=== PATIENT | female | born 1970 | race Caucasian/White ===

== ENCOUNTER 2023-05-05 22:23 | Observation (INO) ==
[2023-05-05 22:54] LABS: Basophils # (auto) 0.01 K/uL (0.00-0.20); Basophils % (auto) 0.3 %; Hematocrit (blood only) 36.4 % (37.0-47.0); Hemoglobin 12.7 g/dl (12.0-16.0); Immature Granulocytes # (auto) 0.01 K/uL (0.01-0.20); Immature Granulocytes % (auto) 0.3 %; Lymphocytes # (auto) 1.04 K/uL (1.20-3.40); Lymphocytes % (auto) 31.2 %; Mean Corpuscular Hemoglobin 30.3 pg (25.0-34.0); Mean Corpuscular Hgb Conc 34.9 g/dL (32.0-36.0); Mean Corpuscular Volume 86.9 fL (80.0-100.0); Mean Platelet Volume 9.3 fL (9.4-12.4); Monocytes # (auto) 0.32 K/uL (0.11-0.59); Monocytes % (auto) 9.6 %; Neutrophils # (auto) 1.95 K/uL (1.40-6.50); Neutrophils % (auto) 58.6 %; Platelet Count 197 K/uL (130-400); RDW Coefficient of Variation 12.7 % (11.5-14.5); RDW Standard Deviation 40.1 fL (36.4-46.3); Red Blood Count 4.19 M/uL (4.20-5.40); White Blood Count 3.33 K/ul (4.8-10.8)
[2023-05-05 23:12] LABS: Albumin Globulin Ratio 2.1 (0.9-2); Albumin Level 4.4 gm/dl (3.4-5.0); BUN Creatinine Ratio 19.7 (10-20); Bilirubin,Total 1.1 mg/dl (0.2-1.0); Calcium 9.1 mg/dl (8.6-10.3); Creatinine Clr Calc Pharmacy 80.1 ml/min; Est GFR (African American) 112.7 ml/min; Est GFR (Non-African American) 97.2 ml/min; Globulin 2.1 gm/dl (2.5-4.0); Potassium 3.6 mmol/L (3.5-5.1); Total Protein 6.5 gm/dl (6.0-8.3)
[2023-05-05 23:18] LABS: Troponin I High Sensitivity 9.3 pg/ml (0-14)
[2023-05-05 23:30] LABS: Partial Thromboplastin Ratio 1.2; Partial Thromboplastin Time 33 Seconds (21-31); Prothrombin Time 11.1 Seconds (9.0-12.0)
[2023-05-05 23:39] LABS: Influenza A virus by PCR Negative (Neg); Influenza B virus by PCR Negative (Neg); RSV by PCR Negative (Neg); SARS CoV2 RNA(COVID-19) Ceph NEGATIVE (Negative)
--- NOTE | 2023-05-05 23:42 | Emergency Department Note ---
Impression & Plan Acute hyponatremia, Acute dyspnea ED Provider Note NAME: MONICA ERWIN AGE: 53 SEX: F : 1970 ARRIVES VIA: Walk-In INFORMANT: Patient, ED PROVIDER(S): Pillo Sorto MD CHIEF COMPLAINT: Shortness of breath MEDICAL DECISION MAKING: Patient presents due to concern for shortness of breath. IV was established and blood work was obtained. Chest x-ray also obtained. Chest x-ray without obvious pneumonia or pneumothorax. Patient was ordered a breathing treatment. Patient was noted to have hyponatremia to 120 with no priors for comparison patient does have leukopenia with a normal hemoglobin and platelet count. The patient's kidney function is unremarkable. Chloride also low. Pro-Alvaro is not elevated COVID flu and RSV negative. Troponin is not elevated. No ST elevations on EKG urine and serum electrolytes and osmolality ordered. I did speak to the on-call hospitalist Dr. Ordonez given the patient's hyponatremia and the patient was admitted to the medicine service. Discussion w/ other healthcare providers: Dr. Ordonez inpatient medicine service Prior /Outside records reviewed: I reviewed an EEG report from Dr. Daniel. Patient's interpretation was normal- appearing awake drowsy EEG. Differential diagnosis: Reactive airway disease, pneumonia, pneumothorax, COPD, CHF, ACS, pulmonary embolism, musculoskeletal, GERD as well as other pathologies were considered. Diagnostics, as interpreted by me: ECG: Sinus bradycardia with first-degree AV block, rate of 55 prolonged MA normal QRS, normal axis no ST elevations, T wave version in V2 but not V3. Cardiac monitoring: An order was placed for continuous cardiac monitoring. The monitor shows a rate of with rhythm. Patient was placed on pulse oximetry Medical decision rules: None Imaging studies: I informally interpreted the patient's chest x-ray does not show obvious pneumonia or pneumothorax with formal report to follow. HPI: Patient presents due to concern for shortness of breath. Patient states that this been ongoing for some time but may be worse just within the last week. The patient has had associated dry cough. She feels as though when she takes a big deep breath she does get some right-sided chest pain and feels as though her lungs cannot completely expand. The patient states that she had an issue with a partial collapsed lung 15 years ago. Patient is a former smoker and was smoking about 15 years ago. Patient denies any leg swelling or calf pain. The patient has not been eating or drinking as much and has had about 20 pound weight loss. Patient states that she has been traveling to and from [place] with increasing frequency as her mother was diagnosed with brain cancer. Patient denies any recent surgeries procedures or hospitalizations and no prior history of DVT or PE. PAST MEDICAL HISTORY: See Below PAST SURGICAL HISTORY: See Below SOCIAL HISTORY: See Below HOME MEDICATIONS: See Below ALLERGIES: See Below VITALS: See Below PHYSICAL EXAMINATION: GENERAL: NAD, non-toxic. Thin in appearance. EYE EXAM: Normal conjunctiva. PERRL, no anisocoria and EOM's grossly intact w/o pain. OROPHARYNX: Moist mucus membranes, grossly normal dentition. NECK: Trachea midline, no stridor. LUNGS: Clear to auscultation. Normal chest wall mechanics. HEART: NSR, no MRG. ABDOMEN: Abdomen soft, non-tender, no masses, no rebound or guarding. BACK: No CVA TTP. SKIN: No rashes and no bruising. UPPER EXTREMITIES: Upper extremities are grossly normal. LOWER EXTREMITIES: Grossly normal, no edema. Negative Homans' sign bilaterally. NEURO EXAM: A&O x3, cranial nerves II-XII grossly intact, normal speech, moves all 4 extremities. Past Med/Surg History Medical History Pelvic fracture Lumbar disc disease No chronic diseases present Surgical History Status post endovenous radiofrequency ablation (RFA) of saphenous vein Inguinal hernia No significant past surgical history Family History Mother Breast cancer Social History Smoking Status: Former smoker Preferred Language: Lebanese Feels Safe at Home: Yes Allergies Allergies Allergy/AdvReac Type Severity Reaction Status Date / Time peanut Allergy Severe edema Verified 05/06/23 00:17 latex Allergy Intermediate Rash Verified 05/06/23 00:17 wheat Allergy Intermediate CELIAC Verified 05/06/23 00:17 DISEASE escitalopram AdvReac Severe Seizure Verified 05/06/23 00:17 oxycodone AdvReac Severe Seizure Verified 05/06/23 00:17 acetaminophen AdvReac Intermediate Vomiting Verified 05/06/23 00:17 bupropion [From Wellbutrin] AdvReac Intermediate VISUAL Verified 05/06/23 00:17 DISTURBANCE Home Meds Home Medications Medication Instructions Recorded Confirmed No Known Home Medications 05/06/23 05/06/23 Results & Data (ED) Vital Signs Vital Signs - 24 hr 05/05/23 22:25 05/06/23 00:23 Temperature 35.4 C L Temperature Source Temporal Artery Scan Pulse Rate 56 L 57 L Respiratory Rate 16 Respiratory Effort / Characteristics Non-Labored Spontaneous Respiratory Depth Normal Blood Pressure 142/81 H Blood Pressure Mean 101 Pulse Oximetry 100 Oxygen Delivery Method Room Air Sepsis Recent Fever Within 48 Hours No Sepsis New/Unexplained Change in Mental Status No Sepsis Action Taken by Nursing No Action Required Home Medications Current Medication List: was personally reviewed by me Laboratory Data Attestation: I reviewed the patient's lab results. 05/05/23 22:40 05/05/23 22:40 Lab Results 05/05/23 05/05/23 Range/Units 22:40 22:52 WBC 3.33 L (4.8-10.8) K/ul RBC 4.19 L (4.20-5.40) M/uL Hgb 12.7 (12.0-16.0) g/dl Hct 36.4 L (37.0-47.0) % MCV 86.9 (80.0-100.0) fL MCH 30.3 (25.0-34.0) pg MCHC 34.9 (32.0-36.0) g/dL RDW Std Deviation 40.1 (36.4-46.3) fL RDW Coeff of Emanuel 12.7 (11.5-14.5) % Plt Count 197 (130-400) K/uL MPV 9.3 L (9.4-12.4) fL Immature Gran % (Auto) 0.3 % Neut % (Auto) 58.6 % Lymph % (Auto) 31.2 % [place] % (Auto) 9.6 % Eos % (Auto) 0.0 % Baso % (Auto) 0.3 % Neut # (Auto) 1.95 (1.40-6.50) K/uL Lymph # (Auto) 1.04 L (1.20-3.40) K/uL [place] # (Auto) 0.32 (0.11-0.59) K/uL Eos # (Auto) 0.00 (0.00-0.50) K/uL Baso # (Auto) 0.01 (0.00-0.20) K/uL Immature Gran # (Auto) 0.01 (0.01-0.20) K/uL PT 11.1 (9.0-12.0) Seconds INR 1.0 (0.9-1.1) APTT 33 H (21-31) Seconds PTT Ratio 1.2 Sodium 120 L (136-145) mmol/L Potassium 3.6 (3.5-5.1) mmol/L Chloride 85 L (98-107) mmol/L Carbon Dioxide 28 (21-32) mmol/L Anion Gap 7 (3-11) BUN 14 (6-23) mg/dl Creatinine 0.71 (0.6-1.2) mg/dl Est Cr Clr Drug Dosing 80.1 ml/min Est GFR ( Amer) 112.7 ml/min Est GFR (Non-Af Amer) 97.2 ml/min BUN/Creatinine Ratio 19.7 (10-20) Glucose 77 (70-99(Fasting)) mg/dl Calcium 9.1 (8.6-10.3) mg/dl Total Bilirubin 1.1 H (0.2-1.0) mg/dl AST 27 (13-39) U/L ALT 21 (7-52) U/L Alkaline Phosphatase 73 (34-104) U/L Troponin I High Sens 9.3 (0-14) pg/ml Total Protein 6.5 (6.0-8.3) gm/dl Albumin 4.4 (3.4-5.0) gm/dl Globulin 2.1 L (2.5-4.0) gm/dl Albumin/Globulin Ratio 2.1 H (0.9-2) Procalcitonin < 0.02 (0-0.5) ng/ml SARS-CoV-2 (PCR) NEGATIVE (Negative) Influenza Type A (PCR) Negative (Neg) Influenza Type B (PCR) Negative (Neg) RSV (RT-PCR) Negative (Neg) Administered Medications Discontinued Medications Albuterol (Albut/Ipratrop 3mg/0.5mg Neb 3 Ml Vial) 3 ml NEB NOW STA; Protocol Stop: 05/05/23 23:53 Last Admin: 05/06/23 00:01 Dose: 3 ml Documented By: VALERI Azithromycin (Azithromycin 250 Mg Tab) 500 mg PO NOW ONE Stop: 05/05/23 23:53 Last Admin: 05/06/23 00:01 Dose: 500 mg Documented By: VALERI Discharge Plan Visit Data Chief Complaint: Shortness of Breath/Dyspnea Stated Complaint: SOB, CHEST PAIN, PALPITATIONS ED Provider: Pillo Sorto Discharge Problem: Acute hyponatremia, Acute dyspnea Forms Stand Alone Forms: [facility] Prescriptions Prescriptions: No Action No Known Home Medications Referrals Referrals: Hernando Maki MD [Primary Care Provider] -
[2023-05-06] MEDS: AZITHROMYCIN 250 MG TAB PO ONE (00:01)
[2023-05-06] MEDS: ALBUT/IPRATROP 3MG/0.5MG NEB 3 ML VIAL NEB STA (00:01)
[2023-05-06 01:00] LABS: Magnesium 2.1 mg/dl (1.7-2.4)
[2023-05-06] MEDS: SODIUM CHLORIDE 0.9% 500 ML IV ONE (01:00)
[2023-05-06 01:17] LABS: Thyroid Stimulating Hormone 3.152 uIu/ml (0.300-4.500)
[2023-05-06] MEDS ORDERED: ACETAMINOPHEN 325 MG TAB PO PRN (01:17)
[2023-05-06] MEDS: OPTIRAY 350 500ml IV ONE (01:39)
--- NOTE | 2023-05-06 02:16 | History & Physical Report ---
Date of Service May 06, 2023 Assessment & Plan (1) Acute hyponatremia: Plan: Worsening hyponatremia noted on review of outpatient blood work from January 2023 Possible seizure History multiple concussions hx paranoia/mood disorder/PTSD Patient notably anxious on exam with multiple somatic complaints. Patient currently not on maintenance medications hx pituitary adenoma as per records Recent outpatient MRI negative for tumor past tobacco/alcohol abuse Medical telemetry Careful correction of sodium Hyponatremia workup Nephrology consult Re: Hyponatremia Initiate Keppra for possible new onset seizure Seizure precautions, Ativan prn active seizures Brain MRI for seizure workup Neurology consult Re: Possible new onset seizures (Patient known to [facility]. Defer decision regarding EEG to specialist given recent outpatient EEG from last month.) Inpatient psychiatry consult as per patient request for bipolar disorder. DVT prophylaxis per Lovenox subcu Full code. Text document was generated using [employer] voice recognition software. It may contain grammatical or spelling errors. Kindly contact undersigned for clarification of any documentation item in question. History of Present Illness Chief Complaint: Shortness of breath, chest pain, worsening seizures Primary Care Provider: Hernando Maki MD History obtained from patient, family, and records. Medical history significant for paranoia, mood disorder, PTSD, pituitary adenoma as per records, history of multiple concussions, past tobacco/alcohol abuse Patient thinks she is having more seizures the last few weeks. Patient waking up with with mouth bruising, denies incontinence. Episodic shaking episodes which she has told her doctors about before. Patient admits to a lot of stress at home and at work the last few months. Patient wants to start taking medication again for bipolar disorder. Denies suicidality. Worsening shortness of breath the past week. Dry cough symptoms with poor appetite. Achy abdominal pain with nausea with emesis and transient hematuria symptoms. Does not think she is drinking enough water. Waking up gasping for air. 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 Pleuritic right-sided chest pain. 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 Allergies Allergy/AdvReac Type Severity Reaction Status Date / Time peanut Allergy Severe edema Verified 05/06/23 00:17 latex Allergy Intermediate Rash Verified 05/06/23 00:17 wheat Allergy Intermediate CELIAC Verified 05/06/23 00:17 DISEASE escitalopram AdvReac Severe Seizure Verified 05/06/23 00:17 oxycodone AdvReac Severe Seizure Verified 05/06/23 00:17 acetaminophen AdvReac Intermediate Vomiting Verified 05/06/23 00:17 bupropion [From Wellbutrin] AdvReac Intermediate VISUAL Verified 05/06/23 00:17 DISTURBANCE Home Medications Medication Instructions Recorded Confirmed Type No Known Home Medications 05/06/23 05/06/23 History Past Med/Surg History Medical History Pelvic fracture Lumbar disc disease No chronic diseases present Surgical History Status post endovenous radiofrequency ablation (RFA) of saphenous vein Inguinal hernia No significant past surgical history Family History Mother Breast cancer Social History Smoking Status: Never smoker Hx Alcohol Use: No Hx Substance Use: No Preferred Language: Bulgarian Communication Ability: 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 Beliefs That Will Affect Care: None Feels Safe at Home: Yes Review of Systems Review of Systems: As per HPI, all other systems reviewed and negative Physical Exam Physical Exam: GENERAL: Slightly uncomfortable, anxious, no respiratory distress SKIN: Normal color, warm HEENT: [place] palpebral conjunctivae, no ptosis, dry buccal mucosa NECK : Supple, no tenderness CHEST : CTA, right chest wall tenderness HEART : Bradycardic, no obvious murmurs ABDOMEN: Some distention, nontender EXTREMITIES : No LE swelling/tenderness, no other conspicuous deformities noted NEUROLOGIC : Coherent, no facial asymmetry, no other gross focality Results & Data Results & Data Vital Signs (Past 12 Hours) Vital Signs Temp Pulse Resp BP Pulse Ox O2 Del Method 05/06/23 02:12 Room Air 05/06/23 02:12 98 Room Air 05/06/23 02:11 Room Air 05/06/23 02:00 121/81 05/06/23 02:00 100 05/06/23 01:30 57 L 7 L 99 05/06/23 01:00 58 L 12 99 05/06/23 01:00 120/79 03/21/24 00:30 62 9 L 99 05/06/23 00:23 57 L 9 L 99 05/06/23 00:23 57 L 05/05/23 22:25 35.4 C L 56 L 16 142/81 H 100 Room Air Laboratory Results Laboratory Results WBC 3.33 K/ul (4.8-10.8) L 05/05/23 22:40 RBC 4.19 M/uL (4.20-5.40) L 05/05/23 22:40 Hgb 12.7 g/dl (12.0-16.0) 05/05/23 22:40 Hct 36.4 % (37.0-47.0) L 05/05/23 22:40 MCV 86.9 fL (80.0-100.0) 05/05/23 22:40 MCH 30.3 pg (25.0-34.0) 05/05/23 22:40 MCHC 34.9 g/dL (32.0-36.0) 05/05/23 22:40 RDW Std Deviation 40.1 fL (36.4-46.3) 05/05/23 22:40 RDW Coeff of Emanuel 12.7 % (11.5-14.5) 05/05/23 22:40 Plt Count 197 K/uL (130-400) 05/05/23 22:40 MPV 9.3 fL (9.4-12.4) L 05/05/23 22:40 Immature Gran % (Auto) 0.3 % 05/05/23 22:40 Neut % (Auto) 58.6 % 05/05/23 22:40 Lymph % (Auto) 31.2 % 05/05/23 22:40 [place] % (Auto) 9.6 % 05/05/23 22:40 Eos % (Auto) 0.0 % 05/05/23 22:40 Baso % (Auto) 0.3 % 05/05/23 22:40 Neut # (Auto) 1.95 K/uL (1.40-6.50) 05/05/23 22:40 Lymph # (Auto) 1.04 K/uL (1.20-3.40) L 05/05/23 22:40 [place] # (Auto) 0.32 K/uL (0.11-0.59) 05/05/23 22:40 Eos # (Auto) 0.00 K/uL (0.00-0.50) 05/05/23 22:40 Baso # (Auto) 0.01 K/uL (0.00-0.20) 05/05/23 22:40 Immature Gran # (Auto) 0.01 K/uL (0.01-0.20) 05/05/23 22:40 PT 11.1 Seconds (9.0-12.0) 05/05/23 22:40 INR 1.0 (0.9-1.1) 05/05/23 22:40 APTT 33 Seconds (21-31) H 05/05/23 22:40 PTT Ratio 1.2 05/05/23 22:40 Sodium 120 mmol/L (136-145) L 05/05/23 22:40 Potassium 3.6 mmol/L (3.5-5.1) 05/05/23 22:40 Chloride 85 mmol/L (98-107) L 05/05/23 22:40 Carbon Dioxide 28 mmol/L (21-32) 05/05/23 22:40 Anion Gap 7 (3-11) 05/05/23 22:40 BUN 14 mg/dl (6-23) 05/05/23 22:40 Creatinine 0.71 mg/dl (0.6-1.2) 05/05/23 22:40 Est Cr Clr Drug Dosing 80.1 ml/min 05/05/23 22:40 Est GFR ( Amer) 112.7 ml/min 05/05/23 22:40 Est GFR (Non-Af Amer) 97.2 ml/min 05/05/23 22:40 BUN/Creatinine Ratio 19.7 (10-20) 05/05/23 22:40 Glucose 77 mg/dl (70-99(Fasting)) 05/05/23 22:40 Osmolality 249 mOsm/kg (280-300) L 05/05/23 22:40 Calcium 9.1 mg/dl (8.6-10.3) 05/05/23 22:40 Magnesium 2.1 mg/dl (1.7-2.4) 05/05/23 22:40 Total Bilirubin 1.1 mg/dl (0.2-1.0) H 05/05/23 22:40 AST 27 U/L (13-39) 05/05/23 22:40 ALT 21 U/L (7-52) 05/05/23 22:40 Alkaline Phosphatase 73 U/L (34-104) 05/05/23 22:40 Troponin I High Sens 9.3 pg/ml (0-14) 05/05/23 22:40 Total Protein 6.5 gm/dl (6.0-8.3) 05/05/23 22:40 Albumin 4.4 gm/dl (3.4-5.0) 05/05/23 22:40 Globulin 2.1 gm/dl (2.5-4.0) L 05/05/23 22:40 Albumin/Globulin Ratio 2.1 (0.9-2) H 05/05/23 22:40 Lipase 26 U/L (11-82) 05/05/23 22:40 Procalcitonin < 0.02 ng/ml (0-0.5) 05/05/23 22:40 TSH 3.152 uIu/ml (0.300-4.500) 05/05/23 22:40 SARS-CoV-2 (PCR) NEGATIVE (Negative) 05/05/23 22:52 Influenza Type A (PCR) Negative (Neg) 05/05/23 22:52 Influenza Type B (PCR) Negative (Neg) 05/05/23 22:52 RSV (RT-PCR) Negative (Neg) 05/05/23 22:52 Abdomen/Pelvis CT 05/06/23 01:16 Exam(s): CT ABDOMEN + PELVIS With Contrast IV Amt: 111 cc opti 350 EXAM: CT Abdomen and Pelvis With Intravenous Contrast CLINICAL HISTORY: Reason for exam: abd pain. TECHNIQUE: Axial computed tomography images of the abdomen and pelvis with intravenous contrast. CTDI is 9.46 mGy and DLP is 475.78 mGy-cm. Automated exposure control was utilized for the study. A dose lowering technique was utilized adhering to the principles of ALARA. CONTRAST: Patient received 111 cc opti 350 of IV contrast COMPARISON: No relevant prior studies available. FINDINGS: Lung bases: Unremarkable. No mass. No consolidation. ABDOMEN: Liver: Unremarkable. No mass. Gallbladder and bile ducts: Unremarkable. No calcified stones. No ductal dilation. Pancreas: Unremarkable. No mass. No ductal dilation. Spleen: Unremarkable. No splenomegaly. Adrenals: Unremarkable. No mass. Kidneys and ureters: Unremarkable. No solid mass. No hydronephrosis. Stomach and bowel: Mild wall thickening of small bowel, correlate for mild enteritis. Mild fecal retention. No obstruction. PELVIS: Appendix: No findings to suggest acute appendicitis. Bladder: Unremarkable. No mass. Reproductive: Unremarkable as visualized. ABDOMEN and PELVIS: Intraperitoneal space: Unremarkable. No free air. No significant fluid collection. 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 No acute fracture. No dislocation. Soft tissues: Unremarkable. Vasculature: Unremarkable. No abdominal aortic aneurysm. Lymph nodes: Unremarkable. No enlarged lymph nodes. IMPRESSION: Mild wall thickening of small bowel, correlate for mild enteritis. Electronically signed by: Kevin Hoang MD 05/06/23 03:34 AM Chest CTA 05/06/23 01:16 Exam(s): CTA CHEST IV Amt: 111 cc opti 350 EXAM: CT Angiography Chest With Intravenous Contrast CLINICAL HISTORY: Reason for exam: cp. TECHNIQUE: Axial computed tomographic angiography images of the chest with intravenous contrast. CTDI is 9.55 mGy and DLP is 298.8 mGy-cm. Automated exposure control was utilized for the study. A dose lowering technique was utilized adhering to the principles of ALARA. MIP reconstructed images were created and reviewed. COMPARISON: No relevant prior studies available. FINDINGS: Pulmonary arteries: Unremarkable. No pulmonary embolism. Aorta: No acute findings. No thoracic aortic aneurysm. Lungs: Unremarkable. No mass. No consolidation. Pleural space: Unremarkable. No significant effusion. No pneumothorax. Heart: Unremarkable. No cardiomegaly. No significant pericardial effusion. No evidence of RV dysfunction. Bones/joints: No acute fracture. No dislocation. Soft tissues: Unremarkable. Lymph nodes: Unremarkable. No enlarged lymph nodes. IMPRESSION: Normal chest CTA. No pulmonary embolism. Electronically signed by: Kevin Hoang MD 05/06/23 03:[address] 05/06/23 01:16 Exam(s): CT HEAD Without Contrast EXAM: CT Head Without Intravenous Contrast CLINICAL HISTORY: Reason for exam: ricks, sz. TECHNIQUE: Axial computed tomography images of the head/brain without intravenous contrast. CTDI is 37.78 mGy and DLP is 624.41 mGy-cm. Automated exposure control was utilized for the study. A dose lowering technique was utilized adhering to the principles of ALARA. COMPARISON: Comparison made to prior brain MRI from April 13, 2023. FINDINGS: Brain: Unremarkable. No hemorrhage. No significant white matter disease. No edema. Ventricles: Unremarkable. No ventriculomegaly. Bones/joints: Unremarkable. No acute fracture. Soft tissues: Unremarkable. Sinuses: Unremarkable as visualized. No acute sinusitis. Mastoid air cells: Unremarkable as visualized. No mastoid effusion. IMPRESSION: No evidence of acute intracranial pathology. Electronically signed by: Lara Lucas MD 05/06/23 03:13 AM Diagnostic Findings EKG as per my interpretation : Rate 55, sinus bradycardia, normal axis, 1 AVB, septal infarct, T wave inversions, septal leads
[2023-05-06] MEDS: levETIRAcetam 500 MG/5 ML VIAL IV STA (03:05)
--- NOTE | 2023-05-06 03:09 | CT Scan Report ---
Exam(s): CTA CHEST IV Amt: 111 cc opti 350 EXAM: CT Angiography Chest With Intravenous Contrast CLINICAL HISTORY: Reason for exam: cp. TECHNIQUE: Axial computed tomographic angiography images of the chest with intravenous contrast. CTDI is 9.55 mGy and DLP is 298.8 mGy-cm. Automated exposure control was utilized for the study. A dose lowering technique was utilized adhering to the principles of ALARA. MIP reconstructed images were created and reviewed. COMPARISON: No relevant prior studies available. FINDINGS: Pulmonary arteries: Unremarkable. No pulmonary embolism. Aorta: No acute findings. No thoracic aortic aneurysm. Lungs: Unremarkable. No mass. No consolidation. Pleural space: Unremarkable. No significant effusion. No pneumothorax. Heart: Unremarkable. No cardiomegaly. No significant pericardial effusion. No evidence of RV dysfunction. Bones/joints: No acute fracture. No dislocation. Soft tissues: Unremarkable. Lymph nodes: Unremarkable. No enlarged lymph nodes. IMPRESSION: Normal chest CTA. No pulmonary embolism. Electronically signed by: Kevin Hoang MD 05/06/23 03:08 AM
--- NOTE | 2023-05-06 03:14 | CT Scan Report ---
Exam(s): CT HEAD Without Contrast EXAM: CT Head Without Intravenous Contrast CLINICAL HISTORY: Reason for exam: ricks, sz. TECHNIQUE: Axial computed tomography images of the head/brain without intravenous contrast. CTDI is 37.78 mGy and DLP is 624.41 mGy-cm. Automated exposure control was utilized for the study. A dose lowering technique was utilized adhering to the principles of ALARA. COMPARISON: Comparison made to prior brain MRI from April 13, 2023. FINDINGS: Brain: Unremarkable. No hemorrhage. No significant white matter disease. No edema. Ventricles: Unremarkable. No ventriculomegaly. Bones/joints: Unremarkable. No acute fracture. Soft tissues: Unremarkable. Sinuses: Unremarkable as visualized. No acute sinusitis. Mastoid air cells: Unremarkable as visualized. No mastoid effusion. IMPRESSION: No evidence of acute intracranial pathology. Electronically signed by: Lara Lucas MD 05/06/23 03:13 AM
--- NOTE | 2023-05-06 03:35 | CT Scan Report ---
Exam(s): CT ABDOMEN + PELVIS With Contrast IV Amt: 111 cc opti 350 EXAM: CT Abdomen and Pelvis With Intravenous Contrast CLINICAL HISTORY: Reason for exam: abd pain. TECHNIQUE: Axial computed tomography images of the abdomen and pelvis with intravenous contrast. CTDI is 9.46 mGy and DLP is 475.78 mGy-cm. Automated exposure control was utilized for the study. A dose lowering technique was utilized adhering to the principles of ALARA. CONTRAST: Patient received 111 cc opti 350 of IV contrast COMPARISON: No relevant prior studies available. FINDINGS: Lung bases: Unremarkable. No mass. No consolidation. ABDOMEN: Liver: Unremarkable. No mass. Gallbladder and bile ducts: Unremarkable. No calcified stones. No ductal dilation. Pancreas: Unremarkable. No mass. No ductal dilation. Spleen: Unremarkable. No splenomegaly. Adrenals: Unremarkable. No mass. Kidneys and ureters: Unremarkable. No solid mass. No hydronephrosis. Stomach and bowel: Mild wall thickening of small bowel, correlate for mild enteritis. Mild fecal retention. No obstruction. PELVIS: Appendix: No findings to suggest acute appendicitis. Bladder: Unremarkable. No mass. Reproductive: Unremarkable as visualized. ABDOMEN and PELVIS: Intraperitoneal space: Unremarkable. No free air. No significant fluid collection. 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 No acute fracture. No dislocation. Soft tissues: Unremarkable. Vasculature: Unremarkable. No abdominal aortic aneurysm. Lymph nodes: Unremarkable. No enlarged lymph nodes. IMPRESSION: Mild wall thickening of small bowel, correlate for mild enteritis. Electronically signed by: Kevin Hoang MD 05/06/23 03:34 AM
[2023-05-06] MEDS ORDERED: LORazepam 1 MG in SYRINGE 0.5 ML IV PRN (03:52)
[2023-05-06] MEDS ORDERED: PROMETHAZINE HCL 6.25 MG in SODIUM CHLORIDE 0.9% 50 ML IV PRN (03:52)
[2023-05-06] MEDS: guaiFENesin 600 MG TABCR PO STA (04:42)
[2023-05-06] MEDS: LORazepam 0.25 MG in SYRINGE 0.125 ML IV STA (04:42)
[2023-05-06 04:44] LABS: Basophils # (auto) 0.02 K/uL (0.00-0.20); Basophils % (auto) 0.6 %; Hematocrit (blood only) 40.4 % (37.0-47.0); Hemoglobin 14.3 g/dl (12.0-16.0); Lymphocytes # (auto) 1.23 K/uL (1.20-3.40); Lymphocytes % (auto) 37.3 %; Mean Corpuscular Hemoglobin 30.3 pg (25.0-34.0); Mean Corpuscular Hgb Conc 35.4 g/dL (32.0-36.0); Mean Corpuscular Volume 85.6 fL (80.0-100.0); Mean Platelet Volume 9.4 fL (9.4-12.4); Monocytes # (auto) 0.32 K/uL (0.11-0.59); Monocytes % (auto) 9.7 %; Neutrophils # (auto) 1.73 K/uL (1.40-6.50); Neutrophils % (auto) 52.4 %; Platelet Count 202 K/uL (130-400); RDW Coefficient of Variation 12.3 % (11.5-14.5); RDW Standard Deviation 38.5 fL (36.4-46.3); Red Blood Count 4.72 M/uL (4.20-5.40)
[2023-05-06 05:16] LABS: BUN Creatinine Ratio 16.9 (10-20); Calcium 9.3 mg/dl (8.6-10.3); Creatinine Clr Calc Pharmacy 87.5 ml/min; Est GFR (African American) 117.5 ml/min; Est GFR (Non-African American) 101.4 ml/min; Potassium 3.9 mmol/L (3.5-5.1)
[2023-05-06] MEDS: GADOBUTROL 65ML VIAL IV ONE (05:18)
--- NOTE | 2023-05-06 07:11 | Magnetic Resonance Report ---
MRI OF THE BRAIN COMBO CLINICAL HISTORY: Seizure. COMPARISON STUDY: CT of the brain dated 05/06/2023. MRI of the brain dated 04/13/2023. TECHNIQUE: MRI of the brain was performed utilizing various T1 and T2-weighted sequences in the axial , sagittal, and coronal planes. Contrast-enhanced sequences were acquired following the administratio n of 5.5 cc of Gadavist. The examination is performed using the seizure protocol. The examination is modestly degraded by motion artifact. FINDINGS: Brain parenchyma: The brain parenchyma is normal in appearance. There is no hemorrhage or mass effect . There is no restricted diffusion to suggest acute ischemia. No enhancing mass lesion is identified on the postcontrast images. Farooq-white matter differentiation is preserved. No extra-axial fluid guillermo ection is seen. The cerebellar tonsils are normal in configuration. The hippocampi are normal and sym metric. Ventricles, sulci, and cisterns: Normal in configuration. Pituitary and sella: Unremarkable. Intracranial vasculature: Normal flow voids are maintained at the skull base. Orbits: The bony orbits are grossly intact. Orbital contents are normal in appearance. Sinuses and mastoids: There is an 11 mm retention cyst in the left maxillary sinus. The remaining par anasal sinuses and the mastoid air cells are clear. Calvarium: Unremarkable. Cervical cord: Partially visualized cervical spinal cord is normal in morphology and signal intensity . IMPRESSION: No acute intracranial abnormality. ACT 112: Negative or not required by law. Electronically signed by: Melvin Houston M.D. 05/06/2023 7:08 AM
--- NOTE | 2023-05-06 07:58 | XRay Report ---
XR chest 1V not portable CLINICAL HISTORY: Chest pain, nonspecific COMPARISON STUDY: Chest December 06, 2018. FINDINGS: Lung volumes are normal. Lungs are clear. There is no pneumothorax or pleural effusion. Car diac size is normal. Mediastinal contours are normal. There is no evidence for pulmonary edema. IMPRESSION: No acute cardiopulmonary findings. ACT 112: Negative or not required by law. Electronically signed by: Eben Rey M.D. 05/06/2023 7:57 AM
[2023-05-06] MEDS: levETIRAcetam 500 MG TAB PO SCH (09:15)
[2023-05-06] MEDS: ENOXAPARIN INJ 30 MG/0.3 ML SYR SQ SCH (09:15)
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
--- NOTE | 2023-05-06 09:30 | Electrocardiogram Report ---
Test Reason : Blood Pressure : / mmHG Vent. Rate : 055 BPM Atrial Rate : 055 BPM P-R Int : 226 ms QRS Dur : 086 ms QT Int : 434 ms P-R-T Axes : 070 074 054 degrees QTc Int : 415 ms Sinus bradycardia with 1st degree A-V block Possible Left atrial enlargement Abnormal ECG When compared with ECG of 09-NOV-1997 15:19, WI interval has increased Confirmed by Chris Kay ([id number]) on 05/06/2023 9:30:02 AM Referred By: REFERRED SELF Confirmed By:Devon Kay
[2023-05-06 10:10] LABS: Appearance Urine Clear (Clear); Bilirubin Urine Negative (Negative); Blood Urine Negative (Negative); Color Urine Yellow; Glucose Urine UA Negative (Negative); Ketones Urine Negative (Negative); Leukocyte Esterase Urine Negative (Negative); Nitrite Urine Negative (Negative); Protein Urine Negative (Negative); Specific Gravity Urine 1.029 (1.000-1.030); Urobilinogen Urine Negative (Negative); pH Urine 7.5 (4.5-7.5)
[2023-05-06 10:26] LABS: Urine Potassium 21.9 mmol/L
[2023-05-06 10:34] LABS: Amphetamines+Metham, Urine Neg (Neg); Barbiturates, Urine Neg (Neg); Benzodiazepine, Urine Neg (Neg); Cocaine, Urine Neg (Neg); MDMA (Ecstacy), Urine Neg (Neg); Marijuana, Urine Neg (Neg); Methadone, Urine Neg (Neg); Opiate, Urine Neg (Neg); Phencyclidine, Urine Neg (Neg)
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
[2023-05-06] MEDS: DEXTROSE 5% 1,000 ML IV SCH (11:03)
[2023-05-06] MEDS: DESMOPRESSIN ACETATE 1 MCG in SODIUM CHLORIDE 0.9% 50 ML IV ONE (13:34)
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
--- NOTE | 2023-05-06 15:37 | Communication Note ---
Date of Service: May 06, 2023 consult received, chart reviewed. Patient was seen by liaison: Met with patient for consult service. Patient resting in bed, A&Ox4, able to answer questions. Patient appears distracted but answered questions appropriately. She reports having a history of Bipolar disorder, diagnosed by Dr. Orourke at [facility], "a few years ago"; patient also had therapy at that time. Unsure if patient is a reliable historian, gives vague symptoms and timeframes are non specific. She denies a history of psych inpatient treatment or suicidal i deation/SIB. She feels she has had marisela in the past but again, did not require inpatient treatment. She has had several medication trials, most of which "didn't work well. A lot of side effects". She had been prescribed Pristiq last month, patient reports not taking it currently and does not feel it was effective. She reports a history of visual hallucinations, paranoia and possibly voices. Denies having any of these symptoms in the past few days. She has a history of alcoholism, sober x 3 years. She recently smoked marijuana, "only once" and is regretting this. Patient reports her work is stressful d/t poor concentration and poor sleep; also financially struggling. Patient has been traveling to [place] frequently to support her mother with brain cancer. She is focused on starting medications "for bipolar", psychiatrist will follow-up. She is interested in outpatient referrals for psych med management and therapy; DIEGO signed for [facility]. Will explore options for therapy. Patient reports having supports, including her brother (Abdulaziz), DIEGO signed. Liaison to reach out to brother for collateral. Of note patient was admitted with sodium of 120 and today 129 which can explain some degree of AMS. She is not an immediate candidate to resume psychiatric medication due to this. Unclear to what degree her psychiatric condition is contributing to her polydipsia. Full consult to follow as patient to remain hospitalized.
--- NOTE | 2023-05-06 20:44 | Hospitalist Progress Note ---
Date of Service May 06, 2023 Assessment & Plan (1) Acute hyponatremia: Plan Pt is a 53yoF with PMHx significant for paranoia, mood disorder, PTSD, pituitary adenoma as per records, history of multiple concussions, past tobacco/alcohol abuse presenting with hyponatremia, altered mental status and possible seizures. Hyponatremia- sodium of 120 on admission. Nephrology on board, concerned correcting too quickly. On D5w with DDVAP. Per nephrology goal is to try to correct Na about 10 in 24 hrs and 18 in 48 hrs. Bipolar, paranoia- psych consulted, appreciate recs New seizures- brain MRI with no acutr findings. neurology consulted, pending repeat EEG outpt, recommending not to start antiseizure meds at this time. Keppra discontinued. Seizure precautions, Ativan prn active seizures For full documentation or further discussion of the above, please see History and Physical from the same date of service. DVT prophylaxis per Lovenox subcu Full code. Admission and Anticipated Discharge Date Admission Date: May 06, 2023 Subjective Pt was seen while still down in the ED. States that she was having "trouble breathing with right lung". Was on RA during the exam. Review of Systems Review of Systems: All systems reviewed & are unremarkable except as noted in Subjective Physical Exam Physical Exam: General: Alert, oriented. No acute distress Skin: No noted rashes or bruises Psych: Appropriate mood and affect Neuro: No gross deficits HEENT: NC/AT Chest: Nontender to palpation. CV: RRR, Normal s1, s2. No murmurs appreciated Resp: Breath sounds clear bilaterally, no increased effort of breathing. No crackles/rhonchi/rales. Abdomen: BS+. Soft, nontender, nondistended. No guarding. No organomegaly appreciated. Extremities: No edema in lower extremities bilaterally. Results & Data Results & Data Vital Signs (Past 12 Hours) Vital Signs Temp Pulse Pulse Resp BP BP Pulse Ox 05/06/23 08:00 52 L 10 L 05/06/23 08:00 118/79 05/06/23 07:46 119/79 05/06/23 07:46 56 L 10 L 05/06/23 07:24 51 L 05/06/23 07:00 52 L 10 L 05/06/23 04:36 52 L 14 114/83 100 05/06/23 04:10 55 L 05/06/23 02:12 05/06/23 02:12 98 05/06/23 02:11 05/06/23 02:00 121/81 05/06/23 02:00 100 05/06/23 01:30 57 L 7 L 99 05/06/23 01:00 58 L 12 99 05/06/23 01:00 120/79 05/06/23 00:30 62 9 L 99 05/06/23 00:23 57 L 9 L 99 05/06/23 00:23 57 L 05/05/23 22:25 35.4 C L 56 L 16 142/81 H 100 O2 Del Method 05/06/23 08:00 05/06/23 08:00 05/06/23 07:46 05/06/23 07:46 05/06/23 07:24 05/06/23 07:00 05/06/23 04:36 Room Air 05/06/23 04:10 05/06/23 02:12 Room Air 05/06/23 02:12 Room Air 05/06/23 02:11 Room Air 05/06/23 02:00 05/06/23 02:00 05/06/23 01:30 05/06/23 01:00 05/06/23 01:00 05/06/23 00:30 05/06/23 00:23 05/06/23 00:23 05/05/23 22:25 Room Air
[2023-05-06] MEDS: HYDROCODONE/ACETAMOPHEN 5/325MG TAB PO PRN (20:45)
[2023-05-06] MEDS: guaiFENesin 600 MG TABCR PO SCH (21:49)
[2023-05-06] MEDS ORDERED: Nursing to Pharmacy Communication SCH (22:00)
[2023-05-07 05:08] LABS: Basophils # (auto) 0.02 K/uL (0.00-0.20); Basophils % (auto) 0.8 %; Hematocrit (blood only) 37.9 % (37.0-47.0); Hemoglobin 13.2 g/dl (12.0-16.0); Lymphocytes # (auto) 0.81 K/uL (1.20-3.40); Mean Corpuscular Hemoglobin 29.9 pg (25.0-34.0); Mean Corpuscular Hgb Conc 34.8 g/dL (32.0-36.0); Mean Corpuscular Volume 85.9 fL (80.0-100.0); Mean Platelet Volume 9.3 fL (9.4-12.4); Monocytes # (auto) 0.34 K/uL (0.11-0.59); Neutrophils # (auto) 1.44 K/uL (1.40-6.50); Neutrophils % (auto) 55.2 %; Platelet Count 195 K/uL (130-400); RDW Coefficient of Variation 12.8 % (11.5-14.5); Red Blood Count 4.41 M/uL (4.20-5.40); White Blood Count 2.61 K/ul (4.8-10.8)
[2023-05-07 05:21] LABS: Albumin Globulin Ratio 2.1 (0.9-2); Albumin Level 3.8 gm/dl (3.4-5.0); BUN Creatinine Ratio 10.8 (10-20); Bilirubin,Total 1.1 mg/dl (0.2-1.0); Calcium 8.4 mg/dl (8.6-10.3); Creatinine Clr Calc Pharmacy 87.5 ml/min; Est GFR (African American) 117.5 ml/min; Est GFR (Non-African American) 101.4 ml/min; Globulin 1.8 gm/dl (2.5-4.0); Magnesium 1.8 mg/dl (1.7-2.4); Phosphorus 2.8 mg/dl (2.5-4.9); Potassium 3.4 mmol/L (3.5-5.1); Total Protein 5.6 gm/dl (6.0-8.3)
--- NOTE | 2023-05-07 09:05 | Discharge Summary ---
Discharge Summary Date of Service May 07, 2023 Notes For Next Care Provider Pt eloped from the hospital. Per psych, pursuing a 302 warrant. Medication Changes From Visit None Admission HPI Per Admitting Provider History obtained from patient, family, and records. Medical history significant for paranoia, mood disorder, PTSD, pituitary adenoma as per records, history of multiple concussions, past tobacco/alcohol abuse Patient thinks she is having more seizures the last few weeks. Patient waking up with with mouth bruising, denies incontinence. Episodic shaking episodes which she has told her doctors about before. Patient admits to a lot of stress at home and at work the last few months. Patient wants to start taking medication again for bipolar disorder. Denies suicidality. Worsening shortness of breath the past week. Dry cough symptoms with poor appetite. Achy abdominal pain with nausea with emesis and transient hematuria symptoms. Does not think she is drinking enough water. Waking up gasping for air. 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 Pleuritic right-sided chest pain. 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 Admission Exam Per Admitting Provider GENERAL: Slightly uncomfortable, anxious, no respiratory distress SKIN: Normal color, warm HEENT: [place] palpebral conjunctivae, no ptosis, dry buccal mucosa NECK : Supple, no tenderness CHEST : CTA, right chest wall tenderness HEART : Bradycardic, no obvious murmurs ABDOMEN: Some distention, nontender EXTREMITIES : No LE swelling/tenderness, no other conspicuous deformities noted NEUROLOGIC : Coherent, no facial asymmetry, no other gross focality Principal Dx & Hospital Course #1 = Principal Diagnosis (1) Acute hyponatremia: Plan Pt is a 53yoF with PMHx significant for paranoia, mood disorder, PTSD, pituitary adenoma as per records, history of multiple concussions, past tobacco/alcohol abuse presenting with hyponatremia, altered mental status and possible seizures. Hyponatremia- sodium of 120 on admission. Nephrology on board, concerned correcting too quickly. On D5w with DDVAP. Per nephrology goal is to try to correct Na about 10 in 24 hrs and 18 in 48 hrs. Bipolar, paranoia- psych consulted, appreciate recs. New seizures- brain MRI with no acute findings. neurology consulted, pending repeat EEG outpt, recommending not to start antiseizure meds at this time. Keppra discontinued. Seizure precautions, Ativan prn active seizures. Outpt neurology followup. DVT prophylaxis per Lovenox subcu Full code. Discharge Exam General: Alert, oriented. No acute distress Skin: No noted rashes or bruises Psych: Appropriate mood and affect Neuro: No gross deficits HEENT: NC/AT Chest: Nontender to palpation. CV: RRR, Normal s1, s2. No murmurs appreciated Resp: Breath sounds clear bilaterally, no increased effort of breathing. No crackles/rhonchi/rales. Abdomen: Soft, nontender, nondistended. Extremities: No edema in lower extremities bilaterally. Updated Medication List Medication Instructions Recorded Confirmed Type desvenlafaxine succinate 50 mg 0 mg PO QAM 05/07/23 05/07/23 History tablet,extended release 24 hr fluticasone propionate 50 0 spray intranasal QAM 05/07/23 05/07/23 History mcg/actuation nasal spray,suspension Hospital Stay Data Consultations 05/06/23 00:26 ED Decision to Admit Stat 05/06/23 03:52 Consult Psychiatry Routine 05/06/23 04:34 Consult Nephrology Routine Consult Neurology Routine Diagnostic Imagining Performed 05/06/23 01:16 CT Abd and Pelvis [CT abd pelvis IV con only] Stat CT angio chest PE protocol Stat CT head/brain wo con Stat 05/06/23 03:51 MRI Brain [MR brain seizure wo/w con] Stat Chest X-Ray 05/05/23 22:30 XR chest 1V not portable CLINICAL HISTORY: Chest pain, nonspecific COMPARISON STUDY: Chest December 06, 2018. FINDINGS: Lung volumes are normal. Lungs are clear. There is no pneumothorax or pleural effusion. Cardiac size is normal. Mediastinal contours are normal. There is no evidence for pulmonary edema. IMPRESSION: No acute cardiopulmonary findings. ACT 112: Negative or not required by law. Electronically signed by: Eben Rey M.D. 05/06/2023 7:57 AM Abdomen/Pelvis CT 05/06/23 01:16 Exam(s): CT ABDOMEN + PELVIS With Contrast IV Amt: 111 cc opti 350 EXAM: CT Abdomen and Pelvis With Intravenous Contrast CLINICAL HISTORY: Reason for exam: abd pain. TECHNIQUE: Axial computed tomography images of the abdomen and pelvis with intravenous contrast. CTDI is 9.46 mGy and DLP is 475.78 mGy-cm. Automated exposure control was utilized for the study. A dose lowering technique was utilized adhering to the principles of ALARA. CONTRAST: Patient received 111 cc opti 350 of IV contrast COMPARISON: No relevant prior studies available. FINDINGS: Lung bases: Unremarkable. No mass. No consolidation. ABDOMEN: Liver: Unremarkable. No mass. Gallbladder and bile ducts: Unremarkable. No calcified stones. No ductal dilation. Pancreas: Unremarkable. No mass. No ductal dilation. Spleen: Unremarkable. No splenomegaly. Adrenals: Unremarkable. No mass. Kidneys and ureters: Unremarkable. No solid mass. No hydronephrosis. Stomach and bowel: Mild wall thickening of small bowel, correlate for mild enteritis. Mild fecal retention. No obstruction. PELVIS: Appendix: No findings to suggest acute appendicitis. Bladder: Unremarkable. No mass. Reproductive: Unremarkable as visualized. ABDOMEN and PELVIS: Intraperitoneal space: Unremarkable. No free air. No significant fluid collection. 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 No acute fracture. No dislocation. Soft tissues: Unremarkable. Vasculature: Unremarkable. No abdominal aortic aneurysm. Lymph nodes: Unremarkable. No enlarged lymph nodes. IMPRESSION: Mild wall thickening of small bowel, correlate for mild enteritis. Electronically signed by: Kevin Hoang MD 05/06/23 03:34 AM Chest CTA 05/06/23 01:16 Exam(s): CTA CHEST IV Amt: 111 cc opti 350 EXAM: CT Angiography Chest With Intravenous Contrast CLINICAL HISTORY: Reason for exam: cp. TECHNIQUE: Axial computed tomographic angiography images of the chest with intravenous contrast. CTDI is 9.55 mGy and DLP is 298.8 mGy-cm. Automated exposure control was utilized for the study. A dose lowering technique was utilized adhering to the principles of ALARA. MIP reconstructed images were created and reviewed. COMPARISON: No relevant prior studies available. FINDINGS: Pulmonary arteries: Unremarkable. No pulmonary embolism. Aorta: No acute findings. No thoracic aortic aneurysm. Lungs: Unremarkable. No mass. No consolidation. Pleural space: Unremarkable. No significant effusion. No pneumothorax. Heart: Unremarkable. No cardiomegaly. No significant pericardial effusion. No evidence of RV dysfunction. Bones/joints: No acute fracture. No dislocation. Soft tissues: Unremarkable. Lymph nodes: Unremarkable. No enlarged lymph nodes. IMPRESSION: Normal chest CTA. No pulmonary embolism. Electronically signed by: Kevin Hoang MD 05/06/23 03:[address] 05/06/23 01:16 Exam(s): CT HEAD Without Contrast EXAM: CT Head Without Intravenous Contrast CLINICAL HISTORY: Reason for exam: ricks, sz. TECHNIQUE: Axial computed tomography images of the head/brain without intravenous contrast. CTDI is 37.78 mGy and DLP is 624.41 mGy-cm. Automated exposure control was utilized for the study. A dose lowering technique was utilized adhering to the principles of ALARA. COMPARISON: Comparison made to prior brain MRI from April 13, 2023. FINDINGS: Brain: Unremarkable. No hemorrhage. No significant white matter disease. No edema. Ventricles: Unremarkable. No ventriculomegaly. Bones/joints: Unremarkable. No acute fracture. Soft tissues: Unremarkable. Sinuses: Unremarkable as visualized. No acute sinusitis. Mastoid air cells: Unremarkable as visualized. No mastoid effusion. IMPRESSION: No evidence of acute intracranial pathology. Electronically signed by: Lara Lucas MD 05/06/23 03:13 AM Brain MRI 05/06/23 03:51 MRI OF THE BRAIN COMBO CLINICAL HISTORY: Seizure. COMPARISON STUDY: CT of the brain dated 05/06/2023. MRI of the brain dated 04/13/2023. TECHNIQUE: MRI of the brain was performed utilizing various T1 and T2-weighted sequences in the axial, sagittal, and coronal planes. Contrast-enhanced sequences were acquired following the administration of 5.5 cc of Gadavist. The examination is performed using the seizure protocol. The examination is modestly degraded by motion artifact. FINDINGS: Brain parenchyma: The brain parenchyma is normal in appearance. There is no hemorrhage or mass effect. There is no restricted diffusion to suggest acute ischemia. No enhancing mass lesion is identified on the postcontrast images. Farooq-white matter differentiation is preserved. No extra-axial fluid collection is seen. The cerebellar tonsils are normal in configuration. The hippocampi are normal and symmetric. Ventricles, sulci, and cisterns: Normal in configuration. Pituitary and sella: Unremarkable. Intracranial vasculature: Normal flow voids are maintained at the skull base. Orbits: The bony orbits are grossly intact. Orbital contents are normal in appearance. Sinuses and mastoids: There is an 11 mm retention cyst in the left maxillary sinus. The remaining paranasal sinuses and the mastoid air cells are clear. Calvarium: Unremarkable. Cervical cord: Partially visualized cervical spinal cord is normal in morphology and signal intensity. IMPRESSION: No acute intracranial abnormality. ACT 112: Negative or not required by law. Electronically signed by: Melvin Houston M.D. 05/06/2023 7:08 AM Discharge Instructions Given to Patient (Per Discharging Provider) Pt Eloped Total Time Total Time Spent Total Time Spent (In Minutes): > 30 minutes
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
--- NOTE | 2023-05-07 14:11 | Nephrology Progress Note ---
Date of Service May 07, 2023 Assessment & Plan Admission and Anticipated Discharge Date Admission Date: May 06, 2023 Subjective Please refer to the consult note from 05/06/2023. Assessment & Plan (1) Acute hyponatremia: na was 120 on Admission. last 2 Na+ outpt was 134 and then 132. Was drinking massive amount of water--all day non stop easily more than 20 glasses per day. Not eating much solid food because of Stress and ? nausea. NO Diarrhea. Not on any meds to cause Hyponatremia. cause of Hyponatremia is Combination of Some degree of urinary dilution problem combined with excessive fluid intake. with that much water intake and Serum na expected urine osm is lot lower. na was 129 before she went home. Now dropped again to 122 --Almost certainly she drank a lot of water after getting out of hospital. No need of anything. Not drinking crazy amount of water is enough to get the Na + up. No iv fluid. No meds Check BMP every 6 hrs. goal na around 130 by tomorrow S--She took out her iv lines and took Uber and went home on her own. Police got her back and now admitted as a 302 Physical Exam Physical Exam: GENERAL: anxious, no respiratory distress SKIN: Flushed face HEENT: [place] palpebral conjunctivae, no ptosis, dry buccal mucosa NECK : Supple, no tenderness CHEST : CTA, right chest wall tenderness HEART : RRR. NO murmur ADOMEN: Some distention, nontender EXTREMITIES : No LE swelling/tenderness NEUROLOGIC : Coherent, no facial asymmetry, Anxious Results & Data Vital Signs (Past 12 Hours) Vital Signs Temp Pulse Pulse Pulse Resp BP Pulse Ox 05/07/23 07:34 49 L 05/07/23 07:13 36.4 C L 56 L 16 114/71 98 05/07/23 03:39 36.4 C L 56 L 18 128/75 97 O2 Del Method 05/07/23 07:34 05/07/23 07:13 Room Air 05/07/23 03:39 Room Air
== END 2023-05-07 11:11 | disposition home or self-care (01) | DRG 641 ==
LOC: ED 22:23 → INTOOBSV 05-06 03:49 → EDINP 05-06 03:49 → 2W 05-06 04:34

== ENCOUNTER 2023-05-07 11:00 | Inpatient (IN) ==
--- NOTE | 2023-05-07 12:02 | Emergency Department Note ---
Impression & Plan Acute hyponatremia, Depression with suicidal ideation ED Provider Note NAME: MONICA ERWIN AGE: 53 SEX: F : 1970 ARRIVES VIA: Walk-In INFORMANT: Patient, [facility] Hospitalist ED PROVIDER(S): Evangelist Brown DO CHIEF COMPLAINT: Mental health evaluation HPI: The patient is a 53-year-old female who was admitted earlier this week for hyponatremia. The patient was brought to the emergency department by police. Apparently the patient eloped from the inpatient area where she was being treated for hyponatremia. The patient voiced suicidal ideation and this is why the 302 petition was undertaken. This was done by the [facility] group as well as our inpatient psychiatric team. They feel the patient is not able to make the decision of leaving on her own. She states that she has no suicidal ideation and does not know where this came from. Her morning labs today does show that her sodium is dropping. Patient denies having any lower extremity swelling or pain. She denies having any trauma. ROS: See above HPI for pertinent positives & negatives. A total of 10 systems reviewed and were otherwise negative. PAST MEDICAL HISTORY: See Below PAST SURGICAL HISTORY: See Below FAMILY HISTORY: See Below SOCIAL HISTORY: See Below HOME MEDICATIONS: See Below ALLERGIES: See Below VITALS: See Below PHYSICAL EXAMINATION: GENERAL: Patient is awake and alert. She is somewhat anxious appearing. EYES: The conjunctivae are clear. The pupils are round and reactive. EARS, NOSE, MOUTH AND THROAT: The nose is without any evidence of any deformity. NECK: The neck is nontender and supple. RESPIRATORY: Normal respiratory effort is noted there is no evidence of wheezing rhonchi or rales CARDIOVASCULAR: Regular rate and rhythm noted there no murmurs rubs or gallops normal S1 normal S2. GASTROINTESTINAL: The abdomen is soft. Abdomen is nontender. MUSCULOSKELETAL/EXTREMITIES: There is no evidence of gross deformity full range of motion is noted in the hips and shoulders. SKIN: There is no obvious evidence of any rash. There are no petechiae, pallor or cyanosis noted. NEUROLOGIC: Patient is awake alert and oriented x3 strength is symmetric patellar reflexes are 2+ bilaterally PSYCH: The patient's affect is flat. She makes good eye contact mostly evaluation. She is currently denying any suicidal homicidal ideation. MEDICAL DECISION MAKING: The patient is a 53-year-old female who presented to the emergency department for 302 evaluation. The patient was recently admitted to our facility for hyponatremia. She apparently voiced suicidal ideation. It is unclear if she was having depression with suicidal ideation or if this was a sequelae of the hyponatremia. She eloped from the inpatient status today. 302 petition was filled out and the patient was brought to the emergency department for further evaluation. The patient was medically cleared in the emergency department however she could not be completely medically cleared because of her continued hyponatremia. The 302 petition was upheld by myself I do feel the patient may require further inpatient treatment for this hyponatremia until she can be formally evaluated with clear sensorium. I discussed her condition with the on- call [facility] hospitalist group. They have agreed to evaluate the patient in the emergency department for further management and disposition. Triage Nursing notes reviewed. Prior medical records reviewed Vital Signs: reviewed and remarkable for no significant abnormalities Differential diagnosis: Mood disorder, infection, hypoglycemia, electrolyte abnormalities, cardiac sources, intracerebral event, toxicologic, trauma, neurologic, as well as other pathologies. ER treatment provided: See below Diagnostics interpreted by me: ECG:EKG was obtained in the emergency department. My interpretation is normal sinus rhythm at 67 bpm. There is no ectopy. There is no acute ST segment abnormalities noted. This was compared to a tracing from May 05, 2023. No changes were noted. Cardiac Monitoring: An order was placed for continuous cardiac monitoring. The monitor shows a rate of 82 bpm with sinus rhythm. Laboratory studies: As stated above and show below. Imaging studies: See below. Radiographic imaging was reviewed by myself Consultation(s): I discussed this case with Dr. Rice who is familiar with the patient. She will evaluate the patient in the emergency department. I discussed this case with the emergency department off case finisher. Past Med/Surg History Medical History Pelvic fracture Lumbar disc disease No chronic diseases present Surgical History Status post endovenous radiofrequency ablation (RFA) of saphenous vein Inguinal hernia No significant past surgical history Family History Mother Breast cancer Social History (Reviewed 05/07/23 @ 12:00 by ARLETH Leigh Smoking Status: Never smoker Hx Alcohol Use: No Hx Substance Use: No Preferred Language: Persian Communication Ability: Effective Clinical Documentation Manager Required: No Beliefs That Will Affect Care: None Feels Safe at Home: Yes Allergies Allergies Allergy/AdvReac Type Severity Reaction Status Date / Time peanut Allergy Severe edema Verified 05/06/23 00:17 latex Allergy Intermediate Rash Verified 05/06/23 00:17 wheat Allergy Intermediate CELIAC Verified 05/06/23 00:17 DISEASE escitalopram AdvReac Severe Seizure Verified 05/06/23 00:17 oxycodone AdvReac Severe Seizure Verified 05/06/23 00:17 acetaminophen AdvReac Intermediate Vomiting Verified 05/06/23 00:17 bupropion [From Wellbutrin] AdvReac Intermediate VISUAL Verified 05/06/23 00:17 DISTURBANCE Home Meds Home Medications Medication Instructions Recorded Confirmed desvenlafaxine succinate 50 mg 0 mg PO QAM 05/07/23 05/07/23 tablet,extended release 24 hr fluticasone propionate 50 0 spray intranasal QAM 05/07/23 05/07/23 mcg/actuation nasal spray,suspension Results & Data (ED) Vital Signs Vital Signs - 24 hr 05/07/23 11:10 05/07/23 12:02 05/07/23 12:31 Temperature 35.8 C L Temperature Source Temporal Artery Scan Pulse Rate 77 62 Pulse Rate [Apical] 59 L Respiratory Rate 20 16 Respiratory Effort / Characteristics Non-Labored Spontaneous Non-Labored Respiratory Depth Normal Normal Blood Pressure 117/88 Blood Pressure [Left Arm] 126/91 Blood Pressure Mean 97 Blood Pressure Mean [Left Arm] 102 Pulse Oximetry 98 100 Oxygen Delivery Method Room Air Room Air Sepsis New/Unexplained Change in Mental Status No Sepsis Action Taken by Nursing No Action Required Home Medications Current Medication List: was personally reviewed by me Laboratory Data Attestation: I reviewed the patient's lab results. 05/07/23 12:07 05/07/23 12:30 Lab Results 05/07/23 05/07/23 Range/Units 12:07 12:30 WBC 2.93 L (4.8-10.8) K/ul RBC 5.03 (4.20-5.40) M/uL Hgb 15.2 (12.0-16.0) g/dl Hct 43.4 (37.0-47.0) % MCV 86.3 (80.0-100.0) fL MCH 30.2 (25.0-34.0) pg MCHC 35.0 (32.0-36.0) g/dL RDW Std Deviation 40.2 (36.4-46.3) fL RDW Coeff of Emanuel 12.8 (11.5-14.5) % Plt Count 213 (130-400) K/uL MPV 9.5 (9.4-12.4) fL Immature Gran % (Auto) 0.0 % Neut % (Auto) 72.7 % Lymph % (Auto) 18.8 % Sw[place] % (Auto) 8.2 % Eos % (Auto) 0.0 % Baso % (Auto) 0.3 % Neut # (Auto) 2.13 (1.40-6.50) K/uL Lymph # (Auto) 0.55 L (1.20-3.40) K/uL Swisher # (Auto) 0.24 (0.11-0.59) K/uL Eos # (Auto) 0.00 (0.00-0.50) K/uL Baso # (Auto) 0.01 (0.00-0.20) K/uL Immature Gran # (Auto) 0.00 L (0.01-0.20) K/uL Sodium 123 L (136-145) mmol/L Potassium TNP 3.4 L Chloride 89 L (98-107) mmol/L Carbon Dioxide 26 (21-32) mmol/L Anion Gap 8 (3-11) BUN 8 (6-23) mg/dl Creatinine 0.71 (0.6-1.2) mg/dl Est Cr Clr Drug Dosing 79.1 ml/min Est GFR ( Amer) 112.7 ml/min Est GFR (Non-Af Amer) 97.2 ml/min BUN/Creatinine Ratio 11.3 (10-20) Glucose 107 H (70-99(Fasting)) mg/dl Osmolality 256 L (280-300) mOsm/kg Calcium 9.2 (8.6-10.3) mg/dl Total Bilirubin 1.4 H (0.2-1.0) mg/dl AST TNP ALT 19 (7-52) U/L Alkaline Phosphatase 70 (34-104) U/L Troponin I High Sens 4.2 D (0-14) pg/ml Total Protein 6.7 (6.0-8.3) gm/dl Albumin 4.4 (3.4-5.0) gm/dl Globulin 2.3 L (2.5-4.0) gm/dl Albumin/Globulin Ratio 1.9 (0.9-2) TSH 4.318 (0.300-4.500) uIu/ml Salicylates < 3.0 L (3.0-30) mg/dl Acetaminophen < 3 L (10-30) ug/ml Ethyl Alcohol mg/dL < 10.0 (<10.0) mg/dl Imaging Data Attestation: I personally reviewed and interpreted this imaging study as follows: My Impression: 1 view chest x-ray was obtained in the emergency department. My interpretation is no free air or definite infiltrate, final report below. Radiologist's Impression: Chest X-Ray 05/07/23 11:55 XR chest 1V portable HISTORY: Shortness of breath. COMPARISON: Chest CTA 05/06/2023. FINDINGS: The lungs are clear. Cardiac silhouette is normal in size. No pleural effusions. No pneumothorax. IMPRESSION: No acute process. ACT 112: Negative or not required by law. Electronically signed by: Harvinder Peace M.D. 05/07/2023 2:03 PM Discharge Plan Visit Data Chief Complaint: Mental Health Evaluation Stated Complaint: E ED Provider: Evangelist Brown Discharge Problem: Acute hyponatremia, Depression with suicidal ideation Patient Disposition: Being Evaluated by Hospitalist Forms Stand Alone Forms: My [facility], Suicide Prevention Resources Prescriptions Prescriptions: No Action fluticasone propionate 50 mcg/actuation spray,suspension 0 spray INTRANASAL QAM Rx Instructions: Unable to verify OTC meds with patient at this date/time. Original Directions: 2 sprays into the nostrils once every morning desvenlafaxine succinate 50 mg tablet extended release 24 hr 0 mg PO QAM Rx Instructions: Last filled 03/23/23 x30 day supply. Original Directions: 50mg by mouth every morning Referrals Referrals: Hernando Maki MD [Primary Care Provider] -
--- NOTE | 2023-05-07 12:08 | History & Physical Report ---
Date of Service May 07, 2023 Assessment & Plan (1) Depression with suicidal ideation: (2) Acute hyponatremia: (3) Psychogenic polydipsia: (4) Seizure-like activity: (5) Pituitary adenoma: Plan Pt is a 53yoF with PMHx significant for paranoia, mood disorder, PTSD, pituitar y adenoma as per records, history of multiple concussions, past tobacco/alcohol abuse presenting with hyponatremia and possible seizures. Pt was admitted but eloped on 05/07/23. Stated she called an uber and went home to take care of her dogs after a rough night on the hospital bed. She is currently being managed for the following: Hyponatremia, acute on chronic Polydipsia Sodium levels have ranged from 120-129 since her 05/04 admission. Downtrended once more this AM to 122. Pt with noted polydipsia Nephrology consulted, appreciate recs -was treated yesterday with desmopressin and D5w with concern that her sodium was correcting too quickly -sodium currently at 122, recommending no treatments at this time, anticipates improvement with pt simply not drinking as much as she had been at home Psychiatry consulted for polydipsia and other psychiatric dx- pt originally requested evaluation for bipolar treatment. Appreciate recs Chest Pain Pt reporting this in the ED and on arrival to the floor EKG with NSR, trop normal x2 Chest XR with no acute process PRN tylenol and Ativan Continue to monitor Passive suicidality hx paranoia/mood disorder/PTSD Bipolar disorder Elopement from hospital Patient notably anxious on exam with multiple somatic complaints on initial admission Patient not on maintenance medications currently, last trial of Pristiq last month Pt eloped on 05/07/23, reporting she went home to take care of her dogs after a rough night on the hospital bed. States she never expressed thoughts of hurting herself Brought back to the hospital on a 302 warrant by police Psychiatry consulted, appreciate recs PRN Ativan as above Holding home meds per psych one to one sitter Continue to monitor Possible seizure History multiple concussions Pt evaluated by Neurology during the prior admission on 05/05 Recent EEG Neurology recommending repeat EEG outpt, no need for Keppra/antiseizure meds. Outpatient Neurology follow up hx pituitary adenoma as per records Recent outpatient pituitary MRI negative for tumor Repeat head CT and brain MRI with no acute findings. CODE STATUS: full code DVT prophylaxis: Lovenox SQ Diet: Regular, safe tray, fluid restrict Dispo: Psych unit once medically stable Pt's brother called and updated on 05/06 at about 8:30-9:00PM. Had code word. History of Present Illness Chief Complaint: hyponatremia Primary Care Provider: Hernando Maki MD Pt is a 53yoF with PMHx significant for paranoia, mood disorder, PTSD, pituitary adenoma as per records, history of multiple concussions, past tobacco/alcohol abuse presenting with hyponatremia, and possible seizures. Pt was previously admitted on 05/04 but eloped on 05/07/23. Stated she called an uber and went home to take care of her dogs after a rough night on the hospital bed. She was brought back to the hospital on a 302 warrant by police. She states that she never said she is suicidal. Had previously requested to see psych for treatment of her bipolar disorder. No further seizurelike activity. Denies SI/HI at this time. Notes some chest pain that comes and goes. Per nursing, pt's brother calling for updates.. Pt agreeable to info being given to brother. Pt's brother called and updated on 05/06 at about 8:30-9:00PM. Had code word. Allergies Allergy/AdvReac Type Severity Reaction Status Date / Time peanut Allergy Severe edema Verified 05/06/23 00:17 latex Allergy Intermediate Rash Verified 05/06/23 00:17 wheat Allergy Intermediate CELIAC Verified 05/06/23 00:17 DISEASE escitalopram AdvReac Severe Seizure Verified 05/06/23 00:17 oxycodone AdvReac Severe Seizure Verified 05/06/23 00:17 acetaminophen AdvReac Intermediate Vomiting Verified 05/06/23 00:17 bupropion [From Wellbutrin] AdvReac Intermediate VISUAL Verified 05/06/23 00:17 DISTURBANCE Home Medications Medication Instructions Recorded Confirmed Type desvenlafaxine succinate 50 mg 0 mg PO QAM 05/07/23 05/07/23 History tablet,extended release 24 hr fluticasone propionate 50 0 spray intranasal QAM 05/07/23 05/07/23 History mcg/actuation nasal spray,suspension Past Med/Surg History Medical History Pelvic fracture Lumbar disc disease No chronic diseases present Surgical History Status post endovenous radiofrequency ablation (RFA) of saphenous vein Inguinal hernia No significant past surgical history Family History Mother Breast cancer Social History Smoking Status: Never smoker Hx Alcohol Use: No Hx Substance Use: No Preferred Language: Citizen Of [place] Communication Ability: Effective Municipal Court Judge Required: No Beliefs That Will Affect Care: None Feels Safe at Home: Yes Assistive Devices: None Review of Systems Review of Systems: All systems reviewed & are unremarkable except as noted in HPI & below Physical Exam Physical Exam: General: Alert, oriented. No acute distress Skin: No noted rashes or bruises Psych: euthymic mood and affect Neuro: No gross deficits HEENT: NC/AT, Chest: Nontender to palpation. CV: RRR, Normal s1, s2. No murmurs appreciated Resp: Breath sounds clear bilaterally, no increased effort of breathing. Abdomen: Soft, nontender, nondistended. Extremities: No edema in lower extremities bilaterally. Results & Data Results & Data Vital Signs (Past 12 Hours) Vital Signs Temp Pulse Resp BP Pulse Ox O2 Del Method 05/07/23 12:02 62 05/07/23 11:10 35.8 C L 77 20 117/88 98 Room Air Diagnostic Findings Chest X-Ray 05/07/23 11:55 XR chest 1V portable HISTORY: Shortness of breath. COMPARISON: Chest CTA 05/06/2023. FINDINGS: The lungs are clear. Cardiac silhouette is normal in size. No pleural effusions. No pneumothorax. IMPRESSION: No acute process. ACT 112: Negative or not required by law. Electronically signed by: Harvinder Peace M.D. 05/07/2023 2:03 PM
--- NOTE | 2023-05-07 12:12 | Electrocardiogram Report ---
Test Reason : Blood Pressure : / mmHG Vent. Rate : 067 BPM Atrial Rate : 067 BPM P-R Int : 186 ms QRS Dur : 086 ms QT Int : 424 ms P-R-T Axes : 081 074 071 degrees QTc Int : 448 ms Normal sinus rhythm with sinus arrhythmia Abnormal ECG When compared with ECG of 05-MAY-2023 22:46, [place] interval has decreased Confirmed by Chris Kay ([id number]) on 05/07/2023 12:12:32 PM Referred By: Confirmed By:Devon Kay
[2023-05-07 12:35] LABS: Basophils # (auto) 0.01 K/uL (0.00-0.20); Basophils % (auto) 0.3 %; Hematocrit (blood only) 43.4 % (37.0-47.0); Hemoglobin 15.2 g/dl (12.0-16.0); Lymphocytes # (auto) 0.55 K/uL (1.20-3.40); Lymphocytes % (auto) 18.8 %; Mean Corpuscular Hemoglobin 30.2 pg (25.0-34.0); Mean Corpuscular Volume 86.3 fL (80.0-100.0); Mean Platelet Volume 9.5 fL (9.4-12.4); Monocytes # (auto) 0.24 K/uL (0.11-0.59); Monocytes % (auto) 8.2 %; Neutrophils # (auto) 2.13 K/uL (1.40-6.50); Neutrophils % (auto) 72.7 %; Platelet Count 213 K/uL (130-400); RDW Coefficient of Variation 12.8 % (11.5-14.5); RDW Standard Deviation 40.2 fL (36.4-46.3); Red Blood Count 5.03 M/uL (4.20-5.40); White Blood Count 2.93 K/ul (4.8-10.8)
[2023-05-07 13:06] LABS: Alanine Aminotransferase 19 U/L (7-52); Albumin Globulin Ratio 1.9 (0.9-2); Albumin Level 4.4 gm/dl (3.4-5.0); Alkaline Phosphatase 70 U/L (34-104); Anion Gap 8 (3-11); BUN Creatinine Ratio 11.3 (10-20); Bilirubin,Total 1.4 mg/dl (0.2-1.0); Blood Urea Nitrogen 8 mg/dl (6-23); Calcium 9.2 mg/dl (8.6-10.3); Carbon Dioxide 26 mmol/L (21-32); Chloride 89 mmol/L (98-107); Creatinine Clr Calc Pharmacy 79.1 ml/min; Est GFR (African American) 112.7 ml/min; Est GFR (Non-African American) 97.2 ml/min; Globulin 2.3 gm/dl (2.5-4.0); Glucose 107 mg/dl (70-99(Fasting)); Sodium 123 mmol/L (136-145); Total Protein 6.7 gm/dl (6.0-8.3); Troponin I High Sensitivity 4.2 pg/ml (0-14)
[2023-05-07 13:10] LABS: Thyroid Stimulating Hormone 4.318 uIu/ml (0.300-4.500)
[2023-05-07 13:11] LABS: Acetaminophen < 3 ug/ml (10-30); Salicylate < 3.0 mg/dl (3.0-30)
--- NOTE | 2023-05-07 14:04 | XRay Report ---
XR chest 1V portable HISTORY: Shortness of breath. COMPARISON: Chest CTA 05/06/2023. FINDINGS: The lungs are clear. Cardiac silhouette is normal in size. No pleural effusions. No pneumot horax. IMPRESSION: No acute process. ACT 112: Negative or not required by law. Electronically signed by: Harvinder Peace M.D. 05/07/2023 2:03 PM
[2023-05-07 15:33] LABS: Appearance Urine Clear (Clear); Bilirubin Urine Negative (Negative); Blood Urine Negative (Negative); Color Urine Yellow; Glucose Urine UA Negative (Negative); Ketones Urine Trace (Negative); Leukocyte Esterase Urine Negative (Negative); Nitrite Urine Negative (Negative); Protein Urine Negative (Negative); Specific Gravity Urine 1.005 (1.000-1.030); Urobilinogen Urine Negative (Negative); pH Urine 7.5 (4.5-7.5)
[2023-05-07] MEDS ORDERED: ACETAMINOPHEN 500 MG TAB PO PRN (16:06)
[2023-05-07] MEDS ORDERED: LORazepam 0.5 MG in SYRINGE 0.25 ML IV PRN (16:06)
[2023-05-07] MEDS ORDERED: ONDANSETRON INJ 2 MG/ML 2 ML VIAL IV PRN (16:07)
[2023-05-07 16:12] LABS: Amphetamines+Metham, Urine Neg (Neg); Barbiturates, Urine Neg (Neg); Benzodiazepine, Urine Neg (Neg); Cocaine, Urine Neg (Neg); MDMA (Ecstacy), Urine Neg (Neg); Marijuana, Urine Neg (Neg); Methadone, Urine Neg (Neg); Opiate, Urine Neg (Neg); Phencyclidine, Urine Neg (Neg)
[2023-05-07] MEDS: POTASSIUM CHLORIDE CRTAB 20 MEQ TABCR PO STA (17:27)
[2023-05-07] MEDS: ENOXAPARIN INJ 40 MG/0.4 ML SYR SQ SCH (17:30)
[2023-05-07 18:35] LABS: BUN Creatinine Ratio 11.1 (10-20); Calcium 9.1 mg/dl (8.6-10.3); Est GFR (African American) 110.8 ml/min; Est GFR (Non-African American) 95.6 ml/min; Potassium 3.6 mmol/L (3.5-5.1)
[2023-05-07] MEDS: NITROGLYCERIN SL 0.4 MG/TAB TAB SL STA (22:45)
[2023-05-07 23:23] LABS: Troponin I High Sensitivity 6.6 pg/ml (0-14)
[2023-05-07 23:30] LABS: Partial Thromboplastin Ratio 1.2; Partial Thromboplastin Time 33 Seconds (21-31)
[2023-05-08] MEDS: guaiFENesin 600 MG TABCR PO SCH (02:42)
[2023-05-08] MEDS: SODIUM CHLORIDE 0.65% NA SOLN 45 ML (OCEAN) PRN (02:42)
[2023-05-08 05:10] LABS: Hemoglobin 14.1 g/dl (12.0-16.0); Mean Corpuscular Hemoglobin 30.7 pg (25.0-34.0); Mean Corpuscular Hgb Conc 36.2 g/dL (32.0-36.0); Mean Corpuscular Volume 84.8 fL (80.0-100.0); Mean Platelet Volume 9.4 fL (9.4-12.4); Platelet Count 178 K/uL (130-400); RDW Coefficient of Variation 12.7 % (11.5-14.5); RDW Standard Deviation 39.4 fL (36.4-46.3)
[2023-05-08 05:31] LABS: Albumin Globulin Ratio 1.8 (0.9-2); Albumin Level 3.8 gm/dl (3.4-5.0); BUN Creatinine Ratio 14.1 (10-20); Calcium 8.8 mg/dl (8.6-10.3); Est GFR (African American) 100.6 ml/min; Est GFR (Non-African American) 86.8 ml/min; Globulin 2.1 gm/dl (2.5-4.0); Magnesium 1.9 mg/dl (1.7-2.4); Phosphorus 3.1 mg/dl (2.5-4.9); Potassium 3.9 mmol/L (3.5-5.1); Total Protein 5.9 gm/dl (6.0-8.3)
[2023-05-08 05:45] LABS: Thyroid Stimulating Hormone 3.272 uIu/ml (0.300-4.500)
--- NOTE | 2023-05-08 08:03 | Hospitalist Progress Note ---
Date of Service May 08, 2023 Assessment & Plan (1) Depression with suicidal ideation: (2) Acute hyponatremia: (3) Psychogenic polydipsia: (4) Seizure-like activity: (5) Pituitary adenoma: Plan Pt is a 53yoF with PMHx significant for paranoia, mood disorder, PTSD, pituitar y adenoma as per records, history of multiple concussions, past tobacco/alcohol abuse presenting with hyponatremia and possible seizures. Pt was admitted but eloped on 05/07/23. Stated she called an uber and went home to take care of her dogs after a rough night on the hospital bed. She is currently being managed for the following: Hyponatremia, acute on chronic Polydipsia Sodium levels have ranged from 120-129 since her 05/04 admission. Downtrended once more this AM to 122. Pt with noted polydipsia Nephrology consulted, appreciate recs -was treated yesterday with desmopressin and D5w with concern that her sodium was correcting too quickly -sodium currently at 122, recommending no treatments at this time, anticipates improvement with pt simply not drinking as much as she had been at home Psychiatry consulted for polydipsia and other psychiatric dx- pt originally requested evaluation for bipolar treatment. Appreciate recs 05/07 nephro rec that since on discharge cannot control water intake, can start on low dose lasix to get rid of fluid she takes off Chest Pain Pt reporting this in the ED and on arrival to the floor EKG with NSR, trop normal x2 Chest XR with no acute process PRN tylenol and Ativan Continue to monitor Passive suicidality hx paranoia/mood disorder/PTSD Bipolar disorder Elopement from hospital Patient notably anxious on exam with multiple somatic complaints on initial admission Patient not on maintenance medications currently, last trial of Pristiq last month Pt eloped on 05/07/23, reporting she went home to take care of her dogs after a rough night on the hospital bed. States she never expressed thoughts of hurting herself Brought back to the hospital on a 302 warrant by police Psychiatry consulted, appreciate recs PRN Ativan as above Holding home meds per psych one to one sitter Continue to monitor Psych started on Haldol per psych Possible seizure History multiple concussions Pt evaluated by Neurology during the prior admission on 05/05 Recent EEG Neurology recommending repeat EEG outpt, no need for Keppra/antiseizure meds. Outpatient Neurology follow up hx pituitary adenoma as per records Recent outpatient pituitary MRI negative for tumor Repeat head CT and brain MRI with no acute findings. CODE STATUS: full code DVT prophylaxis: Lovenox SQ Diet: Regular, safe tray, fluid restrict Dispo: Psych unit once medically stable Pt's brother called and updated on 05/06 at about 8:30-9:00PM. Had code word. Admission and Anticipated Discharge Date Admission Date: May 07, 2023 Subjective Pt seen with sitter at bedside. Does not want to stay, states she wants to get out to see her mother on hospice. Stating once more she did not make suicidal statements. Per psyciatry start on Haldol Review of Systems Review of Systems: All systems reviewed & are unremarkable except as noted in Subjective Physical Exam Physical Exam: General: Alert, oriented. No acute distress Skin: No noted rashes or bruises Psych: euthymic mood and affect Neuro: No gross deficits HEENT: NC/AT, Chest: Nontender to palpation. CV: RRR, Normal s1, s2. No murmurs appreciated Resp: Breath sounds clear bilaterally, no increased effort of breathing. Abdomen: Soft, nontender, nondistended. Extremities: No edema in lower extremities bilaterally. Results & Data Results & Data Vital Signs (Past 12 Hours) Vital Signs Temp Pulse Pulse Resp BP Pulse Ox O2 Del Method 05/08/23 07:42 61 05/08/23 07:08 36.3 C L 58 L 17 141/86 H 96 Room Air 05/08/23 04:19 36.5 C 61 18 127/84 97 Room Air 05/07/23 23:00 62 05/07/23 23:00 36.6 C 64 18 116/70 95 Room Air 05/07/23 21:38 36.6 C 61 18 127/78 96 Room Air
--- NOTE | 2023-05-08 08:45 | Electrocardiogram Report ---
Test Reason : Blood Pressure : / mmHG Vent. Rate : 075 BPM Atrial Rate : 075 BPM P-R Int : 184 ms QRS Dur : 082 ms QT Int : 388 ms P-R-T Axes : 070 057 061 degrees QTc Int : 433 ms Normal sinus rhythm Normal ECG When compared with ECG of 07-MAY-2023 11:51, No significant change was found Confirmed by Charles Osorio ([id number]) on 05/08/2023 8:44:39 AM Referred By: REFERRED SELF Confirmed By:Charles Osorio
--- NOTE | 2023-05-08 13:29 | Nephrology Progress Note ---
Date of Service May 08, 2023 Assessment & Plan (1) Acute hyponatremia: Plan: Na was 120 on Admission. last 2 Na+ was 134 and then 132. Was drinking massive amount of water--all day non stop easily more than 20 glasses per day. Not eating much solid food because of Stress and ? nausea. NO Diarrhea. Not on any meds to cause Hyponatremia. cause of Hyponatremia is Combination of Some degree of urinary dilution problem combined with excessive fluid intake. with that much water intake and Serum na expected urine osm is lot lower. Na was 129 before she went home, dropped again to 122 --Almost certainly she drank a lot of water after getting out of hospital. No iv fluid. No meds, FR 1.5 LIT -If she is again adamant to leave, start on 20 mg furosemide daily.Explained in detail that her sodium is not safe to leave and she should be in the hospital until it is in the safe levels, She has agreed to stay -Goal na around 132 by tomorrow (2) Psychogenic polydipsia: Admission and Anticipated Discharge Date Admission Date: May 07, 2023 Subjective Very anxious , wants to leave to attend mother who " is dying" Review of Systems 2 Review of Systems: All systems reviewed & are unremarkable except as noted in HPI & below Physical Exam 2 Physical Exam: Physical Exam: GENERAL: anxious, no respiratory di stress SKIN: Flush ed face HEENT: Pi n[place] palpebral conju nctivae, no ptosis , dry buccal mucos a NECK : Supple, n o tenderness CHEST : CTA, right ches t wall tenderness HEART : RRR. NO mu rmur ADOMEN: Some distention, nonten ivonne EXTREMITIES : No LE swelling/ten derness NEUROLOGI C : Coherent, no f acial asymmetry, A nxious Results & Data Vital Signs (Past 12 Hours) Vital Signs Temp Pulse Pulse Resp BP Pulse Ox O2 Del Method 05/08/23 11:02 36.5 C 63 16 129/82 96 Room Air 05/08/23 07:42 61 05/08/23 07:08 36.3 C L 58 L 17 141/86 H 96 Room Air 05/08/23 04:19 36.5 C 61 18 127/84 97 Room Air Laboratory Results 05/08/23 04:45 05/08/23 04:45
[2023-05-08] MEDS: haloperidoL 1 MG TAB PO PRN (16:00)
[2023-05-08] MEDS: ENOXAPARIN INJ 40 MG/0.4 ML SYR SQ SCH (16:08)
--- NOTE | 2023-05-08 16:21 | Psychiatric Consultation ---
Date of Consultation May 08, 2023 Impression / Recommendations (1) Acute hyponatremia: (2) Psychogenic polydipsia: Plan I believe that this woman has a history of some pretty severe thought disorder or possibly bipolar disorder. She is now on an involuntary 302 and I think she needs more time to get evaluated. This hyponatremia, caused by her psychosis, could easily lead to her . She is trying very hard to look "normal." She is willing to start an antipsychotic to see if this might help with her water intake. We are going to initiate Haldol 5 mg nightly scheduled and 2 mg every 4 hours as needed for worsening anxiety/psychosis. I reviewed the uses, side effects, and time course and the patient gave informed consent. I also discussed this with the attending, Dr. Rice. We will continue to follow. Today I spent about 60 minutes on the case. This included meeting with the patient, discussing the case with the attending, reviewing the chart, orders, and documentation. Psych History Identifying Data Rachel is a 53-year-old female who is readmitted due to hyponatremia related to polydipsia. She had been seen for a psychiatric consultation yesterday by Dr. Torres, but then the patient eloped and so I am asked to see her again today. She is now on a involuntary 302. Chief Complaint "I was not feeling well." History of Present Illness Please refer to the psychiatric consultation from Dr. Torres from yesterday. The patient has a complex history of an eating disorder as a young adult with progression to some form of disorganized psychosis associated with periods of travel and recluse from family that might be related to bipolar disorder. Over the last 2 weeks, she had gotten worse based on collateral history from brother reported that she had made passive suicidal statements and appeared even to be catatonic at times. Excessive water drinking seem to driven by restrictive eating but also due to statements that she might have cancer or a brain tumor. There were some concerns about a pituitary adenoma at 1 time, but imaging done in the last couple of days show no evidence of that. Sodium became dangerously low when she was admitted around 122 yesterday morning and around 125 this morning. After being seen by Dr. Flowers yesterday, the patient eloped from the hospital and was found at home she was picked up by police and brought back into the emergency department and is now on an involuntary 302. She told staff yesterday that she had to go and take care of her dogs. This morning, however, she is telling staff that she needed to go spend time with her mother who is dying. She denies suicidal or homicidal thoughts. She says that the nursing staff have been pretty mean to her in the hospital. She also claims that she has not had a bowel movement in about 2 weeks. Allergies Allergy/AdvReac Type Severity Reaction Status Date / Time peanut Allergy Severe edema Verified 05/06/23 00:17 latex Allergy Intermediate Rash Verified 05/06/23 00:17 wheat Allergy Intermediate CELIAC Verified 05/06/23 00:17 DISEASE escitalopram AdvReac Severe Seizure Verified 05/06/23 00:17 oxycodone AdvReac Severe Seizure Verified 05/06/23 00:17 acetaminophen AdvReac Intermediate Vomiting Verified 05/06/23 00:17 bupropion [From Wellbutrin] AdvReac Intermediate VISUAL Verified 05/06/23 00:17 DISTURBANCE Home Medications Medication Instructions Recorded Confirmed Type desvenlafaxine succinate 50 mg 0 mg PO QAM 05/07/23 05/07/23 History tablet,extended release 24 hr fluticasone propionate 50 0 spray intranasal QAM 05/07/23 05/07/23 History mcg/actuation nasal spray,suspension Patient History Medical History Pelvic fracture Lumbar disc disease No chronic diseases present Surgical History Status post endovenous radiofrequency ablation (RFA) of saphenous vein Inguinal hernia No significant past surgical history Family History Mother Breast cancer Social History Smoking Status: Never smoker Hx Alcohol Use: No Hx Substance Use: No Preferred Language: [place] Communication Ability: Effective [employer] Required: No Beliefs That Will Affect Care: None Feels Safe at Home: Yes Assistive Devices: None Physical Exam Psychiatric: Patient was alert and oriented x 3. She was clean in hospital scrubs. Eye contact was good. Speech was normal. Mood was frustrated. Affect was slightly irritated. Thought process seemed like she was rationalizing and goal-directed only towards getting out of the hospital, not to get help. There was no evidence of any hallucinations, but I suspect that she is having delusions related to her water intake. She denied any suicidal or homicidal thoughts. Memory was good; she knew her date of , the president's name, and the capital of [place]. Concentration was good; she could spell the word world backwards easily. No abnormal movements were seen. I did not evaluate her gait. Insight and judgment are impaired. Vital Signs (Past 24 Hours): Last Vital Signs Temp 36.5 C 05/08/23 16:06 Pulse 80 05/08/23 16:06 Resp 16 05/08/23 16:06 BP 125/89 05/08/23 16:06 Pulse Ox 98 05/08/23 16:06 O2 Del Method Room Air 05/08/23 16:06 Results & Data (PSY) Laboratory Results Sodium this morning was 125. Medications Administered Enoxaparin Sodium (Enoxaparin Inj 40 Mg/0.4 Ml Syr) 40 mg SQ Q24H ANDRE Stop: 06/07/23 16:59 Last Admin: 05/08/23 16:08 Dose: 40 mg Documented By: [id number] Guaifenesin (Guaifenesin 600 Mg Tabcr) 600 mg PO Q12 ANDRE Stop: 06/07/23 01:39 Last Admin: 05/08/23 11:05 Dose: 600 mg Documented By: [id number] Admin: 05/08/23 02:42 Dose: 600 mg Documented By: ARIS Haloperidol (Haloperidol 1 Mg Tab) 2 mg PO Q4H PRN PRN Reason: anxiety/agitation/psychosis Stop: 06/07/23 13:48 Last Admin: 05/08/23 16:00 Dose: 2 mg Documented By: MAYDA Sodium Chloride (Sodium Chloride 0.65% Na Soln 45 Ml ([place])) 2 sprays NA TID PRN PRN Reason: Nasal Congestion Stop: 06/07/23 01:35 Last Admin: 05/08/23 02:42 Dose: 2 sprays Documented By: ARIS Coding Level of Care Code 99620 U Intl Hosp Care Lvl 2 Diagnoses Acute hyponatremia E87.1 Psychogenic polydipsia R63.1; F54
[2023-05-08] MEDS ORDERED: ENOXAPARIN INJ 30 MG/0.3 ML SYR SQ SCH (17:00)
[2023-05-08] MEDS: DOCUSATE SODIUM/SENNA 50/8.6MG TAB PO SCH (22:09)
[2023-05-08] MEDS: LACTULOSE SYRUP 20 GM/30 ML UDC PO SCH (22:09)
[2023-05-08] MEDS: haloperidoL 5 MG TAB PO SCH (22:43)
[2023-05-09 04:57] LABS: Hematocrit (blood only) 40.8 % (37.0-47.0); Hemoglobin 14.1 g/dl (12.0-16.0); Mean Corpuscular Hemoglobin 30.3 pg (25.0-34.0); Mean Corpuscular Hgb Conc 34.6 g/dL (32.0-36.0); Mean Corpuscular Volume 87.6 fL (80.0-100.0); Mean Platelet Volume 9.4 fL (9.4-12.4); Platelet Count 194 K/uL (130-400); RDW Coefficient of Variation 12.8 % (11.5-14.5); Red Blood Count 4.66 M/uL (4.20-5.40); White Blood Count 2.93 K/ul (4.8-10.8)
[2023-05-09 05:18] LABS: Albumin Globulin Ratio 1.9 (0.9-2); Albumin Level 3.8 gm/dl (3.4-5.0); BUN Creatinine Ratio 16.7 (10-20); Bilirubin,Total 0.8 mg/dl (0.2-1.0); Calcium 8.7 mg/dl (8.6-10.3); Est GFR (African American) 84.6 ml/min; Magnesium 2.1 mg/dl (1.7-2.4); Total Protein 5.8 gm/dl (6.0-8.3)
--- NOTE | 2023-05-09 12:27 | Nephrology Progress Note ---
Date of Service May 09, 2023 Assessment & Plan (1) Psychogenic polydipsia: Plan: Na was 120 on Admission. last 2 Na+ was 134 and then 132. Was drinking massive amount of water--all day non stop easily more than 20 glasses per day. Not eating much solid food because of Stress and ? nausea. NO Diarrhea. Not on any meds to cause Hyponatremia. cause of Hyponatremia is Combination of Some degree of urinary dilution problem combined with excessive fluid intake, with that much water intake and Serum na expected urine osm is lower. Na was 129 before she went home, dropped again to 122 --Almost certainly she drank a lot of water after getting out of hospital. No iv fluid., FR 1.5 LIT -If she is again adamant to leave, start on 20 mg furosemide daily.Explained in detail that her sodium is not safe to leave and she should be in the hospital until it is in the safe levels, She has agreed to stay - Sodium is improving , safe rate of rise. - DAILY bmp Admission and Anticipated Discharge Date Admission Date: May 07, 2023 Subjective Pt seen with sitter at bedside. Does not want to stay, states she wants to get out to see her mother on hospice.l Review of Systems 2 Review of Systems: All systems reviewed & are unremarkable except as noted in HPI & below Physical Exam 2 Physical Exam: Physical Exam: GENERAL: anxious, no respiratory di stress SKIN: Flush ed face HEENT: Pi nk palpebral conju nctivae, no ptosis , dry buccal mucos a NECK : Supple, n o tenderness CHEST : CTA, right ches t wall tenderness HEART : RRR. NO mu rmur ADOMEN: Some distention, nonten ivonne EXTREMITIES : No LE swelling/ten derness NEUROLOGI C : Coherent, no f acial asymmetry, A nxious Results & Data Vital Signs (Past 12 Hours) Vital Signs Temp Pulse Pulse Resp BP Pulse Ox O2 Del Method 05/09/23 11:18 36.5 C 83 16 104/74 98 Room Air 05/09/23 09:45 36.5 C 64 16 117/74 95 Room Air 05/09/23 07:31 53 L 05/09/23 04:30 36.5 C 62 18 121/84 97 Room Air Laboratory Results 05/09/23 04:23 05/09/23 04:23
--- NOTE | 2023-05-09 13:06 | Psychiatric Progress Note ---
Date of Service May 09, 2023 Impression / Recommendations Impression 04/10/23: Patient does seem to be improving with the Haldol. Sodium is improved but not good enough to discharge yet from the hospital. (1) Acute hyponatremia: (2) Psychogenic polydipsia: Plan I believe that this woman has a history of some pretty severe thought disorder or possibly bipolar disorder. She is now on an involuntary 302 and I think she needs more time to get evaluated. This hyponatremia, caused by her psychosis, could easily lead to her . She is trying very hard to look "normal." She is willing to start an antipsychotic to see if this might help with her water intake. We are going to initiate Haldol 5 mg nightly scheduled and 2 mg every 4 hours as needed for worsening anxiety/psychosis. I reviewed the uses, side effects, and time course and the patient gave informed consent. I also discussed this with the attending, Dr. Rice. We will continue to follow. 04/10/23: We will continue with the one-to-one for safety. I left the Haldol as it is and advised the patient to only use the as needed form if she really needs it. If the attending feels that she is medically stable tomorrow, we can move forward with the discharge and try to drop at 302. I want her to be able to see her mother is much as possible before she passes. I think we are quickly approaching a point where the patient no longer requires inpatient psychiatric care. Today I spent about 39 minutes on the case. This included meeting with the patient, meeting with brother, discussing the case with the attending, reviewing the chart, and documentation. Suicide Risk Level Suicide Risk Level: Low (q15 min observation checks) Interval History Identifying Information Rachel is a 53-year-old female who is readmitted due to hyponatremia related to polydipsia. She had been seen for a psychiatric consultation yesterday by Dr. Torres, but then the patient eloped and so I am asked to see her again today. She is now on a involuntary 302. Chief Complaint "I was not feeling well." Subjective Subjective Today I met with the patient, reviewed the chart, and discussed the case with the attending physician. I also spoke with the patient's brother who happened to be on the phone when I arrived to the patient's room. Patient is here due to polydipsia and subsequent hyponatremia. Yesterday, she was started on Haldol 5 mg at bedtime and she also has some 2 mg as needed doses available which she has been utilizing. Brother filled me in on the situation with he and his sisters mother. Apparently, she is actively dying of glioblastoma and is already lost her ability to speak. The patient seems to be doing okay on the unit and had just gotten out of the shower when I arrived. Sodium level was 128 this morning. When I met with the patient, she was in a pretty good mood but is hoping that she can get out of the hospital soon. She understands, however, why she needs to be here with low sodium. She is eating food. She has been communicating with family. She was able to get some sleep last night. She denies suicidal or homicidal thoughts. She said that she is tolerating the Haldol but it was making her a little bit woozy. She also talked about how she feels like a burden to her family. Physical Exam Psychiatric Patient was alert and cooperative. She was clean and well-groomed. Speech was normal. Eye contact was good. Mood was described as "good." Affect was definitely brighter and she seemed less frantic. Thought process was logical and more goal-directed. There was no evidence of any hallucinations or delusions. She denied suicidal or homicidal thoughts. Memory and concentration were good. No abnormal movements were seen. Gait was normal. Insight and judgment are improving. Vital Signs (Past 24 Hours) Last Vital Signs Temp 36.5 C 05/09/23 11:18 Pulse 83 05/09/23 11:18 Resp 16 05/09/23 11:18 BP 104/74 05/09/23 11:18 Pulse Ox 98 05/09/23 11:18 O2 Del Method Room Air 05/09/23 11:18 Results & Data ([facility]) Laboratory Results Laboratory Results - last 24 hr 05/09/23 04:23 WBC 2.93 L RBC 4.66 Hgb 14.1 Hct 40.8 MCV 87.6 MCH 30.3 MCHC 34.6 RDW Std Deviation 41.0 RDW Coeff of Emanuel 12.8 Plt Count 194 MPV 9.4 Sodium 128 L Potassium 4.0 Chloride 95 L Carbon Dioxide 28 Anion Gap 5 BUN 15 Creatinine 0.90 Est Cr Clr Drug Dosing 63.0 Est GFR ( Amer) 84.6 Est GFR (Non-Af Amer) 73.0 BUN/Creatinine Ratio 16.7 Glucose 80 Calcium 8.7 Phosphorus 3.0 Magnesium 2.1 Total Bilirubin 0.8 AST 20 ALT 18 Alkaline Phosphatase 65 Total Protein 5.8 L Albumin 3.8 Globulin 2.0 L Albumin/Globulin Ratio 1.9 Current Inpatient Medications Current Inpatient Medications: Current Inpatient Medications Acetaminophen (Acetaminophen 500 Mg Tab) 1,000 mg PO Q8H PRN PRN Reason: Pain or Fever Stop: 06/06/23 16:05 Enoxaparin Sodium (Enoxaparin Inj 40 Mg/0.4 Ml Syr) 40 mg SQ Q24H [facility] Stop: 06/07/23 16:59 Last Admin: 05/08/23 16:08 Dose: 40 mg Guaifenesin (Guaifenesin 600 Mg Tabcr) 600 mg PO Q12 [facility] Stop: 06/07/23 01:39 Last Admin: 05/09/23 09:38 Dose: 600 mg Haloperidol (Haloperidol 1 Mg Tab) 2 mg PO Q4H PRN PRN Reason: anxiety/agitation/psychosis Stop: 06/07/23 13:48 Last Admin: 05/09/23 09:43 Dose: 2 mg Haloperidol (Haloperidol 5 Mg Tab) 5 mg PO HS [facility] Stop: 06/07/23 20:59 Last Admin: 05/08/23 22:43 Dose: 5 mg Lorazepam 0.5 mg/ Syringe 0.5 mls @ 2 mls/min IV Q8H PRN PRN Reason: Anxiety/Agitation Stop: 06/06/23 16:05 Lactulose (Lactulose Syrup 20 Gm/30 Ml Udc) 20 gm PO BID [facility] Stop: 06/07/23 20:59 Last Admin: 05/09/23 09:38 Dose: 20 gm Ondansetron HCl (Ondansetron Inj 2 Mg/Ml 2 Ml Vial) 4 mg IV Q6H PRN PRN Reason: Nausea And Vomiting Stop: 06/06/23 16:06 Senna/Docusate Sodium (Docusate Sodium/Senna 50/8.6mg Tab) 1 tab PO BID [facility] Stop: 06/07/23 20:59 Last Admin: 05/09/23 09:38 Dose: 1 tab Sodium Chloride (Sodium Chloride 0.65% Na Soln 45 Ml ([place])) 2 sprays NA TID PRN PRN Reason: Nasal Congestion Stop: 06/07/23 01:35 Last Admin: 05/08/23 22:11 Dose: 2 sprays
--- NOTE | 2023-05-09 16:05 | Hospitalist Progress Note ---
Date of Service May 09, 2023 Assessment & Plan (1) Depression with suicidal ideation: (2) Acute hyponatremia: (3) Psychogenic polydipsia: (4) Seizure-like activity: (5) Pituitary adenoma: Plan Pt is a 53yoF with PMHx significant for paranoia, mood disorder, PTSD, pituitar y adenoma as per records, history of multiple concussions, past tobacco/alcohol abuse presenting with hyponatremia and possible seizures. Pt was admitted but eloped on 05/07/23. Stated she called an uber and went home to take care of her dogs after a rough night on the hospital bed. She is currently being managed for the following: Hyponatremia, acute on chronic Polydipsia Sodium levels have ranged from 120-129 since her 05/04 admission. Downtrended once more this AM to 122. Pt with noted polydipsia Nephrology consulted, appreciate recs -was treated yesterday with desmopressin and D5w with concern that her sodium was correcting too quickly -sodium currently at 122, recommending no treatments at this time, anticipates improvement with pt simply not drinking as much as she had been at home Psychiatry consulted for polydipsia and other psychiatric dx- pt originally requested evaluation for bipolar treatment. Appreciate recs 05/07 nephro rec that since on discharge cannot control water intake, can start on low dose lasix to get rid of fluid 05/08- sodium improving Chest Pain Pt reporting this in the ED and on arrival to the floor EKG with NSR, trop normal x2 Chest XR with no acute process PRN tylenol and Ativan Continue to monitor Passive suicidality hx paranoia/mood disorder/PTSD Bipolar disorder Elopement from hospital Patient notably anxious on exam with multiple somatic complaints on initial admission Patient not on maintenance medications currently, last trial of Pristiq last month Pt eloped on 05/07/23, reporting she went home to take care of her dogs after a rough night on the hospital bed. States she never expressed thoughts of hurting herself Brought back to the hospital on a 302 warrant by police Psychiatry consulted, appreciate recs PRN Ativan as above Holding home meds per psych one to one sitter Continue to monitor Psych started on Haldol Possible seizure History multiple concussions Pt evaluated by Neurology during the prior admission on 05/05 Recent EEG Neurology recommending repeat EEG outpt, no need for Keppra/antiseizure meds. Outpatient Neurology follow up hx pituitary adenoma as per records Recent outpatient pituitary MRI negative for tumor Repeat head CT and brain MRI with no acute findings. CODE STATUS: full code DVT prophylaxis: Lovenox SQ Diet: Regular, safe tray, fluid restrict Dispo: Psych unit once medically stable Pt's brother called and updated on 05/06 at about 8:30-9:00PM. Had code word. Admission and Anticipated Discharge Date Admission Date: May 07, 2023 Subjective Pt seen with sitter at bedside. Asking about going home. Denied acute concerns. Case discussed with psych- considering discharge tomorrow, now that sodium improving/ Review of Systems Review of Systems: All systems reviewed & are unremarkable except as noted in Subjective Physical Exam Physical Exam: General: Alert, oriented. No acute distress Skin: No noted rashes or bruises Psych: euthymic mood and affect Neuro: No gross deficits HEENT: NC/AT, Chest: Nontender to palpation. CV: RRR, Normal s1, s2. No murmurs appreciated Resp: Breath sounds clear bilaterally, no increased effort of breathing. Abdomen: Soft, nontender, nondistended. Extremities: No edema in lower extremities bilaterally. Results & Data Results & Data Vital Signs (Past 12 Hours) Vital Signs Temp Pulse Pulse Resp BP Pulse Ox O2 Del Method 05/09/23 15:44 73 05/09/23 11:18 36.5 C 83 16 104/74 98 Room Air 05/09/23 09:45 36.5 C 64 16 117/74 95 Room Air 05/09/23 07:31 53 L 05/09/23 04:30 36.5 C 62 18 121/84 97 Room Air
[2023-05-10 06:07] LABS: Hematocrit (blood only) 39.3 % (37.0-47.0); Hemoglobin 13.6 g/dl (12.0-16.0); Mean Corpuscular Hemoglobin 30.2 pg (25.0-34.0); Mean Corpuscular Hgb Conc 34.6 g/dL (32.0-36.0); Mean Corpuscular Volume 87.3 fL (80.0-100.0); Mean Platelet Volume 9.4 fL (9.4-12.4); Platelet Count 200 K/uL (130-400); RDW Coefficient of Variation 12.9 % (11.5-14.5); RDW Standard Deviation 41.8 fL (36.4-46.3)
[2023-05-10 06:26] LABS: Albumin Globulin Ratio 1.9 (0.9-2); Albumin Level 3.7 gm/dl (3.4-5.0); BUN Creatinine Ratio 19.8 (10-20); Bilirubin,Total 0.7 mg/dl (0.2-1.0); Calcium 8.7 mg/dl (8.6-10.3); Creatinine Clr Calc Pharmacy 69.7 ml/min; Est GFR (African American) 96.1 ml/min; Est GFR (Non-African American) 82.9 ml/min; Magnesium 2.1 mg/dl (1.7-2.4); Phosphorus 2.9 mg/dl (2.5-4.9); Potassium 3.6 mmol/L (3.5-5.1); Total Protein 5.7 gm/dl (6.0-8.3)
--- NOTE | 2023-05-10 12:30 | Nephrology Progress Note ---
Date of Service May 10, 2023 Assessment & Plan (1) Psychogenic polydipsia: Plan: Na was 120 on Admission. last 2 Na+ was 134 and then 132. Was drinking massive amount of water--all day non stop easily more than 20 glasses per day. Not eating much solid food because of Stress and ? nausea. NO Diarrhea. Not on any meds to cause Hyponatremia. cause of Hyponatremia is Combination of Some degree of urinary dilution problem combined with excessive fluid intake, with that much water intake and Serum na expected urine osm is lower. Na was 129 before she went home, dropped again to 122 w/ urine osm 144 --she drank a lot of water after getting out of hospital. appropriate correction up to 130 today at appropriate rate >> however on recheck sNa down to 128 this PM >cont 1.5 L FR now and at d/c >pls get an educator to teach her how to do FR above >start K 10 mEq bid >given course she's had would prefer if possible to see stable sodium tomorrow before d/c or at least later today >will need close OP f/u >> hospital d/c appt w/ Dr Odom in 1-2 wks w/ bmp, urine and serum osms, rd urine electrolytes all ordered by neph nurse and checked 3 days before appt >>recommend PCP f/u w/ BMP q mon/thurs until neph HD appt - DAILY bmp NEPHRO d/c recs Ideally she would stay until sodium levels stable, not dropping, and > 130 consistently But w/ her mother being so ill it is not an easy choice; ok with discharge if pt insists but also high risk of repeat admission w/o close f/u >ensure psych f/u and close in PCP f/u >1.5L FR at d/c >continue K 10 mEq bid at d/c and encourage high K diet (pls give teaching) > cannot fix sodium as well w/o K normalizing -protein shakes do not count toward fluid limit >recommend BMP TOMORROW w/ urine and serum osms, mag, phos, and random urine electrolytes as well as every Mon /thurs until sees Dr Odom or myself in f/u; renal nurse has been updated and will order labs >>pls have d/c cyber intel planner arrange hospital d/c appt w/ Dr Odom or hailey in [facility] in 1-2 wks care coordinated 3 times today w/ Dr Rice regarding next steps, d/c plan, pt safety, medications; we are in agreement Admission and Anticipated Discharge Date Admission Date: May 07, 2023 Subjective no acute interval events. pt very anxious for d/c to be w/ her mom who is dying. psych has cleared for d/c. fluid limit reviewed. pt denies sob, n/v, edema, confusion, ambulatory concerns. Review of Systems 2 Review of Systems: All systems reviewed & are unremarkable except as noted in Subjective Physical Exam 2 Constitutional: well developed, + thin, + behavioral limitations (restless in chair, moves things about on tray often) and cooperative; no acute distress Eyes: EOM intact bilaterally ENMT: Ears: no external ear abnormality Nose: no external nose abnormality Mouth: + dry oral mucous membranes Neck: no nuchal rigidity Respiratory: normal respiratory effort Auscultation: + diminished lung sounds Gastrointestinal (Abdomen): Inspection/Auscultation: normal bowel sounds P ercussion/Palpation: abdomen soft; abdomen nontender Musculoskeletal: Extremities: strength 5/5 throughout Skin: no rashes, warm and dry Neurologic: berman, fluent speech, no tremor Psychiatric: Orientation: alert and oriented x 3 Speech: normal rate/rhythm/volume of speech Affect: + anxious affect Results & Data Vital Signs (Past 12 Hours) Vital Signs Temp Pulse Pulse Resp BP Pulse Ox O2 Del Method 05/10/23 07:00 36.8 C 59 L 16 124/82 96 Room Air 05/10/23 06:01 63 05/10/23 04:15 36.5 C 62 18 124/80 97 Room Air 05/10/23 01:35 59 L Laboratory Results 05/10/23 05:09 05/10/23 05:09
[2023-05-10] MEDS: POTASSIUM CHLORIDE 10 MEQ TABCR PO SCH (12:43)
--- NOTE | 2023-05-10 13:30 | Psychiatric Progress Note ---
Date of Service May 10, 2023 Impression / Recommendations Impression 04/11/23: Patient is demonstrating better insight and is goal-directed. There does not seem to be any evidence of psychosis at this time. She is also not a danger to herself or others. (1) Acute hyponatremia: (2) Psychogenic polydipsia: Plan I believe that this woman has a history of some pretty severe thought disorder or possibly bipolar disorder. She is now on an involuntary 302 and I think she needs more time to get evaluated. This hyponatremia, caused by her psychosis, could easily lead to her . She is trying very hard to look "normal." She is willing to start an antipsychotic to see if this might help with her water intake. We are going to initiate Haldol 5 mg nightly scheduled and 2 mg every 4 hours as needed for worsening anxiety/psychosis. I reviewed the uses, side effects, and time course and the patient gave informed consent. I also discussed this with the attending, Dr. Rice. We will continue to follow. 04/11/23: At this point, I do not feel the patient justifies a 302. No longer requires inpatient psychiatric hospitalization and seems to be doing much better. Once the attending physician feels that she is medically stable, ready for discharge back home. We will continue the haloperidol 5 mg p.o. nightly. She will need outpatient psychiatric care and individual therapy. Our psychiatric liaison nurse will help with that. 04/10/23: We will continue with the one-to-one for safety. I left the Haldol as it is and advised the patient to only use the as needed form if she really needs it. If the attending feels that she is medically stable tomorrow, we can move forward with the discharge and try to drop at 302. I want her to be able to see her mother is much as possible before she passes. I think we are quickly approaching a point where the patient no longer requires inpatient psychiatric care. Today I spent about 40 minutes on the case. This included meeting with the patient, discussing the case with the psychiatric nurse liaison, discussing the case with the attending, reviewing the chart, and documentation. Suicide Risk Level Suicide Risk Level Comments: At this point, I do not feel the patient is in acute danger to herself or others. Interval History Identifying Information Rachel is a 53-year-old female who is readmitted due to hyponatremia related to polydipsia. She had been seen for a psychiatric consultation yesterday by Dr. Torres, but then the patient eloped and so I am asked to see her again today. She is now on a involuntary 302. Chief Complaint "I was not feeling well." Subjective Subjective Today I met with the patient, reviewed the chart, and discussed the case with the attending physician. Patient has done pretty well over the last 24 hours. Her sodium is 130 this morning. She finally had a bowel movement. She continues to take the haloperidol scheduled and is tolerating it well. She has been continuing to communicate with her family. She is eager to go home so she can spend her mothers last days with her. She is denying any suicidal or homicidal thoughts. She understands the problems associated with polydipsia and how it can affect her sodium and her health. She also understands how important it is to drink fluids. Physical Exam Psychiatric Patient was alert and cooperative. She was clean but disheveled because I just awakened her from sleep. Speech was normal. Eye contact was good. Mood was described as "good." Affect was definitely bright. Thought process was logical and goal-directed. There was no evidence of any hallucinations or delusions. She denied suicidal or homicidal thoughts. Memory and concentration were good. No abnormal movements were seen. Gait was normal. Insight and judgment are improving. Vital Signs (Past 24 Hours) Last Vital Signs Temp 36.8 C 05/10/23 07:00 Pulse 59 L 05/10/23 07:00 Resp 16 05/10/23 07:00 BP 124/82 05/10/23 07:00 Pulse Ox 96 05/10/23 07:00 O2 Del Method Room Air 05/10/23 07:00 Results & Data ([facility]) Laboratory Results Laboratory Results - last 24 hr 05/10/23 05:09 WBC 2.20 L RBC 4.50 Hgb 13.6 Hct 39.3 MCV 87.3 MCH 30.2 MCHC 34.6 RDW Std Deviation 41.8 RDW Coeff of Emanuel 12.9 Plt Count 200 MPV 9.4 Sodium 130 L Potassium 3.6 Chloride 97 L Carbon Dioxide 28 Anion Gap 5 BUN 16 Creatinine 0.81 Est Cr Clr Drug Dosing 69.7 Est GFR ( Amer) 96.1 Est GFR (Non-Af Amer) 82.9 BUN/Creatinine Ratio 19.8 Glucose 92 Calcium 8.7 Phosphorus 2.9 Magnesium 2.1 Total Bilirubin 0.7 AST 18 ALT 17 Alkaline Phosphatase 61 Total Protein 5.7 L Albumin 3.7 Globulin 2.0 L Albumin/Globulin Ratio 1.9 Current Inpatient Medications Current Inpatient Medications: Current Inpatient Medications Acetaminophen (Acetaminophen 500 Mg Tab) 1,000 mg PO Q8H PRN PRN Reason: Pain or Fever Stop: 06/06/23 16:05 Enoxaparin Sodium (Enoxaparin Inj 40 Mg/0.4 Ml Syr) 40 mg SQ Q24H [facility] Stop: 06/07/23 16:59 Last Admin: 05/09/23 19:44 Dose: Not Given Guaifenesin (Guaifenesin 600 Mg Tabcr) 600 mg PO Q12 [facility] Stop: 06/07/23 01:39 Last Admin: 05/10/23 08:01 Dose: 600 mg Haloperidol (Haloperidol 1 Mg Tab) 2 mg PO Q4H PRN PRN Reason: anxiety/agitation/psychosis Stop: 06/07/23 13:48 Last Admin: 05/09/23 09:43 Dose: 2 mg Haloperidol (Haloperidol 5 Mg Tab) 5 mg PO HS [facility] Stop: 06/07/23 20:59 Last Admin: 05/09/23 19:49 Dose: 5 mg Lorazepam 0.5 mg/ Syringe 0.5 mls @ 2 mls/min IV Q8H PRN PRN Reason: Anxiety/Agitation Stop: 06/06/23 16:05 Lactulose (Lactulose Syrup 20 Gm/30 Ml Udc) 20 gm PO BID [facility] Stop: 06/07/23 20:59 Last Admin: 05/10/23 08:01 Dose: 20 gm Ondansetron HCl (Ondansetron Inj 2 Mg/Ml 2 Ml Vial) 4 mg IV Q6H PRN PRN Reason: Nausea And Vomiting Stop: 06/06/23 16:06 Potassium Chloride (Potassium Chloride 10 Meq Tabcr) 10 meq PO BID [facility] Stop: 06/09/23 12:29 Last Admin: 05/10/23 12:43 Dose: 10 meq Senna/Docusate Sodium (Docusate Sodium/Senna 50/8.6mg Tab) 1 tab PO BID [facility] Stop: 06/07/23 20:59 Last Admin: 05/10/23 08:01 Dose: 1 tab Sodium Chloride (Sodium Chloride 0.65% Na Soln 45 Ml ([place])) 2 sprays NA TID PRN PRN Reason: Nasal Congestion Stop: 06/07/23 01:35 Last Admin: 05/08/23 22:11 Dose: 2 sprays
[2023-05-10 14:38] LABS: BUN Creatinine Ratio 17.6 (10-20); Calcium 8.9 mg/dl (8.6-10.3); Creatinine Clr Calc Pharmacy 61.6 ml/min; Est GFR (African American) 83.5 ml/min; Potassium 3.9 mmol/L (3.5-5.1)
--- NOTE | 2023-05-10 15:31 | Discharge Summary ---
Discharge Summary Date of Service May 10, 2023 Notes For Next Care Provider Please ensure follow up with Psychiatry for psychogenic polydipsia- Psych noting pt stable for discharge and cannot be held on 302 anymore. Please ensure close followup with Nephrology. Per Nephrology: -1.5L fluid restriction -KCl 10mEQ BID -protein shakes that do not count towards the fluid restriction -encourage high potassium diet -BMP tomorrow 05/11/23 with urine osm, mag and phos -Repeat 2 days later, then every Wed and after that -Nephrology follow up in 1-2 weeks. Medication Changes From Visit Haldol 5mg po qhs KCl 10mEq BID Admission HPI Per Admitting Provider Pt is a 53yoF with PMHx significant for paranoia, mood disorder, PTSD, pituitary adenoma as per records, history of multiple concussions, past tobacco/alcohol abuse presenting with hyponatremia, and possible seizures. Pt was previously admitted on 05/04 but eloped on 05/07/23. Stated she called an uber and went home to take care of her dogs after a rough night on the hospital bed. She was brought back to the hospital on a 302 warrant by police. She states that she never said she is suicidal. Had previously requested to see psych for treatment of her bipolar disorder. No further seizurelike activity. Denies SI/HI at this time. Notes some chest pain that comes and goes. Per nursing, pt's brother calling for updates.. Pt agreeable to info being given to brother. Pt's brother called and updated on 05/06 at about 8:30-9:00PM. Had code word. Admission Exam Per Admitting Provider General: Alert, oriented. No acute distress Skin: No noted rashes or bruises Psych: euthymic mood and affect Neuro: No gross deficits HEENT: NC/AT, Chest: Nontender to palpation. CV: RRR, Normal s1, s2. No murmurs appreciated Resp: Breath sounds clear bilaterally, no increased effort of breathing. Abdomen: Soft, nontender, nondistended. Extremities: No edema in lower extremities bilaterally. Principal Dx & Hospital Course #1 = Principal Diagnosis (1) Depression with suicidal ideation: (2) Acute hyponatremia: (3) Psychogenic polydipsia: (4) Seizure-like activity: (5) Pituitary adenoma: Plan Pt is a 53yoF with PMHx significant for paranoia, mood disorder, PTSD, pituitary adenoma as per records, history of multiple concussions, past tobacco/alcohol abuse presenting with hyponatremia and possible seizures. Pt was previously admitted but eloped on 05/07/23. Stated she called an uber and went home to take care of her dogs after a rough night on the hospital bed. She is currently being managed for the following: Hyponatremia, acute on chronic Polydipsia Sodium levels have ranged from 120-130 since her 05/04 admission. Pt with noted polydipsia Nephrology consulted, appreciate recs -was treated during prior admission with desmopressin and D5w with concern that her sodium was correcting too quickly -sodium currently at 129, pt treated mainly with fluid restriction -Per Nephrology the following recommendations are for discharge: --1.5L fluid restriction -KCl 10mEQ BID -protein shakes that do not count towards the fluid restriction -encourage high potassium diet -BMP tomorrow 05/11/23 with urine osm, mag and phos -Repeat 2 days later, then every Wed and after that -Nephrology follow up in 1-2 weeks. Psychiatry consulted for polydipsia and other psychiatric dx, pt was agreeable to treatment with Haldol with which she was discharged. Her brother who had her code word, was contacted on the day of discharge and updated. Close Nephrology and PCP followup after discharge Close Psychiatry follow up after discharge Chest Pain Pt reporting this in the ED and on arrival to the floor EKG with NSR, trop normal x2 Chest XR with no acute process PRN tylenol and Ativan Continue to monitor Passive suicidality hx paranoia/mood disorder/PTSD Bipolar disorder Psychogenic Polydipsia Elopement from hospital Patient notably anxious on exam with multiple somatic complaints on initial admission Patient not on maintenance medications currently, last trial of Pristiq last month Pt eloped on 05/07/23, reporting she went home to take care of her dogs after a rough night on the hospital bed. States she never expressed thoughts of hurting herself Brought back to the hospital on a 302 warrant by police Psychiatry consulted, appreciate recs -stated that pt was making appropriate progress and wanted to go home to see her dying parent (verified with pt's brother) -pt was discharged with Haldol 5mg po qhs to which pt was agreeable and tolerated well. Held other home meds per psych Had a one to one sitter given previous elopement Close psychiatry follow up after discharge. Possible seizure History multiple concussions Pt evaluated by Neurology during the prior admission on 05/05 Possibly occurrred in setting of very low sodium levels Recent EEG in the outpatient setting Neurology recommending repeat EEG outpt, no need for Keppra/antiseizure meds. Outpatient Neurology follow up rec hx pituitary adenoma as per records Recent outpatient pituitary MRI negative for tumor Repeat head CT and brain MRI with no acute findings. Discharge Exam General: Alert, oriented. No acute distress Skin: No noted rashes or bruises Psych: euthymic mood and affect Neuro: No gross deficits HEENT: NC/AT, Chest: Nontender to palpation. CV: RRR, Normal s1, s2. No murmurs appreciated Resp: Breath sounds clear bilaterally, no increased effort of breathing. Abdomen: Soft, nontender, nondistended. Extremities: No edema in lower extremities bilaterally. Updated Medication List Medication Instructions Recorded Confirmed Type fluticasone propionate 50 0 spray intranasal QAM 05/07/23 05/07/23 History mcg/actuation nasal spray,suspension haloperidol 5 mg tablet 5 mg PO HS #30 tabs 05/10/23 Rx potassium chloride 10 mEq 10 meq PO BID #60 tabs 05/10/23 Rx tablet,extended release(part/cryst) Hospital Stay Data Consultations 05/07/23 12:02 ED Decision to Admit Stat 05/07/23 12:08 Consult Nephrology Routine Consult Psychiatry Routine Diagnostic Imagining Performed Chest X-Ray 05/07/23 11:55 XR chest 1V portable HISTORY: Shortness of breath. COMPARISON: Chest CTA 05/06/2023. FINDINGS: The lungs are clear. Cardiac silhouette is normal in size. No pleural effusions. No pneumothorax. IMPRESSION: No acute process. ACT 112: Negative or not required by law. Electronically signed by: Harvinder Peace M.D. 05/07/2023 2:03 PM Discharge Instructions Given to Patient (Per Discharging Provider) Rachel, You were admitted with a very low sodium level in the setting of drinking too much water. We still do not believe that you sodium level is where it needs to be for discharge but you are anxious to leave. We understand that your mother is dying and you would like to see her. You were seen by the field professional and we are recommending that since you are leaving that you keep VERY CLOSE follow up with your primary care provider and nephrology as scheduled after discharge. They would like you to STOP DRINKING so much water, 1500ml is the max you should drink in a day. Take your potassium supplements and try to eat a high protein diet and shakes. The protein shakes do not count towards your fluid limit. Please have blood work repeated tomorrow and then every Wednesday and after that. Please keep follow up with Nephrology in 1-2 weeks. Please keep follow up with your psychiatrist as well after discharge. They recommend that you take the Haldol as prescribed. Please keep close follow up with your primary care provider after discharge. Please do not hesitate to come back to the emergency room if your symptoms worsen or return. It was a pleasure taking care of you while you were here. Total Time Total Time Spent Total Time Spent (In Minutes): > 30 minutes
== END 2023-05-10 19:10 | disposition home or self-care (01) | DRG 641 ==
LOC: ED 11:00 → 2W 12:06
DX: Z91.018 Allergy to other foods; Z91.040 Latex allergy status; R29.818 Other symptoms and signs involving the nervous system; R45.851 Suicidal ideations; Z91.010 Allergy to peanuts; Z88.5 Allergy status to narcotic agent; R07.9 Chest pain, unspecified; Z88.6 Allergy status to analgesic agent; F54 Psychological and behavioral factors associated with disorders or diseases classified elsewhere; E87.1 Hypo-osmolality and hyponatremia; Z88.8 Allergy status to other drugs, medicaments and biological substances; F32.A Depression, unspecified; R63.1 Polydipsia

== ENCOUNTER 2023-06-13 18:08 | Observation (INO) ==
--- OUTSIDE RECORDS SUMMARY | 2023-06-13 18:13 | External Medical Summary ---
Author Name Unknown Address Unknown Organization [id number]:[facility] [address] [place] [address] Laboratory Report Ordering Provider Test Date Status ABY LUNDBERG 06/11/2023 10:48:46 Final Observation Date Value Abnormality Reference (Units ) Status Phosphate 06/11/2023 10:48:46 3.7 2.5-4.8 (m g/dL) Final Performing Location [facility] - [address] [place] [address]
--- OUTSIDE RECORDS SUMMARY | 2023-06-13 18:13 | External Medical Summary ---
Author Name Unknown Address Unknown Organization [id number]:[facility] - [address] [place] [address] Laboratory Report Ordering Provider Test Date Status JOSE ANTONIO LUNDBERGEROS 06/11/2023 10:48:46 Final Observation Date Value Abnormality Reference (Units ) Status Osmolality 06/11/2023 10:48:46 276 Below low normal 27 8-305 (mOsm/kg) Final Performing Location [facility] - [address] [place] [address]
--- OUTSIDE RECORDS SUMMARY | 2023-06-13 18:13 | External Medical Summary ---
Author Name Unknown Address Unknown Organization [id number]:[facility] - [address] [facility] [address] Laboratory Report Ordering Provider Test Date Status ARMANDO NEVAREZ 06/11/2023 10:48:46 Final Observation Date Value Abnormality Reference (Units ) Status SYNC LEUKOCYTES IN BLOOD BY AUTOMATED COUNT 06/11/2023 10:48:46 2.12 Below low normal 4.00-10.80 (K/uL) Final Segs 06/11/2023 10:48:46 52.8 40.0-75.0 (%) Final Lymphs % 06/11/2023 10:48:46 34.0 18.0-42.0 (%) Final Monos 06/11/2023 10:48:46 11.3 Above high normal 1.0-11.0 (%) Final Eosinophils 06/11/2023 10:48:46 0.0 0.0-6.0 (%) Final Basos 06/11/2023 10:48:46 1.9 0.0-2.0 (%) Final Immature Granulocyte, Percent 06/11/2023 10:48:46 0.0 0.0-2.0 (%) Final Absolute Segs 06/11/2023 10:48:46 1.12 Below low normal 1.80-7.70 (K/uL) Final Lymphs, absolute 06/11/2023 10:48:46 0.72 Below low normal 1.00-4.80 (K/ul) Final Monos, Abs 06/11/2023 10:48:46 0.24 0.00-1.10 (K/uL) Final Eos, Abs 06/11/2023 10:48:46 0.00 0.00-0.70 (K/uL) Final Basos, Abs 06/11/2023 10:48:46 0.04 0.00-0.20 (K/uL) Final Immature Granulocytes, Number 06/11/2023 10:48:46 0.00 0.00-0.20 (K/uL) Final Performing Location [facility] - [facility] [address] [facility] [address]
--- OUTSIDE RECORDS SUMMARY | 2023-06-13 18:13 | External Medical Summary ---
Author Name Unknown Address Unknown Organization [id number]:[facility] [place] [address] [place] [address] Laboratory Report Ordering Provider Test Date Status DAO LEON 06/11/2023 10:52:49 Final Observation Date Value Abnormality Reference (Units ) Status Sodium, Urine 06/11/2023 10:52:49 25 (mmol/ L) Final Potassium, Urine 06/11/2023 10:52:49 54.8 (mm ol/L) Final Chloride, Urine 06/11/2023 10:52:49 28 (mmo l/L) Final Performing Location [facility] [place] [address] [place] [address]
--- OUTSIDE RECORDS SUMMARY | 2023-06-13 18:13 | External Medical Summary ---
Author Name Unknown Address Unknown Organization [id number]:[facility] - [address] [place] [address] Laboratory Report Ordering Provider Test Date Status ABY LUNDBERG 06/11/2023 10:48:46 Final Observation Date Value Abnormality Reference (Units ) Status Magnesium 06/11/2023 10:48:46 2.3 1.5-2.6 (m g/dL) Final Performing Location [facility] - [address] [place] [address]
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
--- OUTSIDE RECORDS SUMMARY | 2023-06-13 18:13 | External Medical Summary ---
Author Name Unknown Address Unknown Organization [id number]:LABORATORY [facility] [place] - [address] [place] [address] [place] [address] Laboratory Report Ordering Provider Test Date Status ARMANDO NEVAREZ 06/11/2023 10:48:46 Final Observation Date Value Abnormality Reference (Units ) Status WBC, Total 06/11/2023 10:48:46 2.12 Below low normal 4. 00-10.80 (K/uL) Final RBC 06/11/2023 10:48:46 4.91 3.85-5.15 (M/uL) Final Hemoglobin 06/11/2023 10:48:46 15.4 Above high normal 1 2.0-15.3 (g/dL) Final Anemia reflex testing trigge rs on a HGB < 12.0 for Females and HGB < 13.0 for Males in accordance with the WHO Anemia Guidelines
Anemia reflex testing triggers on a HGB < 12.0 for Females and HGB < 13.0 for Males in accordance with the WHO Anemia Guidelines HCT 06/11/2023 10:48:46 45.2 36.0-45.2 (%) Final MCV 06/11/2023 10:48:46 92.1 81.5-97.5 (fL) Final MCH 06/11/2023 10:48:46 31.4 27.0-34.0 (pg) Final MCHC 06/11/2023 10:48:46 34.1 32.0-36.0 (g/dL) Final RDW 06/11/2023 10:48:46 14.0 11.5-15.5 (%) Final Platelets 06/11/2023 10:48:46 248 140-400 (K /uL) Final MPV 06/11/2023 10:48:46 10.2 6.6-11.1 ( fL) Final Nucleated erythrocytes/100 leukocytes [Ratio] in Blood by Automated count 06/11/2023 10:48:46 0 <=0 (/100 WBCs) Omari soares Performing Location LABORATORY [facility] – [place] - [address] [facility] [address]
--- OUTSIDE RECORDS SUMMARY | 2023-06-13 18:13 | External Medical Summary ---
Author Name Unknown Address Unknown Organization [id number]:LABORATORY [facility] [place] - [address] [place] [place] [address] Laboratory Report Ordering Provider Test Date Status ARMANDO NEVAREZ 06/11/2023 10:48:46 Final Observation Date Value Abnormality Reference (Units ) Status Lipase 06/11/2023 10:48:46 19 13-60 (U/L ) Final Performing Location LABORATORY [facility] - [address] [place] [address]
--- OUTSIDE RECORDS SUMMARY | 2023-06-13 18:13 | External Medical Summary ---
Author Name Unknown Address Unknown Organization [id number]:LABORATORY [facility] [place] - [address] [place] [address] [place] [address] Laboratory Report Ordering Provider Test Date Status JOSE ANTONIO LUNDBERGEROS 06/11/2023 10:52:49 Final Observation Date Value Abnormality Reference (Units ) Status Osmolality, Urine 06/11/2023 10:52:49 463 50 -1200 (mOsm/kg) Final Performing Location LABORATORY [facility] - [address] [place] [address]
--- OUTSIDE RECORDS SUMMARY | 2023-06-13 18:13 | External Medical Summary | Summary of Care ---
Author Name Unknown Organization [facility] Address [address] [place] [address] Phone [phone] Care Team Providers Care Touch Up Painter Hand Name Role Phone Hernando Maki MD Primary Care Provider + Reason for Visit * Reason Onset Date Comments Scheduling 06/11/2023 Encounter Details Date Type Department Care Team (Late st Contact Info) Description 06/11/2023 Telephone Family Practice [facility] [address] [facility] [place] [address] Hernando Maki MD [address] [facility] [place] [address] Scheduling Allergies Active Allergy Reactions Criticality Noted Date Comments [place]-Containing Products Edema airway High 08/15/2021 As per [...] Overview: psychogenic polydipsia, 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 [facility] History of multiple concussions 03/05/2023 History of [...] by Stefanie Paige 04/10 EEG WNL [facility] History of pituitary adenoma 02/09/2013 Lumbar disc [...] encounter Miscellaneous Notes * Telephone Encounter - Le Morris OSA - 06/11/2023 2:15 PM EDT Called patient and left message for patient to call office back. * Telephone Encounter - Vazquez Knapp OSA - 06/11/2023 10:49 AM EDT Please call pt to schedule Colonoscopy and EGD documented in this encounter Plan of Treatment Upcoming Encounters Date Type Department Care Team (Late st Contact Info) Description 06/18/2023 9:30 AM EDT Imaging Radiology [address] [place] [address] 06/29/2023 11:15 AM EDT Imaging Radiology [address] [place] [address] 07/08/2023 8:40 AM EDT Office Visit [facility] [address] [place] [address] Wild Parsons CRNP [address] [place] [address] 09/09/2023 11:40 AM EDT Office Visit [facility] [address] [place] [address] Hernando Maki MD [address] [place] [address] 09/23/2023 9:00 AM EDT Telemedicine Psychiatry, [facility] [address] [facility] [place] [address] Lara Hammond CRNP [address] [facility] [place] [phone] 11/09/2023 11:00 AM EDT Imaging Radiology, [facility] [address] [facility] [place] [address] 02/02/2024 3:00 PM EST Office Visit Gynecology/Obstetrics [facility] [address] [place] [address] Vidhya Campo PA-C [address] [place] [address] Health Maintenance Due Date Last Done Comments [...] Not on filedocumented as of this encounter Care Teams Touch Up Painter Hand Relationship Specialty Start Date End Date Hernando Maki MD [address] [place] [address] PCP - General Family Medicine 05/17/14 documented as of this encounter
--- OUTSIDE RECORDS SUMMARY | 2023-06-13 18:13 | External Medical Summary ---
Author Name Unknown Address Unknown Organization K01:LABORATORY [facility] [place] - [address] [facility] [address] [facility] [address] Laboratory Report Ordering Provider Test Date Status ARMNADO NEVAREZ 06/11/2023 10:48:46 Final Observation Date Value Abnormality Reference (Units ) Status TSH 06/11/2023 10:48:46 3.35 0.27-4.20 (uIU/mL) Final Performing Location LABORATORY [facility] [place] - [address] [facility] [address]
--- OUTSIDE RECORDS SUMMARY | 2023-06-13 18:13 | External Medical Summary ---
Author Name Unknown Address Unknown Organization K01:LABORATORY [address] [facility] [address] Laboratory Report Ordering Provider Test Date Status ARMANDO NEVAREZ 06/11/2023 10:48:46 Final Observation Date Value Abnormality Reference (Units ) Status HIV 1+2 Ab+HIV1 p24 Ag [Presence] in Serum or Plasma by Immunoassay 06/11/2023 10:48:46 Negative Negative Final Negative HIV-1/2 antigen and antibody screening tset results usually indicate the absence of HIV-1 and HIV-2 infection. However, such negative results do not rule-out acute HIV infection. If acute HIV-1 infection is highly suspected, it is recommended that a specimen be submitted for detection of HIV-1 RNA. Performing Location LABORATORY [facility] - [facility] [address]. [facility] [address]
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
--- OUTSIDE RECORDS SUMMARY | 2023-06-13 18:13 | External Medical Summary ---
Author Name Unknown Address Unknown Organization K0G:LABORATORY [facility] [place] [address] - [address] [place] [address] Laboratory Report Ordering Provider Test Date Status ABY LUNDBERG 06/11/2023 10:48:46 Final Observation Date Value Abnormality Reference (Units ) Status BUN 06/11/2023 10:48:46 16 6-20 (mg/dL) Final Creatinine 06/11/2023 10:48:46 0.8 0.5-1.0 (mg/dL) Final Glomerular filtration rate/1.73 sq M.predicted [Volume Rate/Area] in Serum, Plasma or Blood by Creatinine-based formula (CKD-EPI) 06/11/2023 10:48:46 >90 >=60 (mL/min) Final eGFR is calculated based on the CKD-EPI 2020 equation Sodium 06/11/2023 10:48:46 131 Below low normal 135 -146 (mmol/L) Final Potassium 06/11/2023 10:48:46 4.1 3.5-5.1 (m mol/L) Final Cl 06/11/2023 10:48:46 91 Below low normal 98- 107 (mmol/L) Final CO2 06/11/2023 10:48:46 30 22-32 (mmo l/L) Final Anion gap 06/11/2023 10:48:46 10 7-15 (mmol /L) Final Glucose 06/11/2023 10:48:46 84 70-120 (mg /dL) Final Calcium 06/11/2023 10:48:46 9.9 8.4-10.2 ( mg/dL) Final Performing Location LABORATORY [facility] [place] [address] - [address] [place] [address]
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
--- OUTSIDE RECORDS SUMMARY | 2023-06-13 18:14 | External Medical Summary ---
Author Name Unknown Address Unknown Organization K01:LAB[facility]ORY [facility] [address] [place] [address] Laboratory Report Ordering Provider Test Date Status DAO LEON 05/11/2023 16:25:46 Final Observation Date Value Abnormality Reference (Units ) Status Magnesium 05/11/2023 16:25:46 2.1 1.5-2.6 (m g/dL) Final Performing Location LABORATORY [facility] - [address] [place] [address]
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
--- OUTSIDE RECORDS SUMMARY | 2023-06-13 18:14 | External Medical Summary ---
Author Name Unknown Address Unknown Organization K01:LABORATORY [facility] - [address] [place] [address] Laboratory Report Ordering Provider Test Date Status DAO LEON 06/01/2023 15:29:19 Final Observation Date Value Abnormality Reference (Units ) Status Magnesium 06/01/2023 15:29:19 2.3 1.5-2.6 (m g/dL) Final Performing Location LABORATORY [facility] - [address] [place] [address]
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
--- OUTSIDE RECORDS SUMMARY | 2023-06-13 18:14 | External Medical Summary ---
Author Name Unknown Address Unknown Organization [id number]:LABORATORY [facility] [place] - [address] [place] [address] Laboratory Report Ordering Provider Test Date Status DAO LEON 05/11/2023 16:25:46 Final Observation Date Value Abnormality Reference (Units ) Status Osmolality, Urine 05/11/2023 16:25:46 111 50 -1200 (mOsm/kg) Final Performing Location [facility] - [address] [place] [address]
--- OUTSIDE RECORDS SUMMARY | 2023-06-13 18:14 | External Medical Summary ---
Author Name Unknown Address Unknown Organization [id number]:LABORATORY [facility] [place] - [address] [place] [address] Laboratory Report Ordering Provider Test Date Status LEVI QUISPE 05/11/2023 16:25:46 Final Observation Date Value Abnormality Reference (Units ) Status MYCODE SPECIMEN-SST 05/11/2023 16:25:46 Freezing of extracted DNA, whole blood and/or serum. Final Performing Location LABORATORY [facility] - [address] [place] [address]
--- OUTSIDE RECORDS SUMMARY | 2023-06-13 18:14 | External Medical Summary ---
Author Name Unknown Address Unknown Organization [id number]:[facility]AT[facility] - [address] [place] [address] Laboratory Report Ordering Provider Test Date Status DAO LEON 05/11/2023 16:25:46 Final Observation Date Value Abnormality Reference (Units ) Status Osmolality 05/11/2023 16:25:46 268 Below low normal 27 8-305 (mOsm/kg) Final Performing Location [facility] - [address] [place] [address]
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
--- OUTSIDE RECORDS SUMMARY | 2023-06-13 18:14 | External Medical Summary ---
Author Name Unknown Address Unknown Organization K01:LABORATORY [facility] - [address] [place] [address] [place] [address] Laboratory Report Ordering Provider Test Date Status DAO LEON 06/01/2023 15:34:51 Final Observation Date Value Abnormality Reference (Units ) Status Osmolality, Urine 06/01/2023 15:34:51 273 50 -1200 (mOsm/kg) Final Performing Location [facility] - [address] [place] [address]
--- OUTSIDE RECORDS SUMMARY | 2023-06-13 18:14 | External Medical Summary ---
Author Name Unknown Address Unknown Organization K01:[place] [place] [address] [place] [address] [place] [address] Laboratory Report Ordering Provider Test Date Status DAO LEON 06/01/2023 15:29:19 Final Observation Date Value Abnormality Reference (Units ) Status BUN 06/01/2023 15:29:19 20 6-20 (mg/dL) Final Creatinine 06/01/2023 15:29:19 0.7 0.5-1.0 (mg/dL) Final Glomerular filtration rate/1.73 sq M.predicted [Volume Rate/Area] in Serum, Plasma or Blood by Creatinine-based formula (CKD-EPI) 06/01/2023 15:29:19 >90 >=60 (mL/min) Final eGFR is calculated based on the CKD-EPI 2020 equation Sodium 06/01/2023 15:29:19 133 Below low normal 135 -146 (mmol/L) Final Potassium 06/01/2023 15:29:19 4.7 3.5-5.1 (m mol/L) Final Cl 06/01/2023 15:29:19 95 Below low normal 98- 107 (mmol/L) Final CO2 06/01/2023 15:29:19 21 Below low normal 22- 32 (mmol/L) Final Anion gap 06/01/2023 15:29:19 17 Above high normal 7- 15 (mmol/L) Final Glucose 06/01/2023 15:29:19 88 70-120 (mg /dL) Final Calcium 06/01/2023 15:29:19 9.3 8.4-10.2 ( mg/dL) Final Performing Location [facility] [place] [address] [place] [address]
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
--- OUTSIDE RECORDS SUMMARY | 2023-06-13 18:14 | External Medical Summary ---
Author Name Unknown Address Unknown Organization K01:[facility] - [address] [place] [address] Laboratory Report Ordering Provider Test Date Status DAO LEON 05/11/2023 16:25:46 Final Observation Date Value Abnormality Reference (Units ) Status Phosphate 05/11/2023 16:25:46 2.9 2.5-4.8 (m g/dL) Final Performing Location [facility] - [address] [place] [address]
--- OUTSIDE RECORDS SUMMARY | 2023-06-13 18:14 | External Medical Summary | Summary of Care ---
Author Name Unknown Organization [facility] Address [address] [place] [address] Phone [phone] Care Team Providers Care Tire Molder Name Role Phone Hernando Maki MD Primary Care Provider + Reason for Visit * Reason Onset Date Comments Outpatient Testing 05/10/2023 Encounter Details Date Type Department Care Team (Late st Contact Info) Description 05/10/2023 Telephone [facility] 200 [facility] [place] [address] Dianelys Gavin MD 200 [facility] [place] [address] Outpatient Testing Allergies Active Allergy Reactions Criticality Noted Date Comments [place]-Containing Products Edema airway High 08/15/2021 As per [...] 0 08/21/2021 Active Meloxicam 15 MG Oral TabletIndication s:Chronic pain of right knee Take by mouth 1 Tablet in the morning. for pain.. 30 Tablet 1 10/23/2021 Active Additional Information Patient not taking.Reported on 03/14/2022 [facility] [place]. Devices Custom molded orthotics Bilateral bunion, hallux limitus, 2nd toe deformity left, foot discomfort and swelling Consider vargas's extension 1 Each 0 11/14/2021 Active Mupirocin 2 % External Ointment Apply topically to affected area 3 times a day. Apply to affected area--ingrown hairs 22 g 1 04/20/2022 Active Additional Information Patient not taking.Reported on 01/26/2023 Fluticasone Propionate 50 MCG/ACT Nasal Suspension (Flonase)Indicat ions:Chronic rhinitis Administer 2 Sprays into each nostril in the morning. 18 g 5 03/05/2023 Active Desvenlafaxine Succinate ER 50 MG Oral Tablet Extended Release 24 Hour (Pristiq) Take 1 Tablet by mouth in the morning. 30 Tablet 1 03/22/2023 05/11/2023 Discontinue d(Medicatio n/Dose Changed) documented as of [...] Raised by Stefanie Paige 04/10 EEG WNL [facility] History of pituitary adenoma 02/09/2013 [...] Telephone Encounter - Matilde Dueñas RN - 05/11/2023 3:35 PM EDT TE with pt. She is completing her lab work later today. * Telephone Encounter - Matilde Dueñas RN - 05/11/2023 9:08 AM EDT LMAM with call back number regarding lab tests to be completed. * Telephone Encounter - Matilde Dueñas RN - 05/10/2023 3:30 PM EDT LMAM with call back number regarding labs to be completed tomorrow. Will also forward this message to material scheduler for 10-14 day HD follow up.Labs ordered. documented in this encounter Plan of Treatment Upcoming Encounters Date Type Department Care Team (Late st Contact Info) Description 05/13/2023 10:00 AM EDT Telemedicine Psychology, [place] [address] [place] [address] Dana Costa, [facility] [address] [place] [address] 05/18/2023 11:00 AM EDT Office Visit Family Practice [facility] [address] [place] [address] Alina Cabral CRNP 132 [facility] [place] [address] 09/23/2023 9:00 AM EDT Telemedicine Psychiatry, [facility] [address] Lara Hammond [facility]NP [facility] [phone] 02/02/2024 3:00 PM EST Office Visit Gynecology/Obstetrics [facility] [address] [place] [address] Vidhya Campo PA-C [address] [place] [address] Scheduled Orders Name Type Priority Associated Diagnoses Orde r Schedule MAGNESIUM Lab Routine Hyponatremia Every Week for 3 Occurrences starting 05/10/2023 until 05/09/2024 PHOSPHORUS Lab Routine Hyponatremia Every Week for 3 Occurrences starting 05/10/2023 until 05/09/2024 ELECTROLYTES, RANDOM URINE Lab Routine Hyponatremia Every Week for 3 Occurrences starting 05/10/2023 until 05/09/2024 OSMOLALITY, SERUM Lab Routine Hyponatremia Every Week for 3 Occurrences starting 05/10/2023 until 05/09/2024 OSMOLALITY, URINE Lab Routine Hyponatremia Every Week for 3 Occurrences starting 05/10/2023 until 05/09/2024 BASIC METABOLIC PANEL Lab Routine Hyponatremia Every Mon, Thurs for 4 Occurrences starting 05/10/2023 until 05/09/2024 Health Maintenance Due Date Last Done Comments Hepatitis B (1 of 3 - 19+ 3-dose series) 1989 HPV/Co-Test 02/29/2000 Colonoscopy 2015 Fecal Occult Blood Test 2015 Sigmoidoscopy 2015 Mammogram 07/01/2022 07/01/2021 COVID-19 Vaccine ( - 2022-2 4 season) 2022 06/27/2020 Influenza [...] hyponatremia documented in this encounter Care Teams Tire Molder Relationship Specialty Start Date End Date Hernando Maki MD [address] [address] PCP - General Family Medicine 05/17/14 documented as of this encounter
--- OUTSIDE RECORDS SUMMARY | 2023-06-13 18:14 | External Medical Summary | Summary of Care ---
Author Name Unknown Organization [facility] Address [address] [place] [address] Phone [phone] Care Team Providers Care Filter Operator Name Role Phone Hernando Maki MD Primary Care Provider + Encounter Details Date Type Department Care Team (Late st Contact Info) Description 05/24/2023 Orders Only PATIENT PORTAL DO NOT DELETE THIS DEPT USED [place] [address] Allergies Active Allergy Reactions Criticality Noted Date Comments [place]-Containing Products Edema airway High 08/15/2021 As per pt. Does not consume corn containing products Escitalopram Other (Please comment) 04/11/2021 Vision disturbances. Peanut-Containing Drug Products Edema airway High 08/15/2021 As per pt. Does not consume peanut products Bupropion 02/22/2021 hives Wheat Edema airway High 08/15/2021 Per pt. Does not consume wheat products documented as of this encounter (statuses as of 05/24/2023) Medications Medication Sig Dispensed Refills Start Date [...] as of this encounter (statuses as of 05/24/2023) Active Problems Problem Noted Date Diagnosed Date Hyponatremia 05/22/2023 Overview: psychogenic polydipsia, 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 [facility] History of multiple concussions 03/05/2023 [...] as of this encounter (statuses as of 05/24/2023) Resolved Problems Problem Noted Date Diagnosed Date Resolved Date Pituitary adenoma 01/26/2023 03/05/2023 documented as of this encounter (statuses as of 05/24/2023) Immunizations Name Administration Dates Next Due PPD [...] Care Team (Late st Contact Info) Description 05/27/2023 10:40 AM EDT Office Visit Family Practice [facility] [address] [address] Hernando Maki MD [address] [address] 09/23/2023 9:00 AM EDT Telemedicine Psychiatry, [place] [address] [place] [address] Lara Hammond CRNP [address] [place] [phone] 02/02/2024 3:00 PM EST Office Visit Gynecology/Obstetrics [facility] [address] [place] [address] Vidhya Campo PA-C [address] [place] [address] Health Maintenance Due Date Last Done Comments [...] filedocumented as of this encounter Care Teams Filter Operator Relationship Specialty Start Date End Date Hernando Maki MD [address] [address] PCP - General Family Medicine 05/17/14 documented as of this encounter
--- OUTSIDE RECORDS SUMMARY | 2023-06-13 18:14 | External Medical Summary ---
Author Name Unknown Address Unknown Organization K01[facility] [address] [place] [address] Laboratory Report Ordering Provider Test Date Status DAO LEON 05/19/2023 11:08:02 Final Observation Date Value Abnormality Reference (Units ) Status Magnesium 05/19/2023 11:08:02 2.4 1.5-2.6 (m g/dL) Final Performing Location [facility] - [address] [place] [address]
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
--- OUTSIDE RECORDS SUMMARY | 2023-06-13 18:14 | External Medical Summary ---
Author Name Unknown Address Unknown Organization K01:[facility] [place] [address] [place] [address] Laboratory Report Ordering Provider Test Date Status LEVI QUISPE 05/11/2023 16:25:46 Final Observation Date Value Abnormality Reference (Units ) Status MYCODE SPECIMEN-SST 05/11/2023 16:25:46 Freezing of extracted DNA, whole blood and/or serum. Final Performing Location [facility] [place] [address] [place] [address]
--- OUTSIDE RECORDS SUMMARY | 2023-06-13 18:14 | External Medical Summary ---
Author Name Unknown Address Unknown Organization [id number]:[facility] - [address] [place] [address] Laboratory Report Ordering Provider Test Date Status DAO LEON 05/19/2023 11:10:52 Final Observation Date Value Abnormality Reference (Units ) Status Sodium, Urine 05/19/2023 11:10:52 22 (mmol/ L) Final Potassium, Urine 05/19/2023 11:10:52 46.4 (mm ol/L) Final Chloride, Urine 05/19/2023 11:10:52 38 (mmo l/L) Final Performing Location LABORATORY [facility] - [address] [place] [address]
--- OUTSIDE RECORDS SUMMARY | 2023-06-13 18:14 | External Medical Summary ---
Author Name Unknown Address Unknown Organization K01[facility] - [address] [place] [address] Laboratory Report Ordering Provider Test Date Status DAO LEON 05/19/2023 11:08:02 Final Observation Date Value Abnormality Reference (Units ) Status Phosphate 05/19/2023 11:08:02 3.7 2.5-4.8 (m g/dL) Final Performing Location [facility] - [address] [place] [address]
--- OUTSIDE RECORDS SUMMARY | 2023-06-13 18:14 | External Medical Summary | Summary of Care ---
Author Name Unknown Organization [facility] Address [address] [place] [address] Phone [phone] Care Team Providers Care Manager English Name Role Phone Hernando Maki MD Primary Care Provider + Reason for Visit * Reason Onset Date Comments Test Results 06/02/2023 Encounter Details Date Type Department Care Team (Late st Contact Info) Description 06/02/2023 Telephone [facility] [address] [place] [address] Jose Odom MD [address] [place] [address] Test Results Allergies Active Allergy Reactions Criticality Noted Date Comments [place]-Containing Products Edema airway High 08/15/2021 As per [...] Additional Information Patient not taking.Reported on 03/14/2022 [facility] [place]. Devices Custom molded orthotics [...] Hyponatremia 05/22/2023 Overview: psychogenic polydipsia, 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 [facility] History of multiple concussions 03/05/2023 History of [...] Raised by Stefanie Paige 04/10 EEG WNL [facility] History of pituitary adenoma 02/09/2013 Lumbar disc [...] Telephone Encounter - Matilde Dueñas RN - 06/02/2023 1:50 PM EDT Message sent via [employer] and follow up labs ordered. * Telephone Encounter - Matilde Dueñas RN - 06/02/2023 1:39 PM EDT ----- Message from Jose Odom MD sent at 06/02/2023 1:11 PM EDT ----- Na is still low but somewhat stable. Needs to lower fluid intake to 50 oz per day and dramatically raise protein intake. Unless that happens not going to have higher na. Continue same Labs in 2 week. documented in this encounter Plan of Treatment Upcoming Encounters Date Type Department Care Team (Late st Contact Info) Description 06/04/2023 12:40 PM EDT Office Visit [facility] [address] [place] [address] Kiana Bnejamin CRNP [address] [place] [address] 06/11/2023 9:40 AM EDT Office Visit [facility] [address] [address] Hernando Maki MD [address] [place] [phone] 09/23/2023 9:00 AM EDT Telemedicine Psychiatry, [facility] 200 [facility] [place] [address] Lara Hammond CRNP [address] [facility] [place] [phone] 02/02/2024 3:00 PM EST Office Visit Gynecology/Obstetrics [facility] [address] [address] Vidhya Campo PA-C [address] [place] [address] Scheduled Orders Name Type Priority Associated Diagnoses Orde r Schedule OSMOLALITY, URINE Lab Routine Hyponatremia Expected: 06/14/2023 (Approximate), Expires: 06/01/2024 OSMOLALITY, SERUM Lab Routine Hyponatremia Expected: 06/14/2023 (Approximate), Expires: 06/01/2024 BASIC METABOLIC PANEL Lab Routine Hyponatremia Expected: 06/14/2023 (Approximate), Expires: 06/01/2024 PHOSPHORUS Lab Routine Hyponatremia Expected: 06/14/2023 (Approximate), Expires: 06/01/2024 MAGNESIUM Lab Routine Hyponatremia Expected: 06/14/2023 (Approximate), Expires: 06/01/2024 Health Maintenance Due Date [...] hyponatremia documented in this encounter Care Teams Manager English Relationship Specialty Start Date End Date Hernando Maki MD [address] [address] PCP - General Family Medicine 05/17/14 documented as of this encounter
--- OUTSIDE RECORDS SUMMARY | 2023-06-13 18:14 | External Medical Summary ---
Author Name Unknown Address Unknown Organization K01:[facility] - [address] [place] [address] Laboratory Report Ordering Provider Test Date Status ABY LUNDBERG 06/01/2023 15:29:19 Final Observation Date Value Abnormality Reference (Units ) Status Osmolality 06/01/2023 15:29:19 278 278-305 ( mOsm/kg) Final Performing Location [facility] - [address] [place] [address]
--- OUTSIDE RECORDS SUMMARY | 2023-06-13 18:14 | External Medical Summary ---
Author Name Unknown Address Unknown Organization K01:[facility] [place] - [address] [facility] [place] [address] Laboratory Report Ordering Provider Test Date Status DAO LEON 05/11/2023 16:25:46 Final Observation Date Value Abnormality Reference (Units ) Status BUN 05/11/2023 16:25:46 15 6-20 (mg/dL) Final Creatinine 05/11/2023 16:25:46 0.8 0.5-1.0 (mg/dL) Final Glomerular filtration rate/1.73 sq M.predicted [Volume Rate/Area] in Serum, Plasma or Blood by Creatinine-based formula (CKD-EPI) 05/11/2023 16:25:46 >90 >=60 (mL/min) Final eGFR is calculated based on the CKD-EPI 2020 equation Sodium 05/11/2023 16:25:46 128 Below low normal 135 -146 (mmol/L) Final Potassium 05/11/2023 16:25:46 4.4 3.5-5.1 (m mol/L) Final Cl 05/11/2023 16:25:46 91 Below low normal 98- 107 (mmol/L) Final CO2 05/11/2023 16:25:46 28 22-32 (mmo l/L) Final Anion gap 05/11/2023 16:25:46 9 7-15 (mmol /L) Final Glucose 05/11/2023 16:25:46 106 70-120 (mg /dL) Final Calcium 05/11/2023 16:25:46 9.6 8.4-10.2 ( mg/dL) Final Performing Location [facility] [place] - [address] [place] [address]
--- OUTSIDE RECORDS SUMMARY | 2023-06-13 18:14 | External Medical Summary ---
Author Name Unknown Address Unknown Organization K0G:LABORATORY [facility] 57-10 - [address] [place] [address] Laboratory Report Ordering Provider Test Date Status DAO LEON 05/19/2023 11:08:02 Final Observation Date Value Abnormality Reference (Units ) Status BUN 05/19/2023 11:08:02 17 6-20 (mg/dL) Final Creatinine 05/19/2023 11:08:02 0.7 0.5-1.0 (mg/dL) Final Glomerular filtration rate/1.73 sq M.predicted [Volume Rate/Area] in Serum, Plasma or Blood by Creatinine-based formula (CKD-EPI) 05/19/2023 11:08:02 >90 >=60 (mL/min) Final eGFR is calculated based on the CKD-EPI 2020 equation Sodium 05/19/2023 11:08:02 131 Below low normal 135 -146 (mmol/L) Final Potassium 05/19/2023 11:08:02 4.9 3.5-5.1 (m mol/L) Final Cl 05/19/2023 11:08:02 93 Below low normal 98- 107 (mmol/L) Final CO2 05/19/2023 11:08:02 27 22-32 (mmo l/L) Final Anion gap 05/19/2023 11:08:02 11 7-15 (mmol /L) Final Glucose 05/19/2023 11:08:02 95 70-120 (mg /dL) Final Calcium 05/19/2023 11:08:02 9.5 8.4-10.2 ( mg/dL) Final Performing Location LABORATORY [facility] 57-1 0 - [address] [place] [address]
--- OUTSIDE RECORDS SUMMARY | 2023-06-13 18:14 | External Medical Summary ---
Author Name Unknown Address Unknown Organization K[facility] [address] [place] [address] Laboratory Report Ordering Provider Test Date Status ABY LUNDBERG 06/01/2023 15:29:19 Final Observation Date Value Abnormality Reference (Units ) Status BUN 06/01/2023 15:29:19 21 Above high normal 6-20 (mg/dL) Final Creatinine 06/01/2023 15:29:19 0.8 0.5-1.0 (mg/dL) Final Glomerular filtration rate/1.73 sq M.predicted [Volume Rate/Area] in Serum, Plasma or Blood by Creatinine-based formula (CKD-EPI) 06/01/2023 15:29:19 >90 >=60 (mL/min) Final eGFR is calculated based on the CKD-EPI 2020 equation Sodium 06/01/2023 15:29:19 129 Below low normal 135 -146 (mmol/L) Final Potassium 06/01/2023 15:29:19 4.5 3.5-5.1 (m mol/L) Final Cl 06/01/2023 15:29:19 93 Below low normal 98- 107 (mmol/L) Final CO2 06/01/2023 15:29:19 23 22-32 (mmo l/L) Final Anion gap 06/01/2023 15:29:19 13 7-15 (mmol /L) Final Glucose 06/01/2023 15:29:19 92 70-120 (mg /dL) Final Calcium 06/01/2023 15:29:19 9.9 8.4-10.2 ( mg/dL) Final Performing Location LABORATORY [facility] 57-1 0 - [address] [place] [address]
--- OUTSIDE RECORDS SUMMARY | 2023-06-13 18:14 | External Medical Summary | Summary of Care ---
Author Name Unknown Organization [facility] Address [address] [place] [address] Phone [phone] Care Team Providers Care Mailroom Supervisor Name Role Phone Hernando Maki MD Primary Care Provider + Reason for Visit * Reason Comments Outpatient Testing Encounter Details Date Type Department Care Team (Late st Contact Info) Description 05/14/2023 12:50 PM EDT Laboratory Laboratory, [facility] [address] [place] [address] [facility] [address] [place] [address] Hyponatremia Allergies Active Allergy Reactions Criticality Noted Date Comments [place]-Containing Products Edema airway High 08/15/2021 As per [...] Additional Information Patient not taking.[place]14/2022 [facility] [place] Devices Custom molded orthotics [...] Raised by Stefanie Paige 04/10 EEG WNL [facility] History of pituitary adenoma 02/09/2013 [...] 11:00 AM EDT Office Visit Family Practice [facility] [address] [address] Alina Cabral CRNP [address] [place] [address] 05/21/2023 1:00 PM EDT Office Visit [facility] [address] [place] [address] Jose Odom MD [address] [place] [address] 09/23/2023 9:00 AM EDT Telemedicine Psychiatry, [facility] [address] [place] [address] Lara Hammond, ARL[place] [address] [place] [phone] 02/02/2024 3:00 PM EST [facility] [address] [place] [address] Vidhya Campo PA-C [address] [place] [address] Pending Results Name Type Priority Associated Diagnoses Date /Time BASIC METABOLIC PANEL Lab Routine Hyponatremia 05/14/2023 12:57 PM EDT Health Maintenance Due Date Last [...] hyponatremia documented in this encounter Care Teams Mailroom Supervisor Relationship Specialty Start Date End Date Hernando Maki MD [address] [place] [address] PCP - General Family Medicine 05/17/14 documented as of this encounter
--- OUTSIDE RECORDS SUMMARY | 2023-06-13 18:14 | External Medical Summary | Summary of Care ---
Author Name Unknown Organization [facility] Address [address] [place] [address] Phone [phone] Care Team Providers Care University Intern Name Role Phone Hernando Maki MD Primary Care Provider + Reason for Visit * Reason Comments Outpatient Testing Encounter Details Date Type Department Care Team (Late st Contact Info) Description 05/11/2023 4:40 PM EDT Laboratory Laboratory, [facility] [address] [place] [address] [facility] [address] [place] [address] [employer] Other*[id number]; Hyponatremia Allergies Active Allergy Reactions Criticality Noted Date Comments [place]-Containing Products Edema airway High 08/15/2021 As per [...] Additional Information Patient not taking.Reported [place] 03/14/2022 [facility] [place] Devices [...] Raised by Stefanie Paige 04/10 EEG WNL [facility] History of pituitary adenoma 02/09/2013 Lumbar [...] Description 05/13/2023 10:00 AM EDT Telemedicine Psychology, [place] [address] [place] [address] Dana Costa, [facility] [address] [facility] [place] [address] 05/18/2023 11:00 AM EDT Office Visit Family Practice [facility] 132 [facility] [place] [address] Alina Cabral CRNP [address] [place] [address] 09/23/2023 9:00 AM EDT Telemedicine Psychiatry, [facility] 200 [facility] [place] [address] Lara Hammond CRNP [address] [facility] [place] [phone] 02/02/2024 3:00 PM EST Office Visit Gynecology/Obstetrics [facility] [address] [place] [address] Vidhya Campo PA-C [address] [facility] [place] [address] Pending Results Name Type Priority Associated Diagnoses Date /Time MYCODE SUBSEQUENT ADULT Lab Routine [employer] Other*[id number] 05/11/2023 4:25 PM EDT MAGNESIUM Lab Routine Hyponatremia 05/11/2023 4:25 PM EDT PHOSPHORUS Lab Routine Hyponatremia 05/11/2023 4:25 PM EDT ELECTROLYTES, RANDOM URINE Lab Routine Hyponatremia 05/11/2023 4:25 PM EDT OSMOLALITY, SERUM Lab Routine Hyponatremia 05/11/2023 4:25 PM EDT OSMOLALITY, URINE Lab Routine Hyponatremia 05/11/2023 4:25 PM EDT BASIC METABOLIC PANEL Lab Routine Hyponatremia 05/11/2023 4:25 PM EDT MYCODE SST1 Lab Routine [employer] Other*[id number] 05/11/2023 4:25 PM EDT MYCODE SST2 Lab Routine [employer] Other*[id number] 05/11/2023 4:25 PM EDT Health Maintenance Due Date Last [...] as of this encounter Visit Diagnoses Diagnosis [employer] Other*[id number] Hyponatremia Hyposmolality and/or hyponatremia documented in this encounter Care Teams University Intern Relationship Specialty Start Date End Date Hernando Maki MD [address] [place] [address] PCP - General Family Medicine 05/17/14 documented as of this encounter
--- OUTSIDE RECORDS SUMMARY | 2023-06-13 18:14 | External Medical Summary ---
Author Name Unknown Address Unknown Organization K01:[facility] - [address] [place] [address] Laboratory Report Ordering Provider Test Date Status DAO LEON 05/19/2023 11:08:02 Final Observation Date Value Abnormality Reference (Units ) Status Osmolality 05/19/2023 11:08:02 276 Below low normal 27 8-305 (mOsm/kg) Final Performing Location [facility] - [address] [place] [address]
--- OUTSIDE RECORDS SUMMARY | 2023-06-13 18:14 | External Medical Summary ---
Author Name Unknown Address Unknown Organization K01:[facility] [address] [facility] [address] [place] [address] Laboratory Report Ordering Provider Test Date Status DAO LEON 05/19/2023 11:10:52 Final Observation Date Value Abnormality Reference (Units ) Status Osmolality, Urine 05/19/2023 11:10:52 317 50 -1200 (mOsm/kg) Final Performing Location [facility] - [address] [place] [address]
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
--- OUTSIDE RECORDS SUMMARY | 2023-06-13 18:14 | External Medical Summary ---
Author Name Unknown Address Unknown Organization [id number]:[facility]ATORY [facility] - [address] [place] [address] Laboratory Report Ordering Provider Test Date Status DAO LEON 05/14/2023 12:57:37 Final Observation Date Value Abnormality Reference (Units ) Status BUN 05/14/2023 12:57:37 17 6-20 (mg/dL) Final Creatinine 05/14/2023 12:57:37 0.7 0.5-1.0 (mg/dL) Final Glomerular filtration rate/1.73 sq M.predicted [Volume Rate/Area] in Serum, Plasma or Blood by Creatinine-based formula (CKD-EPI) 05/14/2023 12:57:37 >90 >=60 (mL/min) Final eGFR is calculated based on the CKD-EPI 2020 equation Sodium 05/14/2023 12:57:37 129 Below low normal 135 -146 (mmol/L) Final Potassium 05/14/2023 12:57:37 4.1 3.5-5.1 (m mol/L) Final Cl 05/14/2023 12:57:37 93 Below low normal 98- 107 (mmol/L) Final CO2 05/14/2023 12:57:37 29 22-32 (mmo l/L) Final Anion gap 05/14/2023 12:57:37 7 7-15 (mmol /L) Final Glucose 05/14/2023 12:57:37 93 70-120 (mg /dL) Final Calcium 05/14/2023 12:57:37 9.5 8.4-10.2 ( mg/dL) Final Performing Location [facility]ORY [facility] - [address] [place] [address]
--- OUTSIDE RECORDS SUMMARY | 2023-06-13 18:14 | External Medical Summary ---
Author Name Unknown Address Unknown Organization [id number]:[facility] [place] [address] [facility] [address] Laboratory Report Ordering Provider Test Date Status DAO LEON 05/11/2023 16:25:46 Final Observation Date Value Abnormality Reference (Units ) Status Sodium, Urine 05/11/2023 16:25:46 <20 (mmol/ L) Final Potassium, Urine 05/11/2023 16:25:46 24.0 (mm ol/L) Final Chloride, Urine 05/11/2023 16:25:46 <20 (mmo l/L) Final Performing Location [facility] [place] [address] [facility] [address]
--- OUTSIDE RECORDS SUMMARY | 2023-06-13 18:14 | External Medical Summary ---
Author Name Unknown Address Unknown Organization [id number]:[facility] - [address] [place] [address] Laboratory Report Ordering Provider Test Date Status DAO LEON 06/01/2023 15:29:19 Final Observation Date Value Abnormality Reference (Units ) Status Phosphate 06/01/2023 15:29:19 3.6 2.5-4.8 (m g/dL) Final Performing Location LAB[facility]ATORY [facility] - [address] [place] [address]
[2023-06-13 19:20] LABS: BUN Creatinine Ratio 25.7 (10-20); Creatinine Clr Calc Pharmacy 77.3 ml/min; Est GFR (African American) 114.6 ml/min; Est GFR (Non-African American) 98.9 ml/min; Potassium 4.1 mmol/L (3.5-5.1)
[2023-06-13 19:28] LABS: Basophils # (auto) 0.01 K/uL (0.00-0.20); Basophils % (auto) 0.2 %; Hematocrit (blood only) 35.7 % (37.0-47.0); Hemoglobin 12.6 g/dl (12.0-16.0); Lymphocytes # (auto) 0.29 K/uL (1.20-3.40); Lymphocytes % (auto) 6.8 %; Mean Corpuscular Hemoglobin 31.3 pg (25.0-34.0); Mean Corpuscular Hgb Conc 35.3 g/dL (32.0-36.0); Mean Corpuscular Volume 88.8 fL (80.0-100.0); Mean Platelet Volume 9.6 fL (9.4-12.4); Monocytes # (auto) 0.22 K/uL (0.11-0.59); Monocytes % (auto) 5.1 %; Neutrophils # (auto) 3.77 K/uL (1.40-6.50); Neutrophils % (auto) 87.9 %; Platelet Count 179 K/uL (130-400); RDW Coefficient of Variation 13.7 % (11.5-14.5); RDW Standard Deviation 45.3 fL (36.4-46.3); Red Blood Count 4.02 M/uL (4.20-5.40); White Blood Count 4.29 K/ul (4.8-10.8)
--- NOTE | 2023-06-13 19:45 | Emergency Department Note ---
Impression & Plan Acute hyponatremia ED Provider Note NAME: MONICA ERWIN AGE: 53 SEX: F : 1970 ARRIVES VIA: Walk-In INFORMANT: Patient, ED PROVIDER(S): Goldie Albarran MD CHIEF COMPLAINT: Sodium 125 HPI: This is a 53-year-old female presenting for hyponatremia. Patient states that she had outpatient blood work shows a low sodium. She notes that she has had some mild confusion as well as discoordination clinically. This gotten worse over the past few weeks. She feels that she have difficulty thinking. Otherwise she does drink significant water throughout the day and tries dehydrated. Otherwise no nausea, vomiting, diarrhea, chest pain, shortness of breath. Does have a slight headache at this time ROS: See above HPI for pertinent positives & negatives. A total of 10 systems reviewed and were otherwise negative. PHYSICAL EXAMINATION: General: resting comfortably in no acute distress Head: Normocephalic and atraumatic Eyes: Normal inspection, extraocular muscles intact Ear, nose, throat: Normal external exam Neck: Normal range of motion Respiratory: lungs clear to auscultation bilaterally Cardiovascular: Regular rate/rhythm, no murmur GI: soft, nontender, no guarding or rebound Extremities: nontender, moves all extremities Neuro: The patient awake and alert, appropriately conversive, no focal deficits, symmetric faces, no dysmetria, cranial nerves II through XII intact, no motor drift Skin: Warm, dry, and intact MEDICAL DECISION MAKING: This is a 53-year-old female senting for hyponatremia. Patient is have a longstanding history of mild hyponatremia, now slightly worse. Patient having new symptoms concerning for hyponatremia. Unclear if patient is having SIADH versus idiopathic hyponatremia. Will do head CT to rule out stroke versus intracranial mass. -Clinically she does not have any actual neurologic deficits on my exam -CT imaging negative -Patient initially resistant to admission however will eventually does consent to admission at this time -Patient mated under [facility] Hospitalist service Differential diagnosis: See above ER treatment provided: See below Diagnostics interpreted by me: ECG: None Cardiac Monitoring: An order was placed for continuous cardiac monitoring. The monitor shows a rate of 53 with sinus rhythm. Laboratory studies: As stated above and show below. Imaging studies: See below. Past Med/Surg History Medical History Pelvic fracture Lumbar disc disease No chronic diseases present Surgical History Status post endovenous radiofrequency ablation (RFA) of saphenous vein Inguinal hernia No significant past surgical history Family History Mother Breast cancer Social History Smoking Status: Never smoker Hx Alcohol Use: No Hx Substance Use: No Preferred Language: Azeri Communication Ability: Effective [place] Required: No Beliefs That Will Affect Care: None Feels Safe at Home: Yes Assistive Devices: None Allergies Allergies Allergy/AdvReac Type Severity Reaction Status Date / Time latex Allergy Intermediate Rash Verified 06/13/23 20:20 peanut Allergy Intermediate EDEMA/RASH Verified 06/13/23 20:20 wheat Allergy Intermediate CELIAC Verified 06/13/23 20:20 DISEASE escitalopram AdvReac Severe Seizure Verified 06/13/23 20:20 oxycodone AdvReac Severe Seizure Verified 06/13/23 20:20 acetaminophen AdvReac Intermediate Vomiting Verified 06/13/23 20:20 bupropion [From Wellbutrin] AdvReac Intermediate VISUAL Verified 06/13/23 20:20 DISTURBANCE Home Meds Home Medications Medication Instructions Recorded Confirmed fluticasone propionate 50 2 spray intranasal QAM PRN 05/07/23 06/13/23 mcg/actuation nasal Congestion spray,suspension buspirone 7.5 mg tablet 7.5 mg PO BID 06/13/23 06/13/23 Previous Rx's Medication Instructions Recorded haloperidol 5 mg tablet 5 mg PO HS #30 tabs 05/10/23 potassium chloride 10 mEq 10 meq PO BID #60 tabs 05/10/23 tablet,extended release(part/cryst) Results & Data (ED) Vital Signs Vital Signs - 24 hr 06/13/23 18:19 06/13/23 18:48 06/13/23 19:55 Temperature 36.2 C L Temperature Source Temporal Artery Scan Pulse Rate 69 56 L Pulse Rate [Apical] 56 L Pulse Rate from SpO2 Sensor Pulse Rhythm [Apical] Pulse Strength [Apical] Normal Respiratory Rate 19 19 Respiratory Effort / Characteristics Non-Labored Spontaneous Non-Labored Spontaneous Respiratory Depth Normal Normal Respiratory Pattern Regular Blood Pressure 111/77 Blood Pressure [Right Arm] 118/80 Blood Pressure Mean 88 Blood Pressure Mean [Right Arm] 92 Blood Pressure Position [Right Arm] Lying Pulse Oximetry 99 100 Oxygen Delivery Method Room Air Room Air Sepsis Recent Fever Within 48 Hours No Sepsis New/Unexplained Change in Mental Status N/A Sepsis Action Taken by Nursing No Action Required 06/13/23 21:24 06/13/23 21:24 06/13/23 21:30 Temperature Temperature Source Pulse Rate 54 L 54 L Pulse Rate [Apical] 54 L Pulse Rate from SpO2 Sensor 54 L 55 L Pulse Rhythm [Apical] Regular Pulse Strength [Apical] Normal Respiratory Rate 18 15 17 Respiratory Effort / Characteristics Non-Labored Spontaneous Respiratory Depth Normal Respiratory Pattern Regular Blood Pressure 120/86 Blood Pressure [Right Arm] 120/86 Blood Pressure Mean 97 Blood Pressure Mean [Right Arm] 97 Blood Pressure Position [Right Arm] Pulse Oximetry 98 99 99 Oxygen Delivery Method Room Air Room Air Room Air Sepsis Recent Fever Within 48 Hours Sepsis New/Unexplained Change in Mental Status Sepsis Action Taken by Nursing 06/13/23 21:59 06/13/23 22:00 06/13/23 22:30 Temperature Temperature Source Pulse Rate 54 L 53 L Pulse Rate [Apical] 54 L Pulse Rate from SpO2 Sensor 53 L 54 L Pulse Rhythm [Apical] Pulse Strength [Apical] Respiratory Rate 19 14 17 Respiratory Effort / Characteristics Non-Labored Spontaneous Respiratory Depth Normal Respiratory Pattern Regular Blood Pressure 125/86 Blood Pressure [Right Arm] 125/86 Blood Pressure Mean 99 Blood Pressure Mean [Right Arm] 99 Blood Pressure Position [Right Arm] Pulse Oximetry 99 99 98 Oxygen Delivery Method Room Air Room Air Room Air Sepsis Recent Fever Within 48 Hours Sepsis New/Unexplained Change in Mental Status Sepsis Action Taken by Nursing 06/13/23 23:00 06/13/23 23:00 06/13/23 23:22 Temperature Temperature Source Pulse Rate 54 L 83 Pulse Rate [Apical] 53 L Pulse Rate from SpO2 Sensor 53 L Pulse Rhythm [Apical] Regular Pulse Strength [Apical] Normal Respiratory Rate 17 15 Respiratory Effort / Characteristics Non-Labored Spontaneous Respiratory Depth Normal Respiratory Pattern Regular Blood Pressure 119/82 Blood Pressure [Right Arm] 119/82 Blood Pressure Mean 94 Blood Pressure Mean [Right Arm] 94 Blood Pressure Position [Right Arm] Lying Pulse Oximetry 97 98 Oxygen Delivery Method Room Air Room Air Sepsis Recent Fever Within 48 Hours Sepsis New/Unexplained Change in Mental Status Sepsis Action Taken by Nursing 06/13/23 23:30 06/14/23 00:00 Temperature Temperature Source Pulse Rate 53 L 53 L Pulse Rate [Apical] Pulse Rate from SpO2 Sensor 53 L 53 L Pulse Rhythm [Apical] Pulse Strength [Apical] Respiratory Rate 16 17 Respiratory Effort / Characteristics Respiratory Depth Respiratory Pattern Blood Pressure 115/81 Blood Pressure [Right Arm] Blood Pressure Mean 92 Blood Pressure Mean [Right Arm] Blood Pressure Position [Right Arm] Pulse Oximetry 98 97 Oxygen Delivery Method Room Air Room Air Sepsis Recent Fever Within 48 Hours Sepsis New/Unexplained Change in Mental Status Sepsis Action Taken by Nursing Laboratory Data 06/13/23 18:45 06/13/23 18:45 Lab Results 06/13/23 Range/Units 18:45 WBC 4.29 L (4.8-10.8) K/ul RBC 4.02 L (4.20-5.40) M/uL Hgb 12.6 (12.0-16.0) g/dl Hct 35.7 L (37.0-47.0) % MCV 88.8 (80.0-100.0) fL MCH 31.3 (25.0-34.0) pg MCHC 35.3 (32.0-36.0) g/dL RDW Std Deviation 45.3 (36.4-46.3) fL RDW Coeff of Emanuel 13.7 (11.5-14.5) % Plt Count 179 (130-400) K/uL MPV 9.6 (9.4-12.4) fL Immature Gran % (Auto) 0.0 % Neut % (Auto) 87.9 % Lymph % (Auto) 6.8 % [place] % (Auto) 5.1 % Eos % (Auto) 0.0 % Baso % (Auto) 0.2 % Neut # (Auto) 3.77 (1.40-6.50) K/uL Lymph # (Auto) 0.29 L (1.20-3.40) K/uL [place] # (Auto) 0.22 (0.11-0.59) K/uL Eos # (Auto) 0.00 (0.00-0.50) K/uL Baso # (Auto) 0.01 (0.00-0.20) K/uL Immature Gran # (Auto) 0.00 L (0.01-0.20) K/uL Sodium 125 L (136-145) mmol/L Potassium 4.1 (3.5-5.1) mmol/L Chloride 92 L (98-107) mmol/L Carbon Dioxide 26 (21-32) mmol/L Anion Gap 7 (3-11) BUN 18 (6-23) mg/dl Creatinine 0.70 (0.6-1.2) mg/dl Est Cr Clr Drug Dosing 77.3 ml/min Est GFR ( Amer) 114.6 ml/min Est GFR (Non-Af Amer) 98.9 ml/min BUN/Creatinine Ratio 25.7 H (10-20) Glucose 91 (70-99(Fasting)) mg/dl Calcium 9.0 (8.6-10.3) mg/dl Imaging Data Radiologist's Impression: Head CT 06/13/23 19:34 Exam(s): CT HEAD Without Contrast EXAM: CT Head Without Intravenous Contrast CLINICAL HISTORY: not coordinated, difficulty walking, low sodium. TECHNIQUE: Axial computed tomography images of the head/brain without intravenous contrast. CTDI is 38.88 mGy and DLP is 547.75 mGy-cm. Automated exposure control was utilized for the study. A dose lowering technique was utilized adhering to the principles of ALARA. COMPARISON: CT head without contrast 05/06/2023 FINDINGS: Limitations: The most superior aspect of the calvarium at the vertex is partially excluded from the [id number]. Brain: Unremarkable. No hemorrhage. No significant white matter disease. No edema. Ventricles: Unremarkable. No ventriculomegaly. Bones/joints: No skull fracture. No abnormal lesion. Soft tissues: No overlying soft tissue abnormality identified. Sinuses: Unremarkable as visualized. No acute sinusitis. Mastoid air cells: Unremarkable as visualized. No mastoid effusion. IMPRESSION: No acute intracranial process identified. No significant alteration from the prior examination. Electronically signed by: Rodríguez Norris MD 06/13/23 20:46 PM Discharge Plan Visit Data Chief Complaint: Abnormal Labs/Diagnostic Testing Stated Complaint: LOW SODIUM LEVEL, HEADACHE ED Provider: Goldie Albarran Discharge Problem: Acute hyponatremia Forms Stand Alone Forms: My [facility] [employer] Prescriptions Prescriptions: No Action buspirone 7.5 mg tablet 7.5 mg PO BID fluticasone propionate 50 mcg/actuation spray,suspension 2 spray INTRANASAL QAM PRN (Reason: Congestion) potassium chloride 10 mEq Tablet,Er Particles/Crystals 10 meq PO BID Qty: 60 0RF haloperidol 5 mg Tablet 5 mg PO HS Qty: 30 0RF Referrals Referrals: Hernando Maki MD [Primary Care Provider] -
--- NOTE | 2023-06-13 20:47 | CT Scan Report ---
Exam(s): CT HEAD Without Contrast EXAM: CT Head Without Intravenous Contrast CLINICAL HISTORY: not coordinated, difficulty walking, low sodium. TECHNIQUE: Axial computed tomography images of the head/brain without intravenous contrast. CTDI is 38.88 mGy and DLP is 547.75 mGy-cm. Automated exposure control was utilized for the study. A dose lowering technique was utilized adhering to the principles of ALARA. COMPARISON: CT head without contrast 05/06/2023 FINDINGS: Limitations: The most superior aspect of the calvarium at the vertex is partially excluded from the [id number]. Brain: Unremarkable. No hemorrhage. No significant white matter disease. No edema. Ventricles: Unremarkable. No ventriculomegaly. Bones/joints: No skull fracture. No abnormal lesion. Soft tissues: No overlying soft tissue abnormality identified. Sinuses: Unremarkable as visualized. No acute sinusitis. Mastoid air cells: Unremarkable as visualized. No mastoid effusion. IMPRESSION: No acute intracranial process identified. No significant alteration from the prior examination. Electronically signed by: Rodríguez Norris MD 06/13/23 20:46 PM
--- NOTE | 2023-06-14 01:23 | History & Physical Report ---
Date of Service June 14, 2023 Assessment & Plan (1) Acute hyponatremia: Plan: 53-year-old female with past medical history significant for pituitary adenoma, chronic rhinitis, varicose veins of lower extremity, lumbar disc disease, mood disorder, paranoia, food insecurity, history of multiple concussions, history of trauma, history of hyponatremia comes because of low sodium and weakness. Patient was admitted in April with hyponatremia and possible seizures. At the time she eloped but she was brought in back. She was treated for acute on chronic hyponatremia thought to be from polydipsia with fluid restriction. She also given a dose of desmopressin and D5 water with concern that sodium was correcting too quickly. Was advised to drink protein shakes. And increased potassium diet. Psychiatry was consulted for polydipsia and other psych problem s and she was discharged on Haldol . She followed up with nephrology outpatient. Patient states a recent recheck of labs showed low sodium and she told her brother and was brought to the hospital. Currently she does not want to get admitted but after persuading she agreed to stay. She states has some weakness in the legs but she was ambulating okay. Has some headache. No blurred visions. Chronic earache. No runny nose no sore throat. No cough. No fevers. Appetite not great. She denies any chest pain or shortness of breath. She says she had episode of some blood in the stools today. Micturating okay. Resting comfortably and hemodynamically stable. Lately patient states is not following fluid restrictions and drinking a lot of water. Acute hyponatremia Acute on chronic hyponatremia Thought to be from polydipsia Last admission was discharged on fluid restrictions and advised to increase potassium and protein intake Patient states he is not following fluid restriction Will place on fluid restriction 1500 mill per day Follow BMP every 6 hours Follow urine osmolality, serum osmolality and urine sodium levels Slow correction Consult nephrology in a.m. History of paranoia Bipolar disorder Psychogenic polydipsia Currently on Haldol and BuSpar History of pituitary edema Per records Last admitted brain MRI was okay CT head okay today DVT prophylaxis Lovenox Disposition Med/telemetry Full code History of Present Illness Chief Complaint: Hyponatremia and weakness Primary Care Provider: Hernando Maki MD 53-year-old female with past medical history significant for pituitary adenoma, chronic rhinitis, varicose veins of lower extremity, lumbar disc disease, mood disorder, paranoia, food insecurity, history of multiple concussions, history of trauma, history of hyponatremia comes because of low sodium and weakness. Patient was admitted in April with hyponatremia and possible seizures. At the time she eloped but she was brought in back. She was treated for acute on chronic hyponatremia thought to be from polydipsia with fluid restriction. She also given a dose of desmopressin and D5 water with concern that sodium was correcting too quickly. Was advised to drink protein shakes. And increased potassium diet. Psychiatry was consulted for polydipsia and other psych problems and she was discharged on Haldol . She followed up with nephrology outpatient. Patient states a recent recheck of labs showed low sodium and she told her brother and was brought to the hospital. Currently she does not want to get admitted but after persuading she agreed to stay. She states has some weakness in the legs but she was ambulating okay. Has some headache. No blurred visions. Chronic earache. No runny nose no sore throat. No cough. No fevers. Appetite not great. She denies any chest pain or shortness of breath. She says she had episode of some blood in the stools today. Micturating okay. Resting comfortably and hemodynamically stable. Lately patient states is not following fluid restrictions and drinking a lot of water. Past medical history. As mentioned above Past surgical history. Ligation of oviducts. Repair of inguinal hernia. Vein ablation extremity. Social history. Lives alone. Former smoker. No alcohol use. No drug use. Family history. Mother had brain tumor. Breast cancer. Mental disorder. Father had mental disorder. Stomach cancer. Brother has mental disorder. Allergies Allergy/AdvReac Type Severity Reaction Status Date / Time latex Allergy Intermediate Rash Verified 06/13/23 20:20 peanut Allergy Intermediate EDEMA/RASH Verified 06/13/23 20:20 wheat Allergy Intermediate CELIAC Verified 06/13/23 20:20 DISEASE escitalopram AdvReac Severe Seizure Verified 06/13/23 20:20 oxycodone AdvReac Severe Seizure Verified 06/13/23 20:20 acetaminophen AdvReac Intermediate Vomiting Verified 06/13/23 20:20 bupropion [From Wellbutrin] AdvReac Intermediate VISUAL Verified 06/13/23 20:20 DISTURBANCE Home Medications Medication Instructions Recorded Confirmed Type fluticasone propionate 50 2 spray intranasal QAM PRN 05/07/23 06/13/23 History mcg/actuation nasal Congestion spray,suspension haloperidol 5 mg tablet 5 mg PO HS #30 tabs 05/10/23 06/13/23 Rx potassium chloride 10 mEq 10 meq PO BID #60 tabs 05/10/23 06/13/23 Rx tablet,extended release(part/cryst) buspirone 7.5 mg tablet 7.5 mg PO BID 06/13/23 06/13/23 History Past Med/Surg History Medical History Pelvic fracture Lumbar disc disease No chronic diseases present Surgical History Status post endovenous radiofrequency ablation (RFA) of saphenous vein Inguinal hernia No significant past surgical history Family History Mother Breast cancer Social History Smoking Status: Former smoker Smoking End Date: >10 yrs ago; Hx Alcohol Use: No Hx Substance Use: No Preferred Language: Bengali Communication Ability: Effective [employer] Field Technician Required: No Beliefs That Will Affect Care: None Current Living Situation: Alone Feels Safe at Home: Yes Assistive Devices: Glasses Review of Systems Review of Systems: All systems reviewed & are unremarkable except as noted in HPI & below Physical Exam Physical Exam: General- Not in distress Head- atraumatic Eyes- PERRL. ENT- oropharynx clear Neck- supple, no JVD. Lungs- clear to auscultation no wheezing or crackles. Heart- regular rhythm; no murmur, no gallop. Abdomen- normal bowel sounds, soft, nontender, no distension. Extremities- no pretibial edema, no erythema Neuro- alert, oriented PERRL,; no facial palsy; no dysarthria; moves extremities. Results & Data Results & Data Vital Signs (Past 12 Hours) Vital Signs Temp Pulse Pulse Resp BP BP Pulse Ox 06/14/23 00:00 53 L 17 115/81 97 06/13/23 23:30 53 L 16 98 06/13/23 23:22 83 06/13/23 23:00 54 L 15 119/82 98 06/13/23 23:00 53 L 17 119/82 97 06/13/23 22:30 53 L 17 98 06/13/23 22:00 54 L 14 125/86 99 06/13/23 21:59 54 L 19 125/86 99 06/13/23 21:30 54 L 17 99 06/13/23 21:24 54 L 15 120/86 99 06/13/23 21:24 54 L 18 120/86 98 06/13/23 19:55 56 L 06/13/23 18:48 56 L 19 118/80 100 06/13/23 18:19 36.2 C L 69 19 111/77 99 O2 Del Method 06/14/23 00:00 Room Air 06/13/23 23:30 Room Air 06/13/23 23:22 06/13/23 23:00 Room Air 06/13/23 23:00 Room Air 06/13/23 22:30 Room Air 06/13/23 22:00 Room Air 06/13/23 21:59 Room Air 06/13/23 21:30 Room Air 06/13/23 21:24 Room Air 06/13/23 21:24 Room Air 06/13/23 19:55 06/13/23 18:48 Room Air 06/13/23 18:19 Room Air Diagnostic Findings Laboratory Results WBC 4.29 K/ul (4.8-10.8) L 06/13/23 18:45 RBC 4.02 M/uL (4.20-5.40) L 06/13/23 18:45 Hgb 12.6 g/dl (12.0-16.0) 06/13/23 18:45 Hct 35.7 % (37.0-47.0) L 06/13/23 18:45 MCV 88.8 fL (80.0-100.0) 06/13/23 18:45 MCH 31.3 pg (25.0-34.0) 06/13/23 18:45 MCHC 35.3 g/dL (32.0-36.0) 06/13/23 18:45 RDW Std Deviation 45.3 fL (36.4-46.3) 06/13/23 18:45 RDW Coeff of Emanuel 13.7 % (11.5-14.5) 06/13/23 18:45 Plt Count 179 K/uL (130-400) 06/13/23 18:45 MPV 9.6 fL (9.4-12.4) 06/13/23 18:45 Immature Gran % (Auto) 0.0 % 06/13/23 18:45 Neut % (Auto) 87.9 % 06/13/23 18:45 Lymph % (Auto) 6.8 % 06/13/23 18:45 [place] % (Auto) 5.1 % 06/13/23 18:45 Eos % (Auto) 0.0 % 06/13/23 18:45 Baso % (Auto) 0.2 % 06/13/23 18:45 Neut # (Auto) 3.77 K/uL (1.40-6.50) 06/13/23 18:45 Lymph # (Auto) 0.29 K/uL (1.20-3.40) L 06/13/23 18:45 [place] # (Auto) 0.22 K/uL (0.11-0.59) 06/13/23 18:45 Eos # (Auto) 0.00 K/uL (0.00-0.50) 06/13/23 18:45 Baso # (Auto) 0.01 K/uL (0.00-0.20) 06/13/23 18:45 Immature Gran # (Auto) 0.00 K/uL (0.01-0.20) L 06/13/23 18:45 Sodium 125 mmol/L (136-145) L 06/13/23 18:45 Potassium 4.1 mmol/L (3.5-5.1) 06/13/23 18:45 Chloride 92 mmol/L (98-107) L 06/13/23 18:45 Carbon Dioxide 26 mmol/L (21-32) 06/13/23 18:45 Anion Gap 7 (3-11) 06/13/23 18:45 BUN 18 mg/dl (6-23) 06/13/23 18:45 Creatinine 0.70 mg/dl (0.6-1.2) 06/13/23 18:45 Est Cr Clr Drug Dosing 77.3 ml/min 06/13/23 18:45 Est GFR ( Amer) 114.6 ml/min 06/13/23 18:45 Est GFR (Non-Af Amer) 98.9 ml/min 06/13/23 18:45 BUN/Creatinine Ratio 25.7 (10-20) H 06/13/23 18:45 Glucose 91 mg/dl (70-99(Fasting)) 06/13/23 18:45 Calcium 9.0 mg/dl (8.6-10.3) 06/13/23 18:[address] 06/13/23 19:34 Exam(s): CT HEAD Without Contrast EXAM: CT Head Without Intravenous Contrast CLINICAL HISTORY: not coordinated, difficulty walking, low sodium. TECHNIQUE: Axial computed tomography images of the head/brain without intravenous contrast. CTDI is 38.88 mGy and DLP is 547.75 mGy-cm. Automated exposure control was utilized for the study. A dose lowering technique was utilized adhering to the principles of ALARA. COMPARISON: CT head without contrast 05/06/2023 FINDINGS: Limitations: The most superior aspect of the calvarium at the vertex is partially excluded from the [id number]. Brain: Unremarkable. No hemorrhage. No significant white matter disease. No edema. Ventricles: Unremarkable. No ventriculomegaly. Bones/joints: No skull fracture. No abnormal lesion. Soft tissues: No overlying soft tissue abnormality identified. Sinuses: Unremarkable as visualized. No acute sinusitis. Mastoid air cells: Unremarkable as visualized. No mastoid effusion. IMPRESSION: No acute intracranial process identified. No significant alteration from the prior examination. Electronically signed by: Rodríguez Norris MD 06/13/23 20:46 PM ECG Additional Comments: ECG. Sinus bradycardia rate of 56. No significant change was found. Code Status & VTE Plan VTE Prophylaxis Plan VTE Prophylaxis will be ordered: Yes
[2023-06-14] MEDS ORDERED: ZOLPIDEM TARTRATE 5 MG TAB PO PRN (01:35)
[2023-06-14] MEDS ORDERED: POLYETHYLENE (MIRALAX) 17 GM PACK PO PRN (02:10)
[2023-06-14] MEDS ORDERED: FLUTICASONE PROPIONATE NA SPR 16 GM BTL PRN (02:10)
[2023-06-14] MEDS ORDERED: NITROGLYCERIN SL 0.4 MG/TAB TAB SL PRN (02:10)
[2023-06-14] MEDS ORDERED: ACETAMINOPHEN 325 MG TAB PO PRN (02:10)
[2023-06-14] MEDS: busPIRone 7.5 MG TAB PO STA (02:46)
[2023-06-14] MEDS: KETOROLAC TROMETHAMINE 15 MG/ML VIAL IV ONE ×2 (03:09→09:03)
[2023-06-14 06:42] LABS: Calcium 8.6 mg/dl (8.6-10.3); Creatinine Clr Calc Pharmacy 94.8 ml/min; Est GFR (African American) 123.4 ml/min; Est GFR (Non-African American) 106.5 ml/min; Magnesium 1.9 mg/dl (1.7-2.4); Potassium 3.6 mmol/L (3.5-5.1)
[2023-06-14 07:31] LABS: Basophils # (auto) 0.01 K/uL (0.00-0.20); Basophils % (auto) 0.4 %; Hematocrit (blood only) 37.6 % (37.0-47.0); Hemoglobin 12.9 g/dl (12.0-16.0); Lymphocytes # (auto) 0.29 K/uL (1.20-3.40); Lymphocytes % (auto) 12.4 %; Mean Corpuscular Hemoglobin 30.8 pg (25.0-34.0); Mean Corpuscular Hgb Conc 34.3 g/dL (32.0-36.0); Mean Corpuscular Volume 89.7 fL (80.0-100.0); Mean Platelet Volume 9.5 fL (9.4-12.4); Monocytes # (auto) 0.14 K/uL (0.11-0.59); Neutrophils % (auto) 81.2 %; Platelet Count 172 K/uL (130-400); RDW Standard Deviation 45.8 fL (36.4-46.3); Red Blood Count 4.19 M/uL (4.20-5.40); White Blood Count 2.34 K/ul (4.8-10.8)
[2023-06-14] MEDS: ENOXAPARIN INJ 40 MG/0.4 ML SYR SQ SCH (08:18)
[2023-06-14] MEDS: POTASSIUM CHLORIDE 10 MEQ TABCR PO SCH (08:22)
[2023-06-14] MEDS: busPIRone 7.5 MG TAB PO SCH (08:23)
--- NOTE | 2023-06-14 09:36 | Nephrology Consultation ---
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 Urine osm is low. na from 125 to 131 already. No need of salt tab, Urea-na or really any meds. All she needs to do is drink no more than 2.5 liters of fluid per day. does not even need true fluid restriction like we do for [facility] patient. And raise her daily food/Protein intake. Can have nephrology follow up but Dx and Treatment is already established so no real urgency in having a f/u. History of Present Illness Reason for Consultation: Hyponatremia Attending Physician: King Thurston MD History of Present Illness 53/F with h/o Severe Hyponatremia caused by Severe Polydipsia ( Super low urine osm and admitted drinking massive amount) with Sig Psychiatric Problems. Patient was admitted in April with hyponatremia and possible seizures. At the time she eloped but she was brought back by police. She was treated for acute on chronic hyponatremia from classic polydipsia with fluid restriction. She also given a dose of desmopressin and D5 water with concern that sodium was correcting too quickly. Was advised to drink protein shakes. And increased potassium diet. Psychiatry was consulted for polydipsia and other psych problems and she was discharged on Haldol . Lately patient states is not following fluid restrictions and drinking a lot of water. Cannot tell the amount. now na is 131 and She feels fine and wants to go home now ROS---12 Systems reviewed and negative Physical Exam Physical Exam: General- Not in distress Head- atraumatic Eyes- PERRL. ENT- oropharynx clear Neck- supple, no JVD. Lungs- clear to auscultation no wheezing or crackles. Heart- regular rhythm; no murmur, no gallop. Abdomen- normal bowel sounds, soft, nontender, no distension. Extremities- no pretibial edema, no erythema Neuro- alert, oriented PERRL,; no facial palsy; no dysarthria; moves extremities. Allergies Allergy/AdvReac Type Severity Reaction Status Date / Time latex Allergy Intermediate Rash Verified 06/13/23 20:20 peanut Allergy Intermediate EDEMA/RASH Verified 06/13/23 20:20 wheat Allergy Intermediate CELIAC Verified 06/13/23 20:20 DISEASE escitalopram AdvReac Severe Seizure Verified 06/13/23 20:20 oxycodone AdvReac Severe Seizure Verified 06/13/23 20:20 acetaminophen AdvReac Intermediate Vomiting Verified 06/13/23 20:20 bupropion [From Wellbutrin] AdvReac Intermediate VISUAL Verified 06/13/23 20:20 DISTURBANCE Home Medications Medication Instructions Recorded Confirmed Type fluticasone propionate 50 2 spray intranasal QAM PRN 05/07/23 06/13/23 History mcg/actuation nasal Congestion spray,suspension haloperidol 5 mg tablet 5 mg PO HS #30 tabs 05/10/23 06/13/23 Rx potassium chloride 10 mEq 10 meq PO BID #60 tabs 05/10/23 06/13/23 Rx tablet,extended release(part/cryst) buspirone 7.5 mg tablet 7.5 mg PO BID 06/13/23 06/13/23 History Patient History Medical History Pelvic fracture Lumbar disc disease No chronic diseases present Surgical History Status post endovenous radiofrequency ablation (RFA) of saphenous vein Inguinal hernia No significant past surgical history Family History Mother Breast cancer Social History Smoking Status: Former smoker Smoking End Date: >10 yrs ago; Hx Alcohol Use: No Hx Substance Use: No Preferred Language: Irish Communication Ability: Effective Hvac Operations Technician Required: No Beliefs That Will Affect Care: None Current Living Situation: Alone Feels Safe at Home: Yes Assistive Devices: Glasses Results & Data Vital Signs (Past 12 Hours) Vital Signs Temp Pulse Pulse Pulse Resp BP BP 06/14/23 08:03 36.4 C L 62 16 120/76 06/14/23 06:01 60 06/14/23 02:14 52 L 06/14/23 02:10 06/14/23 02:10 36.4 C L 50 L 18 138/83 06/14/23 01:30 55 L 16 06/14/23 01:00 53 L 16 114/80 06/14/23 01:00 16 06/14/23 00:30 55 L 14 06/14/23 00:00 53 L 17 115/81 06/13/23 23:30 53 L 16 06/13/23 23:22 83 06/13/23 23:00 54 L 15 119/82 06/13/23 23:00 53 L 17 119/82 06/13/23 22:30 53 L 17 06/13/23 22:00 54 L 14 125/86 06/13/23 21:59 54 L 19 125/86 Pulse Ox O2 Del Method 06/14/23 08:03 97 Room Air 06/14/23 06:01 06/14/23 02:14 06/14/23 02:10 Room Air 06/14/23 02:10 99 Room Air 06/14/23 01:30 97 Room Air 06/14/23 01:00 97 Room Air 06/14/23 01:00 06/14/23 00:30 97 Room Air 06/14/23 00:00 97 Room Air 06/13/23 23:30 98 Room Air 06/13/23 23:22 06/13/23 23:00 98 Room Air 06/13/23 23:00 97 Room Air 06/13/23 22:30 98 Room Air 06/13/23 22:00 99 Room Air 06/13/23 21:59 99 Room Air
--- NOTE | 2023-06-14 10:57 | Discharge Summary ---
Date of Service June 14, 2023 Admission HPI Per Admitting Provider 53-year-old female with past medical history significant for pituitary adenoma, chronic rhinitis, varicose veins of lower extremity, lumbar disc disease, mood disorder, paranoia, food insecurity, history of multiple concussions, history of trauma, history of hyponatremia comes because of low sodium and weakness. Patient was admitted in April with hyponatremia and possible seizures. At the time she eloped but she was brought in back. She was treated for acute on chronic hyponatremia thought to be from polydipsia with fluid restriction. She also given a dose of desmopressin and D5 water with concern that sodium was correcting too quickly. Was advised to drink protein shakes. And increased potassium diet. Psychiatry was consulted for polydipsia and other psych problems and she was discharged on Haldol . She followed up with nephrology outpatient. Patient states a recent recheck of labs showed low sodium and she told her brother and was brought to the hospital. Currently she does not want to get admitted but after persuading she agreed to stay. She states has some weakness in the legs but she was ambulating okay. Has some headache. No blurred visions. Chronic earache. No runny nose no sore throat. No cough. No fevers. Appetite not great. She denies any chest pain or shortness of breath. She says she had episode of some blood in the stools today. Micturating okay. Resting comfortably and hemodynamically stable. Lately patient states is not following fluid restrictions and drinking a lot of water. Past medical history. As mentioned above Past surgical history. Ligation of oviducts. Repair of inguinal hernia. Vein ablation extremity. Social history. Lives alone. Former smoker. No alcohol use. No drug use. Family history. Mother had brain tumor. Breast cancer. Mental disorder. Father had mental disorder. Stomach cancer. Brother has mental disorder. Admission Exam Per Admitting Provider General- Not in distress Head- atraumatic Eyes- PERRL. ENT- oropharynx clear Neck- supple, no JVD. Lungs- clear to auscultation no wheezing or crackles. Heart- regular rhythm; no murmur, no gallop. Abdomen- normal bowel sounds, soft, nontender, no distension. Extremities- no pretibial edema, no erythema Neuro- alert, oriented PERRL,; no facial palsy; no dysarthria; moves extr emities. Principal Diagnosis Hyponatremia secondary to psychogenic polydipsia Discharge Exam General- slim F in NAD Head- atraumatic Eyes- PERRL. Neck- supple, no JVD. Lungs- clear to auscultation no wheezing or crackles. Heart- regular rhythm; no murmur, no gallop. Abdomen- normal bowel sounds, soft, nontender, no distension. Extremities- no pretibial edema, no erythema Neuro- alert, oriented PERRL,; no facial palsy; no dysarthria; moves extremities. Discharge Data Allergies Allergy/AdvReac Type Severity Reaction Status Date / Time latex Allergy Intermediate Rash Verified 06/13/23 20:20 peanut Allergy Intermediate EDEMA/RASH Verified 06/13/23 20:20 wheat Allergy Intermediate CELIAC Verified 06/13/23 20:20 DISEASE escitalopram AdvReac Severe Seizure Verified 06/13/23 20:20 oxycodone AdvReac Severe Seizure Verified 06/13/23 20:20 acetaminophen AdvReac Intermediate Vomiting Verified 06/13/23 20:20 bupropion [From Wellbutrin] AdvReac Intermediate VISUAL Verified 06/13/23 20:20 DISTURBANCE Consultations 06/13/23 21:58 ED Decision to Admit Stat 06/14/23 08:00 Consult Nephrology Routine Ordered Studies 06/13/23 19:34 CT head/brain wo con Stat FINDINGS: Limitations: The most superior aspect of the calvarium at the vertex is partially excluded from the [id number]. Brain: Unremarkable. No hemorrhage. No significant white matter disease. No edema. Ventricles: Unremarkable. No ventriculomegaly. Bones/joints: No skull fracture. No abnormal lesion. Soft tissues: No overlying soft tissue abnormality identified. Sinuses: Unremarkable as visualized. No acute sinusitis. Mastoid air cells: Unremarkable as visualized. No mastoid effusion. IMPRESSION: No acute intracranial process identified. No significant alteration from the prior examination. Hospital Course (1) Acute hyponatremia: 53-year-old female with past medical history significant for pituitary adenoma, chronic rhinitis, varicose veins of lower extremity, lumbar disc disease, mood disorder, paranoia, food insecurity, history of multiple concussions, history of trauma, history of hyponatremia comes because of low sodium and weakness. Patient was admitted in April with hyponatremia and possible seizures. At the time she eloped but she was brought in back. She was treated for acute on chronic hyponatremia thought to be from polydipsia with fluid restriction. She also given a dose of desmopressin and D5 water with concern that sodium was correcting too quickly. Was advised to drink protein shakes. And increased potassium diet. Psychiatry was consulted for polydipsia and other psych problems and she was discharged on Haldol . She followed up with nephrology outpatient. Patient states a recent recheck of labs showed low sodium and she told her brother and was brought to the hospital. Currently she does not want to get admitted but after persuading she agreed to stay. She states has some weakness in the legs but she was ambulating okay. Has some headache. No blurred visions. Chronic earache. No runny nose no sore throat. No cough. No fevers. Appetite not great. She denies any chest pain or shortness of breath. She says she had episode of some blood in the stools today. Micturating okay. Resting comfortably and hemodynamically stable. Lately patient states is not following fluid restrictions and drinking a lot of water. Acute hyponatremia Acute on chronic hyponatremia Secondary to psychogenic polydipsia Last admission was discharged on fluid restrictions and advised to increase potassium and protein intake Patient states she is not following fluid restriction Follow urine osmolality, serum osmolality and urine sodium levels Slow correction Current sodium 131 Pt reports feeling well and is requesting discharge Discussed w/ nephrology - ok to discharge - Daily fluid amount should not exceed 2.5 L. She should also increase protein intake. History of paranoia Bipolar disorder Psychogenic polydipsia Currently on Haldol and BuSpar History of pituitary edema Per records Last admitted brain MRI was okay CT head unremarkable Total Time Total Time Spent Total Time Spent (In Minutes): 40 Discharge Plan Discharge Items Patient Disposition: Home - Self-Care Reason For Visit: HYPONATREMIA Discharge Diagnosis: Hyponatremia secondary to psychogenic polydipsia Activity: Per Instructions section Non-emergency contact: Primary Care Provider and Shampoo Person Call non-emergency contact if: you have any medication questions and your symptoms worsen Follow-up/Referrals: Hernando Maki MD [Primary Care Provider] - (Date & Time 06/17/2023 10:40 AM Provider Hernando Maki MD [facility] ) Diet: Regular Fluids: 2000ml (8 cups) Addtl Attending Provider Instructions: Follow up with primary care doctor and cuff slitter. Your daily fluid amount should not be higher than 2.5 L. Also, it is recommended that you increase your protein intake. Pending Studies at Discharge: No Stand-Alone Forms: [facility], Pain - Opioid Pain Management, Work/School Release, Smoking Cessation Medications and DC Order Prescriptions: Continued buspirone 7.5 mg tablet 7.5 mg PO BID fluticasone propionate 50 mcg/actuation spray,suspension 2 spray INTRANASAL QAM PRN (Reason: Congestion) potassium chloride 10 mEq Tablet,Er Particles/Crystals 10 meq PO BID Qty: 60 0RF haloperidol 5 mg Tablet 5 mg PO HS Qty: 30 0RF Discharge Orders: Discharge Order (Routine); Ordered 06/14/23 Ordered By: King Thurston Admission Data Admit Date/Time: 06/14/23 00:57 Attending Provider: King Thurston Admit Provider: Ruddy Kirk Primary Care Provider: Hernando Maki Other Providers: Ruddy Kirk; Dianelys Gavin
[2023-06-14 11:27] LABS: BUN Creatinine Ratio 19.4 (10-20); Calcium 8.9 mg/dl (8.6-10.3); Creatinine Clr Calc Pharmacy 73.8 ml/min; Est GFR (African American) 110.8 ml/min; Est GFR (Non-African American) 95.6 ml/min
--- NOTE | 2023-06-14 12:56 | Electrocardiogram Report ---
Test Reason : Blood Pressure : / mmHG Vent. Rate : 056 BPM Atrial Rate : 056 BPM P-R Int : 206 ms QRS Dur : 078 ms QT Int : 428 ms P-R-T Axes : 059 051 034 degrees QTc Int : 413 ms Sinus bradycardia Otherwise normal ECG When compared with ECG of 07-MAY-2023 22:53, No significant change was found Confirmed by Silver Plummre ([id number]) on 06/14/2023 12:55:45 PM Referred By: REFERRED SELF Confirmed By:Silver Plummer
--- NOTE | 2023-06-14 13:00 | Electrocardiogram Report ---
Test Reason : Blood Pressure : / mmHG Vent. Rate : 051 BPM Atrial Rate : 051 BPM P-R Int : 222 ms QRS Dur : 084 ms QT Int : 462 ms P-R-T Axes : 061 061 046 degrees QTc Int : 425 ms Sinus bradycardia with 1st degree A-V block Otherwise normal ECG When compared with ECG of 13-JUN-2023 18:38, (unconfirmed) No significant change was found Confirmed by Silver Plummer ([id number]) on 06/14/2023 1:00:16 PM Referred By: REFERRED SELF Confirmed By:Silver Plummer
[2023-06-14] MEDS ORDERED: haloperidoL 5 MG TAB PO SCH (21:00)
== END 2023-06-14 11:18 | disposition home or self-care (01) | DRG 641 ==
LOC: ED 18:08 → 2N 06-14 00:57 → INTOOBSV 06-14 00:57 → 2N 06-14 01:53

== ENCOUNTER 2023-07-03 15:11 | Inpatient (IN) ==
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
[2023-07-03 16:14] LABS: Hemoglobin 13.4 g/dl (12.0-16.0); Mean Corpuscular Hemoglobin 30.5 pg (25.0-34.0); Mean Corpuscular Hgb Conc 35.3 g/dL (32.0-36.0); Mean Corpuscular Volume 86.6 fL (80.0-100.0); Mean Platelet Volume 9.4 fL (9.4-12.4); Platelet Count 171 K/uL (130-400); RDW Coefficient of Variation 13.1 % (11.5-14.5); RDW Standard Deviation 41.5 fL (36.4-46.3); Red Blood Count 4.39 M/uL (4.20-5.40); White Blood Count 1.53 K/ul (4.8-10.8)
[2023-07-03 16:32] LABS: Albumin Level 4.1 gm/dl (3.4-5.0); BUN Creatinine Ratio 27.5 (10-20); Bilirubin,Total 1.7 mg/dl (0.2-1.0); Calcium 9.3 mg/dl (8.6-10.3); Creatinine Clr Calc Pharmacy 73.4 ml/min; Est GFR (African American) 115.2 ml/min; Est GFR (Non-African American) 99.4 ml/min; Globulin 2.1 gm/dl (2.5-4.0); Potassium 3.4 mmol/L (3.5-5.1); Total Protein 6.2 gm/dl (6.0-8.3)
[2023-07-03 16:34] LABS: Echinocytes 1+
[2023-07-03 16:35] LABS: Immature Granulocytes # (auto) 0.01 K/uL (0.01-0.20); Immature Granulocytes % (auto) 0.7 %; Lymphocytes # (auto) 0.61 K/uL (1.20-3.40); Lymphocytes % (auto) 39.9 %; Monocytes # (auto) 0.16 K/uL (0.11-0.59); Monocytes % (auto) 10.5 %; Neutrophils # (auto) 0.75 K/uL (1.40-6.50); Neutrophils % (auto) 48.9 %
--- NOTE | 2023-07-03 16:38 | CT Scan Report ---
CT head/brain wo con CLINICAL HISTORY: 53 years-old Female with fall. Acute head trauma status post fall TECHNIQUE: Multiple axial CT images of the head were obtained without contrast. A dose lowering tech nique was utilized adhering to the principles of ALARA. CT DOSE: 1026.36 mGy.cm COMPARISON: 06/13/2023 FINDINGS: No acute intracranial hemorrhage, midline shift, intracranial mass, hydrocephalus, territorial ischem ia or abnormal extra-axial collection. The calvarium is intact. The paranasal sinuses, mastoid air cells, and middle ear cavities are clear . IMPRESSION: No acute intracranial abnormality or calvarial fracture. ACT 112: Negative or not required by law. The above report was generated using voice recognition software. It may contain grammatical, syntax o r spelling errors. Electronically signed by: Tino Taylor M.D. 07/03/2023 4:35 PM
[2023-07-03 16:39] LABS: Prothrombin Time 11.2 Seconds (9.0-12.0); Troponin I High Sensitivity 18.6 pg/ml (0-14)
--- NOTE | 2023-07-03 16:41 | CT Scan Report ---
CT cervical spine wo con CLINICAL HISTORY: 53 years-old Female with Fall. Acute neck pain status post fall COMPARISON: Head CT of same day TECHNIQUE: Multiple axial CT images of the cervical spine were obtained without contrast. A dose low ering technique was utilized adhering to the principles of ALARA. FINDINGS: Straightening of the normal cervical lordosis. Mild multilevel intervertebral disc space na rrowing and spondylotic spurring with moderate to severe facet arthrosis. The cervical soft tissues a ppear unremarkable. The visualized lung apices appear clear. IMPRESSION: No acute cervical spine fracture or subluxation. ACT 112: Negative or not required by law. The above report was generated using voice recognition software. It may contain grammatical, syntax o r spelling errors. Electronically signed by: Tino Taylor M.D. 07/03/2023 4:40 PM
--- NOTE | 2023-07-03 19:54 | XRay Report ---
XR chest 1V portable HISTORY: 53 years-old Female fall acute chest trauma status post fall COMPARISON: 05/07/2023 TECHNIQUE: AP view of the chest FINDINGS: Cardiomediastinal and hilar silhouettes are within normal limits. No pneumothorax, pleural effusion o r pulmonary edema. Bones appear intact. IMPRESSION: No acute process. ACT 112: Negative or not required by law. The above report was generated using voice recognition software. It may contain grammatical, syntax o r spelling errors. Electronically signed by: Tino Taylor M.D. 07/03/2023 7:51 PM
--- NOTE | 2023-07-03 19:55 | XRay Report ---
XR hips JOSE 1v w pelvis HISTORY: 53 years-old Female fall acute pelvic pain status post fall COMPARISON: CT abdomen and pelvis 05/06/2023 TECHNIQUE: AP view of the pelvis with frog leg views of the hips FINDINGS: Unchanged appearance of the chronic right pelvic ring fracture deformities with severe degeneration a t the pubic symphysis. Mild osteoarthritis of the hips. No acute fracture, dislocation or avascular n ecrosis. Severe intervertebral disc space narrowing is again seen at L4-L5 and L5-S1. IMPRESSION: 1. No acute fracture or dislocation. 2. Unchanged appearance of the chronic right pelvic ring fracture deformities with severe degeneratio n of the pubic symphysis. ACT 112: Negative or not required by law. The above report was generated using voice recognition software. It may contain grammatical, syntax o r spelling errors. Electronically signed by: Tino Taylor M.D. 07/03/2023 7:54 PM
[2023-07-03 20:00] LABS: Adenovirus PCR Not Detected (NotDetected); Bordetella parapertussis PCR Not Detected (NotDetected); Bordetella pertussis PCR Not Detected (NotDetected); Chlamydia pneumoniae PCR Not Detected (NotDetected); Coronavirus 229E PCR Not Detected (NotDetected); Coronavirus CoV-2 (COVID19)PCR Not Detected (NotDetected); Coronavirus HKU1 PCR Not Detected (NotDetected); Coronavirus NL63 PCR Not Detected (NotDetected); Coronavirus OC43PCR Not Detected (NotDetected); Human Metapneumovirus PCR Not Detected (NotDetected); Influenza A PCR Not Detected (NotDetected); Influenza B PCR Not Detected (NotDetected); Mycoplasma pneumoniae PCR Not Detected (NotDetected); Parainfluenza Virus 1 PCR Not Detected (NotDetected); Parainfluenza Virus 2 PCR Not Detected (NotDetected); Parainfluenza Virus 3 PCR Not Detected (NotDetected); Parainfluenza Virus 4 PCR Not Detected (NotDetected); Respiratory Syncytial VirusPCR Not Detected (NotDetected); Rhinovirus/Enterovirus PCR Not Detected (NotDetected)
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
[2023-07-03 21:27] LABS: Thyroid Stimulating Hormone 4.049 uIu/ml (0.300-4.500)
[2023-07-03 21:40] LABS: Appearance Urine Cloudy (Clear); Bacteria Urine Automated None Seen (None Seen); Bilirubin Urine Negative (Negative); Blood Urine Negative (Negative); Cast Urine Automated 0-2 /lpf (0-2); Color Urine Yellow; Epithelial Cell Urine Auto 0-2 /hpf (0-2); Glucose Urine UA Negative (Negative); Ketones Urine Negative (Negative); Leukocyte Esterase Urine Negative (Negative); Nitrite Urine Negative (Negative); Protein Urine Negative (Negative); RBC Urine Automated 0-2 /hpf (0-2); Specific Gravity Urine 1.007 (1.000-1.030); Urobilinogen Urine Negative (Negative); WBC Urine Automated 0-5 /hpf (0-5); pH Urine 7.5 (4.5-7.5)
[2023-07-03 21:50] LABS: Amphetamines+Metham, Urine Neg (Neg); Barbiturates, Urine Neg (Neg); Benzodiazepine, Urine Neg (Neg); Cocaine, Urine Neg (Neg); MDMA (Ecstacy), Urine Neg (Neg); Marijuana, Urine Neg (Neg); Methadone, Urine Neg (Neg); Opiate, Urine Neg (Neg); Phencyclidine, Urine Neg (Neg)
[2023-07-03] MEDS ORDERED: ALUMINUM/MAGNESIUM SUSP 30 ML UDC PO PRN (22:48)
[2023-07-03] MEDS ORDERED: FLUTICASONE PROPIONATE NA SPR 16 GM BTL PRN (22:48)
[2023-07-03 23:33] LABS: BUN Creatinine Ratio 26.9 (10-20); Calcium 9.5 mg/dl (8.6-10.3); Creatinine Clr Calc Pharmacy 70.2 ml/min; Est GFR (African American) 116.3 ml/min; Est GFR (Non-African American) 100.4 ml/min; Potassium 3.2 mmol/L (3.5-5.1)
[2023-07-03] MEDS: POTASSIUM CHLORIDE CRTAB 20 MEQ TABCR PO STA (23:49)
[2023-07-03] MEDS: SODIUM CHLORIDE 0.9% 1,000 ML IV SCH (23:49)
[2023-07-03] MEDS: ENOXAPARIN INJ 40 MG/0.4 ML SYR SQ SCH (23:49)
[2023-07-04] MEDS: ACETAMINOPHEN 10MG/ML Custom 650 MG in EMPTY BAG 0 ML IV PRN (00:40)
--- OUTSIDE RECORDS SUMMARY | 2023-07-04 03:23 | External Medical Summary ---
Author Name Unknown Address Unknown Organization [id number]:[facility] [address] [place] [id number] Laboratory Report Ordering Provider Test Date Status DAO LEON 06/29/2023 14:51:36 Final Observation Date Value Abnormality Reference (Units ) Status Color of Urine by Auto 06/29/2023 14:51:36 Yellow Light Yellow, Yellow, Dark Yellow Final Clarity, Urine 06/29/2023 14:51:36 Clear Clear Final Glucose [Mass/volume] in Urine by Automated test strip 06/29/2023 14:51:36 Negative Negative (mg/dL) Final Bilirubin.total [Presence] in Urine by Automated test strip 06/29/2023 14:51:36 Negative Negative Final Ketones [Mass/volume] in Urine by Automated test strip 06/29/2023 14:51:36 Trace Abnormal Negative (mg/dL) Final Specific gravity, Urine 06/29/2023 14:51:36 1.015 1.003-1.030 Final Hemoglobin [Presence] in Urine by Automated test strip 06/29/2023 14:51:36 Negative Negative Final pH, Urine 06/29/2023 14:51:36 6.5 5.0-7.5 (Units) Final Protein [Mass/volume] in Urine by Automated test strip 06/29/2023 14:51:36 Negative Negative (mg/dL) Final Urobilinogen [Mass/volume] in Urine by Automated test strip 06/29/2023 14:51:36 0.2 0.2, 1.0 (mg/dL) Final Nitrite [Presence] in Urine by Automated test strip 06/29/2023 14:51:36 Negative Negative Final Leukocyte esterase [Presence] in Urine by Automated test strip 06/29/2023 14:51:36 Negative Negative Final RBC, Urine 06/29/2023 14:51:36 0-2 0-2 (/HPF) Final WBC, Urine 06/29/2023 14:51:36 0-2 0-2 (/HPF) Final Bacteria [#/area] in Urine sediment by Microscopy high power field 06/29/2023 14:51:36 0-25 0-25 (/HPF) Final Calcium oxalate crystals [#/area] in Urine sediment by Microscopy high power field 06/29/2023 14:51:36 1-4 Abnormal None (/HPF) Final Performing Location [facility] [place] [address] [facility] [address]
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
--- OUTSIDE RECORDS SUMMARY | 2023-07-04 03:24 | External Medical Summary ---
Author Name Unknown Address Unknown Organization K01:[facility] [place] [address] [facility] [address] Laboratory Report Ordering Provider Test Date Status DAO LEON 06/29/2023 14:51:36 Final Observation Date Value Abnormality Reference (Units ) Status Sodium, Urine 06/29/2023 14:51:36 <20 (mmol/ L) Final Potassium, Urine 06/29/2023 14:51:36 49.5 (mm ol/L) Final Chloride, Urine 06/29/2023 14:51:36 <20 (mmo l/L) Final Performing Location [facility] [place] [facility] [address] [facility] [address]
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
--- OUTSIDE RECORDS SUMMARY | 2023-07-04 03:24 | External Medical Summary ---
Author Name Unknown Address Unknown Organization K01[facility] [address] [place] [address] Laboratory Report Ordering Provider Test Date Status DAO LEON 06/29/2023 14:51:36 Final Observation Date Value Abnormality Reference (Units ) Status Osmolality 06/29/2023 14:51:36 261 Below low normal 27 8-305 (mOsm/kg) Final Performing Location [facility] [address] [place] [address]
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
--- OUTSIDE RECORDS SUMMARY | 2023-07-04 03:24 | External Medical Summary ---
Author Name Unknown Address Unknown Organization K01:[facility] [address] [place] [address] Laboratory Report Ordering Provider Test Date Status DAO LEON 06/29/2023 14:51:36 Final Observation Date Value Abnormality Reference (Units ) Status Osmolality, Urine 06/29/2023 14:51:36 413 50 -1200 (mOsm/kg) Final Performing Location [facility] - [address] [place] [address]
--- OUTSIDE RECORDS SUMMARY | 2023-07-04 03:24 | External Medical Summary ---
Author Name Unknown Address Unknown Organization K0G:[facility] - [address] [place] [address] Laboratory Report Ordering Provider Test Date Status DAO LEON 06/29/2023 14:51:36 Final Observation Date Value Abnormality Reference (Units ) Status BUN 06/29/2023 14:51:36 21 Above high normal 6-20 (mg/dL) Final Creatinine 06/29/2023 14:51:36 0.8 0.5-1.0 (mg/dL) Final Glomerular filtration rate/1.73 sq M.predicted [Volume Rate/Area] in Serum, Plasma or Blood by Creatinine-based formula (CKD-EPI) 06/29/2023 14:51:36 >90 >=60 (mL/min) Final eGFR is calculated based on the CKD-EPI 2020 equation Sodium 06/29/2023 14:51:36 124 Below low normal 135 -146 (mmol/L) Final Potassium 06/29/2023 14:51:36 4.2 3.5-5.1 (m mol/L) Final Cl 06/29/2023 14:51:36 85 Below low normal 98- 107 (mmol/L) Final CO2 06/29/2023 14:51:36 28 22-32 (mmo l/L) Final Anion gap 06/29/2023 14:51:36 11 7-15 (mmol /L) Final Glucose 06/29/2023 14:51:36 89 70-120 (mg /dL) Final Calcium 06/29/2023 14:51:36 9.4 8.4-10.2 ( mg/dL) Final Performing Location [facility] - [address] [place] [address]
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
--- OUTSIDE RECORDS SUMMARY | 2023-07-04 03:24 | External Medical Summary | Summary of Care ---
Author Name Unknown Organization [facility] Address [address] [place] [address] Phone [phone] Care Team Providers Care Acid Polymerization Operator Name Role Phone Hernando Maki MD Primary Care Provider + Reason for Visit * Reason Onset Date Comments Follow Up 06/29/2023 Encounter Details Date Type Department Care Team (Late st Contact Info) Description 06/29/2023 Telephone Psychology [facility] [address] [facility] [address] Alina Serrano, [facility] [address] [facility] [address] Follow Up Allergies Active Allergy Reactions Criticality Noted Date Comments [place]-Containing Products Edema airway High 08/15/2021 As per [...] 05/22/2023 Overview: psychogenic polydipsia, 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 [facility] History of multiple concussions 03/05/2023 History of [...] by Stefanie Paige 04/10 EEG WNL [facility] History of pituitary adenoma 02/09/2013 Lumbar disc [...] encounter Miscellaneous Notes * Telephone Encounter - Alina Serrano LCSW - 06/29/2023 9:15 AM EDT Therapist called Rachel as we had appointment scheduled for this date. Left message notifying her I am missing seeing her today and if she would like to reschedule to please call the scheduling line at [phone]. If she wants to call me directly to call [phone]. documented in this encounter Plan of Treatment Upcoming Encounters Date Type Department Care Team (Late st Contact Info) Description 06/29/2023 1:45 PM EDT Imaging Radiology [facility]st [facility] [address] [place] [address] 07/08/2023 8:40 AM EDT Office Visit [facility] [address] [place] [address] Wild Parsons CRNP [address] [place] [address] 09/09/2023 11:40 AM EDT Office Visit [facility] [address] [place] [address] Hernando Maki MD [address] [place] [address] 09/23/2023 9:00 AM EDT Telemedicine Psychiatry, [facility] [place] [address] [place] [address] Lara Hammond CRNP [address] [place] [phone] 11/09/2023 11:00 AM EDT Imaging Radiology, [place] [address] [facility] [place] [address] 02/02/2024 3:00 PM EST Office Visit Gynecology/Obstetrics [facility] [address] [place] [address] Vidhya Campo PA-C [address] [place] [address] Health Maintenance Due Date Last Done Comments Hepatitis B (1 of 3 - 19+ 3-dose series) 1989 HPV/Co-Test 02/29/2000 Colonoscopy 2015 Fecal Occult Blood Test 2015 Sigmoidoscopy 2015 COVID-19 Vaccine (2 2022-2 4 season) 2022 [...] filedocumented as of this encounter Care Teams Acid Polymerization Operator Relationship Specialty Start Date End Date Hernando Maki MD [address] [place] [address] PCP - General Family Medicine 05/17/14 documented as of this encounter
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
[2023-07-04 05:39] LABS: BUN Creatinine Ratio 26.7 (10-20); Calcium 9.1 mg/dl (8.6-10.3); Creatinine Clr Calc Pharmacy 78.4 ml/min; Est GFR (African American) 120.6 ml/min; Est GFR (Non-African American) 104.1 ml/min; Phosphorus 3.2 mg/dl (2.5-4.9); Potassium 3.6 mmol/L (3.5-5.1)
[2023-07-04] MEDS: POTASSIUM CHLORIDE CRTAB 20 MEQ TABCR PO SCH (08:30)
--- NOTE | 2023-07-04 09:11 | Electrocardiogram Report ---
Test Reason : Blood Pressure : / mmHG Vent. Rate : 054 BPM Atrial Rate : 054 BPM P-R Int : 208 ms QRS Dur : 086 ms QT Int : 474 ms P-R-T Axes : 074 059 035 degrees QTc Int : 449 ms Sinus bradycardia with Premature supraventricular complexes Otherwise normal ECG When compared with ECG of 14-JUN-2023 02:36, Premature supraventricular complexes are now Present Confirmed by Charles Osorio ([id number]) on 07/04/2023 9:11:17 AM Referred By: REFERRED SELF Confirmed By:Charles Osorio
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
[2023-07-04] MEDS: ONDANSETRON INJ 2 MG/ML 2 ML VIAL IV PRN (13:28)
--- NOTE | 2023-07-04 15:07 | Psychiatric Consultation ---
Date of Consultation July 04, 2023 Impression / Recommendations Impression 53 year old female who presented for hyponatremia. Psych was consulted for medication recommendations. (1) Drug-induced leukopenia: Plan Recommendations: Consider decreasing Haldol to 2.5 mg daily. It is not clear why the patient is on this medication at this time. There is no indication of a history of psychosis and she states that the medication gives her dry mouth. The patient also states that she is not taking the medication on a regular basis. Consider decreasing the Buspar to 5 mg BID. The patient states that she would be willing to have therapy. This would be the most beneficial treatment for her, considering her past history of non compliance with treatment; developing a trust relationship with a therapist might help with compliance. Psych History Identifying Data 53 year old female who presents with hyponatremia. Psych was consulted for medication recommendations Chief Complaint "Haldol gives me dry mouth". History of Present Illness Patient is a 53 year old female who presents due to hyponatremia. She has a complicated psychiatric history that includes a questionable diagnosis of bipolar disorder, a reported history of anorexia nervosa (restricting type), alcohol dependence and likely borderline personality disorder. Collateral information from previous notes reports that she has a long history of non compliance with treatment and reporting that any medications she is prescribed "don't work". She told me that she hasn't been taking the haldol recently because it causes dry mouth. She says that the buspar that she has been taking helps somewhat. At the time of the interview, the patient denied suicidal or homicidal ideation and showed no signs of marisela or psychosis. She did say that she is not in therapy but would be willing to try therapy. Considering her history, therapy would likely be the most beneficial thing that could be done for her. Allergies Allergy/AdvReac Type Severity Reaction Status Date / Time latex Allergy Intermediate Rash Verified 07/03/23 15:56 peanut Allergy Intermediate EDEMA/RASH Verified 07/03/23 15:56 wheat Allergy Intermediate CELIAC Verified 07/03/23 15:56 DISEASE escitalopram AdvReac Severe Seizure Verified 07/03/23 15:56 oxycodone AdvReac Severe Seizure Verified 07/03/23 15:56 acetaminophen AdvReac Intermediate Vomiting Verified 07/03/23 15:56 bupropion [From Wellbutrin] AdvReac Intermediate VISUAL Verified 07/03/23 15:56 DISTURBANCE Home Medications Medication Instructions Recorded Confirmed Type fluticasone propionate 50 2 spray intranasal QAM PRN 05/07/23 07/03/23 History mcg/actuation nasal Congestion spray,suspension haloperidol 5 mg tablet 5 mg PO HS #30 tabs 05/10/23 07/03/23 Rx potassium chloride 10 mEq 10 meq PO BID #60 tabs 05/10/23 07/03/23 Rx tablet,extended release(part/cryst) buspirone 7.5 mg tablet 7.5 mg PO BID 06/13/23 07/03/23 History Patient History Medical History Pelvic fracture Lumbar disc disease No chronic diseases present Surgical History Status post endovenous radiofrequency ablation (RFA) of saphenous vein Inguinal hernia No significant past surgical history Family History Mother Breast cancer Social History Smoking Status: Former smoker Hx Alcohol Use: No Hx Substance Use: No Preferred Language: Georgian Communication Ability: Effective [employer]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 Beliefs That Will Affect Care: None Current Living Situation: Alone Current Living Situation Comment: doesn't live in a great neighborhood Other Information That Helps Us Care for You: No Feels Safe at Home: Yes Safety Concerns: Feels Safe At This Time Assistive Devices: None Physical Exam Psychiatric: Orientation: alert and oriented x 3 Apperance: appropriately groomed and appeared stated age Eye Contact: + fair eye contact Motor Behavior: no abnormal motor movements Speech: normal rate/rhythm/volume of speech Affect: + constricted affect Mood: + dysphoric mood Thought Process: + concrete thought process Thought Content: + cognitive distortions Suicidal Thoughts: denies suicidal thoughts Homicidal Thoughts: denies homicidal thoughts Hallucinations: no auditory hallucinations and no visual hallucinations Cognition: recent memory grossly intact and language grossly intact Estimated Intelligence: average estimated intelligence Insight: + poor insight Judgment: + limited judgement Vital Signs (Past 24 Hours): Last Vital Signs Temp 36.4 C L 07/04/23 11:27 Pulse 61 07/04/23 11:27 Resp 18 07/04/23 11:27 BP 120/81 07/04/23 11:27 Pulse Ox 96 07/04/23 11:27 O2 Del Method Room Air 07/04/23 11:27 Results & Data (PSY) Medications Administered Enoxaparin Sodium (Enoxaparin Inj 40 Mg/0.4 Ml Syr) 40 mg SQ Q24H [facility] Stop: 08/02/23 22:59 Last Admin: 07/03/23 23:49 Dose: 40 mg Documented By: CORRIE Sodium Chloride (Nss) 1,000 mls @ 60 mls/hr IV .[id number] ANDRE Stop: 08/02/23 23:14 Last Infusion: 07/04/23 00:42 Dose: 0 mls/hr Documented By: Admin: 07/03/23 23:49 Dose: 60 mls/hr Documented By: CORRIE Acetaminophen 650 mg/ EMPTY (BAG) 65 mls @ 260 mls/hr IV Q8H PRN PRN Reason: pain/fever Stop: 08/02/23 23:56 Last Admin: 07/04/23 13:28 Dose: 260 mls/hr Documented By: Infusion: 07/04/23 01:00 Dose: Infused Documented By: Admin: 07/04/23 00:40 Dose: 260 mls/hr Documented By: CORRIE Ondansetron HCl (Ondansetron Inj 2 Mg/Ml 2 Ml Vial) 4 mg IV Q6H PRN PRN Reason: Nausea Stop: 08/02/23 22:47 Last Admin: 07/04/23 13:28 Dose: 4 mg Documented By: NEAL Potassium Chloride (Potassium Chloride Crtab 20 Meq Tabcr) 20 meq PO BIDM ANDRE Stop: 08/03/23 07:59 Last Admin: 07/04/23 08:30 Dose: 20 meq Documented By: NE[place] [address] IN/OBS CONSULT LVL 2,35M Patient Type New Medical Decision Making Moderate Complexity Diagnoses Drug-induced leukopenia D70.2
--- NOTE | 2023-07-04 15:12 | Hospitalist Progress Note ---
Date of Service July 04, 2023 Assessment & Plan (1) Acute hyponatremia: (2) Acute metabolic encephalopathy: (3) Psychogenic polydipsia: (4) Concussion: (5) Neutropenia: (6) Chronic leukopenia: (7) Drug-induced leukopenia: (8) Adjustment disorder with mixed anxiety and depressed mood: (9) Hypokalemia: Plan 53-year-old female with depression, leukopenia, etc. Presenting with fall, confusion, hyponatremia. 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 Sodium increased to 130 Nephrology consulted Continue IV fluids Repeat sodium at 1800 Neutropenia In the setting of Haldol use History of depression Psych consulted Monitor CBC Status post fall CT head no acute process Check thoracic and lumbar spine x-ray Check bilateral hip x-ray PT and OT evaluation DVT prophylaxis SCDs plan of care discussed with patient in detail and at length all questions answered she is understanding, agreeable, comfortable with the plan of care Admission and Anticipated Discharge Date Admission Date: July 03, 2023 Subjective Follow-up for hyponatremia, etc. Seen resting in bed, sleeping but easily awakened States that she feels okay overall Reporting low back pain And bilateral hip pain No leg weakness or numbness Has mild headache, no change with vision, nausea vomiting No chest pain, palpitations, dizziness, shortness of breath No other new symptoms Review of Systems Review of Systems: all noted and negative except for above Physical Exam Physical Exam: General- oriented x 3, not in distress, speaks in sentences with no effort or accessory muscle use Eyes- anicteric Neck- no JVD Lungs- clear breath sounds bilaterally, No crackles or wheezes Heart- normal rate, regular rhythm; no murmurs Abdomen- normal bowel sounds, nondistended, soft, No tenderness Extremities- no pretibial edema, no calf tenderness Back-no hematoma, erythema, tenderness Neuro- alert, oriented x 3; no gross focal neurologic deficits Skin- warm & dry Results & Data Results & Data Vital Signs (Past 12 Hours) Vital Signs Temp Pulse Resp BP BP Pulse Ox O2 Del Method 07/04/23 11:27 36.4 C L 61 18 120/81 96 Room Air 07/04/23 07:34 36.3 C L 57 L 17 119/80 99 Room Air 07/04/23 03:56 36.4 C L 52 L 16 128/83 100 Room Air all noted and reviewed including below
--- NOTE | 2023-07-04 16:25 | XRay Report ---
XR lumbar spine 2-3V, XR thoracic spine 3V routine HISTORY: 53 years-old Female pain, s/p fall, r/o fracture acute pain in the mid to low back status p ost fall COMPARISON: CTA chest, CT abdomen and pelvis 05/06/2023 TECHNIQUE: 3 views of the thoracic spine with 3 views of the lumbar spine FINDINGS: LUMBAR: Moderate L4-L5 and severe L5-S1 intervertebral disc space narrowing redemonstrated. Mildly demineral ized appearance of the bones. No acute fracture or subluxation identified. Unremarkable soft tissues. THORACIC: No acute fracture or subluxation identified. Mild multilevel spondylitic spurring and facet arthrosis . Mild chronic T9 compression deformity. IMPRESSION: No acute fracture or subluxation identified by radiography. ACT 112: Negative or not required by law. The above report was generated using voice recognition software. It may contain grammatical, syntax o r spelling errors. Electronically signed by: Tino Taylor M.D. 07/04/2023 4:22 PM
[2023-07-04] MEDS: ACETAMINOPHEN 325 MG TAB PO PRN (17:22)
[2023-07-04] MEDS: haloperidoL 1 MG TAB PO SCH (20:32)
[2023-07-04] MEDS: busPIRone 5 MG TAB PO SCH (20:32)
[2023-07-05 08:05] LABS: BUN Creatinine Ratio 30.1 (10-20); Calcium 9.1 mg/dl (8.6-10.3); Creatinine Clr Calc Pharmacy 50.6 ml/min; Est GFR (African American) 81.3 ml/min; Est GFR (Non-African American) 70.2 ml/min; Potassium 4.6 mmol/L (3.5-5.1)
--- NOTE | 2023-07-05 08:21 | Nephrology Progress Note ---
Date of Service July 05, 2023 Assessment & Plan (1) Acute hyponatremia: Plan: chronic hyponatremia w/ OP level of 124 last week > and at that time w/ atypical parameters (for her) suggesting mild dehydration/volume depletion. Pt has hx of chronic hyponatremia from psychogenic polydipsia. sNa 125 on presentation to hospital with uOsm 256, sOsm 261, Arnel 46, so not her classic polydipsia profile She is also now on Haloperidol which can cause hyponatremia and dose has been lowered since arrival Also w/ ongoing back, hip pain which can increase ADH release Difficult to parse cause of hyponatremia currently but suspect euvolemic hyponatremia -strict I/O needed, joshua UOP measure -encourage protein intake -fluid limit 1.5 L, tightened given stalled sodium -repeat hyponatremia labs this am > orders in ; these are most c/w volume depletion > will give NS 1L ON and repeat labs in AM -held K supplements for now >daily bmp is ok -continue to avoid nsaids in pain control Care coordinated with Dr Brennan regarding hyponatremia workup, care today, pain mgt suggestions; we are in agreement. NEPH D/C recs (preliminary/pls do not act on these yet) -d/c w/ 1.5L FR to start -d/c w/ encouragement to take in 80-100 gm dietary protein daily -d/c on K 20 mEq daily not bid -check bmp, urine osms, serum osms, urine electrolytes at PCP f/u visit w/in one week of d/c -also needs hospital d/c visit w/ Dr Odom (her OP financial assistance advisor) 2 wks after d/c w/ same labs as for PCP visit to be ordered by neph nurse Admission and Anticipated Discharge Date Admission Date: July 03, 2023 Results & Data Vital Signs (Past 12 Hours) Vital Signs Temp Pulse Pulse Resp BP BP Pulse Ox 07/05/23 07:39 36.4 C L 57 L 16 134/86 98 07/05/23 03:52 36.6 C 60 16 121/78 98 07/04/23 23:37 37.0 C 67 16 113/74 97 07/04/23 21:50 61 07/04/23 20:35 O2 Del Method 07/05/23 07:39 Room Air 07/05/23 03:52 Room Air 07/04/23 23:37 Room Air 07/04/23 21:50 07/04/23 20:35 Room Air Laboratory Results 07/03/23 15:50 07/05/23 07:18
[2023-07-05 10:05] LABS: Basophils # (auto) 0.02 K/uL (0.00-0.20); Basophils % (auto) 0.8 %; Hematocrit (blood only) 40.4 % (37.0-47.0); Hemoglobin 14.1 g/dl (12.0-16.0); Lymphocytes # (auto) 0.86 K/uL (1.20-3.40); Lymphocytes % (auto) 34.3 %; Mean Corpuscular Hemoglobin 30.8 pg (25.0-34.0); Mean Corpuscular Hgb Conc 34.9 g/dL (32.0-36.0); Mean Corpuscular Volume 88.2 fL (80.0-100.0); Mean Platelet Volume 10.2 fL (9.4-12.4); Monocytes # (auto) 0.24 K/uL (0.11-0.59); Monocytes % (auto) 9.6 %; Neutrophils # (auto) 1.39 K/uL (1.40-6.50); Neutrophils % (auto) 55.3 %; Platelet Count 179 K/uL (130-400); RDW Coefficient of Variation 13.5 % (11.5-14.5); RDW Standard Deviation 43.8 fL (36.4-46.3); Red Blood Count 4.58 M/uL (4.20-5.40); White Blood Count 2.51 K/ul (4.8-10.8)
[2023-07-05 11:41] LABS: Urine Potassium 43.4 mmol/L
--- NOTE | 2023-07-05 16:16 | Hospitalist Progress Note ---
Date of Service July 05, 2023 Assessment & Plan (1) Acute hyponatremia: (2) Acute metabolic encephalopathy: (3) Psychogenic polydipsia: (4) Concussion: (5) Neutropenia: (6) Chronic leukopenia: (7) Drug-induced leukopenia: (8) Adjustment disorder with mixed anxiety and depressed mood: (9) Hypokalemia: Plan 53-year-old female with depression, leukopenia, etc. Presenting with fall, confusion, hyponatremia. 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 Sodium increased to 130 Nephrology consulted Continue IV fluids Repeat sodium at 1800 07/04 Na 125--> 128--> 130-->128 Fluid restriction 1.5 L repeat Na tomorrow Neutropenia In the setting of Haldol use History of depression Psych consulted Monitor CBC 07/04 ANC improving Haldol, Buspirone decreased monitor Status post fall CT head no acute process thoracic and lumbar spine x-ray: no acute fracture bilateral hip x-ray: no acute fracture PT and OT evaluation Lidoderm patch Ice pack DVT prophylaxis SCDs anticipate d/c home when medically stable plan of care discussed with patient in detail and at length all questions answered she is understanding, agreeable, comfortable with the plan of care Admission and Anticipated Discharge Date Admission Date: July 03, 2023 Subjective ff up for hyponatremia, etc seen resting in bed, comfortable patient's friend at bedside states she feels fine overall has some back pain no chest pain, dyspnea, palpitations, dizziness no abdominal pain, nausea/vomiting, etc eager to go home Review of Systems Review of Systems: all noted and negative except for above Physical Exam Physical Exam: General- oriented x 2, not in distress, speaks in sentences with no effort or accessory muscle use Eyes- anicteric Neck- no JVD Lungs- clear breath sounds bilaterally, no crackles/wheezing Heart- normal rate, regular rhythm; no murmurs Abdomen- normal bowel sounds, nondistended, soft, no tenderness Extremities- no pretibial edema, no calf tenderness Neuro- alert, oriented x 3; no gross focal neurologic deficits Skin- warm & dry Results & Data Results & Data Vital Signs (Past 12 Hours) Vital Signs Temp Pulse Pulse Resp BP BP Pulse Ox 07/05/23 11:28 36.3 C L 61 17 111/71 98 07/05/23 09:00 53 L 07/05/23 07:39 36.4 C L 57 L 16 134/86 98 O2 Del Method 07/05/23 11:28 Room Air 07/05/23 09:00 07/05/23 07:39 Room Air all noted and reviewed including below
[2023-07-05] MEDS: SODIUM CHLORIDE 0.9% 1,000 ML IV SCH (17:19)
[2023-07-06 06:45] LABS: Basophils # (auto) 0.01 K/uL (0.00-0.20); Basophils % (auto) 0.5 %; Hematocrit (blood only) 35.9 % (37.0-47.0); Hemoglobin 12.6 g/dl (12.0-16.0); Lymphocytes # (auto) 0.94 K/uL (1.20-3.40); Lymphocytes % (auto) 42.7 %; Mean Corpuscular Hemoglobin 30.9 pg (25.0-34.0); Mean Corpuscular Hgb Conc 35.1 g/dL (32.0-36.0); Mean Platelet Volume 9.6 fL (9.4-12.4); Monocytes # (auto) 0.21 K/uL (0.11-0.59); Monocytes % (auto) 9.5 %; Neutrophils # (auto) 1.04 K/uL (1.40-6.50); Neutrophils % (auto) 47.3 %; Platelet Count 148 K/uL (130-400); RDW Coefficient of Variation 13.5 % (11.5-14.5); RDW Standard Deviation 44.1 fL (36.4-46.3); Red Blood Count 4.08 M/uL (4.20-5.40)
[2023-07-06 06:59] LABS: BUN Creatinine Ratio 38.4 (10-20); Calcium 8.4 mg/dl (8.6-10.3); Creatinine Clr Calc Pharmacy 58.3 ml/min; Est GFR (African American) 89.4 ml/min; Est GFR (Non-African American) 77.1 ml/min; Potassium 4.1 mmol/L (3.5-5.1)
--- NOTE | 2023-07-06 14:07 | Nephrology Progress Note ---
Date of Service July 06, 2023 Assessment & Plan (1) Acute hyponatremia: Plan: chronic hyponatremia w/ OP level of 124 last week > and at that time w/ atypical parameters (for her) suggesting mild dehydration/volume depletion. Pt has hx of chronic hyponatremia from psychogenic polydipsia. sNa 125 on presentation to hospital with uOsm 256, sOsm 261, Arnel 46, so not her classic polydipsia profile She is also now on Haloperidol which can cause hyponatremia and dose has been lowered since arrival Also w/ ongoing back, hip pain which can increase ADH release Difficult to parse cause of hyponatremia currently but as of 07/04, pt w/ hypovolemic hyponatremia, w/ good response to NS -strict I/O needed, joshua UOP measure -encourage protein intake -fluid limit > will liberalize to 2L daily -held K supplements for now >daily bmp is ok -continue to avoid nsaids in pain control Care coordinated with Dr Brennan regarding hyponatremia workup, care today, pain mgt suggestions; we are in agreement. NEPH D/C recs -d/c w/ 2L FR to start -d/c w/ encouragement to take in 80-100 gm dietary protein daily -d/c on K 20 mEq daily not bid -check bmp, urine osms, serum osms, urine electrolytes at PCP f/u visit w/in one week of d/c -also needs hospital d/c visit w/ Dr Odom (her OP guest services coordinator) 2 wks after d/c w/ same labs as for PCP visit to be ordered by neph nurse Admission and Anticipated Discharge Date Admission Date: July 03, 2023 Subjective seen on AM rounds. ongoing back pain. no sob, no n/v. states slightly dizzy w/ standing Review of Systems 2 Review of Systems: All systems reviewed & are unremarkable except as noted in Subjective Physical Exam 2 Constitutional: well developed, + cachectic and + frail appearing; no acute distress Eyes: EOM intact bilaterally ENMT: Ears: no external ear abnormality Nose: no external nose abnormality Mouth: + dry oral mucous membranes Neck: no nuchal rigidity Respiratory: normal respiratory effort Auscultation: + diminished lung sounds Cardiovascular: RRR, no murmur, no edema Gastrointestinal (Abdomen): Inspection/Auscultation: normal bowel sounds P ercussion/Palpation: abdomen soft; abdomen nontender Musculoskeletal: Extremities: strength 5/5 throughout Skin: no rashes, warm and dry Neurologic: berman, fluent speech, no tremor Results & Data Vital Signs (Past 12 Hours) Vital Signs Temp Pulse Pulse Resp BP BP Pulse Ox 07/06/23 10:08 36.6 C 61 17 112/76 114/73 96 07/06/23 10:08 61 07/06/23 07:54 36.6 C 61 17 112/76 96 07/06/23 03:33 36.6 C 63 14 114/73 96 O2 Del Method 07/06/23 10:08 07/06/23 10:08 07/06/23 07:54 Room Air 07/06/23 03:33 Room Air Laboratory Results 07/06/23 06:06 07/06/23 06:06
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
[2023-07-08 12:12] LABS: Babesia microti DNA Not Detected (Not Detected)
== END 2023-07-06 13:30 | disposition home or self-care (01) | DRG 640 ==
LOC: ED 15:11 → 2S 20:57

== ENCOUNTER 2023-07-27 01:32 | Observation (INO) ==
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
[2023-07-27 02:23] LABS: iSTAT Creatinine 0.7 mg/dl (0.6-1.3); iSTAT Hemoglobin 10.9 g/dl (12.0-16.0); iSTAT Ionized Calcium 1.2 mmol/l (1.12-1.32); iSTAT Potassium 3.7 mmol/L (3.3-5.0)
[2023-07-27 02:42] LABS: Basophils # (auto) 0.01 K/uL (0.00-0.20); Basophils % (auto) 0.4 %; Hematocrit (blood only) 33.4 % (37.0-47.0); Hemoglobin 11.5 g/dl (12.0-16.0); Lymphocytes # (auto) 0.81 K/uL (1.20-3.40); Lymphocytes % (auto) 35.5 %; Mean Corpuscular Hemoglobin 31.4 pg (25.0-34.0); Mean Corpuscular Hgb Conc 34.4 g/dL (32.0-36.0); Mean Corpuscular Volume 91.3 fL (80.0-100.0); Mean Platelet Volume 9.5 fL (9.4-12.4); Monocytes # (auto) 0.21 K/uL (0.11-0.59); Monocytes % (auto) 9.2 %; Neutrophils # (auto) 1.25 K/uL (1.40-6.50); Neutrophils % (auto) 54.9 %; Platelet Count 201 K/uL (130-400); RDW Coefficient of Variation 14.9 % (11.5-14.5); RDW Standard Deviation 49.6 fL (36.4-46.3); Red Blood Count 3.66 M/uL (4.20-5.40); White Blood Count 2.28 K/ul (4.8-10.8)
[2023-07-27 02:50] LABS: Albumin Globulin Ratio 1.8 (0.9-2); Albumin Level 3.5 gm/dl (3.4-5.0); BUN Creatinine Ratio 40.9 (10-20); Bilirubin,Total 0.8 mg/dl (0.2-1.0); Calcium 8.6 mg/dl (8.6-10.3); Est GFR (African American) 116.9 ml/min; Est GFR (Non-African American) 100.9 ml/min; Potassium 3.7 mmol/L (3.5-5.1); Total Protein 5.5 gm/dl (6.0-8.3)
[2023-07-27 02:56] LABS: Troponin I High Sensitivity 24.3 pg/ml (0-14)
[2023-07-27 04:01] LABS: Appearance Urine Clear (Clear); Bilirubin Urine Negative (Negative); Blood Urine Negative (Negative); Color Urine Yellow; Glucose Urine UA Negative (Negative); Ketones Urine Negative (Negative); Leukocyte Esterase Urine Negative (Negative); Nitrite Urine Negative (Negative); Protein Urine Negative (Negative); Specific Gravity Urine 1.008 (1.000-1.030); Urobilinogen Urine Negative (Negative)
[2023-07-27] MEDS: SODIUM CHLORIDE 0.9% 1,000 ML IV ONE (04:07)
[2023-07-27] MEDS: ASPIRIN CHEW 324 MG PO STA (07:10)
--- NOTE | 2023-07-27 07:32 | XRay Report ---
XR chest 1V portable CLINICAL HISTORY: Chest pain. COMPARISON STUDY: Chest CT May 06, 2023. Chest radiograph July 03, 2023. FINDINGS: Lung volumes are normal. Lungs are clear. There is no pneumothorax or pleural effusion. Car diac size is normal. Mediastinal contours are normal. There is no evidence for pulmonary edema. IMPRESSION: No acute cardiopulmonary findings. ACT 112: Negative or not required by law. Electronically signed by: Eben Rey M.D. 07/27/2023 7:31 AM
--- NOTE | 2023-07-27 08:02 | History & Physical Report ---
Date of Service July 27, 2023 Assessment & Plan (1) Eating disorder: Plan: 53-year-old female with past medical history significant for pituitary adenoma, chronic rhinitis, varicose veins of lower extremity, lumbar disc disease, mood disorder, paranoia, food insecurity, history of multiple concussions, history of trauma, history of hyponatremia comes because of eating disorder, patient went to [facility] with her brother to get admitted for eating disorder but there is no bed available so it was advised to get admitted here and get transferred to [facility] when bed is available. Patient states she is eating only once daily. Denies any headache. No dizziness. No blurred vision. No runny nose or sore throat. No cough. No chest pain or shortness of breath. No nausea or vomiting. No abdominal pain. Normal bowel and bladder movements. Resting comfortably and hemodynamically stable. 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 She was discharged on Fluid restriction 2.5 L a day.Patient saw PCP on July 21, 2023. PCP notes " 1 week of anorexia. Patient had history of anorexia when she was age 14 because of a of a family member. In late teens and early 20s she was doing bingeing. She never received a formal treatment but her weight stabilized. And again since her mother she has increased stress and weight decreased from 136 pounds in February to now 103 pounds. Eating very little. Brother visits couple of times a week. Also has financial stress. Because of leukopenia Haldol was decreased to 2.5 mg in the hospital, BuSpar was decreased to 5 mg twice daily." Patient was advised to go to [facility] for eval and admission. Eating disorder went to [facility] peds but to get admitted but as there were no beds available came here to get admitted here and transfer to [facility] with bedside available consult psychiatry consult dietitian will monitor psychogenic polydipsia hyponatremia sodium 131 was recently in the hospital and at the time of discharge nephrology recommended 2 L fluid restriction, 80 to 100 g of protein daily, and potassium supplement 20 mg daily and follows outpatient will follow labs leukopenia neutropenia last admission Haldol and buspirone dose was reduced will follow labs mild elevation troponin asymptomatic we will follow serial cardiac enzymes mood disorder paranoia continue buspirone and Haldol DVT prophylaxis heparin subcu disposition med/telemetry full code History of Present Illness Chief Complaint: Eating disorder and hyponatremia Primary Care Provider: Hernando Maki MD 53-year-old female with past medical history significant for pituitary adenoma, chronic rhinitis, varicose veins of lower extremity, lumbar disc disease, mood disorder, paranoia, food insecurity, history of multiple concussions, history of trauma, history of hyponatremia comes because of eating disorder, patient went to [facility] with her brother to get admitted for eating disorder but there is no bed available so it was advised to get admitted here and get transferred to [facility] when bed is available. Patient states she is eating only once daily. Denies any headache. No dizziness. No blurred vision. No runny nose or sore throat. No cough. No chest pain or shortness of breath. No nausea or vomiting. No abdominal pain. Normal bowel and bladder movements. Resting comfortably and hemodynamically stable. 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 She was discharged on Fluid restriction 2.5 L a day.Patient saw PCP on July 21, 2023. PCP notes " 1 week of anorexia. Patient had history of anorexia when she was age 14 because of a of a family member. In late teens and early 20s she was doing bingeing. She never received a formal treatment but her weight stabilized. And again since her mother she has increased stress and weight decreased from 136 pounds in February to now 103 pounds. Eating very little. Brother visits couple of times a week. Also has financial stress. Because of leukopenia Haldol was decreased to 2.5 mg in the hospital, BuSpar was decreased to 5 mg twice daily." Patient was advised to go to [facility] for eval and admission. past medical history. As mentioned above Past surgical history. Ligation of oviducts. Repair of inguinal hernia. Vein ablation extremity. Social history. Lives alone. Former smoker. No alcohol use. No drug use. Family history. Mother had brain tumor. Breast cancer. Mental disorder. Father had mental disorder. Stomach cancer. Brother has mental disorder. Allergies Allergy/AdvReac Type Severity Reaction Status Date / Time latex Allergy Intermediate Rash Verified 07/03/23 15:56 peanut Allergy Intermediate EDEMA/RASH Verified 07/03/23 15:56 wheat Allergy Intermediate CELIAC Verified 07/03/23 15:56 DISEASE escitalopram AdvReac Severe Seizure Verified 07/03/23 15:56 oxycodone AdvReac Severe Seizure Verified 07/03/23 15:56 acetaminophen AdvReac Intermediate Vomiting Verified 07/03/23 15:56 bupropion [From Wellbutrin] AdvReac Intermediate VISUAL Verified 07/03/23 15:56 DISTURBANCE Home Medications Medication Instructions Recorded Confirmed Type fluticasone propionate 50 2 spray intranasal QAM PRN 05/07/23 07/27/23 History mcg/actuation nasal Congestion spray,suspension buspirone 7.5 mg tablet 5 mg (0.6667 x 7.5 mg) PO BID #0 07/06/23 07/27/23 Rx tabs haloperidol 5 mg tablet 2.5 mg (1/2 x 5 mg) PO HS #30 tabs 07/06/23 07/27/23 Rx potassium chloride 10 mEq 20 meq (2 x 10 mEq) PO DAILY #60 07/06/23 07/27/23 Rx tablet,extended release(part/cryst) tabs Past Med/Surg History Problem List (Updated 07/27/23 @ 08:16 by Ruddy Kirk MD) Eating disorder Elevated troponin (Acute) Leukopenia (Acute) Chest pain (Acute) Hypokalemia Acute metabolic encephalopathy Acute hyponatremia (Acute) Drug-induced leukopenia Chronic leukopenia Neutropenia Concussion Acute hyponatremia (Acute) Psychogenic polydipsia Pituitary adenoma Adjustment disorder with mixed anxiety and depressed mood Medical History Pelvic fracture Lumbar disc disease No chronic diseases present Surgical History Status post endovenous radiofrequency ablation (RFA) of saphenous vein Inguinal hernia No significant past surgical history Family History Mother Breast cancer Social History Smoking Status: Former smoker Hx Alcohol Use: No Hx Substance Use: No Preferred Language: [place] Communication Ability: Effective Wire Inserter Required: No Beliefs That Will Affect Care: None Current Living Situation: Alone Current Living Situation Comment: doesn't live in a great neighborhood Feels Safe at Home: Yes Assistive Devices: None Review of Systems Review of Systems: All systems reviewed & are unremarkable except as noted in HPI & below Physical Exam Physical Exam: General- Not in distress Head- atraumatic Eyes- PERRL. ENT- oropharynx clear Neck- supple, no JVD. Lungs- clear to auscultation no wheezing or crackles Heart- regular rate and rhythm; no murmur, no gallop. Abdomen- normal bowel sounds, soft, nontender, no distension. Extremities- no pretibial edema, no erythema seen. Neuro- alert, oriented PERRL, EOMI; no facial palsy; no dysarthria; Skin- warm & dry Results & Data Results & Data Vital Signs (Past 12 Hours) Vital Signs Temp Pulse Pulse Resp BP BP Pulse Ox 07/27/23 04:00 54 L 16 95/67 L 99 07/27/23 02:51 51 L 16 115/80 98 07/27/23 02:45 54 L 07/27/23 02:44 65 18 100 07/27/23 02:44 100 07/27/23 01:37 36.9 C 61 18 103/75 99 O2 Del Method 07/27/23 04:00 Room Air 07/27/23 02:51 Room Air 07/27/23 02:45 07/27/23 02:44 Room Air 07/27/23 02:44 Room Air 07/27/23 01:37 Room Air Diagnostic Findings Laboratory Results WBC 2.28 K/ul (4.8-10.8) L 07/27/23 02:08 RBC 3.66 M/uL (4.20-5.40) L 07/27/23 02:08 Hgb 11.5 g/dl (12.0-16.0) L 07/27/23 02:08 POC Hgb 10.9 g/dl (12.0-16.0) L 07/27/23 02:09 Hct 33.4 % (37.0-47.0) L 07/27/23 02:08 POC Hct 32 % (37-47) L 07/27/23 02:09 MCV 91.3 fL (80.0-100.0) 07/27/23 02:08 MCH 31.4 pg (25.0-34.0) 07/27/23 02:08 MCHC 34.4 g/dL (32.0-36.0) 07/27/23 02:08 RDW Std Deviation 49.6 fL (36.4-46.3) H 07/27/23 02:08 RDW Coeff of Emanuel 14.9 % (11.5-14.5) H 07/27/23 02:08 Plt Count 201 K/uL (130-400) 07/27/23 02:08 MPV 9.5 fL (9.4-12.4) 07/27/23 02:08 Immature Gran % (Auto) 0.0 % 07/27/23 02:08 Neut % (Auto) 54.9 % 07/27/23 02:08 Lymph % (Auto) 35.5 % 07/27/23 02:08 [place] % (Auto) 9.2 % 07/27/23 02:08 Eos % (Auto) 0.0 % 07/27/23 02:08 Baso % (Auto) 0.4 % 07/27/23 02:08 Neut # (Auto) 1.25 K/uL (1.40-6.50) L 07/27/23 02:08 Lymph # (Auto) 0.81 K/uL (1.20-3.40) L 07/27/23 02:08 [place] # (Auto) 0.21 K/uL (0.11-0.59) 07/27/23 02:08 Eos # (Auto) 0.00 K/uL (0.00-0.50) 07/27/23 02:08 Baso # (Auto) 0.01 K/uL (0.00-0.20) 07/27/23 02:08 Immature Gran # (Auto) 0.00 K/uL (0.01-0.20) L 07/27/23 02:08 POC Sodium 131 mmol/L (135-144) L 07/27/23 02:09 Sodium 131 mmol/L (136-145) L 07/27/23 02:08 POC Potassium 3.7 mmol/L (3.3-5.0) 07/27/23 02:09 Potassium 3.7 mmol/L (3.5-5.1) 07/27/23 02:08 POC Chloride 93 mmol/L (101-112) L 07/27/23 02:09 Chloride 98 mmol/L (98-107) 07/27/23 02:08 Carbon Dioxide 32 mmol/L (21-32) 07/27/23 02:08 POC Total CO2 28 mmol/L (24-31) 07/27/23 02:09 Anion Gap 1 (3-11) L 07/27/23 02:08 POC Anion Gap 14.0 mmol/L (16-25) L 07/27/23 02:09 POC BUN 25 mg/dl (7-18) H 07/27/23 02:09 BUN 27 mg/dl (6-23) H 07/27/23 02:08 Creatinine 0.66 mg/dl (0.6-1.2) 07/27/23 02:08 POC Creatinine 0.7 mg/dl (0.6-1.3) 07/27/23 02:09 Est Cr Clr Drug Dosing 80.0 ml/min 07/27/23 02:08 Est GFR ( Amer) 116.9 ml/min 07/27/23 02:08 Est GFR (Non-Af Amer) 100.9 ml/min 07/27/23 02:08 BUN/Creatinine Ratio 40.9 (10-20) H 07/27/23 02:08 Glucose 66 mg/dl (70-99(Fasting)) L 07/27/23 02:08 POC Glucose 86 mg/dl (70-99) 07/27/23 02:52 POC Glucose (other) 63 mg/dl (70-99) L* 07/27/23 02:09 Calcium 8.6 mg/dl (8.6-10.3) 07/27/23 02:08 POC Ioniz Calcium Vivek 1.20 mmol/l (1.12-1.32) 07/27/23 02:09 Magnesium 2.0 mg/dl (1.7-2.4) 07/27/23 02:08 Total Bilirubin 0.8 mg/dl (0.2-1.0) 07/27/23 02:08 AST 22 U/L (13-39) 07/27/23 02:08 ALT 19 U/L (7-52) 07/27/23 02:08 Alkaline Phosphatase 54 U/L (34-104) 07/27/23 02:08 Troponin I High Sens 24.3 pg/ml (0-14) H 07/27/23 02:08 Total Protein 5.5 gm/dl (6.0-8.3) L 07/27/23 02:08 Albumin 3.5 gm/dl (3.4-5.0) 07/27/23 02:08 Globulin 2.0 gm/dl (2.5-4.0) L 07/27/23 02:08 Albumin/Globulin Ratio 1.8 (0.9-2) 07/27/23 02:08 Lipase 47 U/L (11-82) 07/27/23 02:08 Urine Color Yellow 07/27/23 03:45 Urine Appearance Clear (Clear) 07/27/23 03:45 Urine pH 7.0 (4.5-7.5) 07/27/23 03:45 Ur Specific [place] 1.008 (1.000-1.030) 07/27/23 03:45 Urine Protein Negative (Negative) 07/27/23 03:45 Urine Glucose (UA) Negative (Negative) 07/27/23 03:45 Urine Ketones Negative (Negative) 07/27/23 03:45 Urine Blood Negative (Negative) 07/27/23 03:45 Urine Nitrite Negative (Negative) 07/27/23 03:45 Urine Bilirubin Negative (Negative) 07/27/23 03:45 Urine Urobilinogen Negative (Negative) 07/27/23 03:45 Ur Leukocyte Esterase Negative (Negative) 07/27/23 03:45 Impressions Chest X-Ray 07/27/23 02:21 XR chest 1V portable CLINICAL HISTORY: Chest pain. COMPARISON STUDY: Chest CT May 06, 2023. Chest radiograph July 03, 2023. FINDINGS: Lung volumes are normal. Lungs are clear. There is no pneumothorax or pleural effusion. Cardiac size is normal. Mediastinal contours are normal. There is no evidence for pulmonary edema. IMPRESSION: No acute cardiopulmonary findings. ACT 112: Negative or not required by law. Electronically signed by: Eben Rey M.D. 07/27/2023 7:31 AM Code Status & VTE Plan VTE Prophylaxis Plan VTE Prophylaxis will be ordered: Yes
[2023-07-27] MEDS ORDERED: NITROGLYCERIN SL 0.4 MG/TAB TAB SL PRN (09:29)
[2023-07-27] MEDS ORDERED: ACETAMINOPHEN 325 MG TAB PO PRN (09:29)
[2023-07-27] MEDS ORDERED: FLUTICASONE PROPIONATE NA SPR 16 GM BTL PRN (09:29)
[2023-07-27] MEDS: HEPARIN SOD 5,000 UNIT/0.5 ML VIAL SQ SCH (10:23)
[2023-07-27] MEDS: busPIRone 5 MG TAB PO SCH (10:23)
[2023-07-27] MEDS: POTASSIUM CHLORIDE CRTAB 20 MEQ TABCR PO SCH (10:23)
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
--- OUTSIDE RECORDS SUMMARY | 2023-07-27 11:42 | External Medical Summary | Summary of Care ---
Author Name Unknown Organization [facility] Address [address] [place] [address] Phone [phone] Care Team Providers Care Straight Slicing Machine Operator Name Role Phone Hernando Maki MD Primary Care Provider + Reason for Visit * Reason Comments Outpatient Testing Encounter Details Date Type Department Care Team (Late st Contact Info) Description 07/21/2023 11:40 AM EDT Laboratory Laboratory, [facility] [address] [place] [address] [facility] [address] [place] [address] Anorexia nervosa, restricting type; Hyponatremia Allergies Active Allergy Reactions Criticality Noted [...] 1 capful daily. 578 g 06/17/2023 Active lamoTRIgine 25 MG Oral Tablet (LaMICtal) Take 1 Tablet by mouth in the morning. 07/16/2023 Active documented as of this encounter (statuses as of 07/21/2023) Active Problems Problem Noted Date Diagnosed Date Problem related to housing a nd economic circumstances, unspecified 07/15/2023 Anorexia nervosa, restricting type 07/15/2023 Hyponatremia 05/22/2023 Overview: psychogenic polydipsia, admit/seizure '. [facility] History of multiple concussions 03/05/2023 History of major trauma 03/05/2023 Chronic rhinitis 03/05/2023 Mood disorder 03/05/2023 Paranoia 03/05/2023 Pituitary adenoma 01/26/2023 Overview: 2021 MRI brain WNL Food insecurity 01/25/2023 Overview: Per [facility] Protocol Varicose veins of right lower extremity with com plications 07/17/2021 Routine general medical exam ination at a health care facility 02/09/2013 Overview: psychogenic polydipsia -' admit seizure. Sees [facility]--Dwight Lee. Unsure who biological parents are. Raised by Stefanie Paige 04/10 EEG WNL [facility] History of pituitary adenoma 02/09/2013 Lumbar disc [...] Description 07/28/2023 3:20 PM EDT Office Visit [facility] [address] [place] [address] Hernando Maki MD [address] [place] [address] 08/03/2023 1:40 PM EDT Office Visit [facility] [address] [place] [address] Wild Parsons CRNP [address] [place] [address] 09/09/2023 11:40 AM EDT Office Visit [facility] [address] [place] [address] Hernando Maki MD [address] [place] [address] 09/23/2023 9:00 AM EDT Telemedicine Psychiatry, [facility] [address] [facility] [place] [address] Lara Hammond CRNP [address] [facility] [place] [phone] 11/09/2023 11:00 AM EDT Imaging Radiology, [place] [id number] [facility] [place] [address] 02/02/2024 3:00 PM EST Office Visit Gynecology/Obstetrics [facility] [address] [place] [address] Vidhya Campo PA-C [address] [place] [id number] Pending Results Name Type Priority Associated Diagnoses Date /Time BASIC METABOLIC PANEL Lab Routine Anorexia nervosa, restricting type Hyponatremia 07/21/2023 11:43 AM EDT Health Maintenance Due Date Last [...] as of this encounter Visit Diagnoses Diagnosis Anorexia nervosa, restricting type Anorexia nervosa Hyponatremia Hyposmolality and/or hyponatremia documented in this encounter Care Teams Straight Slicing Machine Operator Relationship Specialty Start Date End Date Hernando Maki MD [address] [place] [address] PCP - General Family Medicine 05/17/14 documented as of this encounter
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
--- OUTSIDE RECORDS SUMMARY | 2023-07-27 11:42 | External Medical Summary | Summary of Care ---
Author Name Unknown Organization [facility] Address [address] [place] [address] Phone [phone] Care Team Providers Care Substation Operator Helper Name Role Phone Hernando Maki MD Primary Care Provider + Reason for Visit * Reason Comments Re-Check 1 week return-has fo for employer Encounter Details Date Type Department Care Team (Late st Contact Info) Description 07/21/2023 10:40 AM EDT Office Visit Family Practice [facility] [address] [place] [address] Hernando Maki MD 132 [facility] [place] [address] Anorexia nervosa, restricting type*; Hyponatremia; Paranoia (HCC) Allergies Active Allergy Reactions Criticality Noted Date Comments [place]-Containing Products Edema airway High 08/15/2021 As per [...] Hyponatremia 05/22/2023 Overview: psychogenic polydipsia, 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 [facility] History of multiple concussions 03/05/2023 History [...] Overview: psychogenic polydipsia -'24 admit seizure. Sees [facility]--Dwight Lee. Unsure who biological parents are. Raised by Stefanie Paige 04/[address] [facility] History of pituitary adenoma 02/09/2013 Lumbar [...] Sign Reading Time Taken Comments Blood Pressure 108/80 07/21/2023 10:51 AM EDT Pulse 80 07/21/2023 10:51 AM EDT Temperature - - Respiratory Rate 18 07/21/2023 10:46 AM EDT Oxygen Saturation 98% 07/21/2023 10:46 AM EDT Inhaled Oxygen Concentration - - Weight 47.2 kg (104 lb) 07/21/2023 10:46 AM EDT Height 166.4 cm (5' 5.5") 07/21/2023 10:46 AM ED T Body Mass Index 17.04 07/21/2023 10:46 AM EDT documented in this encounter Progress Notes * Hernando Maki MD - 07/21/2023 10:59 AM EDT SUBJECTIVE: Rachel Paige is a 53 year old female here for Re-Check (1 week return-has form for employer ) . Here for 1 week f/u anorexia, new dx June 2023. Mult recent hospitalizations for hyponatremia. C/o feeling cold , fatigued. No fever/chills, cp, sob. Discussed case with patient's permission w./her brother Abdulaziz Paige today on her cell phone. From 07/15/23 OV " She had previously been admitted with hyponatremia and it had been determined that she was not eating much and was drinking quite a bit of water hence the hyponatremia. She was encouraged to eat more and was discharged home. At this point she [...] 103lb Now now. She is 5 ft 5-2", with a BMI of 16.97. She states [...] stress. 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 She sees [facility] Dwight Lee. Due to having decreased WBCs her Haldol was decreased from 5 mg to 2.5 mg in the hospital and BuSpar was decreased from 7.5-5 mg twice a day. She states she has not started the lower dose that she has not been able to to workman's to get these prescriptions yet. " 07/21/2023 07/21/2023 07/21/2023 BP: 108/80 117/77 123/82 BP Site: Left Arm Left Arm Left Arm BP Position: Standing Sitting Supine BP Cuff Size: Pediatric Pediatric Pediatric Pulse: 80 65 64 Resp: -- -- 18 SpO2: -- -- 98 % Weight: -- -- 47.2 kg (104 lb) Height: -- -- 1.664 m (5' 5.5") BMI 17.04 Physical: BP 108/80 (BP Site: Left Arm, BP Position: Standing, BP Cuff Size: Pediatric) | Pulse 80 | Resp 18 | Ht 1.664 m (5' 5.5") | Wt 47.2 kg (104 lb) | LMP (LMP Unknown) | SpO2 98% | BMI 17.04 kg/m | BSA1.48 m General-No apparent Distress Head, Eyes, Ears, Nose, Throat--Normocephalic, atraumatic Neck-Supple Lymph-no lymphadenopathy Lungs-Clear to Auscultation bilaterally Cardiovascular--Regular rate & Rhythm, +s1, s2, no murmur Abdomen-soft, nontender, nondistended + bowel sounds Extremities--no edema Neuro-alert & oriented x3 (F50.01) Anorexia nervosa, restricting type (primary encounter diagnosis) Plan: discussed options--inpatient is best option--rec she go to [facility] for eval/admission -work form completed-unable to work as planning for hospitalization -other option is outpatient medical wraparond if accepted -will need oil field caser, consider apply SSI (E87.1) Hyponatremia Plan: ely today 129 last week I spent a total of 40-54 minutes (exact time 44 mins) on the date of service in [...] Nursing Notes * Kenna Hale LPN - 07/21/2023 10:46 AM EDT The patient has been properly identified by confirmation of name and date of . Chief Complaint Patient presents with Re-Check 1 week return documented in this encounter Plan of Treatment Upcoming Encounters Date Type Department Care Team (Late st Contact Info) Description 07/28/2023 3:20 PM EDT Office Visit Family [facility] [address] [address] Hernando Maki MD [address] [place] [address] 08/03/2023 1:40 PM EDT Office Visit [facility] [address] [place] [address] Wild Parsons CRNP [address] [place] [address] 09/09/2023 11:40 AM EDT Office Visit [facility] [address] [place] [address] Hernando Maki MD 132 [facility] [place] [address] 09/23/2023 9:00 AM EDT Telemedicine Psychiatry, [facility] 200 [facility] [place] [address] Lara Hammond CRNP 200 [facility] [place] [phone] 11/09/2023 11:00 AM EDT Imaging Radiology, [place] [id number] [facility] [place] [address] 02/02/2024 3:00 PM EST Office Visit Gynecology/Obstetrics [facility] 132 [facility] [place] [address] Vidhya Campo PA-C 132 [facility] [place] [address] Pending Results Name Type Priority Associated Diagnoses Date /Time BASIC METABOLIC PANEL Lab Routine Anorexia nervosa, restricting type Hyponatremia 07/21/2023 11:43 AM EDT Scheduled Orders Name Type Priority Associated Diagnoses Orde r Schedule BASIC METABOLIC PANEL Lab Routine Anorexia nervosa, restricting type Hyponatremia Expected: 07/21/2023 (Approximate), Expires: 07/20/2024 Health Maintenance Due Date Last Done Comments Hepatitis B (1 of 3 - 19+ 3-dose series) 1989 HPV/Co-Test 02/29/2000 Colonoscopy 2015 Fecal Occult Blood Test 2015 Sigmoidoscopy 2015 COVID-19 Vaccine (2 - 2 4 season) 2022 06/27/2020 Depression, Most Recent [...] encounter Visit Diagnoses Diagnosis Anorexia nervosa, restricting type- Primary Anorexia nervosa Hyponatremia Hyposmolality and/or hyponatremia Paranoia (HCC) Delusional disorder documented in this encounter Care Teams Substation Operator Helper Relationship Specialty Start Date End Date Hernando Maki MD [address] [address] PCP - General Family Medicine 05/17/14 documented as of this encounter
--- OUTSIDE RECORDS SUMMARY | 2023-07-27 11:42 | External Medical Summary ---
Author Name Unknown Address Unknown Organization K0G:[facility]ATORY [facility] - [address] [place] [address] Laboratory Report Ordering Provider Test Date Status ARMANDO NEVAREZ 07/21/2023 11:43:28 Final Observation Date Value Abnormality Reference (Units ) Status BUN 07/21/2023 11:43:28 24 Above high normal 6-20 (mg/dL) Final Creatinine 07/21/2023 11:43:28 0.8 0.5-1.0 (mg/dL) Final Glomerular filtration rate/1.73 sq M.predicted [Volume Rate/Area] in Serum, Plasma or Blood by Creatinine-based formula (CKD-EPI) 07/21/2023 11:43:28 >90 >=60 (mL/min) Final eGFR is calculated based on the CKD-EPI 2020 equation Sodium 07/21/2023 11:43:28 129 Below low normal 135 -146 (mmol/L) Final Potassium 07/21/2023 11:43:28 4.3 3.5-5.1 (m mol/L) Final Cl 07/21/2023 11:43:28 91 Below low normal 98- 107 (mmol/L) Final CO2 07/21/2023 11:43:28 31 22-32 (mmo l/L) Final Anion gap 07/21/2023 11:43:28 7 7-15 (mmol /L) Final Glucose 07/21/2023 11:43:28 83 70-120 (mg /dL) Final Calcium 07/21/2023 11:43:28 9.2 8.4-10.2 ( mg/dL) Final Performing Location LABORATORY [facility] - [address] [place] [address]
--- OUTSIDE RECORDS SUMMARY | 2023-07-27 11:42 | External Medical Summary | Summary of Care ---
Author Name Unknown Organization [facility] Address [address] [place] [address] Phone [phone] Care Team Providers Care Assistant Professor Of Religion Name Role Phone Hernando Maki MD Primary Care Provider + Reason for Visit * Reason Onset Date Comments Appointment 07/09/2023 Encounter Details Date Type Department Care Team (Late st Contact Info) Description 07/09/2023 Telephone [facility] [address] [place] [address] Jose Odom MD 200 [facility] [place] [address] Appointment Allergies Active Allergy Reactions Criticality Noted Date Comments [place]-Containing Products Edema airway High 08/15/2021 As per [...] Hyponatremia 05/22/2023 Overview: psychogenic polydipsia, 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 Sees [place]--Dwight Lee. Unsure who biological parents are. Raised by Stefanie Paige 04/10 EEG WNL [facility] History of pituitary adenoma 02/09/2013 [...] encounter Miscellaneous Notes * Telephone Encounter - Cat Ponce OSA - 07/16/2023 2:04 PM EDT 07/16/23 Called patient, left message. Trying to get patient scheduled with Nephrology for a hospital discharge appointment with Dr. Odom. Please offer 08/18/[address] at [address] Odom for hospital discharge. Please let patient know to get labs done prior to appointment also. * Telephone Encounter - Cat Ponce OSA - 07/09/2023 11:11 AM EDT 07/09/23 Called patient, left message. Trying to get patient scheduled with Nephrology for a hospital discharge appointment with Dr. Odom. Please offer 08/18/23 or 09/09/23 at [address] Odom for hospital discharge. Please let patient know to get labs done prior to appointment also. My G message being sent out as well. documented in this encounter Plan of Treatment Upcoming Encounters Date Type Department Care Team (Late st Contact Info) Description 07/21/2023 10:40 AM EDT Office Visit [facility] [address] [address] Hernando Maki MD [address] [address] 08/03/2023 1:40 PM EDT Office Visit [facility] [address] [address] Wild Parsons CRNP [address] [address] 09/09/2023 11:40 AM EDT Office Visit [facility] [address] [place] [address] Hernando Maki MD [address] [place] [address] 09/23/2023 9:00 AM EDT Telemedicine Psychiatry, [facility] 200 [facility] [place] [address] Lara Hammond CRNP 200 [facility] [place] [phone] 11/09/2023 11:00 AM EDT Imaging Radiology, [facility] [address] [facility] [place] [address] 02/02/2024 3:00 PM EST Office Visit Gynecology/Obstetrics [facility] [address] [address] Vidhya Campo PA-C [address] [place] [address] Health Maintenance Due Date Last Done Comments [...] filedocumented as of this encounter Care Teams Assistant Professor Of Religion Relationship Specialty Start Date End Date Hernando Maki MD [address] [place] [address] PCP - General Family Medicine 05/17/14 documented as of this encounter
--- OUTSIDE RECORDS SUMMARY | 2023-07-27 11:43 | External Medical Summary ---
Author Name Unknown Address Unknown Organization K01:[facility] [address] [place] [address] Laboratory Report Ordering Provider Test Date Status ARMANDO NEVAREZ 07/15/2023 12:06:53 Final Observation Date Value Abnormality Reference (Units ) Status WBC, Total 07/15/2023 12:06:53 1.96 Below low normal 4. 00-10.80 (K/uL) Final RBC 07/15/2023 12:06:53 4.51 3.85-5.15 (M/uL) Final Hemoglobin 07/15/2023 12:06:53 14.0 12.0-15.3 (g/dL) Final Anemia reflex testing trigge rs on a HGB < 12.0 for Females and HGB < 13.0 for Males in accordance with the WHO Anemia Guidelines
Anemia reflex testing triggers on a HGB < 12.0 for Females and HGB < 13.0 for Males in accordance with the WHO Anemia Guidelines HCT 07/15/2023 12:06:53 41.2 36.0-45.2 (%) Final MCV 07/15/2023 12:06:53 91.4 81.5-97.5 (fL) Final MCH 07/15/2023 12:06:53 31.0 27.0-34.0 (pg) Final MCHC 07/15/2023 12:06:53 34.0 32.0-36.0 (g/dL) Final RDW 07/15/2023 12:06:53 13.8 11.5-15.5 (%) Final Platelets 07/15/2023 12:06:53 261 140-400 (K /uL) Final MPV 07/15/2023 12:06:53 9.7 6.6-11.1 ( fL) Final Nucleated erythrocytes/100 leukocytes [Ratio] in Blood by Automated count 07/15/2023 12:06:53 0 <=0 (/100 WBCs) [facility] Performing Location LAB[facility]ORY [facility] - [address] [facility] [address]
--- OUTSIDE RECORDS SUMMARY | 2023-07-27 11:43 | External Medical Summary | Summary of Care ---
Author Name Unknown Organization [facility] Address [address] [place] [address] Phone [phone] Care Team Providers Care Research Executive Name Role Phone Hernando Maki MD Primary Care Provider + Reason for Visit * Reason Comments Outpatient Testing Encounter Details Date Type Department Care Team (Late st Contact Info) Description 07/15/2023 12:10 PM EDT Laboratory Laboratory, [facility] [address] [place] [address] [facility] [address] [place] [address] Anorexia nervosa, restricting type Allergies Active Allergy Reactions Criticality Noted Date Comments [place]-Containing Products Edema airway High 08/15/2021 As per [...] Hyponatremia 05/22/2023 Overview: psychogenic polydipsia, admit/seizure '. [facility] History of multiple concussions 03/05/2023 [...] Raised by Stefanie Paige 04/10 EEG WNL [facility] History of pituitary adenoma 02/09/2013 [...] Description 07/21/2023 10:40 AM EDT Office Visit [facility] [address] [address] Hernando Maki MD [address] [place] [address] [address] 08/03/2023 1:40 PM EDT Office Visit [facility] [address] [address] Wild Parsons CRNP [address] [place] [address] 09/09/2023 11:40 AM EDT Office Visit [facility] [address] [address] Hernando Maki MD [address] [place] [address] 09/23/2023 9:00 AM EDT Telemedicine Psychiatry, [facility] 200 [facility] [place] [address] Lara Hammond CRNP 200 [facility] [place] [phone] 11/09/2023 11:00 AM EDT Imaging Radiology, [place] [phone] [facility] [place], [place] [address] 02/02/2024 3:00 PM EST Office Visit Gynecology/Obstetrics [facility] [address] [address] Vidhya Campo PA-C [address] [place] [address] Pending Results Name Type Priority Associated Diagnoses Date /Time CBC WITH WBC DIFFERENTIAL AND ANEMIA REFLEX WORKUP Lab Routine Anorexia nervosa, restricting type 07/15/2023 12:06 PM EDT ANEMIA CBC Lab Routine Anorexia nervosa, restricting type 07/15/2023 12:06 PM EDT DIFFERENTIAL, AUTOMATED Lab Routine Anorexia nervosa, restricting type 07/15/2023 12:06 PM EDT ANEMIA REFLEX CHEMISTRY HOLD Lab Routine Anorexia nervosa, restricting type 07/15/2023 12:06 PM EDT Health Maintenance Due Date Last [...] Diagnosis Anorexia nervosa, restricting type Anorexia nervosa documented in this encounter Care Teams Research Executive Relationship Specialty Start Date End Date Hernando Maki MD [address] [address] PCP - General Family Medicine 05/17/14 documented as of this encounter
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
--- OUTSIDE RECORDS SUMMARY | 2023-07-27 11:43 | External Medical Summary ---
Author Name Unknown Address Unknown Organization K01[place] [place] [address] [place] [address] Laboratory Report Ordering Provider Test Date Status ARMANDO NEVAREZ 07/15/2023 12:05:00 Final Observation Date Value Abnormality Reference (Units ) Status BUN 07/15/2023 12:05:00 15 6-20 (mg/dL) Final Creatinine 07/15/2023 12:05:00 0.8 0.5-1.0 (mg/dL) Final Glomerular filtration rate/1.73 sq M.predicted [Volume Rate/Area] in Serum, Plasma or Blood by Creatinine-based formula (CKD-EPI) 07/15/2023 12:05:00 >90 >=60 (mL/min) Final eGFR is calculated based on the CKD-EPI 2020 equation Sodium 07/15/2023 12:05:00 129 Below low normal 135 -146 (mmol/L) Final Potassium 07/15/2023 12:05:00 4.4 3.5-5.1 (m mol/L) Final Cl 07/15/2023 12:05:00 90 Below low normal 98- 107 (mmol/L) Final CO2 07/15/2023 12:05:00 27 22-32 (mmo l/L) Final Anion gap 07/15/2023 12:05:00 12 7-15 (mmol /L) Final Glucose 07/15/2023 12:05:00 81 70-120 (mg /dL) Final Calcium 07/15/2023 12:05:00 9.6 8.4-10.2 ( mg/dL) Final Performing Location [facility] [place] [address] [place] [address]
--- OUTSIDE RECORDS SUMMARY | 2023-07-27 11:43 | External Medical Summary ---
Author Name Unknown Address Unknown Organization K01:[facility] [place] [address] [facility] [address] Laboratory Report Ordering Provider Test Date Status ARMANDO NEVAREZ 07/15/2023 12:06:53 Final Observation Date Value Abnormality Reference (Units ) Status SYNC LEUKOCYTES IN BLOOD BY AUTOMATED COUNT 07/15/2023 12:06:53 1.96 Below low normal 4.00-10.80 (K/uL) Final Segs 07/15/2023 12:06:53 59.7 40.0-75.0 (%) Final Lymphs % 07/15/2023 12:06:53 31.1 18.0-42.0 (%) Final Monos 07/15/2023 12:06:53 8.7 1.0-11.0 (%) Final Eosinophils 07/15/2023 12:06:53 0.0 0.0-6.0 (%) Final Basos 07/15/2023 12:06:53 0.5 0.0-2.0 (%) Final Immature Granulocyte, Percent 07/15/2023 12:06:53 0.0 0.0-2.0 (%) Final Absolute Segs 07/15/2023 12:06:53 1.17 Below low normal 1.80-7.70 (K/uL) Final Lymphs, absolute 07/15/2023 12:06:53 0.61 Below low normal 1.00-4.80 (K/ul) Final Monos, Abs 07/15/2023 12:06:53 0.17 0.00-1.10 (K/uL) Final Eos, Abs 07/15/2023 12:06:53 0.00 0.00-0.70 (K/uL) Final Basos, Abs 07/15/2023 12:06:53 0.01 0.00-0.20 (K/uL) Final Immature Granulocytes, Number 07/15/2023 12:06:53 0.00 0.00-0.20 (K/uL) Final Performing Location [facility] [place] [address] [facility] [address]
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
--- OUTSIDE RECORDS SUMMARY | 2023-07-27 11:43 | External Medical Summary ---
Author Name Unknown Address Unknown Organization K[facility] [address] [place] [address] Laboratory Report Ordering Provider Test Date Status ARMANDO NEVAREZ 07/15/2023 12:05:00 Final Observation Date Value Abnormality Reference (Units ) Status Phosphate 07/15/2023 12:05:00 3.7 2.5-4.8 (m g/dL) Final Performing Location [facility] - [address] [place] [address]
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
--- OUTSIDE RECORDS SUMMARY | 2023-07-27 11:43 | External Medical Summary ---
Author Name Unknown Address Unknown Organization K01[facility] - [address] [place] [address] Laboratory Report Ordering Provider Test Date Status ARMANDO NEVAREZ 07/15/2023 12:05:00 Final Observation Date Value Abnormality Reference (Units ) Status Magnesium 07/15/2023 12:05:00 2.4 1.5-2.6 (m g/dL) Final Performing Location [facility] - [address] [place] [address]
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
[2023-07-27] MEDS: THIAMINE HCL 200 MG in SODIUM CHLORIDE 0.9% 50 ML IV SCH (11:44)
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
[2023-07-27 13:33] LABS: BUN Creatinine Ratio 36.4 (10-20); Calcium 8.8 mg/dl (8.6-10.3); Est GFR (African American) 124.1 ml/min; Est GFR (Non-African American) 107.1 ml/min; Potassium 4.2 mmol/L (3.5-5.1)
--- NOTE | 2023-07-27 14:11 | Communication Note ---
Date of Service: July 27, 2023 Patient seen and examined at bedside. She is comfortably lying in the bed; not in distress She is alert oriented x 3. Patient and her brother had gone to [facility] for possible admission for eating disorder as per recommendation by her primary care doctor. They came back to [place] and in [facility] as they did not have beds at the facility. 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 Her brother is concerned about her staggering gait and unsteadiness on her feet. On physical examination: Constitutional: Alert oriented x 3; not in distress. Respiratory: normal respiratory effort, lungs clear to auscultation, no wheeze, rales, rhonchi. Normal insp/exp effort, no accessory muscle use Cardiovascular: RRR, no murmur, no edema Vessels: no JVD or carotid bruit Chest: normal inspection of chest Abdomen: normal bowel sounds, soft, nontender, no hepatosplenomegaly Musculoskeletal: no cyanosis or clubbing, extremities motor strength 5/5 Skin: no rashes, warm and dry normal turgor Neurologic: PERRL, EOMI, accommodation nl, no face palsy, no dysarthria CN's II- XI intact bilaterally and moves all extremities Psychiatric: A+Ox3, flat affect Assessment/plan Hyponatremia likely secondary to psychogenic polydipsia Ambulatory dysfunction Sodium of 131 presently Fluid restriction of 1200 cc BMP daily PT OT evaluation. Empirically started on thiamine 200 mg IV every 8 hours. Continue till patient is hospitalized; plan to discharge on oral thiamine. Discussed with transfer center regarding transferring to [facility]. Transfer center recommends reaching out to psychiatric liaison as they do not handle psychiatric hospitalization. Discussed with psychiatric liaison; they recommend patient to be discharged once medically stable and then to drive to [facility]. No acute reason for psychiatric hospitalization at present time. Please note the above document was generated using voice recognition software. It may contain grammatical, syntax or spelling errors. Any formal questions or concerns about the content, text or information contained within the body of this dictation should be directly addressed to the provider for clarification
--- NOTE | 2023-07-27 14:18 | Psychiatric Consultation ---
Date of Consultation July 27, 2023 Impression / Recommendations Impression 53 yo woman with a history of anorexia in her teens, alcohol use disorder, possible history of bipolar disorder, and psychogenic polydipsia admitted medically for concern for lack of po intake and hyponatremia. Psychiatry consulted for recommendations related to eating disorder. Diagnostically presents as somewhat hypomanic, possible this is due to resolving hyperactive delirium from hyponatremia but sodium has improved and no evidence for confusion that would be typical with delirium. Suspect BPAD with recent rapid cycling since the of her mother. Sounds as though stress of her has lead to worsening mood symptoms for which has no current outpatient providers or significant supports apart from her brother who attempts to visit frequently and help encourage her to eat regular meals. Eating disorder possible but she describes lack of po intake more related to mood symptoms of lack of motivation and energy and due to physical symptoms of nausea. Certainly could be component of gastroparesis from prolonged restriction but in past has eaten well in inpatient setting without significant nausea or pain. Given concerns for lack of ability to meet her basic nutritional needs, i.e. hyponatremia on admission, she would likely meet 302 criteria if she changed her mind about voluntary inpatient psychiatric admission. Overall, I spent a total of 60 minutes with this case including review of chart records, review of labwork, review of EKG QTc, direct evaluation of the patient at bedside, counseling the patient, discussion of the patient with the Nurse and with the hospitalist provider, discussion with the psychiatric liason during clinical rounds and documentation in the electronic health record. (1) Unspecified mood [affective] disorder: (2) Psychogenic polydipsia: (3) Dietary restriction: Plan -Psychiatry to continue to follow -Plan for inpatient psychiatric admission once medically stable -She consents to trial of olanzapine 2.5mg HS tonight to help with mood stabilization, appetite, sedation. Reviewed side effects, QTc <500ms, Na+ within normal range. Psych History Identifying Data 53 yo woman with a history of anorexia in her teens, alcohol use disorder, possible BPD and possible bipolar disorder admitted medically for concern for lack of po intake and hyponatremia. Psychiatry consulted for recommendations related to eating disorder. Chief Complaint "I haven't been able to function, I can hardly even take care of my dogs anymore". History of Present Illness Rachel has previously been seen by the psychiatry consult service on multiple occasions due to presentations for hyponatremia, felt to be due to psychogenic polydipsia, and lack of po intake. During past assessments she has denied purposeful restriction and rather lack of po intake has seemed to be driven by possible delusions and disorganization vs delirium from hyponatremia. Today she denies purposeful restriction and rather reports lack of po intake due to persistent nausea which she recognizes is made worse by not eating. Then she will "binge" due to hunger but then feels sick and doesn't want to eat. She denies any episodes of purging. Agrees she likely drinks too much water, she isn't sure why. She reports family history of her father dying from stomach cancer and has previously wondered if she could have cancer causing her symptoms. Significant worsening in her functioning since her mother from brain cancer in April. Since then her mood has been cycling and she reports increased difficulty getting out of bed and caring for herself. She's been missing work and worries about being fired. 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 She isn't sure if she's ever experienced psychosis or marisela. Stopped taking haldol due to dry mouth side effects. She notes her brother was trying to get her treatment at [facility] eating disorder inpatient facility but there were no beds and "7 people in front of me" so she left AMA and knows her brother is upset because of this. She is willing to consider medication changes and willing for inpatient psychiatric treatment to help with her mood symptoms, poor functioning, poor po intake once medically stable. Allergies Allergy/AdvReac Type Severity Reaction Status Date / Time latex Allergy Intermediate Rash Verified 07/03/23 15:56 peanut Allergy Intermediate EDEMA/RASH Verified 07/03/23 15:56 wheat Allergy Intermediate CELIAC Verified 07/03/23 15:56 DISEASE escitalopram AdvReac Severe Seizure Verified 07/03/23 15:56 oxycodone AdvReac Severe Seizure Verified 07/03/23 15:56 acetaminophen AdvReac Intermediate Vomiting Verified 07/03/23 15:56 bupropion [From Wellbutrin] AdvReac Intermediate VISUAL Verified 07/03/23 15:56 DISTURBANCE Home Medications Medication Instructions Recorded Confirmed Type fluticasone propionate 50 2 spray intranasal QAM PRN 05/07/23 07/27/23 History mcg/actuation nasal Congestion spray,suspension buspirone 7.5 mg tablet 5 mg (0.6667 x 7.5 mg) PO BID #0 07/06/23 07/27/23 Rx tabs haloperidol 5 mg tablet 2.5 mg (1/2 x 5 mg) PO HS #30 tabs 07/06/23 07/27/23 Rx potassium chloride 10 mEq 20 meq (2 x 10 mEq) PO DAILY #60 07/06/23 07/27/23 Rx tablet,extended release(part/cryst) tabs Patient History Medical History Pelvic fracture Lumbar disc disease No chronic diseases present Surgical History Status post endovenous radiofrequency ablation (RFA) of saphenous vein Inguinal hernia No significant past surgical history Family History Mother Breast cancer Social History Smoking Status: Former smoker Hx Alcohol Use: No Hx Substance Use: No Preferred Language: Bruneian Communication Ability: Effective Knockout Man Required: No Beliefs That Will Affect Care: None Current Living Situation: Alone Current Living Situation Comment: doesn't live in a great neighborhood Feels Safe at Home: Yes Safety Concerns: Feels Safe At This Time Assistive Devices: None Physical Exam Psychiatric: Orientation: alert, oriented to person and oriented to place Apperance: appropriately dressed and + disheveled Eye Contact: good eye contact Motor Behavior: no abnormal motor movements Speech: + abnormal rate/rhythm/volume of speech (rapid) Affect: + labile affect Mood: + depressed mood, + anxious mood and + irritable mood Thought Process: + tangential thought process Thought Content: + preoccupation and reality based without delusions Suicidal Thoughts: denies suicidal thoughts Homicidal Thoughts: denies homicidal thoughts Hallucinations: no auditory hallucinations and no visual hallucinations Insight: + limited insight Judgment: + limited judgement Vital Signs (Past 24 Hours): Last Vital Signs Temp 37.0 C 07/27/23 10:44 Pulse 75 07/27/23 14:11 Resp 16 07/27/23 14:11 BP 127/89 07/27/23 14:11 Pulse Ox 98 07/27/23 14:11 O2 Del Method Room Air 07/27/23 14:11 Review of Systems All systems reviewed & are unremarkable except as noted in HPI & below (nausea, memory issues) Results & Data (PSY) Medications Administered Buspirone HCl (Buspirone 5 Mg Tab) 5 mg PO BID [facility] Stop: 08/26/23 09:28 Last Admin: 07/27/23 10:23 Dose: 5 mg Documented By: KILLIAN Heparin Sodium (Porcine) (Heparin Sod 5,000 Unit/0.5 Ml Vial) 5,000 units SQ Q12 ANDRE Stop: 08/26/23 09:28 Last Admin: 07/27/23 10:23 Dose: Not Given Documented By: KILLIAN Thiamine HCl 200 mg/ Sodium (Chloride) 52 mls @ 210 mls/hr IV Q8H [facility] Stop: 08/26/23 10:59 Last Infusion: 07/27/23 12:52 Dose: Infused Documented By: Admin: 07/27/23 11:44 Dose: 210 mls/hr Documented By: KILLIAN Potassium Chloride (Potassium Chloride Crtab 20 Meq Tabcr) 20 meq PO DAILY ANDRE Stop: 08/26/23 09:28 Last Admin: 07/27/23 10:23 Dose: 20 meq Documented By: KILLIAN Coding Level of Care Code 55832 IN/OBS CONSULT LVL 4,60M Diagnoses Unspecified mood [affective] disorder F39 Psychogenic polydipsia R63.1; F54 Dietary restriction Z71.3
[2023-07-27 15:58] LABS: Troponin I High Sensitivity 18.7 pg/ml (0-14)
--- NOTE | 2023-07-27 17:16 | Electrocardiogram Report ---
Test Reason : Blood Pressure : / mmHG Vent. Rate : 051 BPM Atrial Rate : 051 BPM P-R Int : 216 ms QRS Dur : 078 ms QT Int : 442 ms P-R-T Axes : 076 079 062 degrees QTc Int : 407 ms Sinus bradycardia with 1st degree A-V block Abnormal ECG When compared with ECG of 03-JUL-2023 15:21, Premature supraventricular complexes are no longer Present Confirmed by Chris Kay ([id number]) on 07/27/2023 5:16:10 PM Referred By: REFERRED SELF Confirmed By:Devon Kay
[2023-07-27] MEDS ORDERED: haloperidoL 0.5 MG TAB PO SCH (21:00)
[2023-07-27] MEDS: OLANZAPINE 2.5 MG TAB PO SCH (21:40)
[2023-07-28 05:56] LABS: Basophils # (auto) 0.02 K/uL (0.00-0.20); Basophils % (auto) 0.7 %; Hematocrit (blood only) 33.1 % (37.0-47.0); Hemoglobin 11.2 g/dl (12.0-16.0); Immature Granulocytes # (auto) 0.01 K/uL (0.01-0.20); Immature Granulocytes % (auto) 0.3 %; Lymphocytes % (auto) 40.7 %; Mean Corpuscular Hemoglobin 30.9 pg (25.0-34.0); Mean Corpuscular Hgb Conc 33.8 g/dL (32.0-36.0); Mean Corpuscular Volume 91.2 fL (80.0-100.0); Mean Platelet Volume 9.4 fL (9.4-12.4); Monocytes # (auto) 0.23 K/uL (0.11-0.59); Monocytes % (auto) 7.8 %; Neutrophils # (auto) 1.49 K/uL (1.40-6.50); Neutrophils % (auto) 50.5 %; Platelet Count 203 K/uL (130-400); RDW Coefficient of Variation 14.8 % (11.5-14.5); RDW Standard Deviation 49.5 fL (36.4-46.3); Red Blood Count 3.63 M/uL (4.20-5.40); White Blood Count 2.95 K/ul (4.8-10.8)
[2023-07-28 06:14] LABS: BUN Creatinine Ratio 34.9 (10-20); Calcium 8.4 mg/dl (8.6-10.3); Creatinine Clr Calc Pharmacy 61.4 ml/min; Est GFR (African American) 89.4 ml/min; Est GFR (Non-African American) 77.1 ml/min; Phosphorus 3.2 mg/dl (2.5-4.9); Potassium 3.9 mmol/L (3.5-5.1)
--- NOTE | 2023-07-28 11:28 | Psychiatric Progress Note ---
Date of Service July 28, 2023 Impression / Recommendations Impression 53 yo woman with a history of anorexia in her teens, alcohol use disorder, possible history of bipolar disorder, and psychogenic polydipsia admitted medically for concern for lack of po intake and hyponatremia. Psychiatry consulted for recommendations related to eating disorder. Diagnostically presents as somewhat hypomanic, possible this is due to resolving hyperactive delirium from hyponatremia but sodium has improved and no evidence for confusion that would be typical with delirium. Suspect BPAD with recent rapid cycling since the of her mother. Sounds as though stress of her has lead to worsening mood symptoms for which has no current outpatient providers or significant supports apart from her brother who attempts to visit frequently and help encourage her to eat regular meals. Eating disorder possible but she describes lack of po intake more related to mood symptoms of lack of motivation and energy and due to physical symptoms of nausea. Certainly could be component of gastroparesis from prolonged restriction but in past has eaten well in inpatient setting without significant nausea or pain. Given concerns for lack of ability to meet her basic nutritional needs, i.e. hyponatremia on admission, she would likely meet 302 criteria if she changed her mind about voluntary inpatient psychiatric admission. 07/28/2023: Less lability today, speech more normal rate, appears more depressed today. Remains agreeable to inpatient psychiatric treatment to help with psychogenic polydipsia, mood changes, poor intake. Eating her meals and no emesis, slight discomfort of being full but denies nausea. Now medically stable. She prefers to be placed at [facility] so will await bed availability. COVID test to be done. Overall, I spent a total of 45 minutes with this case including review of chart records, review of labwork, review of EKG QTc, direct evaluation of the patient at bedside, counseling the patient, discussion of the patient with the Nurse and with the hospitalist provider, discussion with the psychiatric liason during clinical rounds and documentation in the electronic health record. (1) Unspecified mood [affective] disorder: (2) Psychogenic polydipsia: (3) Dietary restriction: Plan -Now medically stable, awaiting inpatient psychiatric placement-she prefers [facility] -Continue olanzapine 2.5mg HS Interval History Identifying Information 53 yo woman with a history of anorexia in her teens, alcohol use disorder, possible BPD and possible bipolar disorder admitted medically for concern for lack of po intake and hyponatremia. Psychiatry consulted for recommendations related to eating disorder. Chief Complaint "I feel ok". Subjective Subjective Patient was seen & assessed and interval progress reviewed. States she meet with the hospitalist provider this morning and agrees with what he told her that "my mental illness was causing me to drink excessive amounts of water, leading to a decreased appetite and feelings of sickness". She tolerated the olanzapine, had some sedation last night but slept well. Patient has a history of being diagnosed with bipolar disorder by Dr. Tineo at [facility] psych clinic in the past and was previously on Prozac. She expresses concerns about overeating and the possibility of developing bulimia. She denies intentionally restricting food intake due to weight gain concerns but admits to feeling sick after eating, which has led to a pattern of avoiding food. Thinks she has lost 30 pounds and acknowledges the need to gain weight to reach a healthy point. Remains agreeable to inpatient treatment. Physical Exam Psychiatric Orientation: alert, oriented to person and oriented to place Apperance: appropriately dressed and + disheveled Eye Contact: good eye contact Motor Behavior: no abnormal motor movements Speech: normal rate/rhythm/volume of speech Affect: + constricted affect Mood: + depressed mood Thought Process: goal directed thought process Thought Content: reality based without delusions Suicidal Thoughts: denies suicidal thoughts Homicidal Thoughts: denies homicidal thoughts Hallucinations: no auditory hallucinations and no visual hallucinations Insight: + limited insight Judgment: + limited judgement Vital Signs (Past 24 Hours) Last Vital Signs Temp 36.6 C 07/28/23 10:58 Pulse 72 07/28/23 10:58 Resp 14 07/28/23 10:58 BP 110/77 07/28/23 10:58 Pulse Ox 98 07/28/23 10:58 O2 Del Method Room Air 07/28/23 10:58 Results & Data ([facility]) Laboratory Results Laboratory Results - last 24 hr 07/27/23 07/27/23 07/27/23 09:49 12:36 14:09 WBC RBC Hgb Hct MCV MCH MCHC RDW Std Deviation RDW Coeff of Emanuel Plt Count MPV Immature Gran % (Auto) Neut % (Auto) Lymph % (Auto) Craven % (Auto) Eos % (Auto) Baso % (Auto) Neut # (Auto) Lymph # (Auto) Craven # (Auto) Eos # (Auto) Baso # (Auto) Immature Gran # (Auto) Sodium 136 Potassium 4.2 Chloride 102 Carbon Dioxide 31 Anion Gap 3 BUN 20 Creatinine 0.55 L Est Cr Clr Drug Dosing 96.0 Est GFR ( Amer) 124.1 Est GFR (Non-Af Amer) 107.1 BUN/Creatinine Ratio 36.4 H Glucose 74 POC Glucose 120 H Calcium 8.8 Phosphorus Magnesium Troponin I High Sens 18.7 H Vitamin B12 552 07/27/23 07/28/23 07/28/23 21:10 02:12 05:25 WBC 2.95 L RBC 3.63 L Hgb 11.2 L Hct 33.1 L MCV 91.2 MCH 30.9 MCHC 33.8 RDW Std Deviation 49.5 H RDW Coeff of Emanuel 14.8 H Plt Count 203 MPV 9.4 Immature Gran % (Auto) 0.3 Neut % (Auto) 50.5 Lymph % (Auto) 40.7 Craven % (Auto) 7.8 Eos % (Auto) 0.0 Baso % (Auto) 0.7 Neut # (Auto) 1.49 Lymph # (Auto) 1.20 Craven # (Auto) 0.23 Eos # (Auto) 0.00 Baso # (Auto) 0.02 Immature Gran # (Auto) 0.01 Sodium 135 L Potassium 3.9 Chloride 103 Carbon Dioxide 29 Anion Gap 3 BUN 30 H Creatinine 0.86 D Est Cr Clr Drug Dosing 61.4 Est GFR ( Amer) 89.4 Est GFR (Non-Af Amer) 77.1 BUN/Creatinine Ratio 34.9 H Glucose 81 POC Glucose 85 Calcium 8.4 L Phosphorus 3.2 Magnesium 2.0 Troponin I High Sens 20.7 H Vitamin B12 07/28/23 07/28/23 05:50 09:51 WBC RBC Hgb Hct MCV MCH MCHC RDW Std Deviation RDW Coeff of Emanuel Plt Count MPV Immature Gran % (Auto) Neut % (Auto) Lymph % (Auto) Craven % (Auto) Eos % (Auto) Baso % (Auto) Neut # (Auto) Lymph # (Auto) Craven # (Auto) Eos # (Auto) Baso # (Auto) Immature Gran # (Auto) Sodium Potassium Chloride Carbon Dioxide Anion Gap BUN Creatinine Est Cr Clr Drug Dosing Est GFR ( Amer) Est GFR (Non-Af Amer) BUN/Creatinine Ratio Glucose POC Glucose 81 139 H Calcium Phosphorus Magnesium Troponin I High Sens Vitamin B12 Current Inpatient Medications Current Inpatient Medications: Current Inpatient Medications Acetaminophen (Acetaminophen 325 Mg Tab) 650 mg PO Q4H PRN PRN Reason: Pain or Fever Stop: 08/26/23 09:28 Buspirone HCl (Buspirone 5 Mg Tab) 5 mg PO BID ANDRE Stop: 08/26/23 09:28 Last Admin: 07/28/23 07:31 Dose: 5 mg Fluticasone Propionate (Fluticasone Propionate Na Spr 16 Gm Btl) 2 sprays NA QAM PRN PRN Reason: Congestion Stop: 08/26/23 09:28 Heparin Sodium (Porcine) (Heparin Sod 5,000 Unit/0.5 Ml Vial) 5,000 units SQ Q12 ANDRE Stop: 08/26/23 09:28 Last Admin: 07/28/23 07:31 Dose: 5,000 units Thiamine HCl 200 mg/ Sodium (Chloride) 52 mls @ 210 mls/hr IV Q8H ANDRE Stop: 08/26/23 10:59 Last Infusion: 07/28/23 11:12 Dose: Infused Nitroglycerin (Nitroglycerin Sl 0.4 Mg/Tab Tab) 0.4 mg SL Q5M PRN PRN Reason: Chest Pain Stop: 08/26/23 09:28 Olanzapine (Olanzapine 2.5 Mg Tab) 2.5 mg PO HS [facility] Stop: 08/26/23 20:59 Last Admin: 07/27/23 21:40 Dose: 2.5 mg Polyethylene Glycol (Polyethylene (Miralax) 17 Gm Pack) 17 gm PO DAILY PRN PRN Reason: Constipation Stop: 08/26/23 09:28 Potassium Chloride (Potassium Chloride Crtab 20 Meq Tabcr) 20 meq PO DAILY ANDRE Stop: 08/26/23 09:28 Last Admin: 07/28/23 07:31 Dose: 20 meq
--- NOTE | 2023-07-28 13:53 | Hospitalist Progress Note ---
Date of Service July 28, 2023 Assessment & Plan (1) Eating disorder: (2) Psychogenic polydipsia: (3) Chronic leukopenia: Plan Patient with acute hyponatremia due to excessive water intake related to psychogenic polydipsia. Patient now agreeable to voluntary behavioral health unit admission Reviewed psychiatry consultation, communication with psychiatry, willing to accept patient [facility] tomorrow when bed available Screen for COVID as per required for U admission Nutrition consult for generalized nutrition counseling and encouragement with appropriate diet choices Activity as tolerated Okay for MedSurg, discontinue telemetry Admission and Anticipated Discharge Date Admission Date: July 27, 2023 Subjective Patient had questions about her low sodium. Answered them. Is willing to voluntarily go to [facility]. No chest pain, no shortness of breath. Physical Exam Physical Exam: Constitutional: Alert HEENT: Mucous membranes moist. Lungs: Clear to auscultation, decreased, no wheezes rales or rhonchi CV: S1-S2, regular Abdomen: Soft, nontender, nondistended Extremities: No significant edema Neuro: No focal deficits Psych: Cooperative, flat affect Results & Data Results & Data Vital Signs (Past 12 Hours) Vital Signs Temp Pulse Pulse Resp BP Pulse Ox O2 Del Method 07/28/23 10:58 36.6 C 72 14 110/77 98 Room Air 07/28/23 07:11 36.8 C 58 L 14 121/80 97 Room Air 07/28/23 04:09 36.8 C 59 L 20 109/75 98 Room Air Diagnostic Findings Reviewed imaging, laboratory and diagnostic studies. Pertinent findings as below. Hemoglobin stable Sodium 135, significantly improved
[2023-07-28] MEDS: POLYETHYLENE (MIRALAX) 17 GM PACK PO PRN (16:27)
--- NOTE | 2023-07-29 11:22 | Discharge Summary ---
Discharge Summary Date of Service July 29, 2023 Principal Dx & Hospital Course #1 = Principal Diagnosis (1) Psychogenic polydipsia: (2) Eating disorder: (3) Chronic leukopenia: Plan Patient was admitted to the hospital. She was placed on fluid restriction. Her sodium was closely monitored. She also had known issues with eating disorder and suspect some of her hyponatremia may be induced to poor solute intake as well as the polydipsia. Also patient is on Haldol which also can cause some hyponatremia. With fluid restriction the patient sodium rapidly normalized. She was seen by nutrition and given recommendations on healthy diet. Patient was seen by psychiatry. Due to her mental health disorder that put her physical health a great risk with severe hyponatremia is determined that the patient would need behavioral health admission. Patient initially was resistant but after some time to consider this treatment plan and possibility of staying here at [facility] patient was agreeable to a voluntary admission to [facility]. Her sodium stabilized. Other vital signs are stabilized. She can be discharged to [facility]. Notes For Next Care Provider Recommend strict fluid restriction 1.5 L daily Check sodium level weekly or as needed Medication Changes From Visit None Admission HPI Per Admitting Provider 53-year-old female with past medical history significant for pituitary adenoma, chronic rhinitis, varicose veins of lower extremity, lumbar disc disease, mood disorder, paranoia, food insecurity, history of multiple concussions, history of trauma, history of hyponatremia comes because of eating disorder, patient went to [facility] with her brother to get admitted for eating disorder but there is no bed available so it was advised to get admitted here and get transferred to [facility] when bed is available. Patient states she is eating only once daily. Denies any headache. No dizziness. No blurred vision. No runny nose or sore throat. No cough. No chest pain or shortness of breath. No nausea or vomiting. No abdominal pain. Normal bowel and bladder movements. Resting comfortably and hemodynamically stable. 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 She was discharged on Fluid restriction 2.5 L a day.Patient saw PCP on July 21, 2023. PCP notes " 1 week of anorexia. Patient had history of anorexia when she was age 14 because of a of a family member. In late teens and early 20s she was doing bingeing. She never received a formal treatment but her weight stabilized. And again since her mother she has increased stress and weight decreased from 136 pounds in February to now 103 pounds. Eating very little. Brother visits couple of times a week. Also has financial stress. Because of leukopenia Haldol was decreased to 2.5 mg in the hospital, BuSpar was decreased to 5 mg twice daily." Patient was advised to go to [facility] for eval and admission. past medical history. As mentioned above Past surgical history. Ligation of oviducts. Repair of inguinal hernia. Vein ablation extremity. Social history. Lives alone. Former smoker. No alcohol use. No drug use. Family history. Mother had brain tumor. Breast cancer. Mental disorder. Father had mental disorder. Stomach cancer. Brother has mental disorder. Admission Exam Per Admitting Provider Per H&P Discharge Exam Constitutional: Alert thin and underweight HEENT: Mucous membranes moist. Lungs: Clear to auscultation, decreased, no wheezes rales or rhonchi CV: S1-S2, regular Abdomen: Soft, nontender, nondistended Extremities: No significant edema Neuro: No focal deficits Psych: Cooperative, flat mood Updated Medication List Medication Instructions Recorded Confirmed Type fluticasone propionate 50 2 spray intranasal QAM PRN 05/07/23 07/27/23 History mcg/actuation nasal Congestion spray,suspension buspirone 7.5 mg tablet 5 mg (0.6667 x 7.5 mg) PO BID #0 07/06/23 07/27/23 Rx tabs haloperidol 5 mg tablet 2.5 mg (1/2 x 5 mg) PO HS #30 tabs 07/06/23 07/27/23 Rx potassium chloride 10 mEq 20 meq (2 x 10 mEq) PO DAILY #60 07/06/23 07/27/23 Rx tablet,extended release(part/cryst) tabs Hospital Stay Data Consultations 07/27/23 02:47 ED Decision to Admit Stat 07/27/23 09:29 Consult Psychiatry Routine Diagnostic Imagining Performed Reviewed imaging, laboratory and diagnostic studies. Pertinent findings as below. Hemoglobin 11.2, WBCs 2.9, platelets 203 Sodium 135, potassium 3.9 Pending Results Patient Have Any Pending Studies at Discharge: No Discharge Instructions Given to Patient (Per Discharging Provider) Encourage and recommend regular meals Total Time Total Time Spent Total Time Spent (In Minutes): 32
== END 2023-07-29 15:50 ==
LOC: ED 01:32 → SUATTDRO 06:22 → EDINP 06:22 → INTOOBSV 06:22 → EDINP 09:27 → 2N 13:58 → 3W 07-28 19:45

== ENCOUNTER 2023-07-29 13:56 | Inpatient (IN) ==
[2023-07-29] MEDS ORDERED: BISMUTH SUBSALICYLATE LIQD 236 ML PO PRN ×2 (16:15→16:19)
[2023-07-29] MEDS ORDERED: hydrOXYzine HCl 25 MG TAB PO PRN ×3 (16:15→16:19)
[2023-07-29] MEDS ORDERED: SODIUM CHLORIDE 0.65% NA SOLN 45 ML (OCEAN) PRN ×2 (16:15→16:19)
[2023-07-29] MEDS ORDERED: MAGNESIUM HYDROXIDE SUSP 30 ML UDC PO PRN (16:19)
[2023-07-29] MEDS ORDERED: ALUMINUM/MAGNESIUM SUSP 30 ML UDC PO PRN (16:19)
[2023-07-29] MEDS ORDERED: ACETAMINOPHEN 325 MG TAB PO PRN (16:19)
[2023-07-29] MEDS: hydrOXYzine HCl 25 MG TAB PO PRN (17:27)
[2023-07-29] MEDS: OLANZAPINE 2.5 MG TAB PO SCH (21:51)
--- NOTE | 2023-07-30 09:12 | History & Physical ---
Date of Service July 30, 2023 Impression / Recommendations Impression 53 yo woman with a history of anorexia, psychogenic polydipsia and depression vs BPAD admitted for increased restriction, weight loss, depression and excessive fluid intake. Diagnostically meets criteria for anorexia in the context of recent psychosocial stressors of her mother's in April as well as possible unspecified mood disorder of BPAD vs major depression vs depression due to caloric restriction in addition to possible resolving delirium from hyponatremia due to psychogenic polydipsia. Discussed medication treatment options in detail. Discussed risks, benefits and alternatives. She is willing to continue with olanzapine at a lower dose as an off-label use for psychogenic polydipsia and ruminative thoughts about food and she would like to restart buspar which she was taking previously for anxiety. Reviewed side effects including but not limited to: nausea, CORDERO, fatigue with Buspar and movement (TD, NMS), cardiac (QTc prolongation), and metabolic (stroke, insulin resistance) and necessity for fasting lipid and glucose labwork and AIMS done with score of 0 with olanzapine. Reviewed that there are no FDA- approved medications for anorexia and that treatment typically includes residential or IOP eating disorder treatment which she is willing to consider. Overall I spent a total of 75 minutes for this admission including review of chart records, review of labwork, direct evaluation of the patient, counseling the patient, ordering medication, risk assessment, discussion with the psychiatric liason RN and documentation in the electronic health record. (1) Eating disorder: (2) Unspecified mood [affective] disorder: (3) Psychogenic polydipsia: Plan 07/30/2023: The patient was admitted to the [facility] ([facility] mental health unit) on q15 min checks (behavioral with suicide precautions) for safety. The patient will participate in group, recreational, and milieu therapies and will be offered additional individual and family sessions as clinically appropriate. -Reduce olanzapine to 1.25mg HS po -Start Buspar 3.75mg BID -Mood Disorder Questionnaire to better assess for possible history of BPAD -Fluid restriction of 1.5L per day -Sodium monitoring weekly or prn -Fasting lipid panel and glucose tomorrow AM with Na+ re-check given some difficulty enforcing fluid restrictions on inpatient psychiatric setting Inventory Assets Strengths: supportive relationships, willing to get treatment Needs: safety and stabilization, medication adjustment, additional coping skills, increased outpatient services Suicide Risk Level Suicide Risk Level: Moderate (q15 min suicide checks) (denies current SI but with depression, flat affect, periods of mood lability. Feels safe on the unit and able to ask for support if needed) Risk Factors Assessment Male: No : Yes Do You Have Access To A Gun?: No Mental Health Diagnoses: Yes Previous Attempt: No Family History of Suicide: Yes Previous Psychiatric Hospitalization: No Hopelessness: No Protective Factors Assessment Supportive Family: Yes (brother) Psychiatric History Identifying Data RACHEL ERWIN is a 53-year-old F who currently lives in [place] alone with her dogs (2), has a history of BPAD and eating disorder, and was admitted on 07/29/23 16:06 on a 201 voluntary commitment for depression, inability to function and significant weight loss as well as psychogenic polydipsia. Chief Complaint "Not so great". History of Present Illness Rachel was admitted from the medical floor for psychogenic polydipsia, mood lability and significant recent weight loss with restriction. Additional recent history per my consult note on 07/27/2023: "Rachel has previously been seen by the psychiatry consult service on multiple occasions due to presentations for hyponatremia, felt to be due to psychogenic polydipsia, and lack of po intake. During past assessments she has denied purposeful restriction and rather lack of po intake has seemed to be driven by possible delusions and disorganization vs delirium from hyponatremia. Today she denies purposeful restriction and rather reports lack of po intake due to persistent n ausea which she recognizes is made worse by not eating. Then she will "binge" due to hunger but then feels sick and doesn't want to eat. She denies any episodes of purging. Agrees she likely drinks too much water, she isn't sure why. She reports family history of her father dying from stomach cancer and has previously wondered if she could have cancer causing her symptoms. Significant worsening in her functioning since her mother from brain cancer in April. Since then her mood has been cycling and she reports increased difficulty getting out of bed and caring for herself. She's been missing work and worries about being fired. 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 She isn't sure if she's ever experienced psychosis or marisela. Stopped taking haldol due to dry mouth side effects. She notes her brother was trying to get her treatment at [facility] eating disorder inpatient facility but there were no beds and "7 people in front of me" so she left AMA and knows her brother is upset because of this. She is willing to consider medication changes and willing for inpatient psychiatric treatment to help with her mood symptoms, poor functioning, poor po intake once medically stable." Today she presents with very flat affect and reports depressed mood with fatigue. She attributes the fatigue to starting olanzapine. She doesn't feel this is helping with ruminative worries about eating and worries about weight gain. She is willing to consider a lower dose and trying it for a few more days. She feels like the anorexia and lack of eating has gotten worse since April due to the stress and grief of her mother's . She describes depression symptoms including anhedonia, low energy, low motivation, decreased concentration, increased sleep. Denies any SI. She agrees she may be experiencing anorexia with recent worsened restriction and compulsive thoughts about food including "ruminating after I ate about what I ate and just the thought of eating". States she may be interested in possible residential eating disorder treatment. She feels she drinks a lot of fluid due to thirst and doesn't feel this at all due to her eating disorder or as a substitute to feel less hungry. She feels like this has been going on for a couple of years. She notes that when she doesn't drink enough water she gets "dehydrated, and I feel tired, and I haven't peed all morning". She says typically she pees "once an hour". This frequency of urination is also disruptive at work. She seems somewhat surprised to hear such frequency of urination is abnormal. Currently prescribed psychiatric medications of haldol 2.5mg HS (stopped taking this 1-2 months ago due to dry mouth side effect) and Buspar 3.75mg BID (has been taking this, finds this helpful for anxiety, seems to wear off quickly). Psychiatric ROS notable for her denial of any history of past episodes of marisela nor psychosis (both at odds with chart review notable for past history of paranoia/psychosis and multiple prior mood stabilizer trials and past impulsive behaviors per collateral suggestive of possible marisela) nor OCD. Reports history of anorexia and as a teenager had binging/purging episodes. Past Psychiatric History Current Psychiatric Diagnosis: Unspecified Depression Disorder, BPAD, eating disorder Outpatient Services: [facility], no current therapist Previous Psych Admissions: none Do You Have Access To A Gun?: No History of Previous Suicide Attempt: No Past Medication Trials: Seroquel (made me tired), Prozac (yeah it helped, no side effects), Haldol (made my mouth dry), [place] (liked it), Lamictal (I'm supposed to be taking that but never picked it up), Abilify (didn't feel well), escitalopram (seizure), We llbutrin (visual disturbance) Past Head Trauma/Neuro History History of Concussion/Seizure: Yes hx multiple concussions and seizures in the past (reports she sees neurology about once per year) Allergies Allergy/AdvReac Type Severity Reaction Status Date / Time latex Allergy Intermediate Rash Verified 07/03/23 15:56 peanut Allergy Intermediate EDEMA/RASH Verified 07/03/23 15:56 wheat Allergy Intermediate CELIAC Verified 07/03/23 15:56 DISEASE escitalopram AdvReac Severe Seizure Verified 07/03/23 15:56 oxycodone AdvReac Severe Seizure Verified 07/03/23 15:56 acetaminophen AdvReac Intermediate Vomiting Verified 07/03/23 15:56 bupropion [From Wellbutrin] AdvReac Intermediate VISUAL Verified 07/03/23 15:56 DISTURBANCE Home Medications Medication Instructions Recorded Confirmed Type fluticasone propionate 50 2 spray intranasal QAM PRN 05/07/23 07/27/23 History mcg/actuation nasal Congestion spray,suspension buspirone 7.5 mg tablet 5 mg (0.6667 x 7.5 mg) PO BID #0 07/06/23 07/27/23 Rx tabs haloperidol 5 mg tablet 2.5 mg (1/2 x 5 mg) PO HS #30 tabs 07/06/23 07/27/23 Rx potassium chloride 10 mEq 20 meq (2 x 10 mEq) PO DAILY #60 07/06/23 07/27/23 Rx tablet,extended release(part/cryst) tabs Family History Family History of: Depression (father) and Suicide Completion (paternal grandfa ther) Alcohol History Hx of Alcohol Use Over the Past 12 Months: No AUDIT Total Score: 0 Smoking Use Have You Smoked or Used Tobacco Products in the Last 30 Days: No Smoking Status: Former smoker Substance History Hx of Over the Counter Med Misuse Over the Past 12 Months: No Hx of Organic Substance Use Over the Past 12 Months: No Hx of Illegal Substances/Street Drug Use Over Past 12 Months: No Personal History Childhood: Supportive brother. Her mother in April. 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[employer]) Marital Status: Single Number Of Children: 0 Beliefs That Will Affect Care: None Current Legal Problems: No Hx Legal Problems: No Hx Traumatic Life Events: Yes Patient History Medical History Pelvic fracture Lumbar disc disease No chronic diseases present Surgical History Status post endovenous radiofrequency ablation (RFA) of saphenous vein Inguinal hernia No significant past surgical history Family History Mother Breast cancer Social History Smoking Status: Former smoker Hx Alcohol Use: No Hx Substance Use: No Preferred Language: Italian Communication Ability: Effective Buyer Required: No Beliefs That Will Affect Care: None Current Living Situation: Alone Current Living Situation Comment: doesn't live in a great neighborhood Feels Safe at Home: Yes Gender Identity: Female Assistive Devices: None Review of Systems Review of Systems: All systems reviewed & are unremarkable except as noted in HPI & below Physical Exam Psychiatric: Orientation: alert and oriented x 3 Apperance: appropriately dressed and appropriately groomed Eye Contact: + fair eye contact Motor Behavior: no abnormal motor movements Speech: normal rate/rhythm/volume of speech Affect: + flat affect Mood: + depressed mood Thought Process: + concrete thought process Thought Content: reality based without delusions Suicidal Thoughts: denies suicidal thoughts Homicidal Thoughts: denies homicidal thoughts Hallucinations: no auditory hallucinations and no visual hallucinations Cognition: recent memory grossly intact, remote memory grossly intact, attention grossly intact and language grossly intact Estimated Intelligence: consistent with education level Insight: + limited insight Judgment: + limited judgement Vital Signs (Past 24 Hours): Last Vital Signs Temp 36.9 C 07/30/23 06:43 Pulse 83 06/14/24 06:44 Resp 16 07/30/23 06:43 BP 113/79 07/30/23 06:44 Pulse Ox 98 07/29/23 17:09 O2 Del Method Room Air 07/29/23 17:09 Exam Statement: A physical exam was performed on the medical floor by Dr. Ballard for the purposes of medical clearance. I accept that physical as correct and adequate for the purposes of the inpatient physical exam. Results & Data ([facility]) Current Inpatient Medications Current Inpatient Medications: Current Inpatient Medications Acetaminophen (Acetaminophen 325 Mg Tab) 650 mg PO Q4H PRN PRN Reason: Headache or Minor Fever Stop: 08/28/23 16:14 Al Hydrox/Mg Hydrox/Simethicone (Aluminum/Magnesium Susp 30 Ml Udc) 30 ml PO Q4H PRN PRN Reason: GI Upset Stop: 08/28/23 16:14 Bismuth Subsalicylate (Bismuth Subsalicylate Liqd 236 Ml) 15 ml PO PRN PRN PRN Reason: Loose Stool Stop: 08/28/23 16:14 Hydroxyzine HCl (Hydroxyzine Hcl 25 Mg Tab) 50 mg PO HSZ PRN PRN Reason: Insomnia Stop: 08/28/23 16:14 Hydroxyzine HCl (Hydroxyzine Hcl 25 Mg Tab) 25 mg PO Q4H PRN PRN Reason: Anxiety Stop: 08/28/23 16:14 Last Admin: 07/29/23 17:27 Dose: 25 mg Magnesium Hydroxide (Magnesium Hydroxide Susp 30 Ml Udc) 30 ml PO DAILY PRN PRN Reason: Constipation Stop: 08/28/23 16:14 Olanzapine (Olanzapine 2.5 Mg Tab) 2.5 mg PO HS ANDRE Stop: 08/28/23 21:59 Last Admin: 07/29/23 21:51 Dose: 2.5 mg Sodium Chloride (Sodium Chloride 0.65% Na Soln 45 Ml ([place])) 1 - 2 sprays NA PRN PRN PRN Reason: Nasal Dryness/Congestion Stop: 08/28/23 16:14
[2023-07-30] MEDS: busPIRone 7.5 MG TAB PO SCH (21:00)
[2023-07-30] MEDS: OLANZAPINE 2.5 MG TAB PO SCH (21:01)
[2023-07-31 08:26] LABS: Chol HDL Ratio 2.7 (0-5)
--- NOTE | 2023-07-31 14:10 | Psychiatric Progress Note ---
Date of Service July 31, 2023 Impression / Recommendations Impression 53 yo woman with a history of anorexia, psychogenic polydipsia and depression vs BPAD admitted for increased restriction, weight loss, depression and excessive fluid intake. Labs reviewed and sodium within low normal range; blood glucose and lipid panel within normal limits. Patient presents in a depressed state with a flat affect, no reactivity. She is concerned about medication contribution to appetite stimulation and presents somatic response to her low dose of medications. Gathered collateral from patient's brother. Concern for psychotic depression with poor reality testing and paranoia. Low suspicion for past marisela however unclear given limited history. Given family history of success with SNRI plan to start Effexor. Will start scheduled Ativan during the day and night for anxiety and sleep. Patient would benefit from an increase in nightly olanzapine however currently resistant to increase.Patient may benefit from ECT on an outpatient basis and admission to inpatient residential eating disorder rehab. [facility] due to on-going psychosis and severe depression. Overall I spent a total of 90 minutes for this admission including review of chart records, review of labwork, direct evaluation of the patient, counseling the patient, ordering medication, risk assessment, gathering collateral, orders and documentation in the electronic health record. (1) MDD (major depressive disorder), recurrent, severe, with psychosis: (2) Eating disorder: (3) Psychogenic polydipsia: (4) Anorexia nervosa: Plan 07/31/2023: Start Effexor XR 37.5 mg daily. Start lorazepam 0.5 mg twice daily and morning and afternoon and lorazepam 1 mg at bedtime. Continue olanzapine and BuSpar. Recheck sodium in 2 days. Continue fluid restriction. Patient MNPR giviesidney ongoing paranoia and concern for delusional thoughts. Continue other medications and treatment plan. 07/30/2023: The patient was [facility] to the [facility] on q15 min checks (behavioral with suicide precautions) for safety. The patient will participate in group, recreational, and milieu therapies and will be offered additional individual and family sessions as clinically appropriate. -Reduce olanzapine to 1.25mg HS po -Start Buspar 3.75mg BID -Mood Disorder Questionnaire to better assess for possible history of BPAD -Fluid restriction of 1.5L per day -Sodium monitoring weekly or prn -Fasting lipid panel and glucose tomorrow AM with Na+ re-check given some difficulty enforcing fluid restrictions on inpatient psychiatric setting Inventory Assets Strengths: supportive relationships, willing to get treatment Needs: safety and stabilization, medication adjustment, additional coping skills, increased outpatient services Suicide Risk Level Suicide Risk Level: Moderate (q15 min suicide checks) (denies current SI but with depression, flat affect, periods of mood lability. Feels safe on the unit and able to ask for support if needed) Risk Factors Assessment Male: No : Yes Do You Have Access To A Gun?: No Mental Health Diagnoses: Yes Previous Attempt: No Family History of Suicide: Yes Previous Psychiatric Hospitalization: No Hopelessness: No Protective Factors Assessment Supportive Family: Yes (brother) Interval History Chief Complaint "[]". Review of Systems Sleep Information Total Hours of Sleep: 8.75 Sleep Comments: EMILY Malloy Meal Information Percent Meal Consumed - Breakfast: 100 Percent Meal Consumed - Lunch: 100 Percent Meal Consumed - Dinner: 75 Subjective Subjective Patient was seen & assessed and interval progress reviewed with treatment team nursing and social work Overnight no acute events. Patient presenting very flat affect with no reactivity. Providing minimal responses to questions. Reports presenting to the hospital because of concentration difficulties at work and getting in trouble for small mistakes. Confirms past eating disorder diagnosis. Reports excessively sleeping without feeling rested; complains of low energy. Reports past antidepressant treatment; unclear on names. Reports initially coming to the hospital confused. Reports ongoing increase in thirst. Provided permission to speak to her brother. She denies suicidal ideation. Reviewed mood disorder questionnaire with patient. Attempted to clarify past marisela and hypomania; patient reported symptoms of hypertalkativeness, racing thoughts, increased activity however stated these periods were short-lived lasting less than a day to hours. Lives alone. Grieving over the of her mother in April. Main support is her brother. She was updated about her labs. She is goal-oriented to return to work. Called Brother (Abdulaziz Paige [phone]) for collateral: Mental health problems since childhood. Last 6 months worse concentration, less function for simple tasks, memory. Slowed movements as if in a "Trance." Difficulty holding a job. Trauma with loss of mother. Minimal responses in conversation. Restricting food; only drink fluids (alternate between large bottle of water or large cups of herbal tea). Apartment in disorganized state; fridge only has bottles of fluids. Over consume during family dinner once a week; "only solid food she was eating per week." Eating almond milk, pumpkin protein. Lost 30 lbs last few months. Times of poor communication, inc anxiety, paranoia. Has presented c/o FBI watching her. Worried she is becoming "delusional." Past concern for depression. Personally struggled with MDE. Maternal uncle schizophrenia. Past periods in her 20s, 30s presenting odd behaviors such as exercising heavily for days. Brother dx with MDE, did not do well with SSRIs (Prozac, Zoloft) was on for a month or less each; Pristiq with CBT effective. Physical Exam Mental Examination Appearance: Disheveled Eye Contact: Direct Eye Contact Motor Behavior: Slowed Speech: Soft and Delayed Mood: Anxious Affect: Flat (non reactive) Thought Process: [place] (illogical at times) Thought Content: Goal Oriented (paranoia, delusional at times) Hallucinations: None Insight: Poor Judgement: Poor Vital Signs (Past 24 Hours) Last Vital Signs Temp 36.9 C 07/31/23 06:36 Pulse 83 07/31/23 06:37 Resp 16 07/31/23 06:36 BP 98/67 L 07/31/23 06:37 Pulse Ox 98 07/29/23 17:09 O2 Del Method Room Air 07/29/23 17:09 Results & Data ([facility]) Laboratory Results Laboratory Results - last 24 hr 07/31/23 07:31 Sodium 136 Fasting Glucose 92 Triglycerides 46 Cholesterol 179 LDL Cholesterol, Calc 104 VLDL Cholesterol, Calc 9 HDL Cholesterol 66 Cholesterol/HDL Ratio 2.7 Current Inpatient Medications Current Inpatient Medications: Current Inpatient Medications Acetaminophen (Acetaminophen 325 Mg Tab) 650 mg PO Q4H PRN PRN Reason: Headache or Minor Fever Stop: 08/28/23 16:14 Al Hydrox/Mg Hydrox/Simethicone (Aluminum/Magnesium Susp 30 Ml Udc) 30 ml PO Q4H PRN PRN Reason: GI Upset Stop: 08/28/23 16:14 Bismuth Subsalicylate (Bismuth Subsalicylate Liqd 236 Ml) 15 ml PO PRN PRN PRN Reason: Loose Stool Stop: 08/28/23 16:14 Buspirone HCl (Buspirone 7.5 Mg Tab) 3.75 mg PO BID ANDRE Stop: 08/29/23 20:59 Last Admin: 07/31/23 08:58 Dose: 3.75 mg Hydroxyzine HCl (Hydroxyzine Hcl 25 Mg Tab) 50 mg PO HSZ PRN PRN Reason: Insomnia Stop: 08/28/23 16:14 Hydroxyzine HCl (Hydroxyzine Hcl 25 Mg Tab) 25 mg PO Q4H PRN PRN Reason: Anxiety Stop: 08/28/23 16:14 Last Admin: 07/29/23 17:27 Dose: 25 mg Lorazepam (Lorazepam 0.5 Mg Tab) 0.5 mg PO BID@0800,1400 ANDRE Stop: 08/30/23 13:59 Lorazepam (Lorazepam 1 Mg Tab) 1 mg PO HS ANDRE Stop: 08/30/23 21:59 Magnesium Hydroxide (Magnesium Hydroxide Susp 30 Ml Udc) 30 ml PO DAILY PRN PRN Reason: Constipation Stop: 08/28/23 16:14 Olanzapine (Olanzapine 2.5 Mg Tab) 1.25 mg PO HS ANDRE Stop: 08/29/23 21:59 Last Admin: 07/30/23 21:01 Dose: 1.25 mg Sodium Chloride (Sodium Chloride 0.65% Na Soln 45 Ml ([place])) 1 - 2 sprays NA PRN PRN PRN Reason: Nasal Dryness/Congestion Stop: 08/28/23 16:14 Venlafaxine HCl (Venlafaxine Hcl Xr 37.5 Mg Capxr) 37.5 mg PO QAM ANDRE Stop: 08/30/23 13:59 Mental Health & Subst Abuse Tx Psychiatrist Name of Psychiatrist: JOSHUA Psychiatrist's Date Of Appointment With Psychiatric Provider: 08/05/23 Time of Appointment with Psychiatrist: 1:15pm Psychiatric Appointment Comment: post hospital visit Therapist Name of Therapist: willing for referral Resource Development Director Name of Resource Development Director: willing for referral Post Discharge Appointments Primary Care Physician Name Of Family Doctor/PCP: Dr. Maki Date of Future Appointment with PCP: 08/03/23 Time of Appointment with PCP: 1:20pm Provider Appointment Comment: post hospital visit - will see P.ABerenice
[2023-07-31] MEDS: LORazepam 0.5 MG TAB PO SCH (14:16)
[2023-07-31] MEDS: VENLAFAXINE HCL XR 37.5 MG CAPXR PO SCH (14:16)
[2023-07-31] MEDS: LORazepam 1 MG TAB PO SCH (21:11)
[2023-08-01] MEDS: CALCIUM 600MG + VIT D 400 IU TAB PO SCH (12:48)
[2023-08-01] MEDS: MULTIVITAMIN CHEWABLE TAB PO SCH (12:48)
--- NOTE | 2023-08-01 13:32 | Psychiatric Progress Note ---
Date of Service August 01, 2023 Impression / Recommendations Impression 53 yo woman with a history of anorexia, psychogenic polydipsia and depression vs BPAD admitted for increased restriction, weight loss, depression and excessive fluid intake. A: Patient presents a long history of anorexia. Currently has associated binge eating episodes. Presents a history of body image issues which are prevalent in her past activities and profession in [employer] and dance. Concern for pre-existing depression and anxiety in early adulthood. Concern for compulsive behaviors such as food restriction and excess exercise. Patient is highly focused on discharge and presents poor insight into medical and psychiatric issues. Is agreeable to try another antipsychotic and will start Invega 1.5 mg at bedtime. Start vitamin supplementation. We will draw labs tomorrow to check electrolytes, inflammation. Check daily weights. MNPR due to on-going psychosis and severe depression. Overall I spent a total of 60 minutes for this admission including review of chart records, review of labwork, direct evaluation of the patient, counseling the patient, ordering medication, risk assessment, gathering collateral, orders and documentation in the electronic health record. (1) MDD (major depressive disorder), recurrent, severe, with psychosis: (2) Eating disorder: (3) Psychogenic polydipsia: (4) Anorexia nervosa: Plan 08/01/2023: Check daily weights. Daily multivitamin, calcium and vitamin D supplement twice daily. Labs for CMP and ESR tomorrow morning. Continue Effexor. D/C olanzapine (pt refusing). Start paliperidone 1.5 mg at bedtime. 07/31/2023: Start Effexor XR 37.5 mg daily. Start lorazepam 0.5 mg twice daily and morning and afternoon and lorazepam 1 mg at bedtime. Continue olanzapine and BuSpar. Recheck sodium in 2 days. Continue fluid restriction. Patient MNPR given ongoing paranoia and concern for delusional thoughts. Continue other medications and treatment plan. 07/30/2023: The patient was admitted to the [facility] ([facility] unit) on q15 min checks (behavioral with suicide precautions) for safety. The patient will participate in group, recreational, and milieu therapies and will be offered additional individual and family sessions as clinically appropriate. -Reduce olanzapine to 1.25mg HS po -Start Buspar 3.75mg BID -Mood Disorder Questionnaire to better assess for possible history of BPAD -Fluid restriction of 1.5L per day -Sodium monitoring weekly or prn -Fasting lipid panel and glucose tomorrow AM with Na+ re-check given some difficulty enforcing fluid restrictions on inpatient psychiatric setting Inventory Assets Strengths: supportive relationships, willing to get treatment Needs: safety and stabilization, medication adjustment, additional coping skills, increased outpatient services Suicide Risk Level Suicide Risk Level: Moderate (q15 min suicide checks) (denies current SI but with depression, flat affect, periods of mood lability. Feels safe on the unit and able to ask for support if needed) Risk Factors Assessment Male: No : Yes Do You Have Access To A Gun?: No Mental Health Diagnoses: Yes Previous Attempt: No Family History of Suicide: Yes Previous Psychiatric Hospitalization: No Hopelessness: No Protective Factors Assessment Supportive Family: Yes (brother) Interval History Chief Complaint "[]". Review of Systems Sleep Information Total Hours of Sleep: 8.5 Sleep Comments: HS Zyprexa Meal Information Percent Meal Consumed - Breakfast: 80 Percent Meal Consumed - Lunch: 100 Percent Meal Consumed - Dinner: 100 Subjective Subjective Patient was seen & assessed and interval progress reviewed with nursing and social work Overnight nursing reported paranoia. Refused nightly olanzapine and BuSpar. Eating her meals. No evidence of diverting water intake. Patient reports sleeping better last night with Ativan. Reports not wanting olanzapine or BuSpar last night due to "side effects". She is concerned about weight gain. We reflect on her childhood, adolescence, and early adulthood. Reports growing up in [place] and having a stable and supportive household. Denies significant abuse. Was in track and dance in high school and continued both at [employer] where she studied psychology. 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 Prefers modern dance. Reports at that time was struggling with depression and anxiety which caused concentration problems. Reports having "anorexia" since 14 years of age due to body image issues. Confirms that she binges once a week due to excess starvation and often feels sick afterwards. Reports relief from activities such as not eating, being outside, exercising on a bike. Denies compensatory behaviors such as vomiting, laxative use, and enemas. She feels safe in the hospital. Highly focused on discharge and seems ambivalent about her low body weight. Agreeable to vitamin supplementation. Reports she will refuse olanzapine and is amenable to trying another antipsychotic medication. She denies suicidal ideation. Physical Exam Mental Examination Appearance: Disheveled Eye Contact: Direct Eye Contact Motor Behavior: Slowed Speech: Soft and Delayed Mood: Anxious Affect: Flat (non reactive) Thought Process: [place] (illogical at times) Thought Content: Goal Oriented (paranoia, delusional at times) Hallucinations: None Insight: Poor Judgement: Poor Vital Signs (Past 24 Hours) Last Vital Signs Temp 36.9 C 08/01/23 06:37 Pulse 121 H 08/01/23 06:37 Resp 16 08/01/23 06:37 BP 118/76 08/01/23 06:37 Pulse Ox 98 07/29/23 17:09 O2 Del Method Room Air 07/29/23 17:09 Results & Data ([facility]) Current Inpatient Medications Current Inpatient Medications: Current Inpatient Medications Acetaminophen (Acetaminophen 325 Mg Tab) 650 mg PO Q4H PRN PRN Reason: Headache or Minor Fever Stop: 08/28/23 16:14 Al Hydrox/Mg Hydrox/Simethicone (Aluminum/Magnesium Susp 30 Ml Udc) 30 ml PO Q4H PRN PRN Reason: GI Upset Stop: 08/28/23 16:14 Bismuth Subsalicylate (Bismuth Subsalicylate Liqd 236 Ml) 15 ml PO PRN PRN PRN Reason: Loose Stool Stop: 08/28/23 16:14 Buspirone HCl (Buspirone 7.5 Mg Tab) 3.75 mg PO BID ANDRE Stop: 08/29/23 20:59 Last Admin: 08/01/23 09:00 Dose: 3.75 mg Calcium/Vitamin D (Calcium 600mg + Vit D 400 Iu Tab) 1 tab PO BID ANDRE Stop: 08/31/23 11:29 Last Admin: 08/01/23 12:48 Dose: 1 tab Hydroxyzine HCl (Hydroxyzine Hcl 25 Mg Tab) 50 mg PO HSZ PRN PRN Reason: Insomnia Stop: 08/28/23 16:14 Hydroxyzine HCl (Hydroxyzine Hcl 25 Mg Tab) 25 mg PO Q4H PRN PRN Reason: Anxiety Stop: 08/28/23 16:14 Last Admin: 07/29/23 17:27 Dose: 25 mg Lorazepam (Lorazepam 0.5 Mg Tab) 0.5 mg PO BID@0800,1400 ANDRE Stop: 08/30/23 13:59 Last Admin: 08/01/23 09:00 Dose: 0.5 mg Lorazepam (Lorazepam 1 Mg Tab) 1 mg PO HS ANDRE Stop: 08/30/23 21:59 Last Admin: 07/31/23 21:11 Dose: 1 mg Magnesium Hydroxide (Magnesium Hydroxide Susp 30 Ml Udc) 30 ml PO DAILY PRN PRN Reason: Constipation Stop: 08/28/23 16:14 Multivitamins/Folic Acid/Vitamin C (Multivitamin Chewable Tab) 1 tab PO QAM ANDRE Stop: 08/31/23 11:29 Last Admin: 08/01/23 12:48 Dose: 1 tab Paliperidone (Paliperidone 1.5 Mg Tabcr) 1.5 mg PO HS ANDRE Stop: 08/31/23 21:59 Sodium Chloride (Sodium Chloride 0.65% Na Soln 45 Ml ([place])) 1 - 2 sprays NA PRN PRN PRN Reason: Nasal Dryness/Congestion Stop: 08/28/23 16:14 Venlafaxine HCl (Venlafaxine Hcl Xr 37.5 Mg Capxr) 37.5 mg PO QAM ANDRE Stop: 08/30/23 13:59 Last Admin: 08/01/23 09:01 Dose: 37.5 mg Mental Health & Subst Abuse Tx Psychiatrist Name of Psychiatrist: JOSHUA Psychiatrist's Date Of Appointment With Psychiatric Provider: 08/05/23 Time of Appointment with Psychiatrist: 1:15pm Psychiatric Appointment Comment: post hospital visit Therapist Name of Therapist: willing for referral Product Inspection Coordinator Name of Product Inspection Coordinator: willing for referral Post Discharge Appointments Primary Care Physician Name Of Family Doctor/PCP: Dr. Maki Date of Future Appointment with PCP: 08/03/23 Time of Appointment with PCP: 1:20pm Provider Appointment Comment: post hospital visit - will see Lalitha
[2023-08-01] MEDS: PALIPERIDONE 1.5 MG TABCR PO SCH (21:10)
[2023-08-02 08:10] LABS: Albumin Globulin Ratio 1.6 (0.9-2); Albumin Level 3.2 gm/dl (3.4-5.0); BUN Creatinine Ratio 52.8 (10-20); Bilirubin,Total 0.6 mg/dl (0.2-1.0); Calcium 8.7 mg/dl (8.6-10.3); Creatinine Clr Calc Pharmacy 71.8 ml/min; Est GFR (African American) 110.8 ml/min; Est GFR (Non-African American) 95.6 ml/min; Total Protein 5.2 gm/dl (6.0-8.3)
[2023-08-02 10:07] LABS: Magnesium 1.9 mg/dl (1.7-2.4); Phosphorus 3.8 mg/dl (2.5-4.9)
--- NOTE | 2023-08-02 15:10 | Consultation ---
Date of Consultation August 02, 2023 Assessment & Plan (1) Psychogenic polydipsia: (2) Chronic hyponatremia: (3) Anorexia nervosa: (4) MDD (major depressive disorder), recurrent, severe, with psychosis: Plan Patient with very mild hyponatremia. This change may even be within the diagnostic error of the lab machine. However, it does appear that the patient has been over her fluid restriction the last 2 days. Patient's symptoms this morning is not attributable to her sodium level. A sodium of 133 would not give her any symptoms. I would look more towards the new medication she just started as a potential source of her symptoms. Recommendation is to strictly adhere to the 1500 cc fluid restriction. I believe we have more success of maintaining her to 1500 cc then to restrict her fluid intake even more. Patient may also have a liberal salt diet. Recommend rechecking sodium level in 2 to 3 days. Please contact covering hospitalist if sodium level less than 126. Nursing staff reported that patient has a family history of Maryann's. Had been following with outpatient neurology but did not follow-up with appointments or testing. Would recommend outpatient neurology follow-up after discharge from [facility] to pursue evaluation outpatient. No recommendation for in- hospital evaluation at this time. Will sign off, please call with new questions or concerns History of Present Illness Requesting Physician: Dr. Ramires Reason for Consultation: Hyponatremia Attending Physician: Hong Ramires MD History of Present Illness Patient on the [facility] unit for psychogenic polydipsia and eating disorder. Requested to reevaluate the patient for a slight decrease in her sodium levels. Communication with the nurse reports that she has been pretty well compliant with fluid restriction. It was concerned that the patient seemed a little bit off on her mental status today and may have had a little bit of issue with coordination today. Time of my evaluation patient is resting comfortably in bed. She thinks that she is eating too much. She also feels that she is really dehydrated and is not getting enough water. She denies any chest pain or shortness of breath. Allergies Allergy/AdvReac Type Severity Reaction Status Date / Time latex Allergy Intermediate Rash Verified 07/03/23 15:56 peanut Allergy Intermediate EDEMA/RASH Verified 07/03/23 15:56 wheat Allergy Intermediate CELIAC Verified 07/03/23 15:56 DISEASE escitalopram AdvReac Severe Seizure Verified 07/03/23 15:56 oxycodone AdvReac Severe Seizure Verified 07/03/23 15:56 acetaminophen AdvReac Intermediate Vomiting Verified 07/03/23 15:56 bupropion [From Wellbutrin] AdvReac Intermediate VISUAL Verified 07/03/23 15:56 DISTURBANCE Home Medications Medication Instructions Recorded Confirmed Type fluticasone propionate 50 2 spray intranasal QAM PRN 05/07/23 07/27/23 History mcg/actuation nasal Congestion spray,suspension buspirone 7.5 mg tablet 5 mg (0.6667 x 7.5 mg) PO BID #0 07/06/23 07/27/23 Rx tabs haloperidol 5 mg tablet 2.5 mg (1/2 x 5 mg) PO HS #30 tabs 07/06/23 07/27/23 Rx potassium chloride 10 mEq 20 meq (2 x 10 mEq) PO DAILY #60 07/06/23 07/27/23 Rx tablet,extended release(part/cryst) tabs Patient History Medical History Pelvic fracture Lumbar disc disease No chronic diseases present Surgical History Status post endovenous radiofrequency ablation (RFA) of saphenous vein Inguinal hernia No significant past surgical history Family History Mother Breast cancer Social History Smoking Status: Former smoker Hx Alcohol Use: No Hx Substance Use: No Preferred Language: Tamaz[place] Communication Ability: Effective Agricultural Produce 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 Lungs: Clear to auscultation, decreased, no wheezes rales or rhonchi CV: S1-S2, regular Abdomen: Soft, nontender, nondistended Extremities: No significant edema Neuro: No focal deficits Psych: Cooperative, flat affect Results & Data Vital Signs (Past 12 Hours) Vital Signs Temp Pulse Resp BP 08/02/23 06:47 101 H 105/72 08/02/23 06:46 36.8 C 93 H 16 118/83 Diagnostic Findings Reviewed imaging, laboratory and diagnostic studies. Pertinent findings as below. Reviewing I&O, if they are correct, patient is already over her 1500 cc fluid restriction today. She was over yesterday as well. Sodium 133
[2023-08-02] MEDS: MAGNESIUM HYDROXIDE SUSP 30 ML UDC PO PRN (17:28)
--- NOTE | 2023-08-02 18:42 | Psychiatric Progress Note ---
Date of Service August 02, 2023 Impression / Recommendations Impression 53 yo woman with a history of anorexia, psychogenic polydipsia and depression vs BPAD admitted for increased restriction, weight loss, depression and excessive fluid intake. A: Concern for severe depression with psychosis. Given the patient's severe depression, psychotic features and significantly poor food intake in the setting of hyponatremia and psychogenic polydipsia may benefit from electroconvulsive therapy for quick resolution of symptoms especially given concerns that psychotropics for depression and psychosis may further contribute towards hyponatremia. Elevated thirst response. Labs reviewed: ESR, creatinine, phosphorus, magnesium within range. Sodium of 133. Hospitalist consulted for recommendations: Slight variation in sodium may be machine error and likely not symptomatic, continue to check every 2 to 3 days, and force 1500 cc fluid restriction. Documented family history of Maryann's and recommend outpatient neurology follow-up. Plan to increase lorazepam to 2 mg at bedtime. MNPR due to on-going psychosis and severe depression. Overall I spent a total of 60 minutes for this admission including review of chart records, review of labwork, direct evaluation of the patient, counseling the patient, ordering medication, risk assessment, gathering collateral, orders and documentation in the electronic health record. (1) MDD (major depressive disorder), recurrent, severe, with psychosis: (2) Eating disorder: (3) Psychogenic polydipsia: (4) Anorexia nervosa: Plan 08/02/2023: Increase lorazepam to 2 mg at bedtime. Recheck sodium and electrolytes in 2 to 3 days. Considering transfer for ECT. 08/01/2023: Check daily weights. Daily multivitamin, calcium and vitamin D supplement twice daily. Labs for CMP and ESR tomorrow morning. Continue Effexor. D/C olanzapine (pt refusing). Start paliperidone 1.5 mg at bedtime. 07/31/2023: Start Effexor XR 37.5 mg daily. Start lorazepam 0.5 mg twice daily and morning and afternoon and lorazepam 1 mg at bedtime. Continue olanzapine and BuSpar. Recheck sodium in 2 days. Continue fluid restriction. Patient MNPR given ongoing paranoia and concern for delusional thoughts. Continue other medications and treatment plan. 07/30/2023: The patient was admitted to the [facility] ([facility] unit) on q15 min checks (behavioral with suicide precautions) for safety. The patient will participate in group, recreational, and milieu therapies and will be offered additional individual and family sessions as clinically appropriate. -Reduce olanzapine to 1.25mg HS po -Start Buspar 3.75mg BID -Mood Disorder Questionnaire to better assess for possible history of BPAD -Fluid restriction of 1.5L per day -Sodium monitoring weekly or prn -Fasting lipid panel and glucose tomorrow AM with Na+ re-check given some difficulty enforcing fluid restrictions on inpatient psychiatric setting Inventory Assets Strengths: supportive relationships, willing to get treatment Needs: safety and stabilization, medication adjustment, additional coping skills, increased outpatient services Suicide Risk Level Suicide Risk Level: Moderate (q15 min suicide checks) (denies current SI but with depression, flat affect, periods of mood lability. Feels safe on the unit and able to ask for support if needed) Risk Factors Assessment Male: No : Yes Do You Have Access To A Gun?: No Mental Health Diagnoses: Yes Previous Attempt: No Family History of Suicide: Yes Previous Psychiatric Hospitalization: No Hopelessness: No Protective Factors Assessment Supportive Family: Yes (brother) Interval History Identifying Information 53 yo woman with a history of anorexia, psychogenic polydipsia and depression vs BPAD admitted for increased restriction, weight loss, depression and excessive fluid intake. Chief Complaint Depression, anxiety, paranoia Review of Systems Sleep Information Total Hours of Sleep: 11.25 Sleep Comments: HS Zyprexa Meal Information Percent Meal Consumed - Breakfast: 100 Percent Meal Consumed - Lunch: 100 Percent Meal Consumed - Dinner: 100 Subjective Subjective Patient was seen & assessed and interval progress reviewed with treatment team nursing and social work Patient presents a flat and nonreactive affect. Minimal answers to questions and limited spontaneous speech. She isolates to her room and turns the lights off. She presents increased thirst. She confirms that depression and anxiety have been a problem for her and have caused dysfunction. She appears goal-oriented to go home with no clear discharge plan and was educated about potential consequences to her health. Introduced electroconvulsive therapy as a treatment option. Physical Exam Mental Examination Appearance: Disheveled Eye Contact: Direct Eye Contact Motor Behavior: Slowed Speech: Soft and Delayed (limited spontaneous speech) Mood: Anxious Affect: Flat (non reactive) Thought Process: [place] (illogical at times) Thought Content: Goal Oriented (paranoia, delusional at times) Hallucinations: None Insight: Poor Judgement: Poor Vital Signs (Past 24 Hours) Last Vital Signs Temp 36.8 C 08/02/23 06:46 Pulse 101 H 08/02/23 06:47 Resp 16 08/02/23 06:46 BP 105/72 08/02/23 06:47 Pulse Ox 98 07/29/23 17:09 O2 Del Method Room Air 07/29/23 17:09 Results & Data ([facility]) Laboratory Results Laboratory Results - last 24 hr 08/02/23 07:28 ESR 4 Sodium 133 L Potassium 4.0 Chloride 102 Carbon Dioxide 29 Anion Gap 2 L BUN 38 H Creatinine 0.72 Est Cr Clr Drug Dosing 71.8 Est GFR ( Amer) 110.8 Est GFR (Non-Af Amer) 95.6 BUN/Creatinine Ratio 52.8 H Glucose 98 Calcium 8.7 Phosphorus 3.8 Magnesium 1.9 Total Bilirubin 0.6 AST 28 ALT 37 Alkaline Phosphatase 43 Total Protein 5.2 L Albumin 3.2 L Globulin 2.0 L Albumin/Globulin Ratio 1.6 Current Inpatient Medications Current Inpatient Medications: Current Inpatient Medications Acetaminophen (Acetaminophen 325 Mg Tab) 650 mg PO Q4H PRN PRN Reason: Headache or Minor Fever Stop: 08/28/23 16:14 Al Hydrox/Mg Hydrox/Simethicone (Aluminum/Magnesium Susp 30 Ml Udc) 30 ml PO Q4H PRN PRN Reason: GI Upset Stop: 08/28/23 16:14 Bismuth Subsalicylate (Bismuth Subsalicylate Liqd 236 Ml) 15 ml PO PRN PRN PRN Reason: Loose Stool Stop: 08/28/23 16:14 Buspirone HCl (Buspirone 7.5 Mg Tab) 3.75 mg PO BID ANDRE Stop: 08/29/23 20:59 Last Admin: 08/02/23 08:29 Dose: 3.75 mg Calcium/Vitamin D (Calcium 600mg + Vit D 400 Iu Tab) 1 tab PO BID ANDRE Stop: 08/31/23 11:29 Last Admin: 08/02/23 08:29 Dose: 1 tab Hydroxyzine HCl (Hydroxyzine Hcl 25 Mg Tab) 50 mg PO HSZ PRN PRN Reason: Insomnia Stop: 08/28/23 16:14 Hydroxyzine HCl (Hydroxyzine Hcl 25 Mg Tab) 25 mg PO Q4H PRN PRN Reason: Anxiety Stop: 08/28/23 16:14 Last Admin: 07/29/23 17:27 Dose: 25 mg Lorazepam (Lorazepam 0.5 Mg Tab) 0.5 mg PO BID@0800,1400 ANDRE Stop: 08/30/23 13:59 Last Admin: 08/02/23 14:49 Dose: 0.5 mg Lorazepam (Lorazepam 1 Mg Tab) 2 mg PO HS ANDRE Stop: 09/01/23 21:59 Magnesium Hydroxide (Magnesium Hydroxide Susp 30 Ml Udc) 30 ml PO DAILY PRN PRN Reason: Constipation Stop: 08/28/23 16:14 Last Admin: 08/02/23 17:28 Dose: 30 ml Multivitamins/Folic Acid/Vitamin C (Multivitamin Chewable Tab) 1 tab PO QAM ANDRE Stop: 08/31/23 11:29 Last Admin: 08/02/23 08:29 Dose: 1 tab Paliperidone (Paliperidone 1.5 Mg Tabcr) 1.5 mg PO HS ANDRE Stop: 08/31/23 21:59 Last Admin: 08/01/23 21:10 Dose: 1.5 mg Sodium Chloride (Sodium Chloride 0.65% Na Soln 45 Ml ([place])) 1 - 2 sprays NA PRN PRN PRN Reason: Nasal Dryness/Congestion Stop: 08/28/23 16:14 Venlafaxine HCl (Venlafaxine Hcl Xr 37.5 Mg Capxr) 37.5 mg PO QAM ANDRE Stop: 08/30/23 13:59 Last Admin: 08/02/23 08:29 Dose: 37.5 mg Mental Health & Subst Abuse Tx Psychiatrist Name of Psychiatrist: JOSHUA Psychiatrist's Date Of Appointment With Psychiatric Provider: 08/05/23 Time of Appointment with Psychiatrist: 1:15pm Psychiatric Appointment Comment: post hospital visit Therapist Name of Therapist: willing for referral Staff Analyst Name of Staff Analyst: willing for referral Post Discharge Appointments Primary Care Physician Name Of Family Doctor/PCP: Dr. Maki Date of Future Appointment with PCP: 08/03/23 Time of Appointment with PCP: 1:20pm Provider Appointment Comment: post hospital visit - will see P.ABerenice
[2023-08-02] MEDS: ALUMINUM/MAGNESIUM SUSP 30 ML UDC PO PRN (19:19)
[2023-08-02] MEDS: LORazepam 1 MG TAB PO SCH (21:12)
--- NOTE | 2023-08-03 13:01 | Psychiatric Progress Note ---
Date of Service August 03, 2023 Impression / Recommendations Impression 53 yo woman with a history of anorexia, psychogenic polydipsia and depression vs BPAD admitted for increased restriction, weight loss, depression and excessive fluid intake. A: Concern for severe depression with psychosis. Given the patient's severe depression, psychotic features and significantly poor food intake in the setting of hyponatremia and psychogenic polydipsia may benefit from electroconvulsive therapy for quick resolution of symptoms especially given concerns that psychotropics for depression and psychosis may further contribute towards hyponatremia. Elevated thirst response. Plan to recheck sodium tomorrow. We will optimize her antidepressant and antipsychotic today. Plan to gather collateral from brother regarding patient's progress. We will introduce ECT and educate patient. MNPR due to on-going psychosis and severe depression. Overall I spent a total of 60 minutes for this admission including review of chart records, review of labwork, direct evaluation of the patient, counseling the patient, ordering medication, risk assessment, gathering collateral, orders and documentation in the electronic health record. (1) MDD (major depressive disorder), recurrent, severe, with psychosis: (2) Eating disorder: (3) Psychogenic polydipsia: (4) Anorexia nervosa: Plan 08/03/2023: Increase Effexor XR to 75 mg daily. Increase paliperidone to 3 mg at bedtime. Recheck sodium tomorrow. 08/02/2023: Increase lorazepam to 2 mg at bedtime. Recheck sodium and electrolytes in 2 to 3 days. Considering transfer for ECT. 08/01/2023: Check daily weights. Daily multivitamin, calcium and vitamin D supplement twice daily. Labs for CMP and ESR tomorrow morning. Continue Effexor. D/C olanzapine (pt refusing). Start paliperidone 1.5 mg at bedtime. 07/31/2023: Start Effexor XR 37.5 mg daily. Start lorazepam 0.5 mg twice daily and morning and afternoon and lorazepam 1 mg at bedtime. Continue olanzapine and BuSpar. Recheck sodium in 2 days. Continue fluid restriction. Patient MNPR given ongoing paranoia and concern for delusional thoughts. Continue other medications and treatment plan. 07/30/2023: The patient was admitted to the [facility] ([facility]) on q15 min checks (behavioral with suicide precautions) for safety. The patient will participate in group, recreational, and milieu therapies and will be offered additional individual and family sessions as clinically appropriate. -Reduce olanzapine to 1.25mg HS po -Start Buspar 3.75mg BID -Mood Disorder Questionnaire to better assess for possible history of BPAD -Fluid restriction of 1.5L per day -Sodium monitoring weekly or prn -Fasting lipid panel and glucose tomorrow AM with Na+ re-check given some difficulty enforcing fluid restrictions on inpatient psychiatric setting Inventory Assets Strengths: supportive relationships, willing to get treatment Needs: safety and stabilization, medication adjustment, additional coping skills, increased outpatient services Suicide Risk Level Suicide Risk Level: Moderate (q15 min suicide checks) (denies current SI but with depression, flat affect, periods of mood lability. Feels safe on the unit a nd able to ask for support if needed) Risk Factors Assessment Male: No : Yes Do You Have Access To A Gun?: No Mental Health Diagnoses: Yes Previous Attempt: No Family History of Suicide: Yes Previous Psychiatric Hospitalization: No Hopelessness: No Protective Factors Assessment Supportive Family: Yes (brother) Interval History Identifying Information 53 yo woman with a history of anorexia, psychogenic polydipsia and depression vs BPAD admitted for increased restriction, weight loss, depression and excessive fluid intake. Chief Complaint Anxiety, depression, psychosis Review of Systems Sleep Information Total Hours of Sleep: 7 Sleep Comments: HS Zyprexa Meal Information Percent Meal Consumed - Breakfast: 100 Percent Meal Consumed - Lunch: 100 Percent Meal Consumed - Dinner: 100 Subjective Subjective Patient was seen & assessed and interval progress reviewed with nursing and social work On interview patient reports feeling worse when eating. has appetite and is able to eat. minimally responsive with a flat affect; limited spontaneous speech. reports that she is worrying about her dog who are with her brother. Confirms that brother can take care of them. Complains of being tired and has low energy. Reports sleeping well at the beginning of the night and then cannot sleep after. Feels safe in her surroundings and denies feelings that anyone is out to get her. Denies suicidal ideation and auditory visual hallucinations. Interested in ECT and wants to learn more. Updated about reasons for hospitalization and concern about depression. Confirms that her depression has been bad lately and she has not been able to function at the same. Updated about medication changes and agreeable. No other concerns presented. Physical Exam Mental Examination Appearance: Disheveled Eye Contact: Direct Eye Contact Motor Behavior: Slowed Speech: Soft and Delayed (limited spontaneous speech) Mood: Anxious Affect: Flat (non reactive) Thought Process: [place] (illogical at times) Thought Content: Goal Oriented (paranoia, delusional at times) Hallucinations: None Insight: Poor Judgement: Poor Vital Signs (Past 24 Hours) Last Vital Signs Temp 37.4 C 08/03/23 06:43 Pulse 125 H 08/03/23 06:44 Resp 16 08/03/23 06:43 BP 102/77 08/03/23 06:44 Pulse Ox 98 07/29/23 17:09 O2 Del Method Room Air 07/29/23 17:09 Results & Data (U) Current Inpatient Medications Current Inpatient Medications: Current Inpatient Medications Acetaminophen (Acetaminophen 325 Mg Tab) 650 mg PO Q4H PRN PRN Reason: Headache or Minor Fever Stop: 08/28/23 16:14 Al Hydrox/Mg Hydrox/Simethicone (Aluminum/Magnesium Susp 30 Ml Udc) 30 ml PO Q4H PRN PRN Reason: GI Upset Stop: 08/28/23 16:14 Last Admin: 08/02/23 19:19 Dose: 30 ml Bismuth Subsalicylate (Bismuth Subsalicylate Liqd 236 Ml) 15 ml PO PRN PRN PRN Reason: Loose Stool Stop: 08/28/23 16:14 Buspirone HCl (Buspirone 7.5 Mg Tab) 3.75 mg PO BID ANDRE Stop: 08/29/23 20:59 Last Admin: 08/03/23 09:11 Dose: 3.75 mg Calcium/Vitamin D (Calcium 600mg + Vit D 400 Iu Tab) 1 tab PO BID ANDRE Stop: 08/31/23 11:29 Last Admin: 08/03/23 09:10 Dose: 1 tab Hydroxyzine HCl (Hydroxyzine Hcl 25 Mg Tab) 50 mg PO HSZ PRN PRN Reason: Insomnia Stop: 08/28/23 16:14 Hydroxyzine HCl (Hydroxyzine Hcl 25 Mg Tab) 25 mg PO Q4H PRN PRN Reason: Anxiety Stop: 08/28/23 16:14 Last Admin: 07/29/23 17:27 Dose: 25 mg Lorazepam (Lorazepam 0.5 Mg Tab) 0.5 mg PO BID@0800,1400 ANDRE Stop: 08/30/23 13:59 Last Admin: 08/03/23 09:11 Dose: 0.5 mg Lorazepam (Lorazepam 1 Mg Tab) 2 mg PO HS ANDRE Stop: 09/01/23 21:59 Last Admin: 08/02/23 21:12 Dose: 2 mg Magnesium Hydroxide (Magnesium Hydroxide Susp 30 Ml Udc) 30 ml PO DAILY PRN PRN Reason: Constipation Stop: 08/28/23 16:14 Last Admin: 08/02/23 17:28 Dose: 30 ml Multivitamins/Folic Acid/Vitamin C (Multivitamin Chewable Tab) 1 tab PO QAM ANDRE Stop: 08/31/23 11:29 Last Admin: 08/03/23 09:10 Dose: 1 tab Paliperidone (Paliperidone 3 Mg Tabcr) 3 mg PO HS ANDRE Stop: 08/31/23 21:59 Sodium Chloride (Sodium Chloride 0.65% Na Soln 45 Ml ([place])) 1 - 2 sprays NA PRN PRN PRN Reason: Nasal Dryness/Congestion Stop: 08/28/23 16:14 Venlafaxine HCl (Venlafaxine Hcl Xr 75 Mg Capxr) 75 mg PO QAM ANDRE Stop: 09/03/23 08:59 Mental Health & Subst Abuse Tx Psychiatrist Name of Psychiatrist: JOSHUA Psychiatrist's Date Of Appointment With Psychiatric Provider: 08/05/23 Time of Appointment with Psychiatrist: 1:15pm Psychiatric Appointment Comment: post hospital visit Therapist Name of Therapist: willing for referral Echo Vascular Tech Name of Echo Vascular Tech: [facility] - Francesca Phone Number for Echo Vascular Tech: Case Management Appointment Comment: Francesca will meet with you at your home. Post Discharge Appointments Primary Care Physician Name Of Family Doctor/PCP: Dr. Maki Date of Future Appointment with PCP: . Time of Appointment with PCP: . Provider Appointment Comment: . Contact Information [facility] [facility] [address] [facility] [facility] [address]
--- NOTE | 2023-08-03 13:34 | Communication Note ---
Date of Service: August 03, 2023 Called pt Brother (RISHI ERWIN -[phone]): Updated about care planm, progress, medications. Pt has not mentioned anything about paranoid to brother. Pt presents self criticism that is non constructive. "Feels awful and selfish" which is out of the ordinary. Blaming self for illness. Brother has been providing reassurance. Seeing improvement.
[2023-08-03] MEDS: PALIPERIDONE 3 MG TABCR PO SCH (21:14)
[2023-08-04] MEDS: VENLAFAXINE HCL XR 75 MG CAPXR PO SCH (08:28)
[2023-08-04] MEDS: POLYETHYLENE (MIRALAX) 17 GM PACK PO ONE (12:58)
[2023-08-04] MEDS ORDERED: LORazepam 0.5 MG TAB PO SCH (14:00)
[2023-08-04] MEDS: DOCUSATE SODIUM 100 MG CAP PO SCH (14:16)
[2023-08-04] MEDS: LORazepam 0.5 MG TAB PO SCH (14:16)
--- NOTE | 2023-08-04 15:21 | Psychiatric Progress Note ---
Date of Service August 04, 2023 Impression / Recommendations Impression 53 yo woman with a history of anorexia, psychogenic polydipsia and depression vs BPAD admitted for increased restriction, weight loss, depression and excessive fluid intake. A: Patient continues to present a a flat and nonreactive affect. Depression is slowly improving however still severe. No recent signs of psychosis and improving. Concern for mild delirium as she is recovering from hyponatremia and may contribute to gait problems. Today sodium level has increased to 135; continue water restriction and liberal salt diet. Will schedule Colace and start MiraLAX as needed for bowel movement and constipation. Plan to recheck sodium in 2 days. MNPR due to on-going psychosis and severe depression. Overall I spent a total of 60 minutes for this admission including review of chart records, review of labwork, direct evaluation of the patient, counseling the patient, ordering medication, risk assessment, gathering collateral, orders and documentation in the electronic health record. (1) MDD (major depressive disorder), recurrent, severe, with psychosis: (2) Eating disorder: (3) Psychogenic polydipsia: (4) Anorexia nervosa: Plan 08/04/2023: Start Colace 100 mg twice daily and MiraLAX as needed for constipation. Recheck sodium levels in 2 days. Continue other medications and treatment plan. 08/03/2023: Increase Effexor XR to 75 mg daily. Increase paliperidone to 3 mg at bedtime. Recheck sodium tomorrow. 08/02/2023: Increase lorazepam to 2 mg at bedtime. Recheck sodium and electrolytes in 2 to 3 days. Considering transfer for ECT. 08/01/2023: Check daily weights. Daily multivitamin, calcium and vitamin D supplement twice daily. Labs for CMP and ESR tomorrow morning. Continue Effexor. D/C olanzapine (pt refusing). Start paliperidone 1.5 mg at bedtime. 07/31/2023: Start Effexor XR 37.5 mg daily. Start lorazepam 0.5 mg twice daily and morning and afternoon and lorazepam 1 mg at bedtime. Continue olanzapine and BuSpar. Recheck sodium in 2 days. Continue fluid restriction. Patient MNPR given ongoing paranoia and concern for delusional thoughts. Continue other medications and treatment plan. 07/30/2023: The patient was admitted to the [facility] (locked inpatient mental health unit) on q15 min checks (behavioral with suicide precautions) for safety. The patient will participate in group, recreational, and milieu therapies and will be offered additional individual and family sessions as clinically appropriate. -Reduce olanzapine to 1.25mg HS po -Start Buspar 3.75mg BID -Mood Disorder Questionnaire to better assess for possible history of BPAD -Fluid restriction of 1.5L per day -Sodium monitoring weekly or prn -Fasting lipid panel and glucose tomorrow AM with Na+ re-check given some difficulty enforcing fluid restrictions on inpatient psychiatric setting Inventory Assets Strengths: supportive relationships, willing to get treatment Needs: safety and stabilization, medication adjustment, additional coping skills, increased outpatient services Suicide Risk Level Suicide Risk Level: Moderate (q15 min suicide checks) (denies current SI but with depression, flat affect, periods of mood lability. Feels safe on the unit and able to ask for support if needed) Risk Factors Assessment Male: No : Yes Do You Have Access To A Gun?: No Mental Health Diagnoses: Yes Previous Attempt: No Family History of Suicide: Yes Previous Psychiatric Hospitalization: No Hopelessness: No Protective Factors Assessment Supportive Family: Yes (brother) Interval History Identifying Information 53 yo woman with a history of anorexia, psychogenic polydipsia and depression vs BPAD admitted for increased restriction, weight loss, depression and excessive fluid intake. Chief Complaint Depression Review of Systems Sleep Information Total Hours of Sleep: 6.5 Sleep Comments: HS Zyprexa Meal Information Percent Meal Consumed - Breakfast: 100 Percent Meal Consumed - Lunch: 100 Percent Meal Consumed - Dinner: 90 Subjective Subjective Patient was seen & assessed and interval progress reviewed with treatment team nursing and social work Patient reports dropping her tray this morning. Reports that she was clumsy and had difficulty walking straight even at home prior to hospitalization. Reports that her mood is better. Feels "uneasy" whenever she eats food. Asking to be discharged so she can go to her and get back to work. Reports not being as thirsty as she was on admission however asked for extra fluids. Denies suicidal ideation. Reports future plans to spend time with her dog. Reports that she still enjoys dancing at home. Is complaining of constipation and lack of bowel movement. Updated about sodium status. No further concerns reported. Physical Exam Mental Examination Appearance: Disheveled Eye Contact: Direct Eye Contact Motor Behavior: Slowed Speech: Soft and Delayed (limited spontaneous speech) Mood: Anxious Affect: Flat (non reactive) Thought Process: [place] (illogical at times) Thought Content: Goal Oriented (paranoia, delusional at times) Hallucinations: None Insight: Poor Judgement: Poor Vital Signs (Past 24 Hours) Last Vital Signs Temp 36.4 C L 08/04/23 14:36 Pulse 70 08/04/23 14:36 Resp 16 08/04/23 14:36 BP 108/70 08/04/23 14:36 Pulse Ox 98 07/29/23 17:09 O2 Del Method Room Air 07/29/23 17:09 Results & Data ([facility]) Laboratory Results Laboratory Results - last 24 hr 08/04/23 07:44 Sodium 135 L Current Inpatient Medications Current Inpatient Medications: Current Inpatient Medications Acetaminophen (Acetaminophen 325 Mg Tab) 650 mg PO Q4H PRN PRN Reason: Headache or Minor Fever Stop: 08/28/23 16:14 Al Hydrox/Mg Hydrox/Simethicone (Aluminum/Magnesium Susp 30 Ml Udc) 30 ml PO Q4H PRN PRN Reason: GI Upset Stop: 08/28/23 16:14 Last Admin: 08/02/23 19:19 Dose: 30 ml Bismuth Subsalicylate (Bismuth Subsalicylate Liqd 236 Ml) 15 ml PO PRN PRN PRN Reason: Loose Stool Stop: 08/28/23 16:14 Calcium/Vitamin D (Calcium 600mg + Vit D 400 Iu Tab) 1 tab PO BID ANDRE Stop: 08/31/23 11:29 Last Admin: 08/04/23 08:27 Dose: 1 tab Docusate Sodium (Docusate Sodium 100 Mg Cap) 100 mg PO BID ANDRE Stop: 09/03/23 12:29 Last Admin: 08/04/23 14:16 Dose: 100 mg Hydroxyzine HCl (Hydroxyzine Hcl 25 Mg Tab) 50 mg PO HSZ PRN PRN Reason: Insomnia Stop: 08/28/23 16:14 Hydroxyzine HCl (Hydroxyzine Hcl 25 Mg Tab) 25 mg PO Q4H PRN PRN Reason: Anxiety Stop: 08/28/23 16:14 Last Admin: 07/29/23 17:27 Dose: 25 mg Lorazepam (Lorazepam 1 Mg Tab) 2 mg PO HS ANDRE Stop: 09/01/23 21:59 Last Admin: 08/03/23 21:14 Dose: 2 mg Lorazepam (Lorazepam 0.5 Mg Tab) 0.5 mg PO BID@0800,1400 ANDRE Stop: 09/03/23 13:59 Last Admin: 08/04/23 14:16 Dose: 0.5 mg Magnesium Hydroxide (Magnesium Hydroxide Susp 30 Ml Udc) 30 ml PO DAILY PRN PRN Reason: Constipation Stop: 08/28/23 16:14 Last Admin: 08/02/23 17:28 Dose: 30 ml Multivitamins/Folic Acid/Vitamin C (Multivitamin Chewable Tab) 1 tab PO QAM ANDRE Stop: 08/31/23 11:29 Last Admin: 08/04/23 08:28 Dose: 1 tab Paliperidone (Paliperidone 3 Mg Tabcr) 3 mg PO HS ANDRE Stop: 08/31/23 21:59 Last Admin: 08/03/23 21:14 Dose: 3 mg Polyethylene Glycol (Polyethylene (Miralax) 17 Gm Pack) 17 gm PO DAILY PRN PRN Reason: Constipation Stop: 09/03/23 13:08 Sodium Chloride (Sodium Chloride 0.65% Na Soln 45 Ml ([place])) 1 - 2 sprays NA PRN PRN PRN Reason: Nasal Dryness/Congestion Stop: 08/28/23 16:14 Venlafaxine HCl (Venlafaxine Hcl Xr 75 Mg Capxr) 75 mg PO QAM ANDRE Stop: 09/03/23 08:59 Last Admin: 08/04/23 08:28 Dose: 75 mg Mental Health & Subst Abuse Tx Psychiatrist Name of Psychiatrist: JOSHUA Psychiatrist's Date Of Appointment With Psychiatric Provider: 08/20/23 Time of Appointment with Psychiatrist: 11:15 am Psychiatric Appointment Comment: post hospital visit Therapist Name of Therapist: willing for referral Wet Cotton Feeder Name of Wet Cotton Feeder: [facility] Phone Number for Wet Cotton Feeder: Case Management Appointment Comment: Francesca will meet with you at your home. Post Discharge Appointments Primary Care Physician Name Of Family Doctor/PCP: Dr. Maki Date of Future Appointment with PCP: . Time of Appointment with PCP: . Provider Appointment Comment: . Contact Information Discharge Discharge Address: [address], [facility] [address]
[2023-08-04] MEDS: SENNA 8.6 MG TAB PO STA (20:27)
[2023-08-05] MEDS: POLYETHYLENE (MIRALAX) 17 GM PACK PO PRN (09:09)
[2023-08-05] MEDS: SOD PHOSPHATE/SOD BIPHOSPHATE ENEMA 132 ML BTL PR STA (12:07)
--- NOTE | 2023-08-05 14:53 | Psychiatric Progress Note ---
Date of Service August 05, 2023 Impression / Recommendations Impression 53 yo woman with a history of anorexia, psychogenic polydipsia and depression vs BPAD admitted for increased restriction, weight loss, depression and excessive fluid intake. A: Today patient presents a brighter and more reactive affect. Increased spontaneous speech and appears to be more energetic. Mild lower extremity edema common and refeeding and does not appear to be problematic. Colace increased to 200 mg twice daily given constipation concerns. Patient presents an improved future outlook and presents an improved view of self. Plan to recheck electrolytes. MNPR due to severe depression and recent psychosis. Overall I spent a total of 60 minutes for this admission including review of chart records, review of labwork, direct evaluation of the patient, counseling the patient, ordering medication, risk assessment, gathering collateral, orders and documentation in the electronic health record. (1) MDD (major depressive disorder), recurrent, severe, with psychosis: Present on Admission?: Yes (2) Eating disorder: (3) Psychogenic polydipsia: (4) Anorexia nervosa: (5) Chronic hyponatremia: Plan 08/05/2023: Colace 200 mg twice daily. Tomorrow a.m. BMP/phosphorus/magnesium levels. Continue medications and treatment plan. Plan to decrease benzodiazepines prior to discharge. 08/04/2023: Start Colace 100 mg twice daily and MiraLAX as needed for constipation. Recheck sodium levels in 2 days. Continue other medications and treatment plan. 08/03/2023: Increase Effexor XR to 75 mg daily. Increase paliperidone to 3 mg at bedtime. Recheck sodium tomorrow. 08/02/2023: Increase lorazepam to 2 mg at bedtime. Recheck sodium and electrolytes in 2 to 3 days. Considering transfer for ECT. 08/01/2023: Check daily weights. Daily multivitamin, calcium and vitamin D supplement twice daily. Labs for CMP and ESR tomorrow morning. Continue Effexor. D/C olanzapine (pt refusing). Start paliperidone 1.5 mg at bedtime. 07/31/2023: Start Effexor XR 37.5 mg daily. Start lorazepam 0.5 mg twice daily and morning and afternoon and lorazepam 1 mg at bedtime. Continue olanzapine and BuSpar. Recheck sodium in 2 days. Continue fluid restriction. Patient MNPR given ongoing paranoia and concern for delusional thoughts. Continue other medications and treatment plan. 07/30/2023: The patient was admitted to the [facility] ([facility] inpatient mental health unit) on q15 min checks (behavioral with suicide precautions) for safety. The patient will participate in group, recreational, and milieu therapies and will be offered additional individual and family sessions as clinically appropriate. -Reduce olanzapine to 1.25mg HS po -Start Buspar 3.75mg BID -Mood Disorder Questionnaire to better assess for possible history of BPAD -Fluid restriction of 1.5L per day -Sodium monitoring weekly or prn -Fasting lipid panel and glucose tomorrow AM with Na+ re-check given some difficulty enforcing fluid restrictions on inpatient psychiatric setting Inventory Assets Strengths: supportive relationships, willing to get treatment Needs: safety and stabilization, medication adjustment, additional coping skills, increased outpatient services Suicide Risk Level Suicide Risk Level: Moderate (q15 min suicide checks) (denies current SI but with depression, flat affect, periods of mood lability. Feels safe on the unit and able to ask for support if needed) Risk Factors Assessment Male: No : Yes Do You Have Access To A Gun?: No Mental Health Diagnoses: Yes Previous Attempt: No Family History of Suicide: Yes Previous Psychiatric Hospitalization: No Hopelessness: No Protective Factors Assessment Supportive Family: Yes (brother) Interval History Identifying Information 53 yo woman with a history of anorexia, psychogenic polydipsia and depression vs BPAD admitted for increased restriction, weight loss, depression and excessive fluid intake. Chief Complaint Anxiety, depression, hyponatremia. Review of Systems Sleep Information Total Hours of Sleep: 6.5 Sleep Comments: HS Zyprexa Meal Information Percent Meal Consumed - Breakfast: 100 Percent Meal Consumed - Lunch: 100 Percent Meal Consumed - Dinner: 100 Subjective Subjective Patient was seen & assessed and interval progress reviewed with nursing and social work Overnight patient had impacted stool. MiraLAX and senna and effective. Fleet enema given an effective for bowel movement. Mild pitting edema in lower extremities. Patient appears more bright and reactive today. Smiling at times and appears energetic. Reports having more energy and is seen brushing her teeth. Reports having increased anxiety in the afternoon and likes the Ativan. Embarrassed by the help that she needed for a bowel movement. Looking forward to her brother visiting today. Interested in leaving middle next week so she can prepare and go to her mother's neck Wednesday. Updated about her health status and reassured. She denies suicidal ideation. Is interested in returning to work and asked for a letter. Physical Exam Mental Examination Appearance: Disheveled Eye Contact: Direct Eye Contact Motor Behavior: Slowed Speech: Soft and Delayed Mood: Anxious Affect: Constricted Thought Process: [place] and Linear Thought Content: Goal Oriented Hallucinations: None Insight: Fair (improved) Judgement: Poor (improving) Vital Signs (Past 24 Hours) Last Vital Signs Temp 36.9 C 08/05/23 06:38 Pulse 106 H 08/05/23 06:39 Resp 16 08/05/23 06:38 BP 94/61 L 08/05/23 06:39 Pulse Ox 98 07/29/23 17:09 O2 Del Method Room Air 07/29/23 17:09 Results & Data ([facility]) Current Inpatient Medications Current Inpatient Medications: Current Inpatient Medications Acetaminophen (Acetaminophen 325 Mg Tab) 650 mg PO Q4H PRN PRN Reason: Headache or Minor Fever Stop: 08/28/23 16:14 Al Hydrox/Mg Hydrox/Simethicone (Aluminum/Magnesium Susp 30 Ml Udc) 30 ml PO Q4H PRN PRN Reason: GI Upset Stop: 08/28/23 16:14 Last Admin: 08/02/23 19:19 Dose: 30 ml Bismuth Subsalicylate (Bismuth Subsalicylate Liqd 236 Ml) 15 ml PO PRN PRN PRN Reason: Loose Stool Stop: 08/28/23 16:14 Calcium/Vitamin D (Calcium 600mg + Vit D 400 Iu Tab) 1 tab PO BID ANDRE Stop: 08/31/23 11:29 Last Admin: 08/05/23 08:52 Dose: 1 tab Docusate Sodium (Docusate Sodium 100 Mg Cap) 200 mg PO BID ANDRE Stop: 09/04/23 20:59 Hydroxyzine HCl (Hydroxyzine Hcl 25 Mg Tab) 50 mg PO HSZ PRN PRN Reason: Insomnia Stop: 08/28/23 16:14 Hydroxyzine HCl (Hydroxyzine Hcl 25 Mg Tab) 25 mg PO Q4H PRN PRN Reason: Anxiety Stop: 08/28/23 16:14 Last Admin: 07/29/23 17:27 Dose: 25 mg Lorazepam (Lorazepam 1 Mg Tab) 2 mg PO HS ANDRE Stop: 09/01/23 21:59 Last Admin: 08/04/23 21:15 Dose: 2 mg Lorazepam (Lorazepam 0.5 Mg Tab) 0.5 mg PO BID@0800,1400 ANDRE Stop: 09/03/23 13:59 Last Admin: 08/05/23 14:20 Dose: 0.5 mg Magnesium Hydroxide (Magnesium Hydroxide Susp 30 Ml Udc) 30 ml PO DAILY PRN PRN Reason: Constipation Stop: 08/28/23 16:14 Last Admin: 08/04/23 19:43 Dose: 30 ml Multivitamins/Folic Acid/Vitamin C (Multivitamin Chewable Tab) 1 tab PO QAM ANDRE Stop: 08/31/23 11:29 Last Admin: 08/05/23 08:52 Dose: 1 tab Paliperidone (Paliperidone 3 Mg Tabcr) 3 mg PO HS ANDRE Stop: 08/31/23 21:59 Last Admin: 08/04/23 21:13 Dose: 3 mg Polyethylene Glycol (Polyethylene (Miralax) 17 Gm Pack) 17 gm PO DAILY PRN PRN Reason: Constipation Stop: 09/03/23 13:08 Last Admin: 08/05/23 09:09 Dose: 17 gm Sodium Chloride (Sodium Chloride 0.65% Na Soln 45 Ml ([place])) 1 - 2 sprays NA PRN PRN PRN Reason: Nasal Dryness/Congestion Stop: 08/28/23 16:14 Venlafaxine HCl (Venlafaxine Hcl Xr 75 Mg Capxr) 75 mg PO QAM ANDRE Stop: 09/03/23 08:59 Last Admin: 08/05/23 08:52 Dose: 75 mg Mental Health & Subst Abuse Tx Psychiatrist Name of Psychiatrist: JOSHUA Psychiatrist's Date Of Appointment With Psychiatric Provider: 08/20/23 Time of Appointment with Psychiatrist: 11:15 am Psychiatric Appointment Comment: post hospital visit Therapist Name of Therapist: willing for referral Chairperson Anesthesiology Name of Chairperson Anesthesiology: [facility] Phone Number for Chairperson Anesthesiology: Case Management Appointment Comment: Francesca will meet with you at your home. Post Discharge Appointments Primary Care Physician Name Of Family Doctor/PCP: Dr. Maki Date of Future Appointment with PCP: . Time of Appointment with PCP: . Provider Appointment Comment: . Contact Information Discharge Discharge Address: [address], [facility] [address]
[2023-08-05] MEDS: DOCUSATE SODIUM 100 MG CAP PO SCH (21:18)
[2023-08-06 08:46] LABS: BUN Creatinine Ratio 38.4 (10-20); Calcium 8.6 mg/dl (8.6-10.3); Creatinine Clr Calc Pharmacy 80.1 ml/min; Phosphorus 4.7 mg/dl (2.5-4.9)
--- NOTE | 2023-08-06 14:11 | Psychiatric Progress Note ---
Date of Service August 06, 2023 Impression / Recommendations Impression 53 yo woman with a history of anorexia, psychogenic polydipsia and depression vs BPAD admitted for increased restriction, weight loss, depression and excessive fluid intake. A: Patient presents in an brighter and more reactive affect. Increase spontaneous speech. Engaging in self-care and future planning. Anxious about returning to work however would benefit from slow return. Depression appears to be improving however patient continues to make concerning statements suspicious of psychosis. Labs reviewed: Sodium 136 and now within normal limits; phosphate and magnesium within normal limits. Hyponatremia resolved and no severe risk of refeeding. Plan to decrease nightly lorazepam dose. MNPR due to severe depression and recent psychosis. Overall I spent a total of 60 minutes for this admission including review of chart records, review of labwork, direct evaluation of the patient, counseling the patient, ordering medication, risk assessment, gathering collateral, orders and documentation in the electronic health record. (1) MDD (major depressive disorder), recurrent, severe, with psychosis: (2) Eating disorder: (3) Psychogenic polydipsia: (4) Anorexia nervosa: (5) Chronic hyponatremia: Plan 08/06/2023: Decrease lorazepam at bedtime to 1.5 mg. Continue medications and treatment plan. 08/05/2023: Colace 200 mg twice daily. Tomorrow a.m. BMP/phosphorus/magnesium levels. Continue medications and treatment plan. Plan to decrease benzodiazepines prior to discharge. 08/04/2023: Start Colace 100 mg twice daily and MiraLAX as needed for constipation. Recheck sodium levels in 2 days. Continue other medications and treatment plan. 08/03/2023: Increase Effexor XR to 75 mg daily. Increase paliperidone to 3 mg at bedtime. Recheck sodium tomorrow. 08/02/2023: Increase lorazepam to 2 mg at bedtime. Recheck sodium and electrolytes in 2 to 3 days. Considering transfer for ECT. 08/01/2023: Check daily weights. Daily multivitamin, calcium and vitamin D supplement twice daily. Labs for CMP and ESR tomorrow morning. Continue Effexor. D/C olanzapine (pt refusing). Start paliperidone 1.5 mg at bedtime. 07/31/2023: Start Effexor XR 37.5 mg daily. Start lorazepam 0.5 mg twice daily and morning and afternoon and lorazepam 1 mg at bedtime. Continue olanzapine and BuSpar. Recheck sodium in 2 days. Continue fluid restriction. Patient MNPR given ongoing paranoia and concern for delusional thoughts. Continue other medications and treatment plan. 07/30/2023: The patient was admitted to the [facility] ([facility]) on q15 min checks (behavioral with suicide precautions) for safety. The patient will participate in group, recreational, and milieu therapies and will be offered additional individual and family sessions as clinically appropriate. -Reduce olanzapine to 1.25mg HS po -Start Buspar 3.75mg BID -Mood Disorder Questionnaire to better assess for possible history of BPAD -Fluid restriction of 1.5L per day -Sodium monitoring weekly or prn -Fasting lipid panel and glucose tomorrow AM with Na+ re-check given some difficulty enforcing fluid restrictions on inpatient psychiatric setting Inventory Assets Strengths: supportive relationships, willing to get treatment Needs: safety and stabilization, medication adjustment, additional coping skills, increased outpatient services Suicide Risk Level Suicide Risk Level: Moderate (q15 min suicide checks) (denies current SI but with depression, flat affect, periods of mood lability. Feels safe on the unit and able to ask for support if needed) Risk Factors Assessment Male: No : Yes Do You Have Access To A Gun?: No Mental Health Diagnoses: Yes Previous Attempt: No Family History of Suicide: Yes Previous Psychiatric Hospitalization: No Hopelessness: No Protective Factors Assessment Supportive Family: Yes (brother) Interval History Identifying Information 53 yo woman with a history of anorexia, psychogenic polydipsia and depression vs BPAD admitted for increased restriction, weight loss, depression and excessive fluid intake. Chief Complaint Depression Review of Systems Sleep Information Total Hours of Sleep: 8.30 Sleep Comments: HS Ativan Meal Information Percent Meal Consumed - Breakfast: 100 Percent Meal Consumed - Lunch: 100 Percent Meal Consumed - Dinner: 90 Subjective Subjective Patient was seen & assessed and interval progress reviewed with treatment team nursing and social work Patient seen walking around the unit. Reports feeling "okay" asking about edema in her legs appears to be 1+ and reassured. Has future plans to return to work. Reports having a "nice" visit from her brother yesterday. 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 She woke up at 7 AM and felt more energetic than usual. Reports often sleeping in at home and feeling tired. Reports concentration difficulties that have been present for the past few months and inquiring about ADHD. Reassured and encouraged resolution of depression prior to further evaluation. Nursing reported patient made concerning statement in groups about methamphetamine being in her food. Physical Exam Mental Examination Appearance: Disheveled Eye Contact: Direct Eye Contact Motor Behavior: Slowed Speech: Soft and Delayed Mood: Anxious Affect: Constricted Thought Process: [place] and Linear Thought Content: Goal Oriented Hallucinations: None Insight: Fair (improved) Judgement: Poor (improving) Vital Signs (Past 24 Hours) Last Vital Signs Temp 36.9 C 08/06/23 06:32 Pulse 106 H 08/06/23 06:33 Resp 16 08/06/23 06:32 BP 106/73 08/06/23 06:33 Pulse Ox 98 07/29/23 17:09 O2 Del Method Room Air 07/29/23 17:09 Results & Data ([facility]) Laboratory Results Laboratory Results - last 24 hr 08/06/23 07:16 Sodium 136 Potassium 4.0 Chloride 102 Carbon Dioxide 30 Anion Gap 4 BUN 28 H Creatinine 0.73 Est Cr Clr Drug Dosing 80.1 Est GFR ( Amer) 109.0 Est GFR (Non-Af Amer) 94.0 BUN/Creatinine Ratio 38.4 H Glucose 94 Calcium 8.6 Phosphorus 4.7 Magnesium 2.0 Current Inpatient Medications Current Inpatient Medications: Current Inpatient Medications Acetaminophen (Acetaminophen 325 Mg Tab) 650 mg PO Q4H PRN PRN Reason: Headache or Minor Fever Stop: 08/28/23 16:14 Al Hydrox/Mg Hydrox/Simethicone (Aluminum/Magnesium Susp 30 Ml Udc) 30 ml PO Q4H PRN PRN Reason: GI Upset Stop: 08/28/23 16:14 Last Admin: 08/02/23 19:19 Dose: 30 ml Bismuth Subsalicylate (Bismuth Subsalicylate Liqd 236 Ml) 15 ml PO PRN PRN PRN Reason: Loose Stool Stop: 08/28/23 16:14 Calcium/Vitamin D (Calcium 600mg + Vit D 400 Iu Tab) 1 tab PO BID ANDRE Stop: 08/31/23 11:29 Last Admin: 08/06/23 08:13 Dose: 1 tab Docusate Sodium (Docusate Sodium 100 Mg Cap) 200 mg PO BID ANDRE Stop: 09/04/23 20:59 Last Admin: 08/06/23 08:13 Dose: 200 mg Hydroxyzine HCl (Hydroxyzine Hcl 25 Mg Tab) 50 mg PO HSZ PRN PRN Reason: Insomnia Stop: 08/28/23 16:14 Hydroxyzine HCl (Hydroxyzine Hcl 25 Mg Tab) 25 mg PO Q4H PRN PRN Reason: Anxiety Stop: 08/28/23 16:14 Last Admin: 07/29/23 17:27 Dose: 25 mg Lorazepam (Lorazepam 1 Mg Tab) 2 mg PO HS ANDRE Stop: 09/01/23 21:59 Last Admin: 08/05/23 21:21 Dose: 2 mg Lorazepam (Lorazepam 0.5 Mg Tab) 0.5 mg PO BID@0800,1400 ANDRE Stop: 09/03/23 13:59 Last Admin: 08/06/23 13:32 Dose: 0.5 mg Magnesium Hydroxide (Magnesium Hydroxide Susp 30 Ml Udc) 30 ml PO DAILY PRN PRN Reason: Constipation Stop: 08/28/23 16:14 Last Admin: 08/04/23 19:43 Dose: 30 ml Multivitamins/Folic Acid/Vitamin C (Multivitamin Chewable Tab) 1 tab PO QAM ANDRE Stop: 08/31/23 11:29 Last Admin: 08/06/23 08:13 Dose: 1 tab Paliperidone (Paliperidone 3 Mg Tabcr) 3 mg PO HS ANDRE Stop: 08/31/23 21:59 Last Admin: 08/05/23 21:19 Dose: 3 mg Polyethylene Glycol (Polyethylene (Miralax) 17 Gm Pack) 17 gm PO DAILY PRN PRN Reason: Constipation Stop: 09/03/23 13:08 Last Admin: 08/05/23 09:09 Dose: 17 gm Sodium Chloride (Sodium Chloride 0.65% Na Soln 45 Ml ([place])) 1 - 2 sprays NA PRN PRN PRN Reason: Nasal Dryness/Congestion Stop: 08/28/23 16:14 Venlafaxine HCl (Venlafaxine Hcl Xr 75 Mg Capxr) 75 mg PO QAM ANDRE Stop: 09/03/23 08:59 Last Admin: 08/06/23 08:45 Dose: 75 mg Mental Health & Subst Abuse Tx Psychiatrist Name of Psychiatrist: JOSHUA Psychiatrist's Date Of Appointment With Psychiatric Provider: 08/20/23 Time of Appointment with Psychiatrist: 11:15 am Psychiatric Appointment Comment: post hospital visit Therapist Name of Therapist: willing for referral Ammonia Print Operator Name of Ammonia Print Operator: [facility] Phone Number for Ammonia Print Operator: Case Management Appointment Comment: Francesca will meet with you at your home. Post Discharge Appointments Primary Care Physician Name Of Family Doctor/PCP: Dr. Maki Date of Future Appointment with PCP: . Time of Appointment with PCP: . Provider Appointment Comment: . Contact Information Discharge Discharge Address: [address], [facility] [address]
--- NOTE | 2023-08-07 09:31 | Psychiatric Progress Note ---
Date of Service August 07, 2023 Impression / Recommendations Impression 53 yo woman with a history of anorexia, psychogenic polydipsia and depression vs BPAD admitted for increased restriction, weight loss, depression and excessive fluid intake. Diagnostically consistent with anorexia and bipolar affective disorder with current depressive episode. A: Mood improving, less depression and still constricted affect but better able to communicate and no evidence of paranoia or psychosis today. Will continue to taper lorazepam to discontinuation, starting with adjusting daytime lorazepam and then reducing HS dose. She would like to restart buspar for anxiety as this was well tolerated and helpful in the past. Discussed risks, benefits and alternatives and reviewed side effects. Reviewed that lower extremity edema is common after period of severe restriction and should resolve with time, will continue to monitor and can consider addition of spironolactone if persists/worsens or becomes distressing enough to impact her po intake. MNPR due to recent psychosis and polydipsia. Overall, I spent a total of 45 minutes on this case including meeting with the patient, reviewing the chart, nursing report, multidisciplinary team meeting, orders, and documentation. (1) MDD (major depressive disorder), recurrent, severe, with psychosis: (2) Eating disorder: (3) Psychogenic polydipsia: (4) Anorexia nervosa: (5) Chronic hyponatremia: Plan 08/07/2023: Discontinue daytime scheduled lorazepam, switch to prn. Decrease lorazepam to 1mg HS. Start buspar 5mg BID. 08/06/2023: Decrease lorazepam at bedtime to 1.5 mg. Continue medications and treatment plan. 08/05/2023: Colace 200 mg twice daily. Tomorrow a.m. BMP/phosphorus/magnesium levels. Continue medications and treatment plan. Plan to decrease benzodiazepines prior to discharge. 08/04/2023: Start Colace 100 mg twice daily and MiraLAX as needed for constipation. Recheck sodium levels in 2 days. Continue other medications and treatment plan. 08/03/2023: Increase Effexor XR to 75 mg daily. Increase paliperidone to 3 mg at bedtime. Recheck sodium tomorrow. 08/02/2023: Increase lorazepam to 2 mg at bedtime. Recheck sodium and electrolytes in 2 to 3 days. Considering transfer for ECT. 08/01/2023: Check daily weights. Daily multivitamin, calcium and vitamin D supplement twice daily. Labs for CMP and ESR tomorrow morning. Continue Effexor. D/C olanzapine (pt refusing). Start paliperidone 1.5 mg at bedtime. 07/31/2023: Start Effexor XR 37.5 mg daily. Start lorazepam 0.5 mg twice daily and morning and afternoon and lorazepam 1 mg at bedtime. Continue olanzapine and BuSpar. Recheck sodium in 2 days. Continue fluid restriction. Patient MNPR given ongoing paranoia and concern for delusional thoughts. Continue other medications and treatment plan. 07/30/2023: The patient was admitted to the [facility] on q15 min checks (behavioral with suicide precautions) for safety. The patient will participate in group, recreational, and milieu therapies and will be offered additional individual and family sessions as clinically appropriate. -Reduce olanzapine to 1.25mg HS po -Start Buspar 3.75mg BID -Mood Disorder Questionnaire to better assess for possible history of BPAD -Fluid restriction of 1.5L per day -Sodium monitoring weekly or prn -Fasting lipid panel and glucose tomorrow AM with Na+ re-check given some difficulty enforcing fluid restrictions on inpatient psychiatric setting Inventory Assets Strengths: supportive relationships, willing to get treatment Needs: safety and stabilization, medication adjustment, additional coping skills, increased outpatient services Suicide Risk Level Suicide Risk Level: Moderate (q15 min suicide checks) (denies current SI but with recent severe depression and psychosis, mood starting to improve, feels safe on the unit and able to ask for support if needed) Risk Factors Assessment Male: No : Yes Do You Have Access To A Gun?: No Mental Health Diagnoses: Yes Previous Attempt: No Family History of Suicide: Yes Previous Psychiatric Hospitalization: No Hopelessness: No Protective Factors Assessment Supportive Family: Yes (brother) Interval History Identifying Information 53 yo woman with a history of anorexia, psychogenic polydipsia and depression vs BPAD admitted for increased restriction, weight loss, depression and excessive fluid intake. Chief Complaint "I'm ok but tired". Review of Systems Sleep Information Total Hours of Sleep: 7 Sleep Comments: HS Ativan Meal Information Percent Meal Consumed - Breakfast: 100 Percent Meal Consumed - Lunch: 100 Percent Meal Consumed - Dinner: 90 Subjective Subjective Patient was seen & assessed and interval progress reviewed with treatment team nursing and social work. Feels a lot more tired today compared with yesterday. Has more insight into role of her eating disorder noting that she sought help because "I was so hungry I couldn't starve myself any longer and I came to the hospital because I was worried I would binge and purge." She is pleased she is eating more and gained some weight and has not purged. She is bothered by some lower extremity edema. Reviewed no symptoms of DVT, bilateral swelling consistent with electrolyte shifts and kidney changes in context of refeeding. Electrolytes yesterday including Mag and Phos are stable. She's interested in restarting Buspar as she felt this was very helpful for anxiety and ruminative thoughts and prefers this to ativan which causes her fatigue. Physical Exam Psychiatric Orientation: alert and oriented x 3 Apperance: appropriately dressed and appropriately groomed Eye Contact: + fair eye contact Motor Behavior: no abnormal motor movements Speech: normal rate/rhythm/volume of speech Affect: + constricted affect Mood: + anxious mood Thought Process: goal directed thought process Thought Content: reality based without delusions Suicidal Thoughts: denies suicidal thoughts Homicidal Thoughts: denies homicidal thoughts Hallucinations: no auditory hallucinations and no visual hallucinations Insight: + fair insight Judgment: + limited judgement Vital Signs (Past 24 Hours) Last Vital Signs Temp 36.8 C 08/07/23 06:50 Pulse 79 08/07/23 06:50 Resp 16 08/07/23 06:50 BP 94/61 L 08/07/23 06:51 Pulse Ox 96 08/07/23 06:50 O2 Del Method Room Air 08/07/23 06:50 Results & Data ([facility]) Current Inpatient Medications Current Inpatient Medications: Current Inpatient Medications Acetaminophen (Acetaminophen 325 Mg Tab) 650 mg PO Q4H PRN PRN Reason: Headache or Minor Fever Stop: 08/28/23 16:14 Al Hydrox/Mg Hydrox/Simethicone (Aluminum/Magnesium Susp 30 Ml Udc) 30 ml PO Q4H PRN PRN Reason: GI Upset Stop: 08/28/23 16:14 Last Admin: 08/02/23 19:19 Dose: 30 ml Bismuth Subsalicylate (Bismuth Subsalicylate Liqd 236 Ml) 15 ml PO PRN PRN PRN Reason: Loose Stool Stop: 08/28/23 16:14 Calcium/Vitamin D (Calcium 600mg + Vit D 400 Iu Tab) 1 tab PO BID ANDRE Stop: 08/31/23 11:29 Last Admin: 08/07/23 08:32 Dose: 1 tab Docusate Sodium (Docusate Sodium 100 Mg Cap) 200 mg PO BID ANDRE Stop: 09/04/23 20:59 Last Admin: 08/07/23 08:32 Dose: 200 mg Hydroxyzine HCl (Hydroxyzine Hcl 25 Mg Tab) 50 mg PO HSZ PRN PRN Reason: Insomnia Stop: 08/28/23 16:14 Hydroxyzine HCl (Hydroxyzine Hcl 25 Mg Tab) 25 mg PO Q4H PRN PRN Reason: Anxiety Stop: 08/28/23 16:14 Last Admin: 08/06/23 17:50 Dose: 25 mg Lorazepam (Lorazepam 1 Mg Tab) 2 mg PO HS [facility] Stop: 09/01/23 21:59 Last Admin: 08/06/23 20:25 Dose: 2 mg Lorazepam (Lorazepam 0.5 Mg Tab) 0.5 mg PO BID@0800,1400 [facility] Stop: 09/03/23 13:59 Last Admin: 08/07/23 08:33 Dose: 0.5 mg Magnesium Hydroxide (Magnesium Hydroxide Susp 30 Ml Udc) 30 ml PO DAILY PRN PRN Reason: Constipation Stop: 08/28/23 16:14 Last Admin: 08/04/23 19:43 Dose: 30 ml Multivitamins/Folic Acid/Vitamin C (Multivitamin Chewable Tab) 1 tab PO QAM ANDRE Stop: 08/31/23 11:29 Last Admin: 08/07/23 08:32 Dose: 1 tab Paliperidone (Paliperidone 3 Mg Tabcr) 3 mg PO HS ANDRE Stop: 08/31/23 21:59 Last Admin: 08/06/23 20:23 Dose: 3 mg Polyethylene Glycol (Polyethylene (Miralax) 17 Gm Pack) 17 gm PO DAILY PRN PRN Reason: Constipation Stop: 09/03/23 13:08 Last Admin: 08/05/23 09:09 Dose: 17 gm Sodium Chloride (Sodium Chloride 0.65% Na Soln 45 Ml ([place])) 1 - 2 sprays NA PRN PRN PRN Reason: Nasal Dryness/Congestion Stop: 08/28/23 16:14 Venlafaxine HCl (Venlafaxine Hcl Xr 75 Mg Capxr) 75 mg PO QAM ANDER Stop: 09/03/23 08:59 Last Admin: 08/07/23 08:32 Dose: 75 mg Mental Health & Subst Abuse Tx Psychiatrist Name of Psychiatrist: JOSHUA Psychiatrist's Date Of Appointment With Psychiatric Provider: 08/20/23 Time of Appointment with Psychiatrist: 11:15 am Psychiatric Appointment Comment: post hospital visit Therapist Name of Therapist: willing for referral Outside Operator Name of Outside Operator: [facility]ca Phone Number for Outside Operator: Case Management Appointment Comment: Francesca will meet with you at your home. Post Discharge Appointments Primary Care Physician Name Of Family Doctor/PCP: Dr. Maki Date of Future Appointment with PCP: . Time of Appointment with PCP: . Provider Appointment Comment: . Contact Information [facility] [address] [facility] [facility] [address]
[2023-08-07] MEDS ORDERED: LORazepam 0.5 MG TAB PO PRN (11:07)
[2023-08-07] MEDS: LORazepam 0.5 MG TAB PO PRN (15:39)
[2023-08-07] MEDS: LORazepam 1 MG TAB PO SCH (21:03)
[2023-08-07] MEDS: busPIRone 5 MG TAB PO SCH (21:04)
[2023-08-08] MEDS: PALIPERIDONE 1.5 MG TABCR PO SCH (13:44)
--- NOTE | 2023-08-08 15:31 | Psychiatric Progress Note ---
Date of Service August 08, 2023 Impression / Recommendations Impression 53 yo woman with a history of anorexia, psychogenic polydipsia and depression vs BPAD admitted for increased restriction, weight loss, depression and excessive fluid intake. Diagnostically consistent with anorexia and bipolar affective disorder with current depressive episode. A: Ongoing symptoms of her eating disorder including significant anxiety related to meals, perseveration about food choices, periods of increased hungry/binging and ruminative anxiety about weight gain and lower extremity swelling. Tolerating medication adjustments though with some anticipated increase in anxiety with taper of benzodiazepines. No current signs of polydipsia. Consents to further titration of Invega to target ongoing ruminative anxiety and mood stabilization. MNPR due to recent psychosis and polydipsia. Overall, I spent a total of 40 minutes on this case including meeting with the patient, reviewing the chart, nursing report, multidisciplinary team meeting, orders, and documentation. (1) MDD (major depressive disorder), recurrent, severe, with psychosis: (2) Anorexia nervosa: (3) Eating disorder: (4) Psychogenic polydipsia: (5) Chronic hyponatremia: Plan 08/08/2023: Increase Invega to 1.5mg qbreakfast, 1.5mg qlunch and 3mg qdinner. 08/07/2023: Discontinue daytime scheduled lorazepam, switch to prn. Decrease lorazepam to 1mg HS. Start buspar 5mg BID. 08/06/2023: Decrease lorazepam at bedtime to 1.5 mg. Continue medications and treatment plan. 08/05/2023: Colace 200 mg twice daily. Tomorrow a.m. BMP/phosphorus/magnesium levels. Continue medications and treatment plan. Plan to decrease benzodiazepines prior to discharge. 08/04/2023: Start Colace 100 mg twice daily and MiraLAX as needed for constipation. Recheck sodium levels in 2 days. Continue other medications and treatment plan. 08/03/2023: Increase Effexor XR to 75 mg daily. Increase paliperidone to 3 mg at bedtime. Recheck sodium tomorrow. 08/02/2023: Increase lorazepam to 2 mg at bedtime. Recheck sodium and electrolytes in 2 to 3 days. Considering transfer for ECT. 08/01/2023: Check daily weights. Daily multivitamin, calcium and vitamin D supplement twice daily. Labs for CMP and ESR tomorrow morning. Continue Effexor. D/C olanzapine (pt refusing). Start paliperidone 1.5 mg at bedtime. 07/31/2023: Start Effexor XR 37.5 mg daily. Start lorazepam 0.5 mg twice daily and morning and afternoon and lorazepam 1 mg at bedtime. Continue olanzapine and BuSpar. Recheck sodium in 2 days. Continue fluid restriction. Patient MNPR given ongoing paranoia and concern for delusional thoughts. Continue other medications and treatment plan. 07/30/2023: The patient was admitted to the [facility] (health system mental health unit) on q15 min checks (behavioral with suicide precautions) for safety. The patient will participate in group, recreational, and milieu therapies and will be offered additional individual and family sessions as clinically appropriate. -Reduce olanzapine to 1.25mg HS po -Start Buspar 3.75mg BID -Mood Disorder Questionnaire to better assess for possible history of BPAD -Fluid restriction of 1.5L per day -Sodium monitoring weekly or prn -Fasting lipid panel and glucose tomorrow AM with Na+ re-check given some difficulty enforcing fluid restrictions on inpatient psychiatric setting Inventory Assets Strengths: supportive relationships, willing to get treatment Needs: safety and stabilization, medication adjustment, additional coping skills, increased outpatient services Suicide Risk Level Suicide Risk Level: Moderate (q15 min suicide checks) (denies current SI but with recent severe depression and psychosis, mood starting to improve, feels safe on the unit and able to ask for support if needed) Risk Factors Assessment Male: No : Yes Do You Have Access To A Gun?: No Mental Health Diagnoses: Yes Previous Attempt: No Family History of Suicide: Yes Previous Psychiatric Hospitalization: No Hopelessness: No Protective Factors Assessment Supportive Family: Yes (brother) Interval History Identifying Information 53 yo woman with a history of anorexia, psychogenic polydipsia and depression vs BPAD admitted for increased restriction, weight loss, depression and excessive fluid intake. Chief Complaint "Alright but I definitely noticed a change with the meds". Review of Systems Sleep Information Total Hours of Sleep: 7.75 Sleep Comments: HS Ativan Meal Information Percent Meal Consumed - Breakfast: 100 Percent Meal Consumed - Lunch: 100 Percent Meal Consumed - Dinner: 100 Subjective Subjective Patient was seen & assessed and interval progress reviewed with treatment team nursing and social work. Attending groups. Remains very preoccupied and perseverative about meal choices and items on her meal tray, even to point of calling down to the hospital kitchen herself yesterday to request additional items she had not ordered. Remains very ruminative especially about weight gain and lower extremity edema despite frequent reassurance and discussions with myself and RNs. She feels more anxious with reducing benzodiazepine doses. Reviewed importance of finding medication regimen that will be safe and effective long-term which she is in agreement with. She consents to increasing Invega and wonders about timing around meals as this is when she feels most anxious. She doesn't like Vistaril as caused some blurry vision so prefers to use ativan for severe anxiety during the day. Physical Exam Psychiatric Orientation: alert and oriented x 3 Apperance: appropriately dressed and appropriately groomed Eye Contact: + fair eye contact Motor Behavior: no abnormal motor movements Speech: normal rate/rhythm/volume of speech Affect: + constricted affect Mood: + anxious mood Thought Process: + perseveration Thought Content: + preoccupation (about food, weight gain) and reality based without delusions Suicidal Thoughts: denies suicidal thoughts Homicidal Thoughts: denies homicidal thoughts Hallucinations: no auditory hallucinations and no visual hallucinations Insight: + fair insight Judgment: + limited judgement Vital Signs (Past 24 Hours) Last Vital Signs Temp 36.3 C L 08/08/23 06:31 Pulse 94 H 08/08/23 06:32 Resp 16 08/08/23 06:31 BP 105/81 08/08/23 06:32 Pulse Ox 97 08/08/23 06:31 O2 Del Method Room Air 08/08/23 06:31 Results & Data ([facility]) Current Inpatient Medications Current Inpatient Medications: Current Inpatient Medications Acetaminophen (Acetaminophen 325 Mg Tab) 650 mg PO Q4H PRN PRN Reason: Headache or Minor Fever Stop: 08/28/23 16:14 Al Hydrox/Mg Hydrox/Simethicone (Aluminum/Magnesium Susp 30 Ml Udc) 30 ml PO Q4H PRN PRN Reason: GI Upset Stop: 08/28/23 16:14 Last Admin: 08/02/23 19:19 Dose: 30 ml Bismuth Subsalicylate (Bismuth Subsalicylate Liqd 236 Ml) 15 ml PO PRN PRN PRN Reason: Loose Stool Stop: 08/28/23 16:14 Buspirone HCl (Buspirone 5 Mg Tab) 5 mg PO BID ANDRE Stop: 09/06/23 20:59 Last Admin: 08/08/23 08:24 Dose: 5 mg Calcium/Vitamin D (Calcium 600mg + Vit D 400 Iu Tab) 1 tab PO BID ANDRE Stop: 08/31/23 11:29 Last Admin: 08/08/23 08:24 Dose: 1 tab Docusate Sodium (Docusate Sodium 100 Mg Cap) 200 mg PO BID ANDRE Stop: 09/04/23 20:59 Last Admin: 08/08/23 08:24 Dose: 200 mg Hydroxyzine HCl (Hydroxyzine Hcl 25 Mg Tab) 50 mg PO HSZ PRN PRN Reason: Insomnia Stop: 08/28/23 16:14 Hydroxyzine HCl (Hydroxyzine Hcl 25 Mg Tab) 25 mg PO Q4H PRN PRN Reason: Anxiety Stop: 08/28/23 16:14 Last Admin: 08/07/23 14:23 Dose: 25 mg Lorazepam (Lorazepam 1 Mg Tab) 1 mg PO HS ANDRE Stop: 09/06/23 21:59 Last Admin: 08/07/23 21:03 Dose: 1 mg Lorazepam (Lorazepam 0.5 Mg Tab) 0.25 mg PO BID PRN PRN Reason: Anxiety Stop: 09/06/23 15:29 Last Admin: 08/07/23 15:39 Dose: 0.25 mg Magnesium Hydroxide (Magnesium Hydroxide Susp 30 Ml Udc) 30 ml PO DAILY PRN PRN Reason: Constipation Stop: 08/28/23 16:14 Last Admin: 08/04/23 19:43 Dose: 30 ml Multivitamins/Folic Acid/Vitamin C (Multivitamin Chewable Tab) 1 tab PO QAM ANDRE Stop: 08/31/23 11:29 Last Admin: 08/08/23 08:25 Dose: 1 tab Paliperidone (Paliperidone 3 Mg Tabcr) 3 mg PO DAILYBD ANDRE Stop: 09/07/23 17:14 Paliperidone (Paliperidone 1.5 Mg Tabcr) 1.5 mg PO BID@0800,1100 [facility] Stop: 09/08/23 07:59 Polyethylene Glycol (Polyethylene (Miralax) 17 Gm Pack) 17 gm PO DAILY PRN PRN Reason: Constipation Stop: 09/03/23 13:08 Last Admin: 08/05/23 09:09 Dose: 17 gm Sodium Chloride (Sodium Chloride 0.65% Na Soln 45 Ml (Ceex Haci)) 1 - 2 sprays NA PRN PRN PRN Reason: Nasal Dryness/Congestion Stop: 08/28/23 16:14 Venlafaxine HCl (Venlafaxine Hcl Xr 75 Mg Capxr) 75 mg PO QAM ANDRE Stop: 09/03/23 08:59 Last Admin: 08/08/23 08:25 Dose: 75 mg Mental Health & Subst Abuse Tx Psychiatrist Name of Psychiatrist: JOSHUA Psychiatrist's Date Of Appointment With Psychiatric Provider: 08/20/23 Time of Appointment with Psychiatrist: 11:15 am Psychiatric Appointment Comment: post hospital visit Therapist Name of Therapist: willing for referral Manager Mission Name of Manager Mission: [facility] Phone Number for Manager Mission: Case Management Appointment Comment: Francesca will meet with you at your home. Post Discharge Appointments Primary Care Physician Name Of Family Doctor/PCP: Dr. Maki Date of Future Appointment with PCP: . Time of Appointment with PCP: . Provider Appointment Comment: . Contact Information [facility] [address] [facility] [address]
[2023-08-08] MEDS: PALIPERIDONE 3 MG TABCR PO SCH (17:06)
[2023-08-09] MEDS: PALIPERIDONE 1.5 MG TABCR PO SCH (08:32)
--- NOTE | 2023-08-09 09:13 | Psychiatric Progress Note ---
Date of Service August 09, 2023 Impression / Recommendations Impression 53 yo woman with a history of anorexia, psychogenic polydipsia and depression vs BPAD admitted for increased restriction, weight loss, depression and excessive fluid intake. Diagnostically consistent with anorexia and bipolar affective disorder with current depressive episode vs MDD with psychotic features. A: Ongoing severe ruminations, anxiety, perseveration and vocalizing paranoid delusions last evening. Reports some nausea today, but no evidence of any purging. She requests discontinuation of Buspar so will do this. She consents to continuing with Invega as I feel her reported possible side effects are due to anxiety and recent severe restriction. She agrees to labwork tomorrow to recheck electrolytes. MNPR due to recent psychosis and polydipsia. Overall, I spent a total of 45 minutes on this case including meeting with the patient, reviewing the chart, nursing report, multidisciplinary team meeting, orders, and documentation. (1) MDD (major depressive disorder), recurrent, severe, with psychosis: (2) Anorexia nervosa: (3) Eating disorder: (4) Psychogenic polydipsia: (5) Chronic hyponatremia: Plan 08/09/2023: Discontinue Buspar. Recheck BMP, phosphorus/magnesium. Will attempt to reduce HS lorazepam further tomorrow. 08/08/2023: Increase Invega to 1.5mg qbreakfast, 1.5mg qlunch and 3mg qdinner. 08/07/2023: Discontinue daytime scheduled lorazepam, switch to prn. Decrease lorazepam to 1mg HS. Start buspar 5mg BID. 08/06/2023: Decrease lorazepam at bedtime to 1.5 mg. Continue medications and treatment plan. 08/05/2023: Colace 200 mg twice daily. Tomorrow a.m. BMP/phosphorus/magnesium levels. Continue medications and treatment plan. Plan to decrease benzodiazepines prior to discharge. 08/04/2023: Start Colace 100 mg twice daily and MiraLAX as needed for constipation. Recheck sodium levels in 2 days. Continue other medications and treatment plan. 08/03/2023: Increase Effexor XR to 75 mg daily. Increase paliperidone to 3 mg at bedtime. Recheck sodium tomorrow. 08/02/2023: Increase lorazepam to 2 mg at bedtime. Recheck sodium and electrolytes in 2 to 3 days. Considering transfer for ECT. 08/01/2023: Check daily weights. Daily multivitamin, calcium and vitamin D supplement twice daily. Labs for CMP and ESR tomorrow morning. Continue Effexor. D/C olanzapine (pt refusing). Start paliperidone 1.5 mg at bedtime. 07/31/2023: Start Effexor XR 37.5 mg daily. Start lorazepam 0.5 mg twice daily and morning and afternoon and lorazepam 1 mg at bedtime. Continue olanzapine and BuSpar. Recheck sodium in 2 days. Continue fluid restriction. Patient MNPR given ongoing paranoia and concern for delusional thoughts. Continue other medications and treatment plan. 07/30/2023: The patient was admitted to the [facility] ([facility] mental health unit) on q15 min checks (behavioral with suicide precautions) for safety. The patient will participate in group, recreational, and milieu therapies and will be of fered additional individual and family sessions as clinically appropriate. -Reduce olanzapine to 1.25mg HS po -Start Buspar 3.75mg BID -Mood Disorder Questionnaire to better assess for possible history of BPAD -Fluid restriction of 1.5L per day -Sodium monitoring weekly or prn -Fasting lipid panel and glucose tomorrow AM with Na+ re-check given some difficulty enforcing fluid restrictions on inpatient psychiatric setting Inventory Assets Strengths: supportive relationships, willing to get treatment Needs: safety and stabilization, medication adjustment, additional coping skills, increased outpatient services Suicide Risk Level Suicide Risk Level: Moderate (q15 min suicide checks) (denies current SI but with recent severe depression and psychosis, mood starting to improve, feels safe on the unit and able to ask for support if needed) Risk Factors Assessment Male: No : Yes Do You Have Access To A Gun?: No Mental Health Diagnoses: Yes Previous Attempt: No Family History of Suicide: Yes Previous Psychiatric Hospitalization: No Hopelessness: No Protective Factors Assessment Supportive Family: Yes (brother) Interval History Identifying Information 53 yo woman with a history of anorexia, psychogenic polydipsia and depression vs BPAD admitted for increased restriction, weight loss, depression and excessive fluid intake. Chief Complaint "I wish I was successful like my brother". Review of Systems Sleep Information Total Hours of Sleep: 7.15 Sleep Comments: HS Ativan and Buspar Meal Information Percent Meal Consumed - Breakfast: 100 Percent Meal Consumed - Lunch: 100 Percent Meal Consumed - Dinner: 90 Subjective Subjective Patient was seen & assessed and interval progress reviewed with treatment team nursing and social work. Last evening said she wasn't eating prior to admission because her neighbors were poisoning her and coming into her home. Eliecer reports her mood is "not feeling good" with ongoing significant anxiety, frequent ruminations about weight gain and food intake, nausea, and questioning if hospitalization was a good choice and if her medications are right. Wonders if she should go back on haldol. Reviewed that she had dry mouth side effects on this which she then recalls. States she worries Invega is causing weight gain or causing nausea. Reviewed that it can cause weight gain but typically not to the same degree as some of the other mood stabilizer/antipsychotic medications. She consents to remaining on Invega but asks to discontinue Buspar. Processed how her anxiety and distress related to her anorexia seems to cause her to oscillate between decisions and get overwhelmed easily. She reports her lower extremity swelling did improve this morning, got a bit worse after she walked laps this mo rning. Reports feeling guilty that she can't help with planning for her mother's service and that she isn't working. However, she then acknowledges that she couldn't help with much for the even if she wasn't in the hospital and that she wasn't able to work before coming to the hospital but of weakness associated with her severe restriction. Physical Exam Psychiatric Orientation: alert and oriented x 3 Apperance: appropriately dressed and appropriately groomed Eye Contact: + fair eye contact Motor Behavior: no abnormal motor movements Speech: normal rate/rhythm/volume of speech Affect: + constricted affect Mood: + anxious mood Thought Process: + perseveration Thought Content: + preoccupation (about food, weight gain) and + paranoid Suicidal Thoughts: denies suicidal thoughts Homicidal Thoughts: denies homicidal thoughts Hallucinations: no auditory hallucinations and no visual hallucinations Insight: + limited insight Judgment: + limited judgement Vital Signs (Past 24 Hours) Last Vital Signs Temp 36.6 C 08/09/23 06:37 Pulse 94 H 08/09/23 06:38 Resp 16 08/09/23 06:37 BP 104/70 08/09/23 06:38 Pulse Ox 97 08/08/23 06:31 O2 Del Method Room Air 08/08/23 06:31 Results & Data ([facility]) Current Inpatient Medications Current Inpatient Medications: Current Inpatient Medications Acetaminophen (Acetaminophen 325 Mg Tab) 650 mg PO Q4H PRN PRN Reason: Headache or Minor Fever Stop: 08/28/23 16:14 Al Hydrox/Mg Hydrox/Simethicone (Aluminum/Magnesium Susp 30 Ml Udc) 30 ml PO Q4H PRN PRN Reason: GI Upset Stop: 08/28/23 16:14 Last Admin: 08/02/23 19:19 Dose: 30 ml Bismuth Subsalicylate (Bismuth Subsalicylate Liqd 236 Ml) 15 ml PO PRN PRN PRN Reason: Loose Stool Stop: 08/28/23 16:14 Buspirone HCl (Buspirone 5 Mg Tab) 5 mg PO BID ANDRE Stop: 09/06/23 20:59 Last Admin: 08/09/23 08:31 Dose: 5 mg Calcium/Vitamin D (Calcium 600mg + Vit D 400 Iu Tab) 1 tab PO BID ANDRE Stop: 08/31/23 11:29 Last Admin: 08/09/23 08:31 Dose: 1 tab Docusate Sodium (Docusate Sodium 100 Mg Cap) 200 mg PO BID ANDRE Stop: 09/04/23 20:59 Last Admin: 08/09/23 08:32 Dose: 200 mg Hydroxyzine HCl (Hydroxyzine Hcl 25 Mg Tab) 50 mg PO HSZ PRN PRN Reason: Insomnia Stop: 08/28/23 16:14 Hydroxyzine HCl (Hydroxyzine Hcl 25 Mg Tab) 25 mg PO Q4H PRN PRN Reason: Anxiety Stop: 08/28/23 16:14 Last Admin: 08/07/23 14:23 Dose: 25 mg Lorazepam (Lorazepam 1 Mg Tab) 1 mg PO HS ANDRE Stop: 09/06/23 21:59 Last Admin: 08/08/23 20:52 Dose: 1 mg Lorazepam (Lorazepam 0.5 Mg Tab) 0.25 mg PO BID PRN PRN Reason: Anxiety Stop: 09/06/23 15:29 Last Admin: 08/08/23 15:42 Dose: 0.25 mg Magnesium Hydroxide (Magnesium Hydroxide Susp 30 Ml Udc) 30 ml PO DAILY PRN PRN Reason: Constipation Stop: 08/28/23 16:14 Last Admin: 08/04/23 19:43 Dose: 30 ml Multivitamins/Folic Acid/Vitamin C (Multivitamin Chewable Tab) 1 tab PO QAM ANDRE Stop: 08/31/23 11:29 Last Admin: 08/09/23 08:31 Dose: 1 tab Paliperidone (Paliperidone 3 Mg Tabcr) 3 mg PO DAILYBD ANDRE Stop: 09/07/23 17:14 Last Admin: 08/08/23 17:06 Dose: 3 mg Paliperidone (Paliperidone 1.5 Mg Tabcr) 1.5 mg PO BID@0800,1100 ANDRE Stop: 09/08/23 07:59 Last Admin: 08/09/23 08:32 Dose: 1.5 mg Polyethylene Glycol (Polyethylene (Miralax) 17 Gm Pack) 17 gm PO DAILY PRN PRN Reason: Constipation Stop: 09/03/23 13:08 Last Admin: 08/05/23 09:09 Dose: 17 gm Sodium Chloride (Sodium Chloride 0.65% Na Soln 45 Ml ([place])) 1 - 2 sprays NA PRN PRN PRN Reason: Nasal Dryness/Congestion Stop: 08/28/23 16:14 Venlafaxine HCl (Venlafaxine Hcl Xr 75 Mg Capxr) 75 mg PO QAM ANDRE Stop: 09/03/23 08:59 Last Admin: 08/09/23 08:31 Dose: 75 mg Mental Health & Subst Abuse Tx Psychiatrist Name of Psychiatrist: JOSHUA Psychiatrist's Date Of Appointment With Psychiatric Provider: 08/20/23 Time of Appointment with Psychiatrist: 11:15 am Psychiatric Appointment Comment: post hospital visit Therapist Name of Therapist: willing for referral Rehab Therapist Name of Rehab Therapist: [facility] Phone Number for Rehab Therapist: Case Management Appointment Comment: Francesca will meet with you at your home. Post Discharge Appointments Primary Care Physician Name Of Family Doctor/PCP: Dr. Maki Date of Future Appointment with PCP: . Time of Appointment with PCP: . Provider Appointment Comment: . Contact Information [place] [address]
[2023-08-10 08:12] LABS: BUN Creatinine Ratio 38.3 (10-20); Calcium 8.4 mg/dl (8.6-10.3); Creatinine Clr Calc Pharmacy 96.4 ml/min; Est GFR (African American) 120.6 ml/min; Est GFR (Non-African American) 104.1 ml/min; Magnesium 1.9 mg/dl (1.7-2.4); Phosphorus 4.2 mg/dl (2.5-4.9); Potassium 3.8 mmol/L (3.5-5.1)
--- NOTE | 2023-08-10 08:49 | Psychiatric Progress Note ---
Date of Service August 10, 2023 Impression / Recommendations Impression 53 yo woman with a history of anorexia, psychogenic polydipsia and depression vs BPAD admitted for increased restriction, weight loss, depression and excessive fluid intake. Diagnostically consistent with anorexia and bipolar affective disorder with current depressive episode vs MDD with psychotic features. A: Anxiety lessening slightly, still with some paranoia but able to reality-test a bit more. Labwork reassuring, will discontinue fluid restrictions. Discussed aftercare options, she is not interested in residential eating disorder programs at this time. MNPR due to paranoia and polydipsia. Overall, I spent a total of 40 minutes on this case including meeting with the patient, reviewing the chart, nursing report, multidisciplinary team meeting, orders, and documentation. (1) MDD (major depressive disorder), recurrent, severe, with psychosis: (2) Anorexia nervosa: (3) Eating disorder: (4) Psychogenic polydipsia: (5) Chronic hyponatremia: Plan 08/10/2023: Continue current medications and tx plan. D/c fluid restrictions. 08/09/2023: Discontinue Buspar. Recheck BMP, phosphorus/magnesium. Will attempt to reduce HS lorazepam further tomorrow. 08/08/2023: Increase Invega to 1.5mg qbreakfast, 1.5mg qlunch and 3mg qdinner. 08/07/2023: Discontinue daytime scheduled lorazepam, switch to prn. Decrease lorazepam to 1mg HS. Start buspar 5mg BID. 08/06/2023: Decrease lorazepam at bedtime to 1.5 mg. Continue medications and treatment plan. 08/05/2023: Colace 200 mg twice daily. Tomorrow a.m. BMP/phosphorus/magnesium levels. Continue medications and treatment plan. Plan to decrease benzodiazepines prior to discharge. 08/04/2023: Start Colace 100 mg twice daily and MiraLAX as needed for constipation. Recheck sodium levels in 2 days. Continue other medications and treatment plan. 08/03/2023: Increase Effexor XR to 75 mg daily. Increase paliperidone to 3 mg at bedtime. Recheck sodium tomorrow. 08/02/2023: Increase lorazepam to 2 mg at bedtime. Recheck sodium and electrolytes in 2 to 3 days. Considering transfer for ECT. 08/01/2023: Check daily weights. Daily multivitamin, calcium and vitamin D supplement twice daily. Labs for CMP and ESR tomorrow morning. Continue Effexor. D/C olanzapine (pt refusing). Start paliperidone 1.5 mg at bedtime. 07/31/2023: Start Effexor XR 37.5 mg daily. Start lorazepam 0.5 mg twice daily and morning and afternoon and lorazepam 1 mg at bedtime. Continue olanzapine and BuSpar. Recheck sodium in 2 days. Continue fluid restriction. Patient MNPR given ongoing paranoia and concern for delusional thoughts. Continue other medications and treatment plan. 07/30/2023: The patient was admitted to the [facility] ([facility] mental health unit) on q15 min checks (behavioral with suicide precautions) for safety. The patient will participate in group, recreational, and milieu therapies and will be offered additional individual and family sessions as clinically appropriate. -Reduce olanzapine to 1.25mg HS po -Start Buspar 3.75mg BID -Mood Disorder Questionnaire to better assess for possible history of BPAD -Fluid restriction of 1.5L per day -Sodium monitoring weekly or prn -Fasting lipid panel and glucose tomorrow AM with Na+ re-check given some difficulty enforcing fluid restrictions on inpatient psychiatric setting Inventory Assets Strengths: supportive relationships, willing to get treatment Needs: safety and stabilization, medication adjustment, additional coping skills, increased outpatient services Suicide Risk Level Suicide Risk Level: Moderate (q15 min suicide checks) (denies current SI but with recent severe depression and psychosis, mood improving, feels safe on the unit and able to ask for support if needed) Risk Factors Assessment Male: No : Yes Do You Have Access To A Gun?: No Mental Health Diagnoses: Yes Previous Attempt: No Family History of Suicide: Yes Previous Psychiatric Hospitalization: No Hopelessness: No Protective Factors Assessment Supportive Family: Yes (brother) Interval History Identifying Information 53 yo woman with a history of anorexia, psychogenic polydipsia and depression vs BPAD admitted for increased restriction, weight loss, depression and excessive fluid intake. Chief Complaint "Do you think that was a good decision, for me not to move in there?". Review of Systems Sleep Information Total Hours of Sleep: 8 Sleep Comments: HS Ativan and Buspar Meal Information Percent Meal Consumed - Breakfast: 100 Percent Meal Consumed - Lunch: 100 Percent Meal Consumed - Dinner: 100 Subjective Subjective Patient was seen & assessed and interval progress reviewed with treatment team nursing and social work. Continues to ruminate on past decisions and whether or not she made the "right" choices. Wants reassurance regarding this. She reports improvement in her leg swelling, stating that it is less swollen overall. She continues to struggle with ruminations, particularly focusing on past decisions and regrets. She expresses a desire to collaborate with her brother in the future and acknowledges his recent supportive behavior. She has been experiencing paranoia intermittently, suspecting that her neighbor has been drugging her drinks and taking her stuff possibly for the purpose of human trafficking. Also notes she saw people at work "messing" with her drinks. She acknowledges this could be her mind playing tricks on her but isn't sure. She recalls while not eating and during this time of concerns about the neighbor giving her meth that she was feeling wired and hyper, which she attributes to the suspected drugging. We discuss and she offers that this could have been from not eating and drinking a lot of caffeine and I raise concern for possible hypomania or marisela or as a result of her severe restriction. She agrees this could be possible. Rachel also acknowledges ongoing difficulty with eating and nutrition, recognizing that her eating disorder has impacted her decision-making abilities in the past. She reports experiencing nausea but is continuing to eat consistently and thinks this will get better over time. Physical Exam Psychiatric Orientation: alert and oriented x 3 Apperance: appropriately dressed and appropriately groomed Eye Contact: + fair eye contact Motor Behavior: no abnormal motor movements Speech: normal rate/rhythm/volume of speech Affect: + constricted affect Mood: + anxious mood Thought Process: + circumstantial thought process Thought Content: + paranoid Suicidal Thoughts: denies suicidal thoughts Homicidal Thoughts: denies homicidal thoughts Hallucinations: no auditory hallucinations and no visual hallucinations Insight: + limited insight Judgment: + limited judgement Vital Signs (Past 24 Hours) Last Vital Signs Temp 36.9 C 08/10/23 06:36 Pulse 93 H 08/10/23 06:37 Resp 16 08/10/23 06:36 BP 110/70 08/10/23 06:37 Pulse Ox 97 08/08/23 06:31 O2 Del Method Room Air 08/08/23 06:31 Results & Data ([facility] [place]) Laboratory Results Laboratory Results - last 24 hr 08/10/23 07:15 Sodium 138 Potassium 3.8 Chloride 104 Carbon Dioxide 29 Anion Gap 5 BUN 23 Creatinine 0.60 Est Cr Clr Drug Dosing 96.4 Est GFR ( Amer) 120.6 Est GFR (Non-Af Amer) 104.1 BUN/Creatinine Ratio 38.3 H Glucose 94 Calcium 8.4 L Phosphorus 4.2 Magnesium 1.9 Current Inpatient Medications Current Inpatient Medications: Current Inpatient Medications Acetaminophen (Acetaminophen 325 Mg Tab) 650 mg PO Q4H PRN PRN Reason: Headache or Minor Fever Stop: 08/28/23 16:14 Al Hydrox/Mg Hydrox/Simethicone (Aluminum/Magnesium Susp 30 Ml Udc) 30 ml PO Q4H PRN PRN Reason: GI Upset Stop: 08/28/23 16:14 Last Admin: 08/02/23 19:19 Dose: 30 ml Bismuth Subsalicylate (Bismuth Subsalicylate Liqd 236 Ml) 15 ml PO PRN PRN PRN Reason: Loose Stool Stop: 08/28/23 16:14 Calcium/Vitamin D (Calcium 600mg + Vit D 400 Iu Tab) 1 tab PO BID ANDRE Stop: 08/31/23 11:29 Last Admin: 08/09/23 21:16 Dose: 1 tab Docusate Sodium (Docusate Sodium 100 Mg Cap) 200 mg PO BID ANDRE Stop: 09/04/23 20:59 Last Admin: 08/09/23 21:17 Dose: 200 mg Hydroxyzine HCl (Hydroxyzine Hcl 25 Mg Tab) 50 mg PO HSZ PRN PRN Reason: Insomnia Stop: 08/28/23 16:14 Hydroxyzine HCl (Hydroxyzine Hcl 25 Mg Tab) 25 mg PO Q4H PRN PRN Reason: Anxiety Stop: 08/28/23 16:14 Last Admin: 08/07/23 14:23 Dose: 25 mg Lorazepam (Lorazepam 1 Mg Tab) 1 mg PO HS ANDRE Stop: 09/06/23 21:59 Last Admin: 08/09/23 21:18 Dose: 1 mg Lorazepam (Lorazepam 0.5 Mg Tab) 0.25 mg PO BID PRN PRN Reason: Anxiety Stop: 09/06/23 15:29 Last Admin: 08/09/23 12:45 Dose: 0.25 mg Magnesium Hydroxide (Magnesium Hydroxide Susp 30 Ml Udc) 30 ml PO DAILY PRN PRN Reason: Constipation Stop: 08/28/23 16:14 Last Admin: 08/04/23 19:43 Dose: 30 ml Multivitamins/Folic Acid/Vitamin C (Multivitamin Chewable Tab) 1 tab PO QAM ANDRE Stop: 08/31/23 11:29 Last Admin: 08/09/23 08:31 Dose: 1 tab Paliperidone (Paliperidone 3 Mg Tabcr) 3 mg PO DAILYBD ANDRE Stop: 09/07/23 17:14 Last Admin: 08/09/23 17:18 Dose: 3 mg Paliperidone (Paliperidone 1.5 Mg Tabcr) 1.5 mg PO BID@0800,1100 ANDRE Stop: 09/08/23 07:59 Last Admin: 08/09/23 11:01 Dose: 1.5 mg Polyethylene Glycol (Polyethylene (Miralax) 17 Gm Pack) 17 gm PO DAILY PRN PRN Reason: Constipation Stop: 09/03/23 13:08 Last Admin: 08/05/23 09:09 Dose: 17 gm Sodium Chloride (Sodium Chloride 0.65% Na Soln 45 Ml ([place])) 1 - 2 sprays NA PRN PRN PRN Reason: Nasal Dryness/Congestion Stop: 08/28/23 16:14 Venlafaxine HCl (Venlafaxine Hcl Xr 75 Mg Capxr) 75 mg PO QAM ANDRE Stop: 09/03/23 08:59 Last Admin: 08/09/23 08:31 Dose: 75 mg Mental Health & Subst Abuse Tx Psychiatrist Name of Psychiatrist: JOSHUA Psychiatrist's Date Of Appointment With Psychiatric Provider: 08/20/23 Time of Appointment with Psychiatrist: 11:15 am Psychiatric Appointment Comment: post hospital visit Therapist Name of Therapist: willing for referral Heel Cover Softener Name of Heel Cover Softener: [facility] Phone Number for Heel Cover Softener: Date of Appointment with Heel Cover Softener: 08/17/23 Time of Appointment with Heel Cover Softener: 1:00 PM Case Management Appointment Comment: Xiao will meet with you at your home. Post Discharge Appointments Primary Care Physician Name Of Family Doctor/PCP: Dr. Maki Date of Future Appointment with PCP: . Time of Appointment with PCP: . Provider Appointment Comment: . Contact Information Discharge Discharge Address: [address], [facility] [address]
[2023-08-10] MEDS: ACETAMINOPHEN 325 MG TAB PO PRN (16:37)
--- NOTE | 2023-08-11 09:10 | Psychiatric Progress Note ---
Date of Service August 11, 2023 Impression / Recommendations Impression 53 yo woman with a history of anorexia, psychogenic polydipsia and depression vs BPAD admitted for increased restriction, weight loss, depression and excessive fluid intake. Diagnostically consistent with anorexia and bipolar affective disorder with current depressive episode vs MDD with psychotic features. A: Depression has improved significantly and no longer with symptoms of acute psychosis though continues at times to intermittently discuss past belief of food being poisoned, but can now reality-test this. Anxiety persists and she often attributes any type of somatic symptom, which seem to be closely tied to periods of anxiety, to her medication and then requires frequent reassurance. She consents to tapering ativan further as she agrees this could have contributed to her morning dizziness. Also agrees the dizziness and nausea are symptoms she has often experienced in the past with anxiety. Remains anxiety about eating more and worries about her future including if her job will keep her and if she and her brother will continue to get along. She remains interested in discharging in time for her mother's [facility] services. No signs of excessive fluid intake with discontinuation of the fluid restrictions yesterday. Ongoing motivational interviewing regarding eating disorder treatment, she is not interested in this currently. MNPR due to recent paranoia and frequently seeks reassurance for anxiety symptoms Overall, I spent a total of 45 minutes on this case including meeting with the patient, reviewing the chart, nursing report, multidisciplinary team meeting, orders, return to work paperwork and documentation. (1) MDD (major depressive disorder), recurrent, severe, with psychosis: (2) Anorexia nervosa: (3) Eating disorder: (4) Psychogenic polydipsia: (5) Chronic hyponatremia: Plan 08/11/2023: Decrease ativan to 0.5mg HS. Consolidate Invega dose to 3mg BID. She declines further Effexor increase at this time due to concern for possible side effects. 08/10/2023: Continue current medications and tx plan. D/c fluid restrictions. 08/09/2023: Discontinue Buspar. Recheck BMP, phosphorus/magnesium. Will attempt to reduce HS lorazepam further tomorrow. 08/08/2023: Increase Invega to 1.5mg qbreakfast, 1.5mg qlunch and 3mg qdinner. 08/07/2023: Discontinue daytime scheduled lorazepam, switch to prn. Decrease lorazepam to 1mg HS. Start buspar 5mg BID. 08/06/2023: Decrease lorazepam at bedtime to 1.5 mg. Continue medications and treatment plan. 08/05/2023: Colace 200 mg twice daily. Tomorrow a.m. BMP/phosphorus/magnesium levels. Continue medications and treatment plan. Plan to decrease benzodiazepines prior to discharge. 08/04/2023: Start Colace 100 mg twice daily and MiraLAX as needed for constipation. Recheck sodium levels in 2 days. Continue other medications and treatment plan. 08/03/2023: Increase Effexor XR to 75 mg daily. Increase paliperidone to 3 mg at bedtime. Recheck sodium tomorrow. 08/02/2023: Increase lorazepam to 2 mg at bedtime. Recheck sodium and electrolytes in 2 to 3 days. Considering transfer for ECT. 08/01/2023: Check daily weights. Daily multivitamin, calcium and vitamin D supplement twice daily. Labs for CMP and ESR tomorrow morning. Continue Effexor. D/C olanzapine (pt refusing). Start paliperidone 1.5 mg at bedtime. 07/31/2023: Start Effexor XR 37.5 mg daily. Start lorazepam 0.5 mg twice daily and morning and afternoon and lorazepam 1 mg at bedtime. Continue olanzapine and BuSpar. Recheck sodium in 2 days. Continue fluid restriction. Patient MNPR given ongoing paranoia and concern for delusional thoughts. Continue other medications and treatment plan. 07/30/2023: The patient was admitted to the [facility] ([facility] mental health unit) on q15 min checks (behavioral with suicide precautions) for safety. The patient will participate in group, recreational, and milieu therapies and will be offered additional individual and family sessions as clinically appropriate. -Reduce olanzapine to 1.25mg HS po -Start Buspar 3.75mg BID -Mood Disorder Questionnaire to better assess for possible history of BPAD -Fluid restriction of 1.5L per day -Sodium monitoring weekly or prn -Fasting lipid panel and glucose tomorrow AM with Na+ re-check given some difficulty enforcing fluid restrictions on inpatient psychiatric setting Inventory Assets Strengths: supportive relationships, willing to get treatment Needs: safety and stabilization, medication adjustment, additional coping skills, increased outpatient services Suicide Risk Level Suicide Risk Level: Moderate (q15 min suicide checks) (denies current SI but with recent severe depression and psychosis, mood improving, feels safe on the unit and able to ask for support if needed) Risk Factors Assessment Male: No : Yes Do You Have Access To A Gun?: No Mental Health Diagnoses: Yes Previous Attempt: No Family History of Suicide: Yes Previous Psychiatric Hospitalization: No Hopelessness: No Protective Factors Assessment Supportive Family: Yes (brother) Interval History Identifying Information 53 yo woman with a history of anorexia, psychogenic polydipsia and depression vs BPAD admitted for increased restriction, weight loss, depression and excessive fluid intake. Chief Complaint "I'm dizzy, I think it's from the Invega or the Effexor". Review of Systems Sleep Information Total Hours of Sleep: 5.30 Sleep Comments: Meal Information Percent Meal Consumed - Breakfast: 100 Percent Meal Consumed - Lunch: 75 Percent Meal Consumed - Dinner: 90 Subjective Subjective Patient was seen & assessed and interval progress reviewed with treatment team nursing and social work. More somatic last evening with dizziness, declined offer for vital assessment. Refused her medications last evening initially but then accepted them. Declined the Effexor XR and Invega this morning initially but later accepted them with encouragement. Reported dizziness this morning and this afternoon reports nausea. She thinks her symptoms are from the Effexor and Invega. Reviewed that these symptoms were both present before she started either medication based on past conversations we've had. Reviewed that ativan was most likely medication to cause dizziness. She would like to decrease the ativan. Later acknowledges some of her symptoms could be due to stress after having a difficult phone call with her brother because she told him about two overdue credit card bills she has. She remains focused on goal of returning to her job as soon as possible. We review the paperwork from her job that she would like me to complete. She wishes for only one week of transition work and then full work, agrees to allow me to request that she get two weeks to ensure she has time to build back some of her strength. Ongoing motivational interviewing regarding the importance of her medication, she asks that Invega be moved to twice day instead of three times a day as she is feeling better able to eat her meals. Remains very future focused but not interested in further eating disorder treatment, wants to get back to work and to attend her mother's [facility] service this weekend. Physical Exam Psychiatric Orientation: alert and oriented x 3 Apperance: appropriately dressed and appropriately groomed Eye Contact: + fair eye contact Motor Behavior: no abnormal motor movements Speech: normal rate/rhythm/volume of speech Affect: + constricted affect Mood: + anxious mood Thought Process: + perseveration Thought Content: reality based without delusions Suicidal Thoughts: denies suicidal thoughts Homicidal Thoughts: denies homicidal thoughts Hallucinations: no auditory hallucinations and no visual hallucinations Insight: + limited insight Judgment: + limited judgement Vital Signs (Past 24 Hours) Last Vital Signs Temp 36.3 C L 08/11/23 06:00 Pulse 82 08/11/23 06:00 Resp 16 08/11/23 06:00 BP 114/76 08/11/23 06:00 Pulse Ox 98 08/11/23 06:00 O2 Del Method Room Air 08/11/23 06:00 Results & Data ([facility]) Current Inpatient Medications Current Inpatient Medications: Current Inpatient Medications Acetaminophen (Acetaminophen 325 Mg Tab) 650 mg PO Q4H PRN PRN Reason: Headache or Minor Fever Stop: 08/28/23 16:14 Last Admin: 08/10/23 16:37 Dose: 650 mg Al Hydrox/Mg Hydrox/Simethicone (Aluminum/Magnesium Susp 30 Ml Udc) 30 ml PO Q4H PRN PRN Reason: GI Upset Stop: 08/28/23 16:14 Last Admin: 08/02/23 19:19 Dose: 30 ml Bismuth Subsalicylate (Bismuth Subsalicylate Liqd 236 Ml) 15 ml PO PRN PRN PRN Reason: Loose Stool Stop: 08/28/23 16:14 Calcium/Vitamin D (Calcium 600mg + Vit D 400 Iu Tab) 1 tab PO BID ANDRE Stop: 08/31/23 11:29 Last Admin: 08/11/23 08:29 Dose: 1 tab Docusate Sodium (Docusate Sodium 100 Mg Cap) 200 mg PO BID ANDRE Stop: 09/04/23 20:59 Last Admin: 08/11/23 08:29 Dose: 200 mg Hydroxyzine HCl (Hydroxyzine Hcl 25 Mg Tab) 50 mg PO HSZ PRN PRN Reason: Insomnia Stop: 08/28/23 16:14 Hydroxyzine HCl (Hydroxyzine Hcl 25 Mg Tab) 25 mg PO Q4H PRN PRN Reason: Anxiety Stop: 08/28/23 16:14 Last Admin: 08/07/23 14:23 Dose: 25 mg Lorazepam (Lorazepam 1 Mg Tab) 1 mg PO HS ANDRE Stop: 09/06/23 21:59 Last Admin: 08/10/23 23:08 Dose: 1 mg Lorazepam (Lorazepam 0.5 Mg Tab) 0.25 mg PO BID PRN PRN Reason: Anxiety Stop: 09/06/23 15:29 Last Admin: 08/09/23 12:45 Dose: 0.25 mg Magnesium Hydroxide (Magnesium Hydroxide Susp 30 Ml Udc) 30 ml PO DAILY PRN PRN Reason: Constipation Stop: 08/28/23 16:14 Last Admin: 08/04/23 19:43 Dose: 30 ml Multivitamins/Folic Acid/Vitamin C (Multivitamin Chewable Tab) 1 tab PO QAM ANDRE Stop: 08/31/23 11:29 Last Admin: 08/11/23 08:29 Dose: 1 tab Paliperidone (Paliperidone 3 Mg Tabcr) 3 mg PO DAILYBD ANDRE Stop: 09/07/23 17:14 Last Admin: 08/10/23 17:59 Dose: Not Given Paliperidone (Paliperidone 1.5 Mg Tabcr) 1.5 mg PO BID@0800,1100 ANDRE Stop: 09/08/23 07:59 Last Admin: 08/10/23 11:53 Dose: 1.5 mg Polyethylene Glycol (Polyethylene (Miralax) 17 Gm Pack) 17 gm PO DAILY PRN PRN Reason: Constipation Stop: 09/03/23 13:08 Last Admin: 08/05/23 09:09 Dose: 17 gm Sodium Chloride (Sodium Chloride 0.65% Na Soln 45 Ml ([place])) 1 - 2 sprays NA PRN PRN PRN Reason: Nasal Dryness/Congestion Stop: 08/28/23 16:14 Venlafaxine HCl (Venlafaxine Hcl Xr 75 Mg Capxr) 75 mg PO QAM ANDRE Stop: 09/03/23 08:59 Last Admin: 08/10/23 08:55 Dose: 75 mg Mental Health & Subst Abuse Tx Psychiatrist Name of Psychiatrist: JOSHUA Psychiatrist's Date Of Appointment With Psychiatric Provider: 08/20/23 Time of Appointment with Psychiatrist: 11:15 am Psychiatric Appointment Comment: post hospital visit Therapist Name of Therapist: Alina Amaya Telehealth Appointment Therapist's Date of Therapist Appointment: 09/15/23 Time of Therapist Appointment: 1:00 PM Respite Care Provider Name of Respite Care Provider: [facility] Phone Number for Respite Care Provider: Date of Appointment with Respite Care Provider: 08/17/23 Time of Appointment with Respite Care Provider: 1:00 PM Case Management Appointment Comment: Xiao will meet with you at your home. Post Discharge Appointments Primary Care Physician Name Of Family Doctor/PCP: Dr. [facility] Date of Future Appointment with PCP: 08/17/23 Time of Appointment with PCP: 2:40pm Provider Appointment Comment: ask PCP for referral for neurology and a dialysis registered nurse Contact Information Discharge Discharge Address: [facility] [place] [phone]
[2023-08-11] MEDS: PALIPERIDONE 3 MG TABCR PO SCH (17:28)
[2023-08-11] MEDS: LORazepam 0.5 MG TAB PO SCH (21:17)
[2023-08-12] MEDS ORDERED: DESTROY THIS MEDICATION ONE (08:36)
--- NOTE | 2023-08-12 09:29 | Discharge Summary ---
Date of Service August 12, 2023 History of Present Illness Rachel was admitted from the medical floor for psychogenic polydipsia, mood lability and significant recent weight loss with restriction. Additional recent history per my consult note on 07/27/2023: "Rachel has previously been seen by the psychiatry consult service on multiple occasions due to presentations for hyponatremia, felt to be due to psychogenic polydipsia, and lack of po intake. During past assessments she has denied purposeful restriction and rather lack of po intake has seemed to be driven by possible delusions and disorganization vs delirium from hyponatremia. Today she denies purposeful restriction and rather reports lack of po intake due to persistent nausea which she recognizes is made worse by not eating. Then she will "binge" due to hunger but then feels sick and doesn't want to eat. She denies any episodes of purging. Agrees she likely drinks too much water, she isn't sure why. She reports family history of her father dying from stomach cancer and has previously wondered if she could have cancer causing her symptoms. Significant worsening in her functioning since her mother from brain cancer in April. Since then her mood has been cycling and she reports increased difficulty getting out of bed and caring for herself. She's been missing work and worries about being fired. 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 She isn't sure if she's ever experienced psychosis or marisela. Stopped taking haldol due to dry mouth side effects. She notes her brother was trying to get her treatment at [facility] eating disorder inpatient facility but there were no beds and "7 people in front of me" so she left AMA and knows her brother is upset because of this. She is willing to consider medication changes and willing for inpatient psychiatric treatment to help with her mood symptoms, poor functioning, poor po intake once medically stable." Today she presents with very flat affect and reports depressed mood with fatigue. She attributes the fatigue to starting olanzapine. She doesn't feel this is helping with ruminative worries about eating and worries about weight gain. She is willing to consider a lower dose and trying it for a few more days. She feels like the anorexia and lack of eating has gotten worse since April due to the stress and grief of her mother's . She describes depression symptoms including anhedonia, low energy, low motivation, decreased concentration, increased sleep. Denies any SI. She agrees she may be experiencing anorexia with recent worsened restriction and compulsive thoughts about food including "ruminating after I ate about what I ate and just the thought of eating". States she may be interested in possible residential eating disorder treatment. She feels she drinks a lot of fluid due to thirst and doesn't feel this at all due to her eating disorder or as a substitute to feel less hungry. She feels like this has been going on for a couple of years. She notes that when she doesn't drink enough water she gets "dehydrated, and I feel tired, and I haven't peed all morning". She says typically she pees "once an hour". This frequency of urination is also disruptive at work. She seems somewhat surprised to hear such frequency of urination is abnormal. Currently prescribed psychiatric medications of haldol 2.5mg HS (stopped taking this 1-2 months ago due to dry mouth side effect) and Buspar 3.75mg BID (has been taking this, finds this helpful for anxiety, seems to wear off quickly). Psychiatric ROS notable for her denial of any history of past episodes of marisela nor psychosis (both at odds with chart review notable for past history of paranoia/psychosis and multiple prior mood stabilizer trials and past impulsive behaviors per collateral suggestive of possible marisela) nor OCD. Reports history of anorexia and as a teenager had binging/purging episodes. Physical Exam Vital Signs (Past 24 Hours) Last Vital Signs Temp 36.3 C L 08/12/23 06:00 Pulse 92 H 08/12/23 06:14 Resp 16 08/12/23 06:00 BP 120/80 08/12/23 06:14 Pulse Ox 98 08/11/23 06:00 O2 Del Method Room Air 08/11/23 06:00 See admission H&P and DOD summary. Principal Diagnosis Anorexia, Bipolar affective disorder current depressive episode Psychiatric Data See daily stay summary. In short, patient was engaged with the social/therapeutic milieu of the unit, safety was maintained and the patient was cooperative with care. Rachel consistently ate her meals but was noted to be quite ruminative at times about meal selections and anxiety about her weight. However, she responded well to limits set on this as she frequently desired repeated reassurance as a means of trying to cope with her anxiety. She tolerated her fluid restriction and did not engage in psychogenic polydipsia once restrictions were lifted. She experienced frequent somatic symptoms and often attributed this to medication side effects but responded well to discussions about this and was able to remain on her medications. Medication changes included initiation of Invega 3mg BID for BPAD/paranoia and off-label for ruminations related to eating, Effexor XR 75mg for bipolar depression, and taper of lorazepam 0.5mg HS for 7 days then 0.25mg HS for 7 days then discontinue with additional lorazepam 0.25mg daily prn (7 tabs for one month) for panic attack and she tolerated this well. Baseline labs of fasting glucose, fasting lipid profile, and weight were preformed and within normal limits. Recommend repeat fasting glucose, HbA1c and fasting lipid profile every 12 weeks and then annually. If symptoms arise recommend checking BP, EKG, prolactin level as clinically indicated or relevant. A family session was held and safety plan was completed prior to discharge. She was able to acknowledge the lack of control she can experience related to her anorexia and was regretful that she had been restricting prior to hospitalization. She does not desire inpatient or IOP eating disorder treatment at this time but is willing to consider this in the future if she starts to struggle with restriction or urges to binge/purge once back at home. On the day of discharge she stated her mood was "alright" and remained future-oriented including being with her brother, attending her mother's services, seeing extended family, seeing her dogs, getting back to work and engaging in aftercare appointments for psychiatry, therapy, case management, primary care and neurology. Day of Discharge Assessment Today the patient voices readiness for discharge. They note improvement in mood and anxiety. They deny thoughts of harm to self or others. Thoughts are organized and they are clinically improved from admission. There is no evidence of psychosis. They improved in the hospital with support and medication adjustments. They agree to take medications as prescribed and keep follow-up appointments. At the time of the discharge they are deemed to be stable and appropriate for outpatient level of care. They are not deemed to be at imminent risk of harm to self or others. They are aware of emergency and crisis services. Knows to call 911 or go to nearest emergency care center if in a crisis which cannot be handled as an outpatient. Transition of Care Transition Of Care Record: was reviewed with the patient Advance Directives Advance Directives Information Provided: No Advance Directives: No Mental Health Advance Directive: No Advance Directives on File: No Living Will: No Power of Stack Yield Engineer: No Advance Directives Reason:: Declines as Mental Health Visit. Suicide Risk Level Suicide Risk Level Comments: Acute risk is low given improvement in mood and denial of SI, lack of access to lethal means, improvement in sleep, hopefulness and improvement in psychosis. Chronic risk is moderate given multiple non-modifiable risk factors: psychiatric co-morbid diagnoses, emotional reactivity, mood disorder, eating disorder, family history of by suicide but also with protective factors including: employed, good social support, sense of responsibility to family and social supports, outpatient care in place, positive problem solving, capacity to establish therapeutic alliance, capacity for self-observation. Counseled on ways to reduce acute and chronic risk including engaging with outpatient providers, using safety plan if needed, utilizing supports, taking medication, and using coping skills. Modifiable risk factors of depression, paranoia, and food restriction were addressed during hospitalization through development of new coping skills, structured meals, family meeting, safety planning, and medication adjustments. Risk Factors Assessment Male: No : Yes Do You Have Access To A Gun?: No Mental Health Diagnoses: Yes Previous Attempt: No Family History of Suicide: Yes Previous Psychiatric Hospitalization: No Hopelessness: No Protective Factors Assessment Employed: Yes (on leave from work currently) Stable Relationships: Yes Supportive Family: Yes (brother) Good Rapport with Provider: Yes Discharge Data Consultations 08/02/23 09:36 Consult Hospitalist Stat Lab Results 07/31/23 08/02/23 08/04/23 07:31 07:28 07:44 ESR 4 Sodium 136 133 L 135 L Potassium 4.0 Chloride 102 Carbon Dioxide 29 Anion Gap 2 L BUN 38 H Creatinine 0.72 Est Cr Clr Drug Dosing 71.8 Est GFR ( Amer) 110.8 Est GFR (Non-Af Amer) 95.6 BUN/Creatinine Ratio 52.8 H Glucose 98 Fasting Glucose 92 Calcium 8.7 Phosphorus 3.8 Magnesium 1.9 Total Bilirubin 0.6 AST 28 ALT 37 Alkaline Phosphatase 43 Total Protein 5.2 L Albumin 3.2 L Globulin 2.0 L Albumin/Globulin Ratio 1.6 Triglycerides 46 Cholesterol 179 LDL Cholesterol, Calc 104 VLDL Cholesterol, Calc 9 HDL Cholesterol 66 Cholesterol/HDL Ratio 2.7 08/06/23 08/10/23 07:16 07:15 ESR Sodium 136 138 Potassium 4.0 3.8 Chloride 102 104 Carbon Dioxide 30 29 Anion Gap 4 5 BUN 28 H 23 Creatinine 0.73 0.60 Est Cr Clr Drug Dosing 80.1 96.4 Est GFR ( Amer) 109.0 120.6 Est GFR (Non-Af Amer) 94.0 104.1 BUN/Creatinine Ratio 38.4 H 38.3 H Glucose 94 94 Fasting Glucose Calcium 8.6 8.4 L Phosphorus 4.7 4.2 Magnesium 2.0 1.9 Total Bilirubin AST ALT Alkaline Phosphatase Total Protein Albumin Globulin Albumin/Globulin Ratio Triglycerides Cholesterol LDL Cholesterol, Calc VLDL Cholesterol, Calc HDL Cholesterol Cholesterol/HDL Ratio Hospital Course (1) MDD (major depressive disorder), recurrent, severe, with psychosis: (2) Anorexia nervosa: (3) Eating disorder: (4) Psychogenic polydipsia: (5) Chronic hyponatremia: (6) Bipolar affective disorder, depressed, moderate: Plan 08/12/2023: Ready for discharge, no dizziness this morning after reducing ativan dose last evening and was still able to sleep well. 08/11/2023: Decrease ativan to 0.5mg HS. Consolidate Invega dose to 3mg BID. She declines further Effexor increase at this time due to concern for possible side effects. 08/10/2023: Continue current medications and tx plan. D/c fluid restrictions. 08/09/2023: Discontinue Buspar. Recheck BMP, phosphorus/magnesium. Will attempt to reduce HS lorazepam further tomorrow. 08/08/2023: Increase Invega to 1.5mg qbreakfast, 1.5mg qlunch and 3mg qdinner. 08/07/2023: Discontinue daytime scheduled lorazepam, switch to prn. Decrease lorazepam to 1mg HS. Start buspar 5mg BID. 08/06/2023: Decrease lorazepam at bedtime to 1.5 mg. Continue medications and treatment plan. 08/05/2023: Colace 200 mg twice daily. Tomorrow a.m. BMP/phosphorus/magnesium levels. Continue medications and treatment plan. Plan to decrease benzodiazepines prior to discharge. 08/04/2023: Start Colace 100 mg twice daily and MiraLAX as needed for constipation. Recheck sodium levels in 2 days. Continue other medications and treatment plan. 08/03/2023: Increase Effexor XR to 75 mg daily. Increase paliperidone to 3 mg at bedtime. Recheck sodium tomorrow. 08/02/2023: Increase lorazepam to 2 mg at bedtime. Recheck sodium and electrolytes in 2 to 3 days. Considering transfer for ECT. 08/01/2023: Check daily weights. Daily multivitamin, calcium and vitamin D supplement twice daily. Labs for CMP and ESR tomorrow morning. Continue Effexor. D/C olanzapine (pt refusing). Start paliperidone 1.5 mg at bedtime. 07/31/2023: Start Effexor XR 37.5 mg daily. Start lorazepam 0.5 mg twice daily and morning and afternoon and lorazepam 1 mg at bedtime. Continue olanzapine and BuSpar. Recheck sodium in 2 days. Continue fluid restriction. Patient MNPR given ongoing paranoia and concern for delusional thoughts. Continue other medications and treatment plan. 07/30/2023: The patient was admitted to the [facility] ([facility]) on q15 min checks (behavioral with suicide precautions) for safety. The patient will participate in group, recreational, and milieu therapies and will be offered additional individual and family sessions as clinically appropriate. -Reduce olanzapine to 1.25mg HS po -Start Buspar 3.75mg BID -Mood Disorder Questionnaire to better assess for possible history of BPAD -Fluid restriction of 1.5L per day -Sodium monitoring weekly or prn -Fasting lipid panel and glucose tomorrow AM with Na+ re-check given some difficulty enforcing fluid restrictions on inpatient psychiatric setting Mental Health & Subst Abuse Tx Psychiatrist Name of Psychiatrist: JOSHUA Psychiatrist's Date Of Appointment With Psychiatric Provider: 08/20/23 Time of Appointment with Psychiatrist: 11:15 am Psychiatric Appointment Comment: post hospital visit Therapist Name of Therapist: Jose Luis Serrano Therapist's Date of Therapist Appointment: 09/15/23 Time of Therapist Appointment: 1:00 PM Therapy Appointment Comment: Virtual Aligner Name of Aligner: [facility] Phone Number for Aligner: Date of Appointment with Aligner: 08/17/23 Time of Appointment with Aligner: 1:00 PM Case Management Appointment Comment: Xiao will meet with you at your home. Post Discharge Appointments Primary Care Physician Name Of Family Doctor/PCP: Jose Luis Maki Primary Care Date of Future Appointment with PCP: 08/17/23 Time of Appointment with PCP: 2:40pm Provider Appointment Comment: ask PCP for referral for neurology and a chili pepper grinder Neurologist Name of Neurologist: JENNIFER [facility] - [facility] Neurologist's Date of Appointment with Neurologist: 09/29/23 Time of Appointment with Neurologist: 9:30 AM Neurology Appointment Comment: [address] [place] [address] Other #1: Name of Aftercare Appointment: [email or web address] Phone Number of Aftercare Appointment: [email or web address] or call [email or web address] #2: Name of Aftercare Appointment: Jose Luis Hammond Phone Number of Aftercare Appointment: [phone] Date of Aftercare Appointment: 09/23/23 Time of Aftercare Appointment: 9:00 AM Aftercare Appointment Comment: virtual Contact Information Discharge Discharge Address: [address] [place] [address] Discharge Plan Discharge Items Patient Disposition: Home - Self-Care Reason For Visit: UNSPECIFIED DEPRESSIVE DISORDER Discharge Diagnosis: Anorexia, Bipolar affective disorder depressive episode Activity: Resume your previous activity Non-emergency contact: Primary Care Provider, Psychiatrist, Therapist and Director Of State Call non-emergency contact if: you have any medication questions and your symptoms worsen Follow-up/Referrals: Hernando Maki MD [Primary Care Provider] - Diet: Regular Addtl Attending Provider Instructions: SPECIAL CARE INSTRUCTIONS: 1. Follow through with your scheduled aftercare appointments. If unable to keep an appointment, please call to reschedule. 2. Take your medication only as prescribed. Medication should not be changed or stopped without the approval of your doctor. In the event of worsening symptoms or concerns about side effects, contact your doctor immediately. 3. Utilize new healthy coping skills, anger management skills, and stress management skills learned during your hospitalization. Journal feelings and process them with a support person. Identify stressors or situations that may result in relapse, deterioration or inappropriate behaviors and develop a plan to deal with those issues. 4. If your coping skills are ineffective and you are in crisis, contact your outpatient providers for direction. If unable to reach your providers, please call the [facility] CRISIS LINE AT , go to the [facility] walk-in center at [address], [address], [place], or go to the closest Emergency Room. 5. Avoid alcohol and un-prescribed drugs. 6. You have been provided with the Mental Health Advance Directives Pamphlet for your review. 7. Your condition is stable for discharge to outpatient level of care, but recovery is an ongoing process. Ifthoughts to harm yourself or others return, follow the safety plan developed during your stay. Planning for a safe return home includes securing weapons. Our treatment team recommends weaponsbe removed from the home until your outpatient provider reassesses your progress. In rare cases where the items themselvescannot be removed, guns and ammunitionshould be secured separatelyand keys stored by a reliable personoutside of the home. If you were admitted on an involuntary commitment, the police or other legal authorities may be involved in this process. AFTERCARE APPOINTMENTS: * Please call your insurance company prior to your scheduled appointment to confirm your aftercare providers are covered. Take your insurance information to your appointments. WHO TO CALL AND WHEN: Medical Emergencies: For questions or emergencies related to your hospital stay, please contact the Inpatient Behavioral Health Unit at [phone]. A business objects developer is on-call 07/09 for the Behavioral Health Unit for emergencies At any time you feel your situation is an emergency, you may also call 911 immediately. National Crisis Hotline: 988 Pending Studies at Discharge: No Stand-Alone Forms: My [facility] Medications and DC Order Prescriptions: New lorazepam 0.5 mg Tablet 0.25 mg PO DAILY PRN (Reason: panic attack/anxiety) 30 Days Qty: 7 0RF lorazepam 0.5 mg Tablet 0.5 mg PO HS 14 Days Qty: 11 0RF Rx Instructions: Take 1 tab nightly for 7 days and then reduce to 1/2 tab nightly for 7 days and then stop. paliperidone [Invega] 3 mg Tablet Extended Release 24 Hr 3 mg PO BIDM 30 Days Qty: 60 0RF venlafaxine 75 mg Capsule,Extended Release 24hr 75 mg PO QAM 30 Days Qty: 30 0RF Caltrate 600-D Plus Minerals 600 mg calcium- 800 unit-50 mg Tablet 1 tab PO BID 30 Days Qty: 60 0RF docusate sodium 100 mg Capsule 200 mg PO BID 30 Days Qty: 120 0RF Flintstones Complete (iron) Tablet,Chewable 1 tab PO QAM 30 Days Qty: 30 0RF Continued fluticasone propionate 50 mcg/actuation spray,suspension 2 spray INTRANASAL QAM PRN (Reason: Congestion) Discontinued haloperidol 5 mg Tablet 2.5 mg PO HS Qty: 30 0RF buspirone 7.5 mg tablet 5 mg PO BID Qty: 0 0RF potassium chloride 10 mEq Tablet,Er Particles/Crystals 20 meq PO DAILY Qty: 60 0RF Discharge Orders: Discharge Order (Routine); Ordered 08/12/23 Ordered By: Josie Pederson Admission Data Admit Date/Time: 07/29/23 16:06 Attending Provider: Josie Pederson Admit Provider: Josie Pederson Primary Care Provider: Hernando Maki Other Interventions: Discharge Summary Assessment (RN) Last Done: 08/12/23 10:02 PSY Interdisciplinary Discharge Planning Last Done: 08/12/23 11:05 Coding Level of Care Code 74551 D/C day mgmt > 30 min Diagnoses MDD (major depressive disorder), recurrent, severe, with psychosis F33.3 Anorexia nervosa F50.00 Eating disorder F50.9 Psychogenic polydipsia R63.1; F54 Chronic hyponatremia E87.1 Bipolar affective disorder, depressed, moderate F31.32
== END 2023-08-12 11:18 | disposition home or self-care (01) | DRG 885 ==
LOC: 3S 16:06 → SUATTDRO 16:06 → 3S 08-02 16:26

== ENCOUNTER 2023-10-19 12:30 | Inpatient (IN) ==
[2023-10-19 12:48] VITALS: O2SAT 98
[2023-10-19 13:28] LABS: Hematocrit (blood only) 41.3 % (37.0-47.0); Hemoglobin 13.6 g/dl (12.0-16.0); Mean Corpuscular Hemoglobin 31.3 pg (25.0-34.0); Mean Corpuscular Hgb Conc 32.9 g/dL (32.0-36.0); Mean Corpuscular Volume 95.2 fL (80.0-100.0); Red Blood Count 4.34 M/uL (4.20-5.40)
[2023-10-19 13:38] LABS: Appearance Urine Clear (Clear); Bacteria Urine Automated None Seen (None Seen); Bilirubin Urine Negative (Negative); Blood Urine Negative (Negative); Cast Urine Automated 0-2 /lpf (0-2); Color Urine Yellow; Epithelial Cell Urine Auto 0-2 /hpf (0-2); Glucose Urine UA Negative (Negative); Ketones Urine Negative (Negative); Leukocyte Esterase Urine Trace (Negative); Nitrite Urine Negative (Negative); Protein Urine Negative (Negative); RBC Urine Automated 0-2 /hpf (0-2); Specific Gravity Urine 1.019 (1.000-1.030); Urobilinogen Urine Negative (Negative); WBC Urine Automated 0-5 /hpf (0-5); pH Urine 7.5 (4.5-7.5)
[2023-10-19 13:46] LABS: Acetaminophen < 3 ug/ml (10-30); Salicylate < 3.0 mg/dl (3.0-30)
[2023-10-19 13:53] LABS: Albumin Globulin Ratio 1.8 (0.9-2); Albumin Level 4.4 gm/dl (3.4-5.0); BUN Creatinine Ratio 44.4 (10-20); Bilirubin,Total 0.4 mg/dl (0.2-1.0); Calcium 9.3 mg/dl (8.6-10.3); Creatinine Clr Calc Pharmacy 92.8 ml/min; Est GFR (African American) 118.7 ml/min; Est GFR (Non-African American) 102.4 ml/min; Globulin 2.5 gm/dl (2.5-4.0); Potassium 4.5 mmol/L (3.5-5.1); Total Protein 6.9 gm/dl (6.0-8.3)
[2023-10-19 14:04] LABS: Thyroid Stimulating Hormone 1.558 uIu/ml (0.300-4.500)
--- NOTE | 2023-10-19 14:06 | Emergency Department Note ---
Impression & Plan Suicidal ideation, Delusional thoughts, Noncompliance with medications ED Provider Note NAME: MONICA ERWIN AGE: 53 SEX: F : 1970 ARRIVES VIA: Walk-In INFORMANT: [Patient][brother] ED PROVIDER(S): [Melvin Garrison MD] CHIEF COMPLAINT: Mental health evaluation HISTORY OF PRESENT ILLNESS: The patient is a 53-year-old female with a history of bipolar disease. She was discharged from this hospital's psychiatric floor in late July. For the last few weeks, the patient has not been taking her prescribed medications. She has been ruminating about suicide. She has no plan outlined. The thoughts are always there. She also believes that her water has been tampered with. She believes someone put something in the water to cause her to want to eat. She states that she is always thinking about food and eating. When the patient was in the ED waiting room, she asked if we could kill her (as per the brother). The brother is at the bedside. The patient has been talking to crisis over the last few weeks, things are escalating though to the point where a hospital evaluation was felt warranted today. Of note, the patient is asking if she may have had a stroke. She states she had a headache recently and, coupled with her thoughts, this had her concerned. No history of previous CVA. PMHx/PSHx/Social Hx: See Below PHYSICAL EXAM: GENERAL: Patient is in no acute distress. Seems slightly anxious/manic. HEENT: No acute trauma, normocephalic atraumatic, mucous membranes moist, no nasal congestion. NECK: No stridor, no adenopathy, no meningismus, trachea is midline. LUNGS: Clear to auscultation bilaterally, no wheeze, no rhonchi, breath sounds equal. HEART: Without murmurs gallops or rubs, regular rate and rhythm. ABDOMEN: Soft, nontender, no peritonitis. EXTREMITIES: No cyanosis, full range of motion of all the joints without pain or difficulty. NEUROLOGIC: Oriented x 3, no acute motor or sensory deficits, no focal weakness. SKIN: No jaundice, no diaphoresis. Psychiatric: Currently cooperative, currently voluntary. Admits to suicidal thoughts but cannot outline any active plan. DIFFERENTIAL DIAGNOSIS: Psychosis, medication noncompliance, bipolar disease, CVA, intracranial bleeding, electrolyte disturbance, among others. EMERGENCY DEPARTMENT PROCEDURES: MEDICAL DECISION MAKING: There was no leukocytosis or concerning anemia. There was a normal platelet count. No renal failure or significant electrolyte abnormality. No concerning liver enzyme elevation. Patient appeared to be in a euthyroid state. Urinalysis did not show findings of infection. Urine tox was negative. Aspirin, Tylenol and alcohol levels were undetectable. COVID test returned negative. A brain CT was done, there was no acute bleed or mass effect. On exam, the patient admitted to some suicidal thoughts. She was cooperative and voluntary. No acute focal neurologic findings by my exam. No speech slur. The patient was felt medically clear. She was seen by psychiatry case management. Bed referrals were made. The patient was seen by our [facility] psychiatric floor, 3 S. She has been accepted to their unit voluntarily. The appropriate paperwork was completed and signed. Prior/Outside records/notes reviewed: Psychiatric discharge summary note from 08/12/2023 describing her presentation, care in the hospital and discharge plans. Imaging/x-ray results per my interpretation: Chronic Medical/Social conditions affecting care: History of bipolar disease. Care/Management discussed with: Psychiatry case management. Level of care consideration(s): After review of the information above and other included data: --I believe the patient requires escalation of care to admission DISPOSITION: Voluntary psychiatric admission to our hospital psychiatric floor, 3 S. Past Med/Surg History Problem List (Updated 10/19/23 @ 16:24 by Melvin Garrison MD) Noncompliance with medications (Acute) Delusional thoughts (Acute) Suicidal ideation (Acute) Bipolar affective disorder, depressed, moderate Anorexia nervosa Dietary restriction Elevated troponin (Acute) Leukopenia (Acute) Chest pain (Acute) Hypokalemia Acute metabolic encephalopathy Acute hyponatremia (Acute) Drug-induced leukopenia Chronic leukopenia Neutropenia Concussion Acute hyponatremia (Acute) Pituitary adenoma Adjustment disorder with mixed anxiety and depressed mood Medical History Chronic hyponatremia MDD (major depressive disorder), recurrent, severe, with psychosis Unspecified mood [affective] disorder Eating disorder Psychogenic polydipsia Pelvic fracture Lumbar disc disease No chronic diseases present Surgical History Status post endovenous radiofrequency ablation (RFA) of saphenous vein Inguinal hernia No significant past surgical history Family History Mother Breast cancer Social History Smoking Status: Former smoker Hx Alcohol Use: No Hx Substance Use: No Preferred Language: Romansh Communication Ability: Effective Ballistics Expert Required: No Beliefs That Will Affect Care: None Current Living Situation: Alone Current Living Situation Comment: doesn't live in a great neighborhood Feels Safe at Home: Yes Gender Identity: Female Assistive Devices: None Allergies Allergies Allergy/AdvReac Type Severity Reaction Status Date / Time latex Allergy Intermediate Rash Verified 07/03/23 15:56 peanut Allergy Intermediate EDEMA/RASH Verified 07/03/23 15:56 wheat Allergy Intermediate CELIAC Verified 07/03/23 15:56 DISEASE escitalopram AdvReac Severe Seizure Verified 07/03/23 15:56 oxycodone AdvReac Severe Seizure Verified 07/03/23 15:56 acetaminophen AdvReac Intermediate Vomiting Verified 07/03/23 15:56 bupropion [From Wellbutrin] AdvReac Intermediate VISUAL Verified 07/03/23 15:56 DISTURBANCE Home Meds Home Medications Medication Instructions Recorded Confirmed Invega 3 mg PO BID 10/19/23 10/19/23 buspirone 7.5 mg tablet 7.5 mg PO BID 10/19/23 10/19/23 venlafaxine 75 mg PO QAM 10/19/23 10/19/23 Results & Data (ED) Vital Signs Vital Signs - 24 hr 10/19/23 12:45 10/19/23 13:08 Temperature 36.6 C Temperature Source Temporal Artery Scan Pulse Rate 67 Respiratory Rate 18 18 Respiratory Effort / Characteristics Non-Labored Spontaneous Respiratory Depth Normal Respiratory Pattern Regular Blood Pressure 126/93 Blood Pressure Mean 104 Blood Pressure Position Sitting Pulse Oximetry 98 Oxygen Delivery Method Room Air Sepsis Recent Fever Within 48 Hours No Sepsis New/Unexplained Change in Mental Status No Sepsis Action Taken by Nursing No Action Required Home Medications Current Medication List: was personally reviewed by me Laboratory Data Attestation: I reviewed the patient's lab results. 10/19/23 13:06 10/19/23 13:06 Lab Results 10/19/23 10/19/23 Range/Units 13:06 13:14 WBC 5.40 (4.8-10.8) K/ul RBC 4.34 (4.20-5.40) M/uL Hgb 13.6 (12.0-16.0) g/dl Hct 41.3 (37.0-47.0) % MCV 95.2 (80.0-100.0) fL MCH 31.3 (25.0-34.0) pg MCHC 32.9 (32.0-36.0) g/dL RDW Std Deviation 43.6 (36.4-46.3) fL RDW Coeff of Emanuel 12.5 (11.5-14.5) % Plt Count 260 (130-400) K/uL MPV 9.0 L (9.4-12.4) fL Immature Gran % (Auto) 0.2 % Neut % (Auto) 60.9 % Lymph % (Auto) 29.3 % [place] % (Auto) 8.9 % Eos % (Auto) 0.0 % Baso % (Auto) 0.7 % Neut # (Auto) 3.29 (1.40-6.50) K/uL Lymph # (Auto) 1.58 (1.20-3.40) K/uL [place] # (Auto) 0.48 (0.11-0.59) K/uL Eos # (Auto) 0.00 (0.00-0.50) K/uL Baso # (Auto) 0.04 (0.00-0.20) K/uL Immature Gran # (Auto) 0.01 (0.01-0.20) K/uL Sodium 135 L (136-145) mmol/L Potassium 4.5 (3.5-5.1) mmol/L Chloride 100 (98-107) mmol/L Carbon Dioxide 30 (21-32) mmol/L Anion Gap 5 (3-11) BUN 28 H (6-23) mg/dl Creatinine 0.63 (0.6-1.2) mg/dl Est Cr Clr Drug Dosing 92.8 ml/min Est GFR ( Amer) 118.7 ml/min Est GFR (Non-Af Amer) 102.4 ml/min BUN/Creatinine Ratio 44.4 H (10-20) Glucose 90 (70-99(Fasting)) mg/dl Calcium 9.3 (8.6-10.3) mg/dl Total Bilirubin 0.4 (0.2-1.0) mg/dl AST 19 (13-39) U/L ALT 31 (7-52) U/L Alkaline Phosphatase 86 (34-104) U/L Total Protein 6.9 (6.0-8.3) gm/dl Albumin 4.4 (3.4-5.0) gm/dl Globulin 2.5 (2.5-4.0) gm/dl Albumin/Globulin Ratio 1.8 (0.9-2) TSH 1.558 (0.300-4.500) uIu/ml Urine Color Yellow Urine Appearance Clear (Clear) Urine pH 7.5 (4.5-7.5) Ur Specific Pfeifer 1.019 (1.000-1.030) Urine Protein Negative (Negative) Urine Glucose (UA) Negative (Negative) Urine Ketones Negative (Negative) Urine Blood Negative (Negative) Urine Nitrite Negative (Negative) Urine Bilirubin Negative (Negative) Urine Urobilinogen Negative (Negative) Ur Leukocyte Esterase Trace H (Negative) Urine WBC (Auto) 0-5 (0-5) /hpf Urine RBC (Auto) 0-2 (0-2) /hpf U Hyaline Cast (Auto) 0-2 (0-2) /lpf U Epithel Cells (Auto) 0-2 (0-2) /hpf Urine Bacteria (Auto) None Seen (None Seen) Salicylates < 3.0 L (3.0-30) mg/dl Urine Opiates Screen Neg (Neg) Ur Methadone, Qual Neg (Neg) Urine Fentanyl Screen Neg (Neg) Acetaminophen < 3 L (10-30) ug/ml Urine Barbiturates Neg (Neg) Ur Phencyclidine (PCP) Neg (Neg) U Amphetamin/Meth Scrn Neg (Neg) MDMA (Ecstasy) Screen Neg (Neg) U Benzodiazepines Scrn Neg (Neg) Ur Cocaine Metabolite Neg (Neg) U Marijuana (THC) Screen Neg (Neg) Ethyl Alcohol mg/dL < 10.0 (<10.0) mg/dl SARS-CoV-2, RNA, NAAT NEGATIVE (NEGATIVE) Imaging Data Radiologist's Impression: Head CT 10/19/23 13:57 CT head/brain wo con CLINICAL HISTORY: confusion, ricks Technique: Contiguous axial CT images of the head were acquired from the base of the skull to the vertex without intravenous contrast administration. Images were viewed in brain, subdural and bone windows. Automated dose lowering techniques and/or adjustment according to patient size were utilized for this exam. Comparison: Comparison is made to CT head 07/03/2023 Findings: The ventricles, basal cisterns, and cerebral sulci are normal. There is no acute intracranial hemorrhage or evidence of acute territorial infarction. Neither mass effect, shift of the midline structures, nor abnormal extra-axial fluid collections are shown. Imaged portions of the paranasal sinuses and mastoid air cells are clear. The orbits appear normal. There are no acute fractures of the calvaria or scalp swelling. Impression: No acute intracranial hemorrhage, no evidence of acute territorial infarction or other acute intracranial disease process. ACT 112: Negative or not required by law. Electronically signed by: Philippe Jeffries M.D. 10/19/2023 2:39 PM Discharge Plan Visit Data Chief Complaint: Mental Health Evaluation Stated Complaint: HELP STABLIZED ON MEDICATION ED Provider: Melvin Garrison Discharge Problem: Suicidal ideation, Delusional thoughts, Noncompliance with medications Patient Disposition: Admitted As Inpatient Condition: Good Forms Stand Alone Forms: [facility], Suicide Prevention Resources Prescriptions Prescriptions: No Action Invega 3 mg tablet 3 mg PO BID venlafaxine 75 mg capsule 75 mg PO QAM buspirone 7.5 mg tablet 7.5 mg PO BID Referrals Referrals: Hernando Maki MD [Primary Care Provider] -
[2023-10-19 14:16] LABS: Basophils # (auto) 0.04 K/uL (0.00-0.20); Basophils % (auto) 0.7 %; Immature Granulocytes # (auto) 0.01 K/uL (0.01-0.20); Immature Granulocytes % (auto) 0.2 %; Lymphocytes # (auto) 1.58 K/uL (1.20-3.40); Lymphocytes % (auto) 29.3 %; Monocytes # (auto) 0.48 K/uL (0.11-0.59); Monocytes % (auto) 8.9 %; Neutrophils # (auto) 3.29 K/uL (1.40-6.50); Neutrophils % (auto) 60.9 %; Platelet Count 260 K/uL (130-400); RDW Coefficient of Variation 12.5 % (11.5-14.5); RDW Standard Deviation 43.6 fL (36.4-46.3)
[2023-10-19 14:18] LABS: Amphetamines+Metham, Urine Neg (Neg); Barbiturates, Urine Neg (Neg); Benzodiazepine, Urine Neg (Neg); Cocaine, Urine Neg (Neg); Fentanyl, Urine Neg (Neg); MDMA (Ecstacy), Urine Neg (Neg); Marijuana, Urine Neg (Neg); Methadone, Urine Neg (Neg); Opiate, Urine Neg (Neg); Phencyclidine, Urine Neg (Neg)
--- NOTE | 2023-10-19 14:40 | CT Scan Report ---
CT head/brain wo con CLINICAL HISTORY: confusion, ricks Technique: Contiguous axial CT images of the head were acquired from the base of the skull to the niko jerson without intravenous contrast administration. Images were viewed in brain, subdural and bone [facility]. Automated dose lowering techniques and/or adjustment according to patient size were utilized for this exam. Comparison: Comparison is made to CT head 07/03/2023 Findings: The ventricles, basal cisterns, and cerebral sulci are normal. There is no acute intracranial hemorrh age or evidence of acute territorial infarction. Neither mass effect, shift of the midline structures , nor abnormal extra-axial fluid collections are shown. Imaged portions of the paranasal sinuses and mastoid air cells are clear. The orbits appear normal. There are no acute fractures of the calvaria or scalp swelling. Impression: No acute intracranial hemorrhage, no evidence of acute territorial infarction or other acute intracra nial disease process. ACT 112: Negative or not required by law. Electronically signed by: Philippe Jeffries M.D. 10/19/2023 2:39 PM
[2023-10-19] MEDS ORDERED: BISMUTH SUBSALICYLATE LIQD 236 ML PO PRN (17:02)
[2023-10-19] MEDS ORDERED: SODIUM CHLORIDE 0.65% NA SOLN 45 ML (OCEAN) PRN (17:02)
[2023-10-19] MEDS ORDERED: hydrOXYzine HCl 25 MG TAB PO PRN ×2 (17:02)
[2023-10-19] MEDS ORDERED: ACETAMINOPHEN 325 MG TAB PO PRN (17:02)
[2023-10-19] MEDS ORDERED: ALUMINUM/MAGNESIUM SUSP 30 ML UDC PO PRN (17:02)
[2023-10-19] MEDS ORDERED: risperiDONE 0.5 MG TABLET PO PRN (17:29)
--- OUTSIDE RECORDS SUMMARY | 2023-10-19 20:10 | External Medical Summary ---
Author Name Unknown Address Unknown Organization [id number]:[facility] - [address] [place] [address] Laboratory Report Ordering Provider Test Date Status ARMANDO NEVAREZ 10/05/2023 15:54:51 Final Observation Date Value Abnormality Reference (Units ) Status Magnesium 10/05/2023 15:54:51 2.1 1.5-2.6 (m g/dL) Final Performing Location [facility] - [address] [place] [address]
--- OUTSIDE RECORDS SUMMARY | 2023-10-19 20:10 | External Medical Summary ---
Author Name Unknown Address Unknown Organization [id number]:[facility] [place] - [address] [place] [address] Laboratory Report Ordering Provider Test Date Status ARMANDO NEVAREZ 10/05/2023 15:54:51 Final Observation Date Value Abnormality Reference (Units ) Status BUN 10/05/2023 15:54:51 17 6-20 (mg/dL) Final Creatinine 10/05/2023 15:54:51 0.6 0.5-1.0 (mg/dL) Final Glomerular filtration rate/1.73 sq M.predicted [Volume Rate/Area] in Serum, Plasma or Blood by Creatinine-based formula (CKD-EPI) 10/05/2023 15:54:51 >90 >=60 (mL/min) Final eGFR is calculated based on the CKD-EPI 2020 equation. Sodium 10/05/2023 15:54:51 129 Below low normal 135 -146 (mmol/L) Final Potassium 10/05/2023 15:54:51 3.9 3.5-5.1 (m mol/L) Final Cl 10/05/2023 15:54:51 94 Below low normal 98- 107 (mmol/L) Final CO2 10/05/2023 15:54:51 25 22-32 (mmo l/L) Final Anion gap 10/05/2023 15:54:51 10 7-15 (mmol /L) Final Glucose 10/05/2023 15:54:51 88 70-120 (mg /dL) Final Calcium 10/05/2023 15:54:51 9.4 8.4-10.2 ( mg/dL) Final Performing Location [facility] - [address] [address]
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
--- OUTSIDE RECORDS SUMMARY | 2023-10-19 20:10 | External Medical Summary ---
Author Name Unknown Address Unknown Organization K01:[facility] - [address] [place] [address] Laboratory Report Ordering Provider Test Date Status ARMANDO NEVAREZ 10/05/2023 15:54:51 Final Observation Date Value Abnormality Reference (Units ) Status Phosphate 10/05/2023 15:54:51 3.2 2.5-4.8 (m g/dL) Final Performing Location [facility] - [address] [place] [address]
--- OUTSIDE RECORDS SUMMARY | 2023-10-19 20:11 | External Medical Summary ---
Author Name Unknown Address Unknown Organization K01:[facility] [place] [address] [place] [address] Laboratory Report Ordering Provider Test Date Status ARMANDO NEVAREZ 08/23/2023 16:49:45 Final Observation Date Value Abnormality Reference (Units ) Status BUN 08/23/2023 16:49:45 13 6-20 (mg/dL) Final Creatinine 08/23/2023 16:49:45 0.9 0.5-1.0 (mg/dL) Final Glomerular filtration rate/1.73 sq M.predicted [Volume Rate/Area] in Serum, Plasma or Blood by Creatinine-based formula (CKD-EPI) 08/23/2023 16:49:45 73 >=60 (mL/min) Final eGFR is calculated based on the CKD-EPI 2020 equation Sodium 08/23/2023 16:49:45 124 Below low normal 135 -146 (mmol/L) Final Potassium 08/23/2023 16:49:45 4.4 3.5-5.1 (m mol/L) Final Cl 08/23/2023 16:49:45 88 Below low normal 98- 107 (mmol/L) Final CO2 08/23/2023 16:49:45 28 22-32 (mmo l/L) Final Anion gap 08/23/2023 16:49:45 8 7-15 (mmol /L) Final Glucose 08/23/2023 16:49:45 82 70-120 (mg /dL) Final Calcium 08/23/2023 16:49:45 8.9 8.4-10.2 ( mg/dL) Final Performing Location [facility] - [address] [facility] [place] [address]
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
--- OUTSIDE RECORDS SUMMARY | 2023-10-19 20:11 | External Medical Summary ---
Author Name Unknown Address Unknown Organization [id number] - [address] [place] [address] Laboratory Report Ordering Provider Test Date Status ARMANDO NEVAREZ 08/30/2023 15:48:03 Final Observation Date Value Abnormality Reference (Units ) Status Osmolality 08/30/2023 15:48:03 266 Below low normal 27 8-305 (mOsm/kg) Final Performing Location [facility] - [address] [place] [address]
--- OUTSIDE RECORDS SUMMARY | 2023-10-19 20:11 | External Medical Summary ---
Author Name Unknown Address Unknown Organization [facility] - [address] [place] [address] Laboratory Report Ordering Provider Test Date Status ARMANDO NEVAREZ 08/30/2023 15:48:03 Final Observation Date Value Abnormality Reference (Units ) Status Phosphate 08/30/2023 15:48:03 3.9 2.5-4.8 (m g/dL) Final Performing Location [facility] - [address] [place] [address]
--- OUTSIDE RECORDS SUMMARY | 2023-10-19 20:11 | External Medical Summary ---
Author Name Unknown Address Unknown Organization [id number] [place] [address] [place] [place] [address] Laboratory Report Ordering Provider Test Date Status ARMANDO NEVAREZ 08/23/2023 16:49:45 Final Observation Date Value Abnormality Reference (Units ) Status Osmolality, Urine 08/23/2023 16:49:45 192 50 -1200 (mOsm/kg) Final Performing Location [facility] - [address] [address]
--- OUTSIDE RECORDS SUMMARY | 2023-10-19 20:11 | External Medical Summary ---
Author Name Unknown Address Unknown Organization [id number]:[facility] - [address] [place] [address] Laboratory Report Ordering Provider Test Date Status VICTORIA NEVAREZNEELIMA 09/17/2023 14:09:37 Final Observation Date Value Abnormality Reference (Units ) Status Sodium, Urine 09/17/2023 14:09:37 31 (mmol/ L) Final Potassium, Urine 09/17/2023 14:09:37 38.9 (mm ol/L) Final Chloride, Urine 09/17/2023 14:09:37 49 (mmo l/L) Final Performing Location [facility]ORY [facility] - [address] [place] [address]
--- OUTSIDE RECORDS SUMMARY | 2023-10-19 20:11 | External Medical Summary ---
Author Name Unknown Address Unknown Organization K[facility] [place] [address] [place] [address] Laboratory Report Ordering Provider Test Date Status ARMANDO NEVAREZ 09/17/2023 14:09:37 Final Observation Date Value Abnormality Reference (Units ) Status Osmolality, Urine 09/17/2023 14:09:37 511 50 -1200 (mOsm/kg) Final Performing Location [facility] - [address] [place] [address]
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
--- OUTSIDE RECORDS SUMMARY | 2023-10-19 20:11 | External Medical Summary ---
Author Name Unknown Address Unknown Organization [facility] - [address] [place] [address] Laboratory Report Ordering Provider Test Date Status ARMANDO NEVAREZ 09/17/2023 14:09:37 Final Observation Date Value Abnormality Reference (Units ) Status Osmolality 09/17/2023 14:09:37 270 Below low normal 27 8-305 (mOsm/kg) Final Performing Location [facility] - [address] [place] [address]
--- OUTSIDE RECORDS SUMMARY | 2023-10-19 20:11 | External Medical Summary ---
Author Name Unknown Address Unknown Organization K01:[facility] [place] [address] [facility] [address] [place] [address] Laboratory Report Ordering Provider Test Date Status ARMANDO NEVAREZ 08/30/2023 15:48:03 Final Observation Date Value Abnormality Reference (Units ) Status BUN 08/30/2023 15:48:03 17 6-20 (mg/dL) Final Creatinine 08/30/2023 15:48:03 0.7 0.5-1.0 (mg/dL) Final Glomerular filtration rate/1.73 sq M.predicted [Volume Rate/Area] in Serum, Plasma or Blood by Creatinine-based formula (CKD-EPI) 08/30/2023 15:48:03 >90 >=60 (mL/min) Final eGFR is calculated based on the CKD-EPI 2020 equation Sodium 08/30/2023 15:48:03 125 Below low normal 135 -146 (mmol/L) Final Potassium 08/30/2023 15:48:03 4.4 3.5-5.1 (m mol/L) Final Cl 08/30/2023 15:48:03 89 Below low normal 98- 107 (mmol/L) Final CO2 08/30/2023 15:48:03 28 22-32 (mmo l/L) Final Anion gap 08/30/2023 15:48:03 8 7-15 (mmol /L) Final Glucose 08/30/2023 15:48:03 87 70-120 (mg /dL) Final Calcium 08/30/2023 15:48:03 9.1 8.4-10.2 ( mg/dL) Final Performing Location [facility] - [address] [place] [address]
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
--- OUTSIDE RECORDS SUMMARY | 2023-10-19 20:11 | External Medical Summary ---
Author Name Unknown Address Unknown Organization K0G:[facility] - [address] [place] [address] Laboratory Report Ordering Provider Test Date Status ARMANDO NEVAREZ 09/17/2023 14:09:37 Final Observation Date Value Abnormality Reference (Units ) Status BUN 09/17/2023 14:09:37 22 Above high normal 6-20 (mg/dL) Final Creatinine 09/17/2023 14:09:37 0.6 0.5-1.0 (mg/dL) Final Glomerular filtration rate/1.73 sq M.predicted [Volume Rate/Area] in Serum, Plasma or Blood by Creatinine-based formula (CKD-EPI) 09/17/2023 14:09:37 >90 >=60 (mL/min) Final eGFR is calculated based on the CKD-EPI 2020 equation. Sodium 09/17/2023 14:09:37 130 Below low normal 135 -146 (mmol/L) Final Potassium 09/17/2023 14:09:37 4.4 3.5-5.1 (m mol/L) Final Cl 09/17/2023 14:09:37 95 Below low normal 98- 107 (mmol/L) Final CO2 09/17/2023 14:09:37 27 22-32 (mmo l/L) Final Anion gap 09/17/2023 14:09:37 8 7-15 (mmol /L) Final Glucose 09/17/2023 14:09:37 102 70-120 (mg /dL) Final Calcium 09/17/2023 14:09:37 9.0 8.4-10.2 ( mg/dL) Final Performing Location LABORATORY [facility] 0 - [address] [place] [address]
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
--- OUTSIDE RECORDS SUMMARY | 2023-10-19 20:11 | External Medical Summary | Summary of Care ---
Author Name Unknown Organization [facility] Address [address] [place] [address] Phone [phone] Care Team Providers Care Tractor Sweeper Operator Name Role Phone Hernando Maki MD Primary Care Provider + Reason for Visit * Reason Onset Date Comments Order Request 09/17/2023 Encounter Details Date Type Department Care Team (Late st Contact Info) Description 09/17/2023 Telephone Family Practice [facility] [address] [place] [address] Hernando Maki MD [address] [facility] [place] [address] Order Request Allergies Active Allergy Reactions Criticality Noted Date Comments [place]-Containing Products Edema airway High 08/15/2021 As per [...] Hyponatremia 05/22/2023 Overview: psychogenic polydipsia, admit/seizure '. [facility] History of multiple concussions 03/05/2023 History of major trauma 03/05/2023 Chronic rhinitis 03/05/2023 Mood disorder 03/05/2023 Paranoia 03/05/2023 Pituitary adenoma 01/26/2023 Overview: 2021 MRI brain WNL Food insecurity 01/25/2023 Overview: Per [facility] Protocol Varicose veins of right lower extremity with com plications 07/17/2021 Routine general medical exam ination at a health care facility 02/09/2013 Overview: psychogenic polydipsia -' admit seizure. Sees [place]--Dwight Lee. Prior -Dr Chen [facility]-dx Bipolar Unsure who biological parents are. Raised by Stefanie Royal 04/10 EEG WNL [facility] History of pituitary adenoma 02/09/2013 Lumbar disc [...] Description 09/17/2023 2:30 PM EDT Laboratory Laboratory, [facility] [address] [phone] Sera Gibson [address] [address] Anorexia nervosa, restricting type 09/23/2023 9:00 AM EDT Telemedicine Psychiatry, [facility] 200 [facility] [place], [place] [address] Lara Hammond CRNP 200 [facility] [place] [phone] 09/24/2023 2:00 PM EDT Office Visit Nephrology, [facility] [address] [facility] [place] [address] Jose Odom MD 200 [facility] [place], [place] [address] 09/28/2023 3:20 PM EDT Office Visit Family Practice [facility] 132 [facility] [place] [address] Hernando Maki MD [address] [place] [address] 11/09/2023 11:00 AM EDT Imaging Radiology, [place] [address] [facility] [place], [place] [address] 02/02/2024 3:00 PM EST Office Visit Gynecology/Obstetric s [facility] 132 [facility] [place] [address] Vidhya Campo PA-C 132 [facility] [place] [address] Pending Results Name Type Priority Associated Diagnoses Date /Time ELECTROLYTES, RANDOM URINE Lab Routine Anorexia nervosa, restricting type 09/17/2023 2:09 PM EDT OSMOLALITY, URINE Lab Routine Anorexia nervosa, restricting type 09/17/2023 2:09 PM EDT OSMOLALITY, SERUM Lab Routine Anorexia nervosa, restricting type 09/17/2023 2:09 PM EDT BASIC METABOLIC PANEL Lab Routine Anorexia nervosa, restricting type 09/17/2023 2:09 PM EDT Scheduled Orders Name Type Priority Associated Diagnoses Orde r Schedule ELECTROLYTES, RANDOM URINE Lab Routine Anorexia nervosa, restricting type Expected: 09/17/2023 (Approximate), Expires: 09/16/2024 OSMOLALITY, URINE Lab Routine Anorexia nervosa, restricting type Expected: 09/17/2023 (Approximate), Expires: 09/16/2024 OSMOLALITY, SERUM Lab Routine Anorexia nervosa, restricting type Expected: 09/17/2023, Expires: 09/16/2024 BASIC METABOLIC PANEL Lab Routine Anorexia nervosa, restricting type Expected: 09/17/2023 (Approximate), Expires: 09/16/2024 Health Maintenance Due Date Last Done Comments [...] Diagnosis Anorexia nervosa, restricting type Anorexia nervosa Anorexia nervosa, restricting type- Primary Anorexia nervosa documented in this encounter Care Teams Tractor Sweeper Operator Relationship Specialty Start Date End Date Hernando Maki MD [address] [phone] PCP - General Family Medicine 05/17/14 documented as of this encounter
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
--- OUTSIDE RECORDS SUMMARY | 2023-10-19 20:11 | External Medical Summary ---
Author Name Unknown Address Unknown Organization [id number]:LABORATORY [facility] - [address] [place] [address] Laboratory Report Ordering Provider Test Date Status ARMANDO NEVAREZ 08/30/2023 16:00:28 Final Observation Date Value Abnormality Reference (Units ) Status Osmolality, Urine 08/30/2023 16:00:28 119 50 -1200 (mOsm/kg) Final Performing Location [facility]ORY [facility] - [address] [place] [address]
--- OUTSIDE RECORDS SUMMARY | 2023-10-19 20:11 | External Medical Summary ---
Author Name Unknown Address Unknown Organization [id number]:LABORATORY [facility] - [address] [facility] [address] Laboratory Report Ordering Provider Test Date Status ARMANDO NEVAREZ 08/23/2023 16:49:45 Final Observation Date Value Abnormality Reference (Units ) Status Sodium, Urine 08/23/2023 16:49:45 <20 (mmol/ L) Final Potassium, Urine 08/23/2023 16:49:45 15.3 (mm ol/L) Final Chloride, Urine 08/23/2023 16:49:45 <20 (mmo l/L) Final Performing Location LABORATORY [facility] - [address] [facility] [address]
--- OUTSIDE RECORDS SUMMARY | 2023-10-19 20:11 | External Medical Summary ---
Author Name Unknown Address Unknown Organization [id number]:[facility] - [address] [place] [address] Laboratory Report Ordering Provider Test Date Status ARMANDO NEVAREZ 08/23/2023 16:49:45 Final Observation Date Value Abnormality Reference (Units ) Status Osmolality 08/23/2023 16:49:45 261 Below low normal 27 8-305 (mOsm/kg) Final Performing Location [facility] - [address] [place] [address]
--- OUTSIDE RECORDS SUMMARY | 2023-10-19 20:11 | External Medical Summary ---
Author Name Unknown Address Unknown Organization [id number][facility] [place] [address] [facility] [address] Laboratory Report Ordering Provider Test Date Status VICTORIA NEVAREZNEELIMA 08/30/2023 16:00:28 Final Observation Date Value Abnormality Reference (Units ) Status Sodium, Urine 08/30/2023 16:00:28 <20 (mmol/ L) Final Potassium, Urine 08/30/2023 16:00:28 28.0 (mm ol/L) Final Chloride, Urine 08/30/2023 16:00:28 <20 (mmo l/L) Final Performing Location [facility] [address] [facility] [address]
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
--- OUTSIDE RECORDS SUMMARY | 2023-10-19 20:11 | External Medical Summary ---
Author Name Unknown Address Unknown Organization [id number]:[facility] - [address] [place] [address] Laboratory Report Ordering Provider Test Date Status ARMANDO NEVAREZ 08/23/2023 16:49:45 Final Observation Date Value Abnormality Reference (Units ) Status Phosphate 08/23/2023 16:49:45 4.1 2.5-4.8 (m g/dL) Final Performing Location [facility] - [address] [place] [address]
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
[2023-10-19] MEDS: risperiDONE 1 MG TABLET PO SCH (20:38)
[2023-10-20 06:34] VITALS: RESP 16
--- NOTE | 2023-10-20 08:45 | History & Physical ---
Date of Service October 20, 2023 Impression / Recommendations Impression RACHEL ERWIN is a 53-year-old woman who currently lives in [place] alone, has a history of MDD with psychotic features, eating disorder restricting and binge purge type, psychogenic polydipsia, and BPAD, and was admitted on 10/19/23 17:20 on a 201 voluntary commitment for worsening depression with SI and psychosis. Diagnostically consistent with unspecified mood disorder with differential including BPAD current depressive episode with psychosis vs primary psychotic disorder vs MDD with psychotic features vs substance-induced/withdrawal symptoms from recent cannabis use and eating disorder binge purge pattern. Discussed medication treatment options in detail. Discussed risks, benefits and alternatives. Patient would like to start and consented to Invega for mood stabilization and psychosis, Effexor XR for depression and naltrexone as off- label use for binge/purging. Reviewed side effects including but not limited to: GI, CORDERO, sexual side effects with Effexor ; movement (TD, NMS), cardiac (QTc prolongation), and metabolic (stroke, insulin resistance) and necessity for fasting lipid and glucose labwork and AIMS done with score of 0 with INvega; GI symptoms/liver damage with naltrexone. MNPR due to paranoia Overall I spent a total of 75 minutes for this admission including review of chart records, review of labwork, direct evaluation of the patient, counseling the patient, ordering medication, risk assessment, discussion with the psychiatric liason RN and documentation in the electronic health record. (1) Psychosis with severe depression due to bipolar affective disorder: (2) Binge eating disorder: (3) Depression with suicidal ideation: Plan 10/20/2023: The patient was admitted to the [facility] ([facility] unit) on q15 min checks (behavioral with suicide precautions) for safety. The patient will participate in group, recreational, and milieu therapies and will be offered additional individual and family sessions as clinically appropriate. -Start Invega 1.5mg BIDM -Start Effexor XR 75mg qAM -Start naltrexone 25mg qdinner -Severity Of Illness Coordinator consult -Fasting lipid panel, glucose in AM Inventory Assets Strengths: supportive relationships, willing to get treatment Needs: safety and stabilization, medication adjustment, additional coping skills, increased outpatient services Suicide Risk Level Suicide Risk Level: High-Moderate (q15 min suicide checks) (depression with SI and psychosis, but feels safe in the hospital and able to ask for support ) Risk Factors Assessment Male: No : Yes Do You Have Access To A Gun?: No Health Problems: No Mental Health Diagnoses: Yes Substance Use Disorders: No Previous Attempt: No Family History of Suicide: No Previous Psychiatric Hospitalization: Yes Hopelessness: Yes Protective Factors Assessment Employed: Yes Stable Relationships: Yes Supportive Family: Yes Psychiatric History Identifying Data RACHEL ERWIN is a 53-year-old woman who currently lives in [place] alone, has a history of MDD with psychotic features, eating disorder restricting and binge purge type, psychogenic polydipsia, and BPAD, and was admitted on 10/19/23 17:20 on a 201 voluntary commitment for worsening depression with SI and psychosis. Chief Complaint "Do you think I can leave?". History of Present Illness Rachel presented to the hospital with her brother due to his concerns for her worsening depression, SI and possible psychosis. While in the emergency department she made multiple statements of suicide including asking her brother if she could be killed. She also reported concerns for various physical conditions in the emergency department such as fearing she may have experienced a stroke or could some type of infection. Today she wonders if she should leave the hospital but agrees that she needs help and is willing to remain here. She reports that a few weeks ago she used cannabis and then stopped taking her psychiatric medications (Invega 3mg BIDM and Effexor XR 75mg daily). Since then she reports a significant increase in eating disorder problems over the past couple of weeks, including overeating, not eating three meals a day, and ruminative thoughts about food. She describes thoughts such as eating out of trash cans and stealing food off of people's plates due to her ruminations and degree of feeling out of control with food. She admits to binging almost every day and purging twice in the past couple of weeks. She has been off her psychiatric medications, including Invega, for approximately two weeks and believes this may be contributing to her eating disorder problems. She has been experiencing thoughts of suicide for the past two weeks, which she attributes to her eating disorder problems feeling overwhelming and out of control. She reports that even when talking to someone about her issues, she still engages in disordered eating behaviors. She had a video consultation with a therapist during which she wanted to go to the bathroom and throw up. Apparently besides work has been spending almost all of her time lying in bed with low motivation, anhedonia, and poor self-care. She admits to using marijuana twice recently, which caused her to hear voices (mumbled, lessening now) and a sense of paranoia. She reports that these symptoms have started to improve. She also mentions a concern about her neighbors potentially putting an appetite stimulant in her water. Apparently has also recently referenced a possible concern about army men killing people at [employer]. She states that her work has been affected by her eating disorder, making it difficult for her to concentrate. 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 Prior to stopping her psychiatric medications, she felt that they were helping with her eating disorder to some extent. Her brother has been visiting her but she feels their relationship is strained due to her recent suicidal thoughts and depression. She feels he is growing "frustrated with me". Also with apparent recent episodes of self-harm via superficial cuts to her wrist. Past Psychiatric History Current Psychiatric Diagnosis: MDD, Anorexia, Psychogenic polydipsia, and Bipolar Outpatient Services: [facility] at [facility] for psych, [facility] for therapy, [facility] Previous Psych Admissions: [facility] in July 2023 Do You Have Access To A Gun?: No History of Previous Suicide Attempt: No Past Medication Trials: risperidone (that made me groggy), Seroquel (made me tired), Prozac (yeah it helped, no side effects), Haldol (made my mouth dry), Diaz (liked it), Lamictal, Abilify (didn't feel well), escitalopram (seizure), Wellbutrin (visual disturbance) Past Head Trauma/Neuro History History of Concussion/Seizure: Yes hx multiple concussions and seizures in the past (reports she sees neurology about once per year) Allergies Allergy/AdvReac Type Severity Reaction Status Date / Time latex Allergy Intermediate Rash Verified 07/03/23 15:56 peanut Allergy Intermediate EDEMA/RASH Verified 07/03/23 15:56 wheat Allergy Intermediate CELIAC Verified 07/03/23 15:56 DISEASE escitalopram AdvReac Severe Seizure Verified 07/03/23 15:56 oxycodone AdvReac Severe Seizure Verified 07/03/23 15:56 acetaminophen AdvReac Intermediate Vomiting Verified 07/03/23 15:56 bupropion [From Wellbutrin] AdvReac Intermediate VISUAL Verified 07/03/23 15:56 DISTURBANCE Home Medications Medication Instructions Recorded Confirmed Type buspirone 7.5 mg tablet 7.5 mg PO BID 10/19/23 10/19/23 History docusate sodium 100 mg capsule 200 mg PO BID 10/20/23 10/20/23 History paliperidone 3 mg tablet,extended 3 mg PO BID 10/20/23 10/20/23 History release 24 hr venlafaxine 75 mg capsule,extended 75 mg PO DAILY 10/20/23 10/20/23 History release 24 hr Family History Family History of: Other Mood Disorders Family Mental Health History Comment: unsure Alcohol History Hx of Alcohol Use Over the Past 12 Months: No AUDIT Total Score: 0 Smoking Use Have You Smoked or Used Tobacco Products in the Last 30 Days: No Smoking Status: Former smoker Substance History Hx of Prescription Med Misuse Over the Past 12 Months: No Hx of Over the Counter Med Misuse Over the Past 12 Months: No Hx of Inhalent Misuse Over the Past 12 Months: No Hx of Organic Substance Use Over the Past 12 Months: Yes (Marijuana) Hx of Illegal Substances/Street Drug Use Over Past 12 Months: No Problems as a Result of Past Substance Use: Other Problems as a Result of Past Substance Use Comments: used weed one time in the p ast 2 weeks Used twice, caused her to hear voices "mumbling", she endorses increased paranoia "I just felt really weird" Personal History Living Arrangements: Apartment Highest Grade Completed: Some College 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 Marital Status: Single Beliefs That Will Affect Care: None Current Legal Problems: No Hx Legal Problems: No Hx Traumatic Life Events: Yes Patient History Medical History Chronic hyponatremia MDD (major depressive disorder), recurrent, severe, with psychosis Unspecified mood [affective] disorder Eating disorder Psychogenic polydipsia Pelvic fracture Lumbar disc disease No chronic diseases present Surgical History Status post endovenous radiofrequency ablation (RFA) of saphenous vein Inguinal hernia No significant past surgical history Family History Mother Breast cancer Social History Smoking Status: Former smoker Hx Alcohol Use: No Hx Substance Use: No Preferred Language: Polish Communication Ability: Effective Iron Installer Required: No Beliefs That Will Affect Care: None Current Living Situation: Alone Current Living Situation Comment: doesn't live in a great neighborhood Feels Safe at Home: Yes Gender Identity: Female Assistive Devices: None Review of Systems Review of Systems: All systems reviewed & are unremarkable except as noted in HPI & below Physical Exam Psychiatric: Orientation: alert and oriented x 3 Apperance: appropriately dressed and appropriately groomed Eye Contact: + fair eye contact Motor Behavior: no abnormal motor movements Speech: normal rate/rhythm/volume of speech Affect: + depressed affect and + flat affect Mood: + depressed mood and + anxious mood Thought Process: + concrete thought process Thought Content: + preoccupation, + obsessions, + paranoid, + delusions, + hopelessness and + guilt Suicidal Thoughts: denies suicidal plan and denies suicidal intent; + reports suicidal thoughts Homicidal Thoughts: denies homicidal thoughts Hallucinations: no auditory hallucinations and no visual hallucinations Cognition: recent memory grossly intact, remote memory grossly intact, attention grossly intact and language grossly intact Estimated Intelligence: consistent with education level Insight: + limited insight Judgment: + limited judgement Vital Signs (Past 24 Hours): Last Vital Signs Temp 36.5 C 10/20/23 06:32 Pulse 76 10/20/23 06:33 Resp 16 10/20/23 06:32 BP 117/82 10/20/23 06:33 Pulse Ox 98 10/19/23 17:54 O2 Del Method Room Air 10/19/23 17:54 Exam Statement: A physical exam was performed in the ED by Dr. Garrison for the purposes of medical clearance. I accept that physical as correct and adequate for the purposes of the inpatient physical exam. Results & Data (U) Laboratory Results Laboratory Results - last 24 hr 10/19/23 10/19/23 13:06 13:14 WBC 5.40 RBC 4.34 Hgb 13.6 Hct 41.3 MCV 95.2 MCH 31.3 MCHC 32.9 RDW Std Deviation 43.6 RDW Coeff of Emanuel 12.5 Plt Count 260 MPV 9.0 L Immature Gran % (Auto) 0.2 Neut % (Auto) 60.9 Lymph % (Auto) 29.3 [place] % (Auto) 8.9 Eos % (Auto) 0.0 Baso % (Auto) 0.7 Neut # (Auto) 3.29 Lymph # (Auto) 1.58 [place] # (Auto) 0.48 Eos # (Auto) 0.00 Baso # (Auto) 0.04 Immature Gran # (Auto) 0.01 Sodium 135 L Potassium 4.5 Chloride 100 Carbon Dioxide 30 Anion Gap 5 BUN 28 H Creatinine 0.63 Est Cr Clr Drug Dosing 92.8 Est GFR ( Amer) 118.7 Est GFR (Non-Af Amer) 102.4 BUN/Creatinine Ratio 44.4 H Glucose 90 Calcium 9.3 Total Bilirubin 0.4 AST 19 ALT 31 Alkaline Phosphatase 86 Total Protein 6.9 Albumin 4.4 Globulin 2.5 Albumin/Globulin Ratio 1.8 TSH 1.558 Urine Color Yellow Urine Appearance Clear Urine pH 7.5 Ur Specific [place] 1.019 Urine Protein Negative Urine Glucose (UA) Negative Urine Ketones Negative Urine Blood Negative Urine Nitrite Negative Urine Bilirubin Negative Urine Urobilinogen Negative Ur Leukocyte Esterase Trace H Urine WBC (Auto) 0-5 Urine RBC (Auto) 0-2 U Hyaline Cast (Auto) 0-2 U Epithel Cells (Auto) 0-2 Urine Bacteria (Auto) None Seen Salicylates < 3.0 L Urine Opiates Screen Neg Ur Methadone, Qual Neg Urine Fentanyl Screen Neg Acetaminophen < 3 L Urine Barbiturates Neg Ur Phencyclidine (PCP) Neg U Amphetamin/Meth Scrn Neg MDMA (Ecstasy) Screen Neg U Benzodiazepines Scrn Neg Ur Cocaine Metabolite Neg U Marijuana (THC) Screen Neg Ethyl Alcohol mg/dL < 10.0 SARS-CoV-2, RNA, NAAT NEGATIVE Current Inpatient Medications Current Inpatient Medications: Current Inpatient Medications Acetaminophen (Acetaminophen 325 Mg Tab) 650 mg PO Q4H PRN PRN Reason: Headache or Minor Fever Stop: 11/18/23 17:01 Al Hydrox/Mg Hydrox/Simethicone (Aluminum/Magnesium Susp 30 Ml Udc) 30 ml PO Q4H PRN PRN Reason: GI Upset Stop: 11/18/23 17:01 Bismuth Subsalicylate (Bismuth Subsalicylate Liqd 236 Ml) 15 ml PO PRN PRN PRN Reason: Loose Stool Stop: 10/03/24 17:01 Hydroxyzine HCl (Hydroxyzine Hcl 25 Mg Tab) 50 mg PO HSZ PRN PRN Reason: Insomnia Stop: 11/18/23 17:01 Hydroxyzine HCl (Hydroxyzine Hcl 25 Mg Tab) 25 mg PO Q4H PRN PRN Reason: Anxiety Stop: 11/18/23 17:01 Magnesium Hydroxide (Magnesium Hydroxide Susp 30 Ml Udc) 30 ml PO DAILY PRN PRN Reason: Constipation Stop: 11/18/23 17:01 Risperidone (Risperidone 1 Mg Tablet) 1 mg PO QPM ANDRE Stop: 11/18/23 20:59 Last Admin: 10/19/23 20:38 Dose: 1 mg Risperidone (Risperidone 0.5 Mg Tablet) 0.5 mg PO BID PRN PRN Reason: Agitation Sodium Chloride (Sodium Chloride 0.65% Na Soln 45 Ml ([place])) 1 - 2 sprays NA PRN PRN PRN Reason: Nasal Dryness/Congestion Stop: 11/18/23 17:01
[2023-10-20] MEDS ORDERED: PALIPERIDONE 3 MG TABCR PO PRN (10:42)
[2023-10-20] MEDS: VENLAFAXINE HCL XR 75 MG CAPXR PO SCH (11:06)
[2023-10-20] MEDS: PALIPERIDONE 1.5 MG TABCR PO SCH (11:06)
[2023-10-20] MEDS ORDERED: risperiDONE 0.5 MG TABLET PO PRN (11:34)
[2023-10-20] MEDS: NALTREXONE HCL 50 MG TAB PO SCH (17:29)
--- NOTE | 2023-10-21 08:48 | Psychiatric Progress Note ---
Date of Service October 21, 2023 Impression / Recommendations Impression MONICA ERWIN is a 53-year-old woman who currently lives in [place] alone, has a history of MDD with psychotic features, eating disorder restricting and binge purge type, psychogenic polydipsia, and BPAD, and was admitted on 10/19/23 17:20 on a 201 voluntary commitment for worsening depression with SI and psychosis. Diagnostically consistent with unspecified mood disorder with differential including BPAD current depressive episode with psychosis vs primary psychotic disorder vs MDD with psychotic features vs substance-induced/withdrawal symptoms from recent cannabis use and eating disorder binge purge pattern. A: Ongoing flat affect, isolative, ruminations suggestive of depression and eating disorder. Tolerating re-initiation of medications. Fasting labs done, reviewed, safe to continue use of Invega. MNPR due to paranoia Overall, I spent a total of 25 minutes on this case including meeting with the patient, reviewing the chart, nursing report, multidisciplinary team meeting, orders, and documentation. (1) Psychosis with severe depression due to bipolar affective disorder: (2) Binge eating disorder: (3) Depression with suicidal ideation: Plan 10/21/2023: Continue current medications and tx plan. 10/20/2023: The patient was admitted to the [facility] ([facility] inpatient mental health unit) on q15 min checks (behavioral with suicide precautions) for safety. The patient will participate in group, recreational, and milieu therapies and will be offered additional individual and family sessions as clinically appropriate. -Start Invega 1.5mg BIDM -Start Effexor XR 75mg qAM -Start naltrexone 25mg qdinner -Educational Psychology Teacher consult -Fasting lipid panel, glucose in AM Inventory Assets Strengths: supportive relationships, willing to get treatment Needs: safety and stabilization, medication adjustment, additional coping skills, increased outpatient services Suicide Risk Level Suicide Risk Level: High-Moderate (q15 min suicide checks) (depression with SI and psychosis, but feels safe in the hospital and able to ask for support ) Risk Factors Assessment Male: No : Yes Do You Have Access To A Gun?: No Health Problems: No Mental Health Diagnoses: Yes Substance Use Disorders: No Previous Attempt: No Family History of Suicide: No Previous Psychiatric Hospitalization: Yes Hopelessness: Yes Protective Factors Assessment Employed: Yes Stable Relationships: Yes Supportive Family: Yes Interval History Identifying Information MONICA ERWIN is a 53-year-old woman who currently lives in [place] alone, has a history of MDD with psychotic features, eating disorder restricting and binge purge type, psychogenic polydipsia, and BPAD, and was admitted on 10/19/23 17:20 on a 201 voluntary commitment for worsening depression with SI and psychosis. Chief Complaint "Kind of tired, I think it's the medication". Review of Systems Sleep Information Total Hours of Sleep: 6.30 Meal Information Percent Meal Consumed - Breakfast: 100 Percent Meal Consumed - Lunch: 100 Percent Meal Consumed - Dinner: 100 Subjective Subjective Patient was seen & assessed and interval progress reviewed with treatment team nursing and social work. The sales trainee met with her yesterday. Today reports feeling "kind of tired" which she attributes to the medication but remains willing to continue the medication. Denies any side effects from the naltrexone. Continues to have ruminative thoughts about food but reports lessening of binge/purge urges. Focused on LOS, hoping to leave soon and get back to work but agreeable to staying until at least Wednesday. Denies SI today, attributes this change to "I don't want to do that". Physical Exam Psychiatric Orientation: alert and oriented x 3 Apperance: appropriately dressed and appropriately groomed Eye Contact: + fair eye contact Motor Behavior: no abnormal motor movements Speech: normal rate/rhythm/volume of speech Affect: + depressed affect and + flat affect Mood: + depressed mood and + anxious mood Thought Process: + concrete thought process Thought Content: + preoccupation, + obsessions and + paranoid Suicidal Thoughts: denies suicidal plan and denies suicidal intent; + reports suicidal thoughts Homicidal Thoughts: denies homicidal thoughts Hallucinations: no auditory hallucinations and no visual hallucinations Cognition: recent memory grossly intact, remote memory grossly intact, attention grossly intact and language grossly intact Estimated Intelligence: consistent with education level Insight: + limited insight Judgment: + limited judgement Vital Signs (Past 24 Hours) Last Vital Signs Temp 36.2 C L 10/21/23 06:54 Pulse 102 H 10/21/23 06:54 Resp 16 10/21/23 06:54 BP 120/84 10/21/23 06:55 Pulse Ox 98 10/21/23 06:54 O2 Del Method Room Air 10/21/23 06:54 Results & Data ([facility]) Laboratory Results Laboratory Results - last 24 hr 10/21/23 07:51 Estimat Average Glucose Pending Hemoglobin A1c Pending Triglycerides 59 Cholesterol 189 LDL Cholesterol, Calc 115 VLDL Cholesterol, Calc 12 HDL Cholesterol 62 Cholesterol/HDL Ratio 3.0 Current Inpatient Medications Current Inpatient Medications: Current Inpatient Medications Acetaminophen (Acetaminophen 325 Mg Tab) 650 mg PO Q4H PRN PRN Reason: Headache or Minor Fever Stop: 11/18/23 17:01 Al Hydrox/Mg Hydrox/Simethicone (Aluminum/Magnesium Susp 30 Ml Udc) 30 ml PO Q4H PRN PRN Reason: GI Upset Stop: 11/18/23 17:01 Bismuth Subsalicylate (Bismuth Subsalicylate Liqd 236 Ml) 15 ml PO PRN PRN PRN Reason: Loose Stool Stop: 11/18/23 17:01 Hydroxyzine HCl (Hydroxyzine Hcl 25 Mg Tab) 50 mg PO HSZ PRN PRN Reason: Insomnia Stop: 11/18/23 17:01 Hydroxyzine HCl (Hydroxyzine Hcl 25 Mg Tab) 25 mg PO Q4H PRN PRN Reason: Anxiety Stop: 11/18/23 17:01 Magnesium Hydroxide (Magnesium Hydroxide Susp 30 Ml Udc) 30 ml PO DAILY PRN PRN Reason: Constipation Stop: 11/18/23 17:01 Naltrexone HCl (Naltrexone Hcl 50 Mg Tab) 25 mg PO DAILYBD ANDRE Stop: 11/19/23 17:14 Last Admin: 10/20/23 17:29 Dose: 25 mg Paliperidone (Paliperidone 1.5 Mg Tabcr) 1.5 mg PO BIDM ANDRE Stop: 11/19/23 10:39 Last Admin: 10/21/23 08:42 Dose: 1.5 mg Risperidone (Risperidone 0.5 Mg Tablet) 0.5 mg PO BID PRN PRN Reason: Anxiety/Agitation Stop: 11/19/23 11:33 Sodium Chloride (Sodium Chloride 0.65% Na Soln 45 Ml ([place])) 1 - 2 sprays NA PRN PRN PRN Reason: Nasal Dryness/Congestion Stop: 11/18/23 17:01 Venlafaxine HCl (Venlafaxine Hcl Xr 75 Mg Capxr) 75 mg PO QAM ANDRE Stop: 11/19/23 10:44 Last Admin: 10/21/23 08:42 Dose: 75 mg Mental Health & Subst Abuse Tx Therapist Name of Therapist: Psychologist Resident at [facility] Pick Up Driver Name of Pick Up Driver: None Post Discharge Appointments Primary Care Physician Name Of Family Doctor/PCP: Dr. Glynn Amaya
[2023-10-21 10:23] LABS: Estimated Average Glucose 111 mg/dl; Hemoglobin A1C 5.5 % (4.5-5.6)
--- NOTE | 2023-10-22 09:01 | Psychiatric Progress Note ---
Date of Service October 22, 2023 Impression / Recommendations Impression OMNICA ERWIN is a 53-year-old woman who currently lives in [place] alone, has a history of MDD with psychotic features, eating disorder restricting and binge purge type, psychogenic polydipsia, and BPAD, and was admitted on 10/19/23 17:20 on a 201 voluntary commitment for worsening depression with SI and psychosis. Diagnostically consistent with unspecified mood disorder with differential including BPAD current depressive episode with psychosis vs primary psychotic disorder vs MDD with psychotic features vs substance-induced/withdrawal symptoms from recent cannabis use and eating disorder binge purge pattern. A: Continues to present as significantly depressed, ongoing eating disorder symptoms including strong urges to binge and purge, open to referrals for eating disorder residential treatment as suspect eating disorder is playing a significant role in depression. Will titrate naltrexone further to get to effective dose. Consider further Invega titration in coming days as tolerated. MNPR due to paranoia Overall, I spent a total of 30 minutes on this case including meeting with the patient, reviewing the chart, nursing report, multidisciplinary team meeting, orders, and documentation. (1) Psychosis with severe depression due to bipolar affective disorder: (2) Binge eating disorder: (3) Depression with suicidal ideation: Plan 10/22/2023: Increase naltexone to 50mg qdinner. 10/21/2023: Continue current medications and tx plan. 10/20/2023: The patient was admitted to the [facility] ([facility] unit) on q15 min checks (behavioral with suicide precautions) for safety. The patient will participate in group, recreational, and milieu therapies and will be offered additional individual and family sessions as clinically appropriate. 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 but still depressed but feels safe in the hospital and able to ask for support ) Risk Factors Assessment Male: No : Yes Do You Have Access To A Gun?: No Health Problems: No Mental Health Diagnoses: Yes Substance Use Disorders: No Previous Attempt: No Family History of Suicide: No Previous Psychiatric Hospitalization: Yes Hopelessness: Yes Protective Factors Assessment Employed: Yes Stable Relationships: Yes Supportive Family: Yes Interval History Identifying Information MONICA ERWIN is a 53-year-old woman who currently lives in [place] alone, has a history of MDD with psychotic features, eating disorder restricting and binge purge type, psychogenic polydipsia, and BPAD, and was admitted on 10/19/23 17:20 on a 201 voluntary commitment for worsening depression with SI and psychosis. Chief Complaint "Ok". Review of Systems Sleep Information Total Hours of Sleep: 6.30 Sleep Comments: HS medications Meal Information Percent Meal Consumed - Breakfast: 100 Percent Meal Consumed - Lunch: 100 Percent Meal Consumed - Dinner: 80 Subjective Subjective Patient was seen & assessed and interval progress reviewed with treatment team nursing and social work. Had visit with her brother last evening. Feels the medications are helping. Did not attend community meeting last evening. Today lying in bed, staring at the bedside table. Reports her mood is "ok". Denies SI but presents as significantly depressed. Reports ongoing ruminations and continues to have urges to binge and purge. Willing to consider residential eating disorder treatment, open to referrals. Agrees to increasing naltrexone to target binge/purge urges. Physical Exam Psychiatric Orientation: alert and oriented x 3 Apperance: appropriately dressed and appropriately groomed Eye Contact: + poor eye contact Motor Behavior: no abnormal motor movements Speech: normal rate/rhythm/volume of speech Affect: + depressed affect and + flat affect Mood: + depressed mood Thought Process: + concrete thought process Thought Content: + preoccupation, + obsessions and + paranoid Suicidal Thoughts: denies suicidal thoughts, denies suicidal plan and denies suicidal intent Homicidal Thoughts: denies homicidal thoughts Hallucinations: no auditory hallucinations and no visual hallucinations Cognition: recent memory grossly intact, remote memory grossly intact, attention grossly intact and language grossly intact Estimated Intelligence: consistent with education level Insight: + limited insight Judgment: + limited judgement Vital Signs (Past 24 Hours) Last Vital Signs Temp 36.6 C 10/22/23 06:34 Pulse 99 H 10/22/23 06:35 Resp 16 10/22/23 06:34 BP 126/88 10/22/23 06:35 Pulse Ox 98 10/21/23 06:54 O2 Del Method Room Air 10/21/23 06:54 Results & Data ([facility]) Laboratory Results Laboratory Results - last 24 hr 10/21/23 07:51 Estimat Average Glucose 111 Hemoglobin A1c 5.5 Current Inpatient Medications Current Inpatient Medications: Current Inpatient Medications Acetaminophen (Acetaminophen 325 Mg Tab) 650 mg PO Q4H PRN PRN Reason: Headache or Minor Fever Stop: 11/18/23 17:01 Al Hydrox/Mg Hydrox/Simethicone (Aluminum/Magnesium Susp 30 Ml Udc) 30 ml PO Q4H PRN PRN Reason: GI Upset Stop: 11/18/23 17:01 Bismuth Subsalicylate (Bismuth Subsalicylate Liqd 236 Ml) 15 ml PO PRN PRN PRN Reason: Loose Stool Stop: 11/18/23 17:01 Hydroxyzine HCl (Hydroxyzine Hcl 25 Mg Tab) 50 mg PO HSZ PRN PRN Reason: Insomnia Stop: 11/18/23 17:01 Hydroxyzine HCl (Hydroxyzine Hcl 25 Mg Tab) 25 mg PO Q4H PRN PRN Reason: Anxiety Stop: 11/18/23 17:01 Magnesium Hydroxide (Magnesium Hydroxide Susp 30 Ml Udc) 30 ml PO DAILY PRN PRN Reason: Constipation Stop: 11/18/23 17:01 Naltrexone HCl (Naltrexone Hcl 50 Mg Tab) 25 mg PO DAILYBD ANDRE Stop: 11/19/23 17:14 Last Admin: 10/21/23 17:28 Dose: 25 mg Paliperidone (Paliperidone 1.5 Mg Tabcr) 1.5 mg PO BIDM ANDRE Stop: 11/19/23 10:39 Last Admin: 10/21/23 17:28 Dose: 1.5 mg Risperidone (Risperidone 0.5 Mg Tablet) 0.5 mg PO BID PRN PRN Reason: Anxiety/Agitation Stop: 11/19/23 11:33 Sodium Chloride (Sodium Chloride 0.65% Na Soln 45 Ml ([place])) 1 - 2 sprays NA PRN PRN PRN Reason: Nasal Dryness/Congestion Stop: 11/18/23 17:01 Venlafaxine HCl (Venlafaxine Hcl Xr 75 Mg Capxr) 75 mg PO QAM ANDRE Stop: 11/19/23 10:44 Last Admin: 10/21/23 08:42 Dose: 75 mg Mental Health & Subst Abuse Tx Therapist Name of Therapist: Psychologist Resident at [facility] Cocoa Roaster Name of Cocoa Roaster: None Post Discharge Appointments Primary Care Physician Name Of Family Doctor/PCP: Dr. Glynn Amaya
[2023-10-22] MEDS: NALTREXONE HCL 50 MG TAB PO SCH (17:41)
[2023-10-23] MEDS: MAGNESIUM OXIDE 400 MG TAB PO SCH (13:16)
[2023-10-23] MEDS: CHOLECALCIFEROL 125 MCG (5,000 UNITS) TAB PO SCH (13:17)
[2023-10-23] MEDS: MULTIVITAMIN CHEWABLE TAB PO SCH (13:17)
[2023-10-23] MEDS: DOCUSATE SODIUM 100 MG CAP PO SCH (13:17)
--- NOTE | 2023-10-23 13:23 | Psychiatric Progress Note ---
Date of Service October 23, 2023 Impression / Recommendations Impression MONICA ERWIN is a 53-year-old woman who currently lives in [place] alone, has a history of MDD with psychotic features, eating disorder restricting and binge purge type, psychogenic polydipsia, and BPAD, and was admitted on 10/19/23 17:20 on a 201 voluntary commitment for worsening depression with SI and psychosis. A: The patient presents in an objectively depressed state with blunted affect and limited reactivity and limited spontaneous speech. There is concern for fragmented sleep and continued anxiety and thoughts of self judgment. Concern for mood congruent delusions. She presents poor insight evidenced by fixation on returning to work prior to stabilization of her depression and psychosis. Labs reviewed: Sodium from October 18 is 135 and within expected limits. Discussed possibility of long-acting injection prior to discharge. Plan to optimize antipsychotic dose and schedule sleep medication. Redraw sodium level tomorrow. MNPR due to paranoia, psychosis Overall, I spent a total of 35 minutes on this case including meeting with the patient, reviewing the chart, nursing report, multidisciplinary team meeting, orders, and documentation. (1) Psychosis with severe depression due to bipolar affective disorder: (2) Binge eating disorder: (3) Depression with suicidal ideation: Plan 10/23/2023: Start lorazepam 1.5 mg at bedtime. Increase paliperidone to 3 mg twice daily. Sodium level to be checked tomorrow morning. Start vitamin D, multivitamin, magnesium supplement. 10/22/2023: Increase naltexone to 50mg qdinner. 10/21/2023: Continue current medications and tx plan. 10/20/2023: The patient was admitted to the [facility] ([facility] health unit) on q15 min checks (behavioral with suicide precautions) for safety. The patient will participate in group, recreational, and milieu therapies and will be offered additional individual and family sessions as clinically appropriate. 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 but still depressed but feels safe in the hospital and able to ask for support ) Risk Factors Assessment Male: No : Yes Do You Have Access To A Gun?: No Health Problems: No Mental Health Diagnoses: Yes Substance Use Disorders: No Previous Attempt: No Family History of Suicide: No Previous Psychiatric Hospitalization: Yes Hopelessness: Yes Protective Factors Assessment Employed: Yes Stable Relationships: Yes Supportive Family: Yes Interval History Identifying Information MONICA ERWIN is a 53-year-old woman who currently lives in [place] alone, has a history of MDD with psychotic features, eating disorder restricting and binge purge type, psychogenic polydipsia, and BPAD, and was admitted on 10/19/23 17:20 on a 201 voluntary commitment for worsening depression with SI and psychosis. Chief Complaint "Off meds" Review of Systems Sleep Information Total Hours of Sleep: 7.75 Sleep Comments: HS medications Meal Information Percent Meal Consumed - Breakfast: 100 Percent Meal Consumed - Lunch: 90 Percent Meal Consumed - Dinner: 100 Subjective Subjective Patient was seen & assessed and interval progress reviewed with treatment team nursing and social work Patient reports she felt the medications were not working so she decided to stop them. Around the same time she smoked marijuana with a friend. Reports after stopping the medications she felt "disorganized" and was "binging". She denies any associated paranoia. Throughout the interview the patient has limited spontaneous speech and is often answering questions with short responses. She complains of recent voices with no specific detail and cutting behavior weeks ago. Reports sleeping better however not feeling rested. Reports often waking up throughout the night. Through the interview the patient has a blunted affect with limited expression. She reports wanting to go back to work because she is worried about losing her job. He says that her friend can only take care of her dogs for so long. Reports having a disease case manager rn and they worked on a plan to get disability for her. She never completed the application. She reports feeling "depressed" and wants help with that. Physical Exam Mental Examination Appearance: Disheveled Eye Contact: Direct Eye Contact Motor Behavior: Slowed Speech: Poverty of Speech Mood: Depressed Affect: Blunted (minimal reactivity) Thought Process: Intact and [place] Thought Content: Poverty of Content Hallucinations: Auditory Insight: Poor Judgement: Poor Vital Signs (Past 24 Hours) Last Vital Signs Temp 36.3 C L 10/23/23 06:29 Pulse 99 H 10/23/23 06:29 Resp 16 10/23/23 06:29 BP 118/82 10/23/23 06:29 Pulse Ox 98 10/21/23 06:54 O2 Del Method Room Air 10/21/23 06:54 Results & Data ([facility]) Current Inpatient Medications Current Inpatient Medications: Current Inpatient Medications Acetaminophen (Acetaminophen 325 Mg Tab) 650 mg PO Q4H PRN PRN Reason: Headache or Minor Fever Stop: 11/18/23 17:01 Al Hydrox/Mg Hydrox/Simethicone (Aluminum/Magnesium Susp 30 Ml Udc) 30 ml PO Q4H PRN PRN Reason: GI Upset Stop: 11/18/23 17:01 Bismuth Subsalicylate (Bismuth Subsalicylate Liqd 236 Ml) 15 ml PO PRN PRN PRN Reason: Loose Stool Stop: 11/18/23 17:01 Docusate Sodium (Docusate Sodium 100 Mg Cap) 100 mg PO BID ANDRE Stop: 11/22/23 12:44 Hydroxyzine HCl (Hydroxyzine Hcl 25 Mg Tab) 50 mg PO HSZ PRN PRN Reason: Insomnia Stop: 11/18/23 17:01 Hydroxyzine HCl (Hydroxyzine Hcl 25 Mg Tab) 25 mg PO Q4H PRN PRN Reason: Anxiety Stop: 11/18/23 17:01 Lorazepam (Lorazepam 0.5 Mg Tab) 1.5 mg PO HS ANDRE Stop: 11/22/23 21:59 Magnesium Hydroxide (Magnesium Hydroxide Susp 30 Ml Udc) 30 ml PO DAILY PRN PRN Reason: Constipation Stop: 11/18/23 17:01 Magnesium Oxide (Magnesium Oxide 400 Mg Tab) 400 mg PO QAM ANDRE Stop: 11/22/23 12:44 Multivitamins/Folic Acid/Vitamin C (Multivitamin Chewable Tab) 1 tab PO QAM ANDRE Stop: 11/22/23 12:44 Naltrexone HCl (Naltrexone Hcl 50 Mg Tab) 50 mg PO DAILYBD ANDRE Stop: 11/21/23 17:14 Last Admin: 10/22/23 17:41 Dose: 50 mg Paliperidone (Paliperidone 3 Mg Tabcr) 3 mg PO BIDM ANDRE Stop: 11/22/23 17:44 Risperidone (Risperidone 0.5 Mg Tablet) 0.5 mg PO BID PRN PRN Reason: Anxiety/Agitation Stop: 11/19/23 11:33 Sodium Chloride (Sodium Chloride 0.65% Na Soln 45 Ml ([place])) 1 - 2 sprays NA PRN PRN PRN Reason: Nasal Dryness/Congestion Stop: 11/18/23 17:01 Venlafaxine HCl (Venlafaxine Hcl Xr 75 Mg Capxr) 75 mg PO QAM ANDRE Stop: 11/19/23 10:44 Last Admin: 10/23/23 08:49 Dose: 75 mg Vitamin D (Cholecalciferol 125 Mcg (5,000 Units) Tab) 125 mcg PO QAM ANDRE Stop: 11/22/23 12:44 Mental Health & Subst Abuse Tx Therapist Name of Therapist: Psychologist Resident at [facility] Technician Semiconductor Development Name of Technician Semiconductor Development: None Post Discharge Appointments Primary Care Physician Name Of Family Doctor/PCP: Dr. Glynn Amaya
[2023-10-23] MEDS: PALIPERIDONE 3 MG TABCR PO SCH (17:32)
[2023-10-23] MEDS: LORazepam 1 MG TAB PO SCH (21:04)
[2023-10-23] MEDS ORDERED: LORazepam 0.5 MG TAB PO SCH (22:00)
--- NOTE | 2023-10-24 13:49 | Psychiatric Progress Note ---
Date of Service October 24, 2023 Impression / Recommendations Impression MONICA ERWIN is a 53-year-old woman who currently lives in [place] alone, has a history of MDD with psychotic features, eating disorder restricting and binge purge type, psychogenic polydipsia, and BPAD, and was admitted on 10/19/23 17:20 on a 201 voluntary commitment for worsening depression with SI and psychosis. A: Today patient appears more expressive and has more spontaneous speech. She presents very poor insight into her depression and is hyperfocused on returning to work. She was counseled on her concerns about depression and psychosis and preventing recurrent hospitalizations. Discussed long-acting injection and ECT options to ensure medication adherence. Collateral from brother indicates recent worsening depression and associated persecutory delusions. Sodium level resulted at 134 and within expected limit. MNPR due to paranoia, psychosis Overall, I spent a total of 75 minutes on this case including meeting with the patient, reviewing the chart, nursing report, multidisciplinary team meeting, orders, gathering collateral and documentation. (1) Psychosis with severe depression due to bipolar affective disorder: (2) Binge eating disorder: (3) Depression with suicidal ideation: Plan 10/24/2023: Continue medications and treatment plan. 10/23/2023: Start lorazepam 1.5 mg at bedtime. Increase paliperidone to 3 mg tw ice daily. Sodium level to be checked tomorrow morning. Start vitamin D, multivitamin, magnesium supplement. 10/22/2023: Increase naltexone to 50mg qdinner. 10/21/2023: Continue current medications and tx plan. 10/20/2023: The patient was admitted to the [facility] ([facility] mental health unit) on q15 min checks (behavioral with suicide precautions) for safety. The patient will participate in group, recreational, and milieu therapies and will be offered additional individual and family sessions as clinically appropriate. 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 but still depressed but feels safe in the hospital and able to ask for support ) Risk Factors Assessment Male: No : Yes Do You Have Access To A Gun?: No Health Problems: No Mental Health Diagnoses: Yes Substance Use Disorders: No Previous Attempt: No Family History of Suicide: No Previous Psychiatric Hospitalization: Yes Hopelessness: Yes Protective Factors Assessment Employed: Yes Stable Relationships: Yes Supportive Family: Yes Interval History Identifying Information MONICA ERWIN is a 53-year-old woman who currently lives in [place] alone, has a history of MDD with psychotic features, eating disorder restricting and binge purge type, psychogenic polydipsia, and BPAD, and was admitted on 10/19/23 17:20 on a 201 voluntary commitment for worsening depression with SI and psychosis. Chief Complaint "Need to get back to work" Review of Systems Sleep Information Total Hours of Sleep: 8.25 Sleep Comments: HS medications Meal Information Percent Meal Consumed - Breakfast: 100 Percent Meal Consumed - Lunch: 100 Percent Meal Consumed - Dinner: 100 Subjective Subjective Patient was seen & assessed and interval progress reviewed with treatment team nursing and social work Patient was seen this morning brushing her teeth. Reports having a better night. But then recants saying she had trouble sleeping. Endorses a good appetite. When reflecting on her visit with her brother says that her brother is worried she will stop medications. We discussed ECT and she was counseled on what it pertains. She reports worries about losing her job. She denies suicidal ideation or feelings of being paranoid. She reports looking forward to seeing her dogs. Through the interview she appears distracted and has difficulty sitting still. Spoke to patient's brother Abdulaziz with pt permission (30 min): Patient had told brother and that she was taking medications until the days prior to hospitalization. Brother feels patient stopped medications 6 weeks ago after smoking marijuana. Since then he has noticed she has an increase in anxious ruminations which have been getting gradually worse. He has noticed increased suicidal ideation and isolation. 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 She was offered a long-acting injection at [place] but she refused at the time. Physical Exam Mental Examination Appearance: Disheveled Eye Contact: Direct Eye Contact Motor Behavior: Slowed Speech: Poverty of Speech Mood: Depressed Affect: Blunted (minimal reactivity) Thought Process: Intact and [place] Thought Content: Poverty of Content Hallucinations: Auditory Insight: Poor Judgement: Poor Vital Signs (Past 24 Hours) Last Vital Signs Temp 36.5 C 10/24/23 06:35 Pulse 112 H 10/24/23 09:25 Resp 16 10/24/23 06:35 BP 113/81 10/24/23 09:25 Pulse Ox 98 10/21/23 06:54 O2 Del Method Room Air 10/21/23 06:54 Results & Data ([facility]) Laboratory Results Laboratory Results - last 24 hr 10/24/23 08:32 Sodium 134 L Current Inpatient Medications Current Inpatient Medications: Current Inpatient Medications Acetaminophen (Acetaminophen 325 Mg Tab) 650 mg PO Q4H PRN PRN Reason: Headache or Minor Fever Stop: 11/18/23 17:01 Al Hydrox/Mg Hydrox/Simethicone (Aluminum/Magnesium Susp 30 Ml Udc) 30 ml PO Q4H PRN PRN Reason: GI Upset Stop: 11/18/23 17:01 Bismuth Subsalicylate (Bismuth Subsalicylate Liqd 236 Ml) 15 ml PO PRN PRN PRN Reason: Loose Stool Stop: 11/18/23 17:01 Docusate Sodium (Docusate Sodium 100 Mg Cap) 100 mg PO BID ANDRE Stop: 11/22/23 12:44 Last Admin: 10/24/23 09:09 Dose: 100 mg Hydroxyzine HCl (Hydroxyzine Hcl 25 Mg Tab) 50 mg PO HSZ PRN PRN Reason: Insomnia Stop: 11/18/23 17:01 Hydroxyzine HCl (Hydroxyzine Hcl 25 Mg Tab) 25 mg PO Q4H PRN PRN Reason: Anxiety Stop: 11/18/23 17:01 Lorazepam (Lorazepam 1 Mg Tab) 1.5 mg PO HS ANDRE Stop: 11/22/23 21:59 Last Admin: 10/23/23 21:04 Dose: 1.5 mg Magnesium Hydroxide (Magnesium Hydroxide Susp 30 Ml Udc) 30 ml PO DAILY PRN PRN Reason: Constipation Stop: 11/18/23 17:01 Magnesium Oxide (Magnesium Oxide 400 Mg Tab) 400 mg PO QAM ANDRE Stop: 11/22/23 12:44 Last Admin: 10/24/23 09:09 Dose: 400 mg Multivitamins/Folic Acid/Vitamin C (Multivitamin Chewable Tab) 1 tab PO QAM ANDRE Stop: 11/22/23 12:44 Last Admin: 10/24/23 09:09 Dose: 1 tab Naltrexone HCl (Naltrexone Hcl 50 Mg Tab) 50 mg PO DAILYBD ANDRE Stop: 11/21/23 17:14 Last Admin: 10/23/23 17:32 Dose: 50 mg Paliperidone (Paliperidone 3 Mg Tabcr) 3 mg PO BIDM ANDRE Stop: 11/22/23 17:44 Last Admin: 10/24/23 09:09 Dose: 3 mg Risperidone (Risperidone 0.5 Mg Tablet) 0.5 mg PO BID PRN PRN Reason: Anxiety/Agitation Stop: 11/19/23 11:33 Sodium Chloride (Sodium Chloride 0.65% Na Soln 45 Ml ([place])) 1 - 2 sprays NA PRN PRN PRN Reason: Nasal Dryness/Congestion Stop: 11/18/23 17:01 Venlafaxine HCl (Venlafaxine Hcl Xr 75 Mg Capxr) 75 mg PO QAM ANDRE Stop: 11/19/23 10:44 Last Admin: 10/24/23 09:09 Dose: 75 mg Vitamin D (Cholecalciferol 125 Mcg (5,000 Units) Tab) 125 mcg PO QAM ANDRE Stop: 11/22/23 12:44 Last Admin: 10/24/23 09:09 Dose: 125 mcg Mental Health & Subst Abuse Tx Therapist Name of Therapist: Psychologist Resident at [facility] Hat Forming Machine Feeder Name of Hat Forming Machine Feeder: None Post Discharge Appointments Primary Care Physician Name Of Family Doctor/PCP: Dr. Glynn Amaya
--- NOTE | 2023-10-25 15:03 | Electrocardiogram Report ---
Test Reason : Blood Pressure : */* mmHG Vent. Rate : 87 BPM Atrial Rate : 87 BPM P-R Int : 166 ms QRS Dur : 76 ms QT Int : 366 ms P-R-T Axes : 60 61 41 degrees QTcB Int : 440 ms Normal sinus rhythm Normal ECG When compared with ECG of 27-Jul-2023 01:53, AL interval has decreased Vent. rate has increased by 36 bpm Confirmed by Evangelist Murdock ([id number]) on 10/25/2023 3:03:09 PM Referred By: REFERRED SELF Confirmed By: Evangelist Murdock
--- NOTE | 2023-10-25 16:32 | Psychiatric Progress Note ---
Date of Service October 25, 2023 Impression / Recommendations Impression MONICA ERWIN is a 53-year-old woman who currently lives in [place] alone, has a history of MDD with psychotic features, eating disorder restricting and binge purge type, psychogenic polydipsia, and BPAD, and was admitted on 10/19/23 17:20 on a 201 voluntary commitment for worsening depression with SI and psychosis. A: Sleep improved however patient has mild daytime sedation; will decrease nightly Ativan. She continues to be in a depressed state with limited reactivity and expression. We reflected on changes in mood state after medication nonadherence and patient reported worsening depression symptoms; patient was encouraged to stay adherent to medications to control depression. Repeat EKG given acute rise in heart rate and within expected limits. MNPR due to paranoia, psychosis Overall, I spent a total of 35 minutes on this case including meeting with the patient, reviewing the chart, nursing report, multidisciplinary team meeting, orders, and documentation. (1) Psychosis with severe depression due to bipolar affective disorder: (2) Binge eating disorder: (3) Depression with suicidal ideation: Plan 10/25/2023: Decrease lorazepam to 1 mg at bedtime. Repeat EKG. 10/24/2023: Continue medications and treatment plan. 10/23/2023: Start lorazepam 1.5 mg at bedtime. Increase paliperidone to 3 mg twice daily. Sodium level to be checked tomorrow morning. Start vitamin D, multivitamin, magnesium supplement. 10/22/2023: Increase naltexone to 50mg qdinner. 10/21/2023: Continue current medications and tx plan. 10/20/2023: The patient was admitted to the [facility] ([facility]) on q15 min checks (behavioral with suicide precautions) for safety. The patient will participate in group, recreational, and milieu therapies and will be offered additional individual and family sessions as clinically appropriate. 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 but still depressed but feels safe in the hospital and able to ask for support ) Risk Factors Assessment Male: No : Yes Do You Have Access To A Gun?: No Health Problems: No Mental Health Diagnoses: Yes Substance Use Disorders: No Previous Attempt: No Family History of Suicide: No Previous Psychiatric Hospitalization: Yes Hopelessness: Yes Protective Factors Assessment Employed: Yes Stable Relationships: Yes Supportive Family: Yes Interval History Identifying Information MONICA ERWIN is a 53-year-old woman who currently lives in [place] alone, has a history of MDD with psychotic features, eating disorder restricting and binge purge type, psychogenic polydipsia, and BPAD, and was admitted on 10/19/23 17:20 on a 201 voluntary commitment for worsening depression with SI and psychosis. Chief Complaint "Terrible" Review of Systems Sleep Information Total Hours of Sleep: 8.5 Sleep Comments: HS medications Meal Information Percent Meal Consumed - Breakfast: 100 Percent Meal Consumed - Lunch: 100 Percent Meal Consumed - Dinner: 100 Subjective Subjective Patient was seen & assessed and interval progress reviewed with treatment team nursing and social work Patient slept 8.5 hours. She reports being worried about her job. Says her heart rate has increased with Effexor. Reports fair appetite and no excess fluid intake. She presents limited spontaneous speech and often answers with 1 or 2 word answers. I ask her what she has noticed when she stopped taking her antidepressant and reports having a disorganized environment, "schizophrenic behaviors", isolation, difficulties with concentration, memory impairments, decreased motivation. We reflect on how she did not reach out to her director case management for assistance and was encouraged to do so. Physical Exam Mental Examination Appearance: Disheveled Eye Contact: Direct Eye Contact Motor Behavior: Slowed Speech: Poverty of Speech Mood: Depressed Affect: Blunted (minimal reactivity) Thought Process: Intact and [place] Thought Content: Poverty of Content Hallucinations: Auditory Insight: Poor Judgement: Poor Vital Signs (Past 24 Hours) Last Vital Signs Temp 36.6 C 10/25/23 06:28 Pulse 100 H 10/25/23 10:35 Resp 16 10/25/23 06:28 BP 126/88 10/25/23 06:29 Pulse Ox 98 10/21/23 06:54 O2 Del Method Room Air 10/21/23 06:54 Results & Data ([facility]) Current Inpatient Medications Current Inpatient Medications: Current Inpatient Medications Acetaminophen (Acetaminophen 325 Mg Tab) 650 mg PO Q4H PRN PRN Reason: Headache or Minor Fever Stop: 11/18/23 17:01 Al Hydrox/Mg Hydrox/Simethicone (Aluminum/Magnesium Susp 30 Ml Udc) 30 ml PO Q4H PRN PRN Reason: GI Upset Stop: 11/18/23 17:01 Bismuth Subsalicylate (Bismuth Subsalicylate Liqd 236 Ml) 15 ml PO PRN PRN PRN Reason: Loose Stool Stop: 11/18/23 17:01 Docusate Sodium (Docusate Sodium 100 Mg Cap) 100 mg PO BID ANDRE Stop: 11/22/23 12:44 Last Admin: 10/25/23 09:15 Dose: 100 mg Hydroxyzine HCl (Hydroxyzine Hcl 25 Mg Tab) 50 mg PO HSZ PRN PRN Reason: Insomnia Stop: 11/18/23 17:01 Hydroxyzine HCl (Hydroxyzine Hcl 25 Mg Tab) 25 mg PO Q4H PRN PRN Reason: Anxiety Stop: 11/18/23 17:01 Lorazepam (Lorazepam 1 Mg Tab) 1 mg PO HS ANDRE Stop: 11/24/23 21:59 Magnesium Hydroxide (Magnesium Hydroxide Susp 30 Ml Udc) 30 ml PO DAILY PRN PRN Reason: Constipation Stop: 11/18/23 17:01 Magnesium Oxide (Magnesium Oxide 400 Mg Tab) 400 mg PO QAM ANDRE Stop: 11/22/23 12:44 Last Admin: 10/25/23 09:15 Dose: 400 mg Multivitamins/Folic Acid/Vitamin C (Multivitamin Chewable Tab) 1 tab PO QAM ANDRE Stop: 11/22/23 12:44 Last Admin: 10/25/23 09:16 Dose: 1 tab Naltrexone HCl (Naltrexone Hcl 50 Mg Tab) 50 mg PO DAILYBD ANDRE Stop: 11/21/23 17:14 Last Admin: 10/24/23 17:49 Dose: 50 mg Paliperidone (Paliperidone 3 Mg Tabcr) 3 mg PO BIDM ANDRE Stop: 11/22/23 17:44 Last Admin: 10/25/23 09:15 Dose: 3 mg Risperidone (Risperidone 0.5 Mg Tablet) 0.5 mg PO BID PRN PRN Reason: Anxiety/Agitation Stop: 11/19/23 11:33 Sodium Chloride (Sodium Chloride 0.65% Na Soln 45 Ml ([place])) 1 - 2 sprays NA PRN PRN PRN Reason: Nasal Dryness/Congestion Stop: 11/18/23 17:01 Venlafaxine HCl (Venlafaxine Hcl Xr 75 Mg Capxr) 75 mg PO QAM ANDRE Stop: 11/19/23 10:44 Last Admin: 10/25/23 09:16 Dose: 75 mg Vitamin D (Cholecalciferol 125 Mcg (5,000 Units) Tab) 125 mcg PO QAM ANDRE Stop: 11/22/23 12:44 Last Admin: 10/25/23 09:15 Dose: 125 mcg Mental Health & Subst Abuse Tx Psychiatrist Name of Psychiatrist: Dwight Lee @ [facility] Date Of Appointment With Psychiatric Provider: 11/01/23Wednesday Time of Appointment with Psychiatrist: 11:15 Therapist Name of Therapist: Psychologist Resident at [facility] Therapist's Languages And Literature Instructor Name of Languages And Literature Instructor: Heaven Phone Number for Languages And Literature Instructor: [phone] Date of Appointment with Languages And Literature Instructor: 10/29/23 Time of Appointment with Languages And Literature Instructor: 9:00AM Wednesday Case Management Appointment Comment: Meet at [facility] Discharge Appointments Primary Care Physician Name Of Family Doctor/PCP: Dr. Glynn Amaya Specialist Name of Specialist: Stockroom Clerk
[2023-10-25] MEDS: LORazepam 1 MG TAB PO SCH (21:08)
--- NOTE | 2023-10-26 13:19 | Psychiatric Progress Note ---
Date of Service October 26, 2023 Impression / Recommendations Impression MONICA ERWIN is a 53-year-old woman who currently lives in [place] alone, has a history of MDD with psychotic features, eating disorder restricting and binge purge type, psychogenic polydipsia, and BPAD, and was admitted on 10/19/23 17:20 on a 201 voluntary commitment for worsening depression with SI and psychosis. A: Patient is sleeping well. Presents slow improvement of depression symptoms. Continues to have deficits with concentration, motivation, expressivity, spontaneous speech. Presents poor insight regarding her condition and is hyperfocused on returning to work. Gather collateral from brother today and encouraged him to reassure patient about treatment plan. EKG reviewed showing stable HR and NSR. MNPR due to paranoia, psychosis Overall, I spent a total of 45 minutes on this case including meeting with the patient, reviewing the chart, nursing report, multidisciplinary team meeting, orders, and documentation. (1) MDD (major depressive disorder), recurrent, severe, with psychosis: (2) Binge eating disorder: Plan 10/26/2023: Continue medications and treatment plan. 10/25/2023: Decrease lorazepam to 1 mg at bedtime. Repeat EKG. 10/24/2023: Continue medications and treatment plan. 10/23/2023: Start lorazepam 1.5 mg at bedtime. Increase paliperidone to 3 mg twice daily. Sodium level to be checked tomorrow morning. Start vitamin D, multivitamin, magnesium supplement. 10/22/2023: Increase naltexone to 50mg qdinner. 10/21/2023: Continue current medications and tx plan. 10/20/2023: The patient was admitted to the [facility] on q15 min checks (behavioral with suicide precautions) for safety. The patient will participate in group, recreational, and milieu therapies and will be of fered additional individual and family sessions as clinically appropriate. 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 but still depressed but feels safe in the hospital and able to ask for support ) Risk Factors Assessment Male: No : Yes Do You Have Access To A Gun?: No Health Problems: No Mental Health Diagnoses: Yes Substance Use Disorders: No Previous Attempt: No Family History of Suicide: No Previous Psychiatric Hospitalization: Yes Hopelessness: Yes Protective Factors Assessment Employed: Yes Stable Relationships: Yes Supportive Family: Yes Interval History Identifying Information MONICA ERWIN is a 53-year-old woman who currently lives in [place] alone, has a history of MDD with psychotic features, eating disorder restricting and binge purge type, psychogenic polydipsia, and BPAD, and was admitted on 10/19/23 17:20 on a 201 voluntary commitment for worsening depression with SI and psychosis. Chief Complaint "Need to get back to work" Review of Systems Sleep Information Total Hours of Sleep: 10 Sleep Comments: HS medications Meal Information Percent Meal Consumed - Breakfast: 75 Percent Meal Consumed - Lunch: 100 Percent Meal Consumed - Dinner: 100 Nutrition Comment: 175cc with meal Subjective Subjective Patient was seen & assessed and interval progress reviewed with treatment team nursing and social work Nursing reports patient slept 10 hours. On interview patient reports sleeping well. She reports constant worries about her job and being able to maintain finances. Reports if she does not return to work she will get fired and become homeless. Hyperfocused on this. I advised her about her concerns about her mental wellbeing and ongoing depression and she discounts these concerns. Updated about Case management intake next week. Reports okay energy and fair appetite. Reports difficulties with motivation for daily tasks and has concentration issues which are notable when she attempts to read and "spaces out". She presents a blunted affect with limited spontaneous speech. She denies suicidal ideation. RISHI ERWIN -Brother ([phone]) Not aware of pt employement potentially firing her and are accomodating. Since last visit, pt seemed more present and more expressiveness. Smiling briefly. Updated about care plan and concerns. Willing to talk to employer and confirm with pt that she is temporarily off her schedule and this is not permanent. Physical Exam Mental Examination Appearance: Disheveled Eye Contact: Direct Eye Contact Motor Behavior: Slowed Speech: Poverty of Speech Mood: Depressed Affect: Blunted (minimal reactivity) Thought Process: Intact and [place] Thought Content: Poverty of Content Hallucinations: None Insight: Poor Judgement: Poor Vital Signs (Past 24 Hours) Last Vital Signs Temp 36.7 C 10/26/23 06:39 Pulse 130 H 10/26/23 06:40 Resp 16 10/26/23 06:39 BP 132/97 10/26/23 06:40 Pulse Ox 98 10/21/23 06:54 O2 Del Method Room Air 10/21/23 06:54 Results & Data ([facility]) Current Inpatient Medications Current Inpatient Medications: Current Inpatient Medications Acetaminophen (Acetaminophen 325 Mg Tab) 650 mg PO Q4H PRN PRN Reason: Headache or Minor Fever Stop: 11/18/23 17:01 Al Hydrox/Mg Hydrox/Simethicone (Aluminum/Magnesium Susp 30 Ml Udc) 30 ml PO Q4H PRN PRN Reason: GI Upset Stop: 11/18/23 17:01 Bismuth Subsalicylate (Bismuth Subsalicylate Liqd 236 Ml) 15 ml PO PRN PRN PRN Reason: Loose Stool Stop: 11/18/23 17:01 Docusate Sodium (Docusate Sodium 100 Mg Cap) 100 mg PO BID ANDRE Stop: 11/22/23 12:44 Last Admin: 10/26/23 08:27 Dose: 100 mg Hydroxyzine HCl (Hydroxyzine Hcl 25 Mg Tab) 50 mg PO HSZ PRN PRN Reason: Insomnia Stop: 11/18/23 17:01 Hydroxyzine HCl (Hydroxyzine Hcl 25 Mg Tab) 25 mg PO Q4H PRN PRN Reason: Anxiety Stop: 11/18/23 17:01 Lorazepam (Lorazepam 1 Mg Tab) 1 mg PO HS ANDRE Stop: 11/24/23 21:59 Last Admin: 10/25/23 21:08 Dose: 1 mg Magnesium Hydroxide (Magnesium Hydroxide Susp 30 Ml Udc) 30 ml PO DAILY PRN PRN Reason: Constipation Stop: 11/18/23 17:01 Magnesium Oxide (Magnesium Oxide 400 Mg Tab) 400 mg PO QAM ANDRE Stop: 11/22/23 12:44 Last Admin: 10/26/23 08:27 Dose: 400 mg Multivitamins/Folic Acid/Vitamin C (Multivitamin Chewable Tab) 1 tab PO QAM ANDRE Stop: 11/22/23 12:44 Last Admin: 10/26/23 08:27 Dose: 1 tab Naltrexone HCl (Naltrexone Hcl 50 Mg Tab) 50 mg PO DAILYBD ANDRE Stop: 11/21/23 17:14 Last Admin: 10/25/23 17:51 Dose: 50 mg Paliperidone (Paliperidone 3 Mg Tabcr) 3 mg PO BIDM ANDRE Stop: 11/22/23 17:44 Last Admin: 10/26/23 08:27 Dose: 3 mg Risperidone (Risperidone 0.5 Mg Tablet) 0.5 mg PO BID PRN PRN Reason: Anxiety/Agitation Stop: 11/19/23 11:33 Sodium Chloride (Sodium Chloride 0.65% Na Soln 45 Ml ([place])) 1 - 2 sprays NA PRN PRN PRN Reason: Nasal Dryness/Congestion Stop: 11/18/23 17:01 Venlafaxine HCl (Venlafaxine Hcl Xr 75 Mg Capxr) 75 mg PO QAM ANDRE Stop: 11/19/23 10:44 Last Admin: 10/26/23 08:27 Dose: 75 mg Vitamin D (Cholecalciferol 125 Mcg (5,000 Units) Tab) 125 mcg PO QAM ANDRE Stop: 11/22/23 12:44 Last Admin: 10/26/23 08:27 Dose: 125 mcg Mental Health & Subst Abuse Tx Psychiatrist Name of Psychiatrist: Dwight Lee @ [facility] Date Of Appointment With Psychiatric Provider: 11/01/23Wednesday Time of Appointment with Psychiatrist: 11:15 Psychiatric Appointment Comment: Request NIELSEN Carl Sy as it was out of stock at the hospital pharmacy Therapist Name of Therapist: Psychologist Resident at [facility] Therapist's Cloth Bin Packer Name of Cloth Bin Packer: Heaven Phone Number for Cloth Bin Packer: [phone] Date of Appointment with Cloth Bin Packer: 11/01/23 Time of Appointment with Cloth Bin Packer: 10AM (Wednesday) Case Management Appointment Comment: Meet at [facility] Discharge Appointments Primary Care Physician Name Of Family Doctor/PCP: Dr. Glynn Amaya Specialist Name of Specialist: [place] Chief
[2023-10-26] MEDS: MAGNESIUM HYDROXIDE SUSP 30 ML UDC PO PRN (14:32)
[2023-10-27] MEDS: DOCUSATE SODIUM 100 MG CAP PO SCH ×2 (08:43→20:42)
[2023-10-27] MEDS: SENNA 8.6 MG TAB PO ONE (08:43)
--- NOTE | 2023-10-27 13:43 | Psychiatric Progress Note ---
Date of Service October 27, 2023 Impression / Recommendations Impression MONICA ERWIN is a 53-year-old woman who currently lives in [place] alone, has a history of MDD with psychotic features, eating disorder restricting and binge purge type, psychogenic polydipsia, and BPAD, and was admitted on 10/19/23 17:20 on a 201 voluntary commitment for worsening depression with SI and psychosis. A: Patient presents slight improvement in depression. She is less focused on retu rning to work quickly and is reassured about her return. Has been sleeping well and presents slight improvements in affect. Does not report any new delusional thoughts. She was counseled about the effects of severe depression and psychosis. Plan to optimize Effexor dose; will monitor HR; pt asymptomatic and recent EKG within expected limits. MNPR due to paranoia, psychosis Overall, I spent a total of 25 minutes on this case including meeting with the patient, reviewing the chart, nursing report, multidisciplinary team meeting, orders, and documentation. (1) MDD (major depressive disorder), recurrent, severe, with psychosis: (2) Binge eating disorder: Plan 10/27/2023: Increase Effexor XR to 150mg daily. 10/26/2023: Continue medications and treatment plan. 10/25/2023: Decrease lorazepam to 1 mg at bedtime. Repeat EKG. 10/24/2023: Continue medications and treatment plan. 10/23/2023: Start lorazepam 1.5 mg at bedtime. Increase paliperidone to 3 mg twice daily. Sodium level to be checked tomorrow morning. Start vitamin D, multivitamin, magnesium supplement. 10/22/2023: Increase naltexone to 50mg qdinner. 10/21/2023: Continue current medications and tx plan. 10/20/2023: The patient was admitted to the [facility] ([facility] inpatient mental health unit) on q15 min checks (behavioral with suicide precautions) for safety. The patient will participate in group, recreational, and milieu therapies and will be offered additional individual and family sessions as clinically appropriate. 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 but feels safe in the hospital and able to ask for support ) Risk Factors Assessment Male: No : Yes Do You Have Access To A Gun?: No Health Problems: No Mental Health Diagnoses: Yes Substance Use Disorders: No Previous Attempt: No Family History of Suicide: No Previous Psychiatric Hospitalization: Yes Hopelessness: Yes Protective Factors Assessment Employed: Yes Stable Relationships: Yes Supportive Family: Yes Interval History Identifying Information MONICA ERWIN is a 53-year-old woman who currently lives in [place] alone, has a history of MDD with psychotic features, eating disorder restricting and binge purge type, psychogenic polydipsia, and BPAD, and was admitted on 10/19/23 17:20 on a 201 voluntary commitment for worsening depression with SI and psychosis. Chief Complaint "Okay" Review of Systems Sleep Information Total Hours of Sleep: 8.25 Sleep Comments: HS medications Meal Information Percent Meal Consumed - Breakfast: 100 Percent Meal Consumed - Lunch: 100 Percent Meal Consumed - Dinner: 100 Nutrition Comment: 175cc with meal Subjective Subjective Patient was seen & assessed and interval progress reviewed with treatment team nursing and social work Nursing reports patient continues to believe that others put appetite stimulants in her water. Has been focused on returning to her job. Slept 8 hours. Requires less prompting for groups. No new delusions presented. On interview the patient presents limited spontaneous speech and presents a mostly constricted to blunted affect with limited reactivity. She reports talking to her brother and feels more ease about not losing her job. Reports sleeping well. 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 Prior to hospitalization she was not paying attention to details and this was identified by her boss. Reports an improvement in concentration and attention since then however still having some trouble. She denies having palpitations or racing heart throughout the day. She denies having fears about going home or that her coworkers will do anything to her. Feels safe at home and on the unit. She wants to get more of her motivation back. She denies suicidal ideation. Physical Exam Mental Examination Appearance: Disheveled Eye Contact: Direct Eye Contact Motor Behavior: Slowed Speech: Poverty of Speech Mood: Depressed Affect: Blunted (minimal reactivity) Thought Process: Intact and [place] Thought Content: Poverty of Content Hallucinations: None Insight: Poor Judgement: Poor Vital Signs (Past 24 Hours) Last Vital Signs Temp 36.7 C 10/27/23 06:34 Pulse 128 H 10/27/23 06:34 Resp 16 10/27/23 06:34 BP 126/89 10/27/23 06:34 Pulse Ox 98 10/21/23 06:54 O2 Del Method Room Air 10/21/23 06:54 Results & Data ([facility]) Current Inpatient Medications Current Inpatient Medications: Current Inpatient Medications Acetaminophen (Acetaminophen 325 Mg Tab) 650 mg PO Q4H PRN PRN Reason: Headache or Minor Fever Stop: 11/18/23 17:01 Al Hydrox/Mg Hydrox/Simethicone (Aluminum/Magnesium Susp 30 Ml Udc) 30 ml PO Q4H PRN PRN Reason: GI Upset Stop: 11/18/23 17:01 Bismuth Subsalicylate (Bismuth Subsalicylate Liqd 236 Ml) 15 ml PO PRN PRN PRN Reason: Loose Stool Stop: 11/18/23 17:01 Docusate Sodium (Docusate Sodium 100 Mg Cap) 200 mg PO BID ANDRE Stop: 11/26/23 20:59 Hydroxyzine HCl (Hydroxyzine Hcl 25 Mg Tab) 50 mg PO HSZ PRN PRN Reason: Insomnia Stop: 11/18/23 17:01 Hydroxyzine HCl (Hydroxyzine Hcl 25 Mg Tab) 25 mg PO Q4H PRN PRN Reason: Anxiety Stop: 11/18/23 17:01 Lorazepam (Lorazepam 1 Mg Tab) 1 mg PO HS ANDRE Stop: 11/24/23 21:59 Last Admin: 10/26/23 21:24 Dose: 1 mg Magnesium Hydroxide (Magnesium Hydroxide Susp 30 Ml Udc) 30 ml PO DAILY PRN PRN Reason: Constipation Stop: 11/18/23 17:01 Last Admin: 10/26/23 19:44 Dose: 30 ml Magnesium Oxide (Magnesium Oxide 400 Mg Tab) 400 mg PO QAM [facility] Stop: 11/22/23 12:44 Last Admin: 10/27/23 08:42 Dose: 400 mg Multivitamins/Folic Acid/Vitamin C (Multivitamin Chewable Tab) 1 tab PO QAM [facility] Stop: 11/22/23 12:44 Last Admin: 10/27/23 08:42 Dose: 1 tab Naltrexone HCl (Naltrexone Hcl 50 Mg Tab) 50 mg PO DAILYBD ANDRE Stop: 11/21/23 17:14 Last Admin: 10/26/23 17:34 Dose: 50 mg Paliperidone (Paliperidone 3 Mg Tabcr) 3 mg PO BIDM ANDRE Stop: 11/22/23 17:44 Last Admin: 10/27/23 08:43 Dose: 3 mg Risperidone (Risperidone 0.5 Mg Tablet) 0.5 mg PO BID PRN PRN Reason: Anxiety/Agitation Stop: 11/19/23 11:33 Sodium Chloride (Sodium Chloride 0.65% Na Soln 45 Ml ([place])) 1 - 2 sprays NA PRN PRN PRN Reason: Nasal Dryness/Congestion Stop: 11/18/23 17:01 Venlafaxine HCl (Venlafaxine Hcl Xr 150 Mg Capxr) 150 mg PO QAM ANDRE Stop: 11/27/23 08:59 Venlafaxine HCl (Venlafaxine Hcl Xr 75 Mg Capxr) 75 mg PO ONE ONE Stop: 10/27/23 13:36 Vitamin D (Cholecalciferol 125 Mcg (5,000 Units) Tab) 125 mcg PO QAM ANDRE Stop: 11/22/23 12:44 Last Admin: 10/27/23 08:42 Dose: 125 mcg Mental Health & Subst Abuse Tx Psychiatrist Name of Psychiatrist: Dwight Lee @ [place] [facility] Date Of Appointment With Psychiatric Provider: 11/01/23Wednesday Time of Appointment with Psychiatrist: 11:15 Psychiatric Appointment Comment: Request NIELSEN Carl Sy as it was out of stock at the hospital pharmacy Therapist Name of Therapist: Psychologist Resident at [facility] Psych Clinic Therapist's Date of Therapist Appointment: 11/02/23Wednesday Time of Therapist Appointment: 2pm Therapy Appointment Comment: in person Embedded Developer Name of Embedded Developer: Heaven Phone Number for Embedded Developer: [phone] Date of Appointment with Embedded Developer: 11/01/23 Time of Appointment with Embedded Developer: 1PM (Wednesday) Case Management Appointment Comment: Meet at [facility] Post Discharge Appointments Primary Care Physician Name Of Family Doctor/PCP: Dr. Glynn Amaya Specialist Name of Specialist: Deck Steward
[2023-10-27] MEDS: VENLAFAXINE HCL XR 75 MG CAPXR PO ONE (13:55)
[2023-10-27] MEDS: MAGNESIUM CITRATE 296 ML/BTL PO STA (17:18)
[2023-10-28] MEDS: VENLAFAXINE HCL XR 150 MG CAPXR PO SCH (09:01)
[2023-10-28] MEDS: POLYETHYLENE (MIRALAX) 17 GM PACK PO SCH (09:01)
--- NOTE | 2023-10-28 14:45 | Psychiatric Progress Note ---
Date of Service October 28, 2023 Impression / Recommendations Impression MONICA ERWIN is a 53-year-old woman who currently lives in [place] alone, has a history of MDD with psychotic features, eating disorder restricting and binge purge type, psychogenic polydipsia, and BPAD, and was admitted on 10/19/23 17:20 on a 201 voluntary commitment for worsening depression with SI and psychosis. A: Patient does not present evidence of psychosis including new persecutory delusi ons. Concern for excess constipation with antipsychotics and will slightly decrease Invega dose. We will consolidate Invega to a single daily dose. Plan to continue Colace on an outpatient basis given ongoing constipation concerns. MNPR due to paranoia, psychosis Overall, I spent a total of 30 minutes on this case including meeting with the patient, reviewing the chart, nursing report, multidisciplinary team meeting, orders, and documentation. (1) MDD (major depressive disorder), recurrent severe, without psychosis: (2) Binge eating disorder: Plan 10/28/2023: Starting tomorrow we will consolidate Invega to 4.5 mg at bedtime. Miralax daily scheduled. Continue other medications. 10/27/2023: Increase Effexor XR to 150mg daily. 10/26/2023: Continue medications and treatment plan. 10/25/2023: Decrease lorazepam to 1 mg at bedtime. Repeat EKG. 10/24/2023: Continue medications and treatment plan. 10/23/2023: Start lorazepam 1.5 mg at bedtime. Increase paliperidone to 3 mg twice daily. Sodium level to be checked tomorrow morning. Start vitamin D, multivitamin, magnesium supplement. 10/22/2023: Increase naltexone to 50mg qdinner. 10/21/2023: Continue current medications and tx plan. 10/20/2023: The patient was admitted to the [facility] ([facility] inpatient mental [facility] unit) on q15 min checks (behavioral with suicide precautions) for safety. The patient will participate in group, recreational, and milieu therapies and will be offered additional individual and family sessions as clinically appropriate. 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 but still depressed but feels safe in the hospital and able to ask for support ) Risk Factors Assessment Male: No : Yes Do You Have Access To A Gun?: No Health Problems: No Mental Health Diagnoses: Yes Substance Use Disorders: No Previous Attempt: No Family History of Suicide: No Previous Psychiatric Hospitalization: Yes Hopelessness: Yes Protective Factors Assessment Employed: Yes Stable Relationships: Yes Supportive Family: Yes Interval History Identifying Information MONICA ERWIN is a 53-year-old woman who currently lives in [place] alone, has a history of MDD with psychotic features, eating disorder restricting and binge purge type, psychogenic polydipsia, and BPAD, and was admitted on 10/19/23 17:20 on a 201 voluntary commitment for worsening depression with SI and psychosis. Chief Complaint "Okay" Review of Systems Sleep Information Total Hours of Sleep: 6.30 Sleep Comments: HS Ativan Meal Information Percent Meal Consumed - Breakfast: 100 Percent Meal Consumed - Lunch: 100 Percent Meal Consumed - Dinner: 100 Nutrition Comment: 175cc with meal Subjective Subjective Patient was seen & assessed and interval progress reviewed with treatment team nursing and social work Patient presents a blunted affect with limited spontaneous speech. She reports sleeping well overnight and continues to feel sleepy throughout the day. Denies any palpitations or changes in heart rate. Reports having a good bowel movement and denies further intervention. She wants to have improved concentration. She recognizes that it is hard for her to show expressiveness on her face and e xperience pleasure. She reports feeling safe in the hospital and has no concerns about going home. Says that she exercises regularly and this helps her. Denies any further concerns. She denies suicidal ideation. She was encouraged to utilize her resources including case management and family. Physical Exam Mental Examination Appearance: Disheveled Eye Contact: Direct Eye Contact Motor Behavior: Slowed Speech: Poverty of Speech Mood: Depressed Affect: Blunted (minimal reactivity) Thought Process: Intact and [place] Thought Content: Poverty of Content Hallucinations: None Insight: Poor (improved) Judgement: Poor (improved) Vital Signs (Past 24 Hours) Last Vital Signs Temp 36.5 C 10/28/23 06:39 Pulse 116 H 10/28/23 06:39 Resp 16 10/28/23 06:39 BP 134/93 10/28/23 06:39 Pulse Ox 98 10/21/23 06:54 O2 Del Method Room Air 10/21/23 06:54 Results & Data ([facility] [place]) Current Inpatient Medications Current Inpatient Medications: Current Inpatient Medications Acetaminophen (Acetaminophen 325 Mg Tab) 650 mg PO Q4H PRN PRN Reason: Headache or Minor Fever Stop: 11/18/23 17:01 Al Hydrox/Mg Hydrox/Simethicone (Aluminum/Magnesium Susp 30 Ml Udc) 30 ml PO Q4H PRN PRN Reason: GI Upset Stop: 11/18/23 17:01 Bismuth Subsalicylate (Bismuth Subsalicylate Liqd 236 Ml) 15 ml PO PRN PRN PRN Reason: Loose Stool Stop: 11/18/23 17:01 Docusate Sodium (Docusate Sodium 100 Mg Cap) 200 mg PO BID ANDRE Stop: 11/26/23 20:59 Last Admin: 10/28/23 09:01 Dose: 200 mg Hydroxyzine HCl (Hydroxyzine Hcl 25 Mg Tab) 50 mg PO HSZ PRN PRN Reason: Insomnia Stop: 11/18/23 17:01 Hydroxyzine HCl (Hydroxyzine Hcl 25 Mg Tab) 25 mg PO Q4H PRN PRN Reason: Anxiety Stop: 11/18/23 17:01 Lorazepam (Lorazepam 1 Mg Tab) 1 mg PO HS ANDRE Stop: 11/24/23 21:59 Last Admin: 10/27/23 20:42 Dose: 1 mg Magnesium Hydroxide (Magnesium Hydroxide Susp 30 Ml Udc) 30 ml PO DAILY PRN PRN Reason: Constipation Stop: 11/18/23 17:01 Last Admin: 10/26/23 19:44 Dose: 30 ml Magnesium Oxide (Magnesium Oxide 400 Mg Tab) 400 mg PO QAM ANDRE Stop: 11/22/23 12:44 Last Admin: 10/28/23 09:01 Dose: 400 mg Multivitamins/Folic Acid/Vitamin C (Multivitamin Chewable Tab) 1 tab PO QAM ANDRE Stop: 11/22/23 12:44 Last Admin: 10/28/23 09:01 Dose: 1 tab Naltrexone HCl (Naltrexone Hcl 50 Mg Tab) 50 mg PO DAILYBD ANDRE Stop: 11/21/23 17:14 Last Admin: 10/27/23 17:19 Dose: 50 mg Paliperidone (Paliperidone 3 Mg Tabcr) 3 mg PO HS ANDRE Stop: 11/27/23 21:59 Polyethylene Glycol (Polyethylene (Miralax) 17 Gm Pack) 17 gm PO DAILY ANDRE Stop: 11/27/23 08:59 Last Admin: 10/28/23 09:01 Dose: 17 gm Risperidone (Risperidone 0.5 Mg Tablet) 0.5 mg PO BID PRN PRN Reason: Anxiety/Agitation Stop: 11/19/23 11:33 Sodium Chloride (Sodium Chloride 0.65% Na Soln 45 Ml ([place])) 1 - 2 sprays NA PRN PRN PRN Reason: Nasal Dryness/Congestion Stop: 11/18/23 17:01 Venlafaxine HCl (Venlafaxine Hcl Xr 150 Mg Capxr) 150 mg PO QAM ANDRE Stop: 11/27/23 08:59 Last Admin: 10/28/23 09:01 Dose: 150 mg Vitamin D (Cholecalciferol 125 Mcg (5,000 Units) Tab) 125 mcg PO QAM ANDRE Stop: 11/22/23 12:44 Last Admin: 10/28/23 09:00 Dose: 125 mcg Mental Health & Subst Abuse Tx Psychiatrist Name of Psychiatrist: Dwight Lee @ [place] [facility] Date Of Appointment With Psychiatric Provider: 11/01/23Wednesday Time of Appointment with Psychiatrist: 11:15 Psychiatric Appointment Comment: Request NIELSEN Carl Sy as it was out of stock at the hospital pharmacy Therapist Name of Therapist: Psychologist Resident at [facility] Psych Clinic Therapist's Date of Therapist Appointment: 11/02/23Wednesday Time of Therapist Appointment: 2pm Therapy Appointment Comment: in person Web Content Developer Name of Web Content Developer: Heaven Phone Number for Web Content Developer: [phone] Date of Appointment with Web Content Developer: 11/01/23 Time of Appointment with Web Content Developer: 1PM (Wednesday) Case Management Appointment Comment: Meet at [facility] Post Discharge Appointments Primary Care Physician Name Of Family Doctor/PCP: Dr. Glynn Amaya Specialist Name of Specialist: Communications Electrician Supervisor
[2023-10-28] MEDS: PALIPERIDONE 3 MG TABCR PO SCH (22:07)
[2023-10-29 06:46] VITALS: TEMP 97.9
--- NOTE | 2023-10-29 10:55 | Discharge Summary ---
Date of Service October 29, 2023 History of Present Illness Rachel presented to the hospital with her brother due to his concerns for her worsening depression, SI and possible psychosis. While in the emergency department she made multiple statements of suicide including asking her brother if she could be killed. She also reported concerns for various physical conditions in the emergency department such as fearing she may have experienced a stroke or could some type of infection. Today she wonders if she should leave the hospital but agrees that she needs help and is willing to remain here. She reports that a few weeks ago she used cannabis and then stopped taking her psychiatric medications (Invega 3mg BIDM and Effexor XR 75mg daily). Since then she reports a significant increase in eating disorder problems over the past couple of weeks, including overeating, not eating three meals a day, and ruminative thoughts about food. She describes thoughts such as eating out of trash cans and stealing food off of people's plates due to her ruminations and degree of feeling out of control with food. She admits to binging almost every day and purging twice in the past couple of weeks. She has been off her psychiatric medications, including Invega, for approximately two weeks and believes this may be contributing to her eating disorder problems. She has been experiencing thoughts of suicide for the past two weeks, which she attributes to her eating disorder problems feeling overwhelming and out of control. She reports that even when talking to someone about her issues, she still engages in disordered eating behaviors. She had a video consultation with a therapist during which she wanted to go to the bathroom and throw up. Apparently besides work has been spending almost all of her time lying in bed with low motivation, anhedonia, and poor self-care. She admits to using marijuana twice recently, which caused her to hear voices (mumbled, lessening now) and a sense of paranoia. She reports that these symptoms have started to improve. She also mentions a concern about her neighbors potentially putting an appetite stimulant in her water. Apparently has also recently referenced a possible concern about army men killing people at [employer]. She states that her work has been affected by her eating disorder, making it difficult for her to concentrate. 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 Prior to stopping her psychiatric medications, she felt that they were helping with her eating disorder to some extent. Her brother has been visiting her but she feels their relationship is strained due to her recent suicidal thoughts and depression. She feels he is growing "frustrated with me". Also with apparent recent episodes of self-harm via superficial cuts to her wrist. Physical Exam Mental Examination Appearance: Disheveled Eye Contact: Direct Eye Contact Motor Behavior: Slowed Speech: Poverty of Speech Mood: Depressed Affect: Blunted (minimal reactivity) Thought Process: Intact and Winona Thought Content: Poverty of Content Hallucinations: None Insight: Fair (improved) Judgement: Fair (improved) Vital Signs (Past 24 Hours) Last Vital Signs Temp 36.6 C 10/29/23 06:45 Pulse 109 H 10/29/23 06:45 Resp 16 10/29/23 06:45 BP 128/92 10/29/23 06:45 Pulse Ox 98 10/21/23 06:54 O2 Del Method Room Air 10/21/23 06:54 Principal Diagnosis Major Depressive Disorder, recurrent, severe without psychosis Psychiatric Data See daily stay summary. In short, safety was maintained and the patient was cooperative with care. Medication changes included Starting paliperidone 4.5 mg at bedtime, lorazepam 0.5 mg nightly, increasing Effexor XR to 150 mg daily and they tolerated this well. A family session was held and safety plan was completed prior to discharge. the patient initially presented with persecutory delusions and complaints of auditory hallucinations. At that time she presented poor motivation, low energy, concentration deficits and a flat affect. Her condition improved during hospitalization with resolution of psychosis and no new persecutory delusions, a more reactive and brighter affect, improved motivation and self-care, fair sleep and appetite, and improved future outlook. Patient may be a good candidate for electroconvulsive therapy and this was recommended on an outpatient basis; resources provided. Patient presented to the hospital after medication nonadherence and was counseled on the benefits of transition to long-acting injection ; was agreeable and will plan to discuss with outpatient health care provider. Family was counseled on recommendations. Day of Discharge Assessment Today the patient voices readiness for discharge. They note improvement in mood and deny thoughts to harm self or others. Thoughts remain organized and they are improved from admission. There is no evidence of psychosis. They agree to take mediations as prescribed and keep follow-up appointments. They are stable for discharge to outpatient level of care. Transition of Care Transition Of Care Record: was reviewed with the patient Advance Directives Advance Directives Information Provided: No Advance Directives: No Mental Health Advance Directive: No Advance Directives on File: No Living Will: No Power of Ultimate Hoops Scoreboard Operator: No Advance Directives Reason:: Declines as Mental Health Visit. Risk Factors Assessment Male: No : Yes Do You Have Access To A Gun?: No Health Problems: No Mental Health Diagnoses: Yes Substance Use Disorders: No Previous Attempt: No Family History of Suicide: No Previous Psychiatric Hospitalization: Yes Hopelessness: Yes Protective Factors Assessment Employed: Yes Stable Relationships: Yes Supportive Family: Yes Discharge Data Lab Results 10/19/23 10/19/23 10/21/23 13:06 13:14 07:51 WBC 5.40 RBC 4.34 Hgb 13.6 Hct 41.3 MCV 95.2 MCH 31.3 MCHC 32.9 RDW Std Deviation 43.6 RDW Coeff of Emanuel 12.5 Plt Count 260 MPV 9.0 L Immature Gran % (Auto) 0.2 Neut % (Auto) 60.9 Lymph % (Auto) 29.3 Campbell % (Auto) 8.9 Eos % (Auto) 0.0 Baso % (Auto) 0.7 Neut # (Auto) 3.29 Lymph # (Auto) 1.58 Campbell # (Auto) 0.48 Eos # (Auto) 0.00 Baso # (Auto) 0.04 Immature Gran # (Auto) 0.01 Sodium 135 L Potassium 4.5 Chloride 100 Carbon Dioxide 30 Anion Gap 5 BUN 28 H Creatinine 0.63 Est Cr Clr Drug Dosing 92.8 Est GFR ( Amer) 118.7 Est GFR (Non-Af Amer) 102.4 BUN/Creatinine Ratio 44.4 H Glucose 90 Estimat Average Glucose 111 Hemoglobin A1c 5.5 Calcium 9.3 Total Bilirubin 0.4 AST 19 ALT 31 Alkaline Phosphatase 86 Total Protein 6.9 Albumin 4.4 Globulin 2.5 Albumin/Globulin Ratio 1.8 Triglycerides 59 Cholesterol 189 LDL Cholesterol, Calc 115 VLDL Cholesterol, Calc 12 HDL Cholesterol 62 Cholesterol/HDL Ratio 3.0 TSH 1.558 Urine Color Yellow Urine Appearance Clear Urine pH 7.5 Ur Specific [place] 1.019 Urine Protein Negative Urine Glucose (UA) Negative Urine Ketones Negative Urine Blood Negative Urine Nitrite Negative Urine Bilirubin Negative Urine Urobilinogen Negative Ur Leukocyte Esterase Trace H Urine WBC (Auto) 0-5 Urine RBC (Auto) 0-2 U Hyaline Cast (Auto) 0-2 U Epithel Cells (Auto) 0-2 Urine Bacteria (Auto) None Seen Salicylates < 3.0 L Urine Opiates Screen Neg Ur Methadone, Qual Neg Urine Fentanyl Screen Neg Acetaminophen < 3 L Urine Barbiturates Neg Ur Phencyclidine (PCP) Neg U Amphetamin/Meth Scrn Neg MDMA (Ecstasy) Screen Neg U Benzodiazepines Scrn Neg Ur Cocaine Metabolite Neg U Marijuana (THC) Screen Neg Ethyl Alcohol mg/dL < 10.0 SARS-CoV-2, RNA, NAAT NEGATIVE 10/24/23 08:32 WBC RBC Hgb Hct MCV MCH MCHC RDW Std Deviation RDW Coeff of Emanuel Plt Count MPV Immature Gran % (Auto) Neut % (Auto) Lymph % (Auto) Campbell % (Auto) Eos % (Auto) Baso % (Auto) Neut # (Auto) Lymph # (Auto) Campbell # (Auto) Eos # (Auto) Baso # (Auto) Immature Gran # (Auto) Sodium 134 L Potassium Chloride Carbon Dioxide Anion Gap BUN Creatinine Est Cr Clr Drug Dosing Est GFR ( Amer) Est GFR (Non-Af Amer) BUN/Creatinine Ratio Glucose Estimat Average Glucose Hemoglobin A1c Calcium Total Bilirubin AST ALT Alkaline Phosphatase Total Protein Albumin Globulin Albumin/Globulin Ratio Triglycerides Cholesterol LDL Cholesterol, Calc VLDL Cholesterol, Calc HDL Cholesterol Cholesterol/HDL Ratio TSH Urine Color Urine Appearance Urine pH Ur Specific [place] Urine Protein Urine Glucose (UA) Urine Ketones Urine Blood Urine Nitrite Urine Bilirubin Urine Urobilinogen Ur Leukocyte Esterase Urine WBC (Auto) Urine RBC (Auto) U Hyaline Cast (Auto) U Epithel Cells (Auto) Urine Bacteria (Auto) Salicylates Urine Opiates Screen Ur Methadone, Qual Urine Fentanyl Screen Acetaminophen Urine Barbiturates Ur Phencyclidine (PCP) U Amphetamin/Meth Scrn MDMA (Ecstasy) Screen U Benzodiazepines Scrn Ur Cocaine Metabolite U Marijuana (THC) Screen Ethyl Alcohol mg/dL SARS-CoV-2, RNA, NAAT Hospital Course (1) MDD (major depressive disorder), recurrent severe, without psychosis: (2) Binge eating disorder: Plan 10/28/2023: Starting tomorrow we will consolidate Invega to 4.5 mg at bedtime. Miralax daily scheduled. Continue other medications. 10/27/2023: Increase Effexor XR to 150mg daily. 10/26/2023: Continue medications and treatment plan. 10/25/2023: Decrease lorazepam to 1 mg at bedtime. Repeat EKG. 10/24/2023: Continue medications and treatment plan. 10/23/2023: Start lorazepam 1.5 mg at bedtime. Increase paliperidone to 3 mg twice daily. Sodium level to be checked tomorrow morning. Start vitamin D, multivitamin, magnesium supplement. 10/22/2023: Increase naltexone to 50mg qdinner. 10/21/2023: Continue current medications and tx plan. 10/20/2023: The patient was admitted to the [facility] ([facility] mental health unit) on q15 min checks (behavioral with suicide precautions) for safety. The patient will participate in group, recreational, and milieu therapies and will be offered additional individual and family sessions as clinically appropriate. -Start Invega 1.5mg BIDM -Start Effexor XR 75mg qAM -Start naltrexone 25mg qdinner -[employer] Sales Executive consult -Fasting lipid panel, glucose in AM Mental Health & Subst Abuse Tx Psychiatrist Name of Psychiatrist: Dwight Lee @ [facility] Date Of Appointment With Psychiatric Provider: 11/01/23Wednesday Time of Appointment with Psychiatrist: 11:15 Psychiatric Appointment Comment: Request NIELSEN Invega Sustenna as it was out of stock at the hospital pharmacy Therapist Name of Therapist: Psychologist Resident at [facility] Therapist's Date of Therapist Appointment: 11/02/23Wednesday Time of Therapist Appointment: 2pm Therapy Appointment Comment: in person Sight Mounter Name of Sight Mounter: Heaven Phone Number for Sight Mounter: [phone] Date of Appointment with Sight Mounter: 11/01/23 Time of Appointment with Sight Mounter: 1PM (Wednesday) Case Management Appointment Comment: Meet at [facility] Post Discharge Appointments Primary Care Physician Name Of Family Doctor/PCP: Dr. Glynn Amaya Specialist Name of Specialist: Hair Worker Discharge Plan Discharge Items Patient Disposition: Home - Self-Care Reason For Visit: UNSPECIFIED DEPRESSION DISORDER Discharge Diagnosis: Major Depressive Disorder, recurrent, severe without psychosis Binge eating disorder Condition on Discharge: Fair Activity: Resume your previous activity Non-emergency contact: Primary Care Provider and Psychiatrist Call non-emergency contact if: you have any medication questions and your symptoms worsen Follow-up/Referrals: Hernando Maki MD [Primary Care Provider] - Diet: Regular Addtl Attending Provider Instructions: -Continue Effexor XR 150mg daily (for depression) -Continue Naltrexone 50mg daily (for binge eating cravings) -Continue Invega 4.5mg nightly (for depression and thoughts) -Continue Lorazepam 0.5mg nightly (for sleep) -Follow-up with outpatient psychiatrist. If symptoms do not improve consider outpatient ECT: Available at [facility] - [email or web address] Available at [facility] in [place] [email or web address] - Recommend Long Active Injectable version of Invega and can transition to this with outpatient physician Pending Studies at Discharge: No Stand-Alone Forms: My [facility] kubo financiero, Smoking Cessation Medications and DC Order Prescriptions: New lorazepam 0.5 mg tablet 0.5 mg PO HS Qty: 30 0RF naltrexone 50 mg Tablet 50 mg PO DAILYBD Qty: 30 0RF paliperidone 1.5 mg tablet extended release 24 hr 4.5 mg PO HS Qty: 90 0RF venlafaxine 150 mg Capsule,Extended Release 24hr 150 mg PO QAM Qty: 30 0RF docusate sodium 250 mg capsule 250 mg PO BID Qty: 60 0RF polyethylene glycol 3350 [Miralax] 17 gram Powder In Packet 17 g PO DAILY PRN (Reason: constipation) Qty: 30 0RF cholecalciferol (vitamin D3) 125 mcg (5,000 unit) Tablet 125 mcg PO QAM Qty: 30 0RF Discontinued buspirone 7.5 mg tablet 7.5 mg PO BID paliperidone 3 mg tablet extended release 24 hr 3 mg PO BID venlafaxine 75 mg capsule,extended release 24hr 75 mg PO DAILY docusate sodium 100 mg capsule 200 mg PO BID Discharge Orders: Discharge Order (Routine); Ordered 10/29/23 Ordered By: Hong Ramires Admission Data Admit Date/Time: 10/19/23 17:20 Attending Provider: Hong Ramires Admit Provider: Josie Pederson Primary Care Provider: Hernando Maki Other Interventions: Discharge Summary Assessment (RN) Last Done: 10/29/23 12:13 PSY Interdisciplinary Discharge Planning Last Done: 10/29/23 12:14 [place] [address] D/C day mgmt > 30 min Patient Type Established History Detailed Exam Detailed Medical Decision Making High Complexity Diagnoses MDD (major depressive disorder), recurrent severe, without psychosis F33.2 Binge eating disorder F50.81
[2023-10-29 11:57] VITALS: BP 113/81; PULSE 102
--- NOTE | 2023-11-03 06:12 | Coding Query ---
CODING QUERY To promote full compliance with coding requirements relating to patient care, provider participation is requested in all cases of export freight manager uncertainty. Please assist us with the question(s) below: Coding Question(s): Please clarify if the patient was admitted and treated for major depressive, recurrent, severe, with psychosis. It was documented throughout w/psychosis until the . Clarification is needed to confirm the patient had w/psychosis during the stay and had the psychosis controlled for discharge. Physician's Response(s): The patient presented with MDD, severe, with psychotic features and presented psychotic features through the hospitalization. Eventually psychosis resolved with treatment and was not present on discharge. Thank you Josie Patel Principal Diagnosis: "that condition established after study, to be chiefly responsible for occasioning the admission of the patient to the hospital for care." Co-Existing Principal Diagnosis: "when two or more diagnoses equally meet the criteria for principal diagnosis as determined by the circumstances of admission, diagnostic work up, and/or therapy provided, and the Alphabetic Index, Tabular List, or another coding guideline does not provide sequencing direction, any one of the diagnoses may be sequenced first." "When the physician has documented what appears to be a current diagnosis in the body of the record, but has not included the diagnosis in the final diagnostic statement, the physician should be asked whether the diagnosis should be added." (Source Coding Clinic 2 QTR90. p3-4) MALIK
== END 2023-10-29 15:57 | disposition home or self-care (01) | DRG 885 ==
LOC: ED 12:30 → 3S 17:08 → SUATTDRO 17:20 → UNDODISIN 10-29 11:50

== ENCOUNTER 2025-01-16 18:30 | Inpatient (IN) ==
--- NOTE | 2025-01-16 19:07 | Emergency Department Note ---
Impression & Plan Depression with suicidal ideation, Urinary tract infection ED Provider Note NAME: MONICA ERWIN AGE: 54 SEX: F : 1970 ARRIVES VIA: [employer] INFORMANT: Patient, the police ED PROVIDER(S): Evangelist Brown DO CHIEF COMPLAINT: Mental health evaluation HPI: The patient is a 54-year-old female who presented to the emergency department for mental-health evaluation. The patient has a history of major depression. She does have a history of recent inpatient treatment. The patient states that she has been compliant with her outpatient medications. The patient states that she is not having any suicidal homicidal ideation. She arrives with police after a 302 petition was filed. The patient is answering questions appropriately. ROS: See above HPI for pertinent positives & negatives. A total of 10 systems reviewed and were otherwise negative. PAST MEDICAL HISTORY: See Below PAST SURGICAL HISTORY: See Below FAMILY HISTORY: See Below SOCIAL HISTORY: See Below HOME MEDICATIONS: See Below ALLERGIES: See Below VITALS: See Below PHYSICAL EXAMINATION: GENERAL: The patient is awake and alert. The patient is guarded. EYES: The conjunctivae are clear. The pupils are round and reactive. EARS, NOSE, MOUTH AND THROAT: The nose is without any evidence of any deformity. NECK: The neck is nontender and supple. RESPIRATORY: Normal respiratory effort is noted there is no evidence of wheezing rhonchi or rales CARDIOVASCULAR: Regular rate and rhythm noted there no murmurs rubs or gallops normal S1 normal S2. GASTROINTESTINAL: The abdomen is soft. Abdomen is nontender. MUSCULOSKELETAL/EXTREMITIES: There is no evidence of gross deformity full range of motion is noted in the hips and shoulders. SKIN: There is no obvious evidence of any rash. There are no petechiae, pallor or cyanosis noted. NEUROLOGIC: Patient is awake alert and oriented x3 PSYCH: The patient makes poor eye contact. Her affect is very flat. Currently the patient is denying any suicidal or homicidal ideation. MEDICAL DECISION MAKING: The patient is a 54-year-old female who presented to the emergency department for mental health evaluation. The patient presented as a 302 petition. Initially when the patient arrived her affect was very flat. She was denying any suicidal or homicidal ideation. Patient was medically cleared in the emergency department but was found to have signs of urinary tract infection on urinalysis. She was started on a course of oral antibiotics. The patient was evaluated by the [facility] returned case inspector. The patient was still showing very poor insight into her overall condition. Reviewing the patient's 302 petition does reveal significant concerns. For this reason I did uphold the 302 petition. The patient was evaluated by the [facility] health returned case inspector. At this time bed search is currently underway. Triage Nursing notes reviewed. Prior medical records reviewed Vital Signs: reviewed and remarkable for no significant abnormalities Differential diagnosis: Mood disorder, infection, hypoglycemia, electrolyte abnormalities, cardiac sources, intracerebral event, toxicologic, trauma, neurologic, as well as other pathologies. ER treatment provided: See below Diagnostics interpreted by me: ECG: none Laboratory studies: As stated above and show below. Imaging studies: See below. Radiographic imaging was reviewed by myself Consultation(s): I discussed this case with the emergency department health returned case inspector. The patient was independently evaluated by the [facility] returned case inspector. The patient was evaluated by the delegate from [facility]. She was felt to be a good candidate for inpatient management on [facility]. Past Med/Surg History Problem List (Updated 01/16/25 @ 20:01 by Evangelist Brown DO) Urinary tract infection (Acute) Depression with suicidal ideation (Acute) MDD (major depressive disorder), recurrent severe, without psychosis Binge eating disorder Bipolar affective disorder, depressed, moderate Anorexia nervosa Dietary restriction Elevated troponin (Acute) Leukopenia (Acute) Chest pain (Acute) Hypokalemia Acute metabolic encephalopathy Acute hyponatremia (Acute) Drug-induced leukopenia Chronic leukopenia Neutropenia Concussion Acute hyponatremia (Acute) Pituitary adenoma Adjustment disorder with mixed anxiety and depressed mood Medical History Noncompliance with medications Delusional thoughts Suicidal ideation Chronic hyponatremia MDD (major depressive disorder), recurrent, severe, with psychosis Unspecified mood [affective] disorder Eating disorder Psychogenic polydipsia Pelvic fracture Lumbar disc disease No chronic diseases present Surgical History Status post endovenous radiofrequency ablation (RFA) of saphenous vein Inguinal hernia No significant past surgical history Family History Mother Breast cancer Social History Smoking Status: Former smoker Hx Alcohol Use: No Hx Substance Use: No Preferred Language: Thai Communication Ability: Effective Javascript Programmer Required: No Beliefs That Will Affect Care: None Current Living Situation: Alone Current Living Situation Comment: doesn't live in a great neighborhood Feels Safe at Home: Yes Gender Identity: Female Assistive Devices: None Allergies Allergies Allergy/AdvReac Type Severity Reaction Status Date / Time corn Allergy Severe EDEMA Verified 11/14/24 20:53 AIRWAY peanut Allergy Severe EDEMA Verified 11/14/24 20:53 AIRWAY/RASH wheat Allergy Severe EDEMA Verified 11/14/24 20:53 AIRWAY/CELIAC DISEASE bupropion [From Wellbutrin] Allergy Intermediate Hives Verified 11/14/24 20:53 latex Allergy Intermediate Rash Verified 11/14/24 20:53 oxycodone AdvReac Severe Seizure Verified 11/14/24 20:53 acetaminophen AdvReac Intermediate Vomiting Verified 11/14/24 20:53 escitalopram AdvReac Intermediate VISION Verified 11/14/24 20:53 DISTURBANCES Home Meds Home Medications Medication Instructions Recorded Confirmed ergocalciferol (vitamin D2) 1,250 1,250 mcg PO WK 11/14/24 01/16/25 mcg (50,000 unit) capsule (Vitamin D2) cariprazine 3 mg capsule (Vraylar) 3 mg PO HS 01/16/25 01/16/25 dextroamphetamine-amphetamine ER 20 cap PO DAILY 01/16/25 01/16/25 20 mg 24hr capsule,extend release duloxetine 60 mg capsule,delayed 60 mg PO HS 01/16/25 01/16/25 release Results & Data (ED) Vital Signs Vital Signs - 24 hr 01/16/25 18:38 01/16/25 20:27 01/16/25 22:08 Temperature 36.4 C L 36.4 C L Temperature Source Oral Oral Pulse Rate 75 Pulse Rate [Finger] 73 Respiratory Rate 16 15 14 Respiratory Effort / Characteristics Non-Labored Spontaneous Non-Labored Spontaneous Non-Labored Spontaneous Respiratory Depth Normal Normal Normal Respiratory Pattern Regular Regular Regular Blood Pressure 131/91 Blood Pressure [Right Arm] 133/93 Blood Pressure Mean 104 Blood Pressure Mean [Right Arm] 106 Pulse Oximetry 99 96 Oxygen Delivery Method Room Air Room Air Sepsis Recent Fever Within 48 Hours No Sepsis New/Unexplained Change in Mental Status No Sepsis Action Taken by Nursing No Action Required Home Medications Current Medication List: was personally reviewed by me Laboratory Data Attestation: I reviewed the patient's lab results. 01/16/25 19:19 01/16/25 19:19 Lab Results 01/16/25 01/16/25 Range/Units 19:19 19:40 WBC 5.12 (4.8-10.8) K/ul RBC 4.10 L (4.20-5.40) M/uL Hgb 12.1 (12.0-16.0) g/dL Hct 35.7 L (37.0-47.0) % MCV 87.1 (80.0-100.0) fL MCH 29.5 (25.0-34.0) pg MCHC 33.9 (32.0-36.0) g/dL RDW Std Deviation 45.7 (36.4-46.3) fL RDW Coeff of Emanuel 14.3 (11.5-14.5) % Plt Count 237 (130-400) K/uL MPV 9.3 L (9.4-12.4) fL Immature Gran % (Auto) 0.2 % Neut % (Auto) 52.3 % Lymph % (Auto) 40.6 % [place] % (Auto) 6.1 % Eos % (Auto) 0.2 % Baso % (Auto) 0.6 % Neut # (Auto) 2.68 (1.40-6.50) K/uL Lymph # (Auto) 2.08 (1.20-3.40) K/uL [place] # (Auto) 0.31 (0.11-0.59) K/uL Eos # (Auto) 0.01 (0.00-0.50) K/uL Baso # (Auto) 0.03 (0.00-0.20) K/uL Immature Gran # (Auto) 0.01 (0.01-0.20) K/uL Sodium 140 (136-145) mmol/L Potassium 3.6 (3.5-5.1) mmol/L Chloride 108 H (98-107) mmol/L Carbon Dioxide 26 (21-32) mmol/L Anion Gap 6 (3-11) BUN 22 (6-23) mg/dl Creatinine 0.67 (0.6-1.2) mg/dl Est Cr Clr Drug Dosing 89.9 ml/min eGFR 103.80 BUN/Creatinine Ratio 32.8 H (10-20) Glucose 115 H (70-99(Fasting)) mg/dl Calcium 8.9 (8.6-10.3) mg/dl Total Bilirubin 0.4 (0.2-1.0) mg/dl AST 14 (13-39) U/L ALT 12 (7-52) U/L Alkaline Phosphatase 84 (34-104) U/L Total Protein 6.4 (6.0-8.3) gm/dl Albumin 3.5 (3.4-5.0) gm/dl Globulin 2.9 (2.5-4.0) gm/dl Albumin/Globulin Ratio 1.2 (0.9-2) TSH 1.125 (0.300-4.500) uIu/ml Urine Color Yellow Urine Appearance Clear (Clear) Urine pH 6.0 (4.5-7.5) Ur Specific [place] 1.028 (1.000-1.030) Urine Protein Negative (Negative) Urine Glucose (UA) Negative (Negative) Urine Ketones Trace H (Negative) Urine Blood Negative (Negative) Urine Nitrite Negative (Negative) Urine Bilirubin Negative (Negative) Urine Urobilinogen Negative (Negative) Ur Leukocyte Esterase 2+ H (Negative) Urine WBC (Auto) >50 H (0-5) /hpf Urine RBC (Auto) 0-2 (0-2) /hpf U Hyaline Cast (Auto) 0-2 (0-2) /lpf U Epithel Cells (Auto) 3-5 H (0-2) /hpf Urine Bacteria (Auto) None Seen (None Seen) Urine Mucus Present A (None Prsent) Urine Test Negative (Negative) Urine Comment Salicylates < 3.0 L (3.0-30) mg/dl Urine Opiates Screen Neg (Neg) Ur Methadone, Qual Neg (Neg) Urine Fentanyl Screen Neg (Neg) Acetaminophen < 3 L (10-30) ug/ml Urine Barbiturates Neg (Neg) Ur Phencyclidine (PCP) Neg (Neg) U Amphetamin/Meth Scrn Pos H (Neg) MDMA (Ecstasy) Screen Pos H (Neg) U Benzodiazepines Scrn Neg (Neg) Ur Cocaine Metabolite Neg (Neg) U Marijuana (THC) Screen Neg (Neg) Ethyl Alcohol mg/dL < 10.0 (<10.0) mg/dl SARS-CoV-2, RNA, NAAT NEGATIVE (NEGATIVE) Administered Medications Discontinued Medications Cefdinir (Cefdinir 300 Mg Cap) 300 mg PO ONE STA; Protocol Stop: 01/16/25 20:01 Last Admin: 01/16/25 20:09 Dose: 300 mg Documented By: [facility] Discharge Plan Visit Data Chief Complaint: Mental Health Evaluation Stated Complaint: 302 ED Provider: Evangelist Brown Discharge Problem: Depression with suicidal ideation, Urinary tract infection Patient Disposition: Transfer Behavioral Health Fac Condition: Fair Forms Stand Alone Forms: My [facility], Suicide Prevention Resources Prescriptions Prescriptions: No Action ergocalciferol (vitamin D2) [Vitamin D2] 1,250 mcg (50,000 unit) Capsule 1,250 mcg PO WK dextroamphetamine-amphetamine 20 mg capsule,extended release 24hr 20 cap PO DAILY Rx Instructions: TAKE 1 CAPSULE BY MOUTH EVERY MORNING duloxetine 60 mg capsule,delayed release(DR/EC) 60 mg PO HS Vraylar 3 mg capsule 3 mg PO HS Patient Comments: patient states "I only take it once a day, at bedtime." Rx Instructions: TAKE 1 CAPSULE BY MOUTH TWO TIMES DAILY Referrals Referrals: Hernando Maki MD [Primary Care Provider] -
[2025-01-16 19:44] LABS: Hematocrit (blood only) 35.7 % (37.0-47.0); Hemoglobin 12.1 g/dL (12.0-16.0); Immature Granulocytes # (auto) 0.01 K/uL (0.01-0.20); Immature Granulocytes % (auto) 0.2 %; Mean Corpuscular Hemoglobin 29.5 pg (25.0-34.0); Mean Corpuscular Volume 87.1 fL (80.0-100.0); Platelet Count 237 K/uL (130-400); RDW Standard Deviation 45.7 fL (36.4-46.3); Red Blood Count 4.10 M/uL (4.20-5.40); White Blood Count 5.12 K/ul (4.8-10.8)
[2025-01-16 19:58] LABS: Appearance Urine Clear (Clear); Bacteria Urine Automated None Seen (None Seen); Cast Urine Automated 0-2 /lpf (0-2); Glucose Urine UA Negative (Negative); RBC Urine Automated 0-2 /hpf (0-2); WBC Urine Automated >50 /hpf (0-5)
[2025-01-16 20:01] LABS: Alanine Aminotransferase 12.0 U/L (7-52); Albumin Globulin Ratio 1.2 (0.9-2); Albumin Level 3.5 gm/dl (3.4-5.0); Alkaline Phosphatase 84.0 U/L (34-104); Anion Gap 6.0 (3-11); Bilirubin,Total 0.4 mg/dl (0.2-1.0); Blood Urea Nitrogen 22.0 mg/dl (6-23); Calcium 8.9 mg/dl (8.6-10.3); Carbon Dioxide 26.0 mmol/L (21-32); Chloride 108.0 mmol/L (98-107); Creatinine Clr Calc Pharmacy 89.9 ml/min; Globulin 2.9 gm/dl (2.5-4.0); Glucose 115.0 mg/dl (70-99(Fasting)); Potassium 3.6 mmol/L (3.5-5.1); Sodium 140.0 mmol/L (136-145); Total Protein 6.4 gm/dl (6.0-8.3)
[2025-01-16 20:04] LABS: Acetaminophen < 3 ug/ml (10-30); Salicylate < 3.0 mg/dl (3.0-30)
[2025-01-16] MEDS: CEFDINIR 300 MG CAP PO STA (20:09)
[2025-01-16 20:16] LABS: Thyroid Stimulating Hormone 1.125 uIu/ml (0.300-4.500)
[2025-01-16 20:32] LABS: Amphetamines+Metham, Urine Pos (Neg); MDMA (Ecstacy), Urine Pos (Neg); Marijuana, Urine Neg (Neg)
[2025-01-16] MEDS ORDERED: ALUMINUM/MAGNESIUM SUSP 30 ML UDC PO PRN (23:23)
[2025-01-16] MEDS ORDERED: MAGNESIUM HYDROXIDE SUSP 30 ML UDC PO PRN (23:23)
[2025-01-16] MEDS ORDERED: SODIUM CHLORIDE 0.65% NA SOLN 45 ML (OCEAN) PRN (23:23)
[2025-01-16] MEDS ORDERED: BISMUTH SUBSALICYLATE 262 MG CHEW PO PRN (23:23)
[2025-01-16] MEDS: LORazepam 1 MG TAB PO STA (23:35)
[2025-01-16] MEDS: CARIPRAZINE HCL 3 MG CAP PO SCH (23:39)
[2025-01-17] MEDS: CEFDINIR 300 MG CAP PO SCH (10:06)
--- NOTE | 2025-01-17 12:51 | History & Physical ---
Date of Service January 17, 2025 Impression / Recommendations Impression RACHEL ERWIN is a 54-year-old F who currently lives with brother, has a history of MDD with psychosis, psychogenic polydipsia, binge eating disorder, and was admitted on 01/16/25 22:03 on a 302 involuntary commitment for suicidal ideation with plan. Presentation consistent with MDD, recurrent, severe with psychosis. Patient is well known to our unit with past hospitalizations for MDD psychosis, psychogenic polydipsia. Last seen by us in 10/2023 discharged on Effexor 150mg and Invega 4.5 with recommendations for outpatient ECT. Patient underwent partial 8 sessions of ECT with notable improvement per collateral, however lost to f/u. She was domiciled with brother for support and getting regular assistance. Patient's depression has worsened since then with poor self care, escalating suicidal ideations, and poor reality testing. Pt brother found a noose in her bed and alerted patient's outpatient clinic who recommended inpatient admission for safety and petition filed. Currently she is denying AVH, no known delusions per collateral or patient, however presents poor reality testing and paranoia towards her brother's care. Concern for recurrent and recent medication non- adherence and question her ability to manage her medications in the community; may benefit from NIELSEN for med-adherence. Recent psychiatric hospitalization for suicidal ideation and recommending long-term care. Labs and EKG reviewed and suspicious for active UTI; otherwise unremarkable. Would likely benefit from full course ECT given severity of her depression, history of treatment failures, and safety concerns with likely maintenance ECT thereafter. Considering referral to facility with ECT given h/o symptom improvement. Overall, I spent a total of 110 minutes with this case including review of chart records, nursing report, review of lab work, direct evaluation of the patient at bedside, counseling the patient, multidisciplinary team meeting, orders, and documentation in the electronic health record. (1) Suicidal ideation: (2) MDD (major depressive disorder), recurrent, severe, with psychosis: (3) Noncompliance with medications: (4) Urinary tract infection: Plan 01/17/2005:The patient was admitted to the [facility] ([facility] mental [facility] unit) on q15 min checks (behavioral with suicide precautions) for safety. The patient will participate in group, recreational, and milieu therapies and will be offered additional individual and family sessions as clinically appropriate. -Continue Duloxetine 60mg daily -Increase Cariprazine to 6mg HS -Lorazepam 1mg Q6hr PRN for anxiety, insomnia -D/c home Adderall -Labs: A1c, fasting lipids, Vit D, Vit B12 Inventory Assets Strengths: family support, outpatient care connection Needs: improved insight, medication adherence Suicide Risk Level Suicide Risk Level: High-Moderate (q15 min suicide checks) Risk Factors Assessment Male: No : Yes Do You Have Access To A Gun?: No Health Problems: No Mental Health Diagnoses: Yes Substance Use Disorders: No Previous Attempt: Yes Family History of Suicide: No Previous Psychiatric Hospitalization: Yes Hopelessness: Yes Protective Factors Assessment Mandaen Beliefs: No : No Responsible for Young Children: No Employed: No Stable Relationships: No Supportive Family: Yes Good Rapport with Provider: Yes Absence of Any Risk Factors Above: No Psychiatric History Identifying Data RACHEL ERWIN is a 54-year-old F who currently lives with brother, has a history of MDD with psychosis, psychogenic polydipsia, binge eating disorder, and was admitted on 01/16/25 22:03 on a 302 involuntary commitment for suicidal ideation with plan. Chief Complaint "Brother worried about suicide" History of Present Illness Patient seen laying in her bed and giving me direct eye contact. Often answers with a few words and has limited spontaneous speech. Flat affect. Inconsistent information presented at times. She reports her brother was worried about her committing suicide. Initially says that she had the thought and no plan and the reason was because she was "not happy". Suicidal ideation for the past month. Later when it is brought up she reports making a noose however did not tied around her neck or take any steps. Says she has been living with her brother after her last discharge from our hospital and in a separate room. Says she does not like living there because it is too controlling. 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 She denies having any anxiety or sleeping problems. Endorses low energy and low concentration. Denies excess guilt. Endorses anhedonia. Says that she was at [facility] for suicidal ideations and when asked what they did for she replies "not much". Reports ECT did help her for depression and was last tried 1 year ago. When asked why she refused her Ativan last night she says that it gives her more nightmares. Presents a current plan to return to work. She feels that the antidepressants never worked. Feels that Vraylar has been ineffective and that she stopped 1 week ago. Denies auditory visual sedations or recent episodes of marisela or hypomania (symptoms described). Denies having any fears or worries. Called RISHI ERWIN pt brother with pt permission (35 min): 1-2 weeks stopped cariprazine. Since d/c discharged from [facility] 1 mo ago less adherent (increased cariprazine to 6mg daily total and added duloxetine). Doing house work, found tied noose in her bed yesterday. Called psychologist immediately. Recently more agitated, more depressed. After last discharge from [facility], did 8 sessions of ECT. ECT was once weekly. Started improving dramatically. More expressive, laughing at times. More insight. Eating better. Rachel florentinowedged that. "Almost like a miracle" However did not f/u with scheduling at [facility]. Blacklisted her due to lack of f/u. Dr not willing to continue care. Working with psychologist and psychiatrist at [facility]. After ECT, struggled with poor hygiene not bathing for weeks-months. Deteroriating depression. Sleeps all the time. Holds a job. Stoic with her brother and is "Stone faced." No known AVH. Accusing brother of things that aren't true, accusing brother of commiting her. Not sure of medication change from Effexor to Cymbalta. Rachel c/o s/e. Brother didn't feel there were any real s/e. Brother having mental health problems trying to help her; now being treated himself and feels better. Collateral from recent case management and psych liaison notes: 01/17/25 00:16 - Psychiatric Liason Note by Ramona Moscoso "The patient reports that she told her brother that she wanted to kill herself and he called her therapist who made a petitioning statement on her. When asked, she did report making a noose, however, she denies that this was a plan for suicide. She is unable or unwilling to report why she made the noose. The patient reports she was brought to the ED by the police. When asked about medication compliance, she reports she has been taking medications as prescribed and was able to voice what medications she is on. She reports her stressor that makes her suicidal is being inpatient- "I'm miserable being in hospitals all the time". The patient denies other stressors. The patient reported that she sleeps "fine" and eats "fine". When asked about her history of anorexia and binge eating, she denied that she still struggles with those diagnosis. The patient reports that she has a therapist and Psychiatrist through [facility]. Her therapist is Jazmin Hogan and her Psychiatrist is Dr. Silva. The patient has a PCP through [facility] named Hernando Maki. The patient signed ROIs for her therapist, psychiatrist, and her PCP. " 01/16/25 18:51 - Case Management ED Psych by Mily Helm "Petitioning statement completed by Jazmin Hogan, PHD from [facility] reads as follows: " Rachel's brother called with concerns today after Rachel reportedly stated last night that she wants to kill herself. He sated she would not disclose any further information at that time, but that this morning he found a homemade noose in her bed. Rachel has researched hanging/strangulation in the past when suicidal. Rachel has a diagnosis of Schizoaffective disorder (depressed type) and has a longstanding history of persistent medication non-compliance (currently prescribed Vraylar, Remeron, Adderall). Her brother also reported that he has been finding Vraylar in her bed/room after she appears to take it under his supervision and then does not. She was recently discharged on 12/13/2024 after a month long hospitalization at [facility] for similar reasons (suicidality, psychosis, unable to take care of herself) and has since again decompensated. Affect is flat and depressed, unable to engage with activities of daily living like bathing and changing clothing. Agitation and paranoia observed. Poor insight into severity of illness."" 01/16/25 20:45 - Case Management ED Psych by Kalyani Jin "Placed call to Rachel's brother, Rishi, to confirm contents of petition statement by Rachel's provider. Rishi reports that Rachel went to [facility] on 11/14 and was discharged 12/13. Rishi and Rachel live in the same home in separate living areas. Rishi states that following her discharge, she began to decompensate again and not take care of herself. Yesterday, she told him that she has been having an increase in suicidal thoughts and that she wishes she could go off somewhere privately and kill herself. This morning, he found a noose in her bed, prompting him to immediately reach out to her MH provider at the [facility], Jazmin Hoagn, Ph.D. Rishi reports that he had attempted to bring Rachel to the ED earlier today voluntarily but she refused to get out of the car for an evaluation and told him that she is fine. He reports she said, "Big deal, I have a noose in my bed." Rishi shares that Rachel is not compliant with her medications, noting that he found several tablets of Vraylar scattered amongst her bed and on her floor in her bedroom. Rachel told Rishi that she does not wish to take medication because it doesn't work and kills her spirit. He further shares that Rachel is not taking care of her hygiene and only showers when Rishi prompts her to. She wears the same dirty clothes for several days on end. Spoke with Rachel at bedside to discuss information provided by the petition and by Rishi. Her affect is extremely flat. She maintains fixed eye contact throughout discussion but almost appears as if she is looking past who she is speaking to. Rachel reports she feels "pretty good" and denies any need for inpatient intervention. She reports that medication does not help her, but reports that she has been taking them. 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 She largely denies any acute symptoms but does admit to suicidal ideation and making the noose. She states that inpatient treatment is what makes her suicidal. Rachel is diagnosed with Schizoaffective disorder. She follows with Dr. Silva for psychiatry and Jazmin Hogan once a week for therapy. Rishi reports that he is Fatou kaiser's primary caregiver (helping with life tasks, not medical tasks) since her mental health hospitalization last year where she was diagnosed with depression with psychotic features. Rachel lacks insight to her severe mental health symptoms. She is not voluntary for treatment. Clinical reviewed with Dr. Brown who upheld 302 at 2024." Past Psychiatric History Current Psychiatric Diagnosis: Major Depressive Disorder Do You Have Access To A Gun?: No History of Previous Suicide Attempt: No Allergies Allergy/AdvReac Type Severity Reaction Status Date / Time corn Allergy Severe EDEMA Verified 11/14/24 20:53 AIRWAY peanut Allergy Severe EDEMA Verified 11/14/24 20:53 AIRWAY/RASH wheat Allergy Severe EDEMA Verified 11/14/24 20:53 AIRWAY/CELIAC DISEASE bupropion [From Wellbutrin] Allergy Intermediate Hives Verified 11/14/24 20:53 latex Allergy Intermediate Rash Verified 11/14/24 20:53 oxycodone AdvReac Severe Seizure Verified 11/14/24 20:53 acetaminophen AdvReac Intermediate Vomiting Verified 11/14/24 20:53 escitalopram AdvReac Intermediate VISION Verified 11/14/24 20:53 DISTURBANCES Home Medications Medication Instructions Recorded Confirmed Type ergocalciferol (vitamin D2) 1,250 1,250 mcg PO WK 11/14/24 01/16/25 History mcg (50,000 unit) capsule (Vitamin D2) cariprazine 3 mg capsule (Vraylar) 3 mg PO HS 01/16/25 01/16/25 History dextroamphetamine-amphetamine ER 20 cap PO DAILY 01/16/25 01/16/25 History 20 mg 24hr capsule,extend release duloxetine 60 mg capsule,delayed 60 mg PO HS 01/16/25 01/16/25 History release Family History Family History of: Doesn't Know Alcohol History Hx of Alcohol Use Over the Past 12 Months: No AUDIT Total Score: 0 Smoking Use Have You Smoked or Used Tobacco Products in the Last 30 Days: No Smoking Status: Former smoker Substance History Hx of Prescription Med Misuse Over the Past 12 Months: No Hx of Over the Counter Med Misuse Over the Past 12 Months: No Hx of Inhalent Misuse Over the Past 12 Months: No Hx of Organic Substance Use Over the Past 12 Months: No Hx of Illegal Substances/Street Drug Use Over Past 12 Months: No Problems as a Result of Past Substance Use: None Identified Personal History Beliefs That Will Affect Care: None Hx Legal Problems: No Hx Traumatic Life Events: Yes Patient History Medical History Noncompliance with medications Delusional thoughts Suicidal ideation Chronic hyponatremia MDD (major depressive disorder), recurrent, severe, with psychosis Unspecified mood [affective] disorder Eating disorder Psychogenic polydipsia Pelvic fracture Lumbar disc disease No chronic diseases present Surgical History Status post endovenous radiofrequency ablation (RFA) of saphenous vein Inguinal hernia No significant past surgical history Family History Mother Breast cancer Social History Smoking Status: Former smoker Hx Alcohol Use: No Hx Substance Use: No Preferred Language: Brazilian Communication Ability: Effective Windsmith Required: No Beliefs That Will Affect Care: None Current Living Situation: Alone Current Living Situation Comment: doesn't live in a great neighborhood Feels Safe at Home: Yes Gender Identity: Female Assistive Devices: None Physical Exam Mental Examination: Appearance: Disheveled Eye Contact: Direct Eye Contact Motor Behavior: Unremarkable Speech: Delayed Mood: Depressed Affect: Flat and Withdrawn Thought Process: Slowed Thinking Thought Content: Peculiar Hallucinations: None Insight: Poor Judgement: Poor Vital Signs (Past 24 Hours): Last Vital Signs Temp 36.8 C 01/17/25 06:00 Pulse 78 01/17/25 06:00 Resp 18 01/17/25 06:00 BP 120/84 01/17/25 06:00 Pulse Ox 95 01/17/25 06:00 O2 Del Method Room Air 01/17/25 06:00 Exam Statement: A physical exam was performed in the ED for the purposes of medical clearance. I accept that physical as correct and adequate for the purposes of the inpatient physical exam. Results & Data ([facility]) Laboratory Results Laboratory Results - last 24 hr 01/16/25 01/16/25 19:19 19:40 WBC 5.12 RBC 4.10 L Hgb 12.1 Hct 35.7 L MCV 87.1 MCH 29.5 MCHC 33.9 RDW Std Deviation 45.7 RDW Coeff of Emanuel 14.3 Plt Count 237 MPV 9.3 L Immature Gran % (Auto) 0.2 Neut % (Auto) 52.3 Lymph % (Auto) 40.6 [place] % (Auto) 6.1 Eos % (Auto) 0.2 Baso % (Auto) 0.6 Neut # (Auto) 2.68 Lymph # (Auto) 2.08 [place] # (Auto) 0.31 Eos # (Auto) 0.01 Baso # (Auto) 0.03 Immature Gran # (Auto) 0.01 Sodium 140 Potassium 3.6 Chloride 108 H Carbon Dioxide 26 Anion Gap 6 BUN 22 Creatinine 0.67 Est Cr Clr Drug Dosing 89.9 eGFR 103.80 BUN/Creatinine Ratio 32.8 H Glucose 115 H Calcium 8.9 Total Bilirubin 0.4 AST 14 ALT 12 Alkaline Phosphatase 84 Total Protein 6.4 Albumin 3.5 Globulin 2.9 Albumin/Globulin Ratio 1.2 TSH 1.125 Urine Color Yellow Urine Appearance Clear Urine pH 6.0 Ur Specific [place] 1.028 Urine Protein Negative Urine Glucose (UA) Negative Urine Ketones Trace H Urine Blood Negative Urine Nitrite Negative Urine Bilirubin Negative Urine Urobilinogen Negative Ur Leukocyte Esterase 2+ H Urine WBC (Auto) >50 H Urine RBC (Auto) 0-2 U Hyaline Cast (Auto) 0-2 U Epithel Cells (Auto) 3-5 H Urine Bacteria (Auto) None Seen Urine Mucus Present A Urine Test Negative Urine Comment Salicylates < 3.0 L Urine Opiates Screen Neg Ur Methadone, Qual Neg Urine Fentanyl Screen Neg Acetaminophen < 3 L Urine Barbiturates Neg Ur Phencyclidine (PCP) Neg U Amphetamines Confirm Pending U Amphetamin/Meth Scrn Pos H U Methamphetamin Confrm Pending Urine MDEA Pending MDMA (Ecstasy) Screen Pos H MDMA Pending Urine MDMA Pending U Benzodiazepines Scrn Neg Ur Cocaine Metabolite Neg U Marijuana (THC) Screen Neg Drug Screen Comment Pending Ethyl Alcohol mg/dL < 10.0 SARS-CoV-2, RNA, NAAT NEGATIVE Current Inpatient Medications Current Inpatient Medications: Current Inpatient Medications Al Hydrox/Mg Hydrox/Simethicone (Aluminum/Magnesium Susp 30 Ml Udc) 30 ml PO Q4H PRN PRN Reason: GI Upset Stop: 02/15/25 23:22 Bismuth Subsalicylate (Bismuth Subsalicylate 262 Mg Chew) 2 tab PO Q30M PRN PRN Reason: Loose Stool/Diarrhea Stop: 02/15/25 23:22 Cariprazine (Cariprazine Hcl 3 Mg Cap) 6 mg PO HS ANDRE Stop: 02/16/25 21:59 Cefdinir (Cefdinir 300 Mg Cap) 300 mg PO BID [facility]; Protocol Stop: 01/21/25 21:01 Last Admin: 01/17/25 10:06 Dose: 300 mg Duloxetine HCl (Duloxetine Hcl 60 Mg Cap) 60 mg PO QAM [facility] Stop: 02/16/25 08:59 Last Admin: 01/17/25 09:37 Dose: 60 mg Lorazepam (Lorazepam 1 Mg Tab) 1 mg PO Q6 PRN PRN Reason: Anxiety Stop: 02/15/25 23:21 Magnesium Hydroxide (Magnesium Hydroxide Susp 30 Ml Udc) 30 ml PO DAILY PRN PRN Reason: Constipation Stop: 02/15/25 23:22 Sodium Chloride (Sodium Chloride 0.65% Na Soln 45 Ml ([place])) 1 - 2 sprays NA PRN PRN PRN Reason: Nasal Dryness/Congestion Stop: 02/15/25 23:22
[2025-01-17] MEDS: LORazepam 1 MG TAB PO PRN (19:51)
[2025-01-17] MEDS: CARIPRAZINE HCL 3 MG CAP PO SCH (21:18)
[2025-01-17] MEDS ORDERED: CARIPRAZINE HCL 3 MG CAP PO SCH (22:00)
[2025-01-18 08:16] LABS: Cholesterol 239.0 mg/dl (0-200); HDL Cholesterol 46.0 mg/dl; Triglycerides 106.0 mg/dl (0-150)
[2025-01-18 08:25] LABS: Hemoglobin A1C 5.6 % (4.5-5.6)
--- NOTE | 2025-01-18 08:55 | Psychiatric Progress Note ---
Date of Service January 18, 2025 Impression / Recommendations Impression MONICA ERWIN is a 54-year-old F who currently lives with brother, has a history of MDD with psychosis, psychogenic polydipsia, binge eating disorder, and was admitted on 01/16/25 22:03 on a 302 involuntary commitment for suicidal ideation with plan. Diagnostically consistent with unspecified psychosis and depression with differential including major depressive disorder with psychotic features vs schizoaffective disorder current depressed mood. Suspect higher liklihood for schizoaffective disorder, with later life onset, given multiple hospitalizations over the last year and limited improvement except with ECT. Seems she has very prominent negative symptoms. A: Ongoing depression with SI and poor insight. Given this filing for 303 commitment. She consents to transition from Vraylar to Abilify given recent non- adherence and goal of exploring NIELSEN option. Reviewed side effects including but not limited to: movement (TD, NMS), cardiac (QTc prolongation), and metabolic (stroke, insulin resistance) and necessity for fasting lipid and glucose labwork and AIMS done with score of 0. Labwork reviewed and notable for elevated total cholesterol and LDL, HbA1c stable. Given ongoing need for antipsychotic will review option to start crestor tomorrow with her. Overall, I spent a total of 50 minutes on this case including meeting with the patient, reviewing the chart, nursing report, multidisciplinary team meeting, orders, and documentation and 303 commitment paperwork. (1) Depression with suicidal ideation: (2) Suicidal ideation: (3) Schizoaffective disorder: (4) Noncompliance with medications: (5) Urinary tract infection: Plan 01/18/2025: -Discontinue cariprazine -Start Abilify 10mg daily -Consider crestor initiation if she consents -303 hearing tomorrow 01/17/2005:The patient was admitted to the [facility] ([facility] inpatient mental health unit) on q15 min checks (behavioral with suicide precautions) for safety. The patient will participate in group, recreational, and milieu therapies and will be offered additional individual and family sessions as clinically appropriate. -Continue Duloxetine 60mg daily -Increase Cariprazine to 6mg HS -Lorazepam 1mg Q6hr PRN for anxiety, insomnia -D/c home Adderall -Labs: A1c, fasting lipids, Vit D, Vit B12 Inventory Assets Strengths: family support, outpatient care connection Needs: improved insight, medication adherence Suicide Risk Level Suicide Risk Level: High-Moderate (q15 min suicide checks) (depression with SI with plan and actions (created noose) prior to admission but denies any plans in the hospital, feels able to ask staff for support and no command AH) Risk Factors Assessment Male: No : Yes Do You Have Access To A Gun?: No Health Problems: No Mental Health Diagnoses: Yes Substance Use Disorders: No Previous Attempt: Yes Family History of Suicide: No Previous Psychiatric Hospitalization: Yes Hopelessness: Yes Protective Factors Assessment Mandaeism Beliefs: No : No Responsible for Young Children: No Employed: No Stable Relationships: No Supportive Family: Yes Good Rapport with Provider: Yes Absence of Any Risk Factors Above: No Interval History Identifying Information MONICA ERWIN is a 54-year-old F who currently lives with brother, has a history of MDD with psychosis, schizoaffective disorder, psychogenic polydipsia, binge eating disorder, and was admitted on 01/16/25 22:03 on a 302 involuntary commitment for suicidal ideation with plan. Chief Complaint "Just not happy with my life". Review of Systems Sleep Information Total Hours of Sleep: 8.5 Meal Information Percent Meal Consumed - Breakfast: 0 Percent Meal Consumed - Lunch: 50 Percent Meal Consumed - Dinner: 50 Subjective Subjective Patient was seen & assessed and interval progress reviewed with nursing and social work. Has been largely isolative to her room, lying in bed. Today reports her mood is "ok" but when asked about making the noose at home tells me she doesn't want to be alive because "I'm just not happy with my life" stating "I don't like my job it's boring and I don't like my living arrangements". States she's only been taking her medication every other day. Denies any recent purging. Thinks ECT helped "a little bit". Denies any hallucinations nor paranoia but appears distracted at times, possible she is responding to internal stimuli. Collateral from her brother to notable for prominent negative symptoms-poor self-care, social isolation/withdrawal, low motivation, anhedonia, flat affect. Physical Exam Psychiatric Orientation: alert and oriented x 3 Apperance: appropriately dressed and + disheveled Eye Contact: + fair eye contact Motor Behavior: no abnormal motor movements Speech: normal rate/rhythm/volume of speech Affect: + flat affect Mood: + depressed mood Thought Process: + concrete thought process Thought Content: + hopelessness Suicidal Thoughts: denies suicidal plan; + reports suicidal thoughts Homicidal Thoughts: denies homicidal thoughts Hallucinations: no auditory hallucinations and no visual hallucinations Insight: + limited insight Judgment: + limited judgement Vital Signs (Past 24 Hours) Last Vital Signs Temp 36.2 C L 01/18/25 06:21 Pulse 91 H 01/18/25 06:22 Resp 16 01/18/25 06:21 BP 117/83 01/18/25 06:22 Pulse Ox 95 01/17/25 06:00 O2 Del Method Room Air 01/17/25 06:00 Results & Data ([facility]) Laboratory Results Laboratory Results - last 24 hr 01/18/25 07:07 Estimat Average Glucose 114 Hemoglobin A1c 5.6 Triglycerides 106 Cholesterol 239 H LDL Cholesterol, Calc 172 VLDL Cholesterol, Calc 21 HDL Cholesterol 46 Cholesterol/HDL Ratio 5.2 H Vitamin B12 Pending 25-OH Vitamin D Total 40.5 Current Inpatient Medications Current Inpatient Medications: Current Inpatient Medications Al Hydrox/Mg Hydrox/Simethicone (Aluminum/Magnesium Susp 30 Ml Udc) 30 ml PO Q4H PRN PRN Reason: GI Upset Stop: 02/15/25 23:22 Bismuth Subsalicylate (Bismuth Subsalicylate 262 Mg Chew) 2 tab PO Q30M PRN PRN Reason: Loose Stool/Diarrhea Stop: 02/15/25 23:22 Cariprazine (Cariprazine Hcl 3 Mg Cap) 6 mg PO [facility] Stop: 02/16/25 21:59 Last Admin: 01/17/25 21:18 Dose: 6 mg Cefdinir (Cefdinir 300 Mg Cap) 300 mg PO BID [facility]; Protocol Stop: 01/21/25 21:01 Last Admin: 01/17/25 21:18 Dose: 300 mg Duloxetine HCl (Duloxetine Hcl 60 Mg Cap) 60 mg PO QAM [facility] Stop: 02/16/25 08:59 Last Admin: 01/17/25 09:37 Dose: 60 mg Lorazepam (Lorazepam 1 Mg Tab) 1 mg PO Q6 PRN PRN Reason: Anxiety Stop: 02/15/25 23:21 Last Admin: 01/17/25 19:51 Dose: 1 mg Magnesium Hydroxide (Magnesium Hydroxide Susp 30 Ml Udc) 30 ml PO DAILY PRN PRN Reason: Constipation Stop: 02/15/25 23:22 Sodium Chloride (Sodium Chloride 0.65% Na Soln 45 Ml ([place])) 1 - 2 sprays NA PRN PRN PRN Reason: Nasal Dryness/Congestion Stop: 02/15/25 23:22 Mental Health & Subst Abuse Tx Psychiatrist Name of Psychiatrist: [facility] - Dr. Silva Psychiatrist's Therapist Name of Therapist: [facility] - Jazmin Hogan Therapist's Post Discharge Appointments Primary Care Physician Name Of Family Doctor/PCP: Gilberto Alvarado Primary Care Provider Appointment Comment: Follow up as needed Contact Information Discharge Discharge Address: [address] [place] [address]
[2025-01-18] MEDS ORDERED: ACETAMINOPHEN 325 MG TAB PO PRN (10:20)
--- NOTE | 2025-01-19 08:58 | Psychiatric Progress Note ---
Date of Service January 19, 2025 Impression / Recommendations Impression MONICA ERWIN is a 54-year-old F who currently lives with brother, has a history of MDD with psychosis, psychogenic polydipsia, binge eating disorder, and was admitted on 01/16/25 22:03 on a 302 involuntary commitment for suicidal ideation with plan. Diagnostically consistent with unspecified psychosis and depression with differential including major depressive disorder with psychotic features vs schizoaffective disorder current depressed mood. Suspect higher liklihood for schizoaffective disorder, with later life onset, given multiple hospitalizations over the last year and limited improvement except with ECT. Seems she has very prominent negative symptoms. A: Ongoing depression and suspected prominent negative symptoms of schizophrenia with poor insight. 303 commitment granted. Tolerating abilify so far. No new medication side effects. Reviewed labwork results and she is agreeable to starting Crestor for HLD. Reviewed risks including but not limited to: muscle cramps, liver damage. Overall, I spent a total of 50 minutes on this case including meeting with the patient, reviewing the chart, nursing report, multidisciplinary team meeting, orders, and documentation and 303 commitment hearing. (1) Depression with suicidal ideation: (2) Suicidal ideation: (3) Schizoaffective disorder: (4) Noncompliance with medications: (5) Urinary tract infection: Plan 01/19/2025: -Start crestor 5mg daily 01/18/2025: -Discontinue cariprazine -Start Abilify 10mg daily -Consider crestor initiation if she consents -303 hearing tomorrow 01/17/2005:The patient was admitted to the [facility] ([facility] mental health unit) on q15 min checks (behavioral with suicide precautions) for safety. The patient will participate in group, recreational, and milieu therapies and will be offered additional individual and family sessions as clinically appropriate. -Continue Duloxetine 60mg daily -Increase Cariprazine to 6mg HS -Lorazepam 1mg Q6hr PRN for anxiety, insomnia -D/c home Adderall -Labs: A1c, fasting lipids, Vit D, Vit B12 Inventory Assets Strengths: family support, outpatient care connection Needs: improved insight, medication adherence Suicide Risk Level Suicide Risk Level: High-Moderate (q15 min suicide checks) (depression with SI with plan and actions (created noose) prior to admission but denies any plans in the hospital, feels able to ask staff for support and no command ) Risk Factors Assessment Male: No : Yes Do You Have Access To A Gun?: No Health Problems: No Mental Health Diagnoses: Yes Substance Use Disorders: No Previous Attempt: Yes Family History of Suicide: No Previous Psychiatric Hospitalization: Yes Hopelessness: Yes Protective Factors Assessment Holiness Beliefs: No : No Responsible for Young Children: No Employed: No Stable Relationships: No Supportive Family: Yes Good Rapport with Provider: Yes Absence of Any Risk Factors Above: No Interval History Identifying Information MONICA ERWIN is a 54-year-old F who currently lives with brother, has a history of MDD with psychosis, schizoaffective disorder, psychogenic polydipsia, binge eating disorder, and was admitted on 01/16/25 22:03 on a 302 involuntary commitment for suicidal ideation with plan. Chief Complaint "Just kind of bored". Review of Systems Sleep Information Total Hours of Sleep: 7.75 Meal Information Percent Meal Consumed - Breakfast: 100 Percent Meal Consumed - Lunch: 100 Percent Meal Consumed - Dinner: 50 Subjective Subjective Patient was seen & assessed and interval progress reviewed with treatment team. Attended a few groups briefly. Spends much of her time in bed. Seems thought blocked. Struggled with activity group with thinking about animals. Today she is isolative to her room. She reports her mood is "bored". Denies current SI related to lack of access stating "I'm stuck here now and don't have any options". Feels she's been depressed but denies psychosis. She does agree that many of the negative symptoms of schizophrenia overlap with her recent behaviors. States she spends time at home in bed because she has back pain and so cannot do yoga or ride her bike. She also used to like walking her dogs, states these are now with a friend. 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 Physical Exam Psychiatric Orientation: alert and oriented x 3 Apperance: appropriately dressed and + disheveled Eye Contact: + fair eye contact Motor Behavior: no abnormal motor movements Speech: normal rate/rhythm/volume of speech Affect: + flat affect Mood: + depressed mood Thought Process: + concrete thought process Thought Content: + hopelessness Suicidal Thoughts: denies suicidal plan; + reports suicidal thoughts Homicidal Thoughts: denies homicidal thoughts Hallucinations: no auditory hallucinations and no visual hallucinations Insight: + limited insight Judgment: + limited judgement Vital Signs (Past 24 Hours) Last Vital Signs Temp 36.5 C 01/19/25 06:34 Pulse 70 01/19/25 06:34 Resp 16 01/19/25 06:34 BP 115/84 01/19/25 06:35 Pulse Ox 95 01/19/25 06:34 O2 Del Method Room Air 01/19/25 06:34 Results & Data ([facility]) Laboratory Results Laboratory Results - last 24 hr 01/18/25 07:07 Vitamin B12 285 Current Inpatient Medications Current Inpatient Medications: Current Inpatient Medications Acetaminophen (Acetaminophen 325 Mg Tab) 650 mg PO Q4H PRN PRN Reason: Headache or Minor Fever Stop: 02/17/25 10:19 Al Hydrox/Mg Hydrox/Simethicone (Aluminum/Magnesium Susp 30 Ml Udc) 30 ml PO Q4H PRN PRN Reason: GI Upset Stop: 02/15/25 23:22 Aripiprazole (Aripiprazole 10 Mg Tab) 10 mg PO QAM [facility] Stop: 02/17/25 15:29 Last Admin: 01/18/25 17:18 Dose: 10 mg Bismuth Subsalicylate (Bismuth Subsalicylate 262 Mg Chew) 2 tab PO Q30M PRN PRN Reason: Loose Stool/Diarrhea Stop: 02/15/25 23:22 Cefdinir (Cefdinir 300 Mg Cap) 300 mg PO BID [facility]; Protocol Stop: 01/21/25 21:01 Last Admin: 01/18/25 20:34 Dose: 300 mg Duloxetine HCl (Duloxetine Hcl 60 Mg Cap) 60 mg PO QAM [facility] Stop: 02/16/25 08:59 Last Admin: 01/18/25 09:08 Dose: 60 mg Lorazepam (Lorazepam 1 Mg Tab) 1 mg PO Q6 PRN PRN Reason: Anxiety Stop: 02/15/25 23:21 Last Admin: 01/17/25 19:51 Dose: 1 mg Magnesium Hydroxide (Magnesium Hydroxide Susp 30 Ml Udc) 30 ml PO DAILY PRN PRN Reason: Constipation Stop: 02/15/25 23:22 Sodium Chloride (Sodium Chloride 0.65% Na Soln 45 Ml ([place])) 1 - 2 sprays NA PRN PRN PRN Reason: Nasal Dryness/Congestion Stop: 02/15/25 23:22 Mental Health & Subst Abuse Tx Psychiatrist Name of Psychiatrist: [facility] - Dr. Silva Psychiatrist's Therapist Name of Therapist: [facility] - Jazmin Hogan Therapist's Post Discharge Appointments Primary Care Physician Name Of Family Doctor/PCP: Gilberto Alvarado Primary Care Provider Appointment Comment: Follow up as needed Contact Information Discharge Discharge Address: [address] [place] [id number]
[2025-01-20] MEDS: ROSUVASTATIN CALCIUM 5 MG TAB PO SCH (08:49)
--- NOTE | 2025-01-20 09:14 | Psychiatric Progress Note ---
Date of Service January 20, 2025 Impression / Recommendations Impression MONICA ERWIN is a 54-year-old F who currently lives with brother, has a history of MDD with psychosis, psychogenic polydipsia, binge eating disorder, and was admitted on 01/16/25 22:03 on a 302 involuntary commitment for suicidal ideation with plan. Diagnostically consistent with unspecified psychosis and depression with differential including major depressive disorder with psychotic features vs schizoaffective disorder current depressed mood. Suspect higher liklihood for schizoaffective disorder, with later life onset, given multiple hospitalizations over the last year and limited improvement except with ECT. Seems she has very prominent negative symptoms. A: Ongoing depression and suspected prominent negative symptoms of schizophrenia with poor insight. Will continue with abilify titration, had some odd behaviors last evening which suggests ongoing psychosis and suspect this also contributes to thought blocking and sparse thought content. Overall, I spent a total of 35 minutes on this case including meeting with the patient, reviewing the chart, nursing report, multidisciplinary team meeting, orders, and documentation. (1) Depression with suicidal ideation: (2) Suicidal ideation: (3) Schizoaffective disorder: (4) Noncompliance with medications: (5) Urinary tract infection: Plan 01/20/2025: -Increase abilify to 15mg daily tomorrow 01/19/2025: -Start crestor 5mg daily 01/18/2025: -Discontinue cariprazine -Start Abilify 10mg daily -Consider crestor initiation if she consents -303 hearing tomorrow 01/17/2005:The patient was admitted to the [facility] ([facility] mental health unit) on q15 min checks (behavioral with suicide precautions) for safety. The patient will participate in group, recreational, and milieu therapies and will be offered additional individual and family sessions as clinically appropriate. -Continue Duloxetine 60mg daily -Increase Cariprazine to 6mg HS -Lorazepam 1mg Q6hr PRN for anxiety, insomnia -D/c home Adderall -Labs: A1c, fasting lipids, Vit D, Vit B12 Inventory Assets Strengths: family support, outpatient care connection Needs: improved insight, medication adherence Suicide Risk Level Suicide Risk Level: High-Moderate (q15 min suicide checks) (depression with SI with plan and actions (created noose) prior to admission but denies any plans in the hospital, feels able to ask staff for support and no command ) Risk Factors Assessment Male: No : Yes Do You Have Access To A Gun?: No Health Problems: No Mental Health Diagnoses: Yes Substance Use Disorders: No Previous Attempt: Yes Family History of Suicide: No Previous Psychiatric Hospitalization: Yes Hopelessness: Yes Protective Factors Assessment Mu-Ism Beliefs: No : No Responsible for Young Children: No Employed: No Stable Relationships: No Supportive Family: Yes Good Rapport with Provider: Yes Absence of Any Risk Factors Above: No Interval History Identifying Information MONICA ERWIN is a 54-year-old F who currently lives with brother, has a history of MDD with psychosis, schizoaffective disorder, psychogenic polydipsia, binge eating disorder, and was admitted on 01/16/25 22:03 on a 302 involuntary commitment for suicidal ideation with plan. Chief Complaint "Ok". Review of Systems Sleep Information Total Hours of Sleep: 11 Meal Information Percent Meal Consumed - Breakfast: 100 Percent Meal Consumed - Lunch: 100 Percent Meal Consumed - Dinner: 50 Subjective Subjective Patient was seen & assessed and interval progress reviewed with nursing and social work. Showered with extensive nursing encouragement. Not attending groups. Unusual behavior last evening of following staff around. Largely isolative to her room. Eating all of her meals. Slept 11 hours last evening. Today she reports sleeping "good" overnight. Reports her mood is "ok" but "just kind of bored". She denies SI today. Attended some groups today. Smiled briefly when I discussed cows that had escaped into the parking lot. She denies any medication side effects. Physical Exam Psychiatric Orientation: alert and oriented x 3 Apperance: appropriately dressed and + disheveled Eye Contact: + fair eye contact Motor Behavior: no abnormal motor movements Speech: normal rate/rhythm/volume of speech Affect: + constricted affect Mood: + depressed mood Thought Process: + concrete thought process Thought Content: + preoccupation Suicidal Thoughts: denies suicidal plan; + reports suicidal thoughts (denies today) Homicidal Thoughts: denies homicidal thoughts Hallucinations: no auditory hallucinations and no visual hallucinations Insight: + limited insight Judgment: + limited judgement Vital Signs (Past 24 Hours) Last Vital Signs Temp 36.2 C L 01/20/25 06:50 Pulse 65 01/20/25 06:50 Resp 16 01/20/25 06:50 BP 102/84 01/20/25 06:51 Pulse Ox 97 01/20/25 06:50 O2 Del Method Room Air 01/20/25 06:50 Results & Data ([facility]) Current Inpatient Medications Current Inpatient Medications: Current Inpatient Medications Acetaminophen (Acetaminophen 325 Mg Tab) 650 mg PO Q4H PRN PRN Reason: Headache or Minor Fever Stop: 02/17/25 10:19 Al Hydrox/Mg Hydrox/Simethicone (Aluminum/Magnesium Susp 30 Ml Udc) 30 ml PO Q4H PRN PRN Reason: GI Upset Stop: 02/15/25 23:22 Aripiprazole (Aripiprazole 10 Mg Tab) 10 mg PO QAM [facility] Stop: 02/17/25 15:29 Last Admin: 01/20/25 08:49 Dose: 10 mg Bismuth Subsalicylate (Bismuth Subsalicylate 262 Mg Chew) 2 tab PO Q30M PRN PRN Reason: Loose Stool/Diarrhea Stop: 02/15/25 23:22 Cefdinir (Cefdinir 300 Mg Cap) 300 mg PO BID [facility]; Protocol Stop: 01/21/25 21:01 Last Admin: 01/20/25 08:49 Dose: 300 mg Duloxetine HCl (Duloxetine Hcl 60 Mg Cap) 60 mg PO QAM [facility] Stop: 02/16/25 08:59 Last Admin: 01/20/25 08:49 Dose: 60 mg Lorazepam (Lorazepam 1 Mg Tab) 1 mg PO Q6 PRN PRN Reason: Anxiety Stop: 02/15/25 23:21 Last Admin: 01/17/25 19:51 Dose: 1 mg Magnesium Hydroxide (Magnesium Hydroxide Susp 30 Ml Udc) 30 ml PO DAILY PRN PRN Reason: Constipation Stop: 02/15/25 23:22 Rosuvastatin Calcium (Rosuvastatin Calcium 5 Mg Tab) 5 mg PO QAM [facility] Stop: 02/19/25 08:59 Last Admin: 01/20/25 08:49 Dose: 5 mg Sodium Chloride (Sodium Chloride 0.65% Na Soln 45 Ml ([place])) 1 - 2 sprays NA PRN PRN PRN Reason: Nasal Dryness/Congestion Stop: 02/15/25 23:22 Mental Health & Subst Abuse Tx Psychiatrist Name of Psychiatrist: [facility] - Dr. Silva Psychiatrist's Therapist Name of Therapist: [facility] - Jazmin Hogan Therapist's Post Discharge Appointments Primary Care Physician Name Of Family Doctor/PCP: Gilberto Alvarado Primary Care Provider Appointment Comment: Follow up as needed Contact Information Discharge Discharge Address: [address] [place] [id number]
[2025-01-21] MEDS: ARIPiprazole 15 MG TAB PO SCH (08:41)
--- NOTE | 2025-01-21 09:08 | Psychiatric Progress Note ---
Date of Service January 21, 2025 Impression / Recommendations Impression MONICA ERWIN is a 54-year-old F who currently lives with brother, has a history of MDD with psychosis, psychogenic polydipsia, binge eating disorder, and was admitted on 01/16/25 22:03 on a 302 involuntary commitment for suicidal ideation with plan. Diagnostically consistent with unspecified psychosis and depression with differential including major depressive disorder with psychotic features vs schizoaffective disorder current depressed mood. Suspect higher likelihood for schizoaffective disorder, with later life onset, given multiple hospitalizations over the last year and limited improvement except with ECT. Seems she has very prominent negative symptoms. A: Ongoing depression and suspected prominent negative symptoms of schizophrenia with poor insight. Tolerating higher dose of abilify. She is not interested in ECT, despite collateral it was very beneficial in the past. Will continue to explore this over time if she becomes more open to this. Overall, I spent a total of 36 minutes on this case including meeting with the patient, reviewing the chart, nursing report, orders, and documentation. (1) Depression with suicidal ideation: (2) Suicidal ideation: (3) Schizoaffective disorder: (4) Noncompliance with medications: (5) Urinary tract infection: Plan 01/21/2025: -Continue current medications and treatment plan 01/20/2025: -Increase abilify to 15mg daily tomorrow 01/19/2025: -Start crestor 5mg daily 01/18/2025: -Discontinue cariprazine -Start Abilify 10mg daily -Consider crestor initiation if she consents -303 hearing tomorrow 01/17/2005:The patient was admitted to the [facility] ([facility] mental health unit) on q15 min checks (behavioral with suicide precautions) for safety. The patient will participate in group, recreational, and milieu therapies and will be offered additional individual and family sessions as clinically appropriate. -Continue Duloxetine 60mg daily -Increase Cariprazine to 6mg HS -Lorazepam 1mg Q6hr PRN for anxiety, insomnia -D/c home Adderall -Labs: A1c, fasting lipids, Vit D, Vit B12 Inventory Assets Strengths: family support, outpatient care connection Needs: improved insight, medication adherence Suicide Risk Level Suicide Risk Level: High-Moderate (q15 min suicide checks) (depression with SI with plan and actions (created noose) prior to admission but denies any plans in the hospital, feels able to ask staff for support and no command ) Risk Factors Assessment Male: No : Yes Do You Have Access To A Gun?: No Health Problems: No Mental Health Diagnoses: Yes Substance Use Disorders: No Previous Attempt: Yes Family History of Suicide: No Previous Psychiatric Hospitalization: Yes Hopelessness: Yes Protective Factors Assessment Caodaism Beliefs: No : No Responsible for Young Children: No Employed: No Stable Relationships: No Supportive Family: Yes Good Rapport with Provider: Yes Absence of Any Risk Factors Above: No Interval History Identifying Information MONICA ERWIN is a 54-year-old F who currently lives with brother, has a history of MDD with psychosis, schizoaffective disorder, psychogenic polydipsia, binge eating disorder, and was admitted on 01/16/25 22:03 on a 302 involuntary commitment for suicidal ideation with plan. Chief Complaint "Good". Review of Systems Sleep Information Total Hours of Sleep: 8 Meal Information Percent Meal Consumed - Breakfast: 50 Percent Meal Consumed - Lunch: 50 Percent Meal Consumed - Dinner: 50 Subjective Subjective Patient was seen & assessed and interval progress reviewed. Attended a few groups yesterday. Slept well overnight. Mostly isolative to her room. States her mood is "good" but "bored". Spending most of the day in bed states she's just "lying there". But then denies SI. She attended one morning group. Tells me she's unwilling to consider ECT again as "I didn't like undergoing anesthesia". She denies any medication side effects. Hasn't spoken to her brother at all. Physical Exam Psychiatric Orientation: alert and oriented x 3 Apperance: appropriately dressed and + disheveled Eye Contact: + fair eye contact Motor Behavior: no abnormal motor movements Speech: normal rate/rhythm/volume of speech Affect: + constricted affect Mood: + depressed mood Thought Process: + concrete thought process Thought Content: + preoccupation Suicidal Thoughts: denies suicidal plan; + reports suicidal thoughts (denies today) Homicidal Thoughts: denies homicidal thoughts Hallucinations: no auditory hallucinations and no visual hallucinations Insight: + limited insight Judgment: + limited judgement Vital Signs (Past 24 Hours) Last Vital Signs Temp 37.0 C 01/21/25 06:34 Pulse 71 01/21/25 06:34 Resp 18 12/07/25 06:34 BP 108/77 01/21/25 06:35 Pulse Ox 97 01/21/25 06:34 O2 Del Method Room Air 01/21/25 06:34 Results & Data ([facility]) Current Inpatient Medications Current Inpatient Medications: Current Inpatient Medications Acetaminophen (Acetaminophen 325 Mg Tab) 650 mg PO Q4H PRN PRN Reason: Headache or Minor Fever Stop: 02/17/25 10:19 Al Hydrox/Mg Hydrox/Simethicone (Aluminum/Magnesium Susp 30 Ml Udc) 30 ml PO Q4H PRN PRN Reason: GI Upset Stop: 02/15/25 23:22 Aripiprazole (Aripiprazole 15 Mg Tab) [facility] Stop: 02/20/25 08:59 Last Admin: 01/21/25 08:41 Dose: 15 mg Bismuth Subsalicylate (Bismuth Subsalicylate 262 Mg Chew) 2 tab PO Q30M PRN PRN Reason: Loose Stool/Diarrhea Stop: 02/15/25 23:22 Cefdinir (Cefdinir 300 Mg Cap) 300 mg PO BID [facility]; Protocol Stop: 01/21/25 21:01 Last Admin: 01/21/25 08:41 Dose: 300 mg Duloxetine HCl (Duloxetine Hcl 60 Mg Cap) 60 [facility] Stop: 02/16/25 08:59 Last Admin: 01/21/25 08:41 Dose: 60 mg Lorazepam (Lorazepam 1 Mg Tab) 1 mg PO Q6 PRN PRN Reason: Anxiety Stop: 02/15/25 23:21 Last Admin: 01/17/25 19:51 Dose: 1 mg Magnesium Hydroxide (Magnesium Hydroxide Susp 30 Ml Udc) 30 ml PO DAILY PRN PRN Reason: Constipation Stop: 02/15/25 23:22 Rosuvastatin Calcium (Rosuvastatin Calcium 5 Mg Tab) 5 mg [facility] Stop: 02/19/25 08:59 Last Admin: 01/21/25 08:41 Dose: 5 mg Sodium Chloride (Sodium Chloride 0.65% Na Soln 45 Ml ([place])) 1 - 2 sprays NA PRN PRN PRN Reason: Nasal Dryness/Congestion Stop: 02/15/25 23:22 Mental Health & Subst Abuse Tx Psychiatrist Name of Psychiatrist: [facility] - Dr. Silva Psychiatrist's Therapist Name of Therapist: [facility] - Jazmin Hogan Therapist's Post Discharge Appointments Primary Care Physician Name Of Family Doctor/PCP: Gilberto Alvarado Primary Care Provider Appointment Comment: Follow up as needed Contact Information Discharge Discharge Address: [address] [place] [id number]
--- NOTE | 2025-01-22 08:58 | Psychiatric Progress Note ---
Date of Service January 22, 2025 Impression / Recommendations Impression RACHEL ERWIN is a 54-year-old F who currently lives with brother, has a history of MDD with psychosis, psychogenic polydipsia, binge eating disorder, and was admitted on 01/16/25 22:03 on a 302 involuntary commitment for suicidal ideation with plan. Diagnostically consistent with unspecified psychosis and depression with differential including major depressive disorder with psychotic features vs schizoaffective disorder current depressed mood. Suspect higher likelihood for schizoaffective disorder, with later life onset, given multiple hospitalizations over the last year and limited improvement except with ECT. Seems she has very prominent negative symptoms. A: Ongoing depression and suspected prominent negative symptoms of schizophrenia with poor insight and sparse thought content but attending more groups and walking at times in the mann. Exploring option for her to return her outpatient industrial psychology teacher provider vs need to find new psychiatric provider. We were informed by [facility] psychological clinic that her outpatient therapist is departing the clinic and they do not have someone else who can see her. Voicemail message left at [facility] psychological clinic requesting to speak with Dr. Tineo medical diagnostic radiographer about psychiatric care options post discharge as she has an existing treatment relationship with Deonna Silva. Overall, I spent a total of 38 minutes on this case including meeting with the patient, reviewing the chart, nursing report, orders, and documentation. (1) Depression with suicidal ideation: (2) Suicidal ideation: (3) Schizoaffective disorder: (4) Noncompliance with medications: (5) Urinary tract infection: Plan 01/22/2025: -Continue current medications and treatment plan 01/21/2025: -Continue current medications and treatment plan 01/20/2025: -Increase abilify to 15mg daily tomorrow 01/19/2025: -Start crestor 5mg daily 01/18/2025: -Discontinue cariprazine -Start Abilify 10mg daily -Consider crestor initiation if she consents -303 hearing tomorrow 01/17/2005:[facility]) on q15 min checks (behavioral with suicide precautions) for safety. The patient will participate in group, recreational, and milieu therapies and will be offered additional individual and family sessions as clinically appropriate. -Continue Duloxetine 60mg daily -Increase Cariprazine to 6mg HS -Lorazepam 1mg Q6hr PRN for anxiety, insomnia -D/c home Adderall -Labs: A1c, fasting lipids, Vit D, Vit B12 Inventory Assets Strengths: family support, outpatient care connection Needs: improved insight, medication adherence Suicide Risk Level Suicide Risk Level: High-Moderate (q15 min suicide checks) (depression with SI with plan and actions (created noose) prior to admission but denies any plans in the hospital, feels able to ask staff for support and no command AH) Risk Factors Assessment Male: No : Yes Do You Have Access To A Gun?: No Health Problems: No Mental Health Diagnoses: Yes Substance Use Disorders: No Previous Attempt: Yes Family History of Suicide: No Previous Psychiatric Hospitalization: Yes Hopelessness: Yes Protective Factors Assessment Gnosticist Beliefs: No : No Responsible for Young Children: No Employed: No Stable Relationships: No Supportive Family: Yes Good Rapport with Provider: Yes Absence of Any Risk Factors Above: No Interval History Identifying Information RACHEL ERWIN is a 54-year-old F who currently lives with brother, has a history of MDD with psychosis, schizoaffective disorder, psychogenic polydipsia, binge eating disorder, and was admitted on 01/16/25 22:03 on a 302 involuntary commitment for suicidal ideation with plan. Chief Complaint "I'm fine". Review of Systems Sleep Information Total Hours of Sleep: 8 Meal Information Percent Meal Consumed - Breakfast: 50 Percent Meal Consumed - Lunch: 50 Percent Meal Consumed - Dinner: 50 Subjective Subjective Patient was seen & assessed and interval progress reviewed with treatment team. Attending some groups. Today reports her mood is "I'm fine". She denies SI, attributes improvement to "it caused me to end up here". Attempted to process how being in the hospital has helped her SI versus caused her to feel worse and states being here is "the same" as being at home. States she made the noose because "just feeling discouraged about life" which when asked she expands to not liking her job. She cannot think of another job she'd like but agrees to ponder this. She is willing for a case mamager referral. She denies any medication side effects. She was not aware of [facility] psychological clinic not being able to see her anymore. Reviewed that we were told her therapist is leaving. Unclear why she cannot continue to see psychiatric provider, she consents to me discussing this with medical diagnostic radiographer for their clinic as Rachel would prefer to continue working with them. States she's been seeing Deonan Silva for about 6 months in person. Physical Exam Psychiatric Orientation: alert and oriented x 3 Apperance: appropriately dressed and + disheveled Eye Contact: + fair eye contact Motor Behavior: no abnormal motor movements Speech: normal rate/rhythm/volume of speech Affect: + constricted affect Mood: + depressed mood Thought Process: + concrete thought process Thought Content: reality based without delusions (sparse) Suicidal Thoughts: denies suicidal plan; + reports suicidal thoughts (intermittent, denies today) Homicidal Thoughts: denies homicidal thoughts Hallucinations: no auditory hallucinations and no visual hallucinations Insight: + limited insight Judgment: + limited judgement Vital Signs (Past 24 Hours) Last Vital Signs Temp 36.2 C L 01/22/25 06:22 Pulse 90 01/22/25 06:23 Resp 16 01/22/25 06:22 BP 93/62 L 01/22/25 06:23 Pulse Ox 97 01/21/25 06:34 O2 Del Method Room Air 01/21/25 06:34 Results & Data ([facility]) Current Inpatient Medications Current Inpatient Medications: Current Inpatient Medications Acetaminophen (Acetaminophen 325 Mg Tab) 650 mg PO Q4H PRN PRN Reason: Headache or Minor Fever Stop: 02/17/25 10:19 Al Hydrox/Mg Hydrox/Simethicone (Aluminum/Magnesium Susp 30 Ml Udc) 30 ml PO Q4H PRN PRN Reason: GI Upset Stop: 02/15/25 23:22 Aripiprazole (Aripiprazole 15 Mg Tab) 15 mg PO QAM COUNTS INCLUDE 234 BEDS AT THE [facility] Stop: 02/20/25 08:59 Last Admin: 01/22/25 08:52 Dose: 15 mg Bismuth Subsalicylate (Bismuth Subsalicylate 262 Mg Chew) 2 tab PO Q30M PRN PRN Reason: Loose Stool/Diarrhea Stop: 02/15/25 23:22 Duloxetine HCl (Duloxetine Hcl 60 Mg Cap) 60 mg PO QAM ANDRE Stop: 02/16/25 08:59 Last Admin: 01/22/25 08:52 Dose: 60 mg Lorazepam (Lorazepam 1 Mg Tab) 1 mg PO Q6 PRN PRN Reason: Anxiety Stop: 02/15/25 23:21 Last Admin: 01/17/25 19:51 Dose: 1 mg Magnesium Hydroxide (Magnesium Hydroxide Susp 30 Ml Udc) 30 ml PO DAILY PRN PRN Reason: Constipation Stop: 02/15/25 23:22 Rosuvastatin Calcium (Rosuvastatin Calcium 5 Mg Tab) 5 mg PO QAM ANDRE Stop: 02/19/25 08:59 Last Admin: 01/22/25 08:52 Dose: 5 mg Sodium Chloride (Sodium Chloride 0.65% Na Soln 45 Ml ([place])) 1 - 2 sprays NA PRN PRN PRN Reason: Nasal Dryness/Congestion Stop: 02/15/25 23:22 Mental Health & Subst Abuse Tx Psychiatrist Name of Psychiatrist: [facility] - Dr. Silva Psychiatrist's Therapist Name of Therapist: [facility] - Jazmin Hogan Therapist's Post Discharge Appointments Primary Care Physician Name Of Family Doctor/PCP: Gilberto Alvarado Primary Care Provider Appointment Comment: Follow up as needed Contact Information Discharge Discharge Address: [address] [place] [id number]
--- NOTE | 2025-01-23 09:06 | Psychiatric Progress Note ---
Date of Service January 23, 2025 Impression / Recommendations Impression MONICA ERWIN is a 54-year-old F who currently lives with brother, has a history of MDD with psychosis, psychogenic polydipsia, binge eating disorder, and was admitted on 01/16/25 22:03 on a 302 involuntary commitment for suicidal ideation with plan. Diagnostically consistent with unspecified psychosis and depression with differential including major depressive disorder with psychotic features vs schizoaffective disorder current depressed mood. Suspect higher likelihood for schizoaffective disorder, with later life onset, given multiple hospitalizations over the last year and limited improvement except with ECT. Seems she has very prominent negative symptoms. A: Ongoing depression and suspected prominent negative symptoms of schizophrenia with poor insight and sparse thought content but attending more groups and walking at times in the mann. Does have noticeable decrease in blinking frequency and moves slowly at times but eating well and no significant speech latency so low suspicion for catatonia but may consider brief ativan trial to determine if this offers any change in affect/interaction. She did offer her first observation of spontaneous topic. Overall, I spent a total of 35 minutes on this case including meeting with the patient, reviewing the chart, nursing report, orders, and documentation. (1) Depression with suicidal ideation: (2) Suicidal ideation: (3) Schizoaffective disorder: (4) Noncompliance with medications: (5) Urinary tract infection: Plan 01/23/2025: -Continue current medications and treatment plan 01/22/2025: -Continue current medications and treatment plan 01/21/2025: -Continue current medications and treatment plan 01/20/2025: -Increase abilify to 15mg daily tomorrow 01/19/2025: -Start crestor 5mg daily 01/18/2025: -Discontinue cariprazine -Start Abilify 10mg daily -Consider crestor initiation if she consents -303 hearing tomorrow 01/17/2005:[facility] on q15 min checks (behavioral with suicide precautions) for safety. The patient will participate in group, recreational, and milieu therapies and will be offered additional individual and family sessions as clinically appropriate. -Continue Duloxetine 60mg daily -Increase Cariprazine to 6mg HS -Lorazepam 1mg Q6hr PRN for anxiety, insomnia -D/c home Adderall -Labs: A1c, fasting lipids, Vit D, Vit B12 Inventory Assets Strengths: family support, outpatient care connection Needs: improved insight, medication adherence Suicide Risk Level Suicide Risk Level: High-Moderate (q15 min suicide checks) (depression with SI with plan and actions (created noose) prior to admission but denies any plans in the hospital, feels able to ask staff for support and no command AH) Risk Factors Assessment Male: No : Yes Do You Have Access To A Gun?: No Health Problems: No Mental Health Diagnoses: Yes Substance Use Disorders: No Previous Attempt: Yes Family History of Suicide: No Previous Psychiatric Hospitalization: Yes Hopelessness: Yes Protective Factors Assessment Sikhism Beliefs: No : No Responsible for Young Children: No Employed: No Stable Relationships: No Supportive Family: Yes Good Rapport with Provider: Yes Absence of Any Risk Factors Above: No Interval History Identifying Information MONICA ERWIN is a 54-year-old F who currently lives with brother, has a history of MDD with psychosis, schizoaffective disorder, psychogenic polydipsia, binge eating disorder, and was admitted on 01/16/25 22:03 on a 302 involuntary commitment for suicidal ideation with plan. Chief Complaint "Ok". Review of Systems Sleep Information Total Hours of Sleep: 9 Meal Information Percent Meal Consumed - Breakfast: 100 Percent Meal Consumed - Lunch: 50 Percent Meal Consumed - Dinner: 50 Subjective Subjective Patient was seen & assessed and interval progress reviewed with nursing and social work. Spent more time out of her room but doesn't interact with peers. Attending groups. Rated mood last evening as "5" and restless. Today rates her mood as "ok". Reviewed that she previously had a rehabilitation case coordinator and that reportedly she was discharged due to meeting her goals. She cannot recall how she was doing in the summer stating "I don't know". Does offer first spontaneous comment of information telling me: "I got mail from my aunt" and references a greeting card she received. She denies any medication side effects. Physical Exam Psychiatric Orientation: alert and oriented x 3 Apperance: appropriately dressed and + disheveled Eye Contact: + fair eye contact (blank stare at times with decreased blinking rate) Motor Behavior: no abnormal motor movements Speech: normal rate/rhythm/volume of speech Affect: + blunted affect Mood: + depressed mood Thought Process: + concrete thought process Thought Content: reality based without delusions (sparse) Suicidal Thoughts: denies suicidal plan; + reports suicidal thoughts (intermittent, denies today) Homicidal Thoughts: denies homicidal thoughts Hallucinations: no auditory hallucinations and no visual hallucinations Insight: + limited insight Judgment: + limited judgement Vital Signs (Past 24 Hours) Last Vital Signs Temp 36.3 C L 01/23/25 06:18 Pulse 77 01/23/25 06:19 Resp 16 01/23/25 06:18 BP 90/64 L 01/23/25 06:19 Pulse Ox 97 01/21/25 06:34 O2 Del Method Room Air 01/21/25 06:34 Results & Data ([facility]) Current Inpatient Medications Current Inpatient Medications: Current Inpatient Medications Acetaminophen (Acetaminophen 325 Mg Tab) 650 mg PO Q4H PRN PRN Reason: Headache or Minor Fever Stop: 02/17/25 10:19 Al Hydrox/Mg Hydrox/Simethicone (Aluminum/Magnesium Susp 30 Ml Udc) 30 ml PO Q4H PRN PRN Reason: GI Upset Stop: 02/15/25 23:22 Aripiprazole (Aripiprazole 15 Mg Tab) 15 mg PO QAM [facility] Stop: 02/20/25 08:59 Last Admin: 01/23/25 08:19 Dose: 15 mg Bismuth Subsalicylate (Bismuth Subsalicylate 262 Mg Chew) 2 tab PO Q30M PRN PRN Reason: Loose Stool/Diarrhea Stop: 02/15/25 23:22 Duloxetine HCl (Duloxetine Hcl 60 Mg Cap) [facility] Stop: 02/16/25 08:59 Last Admin: 01/23/25 08:19 Dose: 60 mg Lorazepam (Lorazepam 1 Mg Tab) 1 mg PO Q6 PRN PRN Reason: Anxiety Stop: 02/15/25 23:21 Last Admin: 01/17/25 19:51 Dose: 1 mg Magnesium Hydroxide (Magnesium Hydroxide Susp 30 Ml Udc) 30 ml PO DAILY PRN PRN Reason: Constipation Stop: 02/15/25 23:22 Rosuvastatin Calcium (Rosuvastatin Calcium 5 Mg Tab) 5 mg PO QAM [facility] Stop: 02/19/25 08:59 Last Admin: 01/23/25 08:19 Dose: 5 mg Sodium Chloride (Sodium Chloride 0.65% Na Soln 45 Ml ([place])) 1 - 2 sprays NA PRN PRN PRN Reason: Nasal Dryness/Congestion Stop: 02/15/25 23:22 Mental Health & Subst Abuse Tx Psychiatrist Name of Psychiatrist: [facility] - Dr. Silva Psychiatrist's Therapist Name of Therapist: [facility] - Jazmin Hogan Therapist's Post Discharge Appointments Primary Care Physician Name Of Family Doctor/PCP: Gilberto Alvarado Primary Care Provider Appointment Comment: Follow up as needed Pain Clinic Name of Pain Clinic: [facility] Phone Number for Pain Clinic: Date of Appointment with Pain Clinic: 02/13/25 Time of Appointment with Pain Clinic: 2pm Pain Clinic Appointment Comment: Telehealth appt. Rescheduled 01/23 collar turner Name of Specialist: [facility]-Dr. Sana Hernandez Phone Number for Specialist: Date of Appointment with Specialist: 02/21/25 Time of Appointment with Specialist: 1:20p Specialty Appointment Comment: Donna Melendez. Rescheduled 01/31 appointment Contact Information Discharge Discharge Address: [address] [place] [id number]
--- NOTE | 2025-01-24 08:36 | Psychiatric Progress Note ---
Date of Service January 24, 2025 Impression / Recommendations Impression MONICA ERWIN is a 54-year-old F who currently lives with brother, has a history of MDD with psychosis, psychogenic polydipsia, binge eating disorder, and was admitted on 01/16/25 22:03 on a 302 involuntary commitment for suicidal ideation with plan. Now on a 303 commitment which expires 02/08/2025. Diagnostically consistent with unspecified psychosis and depression with differential including major depressive disorder with psychotic features vs schizoaffective disorder current depressed mood. Suspect higher likelihood for schizoaffective disorder, with later life onset, given multiple hospitalizations over the last year and limited improvement except with ECT. Seems she has very prominent negative symptoms. A: Ongoing depression and suspected prominent negative symptoms of schizophrenia with poor insight and sparse thought content but attending more groups and walking at times in the mann. Ativan response caused sedation, inconsistent with catatonia. She is not interested in EAC and remains unwilling for ECT if it meant going to a different hospital. Today reports alternative driving factor for recent SI, will consult PT to help with potential benefit for back pain and recent Achilles injury. Overall, I spent a total of 38 minutes on this case including meeting with the patient, reviewing the chart, nursing report, orders, and documentation. (1) Depression with suicidal ideation: (2) Suicidal ideation: (3) Schizoaffective disorder: (4) Noncompliance with medications: (5) Urinary tract infection: Plan 01/24/2025: -Continue current medications and treatment plan 01/23/2025: -Continue current medications and treatment plan 01/22/2025: -Continue current medications and treatment plan 01/21/2025: -Continue current medications and treatment plan 01/20/2025: -Increase abilify to 15mg daily tomorrow 01/19/2025: -Start crestor 5mg daily 01/18/2025: -Discontinue cariprazine -Start Abilify 10mg daily -Consider crestor initiation if she consents -303 hearing tomorrow 01/17/2005:The patient was admitted to the [facility] ([facility] unit) on q15 min checks (behavioral with suicide precautions) for safety. The patient will participate in group, recreational, and milieu therapies and will be offered additional individual and family sessions as clinically appropriate. -Continue Duloxetine 60mg daily -Increase Cariprazine to 6mg HS -Lorazepam 1mg Q6hr PRN for anxiety, insomnia -D/c home Adderall -Labs: A1c, fasting lipids, Vit D, Vit B12 Inventory Assets Strengths: family support, outpatient care connection Needs: improved insight, medication adherence Suicide Risk Level Suicide Risk Level: High-Moderate (q15 min suicide checks) (depression with SI with plan and actions (created noose) prior to admission but denies any plans in the hospital, feels able to ask staff for support and no command ) Risk Factors Assessment Male: No : Yes Do You Have Access To A Gun?: No Health Problems: No Mental Health Diagnoses: Yes Substance Use Disorders: No Previous Attempt: Yes Family History of Suicide: No Previous Psychiatric Hospitalization: Yes Hopelessness: Yes Protective Factors Assessment Gnosticism Beliefs: No : No Responsible for Young Children: No Employed: No Stable Relationships: No Supportive Family: Yes Good Rapport with Provider: Yes Absence of Any Risk Factors Above: No Interval History Identifying Information MONICA ERWIN is a 54-year-old F who currently lives with brother, has a history of MDD with psychosis, schizoaffective disorder, psychogenic polydipsia, binge eating disorder, and was admitted on 01/16/25 22:03 on a 302 involuntary commitment for suicidal ideation with plan. Chief Complaint "Ok". Review of Systems Sleep Information Total Hours of Sleep: 10.5 Meal Information Percent Meal Consumed - Breakfast: 100 Percent Meal Consumed - Lunch: 100 Percent Meal Consumed - Dinner: 75 Subjective Subjective Patient was seen & assessed and interval progress reviewed with treatment team. Took a prn ativan last evening due to high anxiety. Then stayed in bed. Attended a few groups but still appears thought blocked, participates briefly. She reports her mood is "ok". Discussed potential for EAC to work on building up interests and socializing skills over time. She states if this is an option "I'd rather do ECT". Tells me this is because "I don't want to go to another hospital", we discuss that ECT would require going to another hospital. 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 She is agreeable to PT as she was doing this outpatient. She denies SI. She has dose of ativan last night and became very tired. She denies any medication side effects. Physical Exam Psychiatric Orientation: alert and oriented x 3 Apperance: appropriately dressed and + disheveled Eye Contact: + fair eye contact (blank stare at times with decreased blinking rate) Motor Behavior: no abnormal motor movements Speech: normal rate/rhythm/volume of speech Affect: + blunted affect Mood: + depressed mood Thought Process: + concrete thought process Thought Content: reality based without delusions (sparse) Suicidal Thoughts: denies suicidal plan; + reports suicidal thoughts (intermittent, denies today) Homicidal Thoughts: denies homicidal thoughts Hallucinations: no auditory hallucinations and no visual hallucinations Insight: + limited insight Judgment: + limited judgement Vital Signs (Past 24 Hours) Last Vital Signs Temp 36.3 C L 01/23/25 06:18 Pulse 73 01/24/25 06:42 Resp 18 01/24/25 06:42 BP 94/67 L 01/24/25 06:42 Pulse Ox 97 01/24/25 06:42 O2 Del Method Room Air 01/24/25 06:42 Results & Data ([facility]) Current Inpatient Medications Current Inpatient Medications: Current Inpatient Medications Acetaminophen (Acetaminophen 325 Mg Tab) 650 mg PO Q4H PRN PRN Reason: Headache or Minor Fever Stop: 02/17/25 10:19 Al Hydrox/Mg Hydrox/Simethicone (Aluminum/Magnesium Susp 30 Ml Udc) 30 ml PO Q4H PRN PRN Reason: GI Upset Stop: 02/15/25 23:22 Aripiprazole (Aripiprazole 15 Mg Tab) 15 mg PO QAM ANDRE Stop: 02/20/25 08:59 Last Admin: 01/23/25 08:19 Dose: 15 mg Bismuth Subsalicylate (Bismuth Subsalicylate 262 Mg Chew) 2 tab PO Q30M PRN PRN Reason: Loose Stool/Diarrhea Stop: 02/15/25 23:22 Duloxetine HCl (Duloxetine Hcl 60 Mg Cap) 60 mg PO QAM ANDRE Stop: 02/16/25 08:59 Last Admin: 01/23/25 08:19 Dose: 60 mg Lorazepam (Lorazepam 1 Mg Tab) 1 mg PO Q6 PRN PRN Reason: Anxiety Stop: 02/15/25 23:21 Last Admin: 01/23/25 17:46 Dose: 1 mg Magnesium Hydroxide (Magnesium Hydroxide Susp 30 Ml Udc) 30 ml PO DAILY PRN PRN Reason: Constipation Stop: 02/15/25 23:22 Rosuvastatin Calcium (Rosuvastatin Calcium 5 Mg Tab) 5 mg PO QAM ANDRE Stop: 02/19/25 08:59 Last Admin: 01/23/25 08:19 Dose: 5 mg Sodium Chloride (Sodium Chloride 0.65% Na Soln 45 Ml ([facility])) 1 - 2 sprays NA PRN PRN PRN Reason: Nasal Dryness/Congestion Stop: 02/15/25 23:22 Mental Health & Subst Abuse Tx Psychiatrist Name of Psychiatrist: [facility] - Dr. Silva Psychiatrist's Therapist Name of Therapist: [facility] - Jazmin Hogan Therapist's Post Discharge Appointments Primary Care Physician Name Of Family Doctor/PCP: Gilberto Alvarado Primary Care Provider Appointment Comment: Follow up as needed Pain Clinic Name of Pain Clinic: [facility] Phone Number for Pain Clinic: Date of Appointment with Pain Clinic: 02/13/25 Time of Appointment with Pain Clinic: 2pm Pain Clinic Appointment Comment: Telehealth appt. 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 Sana Hernandez Phone Number for Specialist: Date of Appointment with Specialist: 02/21/25 Time of Appointment with Specialist: 1:20p Specialty Appointment Comment: Donna Melendez. Rescheduled 01/31 appointment Contact Information Discharge Discharge Address: [address] [place] [id number]
--- NOTE | 2025-01-25 08:51 | Psychiatric Progress Note ---
Date of Service January 25, 2025 Impression / Recommendations Impression RACHEL ERWIN is a 54-year-old F who currently lives with brother, has a history of MDD with psychosis, psychogenic polydipsia, binge eating disorder, and was admitted on 01/16/25 22:03 on a 302 involuntary commitment for suicidal ideation with plan. Now on a 303 commitment which expires 02/08/2025. Diagnostically consistent with unspecified psychosis and depression with differential including major depressive disorder with psychotic features vs schizoaffective disorder current depressed mood. Suspect higher likelihood for schizoaffective disorder, with later life onset, given multiple hospitalizations over the last year and limited improvement except with ECT. Seems she has very prominent negative symptoms. A: Ongoing depression and suspected prominent negative symptoms of schizophrenia with poor insight and sparse thought content but attending more groups and spends time around peers though doesn't directly interact with them. Reviewed [facility] records of her ECT. She got 11 treatment sessions of bifrontal with reported subjective "60%" improvement. Spoke with Dr. Solano the clinical director of [facility]. Reviewed potential need for Rachel to have a bridge appointment if we cannot find her another local psychiatric provider within reasonable time of hospital discharge. She is agreeable to reviewing this option with the clinic provider and [facility] FORGER that Rachel was seeing if necessary. Reviewed concerns they had which were that Rachel would stop her medications. She has been hospitalized 4 times in the last year. No known history of an NIELESN. Possible history of outpatient commitment. Overall, I spent a total of 50 minutes on this case including meeting with the patient, reviewing the chart, nursing report, orders, and documentation and discussion with outpatient clinic. (1) Depression with suicidal ideation: (2) Suicidal ideation: (3) Schizoaffective disorder: (4) Noncompliance with medications: (5) Urinary tract infection: Plan 01/25/2025: -Continue current medications -Investigate possibility for ECT if she remains willing for this 01/24/2025: -Continue current medications and treatment plan 01/23/2025: -Continue current medications and treatment plan 01/22/2025: -Continue current medications and treatment plan 01/21/2025: -Continue current medications and treatment plan 01/20/2025: -Increase abilify to 15mg daily tomorrow 01/19/2025: -Start crestor 5mg daily 01/18/2025: -Discontinue cariprazine -Start Abilify 10mg daily -Consider crestor initiation if she consents -303 hearing tomorrow 01/17/2005:The patient was admitted to the [facility] ([facility] unit) on q15 min checks (behavioral with suicide precautions) for safety. The patient will participate in group, recreational, and milieu therapies and will be offered additional individual and family sessions as clinically appropriate. -Continue Duloxetine 60mg daily -Increase Cariprazine to 6mg HS -Lorazepam 1mg Q6hr PRN for anxiety, insomnia -D/c home Adderall -Labs: A1c, fasting lipids, Vit D, Vit B12 Inventory Assets Strengths: family support, outpatient care connection Needs: improved insight, medication adherence Suicide Risk Level Suicide Risk Level: High-Moderate (q15 min suicide checks) (depression with SI with plan and actions (created noose) prior to admission but denies any plans in the hospital, feels able to ask staff for support and no command AH) Risk Factors Assessment Male: No : Yes Do You Have Access To A Gun?: No Health Problems: No Mental Health Diagnoses: Yes Substance Use Disorders: No Previous Attempt: Yes Family History of Suicide: No Previous Psychiatric Hospitalization: Yes Hopelessness: Yes Protective Factors Assessment Baptism Beliefs: No : No Responsible for Young Children: No Employed: No Stable Relationships: No Supportive Family: Yes Good Rapport with Provider: Yes Absence of Any Risk Factors Above: No Interval History Identifying Information RACHEL ERWIN is a 54-year-old F who currently lives with brother, has a history of MDD with psychosis, schizoaffective disorder, psychogenic polydipsia, binge eating disorder, and was admitted on 01/16/25 22:03 on a 302 involuntary commitment for suicidal ideation with plan. Chief Complaint "Good". Review of Systems Sleep Information Total Hours of Sleep: 10.25 Meal Information Percent Meal Consumed - Breakfast: 100 Percent Meal Consumed - Lunch: 100 Percent Meal Consumed - Dinner: 50 Subjective Subjective Patient was seen & assessed and interval progress reviewed with nursing and social work. Isolative in the evening. She tried to attend community meeting but got up and left. Went to bed early and slept overnight and into the morning. States her mood is "good" today. Denies any medication side effects. Spoke with her brother yesterday and states she is now willing to potentially consider ECT "an an option". Tells me more about her job and that she was working 6am-2:30pm "6 days per week" but states she has "every other weekend off and most Wednesdays". Thinks she would benefit from and is improving her from "being on a regular schedule". She denies any SI. Physical Exam Psychiatric Orientation: alert and oriented x 3 Apperance: appropriately dressed and + disheveled Eye Contact: + fair eye contact (blank stare at times with decreased blinking rate) Motor Behavior: no abnormal motor movements Speech: normal rate/rhythm/volume of speech Affect: + blunted affect Mood: no depressed mood and no anxious mood Thought Process: + concrete thought process Thought Content: reality based without delusions (sparse) Suicidal Thoughts: denies suicidal plan; + reports suicidal thoughts (intermittent, denies today) Homicidal Thoughts: denies homicidal thoughts Hallucinations: no auditory hallucinations and no visual hallucinations Insight: + limited insight Judgment: + limited judgement Vital Signs (Past 24 Hours) Last Vital Signs Temp 36.6 C 01/25/25 06:36 Pulse 83 01/25/25 06:36 Resp 16 01/25/25 06:36 BP 116/85 01/25/25 06:38 Pulse Ox 97 01/25/25 06:36 O2 Del Method Room Air 01/25/25 06:36 Results & Data ([facility]) Current Inpatient Medications Current Inpatient Medications: Current Inpatient Medications Acetaminophen (Acetaminophen 325 Mg Tab) 650 mg PO Q4H PRN PRN Reason: Headache or Minor Fever Stop: 02/17/25 10:19 Al Hydrox/Mg Hydrox/Simethicone (Aluminum/Magnesium Susp 30 Ml Udc) 30 ml PO Q4H PRN PRN Reason: GI Upset Stop: 02/15/25 23:22 Aripiprazole (Aripiprazole 15 Mg Tab) 15 mg PO QAM ANDRE Stop: 02/20/25 08:59 Last Admin: 01/24/25 08:48 Dose: 15 mg Bismuth Subsalicylate (Bismuth Subsalicylate 262 Mg Chew) 2 tab PO Q30M PRN PRN Reason: Loose Stool/Diarrhea Stop: 02/15/25 23:22 Duloxetine HCl (Duloxetine Hcl 60 Mg Cap) 60 mg PO QAM ANDRE Stop: 02/16/25 08:59 Last Admin: 01/24/25 08:48 Dose: 60 mg Lorazepam (Lorazepam 1 Mg Tab) 1 mg PO Q6 PRN PRN Reason: Anxiety Stop: 02/15/25 23:21 Last Admin: 01/23/25 17:46 Dose: 1 mg Magnesium Hydroxide (Magnesium Hydroxide Susp 30 Ml Udc) 30 ml PO DAILY PRN PRN Reason: Constipation Stop: 02/15/25 23:22 Rosuvastatin Calcium (Rosuvastatin Calcium 5 Mg Tab) 5 mg PO QAM ANDRE Stop: 02/19/25 08:59 Last Admin: 01/24/25 08:48 Dose: 5 mg Sodium Chloride (Sodium Chloride 0.65% Na Soln 45 Ml ([facility])) 1 - 2 sprays NA PRN PRN PRN Reason: Nasal Dryness/Congestion Stop: 02/15/25 23:22 Mental Health & Subst Abuse Tx Psychiatrist Name of Psychiatrist: [facility] - Dr. Silva Psychiatrist's Therapist Name of Therapist: [facility] - Jazmin Hogan Therapist's Post Discharge Appointments Primary Care Physician Name Of Family Doctor/PCP: Gilberto Alvarado Primary Care Provider Appointment Comment: Follow up as needed Pain Clinic Name of Pain Clinic: [facility] Phone Number for Pain Clinic: Date of Appointment with Pain Clinic: 02/13/25 Time of Appointment with Pain Clinic: 2pm Pain Clinic Appointment Comment: Telehealth appt. 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 Sana Hernandez Phone Number for Specialist: Date of Appointment with Specialist: 02/21/25 Time of Appointment with Specialist: 1:20p Specialty Appointment Comment: Donna Melendez. Rescheduled 01/31 appointment Contact Information Discharge Discharge Address: [address] [place] [id number]
[2025-01-25 16:38] LABS: Amphetamine Urine, Confirm 10345 ng/mL (<250); MDA negative; MDEA negative; MDMA (Ecstasy) Urine, Confirm negative; Methamphetamine, Ur Confirm NEGATIVE ng/mL (<250)
--- NOTE | 2025-01-26 08:57 | Psychiatric Progress Note ---
Date of Service January 26, 2025 Impression / Recommendations Impression RACHEL ERWIN is a 54-year-old F who currently lives with brother, has a history of MDD with psychosis, psychogenic polydipsia, binge eating disorder, and was admitted on 01/16/25 22:03 on a 302 involuntary commitment for suicidal ideation with plan. Now on a 303 commitment which expires 02/08/2025. Diagnostically consistent with unspecified psychosis and depression with differential including major depressive disorder with psychotic features vs schizoaffective disorder current depressed mood. Suspect higher likelihood for schizoaffective disorder, with later life onset, given multiple hospitalizations over the last year and limited improvement except with ECT. Seems she has very prominent negative symptoms. A: Ongoing depression and suspected prominent negative symptoms of schizophrenia with poor insight and sparse thought content but attending more groups and spends time around peers though doesn't directly interact with them. Has not been showering regularly but did with prompting from staff. Her subjective report of depression seems to be improving with increased medication adherence. Overall, I spent a total of 55 minutes on this case including meeting with the patient, reviewing the chart, nursing report, orders, and documentation and completion of short-term disability paperwork. (1) Depression with suicidal ideation: (2) Suicidal ideation: (3) Schizoaffective disorder: (4) Noncompliance with medications: (5) Urinary tract infection: Plan 01/26/2025: -Continue current medications -Consider Abilify NIELSEN after family support meeting to get a sense of whether or not we are getting closer to Rachel's baseline 01/25/2025: -Continue current medications -Investigate possibility for ECT if she remains willing for this 01/24/2025: -Continue current medications and treatment plan 01/23/2025: -Continue current medications and treatment plan 01/22/2025: -Continue current medications and treatment plan 01/21/2025: -Continue current medications and treatment plan 01/20/2025: -Increase abilify to 15mg daily tomorrow 01/19/2025: -Start crestor 5mg daily 01/18/2025: -Discontinue cariprazine -Start Abilify 10mg daily -Consider crestor initiation if she consents -303 hearing tomorrow 01/17/2005:The patient was admitted to the [facility] (locked inpatient mental health unit) on q15 min checks (behavioral with suicide precautions) for safety. The patient will participate in group, recreational, and milieu therapies and will be offered additional individual and family sessions as clinically appropriate. -Continue Duloxetine 60mg daily -Increase Cariprazine to 6mg HS -Lorazepam 1mg Q6hr PRN for anxiety, insomnia -D/c home Adderall -Labs: A1c, fasting lipids, Vit D, Vit B12 Inventory Assets Strengths: family support, outpatient care connection Needs: improved insight, medication adherence Suicide Risk Level Suicide Risk Level: High-Moderate (q15 min suicide checks) (depression with SI with plan and actions (created noose) prior to admission but mood improving, denies SI and feels able to ask staff for support and no command AH) Risk Factors Assessment Male: No : Yes Do You Have Access To A Gun?: No Health Problems: No Mental Health Diagnoses: Yes Substance Use Disorders: No Previous Attempt: Yes Family History of Suicide: No Previous Psychiatric Hospitalization: Yes Hopelessness: Yes Protective Factors Assessment Mandaeism Beliefs: No : No Responsible for Young Children: No Employed: No Stable Relationships: No Supportive Family: Yes Good Rapport with Provider: Yes Absence of Any Risk Factors Above: No Interval History Identifying Information RACHEL ERWIN is a 54-year-old F who currently lives with brother, has a history of MDD with psychosis, schizoaffective disorder, psychogenic polydipsia, binge eating disorder, and was admitted on 01/16/25 22:03 on a 302 involuntary commitment for suicidal ideation with plan. Chief Complaint "Good". Review of Systems Sleep Information Total Hours of Sleep: 7.75 Meal Information Percent Meal Consumed - Breakfast: 100 Percent Meal Consumed - Lunch: 90 Percent Meal Consumed - Dinner: 100 Subjective Subjective Patient was seen & assessed and interval progress reviewed with treatment team. Attended self-awareness group but otherwise isolative until dinner and then went back to her room. Today reports her mood is "good" and denies SI. Cannot tell me when she last showered and seems slightly malodorous today but did agree to shower after staff encouragement mid-morning. She denies any medication side effects. Was standing near the unit door mid-morning watching staff going in and out. She denies any medication side effects-tells me she would prefer to get an Abilify NIELSEN then to do ECT and is willing to try Abilify NIELSEN. She worked with PT yesterday. Physical Exam Psychiatric Orientation: alert and oriented x 3 Apperance: appropriately dressed and + disheveled Eye Contact: + fair eye contact (blank stare at times with decreased blinking rate) Motor Behavior: no abnormal motor movements Speech: normal rate/rhythm/volume of speech Affect: + blunted affect Mood: no depressed mood and no anxious mood Thought Process: + concrete thought process Thought Content: reality based without delusions (sparse) Suicidal Thoughts: denies suicidal thoughts and denies suicidal plan Homicidal Thoughts: denies homicidal thoughts Hallucinations: no auditory hallucinations and no visual hallucinations Insight: + limited insight Judgment: + limited judgement Vital Signs (Past 24 Hours) Last Vital Signs Temp 36.1 C L 01/26/25 06:38 Pulse 83 01/25/25 06:36 Resp 16 01/26/25 06:38 BP 91/63 L 01/26/25 06:39 Pulse Ox 96 01/26/25 06:38 O2 Del Method Room Air 01/26/25 06:38 Results & Data ([facility]) Laboratory Results Laboratory Results - last 24 hr 01/16/25 19:40 U Amphetamines Confirm 30154 H U Methamphetamin Confrm NEGATIVE Urine MDEA negative MDMA negative Urine MDMA negative Drug Screen Comment SEE NOTE Current Inpatient Medications Current Inpatient Medications: Current Inpatient Medications Acetaminophen (Acetaminophen 325 Mg Tab) 650 mg PO Q4H PRN PRN Reason: Headache or Minor Fever Stop: 02/17/25 10:19 Al Hydrox/Mg Hydrox/Simethicone (Aluminum/Magnesium Susp 30 Ml Udc) 30 ml PO Q4H PRN PRN Reason: GI Upset Stop: 02/15/25 23:22 Aripiprazole (Aripiprazole 15 Mg Tab) 15 mg PO QAM ANDRE Stop: 02/20/25 08:59 Last Admin: 01/25/25 08:45 Dose: 15 mg Bismuth Subsalicylate (Bismuth Subsalicylate 262 Mg Chew) 2 tab PO Q30M PRN PRN Reason: Loose Stool/Diarrhea Stop: 02/15/25 23:22 Duloxetine HCl (Duloxetine Hcl 60 Mg Cap) 60 mg PO QAM ANDRE Stop: 02/16/25 08:59 Last Admin: 01/25/25 08:45 Dose: 60 mg Lorazepam (Lorazepam 1 Mg Tab) 1 mg PO Q6 PRN PRN Reason: Anxiety Stop: 02/15/25 23:21 Last Admin: 01/23/25 17:46 Dose: 1 mg Magnesium Hydroxide (Magnesium Hydroxide Susp 30 Ml Udc) 30 ml PO DAILY PRN PRN Reason: Constipation Stop: 02/15/25 23:22 Rosuvastatin Calcium (Rosuvastatin Calcium 5 Mg Tab) 5 mg PO QAM ANDRE Stop: 02/19/25 08:59 Last Admin: 01/25/25 08:45 Dose: 5 mg Sodium Chloride (Sodium Chloride 0.65% Na Soln 45 Ml ([place])) 1 - 2 sprays NA PRN PRN PRN Reason: Nasal Dryness/Congestion Stop: 02/15/25 23:22 Mental Health & Subst Abuse Tx Psychiatrist Name of Psychiatrist: [facility] - Dr. Silva Psychiatrist's Therapist Name of Therapist: [facility] - Jazmin Hogan Therapist's Post Discharge Appointments Primary Care Physician Name Of Family Doctor/PCP: Gilberto Alvarado Primary Care Provider Appointment Comment: Follow up as needed Pain Clinic Name of Pain Clinic: [facility] Phone Number for Pain Clinic: Date of Appointment with Pain Clinic: 02/13/25 Time of Appointment with Pain Clinic: 2pm Pain Clinic Appointment Comment: Telehealth appt. Rescheduled 01/23 ent physician Name of Specialist: [facility]-Dr. Sana Hernandez Phone Number for Specialist: Date of Appointment with Specialist: 02/21/25 Time of Appointment with Specialist: 1:20p Specialty Appointment Comment: Donna Melendez. Rescheduled 01/31 appointment Contact Information Discharge Discharge Address: [address] [place] [id number]
--- NOTE | 2025-01-27 09:00 | Psychiatric Progress Note ---
Date of Service January 27, 2025 Impression / Recommendations Impression RACHEL ERWIN is a 54-year-old F who currently lives with brother, has a history of MDD with psychosis, psychogenic polydipsia, binge eating disorder, and was admitted on 01/16/25 22:03 on a 302 involuntary commitment for suicidal ideation with plan. Now on a 303 commitment which expires 02/08/2025. Diagnostically consistent with unspecified psychosis and depression with differential including major depressive disorder with psychotic features vs schizoaffective disorder current depressed mood. Suspect higher likelihood for schizoaffective disorder, with later life onset, given multiple hospitalizations over the last year and limited improvement except with ECT. Seems she has very prominent negative symptoms. A: patient reports depression today, and hygiene is poor. Needs prompting for ADLs. Is excepting medications. She does report she would like to try a long- acting injection form of the Abilify. We are waiting on her brother's feedback of whether patient is getting close to baseline, before administering Abilify Asimptufii If we're not seeing enough improvement, may need to change to a different antipsychotic agent. Support meeting is scheduled for Wednesday. For the weekend, we are encouraging group participation and self-care. Overall, I spent a total of 38 minutes on this case including meeting with the patient, reviewing the chart, nursing report, orders, and documentation and completion of short-term disability paperwork. (1) Depression with suicidal ideation: (2) Suicidal ideation: (3) Schizoaffective disorder: (4) Noncompliance with medications: (5) Urinary tract infection: Plan 01/27/25: Continue current medications. Patient is agreeable to Abilify Asimptufii. 01/26/2025: -Continue current medications -Consider Abilify NIELSEN after family support meeting to get a sense of whether or not we are getting closer to Rachel's baseline 01/25/2025: -Continue current medications -Investigate possibility for ECT if she remains willing for this 01/24/2025: -Continue current medications and treatment plan 01/23/2025: -Continue current medications and treatment plan 01/22/2025: -Continue current medications and treatment plan 01/21/2025: -Continue current medications and treatment plan 01/20/2025: -Increase abilify to 15mg daily tomorrow 01/19/2025: -Start crestor 5mg daily 01/18/2025: -Discontinue cariprazine -Start Abilify 10mg daily -Consider crestor initiation if she consents -303 hearing tomorrow 01/17/2005:The patient was admitted to the [facility] on q15 min checks (behavioral with suicide precautions) for safety. The patient will participate in group, recreational, and milieu therapies and will be offered additional individual and family sessions as clinically appropriate. -Continue Duloxetine 60mg daily -Increase Cariprazine to 6mg HS -Lorazepam 1mg Q6hr PRN for anxiety, insomnia -D/c home Adderall -Labs: A1c, fasting lipids, Vit D, Vit B12 Inventory Assets Strengths: family support, outpatient care connection Needs: improved insight, medication adherence Suicide Risk Level Suicide Risk Level: High-Moderate (q15 min suicide checks) (depression with SI with plan and actions (created noose) prior to admission but mood improving, denies SI and feels able to ask staff for support and no command AH) Risk Factors Assessment Male: No : Yes Do You Have Access To A Gun?: No Health Problems: No Mental Health Diagnoses: Yes Substance Use Disorders: No Previous Attempt: Yes Family History of Suicide: No Previous Psychiatric Hospitalization: Yes Hopelessness: Yes Protective Factors Assessment Confucianist Beliefs: No : No Responsible for Young Children: No Employed: No Stable Relationships: No Supportive Family: Yes Good Rapport with Provider: Yes Absence of Any Risk Factors Above: No Interval History Identifying Information RACHEL ERWIN is a 54-year-old F who currently lives with brother, has a history of MDD with psychosis, schizoaffective disorder, psychogenic polydipsia, binge eating disorder, and was admitted on 01/16/25 22:03 on a 302 involuntary commitment for suicidal ideation with plan. Chief Complaint " I am feeling okay". Review of Systems Sleep Information Total Hours of Sleep: 8 Meal Information Percent Meal Consumed - Breakfast: 70 Percent Meal Consumed - Lunch: 100 Percent Meal Consumed - Dinner: 50 Subjective Subjective Patient was seen & assessed and interval progress reviewed with nursing and social work. per report: denying SI willing to consider ECT vs. NIELSEN attending groups mood 07/25 and nervous support mt wednesday eating well needs prompted to shower elopement precautions - ran towards door when staff exiting yesterday mouth checks going well I met with the patient privately in her room. She was still in bed sleeping. (It was midmorning by this point, and group was going on). She says she is feeling more depressed today, she is missing her dog. She says she did get up for breakfast though. She plans to attend groups later today. She said her energy has been improving and her thoughts are less intensely negative. However she is not experience any happy or positive emotions or affect so far. She does deny suicidal ideations today. she believes she is tolerating the Abilify well. She did reports she has jerking movements at night, but says this has been ongoing for months and has been present on several different medications. It has not been better or worse on Abilify. Denies tremor. No GI upset. No headaches or palpitations. Physical Exam Psychiatric Orientation: alert and oriented x 3 Apperance: + disheveled Eye Contact: + fair eye contact Would sometimes stare through Motor Behavior: steady gait and station and no abnormal motor movements; n tremor Speech: normal rate/rhythm/volume of speech latency of speech present at times Affect: + blunted affect Mood: + depressed mood Thought Process: linear/logical thought process a bit slowed Thought Content: reality based without delusions Suicidal Thoughts: denies suicidal thoughts, denies suicidal plan and denies suicidal intent Homicidal Thoughts: denies homicidal thoughts, denies homicidal plan and denies homicidal intent Hallucinations: no auditory hallucinations and no visual hallucinations denies Cognition: recent memory grossly intact, remote memory grossly intact and language grossly intact Estimated Intelligence: consistent with education level Insight: + limited insight Judgment: + limited judgement Vital Signs (Past 24 Hours) Last Vital Signs Temp 36.2 C L 01/27/25 06:16 Pulse 91 H 01/27/25 06:17 Resp 16 01/27/25 06:16 BP 91/68 L 01/27/25 06:17 Pulse Ox 96 01/26/25 06:38 O2 Del Method Room Air 01/26/25 06:38 Results & Data ([facility]) Current Inpatient Medications Current Inpatient Medications: Current Inpatient Medications Acetaminophen (Acetaminophen 325 Mg Tab) 650 mg PO Q4H PRN PRN Reason: Headache or Minor Fever Stop: 02/17/25 10:19 Al Hydrox/Mg Hydrox/Simethicone (Aluminum/Magnesium Susp 30 Ml Udc) 30 ml PO Q4H PRN PRN Reason: GI Upset Stop: 02/15/25 23:22 Aripiprazole (Aripiprazole 15 Mg Tab) 15 mg PO QAM ANDRE Stop: 02/20/25 08:59 Last Admin: 01/26/25 09:12 Dose: 15 mg Bismuth Subsalicylate (Bismuth Subsalicylate 262 Mg Chew) 2 tab PO Q30M PRN PRN Reason: Loose Stool/Diarrhea Stop: 02/15/25 23:22 Duloxetine HCl (Duloxetine Hcl 60 Mg Cap) 60 mg PO QAM ANDRE Stop: 02/16/25 08:59 Last Admin: 01/26/25 09:12 Dose: 60 mg Lorazepam (Lorazepam 1 Mg Tab) 1 mg PO Q6 PRN PRN Reason: Anxiety Stop: 02/15/25 23:21 Last Admin: 01/23/25 17:46 Dose: 1 mg Magnesium Hydroxide (Magnesium Hydroxide Susp 30 Ml Udc) 30 ml PO DAILY PRN PRN Reason: Constipation Stop: 02/15/25 23:22 Rosuvastatin Calcium (Rosuvastatin Calcium 5 Mg Tab) 5 mg PO QAM ANDRE Stop: 02/19/25 08:59 Last Admin: 01/26/25 09:12 Dose: 5 mg Sodium Chloride (Sodium Chloride 0.65% Na Soln 45 Ml ([place])) 1 - 2 sprays NA PRN PRN PRN Reason: Nasal Dryness/Congestion Stop: 02/15/25 23:22 Mental Health & Subst Abuse Tx Psychiatrist Name of Psychiatrist: Yue Grigsby - [address] [place] [address] [address], [place] [address] Psychiatrist's Date Of Appointment With Psychiatric Provider: 02/06/25 Time of Appointment with Psychiatrist: 11:05AM arrival for 11:20AM appt Psychiatric Appointment Comment: In person appt Therapist Name of Therapist: [facility] - Jazmin Hogan (Dr. Silva - psychiatrist) Therapist's Post Discharge Appointments Primary Care Physician Name Of Family Doctor/PCP: Gilberto Alvarado Primary Care Provider Appointment Comment: Follow up as needed Pain Clinic Name of Pain Clinic: [facility] Phone Number for Pain Clinic: Date of Appointment with Pain Clinic: 02/13/25 Time of Appointment with Pain Clinic: 2pm Pain Clinic Appointment Comment: Telehealth appt. Rescheduled 01/23 business management professor Name of Specialist: [facility] Sana Hernandez Phone Number for Specialist: Date of Appointment with Specialist: 02/21/25 Time of Appointment with Specialist: 1:20p Specialty Appointment Comment: Donna Melendez. Rescheduled 01/31 appointment Contact Information Discharge Discharge Address: [address] [place] [id number]
--- NOTE | 2025-01-28 09:42 | Psychiatric Progress Note ---
Date of Service January 28, 2025 Impression / Recommendations Impression RACHEL ERWIN is a 54-year-old F who currently lives with brother, has a history of MDD with psychosis, psychogenic polydipsia, binge eating disorder, and was admitted on 01/16/25 22:03 on a 302 involuntary commitment for suicidal ideation with plan. Now on a 303 commitment which expires 02/08/2025. Diagnostically consistent with unspecified psychosis and depression with differential including major depressive disorder with psychotic features vs schizoaffective disorder current depressed mood. Suspect higher likelihood for schizoaffective disorder, with later life onset, given multiple hospitalizations over the last year and limited improvement except with ECT. Seems she has very prominent negative symptoms. A: Discussed with patient behavioral goals of treatment. Staff will be working with her today to create a behavioral plan, which encourages initiation of hygiene tasks, getting out of her room and participating in activities. no medication changes today. Overall, I spent a total of 26 minutes on this case including meeting with the patient, reviewing the chart, nursing report, orders, and documentation and completion of short-term disability paperwork. (1) Depression with suicidal ideation: (2) Suicidal ideation: (3) Schizoaffective disorder: (4) Noncompliance with medications: (5) Urinary tract infection: Plan 01/28/25: Continue current medications. Initiating behavioral plan. 01/27/25: Continue current medications. Patient is agreeable to Abilify Asimptufii. 01/26/2025: -Continue current medications -Consider Abilify NIELSEN after family support meeting to get a sense of whether or not we are getting closer to Rachel's baseline 01/25/2025: -Continue current medications -Investigate possibility for ECT if she remains willing for this 01/24/2025: -Continue current medications and treatment plan 01/23/2025: -Continue current medications and treatment plan 01/22/2025: -Continue current medications and treatment plan 01/21/2025: -Continue current medications and treatment plan 01/20/2025: -Increase abilify to 15mg daily tomorrow 01/19/2025: -Start crestor 5mg daily 01/18/2025: -Discontinue cariprazine -Start Abilify 10mg daily -Consider crestor initiation if she consents -303 hearing tomorrow 01/17/2005:The patient was admitted to the [facility] on q15 min checks (behavioral with suicide precautions) for safety. The patient will participate in group, recreational, and milieu therapies and will be offered additional individual and family sessions as clinically appropriate. -Continue Duloxetine 60mg daily -Increase Cariprazine to 6mg HS -Lorazepam 1mg Q6hr PRN for anxiety, insomnia -D/c home Adderall -Labs: A1c, fasting lipids, Vit D, Vit B12 Inventory Assets Strengths: family support, outpatient care connection Needs: improved insight, medication adherence Suicide Risk Level Suicide Risk Level: High-Moderate (q15 min suicide checks) (depression with SI with plan and actions (created noose) prior to admission but mood improving, denies SI and feels able to ask staff for support and no command AH) Risk Factors Assessment Male: No : Yes Do You Have Access To A Gun?: No Health Problems: No Mental Health Diagnoses: Yes Substance Use Disorders: No Previous Attempt: Yes Family History of Suicide: No Previous Psychiatric Hospitalization: Yes Hopelessness: Yes Protective Factors Assessment Islam Beliefs: No : No Responsible for Young Children: No Employed: No Stable Relationships: No Supportive Family: Yes Good Rapport with Provider: Yes Absence of Any Risk Factors Above: No Interval History Identifying Information RACHEL ERWIN is a 54-year-old F who currently lives with brother, has a history of MDD with psychosis, schizoaffective disorder, psychogenic polydipsia, binge eating disorder, and was admitted on 01/16/25 22:03 on a 302 involuntary commitment for suicidal ideation with plan. Chief Complaint "[]". Review of Systems Sleep Information Total Hours of Sleep: 8.25 Meal Information Percent Meal Consumed - Breakfast: 70 Percent Meal Consumed - Lunch: 75 Percent Meal Consumed - Dinner: 10 Subjective Subjective Patient was seen & assessed and interval progress reviewed with nursing and social work Per report: Out of room more towards end of day; isolative until around dinnertime rated mood 4/10, feeling "anxious" attended music group and community meeting. did not contribute much, but showed affect and appeared to be listening. signed disability paperwork used PRN ativan around 6:40pm due to anxiety related to missing her dog sitting next to peers, but doesn't engage with them Needs prompted and walked to the shower in order to follow through with luis fernando bell. I met with the patient privately in her room. She says she is sleeping and eating well. She is feeling restless today and says she is looking forward to discharge. She feels that returning to work full-time will be most helpful for her. Reports that she struggles with having a very "full" mind, and says that she is constantly thinking of past mistakes and beating herself up for it. Also tends to relive past negative experiences in her mind. She says it makes her feel distracted, and not "in the present moment." She did not share what specific past experiences she is referring to. Discussed that she still needs a significant amount of prompting in order to attend to her ADLs. Also discussed her difficulties with creating the daytime structure for herself prior to admission here. Identified these as part of her treatment goals. She denied hallucinations. She denies suicidal ideation today. She says she is still feeling anxious and misses her dog. No tremor or abnormal movements. No GI distress. Denies any other side effects. Physical Exam Psychiatric Orientation: alert and oriented x 3 Apperance: appropriately dressed and + disheveled Eye Contact: + fair eye contact Stares at times Motor Behavior: steady gait and station and no abnormal motor movements; n tremor Speech: normal rate/rhythm/volume of speech Affect: + blunted affect Mood: + depressed mood and + anxious mood Thought Process: linear/logical thought process and + concrete thought process Thought Content: + preoccupation and reality based without delusions ?Delusional guilt (possible but not confirmed as delusional) Suicidal Thoughts: denies suicidal thoughts, denies suicidal plan and denies suicidal intent Homicidal Thoughts: denies homicidal thoughts, denies homicidal plan and denies homicidal intent Hallucinations: no auditory hallucinations and no visual hallucinations Cognition: recent memory grossly intact, remote memory grossly intact and language grossly intact Estimated Intelligence: consistent with education level Insight: + limited insight Judgment: + limited judgement Vital Signs (Past 24 Hours) Last Vital Signs Temp 36.0 C L 01/28/25 06:00 Pulse 98 H 01/28/25 06:01 Resp 18 01/28/25 06:00 BP 103/72 01/28/25 06:01 Pulse Ox 96 01/28/25 06:00 O2 Del Method Room Air 01/28/25 06:00 Results & Data ([facility]) Current Inpatient Medications Current Inpatient Medications: Current Inpatient Medications Acetaminophen (Acetaminophen 325 Mg Tab) 650 mg PO Q4H PRN PRN Reason: Headache or Minor Fever Stop: 02/17/25 10:19 Al Hydrox/Mg Hydrox/Simethicone (Aluminum/Magnesium Susp 30 Ml Udc) 30 ml PO Q4H PRN PRN Reason: GI Upset Stop: 02/15/25 23:22 Aripiprazole (Aripiprazole 15 Mg Tab) 15 mg PO QAM ANDRE Stop: 02/10/25 08:59 Last Admin: 01/27/25 09:01 Dose: 15 mg Bismuth Subsalicylate (Bismuth Subsalicylate 262 Mg Chew) 2 tab PO Q30M PRN PRN Reason: Loose Stool/Diarrhea Stop: 02/15/25 23:22 Duloxetine HCl (Duloxetine Hcl 60 Mg Cap) 60 mg PO QAM [facility] Stop: 02/16/25 08:59 Last Admin: 01/27/25 09:01 Dose: 60 mg Lorazepam (Lorazepam 1 Mg Tab) 1 mg PO Q6 PRN PRN Reason: Anxiety Stop: 02/15/25 23:21 Last Admin: 01/27/25 18:39 Dose: 1 mg Magnesium Hydroxide (Magnesium Hydroxide Susp 30 Ml Udc) 30 ml PO DAILY PRN PRN Reason: Constipation Stop: 02/15/25 23:22 Rosuvastatin Calcium (Rosuvastatin Calcium 5 Mg Tab) 5 mg PO QAM [facility] Stop: 02/19/25 08:59 Last Admin: 01/27/25 09:01 Dose: 5 mg Sodium Chloride (Sodium Chloride 0.65% Na Soln 45 Ml ([place])) 1 - 2 sprays NA PRN PRN PRN Reason: Nasal Dryness/Congestion Stop: 02/15/25 23:22 Mental Health & Subst Abuse Tx Psychiatrist Name of Psychiatrist: Yue Grigsby - [address], [place] [id number] Psychiatrist's Date Of Appointment With Psychiatric Provider: 02/06/25 Time of Appointment with Psychiatrist: 11:05AM arrival for 11:20AM appt Psychiatric Appointment Comment: In person appt Therapist Name of Therapist: [facility] - Jazmin Hogan (Dr. Silva - psychiatrist) Therapist's Post Discharge Appointments Primary Care Physician Name Of Family Doctor/PCP: Jose Luis-Dr. Alvarado Primary Care Provider Appointment Comment: Follow up as needed Pain Clinic Name of Pain Clinic: [facility] Phone Number for Pain Clinic: Date of Appointment with Pain Clinic: 02/13/25 Time of Appointment with Pain Clinic: 2pm Pain Clinic Appointment Comment: Telehealth appt. Rescheduled 01/23 pattern changer Name of Specialist: [facility]-Dr. Sana Hernandez Phone Number for Specialist: Date of Appointment with Specialist: 02/21/25 Time of Appointment with Specialist: 1:20p Specialty Appointment Comment: Donna Melendez. Rescheduled 01/31 appointment Contact Information Discharge Discharge Address: [address] [place] [id number]
--- NOTE | 2025-01-29 08:47 | Psychiatric Progress Note ---
Date of Service January 29, 2025 Impression / Recommendations Impression RACHEL ERWIN is a 54-year-old F who currently lives with brother, has a history of MDD with psychosis, psychogenic polydipsia, binge eating disorder, and was admitted on 01/16/25 22:03 on a 302 involuntary commitment for suicidal ideation with plan. Now on a 303 commitment which expires 02/08/2025. Diagnostically consistent with unspecified psychosis and depression with differential including major depressive disorder with psychotic features vs schizoaffective disorder current depressed mood. Suspect higher likelihood for schizoaffective disorder, with later life onset, given multiple hospitalizations over the last year and limited improvement except with ECT. Seems she has very prominent negative symptoms. A: patient appears to be more communicative and reflective. She is denying suicidal ideation. She is also today expressing wants and desires regarding her treatment. She advocated for medication for anxiety was able to describe some of the symptoms she associates with it. Things are improvements from admission. Things have not improved include: blunted affect, continued staring, needing prompting for showering/ADLs, minimal engagement in groups or with peers. In the family session today, were looking for some feedback from her brother about whether she seems to be approaching baseline. If so, then that would suggest the Abilify is it has been very helpful, and a reasonable plan would be to continue long-acting version of that, and have patient get on an outpatient commitment for adherence. If no improvement is reported by family who knows her, we may need to switch gears and pursue ECT, which was reportedly very helpful for her in the past. I am going to start BuSpar at patient's request, we will start at 5 mg twice daily today, and can increase if needed. Overall, I spent a total of 35 minutes on this case including meeting with the patient, reviewing the chart, interdisciplinary meeting, orders, and documentation. (1) Depression with suicidal ideation: (2) Suicidal ideation: (3) Schizoaffective disorder: (4) Noncompliance with medications: (5) Urinary tract infection: Plan 01/29/25: Start BuSpar 5 mg twice daily. Family meeting today. Developing behavioral plan. 01/28/25: Continue current medications. Initiating behavioral plan. 01/27/25: Continue current medications. Patient is agreeable to Abilify Asimptufii. 01/26/2025: -Continue current medications -Consider Abilify NIELSEN after family support meeting to get a sense of whether or not we are getting closer to Rachel's baseline 01/25/2025: -Continue current medications -Investigate possibility for ECT if she remains willing for this 01/24/2025: -Continue current medications and treatment plan 01/23/2025: -Continue current medications and treatment plan 01/22/2025: -Continue current medications and treatment plan 01/21/2025: -Continue current medications and treatment plan 01/20/2025: -Increase abilify to 15mg daily tomorrow 01/19/2025: -Start crestor 5mg daily 01/18/2025: -Discontinue cariprazine -Start Abilify 10mg daily -Consider crestor initiation if she consents -303 hearing tomorrow 01/17/2005:The patient was [facility] to the [facility] on q15 min checks (behavioral with suicide precautions) for safety. The patient will participate in group, recreational, and milieu therapies and will be offered additional individual and family sessions as clinically appropriate. -Continue Duloxetine 60mg daily -Increase Cariprazine to 6mg HS -Lorazepam 1mg Q6hr PRN for anxiety, insomnia -D/c home Adderall -Labs: A1c, fasting lipids, Vit D, Vit B12 Inventory Assets Strengths: family support, outpatient care connection Needs: improved insight, medication adherence Suicide Risk Level Suicide Risk Level: High-Moderate (q15 min suicide checks) (depression with SI with plan and actions (created noose) prior to admission but mood improving, denies SI and feels able to ask staff for support and no command ) Risk Factors Assessment Male: No : Yes Do You Have Access To A Gun?: No Health Problems: No Mental Health Diagnoses: Yes Substance Use Disorders: No Previous Attempt: Yes Family History of Suicide: No Previous Psychiatric Hospitalization: Yes Hopelessness: Yes Protective Factors Assessment Restoration Beliefs: No : No Responsible for Young Children: No Employed: No Stable Relationships: No Supportive Family: Yes Good Rapport with Provider: Yes Absence of Any Risk Factors Above: No Interval History Identifying Information RACHEL ERWIN is a 54-year-old F who currently lives with brother, has a history of MDD with psychosis, schizoaffective disorder, psychogenic polydipsia, binge eating disorder, and was admitted on 01/16/25 22:03 on a 302 involuntary commitment for suicidal ideation with plan. Review of Systems Sleep Information Total Hours of Sleep: 9 Meal Information Percent Meal Consumed - Breakfast: 0 Percent Meal Consumed - Lunch: 50 Percent Meal Consumed - Dinner: 90 Subjective Subjective Patient was seen & assessed and interval progress reviewed with treatment team per report: will work on behavioral plan today attended groups in the evening rated mood 5/10 and "relaxed" more active out of her room yesterday does not interact with peers, but will be in shared spaces on the unit good appetite slept well I met with the patient privately in her room. She says she is starting to feel better. Particularly, the depression is improving. She said "I am not thinking about suicide all the time." Clarified that she is not thinking of suicide at all. She continues to have some anxiety. Her main symptom is rumination. She often ruminates about the past, either wishing she could go back to happier times, or regretting certain decisions (such as quitting an old job that she liked better than her current job." She says Ativan as needed is helpful, and BuSpar has also been helpful for anxiety in the past. Discussed again developing a behavioral plan, and it is on the nurses schedule to help her with that today. Discussed aftercare planning. She continues to states she wants to avoid ECT if possible. She says she likes the Abilify and has been feeling better on it. She like to return to work when she is home. I expressed the concerns about whether she can manage her ADLs independently, and encouraged her to include that in her behavioral plan. Also encouraged to attend and participate in groups. She is aware she has a support meeting with her brother today. Physical Exam Psychiatric Orientation: alert and oriented x 3 Apperance: appropriately dressed and + disheveled Eye Contact: + fair eye contact Decreased blink rate, some staring Motor Behavior: steady gait and station and no abnormal motor movements; n tremor Speech: normal rate/rhythm/volume of speech Affect: + blunted affect Mood: + anxious mood Thought Process: linear/logical thought process and + concrete thought process Thought Content: + preoccupation and reality based without delusions Suicidal Thoughts: denies suicidal thoughts, denies suicidal plan and denies suicidal intent Homicidal Thoughts: denies homicidal thoughts, denies homicidal plan and denies homicidal intent Hallucinations: no auditory hallucinations and no visual hallucinations Cognition: recent memory grossly intact, remote memory grossly intact and martha guage grossly intact Estimated Intelligence: consistent with education level Insight: + fair insight Judgment: + fair judgement Vital Signs (Past 24 Hours) Last Vital Signs Temp 36.3 C L 01/29/25 06:11 Pulse 101 H 01/29/25 06:12 Resp 16 01/29/25 06:11 BP 91/66 L 01/29/25 06:12 Pulse Ox 96 01/28/25 06:00 O2 Del Method Room Air 01/28/25 06:00 Results & Data ([facility]) Current Inpatient Medications Current Inpatient Medications: Current Inpatient Medications Acetaminophen (Acetaminophen 325 Mg Tab) 650 mg PO Q4H PRN PRN Reason: Headache or Minor Fever Stop: 02/17/25 10:19 Al Hydrox/Mg Hydrox/Simethicone (Aluminum/Magnesium Susp 30 Ml Udc) 30 ml PO Q4H PRN PRN Reason: GI Upset Stop: 02/15/25 23:22 Aripiprazole (Aripiprazole 15 Mg Tab) [facility] Stop: 02/10/25 08:59 Last Admin: 01/28/25 09:45 Dose: 15 mg Bismuth Subsalicylate (Bismuth Subsalicylate 262 Mg Chew) 2 tab PO Q30M PRN PRN Reason: Loose Stool/Diarrhea Stop: 02/15/25 23:22 Duloxetine HCl (Duloxetine Hcl 60 Mg Cap) 60 [facility] [place] Stop: 02/16/25 08:59 Last Admin: 01/28/25 09:45 Dose: 60 mg Lorazepam (Lorazepam 1 Mg Tab) 1 mg PO Q6 PRN PRN Reason: Anxiety Stop: 02/15/25 23:21 Last Admin: 01/28/25 15:42 Dose: 1 mg Magnesium Hydroxide (Magnesium Hydroxide Susp 30 Ml Udc) 30 ml PO DAILY PRN PRN Reason: Constipation Stop: 02/15/25 23:22 Rosuvastatin Calcium (Rosuvastatin Calcium 5 Mg Tab) 5 mg [facility] [place] Stop: 02/19/25 08:59 Last Admin: 01/28/25 09:45 Dose: 5 mg Sodium Chloride (Sodium Chloride 0.65% Na Soln 45 Ml ([place])) 1 - 2 sprays NA PRN PRN PRN Reason: Nasal Dryness/Congestion Stop: 02/15/25 23:22 Mental Health & Subst Abuse Tx Psychiatrist Name of Psychiatrist: Yue Grigsby - [address] [email or web address] [address] [address] Psychiatrist's Date Of Appointment With Psychiatric Provider: 02/06/25 Time of Appointment with Psychiatrist: 11:05AM arrival for 11:20AM appt Psychiatric Appointment Comment: In person appt Therapist Name of Therapist: [facility] - Jazmin Hogan (Dr. Silva - psychiatrist) Therapist's Post Discharge Appointments Primary Care Physician Name Of Family Doctor/PCP: Jose Luis-Dr. Alvarado Primary Care Provider Appointment Comment: Follow up as needed Pain Clinic Name of Pain Clinic: [facility] Phone Number for Pain Clinic: Date of Appointment with Pain Clinic: 02/13/25 Time of Appointment with Pain Clinic: 2pm Pain Clinic Appointment Comment: Telehealth appt. Rescheduled 01/23 industrial analyst Name of Specialist: [facility]-Dr. Sana Hernandez Phone Number for Specialist: Date of Appointment with Specialist: 02/21/25 Time of Appointment with Specialist: 1:20p Specialty Appointment Comment: Donna Melendez. Rescheduled 01/31 appointment Contact Information Discharge Discharge Address: [address] [place] [id number]
--- NOTE | 2025-01-30 08:51 | Psychiatric Progress Note ---
Date of Service January 30, 2025 Impression / Recommendations Impression RACHEL ERWIN is a 54-year-old F who currently lives with brother, has a history of MDD with psychosis, psychogenic polydipsia, binge eating disorder, and was admitted on 01/16/25 22:03 on a 302 involuntary commitment for suicidal ideation with plan. Now on a 303 commitment which expires 02/08/2025. Diagnostically consistent with unspecified psychosis and depression with differential including major depressive disorder with psychotic features vs schizoaffective disorder current depressed mood. Suspect higher likelihood for schizoaffective disorder, with later life onset, given multiple hospitalizations over the last year and limited improvement except with ECT. Seems she has very prominent negative symptoms. A: I ordered Abilify Maintena (patient preferred Asimptufii, but is not available on formulary here per pharmacy). Also looks like BuSpar was not ordered yesterday, so I did order it today but we decided to give 10 mg 3 times daily, since she is tolerating it well past. Also reiterated behavioral plan. Gave communication order that it is okay for patient to trim her nails with supervision. initiated paperwork for outpatient commitment in anticipation of discharge early next week. Overall, I spent a total of 40 minutes on this case including meeting with the patient, reviewing the chart, interdisciplinary meeting, orders, and documentation. (1) Depression with suicidal ideation: (2) Suicidal ideation: (3) Schizoaffective disorder: (4) Noncompliance with medications: (5) Urinary tract infection: Plan 01/30/25: Start BuSpar 10 mg 3 times daily. Start Abilify Maintena 400 mg IM every 30 days, first dose today. Petitioning for outpatient commitment. 01/29/25: Start BuSpar 5 mg twice daily. Family meeting today. Developing behavioral plan. 01/28/25: Continue current medications. Initiating behavioral plan. 01/27/25: Continue current medications. Patient is agreeable to Abilify Asimptufii. 01/26/2025: -Continue current medications -Consider Abilify NIELSEN after family support meeting to get a sense of whether or not we are getting closer to Rachel's baseline 01/25/2025: -Continue current medications -Investigate possibility for ECT if she remains willing for this 01/24/2025: -Continue current medications and treatment plan 01/23/2025: -Continue current medications and treatment plan 01/22/2025: -Continue current medications and treatment plan 01/21/2025: -Continue current medications and treatment plan 01/20/2025: -Increase abilify to 15mg daily tomorrow 01/19/2025: -Start crestor 5mg daily 01/18/2025: -Discontinue cariprazine -Start Abilify 10mg daily -Consider crestor initiation if she consents -303 hearing tomorrow 01/17/2005:The patient was admitted to the [facility] on q15 min checks (behavioral with suicide precautions) for safety. The patient will participate in group, recreational, and milieu therapies and will be offered additional individual and family sessions as clinically appropriate. -Continue Duloxetine 60mg daily -Increase Cariprazine to 6mg HS -Lorazepam 1mg Q6hr PRN for anxiety, insomnia -D/c home Adderall -Labs: A1c, fasting lipids, Vit D, Vit B12 Inventory Assets Strengths: family support, outpatient care connection Needs: improved insight, medication adherence Suicide Risk Level Suicide Risk Level: High-Moderate (q15 min suicide checks) (depression with SI with plan and actions (created noose) prior to admission but mood improving, denies SI and feels able to ask staff for support and no command AH) Risk Factors Assessment Male: No : Yes Do You Have Access To A Gun?: No Health Problems: No Mental Health Diagnoses: Yes Substance Use Disorders: No Previous Attempt: Yes Family History of Suicide: No Previous Psychiatric Hospitalization: Yes Hopelessness: Yes Protective Factors Assessment Adventism Beliefs: No : No Responsible for Young Children: No Employed: No Stable Relationships: No Supportive Family: Yes Good Rapport with Provider: Yes Absence of Any Risk Factors Above: No Interval History Identifying Information RACHEL ERWIN is a 54-year-old F who currently lives with brother, has a history of MDD with psychosis, schizoaffective disorder, psychogenic polydipsia, binge eating disorder, and was admitted on 01/16/25 22:03 on a 302 involuntary commitment for suicidal ideation with plan. Chief Complaint "Anxious". Review of Systems Sleep Information Total Hours of Sleep: 8 Meal Information Percent Meal Consumed - Breakfast: 100 Percent Meal Consumed - Lunch: 50 Percent Meal Consumed - Dinner: 80 Subjective Subjective Patient was seen & assessed and interval progress reviewed with nursing and social work. Per report: gave prompt in AM to shower - then did shower later without further prompting mood 5/10 and feeling "anxious" requested ativan in evening for "anxious about everything" slept 8 hours I met with the patient privately in her room. She said "I do not think I can tolerate that Ativan." She feels sedated all morning, after having taken it last night for anxiety. She says she remains "a little" depressed, but it has improved from admission. Denies suicidal ideation. Denies paranoia. No auditory visual hallucinations. She also not having any tremor or other side effects to medication. Discussed her family meeting, and the plan to get her on a long-acting injection, and increased outpatient support. Discussed again the risks and benefits of the injection, and patient continues to be interested in that option. She also request to get her nails trimmed. Reiterated that would like to see her being more self-directed with her ADLs and engaged in the milieu. Physical Exam Psychiatric Orientation: alert and oriented x 3 Apperance: + disheveled Eye Contact: + fair eye contact Motor Behavior: steady gait and station and no abnormal motor movements; n tremor Speech: normal rate/rhythm/volume of speech Affect: + blunted affect Mood: + depressed mood and + anxious mood Thought Process: linear/logical thought process and + concrete thought process Thought Content: + preoccupation and reality based without delusions Suicidal Thoughts: denies suicidal thoughts, denies suicidal plan and denies suicidal intent Homicidal Thoughts: denies homicidal thoughts, denies homicidal plan and denies homicidal intent Hallucinations: no auditory hallucinations and no visual hallucinations Cognition: recent memory grossly intact, remote memory grossly intact and language grossly intact Estimated Intelligence: consistent with education level Insight: + fair insight Judgment: + fair judgement Vital Signs (Past 24 Hours) Last Vital Signs Temp 36.6 C 01/30/25 06:29 Pulse 73 01/30/25 06:29 Resp 16 01/30/25 06:29 BP 116/76 01/30/25 06:31 Pulse Ox 94 01/30/25 06:29 O2 Del Method Room Air 01/30/25 06:29 Results & Data ([facility]) Current Inpatient Medications Current Inpatient Medications: Current Inpatient Medications Acetaminophen (Acetaminophen 325 Mg Tab) 650 mg PO Q4H PRN PRN Reason: Headache or Minor Fever Stop: 02/17/25 10:19 Al Hydrox/Mg Hydrox/Simethicone (Aluminum/Magnesium Susp 30 Ml Udc) 30 ml PO Q4H PRN PRN Reason: GI Upset Stop: 02/15/25 23:22 Aripiprazole (Aripiprazole 15 Mg Tab) 15 mg PO QAM ANDRE Stop: 02/10/25 08:59 Last Admin: 01/29/25 09:25 Dose: 15 mg Bismuth Subsalicylate (Bismuth Subsalicylate 262 Mg Chew) 2 tab PO Q30M PRN PRN Reason: Loose Stool/Diarrhea Stop: 02/15/25 23:22 Duloxetine HCl (Duloxetine Hcl 60 Mg Cap) 60 mg PO QAM [facility] Stop: 02/16/25 08:59 Last Admin: 01/29/25 09:28 Dose: 60 mg Lorazepam (Lorazepam 1 Mg Tab) 1 mg PO Q6 PRN PRN Reason: Anxiety Stop: 02/15/25 23:21 Last Admin: 01/29/25 17:49 Dose: 1 mg Magnesium Hydroxide (Magnesium Hydroxide Susp 30 Ml Udc) 30 ml PO DAILY PRN PRN Reason: Constipation Stop: 02/15/25 23:22 Rosuvastatin Calcium (Rosuvastatin Calcium 5 Mg Tab) 5 mg PO QAM [facility] Stop: 02/19/25 08:59 Last Admin: 01/29/25 09:28 Dose: 5 mg Sodium Chloride (Sodium Chloride 0.65% Na Soln 45 Ml ([place])) 1 - 2 sprays NA PRN PRN PRN Reason: Nasal Dryness/Congestion Stop: 02/15/25 23:22 Mental Health & Subst Abuse Tx Psychiatrist Name of Psychiatrist: Yue Grigsby - [address] [place] [address] [address], [place] [address] Psychiatrist's Date Of Appointment With Psychiatric Provider: 02/06/25 Time of Appointment with Psychiatrist: 11:05AM arrival for 11:20AM appt Psychiatric Appointment Comment: In person appt Therapist Name of Therapist: [facility] - Jazmin Hogan (Dr. Silva - psychiatrist) Therapist's Post Discharge Appointments Primary Care Physician Name Of Family Doctor/PCP: [facility]. Alvarado Primary Care Provider Appointment Comment: Follow up as needed Pain Clinic Name of Pain Clinic: [facility] Phone Number for Pain Clinic: Date of Appointment with Pain Clinic: 02/13/25 Time of Appointment with Pain Clinic: 2pm Pain Clinic Appointment Comment: Telehealth appt. Rescheduled 01/23 under cutter Name of Specialist: [facility]-Dr. Sana Hernandez Phone Number for Specialist: Date of Appointment with Specialist: 02/21/25 Time of Appointment with Specialist: 1:20p Specialty Appointment Comment: Donna Melendez. Rescheduled 01/31 appointment Contact Information Discharge Discharge Address: [address] [place] [id number]
[2025-01-30] MEDS ORDERED: busPIRone 5 MG TAB PO PRN (14:19)
[2025-01-30] MEDS: busPIRone 5 MG TAB PO SCH (20:13)
--- NOTE | 2025-01-31 08:43 | Psychiatric Progress Note ---
Date of Service January 31, 2025 Impression / Recommendations Impression RACHEL ERWIN is a 54-year-old F who currently lives with brother, has a history of MDD with psychosis, psychogenic polydipsia, binge eating disorder, and was admitted on 01/16/25 22:03 on a 302 involuntary commitment for suicidal ideation with plan. Now on a 303 commitment which expires 02/08/2025. Diagnostically consistent with unspecified psychosis and depression with differential including major depressive disorder with psychotic features vs schizoaffective disorder current depressed mood. Suspect higher likelihood for schizoaffective disorder, with later life onset, given multiple hospitalizations over the last year and limited improvement except with ECT. Seems she has very prominent negative symptoms. A: Maintena given yesterday. Encouraged participation in behavioral plan, being more active and out of the room today. Also encouraged ADLs. Overall, I spent a total of 26 minutes on this case including meeting with the patient, reviewing the chart, interdisciplinary meeting, orders, and documentation. (1) Depression with suicidal ideation: (2) Suicidal ideation: (3) Schizoaffective disorder: (4) Noncompliance with medications: (5) Urinary tract infection: Plan 01/31/25: Continue current meds and treatment plan plan 01/30/25: Start BuSpar 10 mg 3 times daily. Start Abilify Maintena 400 mg IM every 30 days, first dose today. Petitioning for outpatient commitment. 01/29/25: Start BuSpar 5 mg twice daily. Family meeting today. Developing behavioral plan. 01/28/25: Continue current medications. Initiating behavioral plan. 01/27/25: Continue current medications. Patient is agreeable to Abilify Asimptufii. 01/26/2025: -Continue current medications -Consider Abilify NIELSEN after family support meeting to get a sense of whether or not we are getting closer to Rachel's baseline 01/25/2025: -Continue current medications -Investigate possibility for ECT if she remains willing for this 01/24/2025: -Continue current medications and treatment plan 01/23/2025: -Continue current medications and treatment plan 01/22/2025: -Continue current medications and treatment plan 01/21/2025: -Continue current medications and treatment plan 01/20/2025: -Increase abilify to 15mg daily tomorrow 01/19/2025: -Start crestor 5mg daily 01/18/2025: -Discontinue cariprazine -Start Abilify 10mg daily -Consider crestor initiation if she consents -303 hearing tomorrow 01/17/2005:The patient was admitted to the [facility] on q15 min checks (behavioral with suicide precautions) for safety. The patient will participate in group, recreational, and milieu therapies and will be offered additional individual and family sessions as clinically appropriate. -Continue Duloxetine 60mg daily -Increase Cariprazine to 6mg HS -Lorazepam 1mg Q6hr PRN for anxiety, insomnia -D/c home Adderall -Labs: A1c, fasting lipids, Vit D, Vit B12 Inventory Assets Strengths: family support, outpatient care connection Needs: improved insight, medication adherence Suicide Risk Level Suicide Risk Level: High-Moderate (q15 min suicide checks) (depression with SI with plan and actions (created noose) prior to admission but mood improving, denies SI and feels able to ask staff for support and no command AH) Risk Factors Assessment Male: No : Yes Do You Have Access To A Gun?: No Health Problems: No Mental Health Diagnoses: Yes Substance Use Disorders: No Previous Attempt: Yes Family History of Suicide: No Previous Psychiatric Hospitalization: Yes Hopelessness: Yes Protective Factors Assessment Quaker Beliefs: No : No Responsible for Young Children: No Employed: No Stable Relationships: No Supportive Family: Yes Good Rapport with Provider: Yes Absence of Any Risk Factors Above: No Interval History Identifying Information RACHEL ERWIN is a 54-year-old F who currently lives with brother, has a history of MDD with psychosis, schizoaffective disorder, psychogenic polydipsia, binge eating disorder, and was admitted on 01/16/25 22:03 on a 302 involuntary commitment for suicidal ideation with plan. Chief Complaint "[]". Review of Systems Sleep Information Total Hours of Sleep: 10 Meal Information Percent Meal Consumed - Breakfast: 25 Percent Meal Consumed - Lunch: 50 Percent Meal Consumed - Dinner: 100 Subjective Subjective Patient was seen & assessed and interval progress reviewed with treatment team per report: anxious, asked for PRN and chose ativan then stayed in room and was sleeping most of the evening. isolative to room yesterday blunted thought blocked prompted to shower in AM, then did later attended AM groups. I met with the patient privately in her room. She reports anxiety today is "okay". And mood is "pretty good." She says she feels "just tired." Attributed this to the Ativan. Discussed decreasing Ativan or avoiding it altogether. She said without prompting "I we will try the BuSpar next time." She denied any auditory visual hallucinations. No suicidal thoughts. Also denied any physical complications or side effects. No notable tremor or EPS. Physical Exam Psychiatric Orientation: alert and oriented x 3 Apperance: + disheveled Eye Contact: + fair eye contact Motor Behavior: steady gait and station and no abnormal motor movements; n tremor Speech: normal rate/rhythm/volume of speech Affect: + blunted affect Mood: + anxious mood Thought Process: linear/logical thought process and + concrete thought process Thought Content: + preoccupation and reality based without delusions Suicidal Thoughts: denies suicidal thoughts, denies suicidal plan and denies suicidal intent Homicidal Thoughts: denies homicidal thoughts, denies homicidal plan and denies homicidal intent Hallucinations: no auditory hallucinations and no visual hallucinations Cognition: recent memory grossly intact, remote memory grossly intact and language grossly intact Estimated Intelligence: consistent with education level Insight: + fair insight Judgment: + fair judgement Vital Signs (Past 24 Hours) Last Vital Signs Temp 36.7 C 01/31/25 06:22 Pulse 73 01/31/25 06:22 Resp 16 01/31/25 06:22 BP 87/59 L 01/31/25 06:24 Pulse Ox 95 01/31/25 06:22 O2 Del Method Room Air 01/31/25 06:22 Results & Data ([facility]) Current Inpatient Medications Current Inpatient Medications: Current Inpatient Medications Acetaminophen (Acetaminophen 325 Mg Tab) 650 mg PO Q4H PRN PRN Reason: Headache or Minor Fever Stop: 02/17/25 10:19 Al Hydrox/Mg Hydrox/Simethicone (Aluminum/Magnesium Susp 30 Ml Udc) 30 ml PO Q4H PRN PRN Reason: GI Upset Stop: 02/15/25 23:22 Aripiprazole (Aripiprazole 15 Mg Tab) 15 mg PO QAM ANDRE Stop: 02/10/25 08:59 Last Admin: 01/30/25 09:33 Dose: 15 mg Bismuth Subsalicylate (Bismuth Subsalicylate 262 Mg Chew) 2 tab PO Q30M PRN PRN Reason: Loose Stool/Diarrhea Stop: 02/15/25 23:22 Buspirone HCl (Buspirone 5 Mg Tab) 10 mg PO TID ANDRE Stop: 03/01/25 20:59 Last Admin: 01/30/25 20:13 Dose: 10 mg Buspirone HCl (Buspirone 5 Mg Tab) 10 mg PO TID PRN PRN Reason: breakthrough anxiety Stop: 03/01/25 20:59 Duloxetine HCl (Duloxetine Hcl 60 Mg Cap) 60 mg PO QAM ANDRE Stop: 02/16/25 08:59 Last Admin: 01/30/25 09:33 Dose: 60 mg Lorazepam (Lorazepam 1 Mg Tab) 1 mg PO Q6 PRN PRN Reason: Anxiety Stop: 02/15/25 23:21 Last Admin: 01/30/25 18:32 Dose: 1 mg Magnesium Hydroxide (Magnesium Hydroxide Susp 30 Ml Udc) 30 ml PO DAILY PRN PRN Reason: Constipation Stop: 02/15/25 23:22 Rosuvastatin Calcium (Rosuvastatin Calcium 5 Mg Tab) 5 mg PO QAM ANDRE Stop: 02/19/25 08:59 Last Admin: 01/30/25 09:33 Dose: 5 mg Sodium Chloride (Sodium Chloride 0.65% Na Soln 45 Ml ([place])) 1 - 2 sprays NA PRN PRN PRN Reason: Nasal Dryness/Congestion Stop: 02/15/25 23:22 Mental Health & Subst Abuse Tx Psychiatrist Name of Psychiatrist: Yue Grigsby - [address] [place] [address] [address], [place] [address] Psychiatrist's Date Of Appointment With Psychiatric Provider: 02/06/25 Time of Appointment with Psychiatrist: 11:05AM arrival for 11:20AM appt Psychiatric Appointment Comment: In person appt Therapist Name of Therapist: [facility] - Jazmin Hogan (Dr. Silva - psychiatrist) Therapist's Post Discharge Appointments Primary Care Physician Name Of Family Doctor/PCP: Gilberto Alvarado Primary Care Provider Appointment Comment: Follow up as needed Pain Clinic Name of Pain Clinic: [facility] Phone Number for Pain Clinic: Date of Appointment with Pain Clinic: 02/13/25 Time of Appointment with Pain Clinic: 2pm Pain Clinic Appointment Comment: Telehealth appt. Rescheduled 01/23 multiple wire sawyer Name of Specialist: [facility]-Dr. Sana Hernandez Phone Number for Specialist: Date of Appointment with Specialist: 02/21/25 Time of Appointment with Specialist: 1:20p Specialty Appointment Comment: Donna Melendez. Rescheduled 01/31 appointment Contact Information Discharge Discharge Address: [address] [place] [id number]
--- NOTE | 2025-02-01 08:55 | Psychiatric Progress Note ---
Date of Service February 01, 2025 Impression / Recommendations Impression RACHEL ERWIN is a 54-year-old F who currently lives with brother, has a history of MDD with psychosis, psychogenic polydipsia, binge eating disorder, and was admitted on 01/16/25 22:03 on a 302 involuntary commitment for suicidal ideation with plan. Now on a 303 commitment which expires 02/08/2025. Diagnostically consistent with unspecified psychosis and depression with differential including major depressive disorder with psychotic features vs schizoaffective disorder current depressed mood. Suspect higher likelihood for schizoaffective disorder, with later life onset, given multiple hospitalizations over the last year and limited improvement except with ECT. Seems she has very prominent negative symptoms. A: Patient could be experiencing akathisia due to getting Maintena yesterday and remaining on p.o. Abilify. Supposed to stay on p.o. Abilify for 2 weeks after Maintena, but I will decrease the dose to 10 mg and see if this improves the side effects. Encourage patient to continue to be active and self- motivated. Overall, I spent a total of 26 minutes on this case including meeting with the patient, reviewing the chart, interdisciplinary meeting, orders, and documentation. (1) Depression with suicidal ideation: (2) Suicidal ideation: (3) Schizoaffective disorder: (4) Noncompliance with medications: (5) Urinary tract infection: Plan 02/01/25: Decrease Abilify to 10 mg daily p.o. 01/31/25: Continue current meds and treatment plan plan 01/30/25: Start BuSpar 10 mg 3 times daily. Start Abilify Maintena 400 mg IM every 30 days, first dose today. Petitioning for outpatient commitment. 01/29/25: Start BuSpar 5 mg twice daily. Family meeting today. Developing behavioral plan. 01/28/25: Continue current medications. Initiating behavioral plan. 01/27/25: Continue current medications. Patient is agreeable to Abilify Asimptufii. 01/26/2025: -Continue current medications -Consider Abilify NIELSEN after family support meeting to get a sense of whether or not we are getting closer to Rachel's baseline 01/25/2025: -Continue current medications -Investigate possibility for ECT if she remains willing for this 01/24/2025: -Continue current medications and treatment plan 01/23/2025: -Continue current medications and treatment plan 01/22/2025: -Continue current medications and treatment plan 01/21/2025: -Continue current medications and treatment plan 01/20/2025: -Increase abilify to 15mg daily tomorrow 01/19/2025: -Start crestor 5mg daily 01/18/2025: -Discontinue cariprazine -Start Abilify 10mg daily -Consider crestor initiation if she consents -303 hearing tomorrow 01/17/2005:The patient was admitted to the [facility] ([facility]) on q15 min checks (behavioral with suicide precautions) for safety. The patient will participate in group, recreational, and milieu therapies and will be offered additional individual and family sessions as clinically appropriate. -Continue Duloxetine 60mg daily -Increase Cariprazine to 6mg HS -Lorazepam 1mg Q6hr PRN for anxiety, insomnia -D/c home Adderall -Labs: A1c, fasting lipids, Vit D, Vit B12 Inventory Assets Strengths: family support, outpatient care connection Needs: improved insight, medication adherence Suicide Risk Level Suicide Risk Level: High-Moderate (q15 min suicide checks) (depression with SI with plan and actions (created noose) prior to admission but mood improving, denies SI and feels able to ask staff for support and no command AH) Risk Factors Assessment Male: No : Yes Do You Have Access To A Gun?: No Health Problems: No Mental Health Diagnoses: Yes Substance Use Disorders: No Previous Attempt: Yes Family History of Suicide: No Previous Psychiatric Hospitalization: Yes Hopelessness: Yes Protective Factors Assessment Jainism Beliefs: No : No Responsible for Young Children: No Employed: No Stable Relationships: No Supportive Family: Yes Good Rapport with Provider: Yes Absence of Any Risk Factors Above: No Interval History Identifying Information RACHEL ERWIN is a 54-year-old F who currently lives with brother, has a history of MDD with psychosis, schizoaffective disorder, psychogenic polydipsia, binge eating disorder, and was admitted on 01/16/25 22:03 on a 302 involuntary commitment for suicidal ideation with plan. Chief Complaint " I'm kind of restless". Review of Systems Sleep Information Total Hours of Sleep: 8 Meal Information Percent Meal Consumed - Breakfast: 100 Percent Meal Consumed - Lunch: 75 Percent Meal Consumed - Dinner: 80 Subjective Subjective Patient was seen & assessed and interval progress reviewed with nursing and social work per report: slept 8 hours attending groups showing in groups when actively engaged eating well mood 07/25 and feeling "nostalgic" adherent with behavioral plan manic male peer was intrusive with her, and she set firm, appropriate boundaries hearing scheduled for Wednesday I met with the patient privately in her room. She says anxiety has been better and BuSpar is helping. She does report she feels "kind of restless." Describes it as difficulty sitting still, and feeling she is crawling out of her skin. Also describes feeling bored due to ongoing admission. Denies changes to gait. Denies tremor. Denies stiffness. She says she had poor sleep last night but this is unusual. Denies auditory hallucinations or paranoia. Physical Exam Psychiatric Orientation: alert and oriented x 3 Apperance: + disheveled Eye Contact: + fair eye contact Motor Behavior: steady gait and station and no abnormal motor movements Speech: normal rate/rhythm/volume of speech Affect: + blunted affect Thought Process: linear/logical thought process and + concrete thought process Thought Content: reality based without delusions Suicidal Thoughts: denies suicidal thoughts, denies suicidal plan and denies suicidal intent Homicidal Thoughts: denies homicidal thoughts, denies homicidal plan and denies homicidal intent Hallucinations: no auditory hallucinations and no visual hallucinations Cognition: recent memory grossly intact, remote memory grossly intact and language grossly intact Estimated Intelligence: consistent with education level Insight: + fair insight Judgment: + fair judgement Vital Signs (Past 24 Hours) Last Vital Signs Temp 36.6 C 02/01/25 06:17 Pulse 91 H 02/01/25 06:18 Resp 16 02/01/25 06:17 BP 85/62 L 02/01/25 06:18 Pulse Ox 95 01/31/25 06:22 O2 Del Method Room Air 01/31/25 06:22 Results & Data ([facility]) Current Inpatient Medications Current Inpatient Medications: Current Inpatient Medications Acetaminophen (Acetaminophen 325 Mg Tab) 650 mg PO Q4H PRN PRN Reason: Headache or Minor Fever Stop: 02/17/25 10:19 Al Hydrox/Mg Hydrox/Simethicone (Aluminum/Magnesium Susp 30 Ml Udc) 30 ml PO Q4H PRN PRN Reason: GI Upset Stop: 02/15/25 23:22 Aripiprazole (Aripiprazole 15 Mg Tab) 15 mg PO QAM [facility] Stop: 02/10/25 08:59 Last Admin: 01/31/25 09:18 Dose: 15 mg Bismuth Subsalicylate (Bismuth Subsalicylate 262 Mg Chew) 2 tab PO Q30M PRN PRN Reason: Loose Stool/Diarrhea Stop: 02/15/25 23:22 Buspirone HCl (Buspirone 5 Mg Tab) 10 mg PO TID ANDRE Stop: 03/01/25 20:59 Last Admin: 01/31/25 20:31 Dose: 10 mg Buspirone HCl (Buspirone 5 Mg Tab) 10 mg PO TID PRN PRN Reason: breakthrough anxiety Stop: 03/01/25 20:59 Duloxetine HCl (Duloxetine Hcl 60 Mg Cap) 60 mg PO QAM [facility] Stop: 02/16/25 08:59 Last Admin: 01/31/25 09:18 Dose: 60 mg Lorazepam (Lorazepam 0.5 Mg Tab) 0.5 mg PO Q6 PRN PRN Reason: Anxiety Stop: 02/15/25 23:21 Magnesium Hydroxide (Magnesium Hydroxide Susp 30 Ml Udc) 30 ml PO DAILY PRN PRN Reason: Constipation Stop: 02/15/25 23:22 Rosuvastatin Calcium (Rosuvastatin Calcium 5 Mg Tab) 5 mg PO QAM [facility] Stop: 02/19/25 08:59 Last Admin: 01/31/25 09:19 Dose: 5 mg Sodium Chloride (Sodium Chloride 0.65% Na Soln 45 Ml ([place])) 1 - 2 sprays NA PRN PRN PRN Reason: Nasal Dryness/Congestion Stop: 02/15/25 23:22 Mental Health & Subst Abuse Tx Psychiatrist Name of Psychiatrist: Yue Grigsby - [address] [place] [address] Rd [address], [place] [address] Psychiatrist's Date Of Appointment With Psychiatric Provider: 02/06/25 Time of Appointment with Psychiatrist: 11:05AM arrival for 11:20AM appt Psychiatric Appointment Comment: In person appt Therapist Name of Therapist: [facility] - Jazmin Hogan (Dr. Silva - psychiatrist) Therapist's Post Discharge Appointments Primary Care Physician Name Of Family Doctor/PCP: Gilberto Alvarado Primary Care Provider Appointment Comment: Follow up as needed Pain Clinic Name of [facility] Clinic: [facility] Phone Number for Pain Clinic: Date of Appointment with Pain Clinic: 02/13/25 Time of Appointment with Pain Clinic: 2pm Pain Clinic Appointment Comment: Telehealth appt. Rescheduled 01/23 change number operator Name of Specialist: [facility]-Dr. Sana Hernandez Phone Number for Specialist: Date of Appointment with Specialist: 02/21/25 Time of Appointment with Specialist: 1:20p Specialty Appointment Comment: Donna Melendez. Rescheduled 01/31 appointment Contact Information Discharge Discharge Address: [address] [place] [id number]
[2025-02-01] MEDS: LORazepam 0.5 MG TAB PO PRN (21:23)
--- NOTE | 2025-02-02 08:50 | Psychiatric Progress Note ---
Date of Service February 02, 2025 Impression / Recommendations Impression RACHEL ERWIN is a 54-year-old F who currently lives with brother, has a history of MDD with psychosis, psychogenic polydipsia, binge eating disorder, and was admitted on 01/16/25 22:03 on a 302 involuntary commitment for suicidal ideation with plan. Now on a 303 commitment which expires 02/08/2025. Diagnostically consistent with unspecified psychosis and depression with differential including major depressive disorder with psychotic features vs schizoaffective disorder current depressed mood. Suspect higher likelihood for schizoaffective disorder, with later life onset, given multiple hospitalizations over the last year and limited improvement except with ECT. Seems she has very prominent negative symptoms. A: patient is continuing to show improvement, adhering to behavioral plan and attending most groups. Needs some encouragement, but thoughts are organized and she is tolerating medications well. No medication changes needed today. Outpatient commitment hearing is scheduled for Wednesday morning, and patient will discharge after that. Overall, I spent a total of 26 minutes on this case including meeting with the patient, reviewing the chart, interdisciplinary meeting, orders, and documentation. (1) Depression with suicidal ideation: (2) Suicidal ideation: (3) Schizoaffective disorder: (4) Noncompliance with medications: (5) Urinary tract infection: Plan 02/02/25: Continue current medications and treatment. 02/01/25: Decrease Abilify to 10 mg daily p.o. 01/31/25: Continue current meds and treatment plan plan 01/30/25: Start BuSpar 10 mg 3 times daily. Start Abilify Maintena 400 mg IM every 30 days, first dose today. Petitioning for outpatient commitment. 01/29/25: Start BuSpar 5 mg twice daily. Family meeting today. Developing behavioral plan. 01/28/25: Continue current medications. Initiating behavioral plan. 01/27/25: Continue current medications. Patient is agreeable to Abilify Asimptufii. 01/26/2025: -Continue current medications -Consider Abilify NIELSEN after family support meeting to get a sense of whether or not we are getting closer to Rachel's baseline 01/25/2025: -Continue current medications -Investigate possibility for ECT if she remains willing for this 01/24/2025: -Continue current medications and treatment plan 01/23/2025: -Continue current medications and treatment plan 01/22/2025: -Continue current medications and treatment plan 01/21/2025: -Continue current medications and treatment plan 01/20/2025: -Increase abilify to 15mg daily tomorrow 01/19/2025: -Start crestor 5mg daily 01/18/2025: -Discontinue cariprazine -Start Abilify 10mg daily -Consider crestor initiation if she consents -303 hearing tomorrow 01/17/2005:The patient was admitted to the [facility] ([facility]) on q15 min checks (behavioral with suicide precautions) for safety. The patient will participate in group, recreational, and milieu therapies and will be offered additional individual and family sessions as clinically appropriate. -Continue Duloxetine 60mg daily -Increase Cariprazine to 6mg HS -Lorazepam 1mg Q6hr PRN for anxiety, insomnia -D/c home Adderall -Labs: A1c, fasting lipids, Vit D, Vit B12 Inventory Assets Strengths: family support, outpatient care connection Needs: improved insight, medication adherence Suicide Risk Level Suicide Risk Level: High-Moderate (q15 min suicide checks) (depression with SI with plan and actions (created noose) prior to admission but mood improving, denies SI and feels able to ask staff for support and no command ) Risk Factors Assessment Male: No : Yes Do You Have Access To A Gun?: No Health Problems: No Mental Health Diagnoses: Yes Substance Use Disorders: No Previous Attempt: Yes Family History of Suicide: No Previous Psychiatric Hospitalization: Yes Hopelessness: Yes Protective Factors Assessment Latter-Day Beliefs: No : No Responsible for Young Children: No Employed: No Stable Relationships: No Supportive Family: Yes Good Rapport with Provider: Yes Absence of Any Risk Factors Above: No Interval History Identifying Information RACHEL ERWIN is a 54-year-old F who currently lives with brother, has a history of MDD with psychosis, schizoaffective disorder, psychogenic polydipsia, binge eating disorder, and was admitted on 01/16/25 22:03 on a 302 involuntary commitment for suicidal ideation with plan. Chief Complaint "[]". Review of Systems Sleep Information Total Hours of Sleep: 8 Meal Information Percent Meal Consumed - Breakfast: 80 Percent Meal Consumed - Lunch: 50 Percent Meal Consumed - Dinner: 100 Subjective Subjective Patient was seen & assessed and interval progress reviewed with [treatment team per report: going to groups tending to ADLs adhering to behavioral plan mood 10 and "tired" eating well denies SI thoughts more organized I met with the patient privately in her room. She was lying in bed, says she was "playing hockey" from the group, but plans to attend group later. She says she is missing her dog this morning, but is optimistic regarding discharge. She denies any side effects. Denies depression or SI. Reports anxiety is minimal, if any. Denies auditory hallucinations. Restlessness has improved significantly. Physical Exam Psychiatric Orientation: alert and oriented x 3 Apperance: appropriately dressed and + disheveled Eye Contact: + fair eye contact Motor Behavior: steady gait and station and no abnormal motor movements; n tremor Speech: normal rate/rhythm/volume of speech Affect: + blunted affect Thought Process: linear/logical thought process and + concrete thought process Thought Content: + preoccupation and reality based without delusions Suicidal Thoughts: denies suicidal thoughts, denies suicidal plan and denies suicidal intent Homicidal Thoughts: denies homicidal thoughts, denies homicidal plan and denies homicidal intent Hallucinations: no auditory hallucinations and no visual hallucinations Cognition: recent memory grossly intact, remote memory grossly intact and language grossly intact Estimated Intelligence: consistent with education level Insight: + fair insight Judgment: + fair judgement Vital Signs (Past 24 Hours) Last Vital Signs Temp 36.3 C L 02/02/25 06:19 Pulse 80 02/02/25 06:20 Resp 16 02/02/25 06:19 BP 115/75 02/02/25 06:20 Pulse Ox 95 01/31/25 06:22 O2 Del Method Room Air 01/31/25 06:22 Results & Data ([facility]) Current Inpatient Medications Current Inpatient Medications: Current Inpatient Medications Acetaminophen (Acetaminophen 325 Mg Tab) 650 mg PO Q4H PRN PRN Reason: Headache or Minor Fever Stop: 02/17/25 10:19 Al Hydrox/Mg Hydrox/Simethicone (Aluminum/Magnesium Susp 30 Ml Udc) 30 ml PO Q4H PRN PRN Reason: GI Upset Stop: 02/15/25 23:22 Aripiprazole (Aripiprazole 10 Mg Tab) 10 mg PO QAM ANDRE Stop: 03/04/25 08:59 Bismuth Subsalicylate (Bismuth Subsalicylate 262 Mg Chew) 2 tab PO Q30M PRN PRN Reason: Loose Stool/Diarrhea Stop: 02/15/25 23:22 Buspirone HCl (Buspirone 5 Mg Tab) 10 mg PO TID ANDRE Stop: 03/01/25 20:59 Last Admin: 02/01/25 20:16 Dose: 10 mg Buspirone HCl (Buspirone 5 Mg Tab) 10 mg PO TID PRN PRN Reason: breakthrough anxiety Stop: 03/01/25 20:59 Duloxetine HCl (Duloxetine Hcl 60 Mg Cap) 60 mg PO QAM ANDRE Stop: 02/16/25 08:59 Last Admin: 02/01/25 09:25 Dose: 60 mg Lorazepam (Lorazepam 0.5 Mg Tab) 0.5 mg PO Q6 PRN PRN Reason: Anxiety Stop: 02/15/25 23:21 Last Admin: 02/01/25 21:23 Dose: 0.5 mg Magnesium Hydroxide (Magnesium Hydroxide Susp 30 Ml Udc) 30 ml PO DAILY PRN PRN Reason: Constipation Stop: 02/15/25 23:22 Rosuvastatin Calcium (Rosuvastatin Calcium 5 Mg Tab) 5 mg PO QAM ANDRE Stop: 02/19/25 08:59 Last Admin: 02/01/25 09:25 Dose: 5 mg Sodium Chloride (Sodium Chloride 0.65% Na Soln 45 Ml ([place])) 1 - 2 sprays NA PRN PRN PRN Reason: Nasal Dryness/Congestion Stop: 02/15/25 23:22 Mental Health & Subst Abuse Tx Psychiatrist Name of Psychiatrist: Yue Grigsby - [address], [place] [address] Psychiatrist's Date Of Appointment With Psychiatric Provider: 02/06/25 Time of Appointment with Psychiatrist: 11:05AM arrival for 11:20AM appt Psychiatric Appointment Comment: In person appt Therapist Name of Therapist: [facility] Therapist's Date of Therapist Appointment: on waitlist- approx 6-8 weeks Time of Therapist Appointment: [address] [facility] [address] Therapy Appointment Comment: You are on the waitlist. They'll call ([email or web address]) to schedule intake appt. Post Discharge Appointments Primary Care Physician Name Of Family Doctor/PCP: Gilberto Alvarado Primary Care Provider Appointment Comment: Follow up as needed Pain Clinic Name of Pain Clinic: [facility] Phone Number for Pain Clinic: Date of Appointment with Pain Clinic: 02/13/25 Time of Appointment with Pain Clinic: 2pm Pain Clinic Appointment Comment: Telehealth appt. Rescheduled 01/23 almond paste mixer Name of Specialist: [facility]-Dr[facility] Sana Hernandez Phone Number for Specialist: Date of Appointment with Specialist: 02/21/25 Time of Appointment with Specialist: 1:20p Specialty Appointment Comment: Donna Melendez. Rescheduled 01/31 appointment Contact Information Discharge Discharge Address: [address] [place] [id number]
[2025-02-03 06:36] VITALS: TEMP 98.2
--- NOTE | 2025-02-03 15:22 | Psychiatric Progress Note ---
Date of Service February 03, 2025 Impression / Recommendations Impression RACHEL ERWIN is a 54-year-old F who currently lives with brother, has a history of MDD with psychosis, psychogenic polydipsia, binge eating disorder, and was admitted on 01/16/25 22:03 on a 302 involuntary commitment for suicidal ideation with plan. Now on a 303 commitment which expires 02/08/2025. Diagnostically consistent with unspecified psychosis and depression with differential including major depressive disorder with psychotic features vs schizoaffective disorder current depressed mood. A: Patient presents a brighter affect and has been engaging well in groups. Peers to be tolerating the medications well and we will plan to continue. Concern for decompensation at home and will facilitate increased structure and assistance. Denies current safety concerns. Overall, I spent a total of 30 minutes on this case including meeting with the patient, reviewing the chart, interdisciplinary meeting, orders, and documentation. (1) Depression with suicidal ideation: (2) Suicidal ideation: (3) Noncompliance with medications: (4) Urinary tract infection: (5) MDD (major depressive disorder), recurrent severe, without psychosis: Plan 02/03/2025: Continue medications and treatment plan 02/02/25: Continue current medications and treatment. 02/01/25: Decrease Abilify to 10 mg daily p.o. 01/31/25: Continue current meds and treatment plan plan 01/30/25: Start BuSpar 10 mg 3 times daily. Start Abilify Maintena 400 mg IM every 30 days, first dose today. Petitioning for outpatient commitment. 01/29/25: Start BuSpar 5 mg twice daily. Family meeting today. Developing behavioral plan. 01/28/25: Continue current medications. Initiating behavioral plan. 01/27/25: Continue current medications. Patient is agreeable to Abilify Asimptufii. 01/26/2025: -Continue current medications -Consider Abilify NIELSEN after family support meeting to get a sense of whether or not we are getting closer to Rachel's baseline 01/25/2025: -Continue current medications -Investigate possibility for ECT if she remains willing for this 01/24/2025: -Continue current medications and treatment plan 01/23/2025: -Continue current medications and treatment plan 01/22/2025: -Continue current medications and treatment plan 01/21/2025: -Continue current medications and treatment plan 01/20/2025: -Increase abilify to 15mg daily tomorrow 01/19/2025: -Start crestor 5mg daily 01/18/2025: -Discontinue cariprazine -Start Abilify 10mg daily -Consider crestor initiation if she consents -303 hearing tomorrow 01/17/2005:The patient was admitted to the [facility] ([facility]) on q15 min checks (behavioral with suicide precautions) for safety. The patient will participate in group, recreational, and milieu therapies and will be offered additional individual and family sessions as clinically appropriate. -Continue Duloxetine 60mg daily -Increase Cariprazine to 6mg HS -Lorazepam 1mg Q6hr PRN for anxiety, insomnia -D/c home Adderall -Labs: A1c, fasting lipids, Vit D, Vit B12 Inventory Assets Strengths: family support, outpatient care connection Needs: improved insight, medication adherence Suicide Risk Level Suicide Risk Level: High-Moderate (q15 min suicide checks) (depression with SI with plan and actions (created noose) prior to admission but mood improving, denies SI and feels able to ask staff for support and no command AH) Risk Factors Assessment Male: No : Yes Do You Have Access To A Gun?: No Health Problems: No Mental Health Diagnoses: Yes Substance Use Disorders: No Previous Attempt: Yes Family History of Suicide: No Previous Psychiatric Hospitalization: Yes Hopelessness: Yes Protective Factors Assessment Sabianism Beliefs: No : No Responsible for Young Children: No Employed: No Stable Relationships: No Supportive Family: Yes Good Rapport with Provider: Yes Absence of Any Risk Factors Above: No Interval History Identifying Information RACHEL ERWIN is a 54-year-old F who currently lives with brother, has a history of MDD with psychosis, schizoaffective disorder, psychogenic polydipsia, binge eating disorder, and was admitted on 01/16/25 22:03 on a 302 involuntary commitment for suicidal ideation with plan. Chief Complaint "Better, less dark thoughts" Review of Systems Sleep Information Total Hours of Sleep: 8.75 Meal Information Percent Meal Consumed - Breakfast: 100 Percent Meal Consumed - Lunch: 100 Percent Meal Consumed - Dinner: 100 Subjective Subjective Patient was seen & assessed and interval progress reviewed with treatment team nursing and social work The patient reports being in a better mood and has more positive thinking. Seen smiling at times however mostly flat affect. She denies significant anxiety. Says that she feels safe and denies paranoia. Denies SI. Reports tolerating the medications well. Reports a plan to go back to work and spend time with her dogs. We discussed how the transition to home would be like and the supports she would need. Physical Exam Mental Examination Appearance: Disheveled Eye Contact: Diverts Contact Motor Behavior: Unremarkable Speech: Delayed Mood: Depressed Affect: Constricted Thought Process: Intact and Slowed Thinking Thought Content: Intact and [place] (at times) Hallucinations: None Insight: Poor (to limited) Judgement: Poor (to limited) Vital Signs (Past 24 Hours) Last Vital Signs Temp 36.8 C 02/03/25 06:35 Pulse 70 02/03/25 06:35 Resp 16 02/03/25 06:35 BP 120/84 02/03/25 06:36 Pulse Ox 97 02/03/25 06:35 O2 Del Method Room Air 02/03/25 06:35 Results & Data ([facility]) Current Inpatient Medications Current Inpatient Medications: Current Inpatient Medications Acetaminophen (Acetaminophen 325 Mg Tab) 650 mg PO Q4H PRN PRN Reason: Headache or Minor Fever Stop: 02/17/25 10:19 Al Hydrox/Mg Hydrox/Simethicone (Aluminum/Magnesium Susp 30 Ml Udc) 30 ml PO Q4H PRN PRN Reason: GI Upset Stop: 02/15/25 23:22 Aripiprazole (Aripiprazole 10 Mg Tab) 10 mg PO QAM ANDRE Stop: 03/04/25 08:59 Last Admin: 02/03/25 09:01 Dose: 10 mg Bismuth Subsalicylate (Bismuth Subsalicylate 262 Mg Chew) 2 tab PO Q30M PRN PRN Reason: Loose Stool/Diarrhea Stop: 02/15/25 23:22 Buspirone HCl (Buspirone 5 Mg Tab) 10 mg PO TID ANDRE Stop: 03/01/25 20:59 Last Admin: 02/03/25 13:57 Dose: 10 mg Buspirone HCl (Buspirone 5 Mg Tab) 10 mg PO TID PRN PRN Reason: breakthrough anxiety Stop: 03/01/25 20:59 Duloxetine HCl (Duloxetine Hcl 60 Mg Cap) 60 mg PO QAM ANDRE Stop: 02/16/25 08:59 Last Admin: 02/03/25 09:01 Dose: 60 mg Lorazepam (Lorazepam 0.5 Mg Tab) 0.5 mg PO Q6 PRN PRN Reason: Anxiety Stop: 02/15/25 23:21 Last Admin: 02/02/25 18:25 Dose: 0.5 mg Magnesium Hydroxide (Magnesium Hydroxide Susp 30 Ml Udc) 30 ml PO DAILY PRN PRN Reason: Constipation Stop: 02/15/25 23:22 Rosuvastatin Calcium (Rosuvastatin Calcium 5 Mg Tab) 5 mg PO QAM ANDRE Stop: 02/19/25 08:59 Last Admin: 02/03/25 09:01 Dose: 5 mg Sodium Chloride (Sodium Chloride 0.65% Na Soln 45 Ml ([place])) 1 - 2 sprays NA PRN PRN PRN Reason: Nasal Dryness/Congestion Stop: 02/15/25 23:22 Mental Health & Subst Abuse Tx Psychiatrist Name of Psychiatrist: Yue Grigsby - [address] [place] [address] [address], [place] [address] Psychiatrist's Date Of Appointment With Psychiatric Provider: 02/06/25 Time of Appointment with Psychiatrist: 11:05AM arrival for 11:20AM appt Psychiatric Appointment Comment: In person appt Therapist Name of Therapist: [facility] Therapist's Date of Therapist Appointment: on waitlist- approx 6-8 weeks Time of Therapist Appointment: [address] [place] [address] Therapy Appointment Comment: You are on the waitlist. They'll call (Abdulaziz) to schedule intake appt. Post Discharge Appointments Primary Care Physician Name Of Family Doctor/PCP: Gilberto Alvarado Primary Care Provider Appointment Comment: Follow up as needed Pain Clinic Name of Pain Clinic: [facility] Phone Number for Pain Clinic: Date of Appointment with Pain Clinic: 02/13/25 Time of Appointment with Pain Clinic: 2pm Pain Clinic Appointment Comment: Telehealth appt. 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 Sana Hernandez Phone Number for Specialist: Date of Appointment with Specialist: 02/21/25 Time of Appointment with Specialist: 1:20p Specialty Appointment Comment: Donna Melendez. Rescheduled 01/31 appointment Other #1: Name of Aftercare Appointment: Dwight @ [facility]-medication management & Kenneth Maintenna injection appt. Phone Number of Aftercare Appointment: [phone] Date of Aftercare Appointment: 03/02/25 Time of Aftercare Appointment: 4:00pm Aftercare Appointment Comment: This is your follow up appointment for med management AND your NIELSEN Contact Information Discharge Discharge Address: [address] [place] [id number]
[2025-02-04 06:46] VITALS: RESP 18; O2SAT 96
--- NOTE | 2025-02-04 14:01 | Psychiatric Progress Note ---
Date of Service February 04, 2025 Impression / Recommendations Impression RACHEL ERWIN is a 54-year-old F who currently lives with brother, has a history of MDD with psychosis, psychogenic polydipsia, binge eating disorder, and was admitted on 01/16/25 22:03 on a 302 involuntary commitment for suicidal ideation with plan. Now on a 303 commitment which expires 02/08/2025. Diagnostically consistent with unspecified psychosis and depression with differential including major depressive disorder with psychotic features vs schizoaffective disorder current depressed mood. A: Patient is presenting a more reactive affect and improved movements however remains flat most of the day and requires prompting for self-care. No indication of suicidal ideation at this time. We discussed challenges to returning home and potential treatments if depression worsens. Overall, I spent a total of 30 minutes on this case including meeting with the patient, reviewing the chart, interdisciplinary meeting, orders, and documentation. (1) Depression with suicidal ideation: (2) Suicidal ideation: (3) Noncompliance with medications: (4) Urinary tract infection: (5) MDD (major depressive disorder), recurrent severe, without psychosis: Plan 02/04/2025: Continue medications and treatment plan 02/03/2025: Continue medications and treatment plan 02/02/25: Continue current medications and treatment. 02/01/25: Decrease Abilify to 10 mg daily p.o. 01/31/25: Continue current meds and treatment plan plan 01/30/25: Start BuSpar 10 mg 3 times daily. Start Abilify Maintena 400 mg IM every 30 days, first dose today. Petitioning for outpatient commitment. 01/29/25: Start BuSpar 5 mg twice daily. Family meeting today. Developing behavioral plan. 01/28/25: Continue current medications. Initiating behavioral plan. 01/27/25: Continue current medications. Patient is agreeable to Abilify Asimptufii. 01/26/2025: -Continue current medications -Consider Abilify NIELSEN after family support meeting to get a sense of whether or not we are getting closer to Rachel's baseline 01/25/2025: -Continue current medications -Investigate possibility for ECT if she remains willing for this 01/24/2025: -Continue current medications and treatment plan 01/23/2025: -Continue current medications and treatment plan 01/22/2025: -Continue current medications and treatment plan 01/21/2025: -Continue current medications and treatment plan 01/20/2025: -Increase abilify to 15mg daily tomorrow 01/19/2025: -Start crestor 5mg daily 01/18/2025: -Discontinue cariprazine -Start Abilify 10mg daily -Consider crestor initiation if she consents -303 hearing tomorrow 01/17/2005:The patient was admitted to the [facility] ([facility]) on q15 min checks (behavioral with suicide precautions) for safety. The patient will participate in group, recreational, and milieu therapies and will be offered additional individual and family sessions as clinically appropriate. -Continue Duloxetine 60mg daily -Increase Cariprazine to 6mg HS -Lorazepam 1mg Q6hr PRN for anxiety, insomnia -D/c home Adderall -Labs: A1c, fasting lipids, Vit D, Vit B12 Inventory Assets Strengths: family support, outpatient care connection Needs: improved insight, medication adherence Suicide Risk Level Suicide Risk Level: High-Moderate (q15 min suicide checks) (depression with SI with plan and actions (created noose) prior to admission but mood improving, denies SI and feels able to ask staff for support and no command AH) Risk Factors Assessment Male: No : Yes Do You Have Access To A Gun?: No Health Problems: No Mental Health Diagnoses: Yes Substance Use Disorders: No Previous Attempt: Yes Family History of Suicide: No Previous Psychiatric Hospitalization: Yes Hopelessness: Yes Protective Factors Assessment Faith Beliefs: No : No Responsible for Young Children: No Employed: No Stable Relationships: No Supportive Family: Yes Good Rapport with Provider: Yes Absence of Any Risk Factors Above: No Interval History Identifying Information RACHEL ERWIN is a 54-year-old F who currently lives with brother, has a history of MDD with psychosis, schizoaffective disorder, psychogenic polydipsia, binge eating disorder, and was admitted on 01/16/25 22:03 on a 302 involuntary commitment for suicidal ideation with plan. Chief Complaint Depression Review of Systems Sleep Information Total Hours of Sleep: 8 Meal Information Percent Meal Consumed - Breakfast: 100 Percent Meal Consumed - Lunch: 100 Percent Meal Consumed - Dinner: 100 Subjective Subjective Patient was seen & assessed and interval progress reviewed with treatment team nursing and social work Overnight slept 8 hours. Received Ativan as needed for anxiety. Attending groups. Limited self-care and requires prompting. On interview she presents a flat affect however is quickly reactive and present to the interview. She reports sleeping well and endorses a fair mood. Reports challenges of returning home as being in a different environment. She enjoys her work because she likes to be busy. Reports feeling restless because there is not much to do and denies any increase in restlessness with addition of Abilify. Denies SI. Physical Exam Mental Examination Appearance: Disheveled Eye Contact: Diverts Contact Motor Behavior: Unremarkable Speech: Delayed Mood: Depressed Affect: Constricted Thought Process: Intact and Slowed Thinking Thought Content: Intact and [place] (at times) Hallucinations: None Insight: Poor (to limited) Judgement: Poor (to limited) Vital Signs (Past 24 Hours) Last Vital Signs Temp 36.8 C 02/03/25 06:35 Pulse 76 02/04/25 06:44 Resp 18 02/04/25 06:44 BP 97/67 L 02/04/25 06:44 Pulse Ox 96 02/04/25 06:44 O2 Del Method Room Air 02/04/25 06:44 Results & Data ([facility]) Current Inpatient Medications Current Inpatient Medications: Current Inpatient Medications Acetaminophen (Acetaminophen 325 Mg Tab) 650 mg PO Q4H PRN PRN Reason: Headache or Minor Fever Stop: 02/17/25 10:19 Al Hydrox/Mg Hydrox/Simethicone (Aluminum/Magnesium Susp 30 Ml Udc) 30 ml PO Q4H PRN PRN Reason: GI Upset Stop: 02/15/25 23:22 Aripiprazole (Aripiprazole 10 Mg Tab) 10 mg PO QAM [facility] Stop: 03/04/25 08:59 Last Admin: 02/04/25 08:56 Dose: 10 mg Bismuth Subsalicylate (Bismuth Subsalicylate 262 Mg Chew) 2 tab PO Q30M PRN PRN Reason: Loose Stool/Diarrhea Stop: 02/15/25 23:22 Buspirone HCl (Buspirone 5 Mg Tab) 10 mg PO TID [facility] Stop: 03/01/25 20:59 Last Admin: 02/04/25 13:19 Dose: 10 mg Buspirone HCl (Buspirone 5 Mg Tab) 10 mg PO TID PRN PRN Reason: breakthrough anxiety Stop: 03/01/25 20:59 Duloxetine HCl (Duloxetine Hcl 60 Mg Cap) 60 mg PO QAM ANDRE Stop: 02/16/25 08:59 Last Admin: 02/04/25 08:56 Dose: 60 mg Lorazepam (Lorazepam 0.5 Mg Tab) 0.5 mg PO Q6 PRN PRN Reason: Anxiety Stop: 02/15/25 23:21 Last Admin: 02/03/25 18:40 Dose: 0.5 mg Magnesium Hydroxide (Magnesium Hydroxide Susp 30 Ml Udc) 30 ml PO DAILY PRN PRN Reason: Constipation Stop: 02/15/25 23:22 Rosuvastatin Calcium (Rosuvastatin Calcium 5 Mg Tab) 5 mg PO QAM ANDRE Stop: 02/19/25 08:59 Last Admin: 02/04/25 08:56 Dose: 5 mg Sodium Chloride (Sodium Chloride 0.65% Na Soln 45 Ml ([place])) 1 - 2 sprays NA PRN PRN PRN Reason: Nasal Dryness/Congestion Stop: 02/15/25 23:22 Mental Health & Subst Abuse Tx Psychiatrist Name of Psychiatrist: Yue Grigsby - [address] [place] [address] [address], [place], [place] [address] Psychiatrist's Date Of Appointment With Psychiatric Provider: 02/06/25 Time of Appointment with Psychiatrist: 11:05AM arrival for 11:20AM appt Psychiatric Appointment Comment: In person appt Therapist Name of Therapist: [facility] The[facility]ist's Date of Therapist Appointment: on waitlist- approx 6-8 weeks Time of Therapist Appointment: [address] [facility] [address] Therapy Appointment Comment: You are on the waitlist. They'll call (Abdulaziz) to schedule intake appt. Post Discharge Appointments Primary Care Physician Name Of Family Doctor/PCP: Gilberto Alvarado Primary Care Provider Appointment Comment: Follow up as needed Pain Clinic Name of Pain Clinic: [facility] Phone Number for Pain Clinic: Date of Appointment with Pain Clinic: 02/13/25 Time of Appointment with Pain Clinic: 2pm Pain Clinic Appointment Comment: Telehealth appt. 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 Sana Hernandez Phone Number for Specialist: Date of Appointment with Specialist: 02/21/25 Time of Appointment with Specialist: 1:20p Specialty Appointment Comment: Donna Melendez. Rescheduled 01/31 appointment Other #1: Name of Aftercare Appointment: Dwight @ [facility]-medication management & Kenneth Maintenna injection appt. Phone Number of Aftercare Appointment: [phone] Date of Aftercare Appointment: 03/02/25 Time of Aftercare Appointment: 4:00pm Aftercare Appointment Comment: This is your follow up appointment for med management AND your NIELSEN Contact Information Discharge Discharge Address: [address] [place], [place] [address] [address]
[2025-02-05 06:50] VITALS: BP 91/63; PULSE 80
--- NOTE | 2025-02-05 12:24 | Discharge Summary ---
Date of Service February 05, 2025 History of Present Illness Patient seen laying in her bed and giving me direct eye contact. Often answers with a few words and has limited spontaneous speech. Flat affect. Inconsistent information presented at times. She reports her brother was worried about her committing suicide. Initially says that she had the thought and no plan and the reason was because she was "not happy". Suicidal ideation for the past month. Later when it is brought up she reports making a noose however did not tied around her neck or take any steps. Says she has been living with her brother after her last discharge from our hospital and in a separate room. Says she does not like living there because it is too controlling. 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 She denies having any anxiety or sleeping problems. Endorses low energy and low concentration. Denies excess guilt. Endorses anhedonia. Says that she was at [facility] for suicidal ideations and when asked what they did for she replies "not much". Reports ECT did help her for depression and was last tried 1 year ago. When asked why she refused her Ativan last night she says that it gives her more nightmares. Presents a current plan to return to work. She feels that the antidepressants never worked. Feels that Vraylar has been ineffective and that she stopped 1 week ago. Denies auditory visual sedations or recent episodes of marisela or hypomania (symptoms described). Denies having any fears or worries. Called ABDULAZIZ ERWIN pt brother with pt permission (35 min): 1-2 weeks stopped cariprazine. Since d/c discharged from [place] 1 mo ago less adherent (increased cariprazine to 6mg daily total and added duloxetine). Doing house work, found tied noose in her bed yesterday. Called psychologist immediately. Recently more agitated, more depressed. After last discharge from [facility], did 8 sessions of ECT. ECT was once weekly. Started improving dramatically. More expressive, laughing at times. More insight. Eating better. Rachel florentinowedged that. "Almost like a miracle" However did not f[facility]u with [facility]. Blacklisted her due to lack of f/u. not willing to continue care. Working with psychologist and psychiatrist at [facility]. After ECT, struggled with poor hygiene not bathing for weeks-months. Deteroriating depression. Sleeps all the time. Holds a job. Stoic with her broth er and is "Stone faced." No known AVH. Accusing brother of things that aren't true, accusing brother of commiting her. Not sure of medication change from Effexor to Cymbalta. Rachel c/o s/e. Brother didn't feel there were any real s/e. Brother having mental health problems trying to help her; now being treated himself and feels better. Collateral from recent case management and psych liaison notes: 01/17/25 00:16 - Psychiatric Liason Note by Ramona Moscoso "The patient reports that she told her brother that she wanted to kill herself and he called her therapist who made a petitioning statement on her. When asked, she did report making a noose, however, she denies that this was a plan for suicide. She is unable or unwilling to report why she made the noose. The pat sergio reports she was brought to the ED by the police. When asked about medication compliance, she reports she has been taking medications as prescribed and was able to voice what medications she is on. She reports her stressor that makes her suicidal is being inpatient- "I'm miserable being in hospitals all the time". The patient denies other stressors. The patient reported that she sleeps "fine" and eats "fine". When asked about her history of anorexia and binge eating, she denied that she still struggles with those diagnosis. The patient reports that she has a therapist and Psychiatrist through [facility]. Her therapist is Jazmin Hogan and her Psychiatrist is Dr. Silva. The patient has a PCP through [facility] named Hernando Maki. The patient signed ROIs for her therapist, psychiatrist, and her PCP. " 01/16/25 18:51 - Case Management ED Psych by Mily Helm "Petitioning statement completed by Jazmin Hogan, PHD from [facility] reads as follows: " Rachel's brother called with concerns today after Rachel reportedly stated last night that she wants to kill herself. He sated she would not disclose any further information at that time, but that this morning he found a homemade noose in her bed. Rachel has researched hanging/strangulation in the past when suicidal. Rachel has a diagnosis of Schizoaffective disorder (depressed type) and has a longstanding history of persistent medication non-compliance (currently prescribed Vraylar, Remeron, Adderall). Her brother also reported that he has been finding Vraylar in her bed/room after she appears to take it under his supervision and then does not. She was recently discharged on 12/13/2024 after a month long hospitalization at [facility] for similar reasons (suicidality, psychosis, unable to take care of herself) and has since again decompensated. Affect is flat and depressed, unable to engage with activities of daily living like bathing and changing clothing. Agitation and paranoia observed. Poor insight into severity of illness."" 01/16/25 20:45 - Case Management ED Psych by Kalyani Jin "Placed call to Rachel's brother, Abdulaziz, to confirm contents of petition statement by Rachel's MH provider. Abdulaziz reports that Rachel went to [facility] on 11/14 and was discharged 12/13. Abdulaziz and Rachel live in the same home in separate living areas. Abdulaziz states that following her discharge, she began to decompensate again and not take care of herself. Yesterday, she told him that she has been having an increase in suicidal thoughts and that she wishes she could go off somewhere privately and kill herself. This morning, he found a noose in her bed, prompting him to immediately reach out to her MH provider at the [facility], Jazmin Hogan, Ph.D. Abdulaziz reports that he had attempted to bring Rachel to the ED earlier today voluntarily but she refused to get out of the car for an evaluation and told him that she is fine. He reports she said, "Big deal, I have a noose in my bed." Abdulaziz shares that Rachel is not compliant with her medications, noting that he found several tablets of Vraylar scattered amongst her bed and on her floor in her bedroom. Rachel told Abdulaziz that she does not wish to take medication because it doesn't work and kills her spirit. He further shares that Rachel is not taking care of her hygiene and only showers when Abdulaziz prompts her to. She wears the same dirty clothes for several days on end. Spoke with Rachel at bedside to discuss information provided by the petition and by Abdulaziz. Her affect is extremely flat. She maintains fixed eye contact throughout discussion but almost appears as if she is looking past who she is speaking to. Rachel reports she feels "pretty good" and denies any need for inpatient intervention. She reports that medication does not help her, but reports that she has been taking them. 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 She largely denies any acute symptoms but does admit to suicidal ideation and making the noose. She states that inpatient treatment is what makes her suicidal. Rachel is diagnosed with Schizoaffective disorder. She follows with Dr. Silva for psychiatry and Jazmin Hogan once a week for therapy. Abdulaziz reports that he is Rachel's primary caregiver (helping with life tasks, not medical tasks) since her mental health hospitalization last year where she was diagnosed with depression with psychotic features. Rachel lacks insight to her severe mental health symptoms. She is not voluntary for treatment. Clinical reviewed with Dr. Brown who upheld 302 at 2024." Physical Exam Mental Examination Appearance: Disheveled Eye Contact: Maintains Eye Contact Motor Behavior: Unremarkable Speech: Delayed (limited spontaneous speech) Mood: Euthymic Affect: Flat Thought Process: Intact and Slowed Thinking Thought Content: Intact and Clutier (at times) Hallucinations: None Insight: Poor (to limited) Judgement: Poor (to limited) Vital Signs (Past 24 Hours) Last Vital Signs Temp 36.8 C 02/05/25 10:05 Pulse 80 02/05/25 10:05 Resp 18 02/05/25 10:05 BP 91/63 L 02/05/25 10:05 Pulse Ox 96 02/05/25 10:05 O2 Del Method Room Air 02/05/25 06:49 Principal Diagnosis MDD, recurrent, severe Psychiatric Data See daily stay summary. In short, safety was maintained and the patient was cooperative with care. Medication changes included d/c home cariprazine, stimulants, effexor and starting Cymbalta, Buspirone, and Aripiprazole and they tolerated this well. A family session was held and safety plan was completed prior to discharge. The patient presented with suicidal intent and plan as she was found to have a noose in her bed. Presented poor reality testing and increased paranoia, concerning for psychosis. She was living with brother and gets assistance for meals, medications, appointments, residential. She presents a history of recurrent psychiatric hospitalizations for severe depression with psychosis in the context of medication non-adherence and treatment resistance. Earlier this year she had a incomplete course of ECT (pt lost to f/u) and presented significant improvement per pt brother. There is concern for on-going medication adherence. She was transitioned to NIELSEN Abilify Maintena 400mg Qmonthly during the hospitalization. She was found to have a UTI on admission likely due to dehydration and lack of self care. Through the hospitalization, she presented an improved mood, brighter and more reactive affect, less psychomotor retardation, psychosis resolved, engagement in groups, denial of SI, and was future oriented with a rational plan. Given concern for recurrent admissions with severe depression and psychosis, personal safety concerns, concern for ability to care for self, and medication non-adherence a outpatient commitment was granted. Day of Discharge Assessment Today the patient voices readiness for discharge. They note improvement in mood and deny thoughts to harm self or others. Thoughts remain organized and they are improved from admission. There is no evidence of psychosis. They agree to take mediations as prescribed and keep follow-up appointments. They are stable for discharge to outpatient level of care. Overall, I spent a total of 60 minutes with this case including review of chart records, nursing report, review of lab work, direct evaluation of the patient at bedside, counseling the patient, multidisciplinary team meeting, orders, court hearing, meeting with family and documentation in the electronic health record. Transition of Care Transition Of Care Record: was reviewed with the patient Advance Directives Advance Directives Information Provided: Yes Advance Directives: No Mental Health Advance Directive: No Advance Directives on File: No Living Will: No Power of Director [employer]: No Advance Directives Reason:: Declines as Mental Health Visit. Risk Factors Assessment Male: No : Yes Do You Have Access To A Gun?: No Health Problems: No Mental Health Diagnoses: Yes Substance Use Disorders: No Previous Attempt: Yes Family History of Suicide: No Previous Psychiatric Hospitalization: Yes Hopelessness: Yes Protective Factors Assessment Jewish Beliefs: No : No Responsible for Young Children: No Employed: No Stable Relationships: No Supportive Family: Yes Good Rapport with Provider: Yes Absence of Any Risk Factors Above: No Discharge Data Lab Results 01/16/25 01/16/25 01/18/25 19:19 19:40 07:07 WBC 5.12 RBC 4.10 L Hgb 12.1 Hct 35.7 L MCV 87.1 MCH 29.5 MCHC 33.9 RDW Std Deviation 45.7 RDW Coeff of Emanuel 14.3 Plt Count 237 MPV 9.3 L Immature Gran % (Auto) 0.2 Neut % (Auto) 52.3 Lymph % (Auto) 40.6 [place] % (Auto) 6.1 Eos % (Auto) 0.2 Baso % (Auto) 0.6 Neut # (Auto) 2.68 Lymph # (Auto) 2.08 [place] # (Auto) 0.31 Eos # (Auto) 0.01 Baso # (Auto) 0.03 Immature Gran # (Auto) 0.01 Sodium 140 Potassium 3.6 Chloride 108 H Carbon Dioxide 26 Anion Gap 6 BUN 22 Creatinine 0.67 Est Cr Clr Drug Dosing 89.9 eGFR 103.80 BUN/Creatinine Ratio 32.8 H Glucose 115 H Estimat Average Glucose 114 Hemoglobin A1c 5.6 Calcium 8.9 Total Bilirubin 0.4 AST 14 ALT 12 Alkaline Phosphatase 84 Total Protein 6.4 Albumin 3.5 Globulin 2.9 Albumin/Globulin Ratio 1.2 Triglycerides 106 Cholesterol 239 H LDL Cholesterol, Calc 172 VLDL Cholesterol, Calc 21 HDL Cholesterol 46 Cholesterol/HDL Ratio 5.2 H Vitamin B12 285 25-OH Vitamin D Total 40.5 TSH 1.125 Urine Color Yellow Urine Appearance Clear Urine pH 6.0 Ur Specific [place] 1.028 Urine Protein Negative Urine Glucose (UA) Negative Urine Ketones Trace H Urine Blood Negative Urine Nitrite Negative Urine Bilirubin Negative Urine Urobilinogen Negative Ur Leukocyte Esterase 2+ H Urine WBC (Auto) >50 H Urine RBC (Auto) 0-2 U Hyaline Cast (Auto) 0-2 U Epithel Cells (Auto) 3-5 H Urine Bacteria (Auto) None Seen Urine Mucus Present A Urine Test Negative Urine Comment Salicylates < 3.0 L Urine Opiates Screen Neg Ur Methadone, Qual Neg Urine Fentanyl Screen Neg Acetaminophen < 3 L Urine Barbiturates Neg Ur Phencyclidine (PCP) Neg U Amphetamines Confirm 17546 H U Amphetamin/Meth Scrn Pos H U Methamphetamin Confrm NEGATIVE Urine MDEA negative MDMA (Ecstasy) Screen Pos H MDMA negative Urine MDMA negative U Benzodiazepines Scrn Neg Ur Cocaine Metabolite Neg U Marijuana (THC) Screen Neg Drug Screen Comment SEE NOTE Ethyl Alcohol mg/dL < 10.0 SARS-CoV-2, RNA, NAAT NEGATIVE Hospital Course (1) MDD (major depressive disorder), recurrent severe, without psychosis: (2) Noncompliance with medications: (3) Urinary tract infection: Plan 02/04/2025: Continue medications and treatment plan 02/03/2025: Continue medications and treatment plan 02/02/25: Continue current medications and treatment. 02/01/25: Decrease Abilify to 10 mg daily p.o. 01/31/25: Continue current meds and treatment plan plan 01/30/25: Start BuSpar 10 mg 3 times daily. Start Abilify Maintena 400 mg IM every 30 days, first dose today. Petitioning for outpatient commitment. 01/29/25: Start BuSpar 5 mg twice daily. Family meeting today. Developing behavioral plan. 01/28/25: Continue current medications. Initiating behavioral plan. 01/27/25: Continue current medications. Patient is agreeable to Abilify Asimptufii. 01/26/2025: -Continue current medications -Consider Abilify NIELSEN after family support meeting to get a sense of whether or not we are getting closer to Rachel's baseline 01/25/2025: -Continue current medications -Investigate possibility for ECT if she remains willing for this 01/24/2025: -Continue current medications and treatment plan 01/23/2025: -Continue current medications and treatment plan 01/22/2025: -Continue current medications and treatment plan 01/21/2025: -Continue current medications and treatment plan 01/20/2025: -Increase abilify to 15mg daily tomorrow 01/19/2025: -Start crestor 5mg daily 01/18/2025: -Discontinue cariprazine -Start Abilify 10mg daily -Consider crestor initiation if she consents -303 hearing tomorrow 01/17/2005:The patient was admitted [facility] on q15 min checks (behavioral with suicide precautions) for safety. The patient will participate in group, recreational, and milieu therapies and will be offered additional individual and family sessions as clinically appropriate. -Continue Duloxetine 60mg daily -Increase Cariprazine to 6mg HS -Lorazepam 1mg Q6hr PRN for anxiety, insomnia -D/c home Adderall -Labs: A1c, fasting lipids, Vit D, Vit B12 Mental Health & Subst Abuse Tx Psychiatrist [facility] [address] [facility] [address], [place] [address] Psychiatrist's Date Of Appointment With Psychiatric Provider: 02/06/25 Time of Appointment with Psychiatrist: 11:05AM arrival for 11:20AM appt Psychiatric Appointment Comment: In person appt Therapist Name of Therapist: [facility]'s Date of Therapist Appointment: on waitlist- approx 6-8 weeks Time of Therapist Appointment: [address] [facility] [address] Therapy Appointment Comment: You are on the waitlist. They'll call (Abdulaziz) to schedule intake appt. Post Discharge Appointments Primary Care Physician Name Of Family Doctor/PCP: Gilberto Alvarado Primary Care Provider Appointment Comment: Follow up as needed Pain Clinic Name of Pain Clinic: [facility] Phone Number for Pain Clinic: Date of Appointment with Pain Clinic: 02/13/25 Time of Appointment with Pain Clinic: 2pm Pain Clinic Appointment Comment: Telehealth appt. 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 Sana Hernandez Phone Number for Specialist: Date of Appointment with Specialist: 02/21/25 Time of Appointment with Specialist: 1:20p Specialty Appointment Comment: Donna Melendez. Rescheduled 01/31 appointment Other #1: Name of Aftercare Appointment: Dwight @ [facility]-medication management & Abilify Maintenna injection appt. Phone Number of Aftercare Appointment: [phone] Date of Aftercare Appointment: 03/02/25 Time of Aftercare Appointment: 4:00pm Aftercare Appointment Comment: This is your follow up appointment for med management AND your NIELSEN Contact Information Discharge Discharge [address]: [address] [place] [id number] Discharge Plan Discharge Items Patient Disposition: Home - Self-Care Reason For Visit: MAJOR DEPRESSIVE DISORDER Discharge Diagnosis: MDD, recurrent, severe Condition on Discharge: Fair Activity: Resume your previous activity Non-emergency contact: Primary Care Provider, Psychiatrist and Therapist Call non-emergency contact if: you have any medication questions and your symptoms worsen Follow-up/Referrals: Hernando Maki MD [Primary Care Provider] - Diet: Regular Addtl Attending Provider Instructions: Continue Abilify Maintena 400mg injections monthly, next on 02/27/25 Continue oral Abilify 10mg daily until 02/13/25, then stop Continue Buspirone 10mg three times daily Continue Duloxetine 60mg daily Follow-up with outpatient psychiatrist and therapist Stay adherent to medications Consider ECT (electroconvulsive therapy) if depression worsens Pending Studies at Discharge: No Stand-Alone Forms: [employer], Smoking Cessation Medications and DC Order Prescriptions: New aripiprazole [Abilify] 10 mg Tablet 10 mg PO QAM Qty: 8 0RF rosuvastatin 5 mg Tablet 5 mg PO QAM Qty: 30 0RF buspirone 10 mg tablet 10 mg PO TID Qty: 90 0RF duloxetine 60 mg Capsule,Delayed Release(Dr/Ec) 60 mg PO QAM Qty: 30 0RF Continued ergocalciferol (vitamin D2) [Vitamin D2] 1,250 mcg (50,000 unit) Capsule 1,250 mcg PO WK Discontinued dextroamphetamine-amphetamine 20 mg capsule,extended release 24hr 20 cap PO DAILY Rx Instructions: TAKE 1 CAPSULE BY MOUTH EVERY MORNING duloxetine 60 mg capsule,delayed release(DR/EC) 60 mg PO HS Vraylar 3 mg capsule 3 mg PO HS Patient Comments: patient states "I only take it once a day, at bedtime." Rx Instructions: TAKE 1 CAPSULE BY MOUTH TWO TIMES DAILY Discharge Orders: Discharge Order (Routine); Ordered 02/05/25 Ordered By: Hong Ramires Admission Data Admit Date/Time: 01/16/25 22:03 Attending Provider: Hong Ramires Admit Provider: Hong Ramires Primary Care Provider: Damaske,Hernando R. Other Providers: Josie Pederson Other Interventions: Discharge Summary Assessment (RN) Last Done: 02/05/25 10:05 [place] [address] D/C day mgmt > 30 min Patient Type Established History Detailed Exam Detailed Medical Decision Making High Complexity Diagnoses MDD (major depressive disorder), recurrent severe, without psychosis F33.2 Noncompliance with medications Z91.148 Urinary tract infection N39.0
== END 2025-02-05 13:42 | disposition home or self-care (01) | DRG 885 ==
LOC: ED 18:30 → 3S 22:03 → SUATTDRO 22:03 → 3S 23:04